=== PATIENT | male | born 1935 | race Caucasian/White ===

== ENCOUNTER 2016-04-09 18:06 | Inpatient (IN) | payer MEDICARE, BC ==
[~2016-04-09] VITALS: Ht 170.2 cm; Wt 85.0 kg
[~2016-04-09 18:06] MED LIST: ACET500C3 PO; ADV25050 INHALATION; CLON-379 PO; CLOP75TA4 PO; ESOM40CA PO; FEBU40TA PO; LEVO125T75 PO; LINE600T6 PO; MIN10 PO; OMEG1CAP2 PO; SENN-53 PO; TAMS0.4C2 PO; VALS320T11 PO; XOP15INH INH
[2016-04-09] MEDS ORDERED: SOD CHLORIDE 0.9% 250 ML IV STA (18:30)
[2016-04-09] MEDS ORDERED: ONDANSETRON 4 MG INJ IV STA (18:30)
[2016-04-09] MEDS ORDERED: HYDROmorphONE 1 MG/ML SYG IV STA (18:30)
--- NOTE | 2016-04-09 19:33 | RADRPT ---
PROCEDURE: XR Chest. CLINICAL INDICATION: Chest pain. TECHNIQUE: Single frontal view. COMPARISON: 03/28/2016. FINDINGS: There is a tunneled right internal jugular vein dialysis catheter with the tip in the superior vena cava. Bilateral interstitial disease is unchanged. The lungs are otherwise clear. The heart is mildly enlarged. There is calcification in the aorta consistent with atherosclerosis. There is no pleural effusion. There is no pneumothorax. IMPRESSION: 1. Dialysis catheter in satisfactory position. 2. Bilateral interstitial disease, unchanged. 3. Cardiomegaly and atherosclerosis. RPTAT: QQ .Kal Bowens MD, MD Date Time Electronically viewed and signed by .Kal Bowens MD, MD on 04/09/2016 19:33 .R/
[2016-04-09 19:35] LABS: BASOPHILS % 0.4 % (0.0-2.0); EOSINOPHILS # 0.2 10^3/ul (0.0-0.5); HEMATOCRIT 28.7 % (42.0-52.0); HEMOGLOBIN 9.4 g/dl (14.0-18.0); LYMPHOCYTES # 1.6 10^3/ul (0.8-2.9); LYMPHOCYTES % 16.6 % (15.0-51.0); MEAN CORPUSCULAR HEMOGLOBIN 29.3 pg (29.0-33.0); MEAN CORPUSCULAR HGB CONC 32.7 g/dl (32.0-37.0); MEAN CORPUSCULAR VOLUME 89.5 fl (82.0-101.0); MEAN PLATELET VOLUME 6.4 fl (7.4-10.4); MONOCYTE # 0.7 10^3/ul (0.3-0.9); MONOCYTES % 7.3 % (0.0-11.0); NEUTROPHIL # 7.1 10^3/ul (1.6-7.5); NEUTROPHILS % 73.7 % (39.0-77.0); PLATELET COUNT 227 10^3/UL (140-440); RED BLOOD COUNT 3.21 10^6/ul (4.70-6.10); RED CELL DISTRIBUTION WIDTH 17.7 % (11.5-14.5); UNCORRECTED WBC 9.6 10^3/ul (4.8-10.8); WHITE BLOOD COUNT 9.6 10^3/ul (4.8-10.8)
[2016-04-09 19:38] LABS: CONDITION 1; LH ANALYZER COMMENTS 1
[2016-04-09 19:44] LABS: ALBUMIN 3.1 g/dl (3.3-4.9)
[2016-04-09 19:45] LABS: POTASSIUM 3.5 mmol/L (3.5-5.1)
[2016-04-09 19:47] LABS: ALBUMIN/GLOBULIN RATIO 0.77; BILIRUBIN,INDIRECT 0.1 mg/dl (0-1.1); BILIRUBIN,TOTAL 0.1 mg/dl (0.2-1.3); CREATININE 6.35 mg/dl (0.61-1.24); TOTAL PROTEIN 7.1 g/dl (6.1-8.1)
[2016-04-09 19:48] LABS: CALCIUM 8.5 mg/dl (8.4-10.2)
--- NOTE | 2016-04-09 20:01 | RADRPT ---
PROCEDURE: CT Abdomen and Pelvis without contrast. CLINICAL INDICATION: Abdominal and pelvic pain. TECHNIQUE: CT scan of the abdomen and pelvis without contrast was performed. Coronal and sagittal reformatted images were obtained from the axial source images. Images were reviewed on a high-resolu tion PACS workstation. Total exam DLP is 711.80 mGy-cm. CTDIvol is 11.49 mGy. COMPARISON: CT scan of the chest dated 03/22/2016 which demonstrated cardiomegaly, small pericardi al effusion, small pleural effusions, multifocal bronchiolitis, and emphysema. FINDINGS: The heart size is normal. There is coronary artery calcification. There is a small pericardial eff usion, unchanged. Small bilateral pleural effusions with left larger than right are unchanged. The re is a calcified right pleural plaque which may indicate prior infection or asbestos exposure. Emp hysematous changes are present at the lung bases and there is bibasilar bronchiolitis, unchanged. The liver is normal in size and attenuation. There is no focal hepatic lesion. The gallbladder and bile ducts are normal. The spleen is normal in size. There is no focal splenic lesion. Both adrenals are normal with no enlargement or mass. The pancreas is unremarkable with no mass or evidence of pancreatitis. There is no solid renal mass, hydronephrosis, or calculus. There are benign bilateral renal cysts w ith the largest on the right measuring 3.7 cm and the largest on the left measuring 3.2 cm. The abdominal aorta is not dilated. There is calcification in the aorta consistent with atheroscler osis. There is no retroperitoneal lymphadenopathy or mass. There is no pelvic lymphadenopathy or mass. The bladder and distal ureters are normal. The periappendiceal region is unremarkable with no evidence of appendicitis. The bowel and mesentery are normal. There is no free fluid or free gas. There are degenerative changes of the spine. There is no fracture or lytic lesion. IMPRESSION: 1. Coronary artery calcification. 2. Unchanged cardiomegaly, small pericardial effusion, small bilateral pleural effusions, multifoca l bronchiolitis, and emphysema. 3. Benign bilateral renal cysts. 4. Atherosclerosis. 5. Degenerative changes of the spine. RPTAT: QQ .Kal Bowens MD, Date Time Electronically viewed and signed by .Kal Bowens MD, on 04/09/2016 20:01 .R/
--- NOTE | 2016-04-09 21:34 | ERA ---
ER Documentation Chief Complaint Date/Time DATE: 04/09/16 TIME: 21:28 Chief Complaint BIB RA FOR EVAL OF AP FROM DIALYSIS. HPI This is a 80-year-old male with a history of COPD and CHF renal failure on dialysis hypertension diabetes osteoporosis. The patient was at dialysis prior to arrival and when he finished dialysis he was starting to have diffuse mid abdominal pain with low blood pressure. Patient states that he has had the same type of abdominal pain near the end of dialysis in the past. He is having no nausea vomiting or diarrhea. He says he has had chest pain sometimes like this in the past but no chest pain today. Patient describes the pain is dull and nonradiating. Denies headache denies syncope ROS All systems reviewed and are negative except as per history of present illness. Medications Home Meds Active Scripts Linezolid (Linezolid) 600 Mg Tablet, 600 MG PO BID for 10 Days, TAB Prov:HINA CASTILLO MD 04/04/16 Reported Medications Acetaminophen (Mapap) 500 Mg Capsule, 1000 MG PO Q4H Y for PAIN, CAP 01/13/16 Sennosides* (Senna Lax*) 8.6 Mg Tablet, 1 TAB PO Q12H Y for CONSTIPATION, TAB 01/13/16 Levalbuterol* (Xopenex* HFA) 15 Gm Inha, 2 PUFFS INH Q4H Y for WHEEZING AND SOB , INHALER 01/13/16 Gilsum-3 Acid Ethyl Esters (Lovaza) 1 Gm Capsule, 1 GM PO BID, CAP 01/13/16 Minoxidil* (Lonitin*) 10 Mg Tab, 10 MG PO DAILY, TAB 01/13/16 Clonidine Hcl* (Clonidine Hcl*) 0.1 Mg Tab, 0.1 MG PO BID, TAB 01/13/16 Valsartan* (Diovan*) 320 Mg Tablet, 320 MG PO DAILY, TAB 01/13/16 Salmeterol Xinaf/Fluticasone* (Advair*) 250-50 Diskus Inhaler, 1 INH INHALATION BID, #1 INHALER 11/28/15 Clopidogrel Bisulfate* (Clopidogrel Bisulfate*) 75 Mg Tablet, 75 MG PO DAILY, # 30 TAB 11/28/15 Febuxostat* (Uloric*) 40 Mg Tablet, 40 MG PO DAILY, TAB 11/28/15 Esomeprazole Mag Trihydrate (Nexium) 40 Mg Capsule.dr, 40 MG PO DAILY, #30 CAP 11/28/15 Tamsulosin Hcl* (Tamsulosin Hcl*) 0.4 Mg Cap.er.24h, 0.4 MG PO HS, CAP 11/28/15 Levothyroxine Sodium* (Levothyroxine Sodium*) 125 Mcg Tablet, 125 MCG PO BEFORE BREAKFAST, #30 TAB 11/28/15 Allergies Allergies: Coded Allergies: No Known Allergy (Unverified , 04/09/16) PMhx/Soc History of Surgery: No Anesthesia Reaction: No Hx Neurological Disorder: Yes (DEMENTIA,DEPRESSION) Hx Respiratory Disorders: Yes (FORMER SMOKER, FREQUENT COUGH) Hx Cardiac Disorders: Yes (HTN,CHF,CAD,HYPERCHOLESTEROLEMIA) Hx Psychiatric Problems: Yes (DEPRESSION,ANXIETY) Hx Miscellaneous Medical Probl: Yes (CHF,COPD,hypoxemian,BPH,major depression, OA,anemia) Hx Alcohol Use: No Hx Substance Use: No Hx Tobacco Use: Yes Smoking Status: Former smoker FmHx Family History: No coronary disease Physical Exam Vitals Vital Signs Date Time Temp Pulse Resp B/P Pulse Ox O2 Delivery O2 Flow Rate FiO2 04/09/16 21:13 97 2.0 28 04/09/16 20:30 110 20 85/43 99 Room Air 04/09/16 18:27 97.9 120 19 94/50 98 Physical Exam Const: Well-developed, well-nourished Head: Atraumatic, normocephalic Eyes: Normal Conjunctiva, PERRLA, EOMI, normal sclera, no nystagmus ENT: Normal External Ears, Nose and Mouth, moist mucus membranes. Neck: Full range of motion. No meningismus, no lymphadenopathy. Resp: Clear to auscultation bilaterally, no wheezing, rhonchi, rales Cardio: Tachycardia, no murmurs, S1 S2 present Abd: Soft, mild diffuse mid abdominal tenderness, non distended. Normal bowel sounds, no guarding or rebound, no pulsitile abdominal masses or bruits Skin: No petechiae or rashes, no ecchymosis , no maculopapular rash Back: No midline or flank tenderness Ext: No cyanosis, or edema, FROM x 4, normal inspection, neurovascularly intact x 4 Neur: Awake and alert, STR 5/5 x 4, sensation intact x 4, no focal findings, cerebellum intact Psych: Normal Mood and Affect Result Diagram: 04/09/16185804/09/16 185 Results 24 hrs Laboratory Tests Test 04/09/16 18:59 Alanine Aminotransferase (ALT/SGPT) 46IU/L Albumin 3.1g/dl Albumin/Globulin Ratio 0.77 Alkaline Phosphatase 74IU/L Anion Gap 19 Aspartate Amino Transf (AST/SGOT) 20IU/L Basophils # 0.010^3/ul Basophils % 0.4% Blood Morphology Comment Blood Urea Nitrogen 54mg/dl Calcium Level 8.5mg/dl Carbon Dioxide Level 25mmol/L Chloride Level 98mmol/L Creatinine 6.35mg/dl Direct Bilirubin 0.00mg/dl Eosinophils # 0.210^3/ul Eosinophils % 2.0% Globulin 4.00g/dl Glucose Level 88mg/dl Hematocrit 28.7% Hemoglobin 9.4g/dl Indirect Bilirubin 0.1mg/dl Lipase 77U/L Lymphocytes # 1.610^3/ul Lymphocytes % 16.6% Mean Corpuscular Hemoglobin 29.3pg Mean Corpuscular Hemoglobin Concent 32.7g/dl Mean Corpuscular Volume 89.5fl Mean Platelet Volume 6.4fl Monocytes # 0.710^3/ul Monocytes % 7.3% Neutrophils # 7.110^3/ul Neutrophils % 73.7% Nucleated Red Blood Cells # 0.010^3/ul Nucleated Red Blood Cells % 0.0/100WBC Platelet Count 48356^3/UL Potassium Level 3.5mmol/L Red Blood Count 3.2110^6/ul Red Cell Distribution Width 17.7% Sodium Level 138mmol/L Total Bilirubin 0.1mg/dl Total Protein 7.1g/dl Troponin I 0.098ng/ml White Blood Count 9.610^3/ul Current Medications Medications (Trade) Dose Ordered Sig/Bettina Route PRN Reason Start Time Stop Time Status Last Admin Dose Admin Sodium Chloride (NS) 250 ml @ 250 mls/hr Q1H STAT IV 04/09/16 18:30 04/09/16 19:29 DC Hydromorphone HCl (Dilaudid) 0.5 mg ONCE STAT IV 04/09/16 18:30 04/09/16 18:34 DC 04/09/16 19:08 Ondansetron HCl 4 mg 4 mg ONCE STAT IV 04/09/16 18:30 04/09/16 18:34 DC 04/09/16 19:08 Sodium Chloride (NS) 250 ml @ 250 mls/hr Q1H ONCE IV 04/09/16 22:00 04/09/16 22:59 Procedures/MDM EKG: Rate/Rhythm: Sinus tachycardia heart rate 120 QRS, ST, QT: NORMAL ND, QRS, QT] Impression: [Tachycardia, sinus PROCEDURE: XR Chest. CLINICAL INDICATION: Chest pain. TECHNIQUE: Single frontal view. COMPARISON: 03/28/2016. FINDINGS: There is a tunneled right internal jugular vein dialysis catheter with the tip in the superior vena cava. Bilateral interstitial disease is unchanged. The lungs are otherwise clear. The heart is mildly enlarged. There is calcification in the aorta consistent with atherosclerosis. There is no pleural effusion. There is no pneumothorax. IMPRESSION: 1. Dialysis catheter in satisfactory position. 2. Bilateral interstitial disease, unchanged. 3. Cardiomegaly and atherosclerosis. RPTAT: QQ .Kal Bowens MD, MD Date Time Electronically viewed and signed by .Kal Bowens MD, MD on 04/09/2016 19:33 .R/ CC: ELICEO MCELROY DO PROCEDURE: CT Abdomen and Pelvis without contrast. CLINICAL INDICATION: Abdominal and pelvic pain. TECHNIQUE: CT scan of the abdomen and pelvis without contrast was performed. Coronal and sagittal reformatted images were obtained from the axial source images. Images were reviewed on a high-resolution PACS workstation. Total exam DLP is 711.80 mGy-cm. CTDIvol is 11.49 mGy. COMPARISON: CT scan of the chest dated 03/22/2016 which demonstrated cardiomegaly, small pericardial effusion, small pleural effusions, multifocal bronchiolitis, and emphysema. FINDINGS: The heart size is normal. There is coronary artery calcification. There is a small pericardial effusion, unchanged. Small bilateral pleural effusions with left larger than right are unchanged. There is a calcified right pleural plaque which may indicate prior infection or asbestos exposure. Emphysematous changes are present at the lung bases and there is bibasilar bronchiolitis, unchanged. The liver is normal in size and attenuation. There is no focal hepatic lesion. The gallbladder and bile ducts are normal. The spleen is normal in size. There is no focal splenic lesion. Both adrenals are normal with no enlargement or mass. The pancreas is unremarkable with no mass or evidence of pancreatitis. There is no solid renal mass, hydronephrosis, or calculus. There are benign bilateral renal cysts with the largest on the right measuring 3.7 cm and the largest on the left measuring 3.2 cm. The abdominal aorta is not dilated. There is calcification in the aorta consistent with atherosclerosis. There is no retroperitoneal lymphadenopathy or mass. There is no pelvic lymphadenopathy or mass. The bladder and distal ureters are normal. The periappendiceal region is unremarkable with no evidence of appendicitis. The bowel and mesentery are normal. There is no free fluid or free gas. There are degenerative changes of the spine. There is no fracture or lytic lesion. IMPRESSION: 1. Coronary artery calcification. 2. Unchanged cardiomegaly, small pericardial effusion, small bilateral pleural effusions, multifocal bronchiolitis, and emphysema. 3. Benign bilateral renal cysts. 4. Atherosclerosis. 5. Degenerative changes of the spine. RPTAT: QQ .Kal Bowens MD, MD Date Time Electronically viewed and signed by .Kal Bowens MD, MD on 04/09/2016 20:01 .R/ CC: ELICEO MCELROY DO Patient's heart rate did come down to 111 and then he went to the restroom and came back with a heart rate of 138. Blood pressure responded to 250 cc of normal saline and is steadily started to decline to a systolic of 77. Will repeat another 250 NS we will admitted to the hospital for observation. CT scan of the abdomen does not show anything acute. He may have taken off too much fluid at dialysis and this is could be causing some low blood pressure with possible slight ischemic symptoms in his gut due to hypoperfusion EKG2: Sinus tachycardia heart rate 129 Rate/Rhythm: Normal Sinus Rhythm,NL intervals QRS, ST, QT: NORMAL ND, QRS, QT] Impression: Sinus tachycardia] Departure Diagnosis: Primary Impression: Hypotension Qualified Code: I95.3 - Hemodialysis-associated hypotension Additional Impressions: Tachycardia Abdominal pain Qualified Code: R10.9 - Abdominal pain, unspecified location Condition: ELICEO Coelho DO Apr 09, 2016 21:34
[2016-04-09] MEDS ORDERED: SOD CHLORIDE 0.9% 250 ML IV ONE ×2 (22:00→23:00)
[2016-04-09] MEDS ORDERED: SOD CHLORIDE 0.9% 1,000 ML IV SCH (22:20)
[2016-04-09] MEDS ORDERED: ACETAMINOPHEN 325 MG TAB PO PRN (22:30)
[2016-04-09] MEDS ORDERED: ONDANSETRON 4 MG INJ IV PRN (22:30)
[2016-04-10] VITALS (14 sets, daily range): BP systolic 108–143; BP diastolic 54–63; PULSE 90–160; RESP 18–20; TEMP 98.2; Ht 170.2 cm; Wt 85.0 kg
[2016-04-10] MEDS ORDERED: ALBUTEROL 0.5% (NEB) 2.5 MG/0.5 ML AMP HHN PRN (11:30)
[2016-04-10] MEDS ORDERED: IPRATROPIUM (NEB) 0.5 MG/2.5 ML AMP HHN PRN (11:30)
[2016-04-10 11:48] LABS: AADO2 Arterial 47.5 mmHg (7.0-24.0); Allen Test ACCEPTAB; Arterial Base Excess -2.4 mmol/L (-3.0-3); Arterial COHb 0.1 % (0.0-3.0); Arterial Fraction of Oxyhgb 95.8 % (93.0-99.0); Arterial HCO3 23.8 mmol/L (22.0-26.0); Arterial MetHb 0.2 % (0.0-1.5); Arterial Total Hemglobin 11.1 g/dl (12.0-18.0); MODE NASAL CANNULA
[2016-04-10 12:16] LABS: IRON 31 ug/dl (35-150)
[2016-04-10 12:18] LABS: CALCIUM 8.5 mg/dl (8.4-10.2); CREATININE 7.49 mg/dl (0.61-1.24); MAGNESIUM 1.9 mg/dl (1.7-2.5)
[2016-04-10 12:25] LABS: TOTAL IRON BINDING CAPACITY 145 ug/dl (241-421)
[2016-04-10 13:01] LABS: ADD UMIC YES; URINE BILIRUBIN (Dip) NEGATIVE (NEGATIVE); URINE BLOOD (Dip) 3+ (NEGATIVE); URINE COLOR LT. YELLOW (YELLOW); URINE GLUCOSE (Dip) NEGATIVE (NEGATIVE); URINE KETONES (Dip) NEGATIVE (NEGATIVE); URINE LEUKOCYTE ESTERASE (Dip) NEGATIVE (NEGATIVE); URINE NITRITE (Dip) NEGATIVE (NEGATIVE); URINE TOTAL PROTEIN (Dip) 4+ (NEGATIVE); URINE UROBILINOGEN (Dip) 0.2 E.U./dL (0.1-1.0)
[2016-04-10 13:23] LABS: BACTERIA,URINE MODERATE; URINE RBCS >50 /HPF (0)
[2016-04-10] MEDS: EPOETIN 10000 UNITS/1 ML INJ (ESRD) SC SCH (17:37)
--- NOTE | 2016-04-10 19:12 | HP ---
Date/Time of Note Date/Time of Note DATE: 04/10/16 TIME: 19:03 Assessment/Plan VTE Prophylaxis VTE Prophylaxis Intervention: ambulation, anti-embolic stocking VTE Contraindication Reason: peripheral vascular disease Lines/Catheters IV Catheter Type (from Nrsg): Saline Lock Central line still needed: No Urinary Cath still in place: No Reason Cath still needed: urinary retention Assessment/Plan Chief Complaint/Hosp Course 1. Hypotension after clonidine use before dialysis now improved(after fluid challenge. 2. Episode of losing awareness while having decreased BP to 70/30mm HG ; before and during dialysis. 3. End-stage renal disease. 4. Tachycardia- persists 5. Diabetes type 2. 6. Osteoporosis. 7. Osteoarthritis. 8. Anemia of chronic disease. 9. Status post multiple units of packed red blood cell transfusions. 10. Weight loss. 11. Hypertension. 12. Memory impairment. 13. Major depression. 14. Back pain. 15. Benign prostatic hypertrophy. 16. S/P left forearm a/v shunt placement for dialysis, with good drill on palpation.. 17. S/P right Jugular vein cannulation for dialysis 18. Hypoxemia 19. Anxiety-depression 20. Excessive thirst. 21.COPD persists, no exacerbation. 22.Leukocytosis- improved . 23. Weight loss- progressive 24.Poor anger control with dissatisfaction and attitude of blaming everybody during anger episodes without awareness of wrongdoing. 25.Hypothyroidism 26.Chronic uti 27.S/P BIPAP us for hypercapnia now Pc02 47 and PH 7.32. 28.Severe weakness and fatigue, progressively worse. Patient Condition: Fair Hx of Present Illness 2 days HX of worsening of sob with chills. Got worse mainly after the dialysis and paramedics called after the severe sob. Hospital Course IMPRESSION AND PLAN: 1. Transient hypoxemia likely secondary to volume overload. 2. End-stage renal failure. 3. Wide complex tachycardia on hemodialysis, concerning for underlying coronary artery disease. Patient will require: 1. Cardiology evaluation and recommendations, possible stress test and angiogram when more stable. 2. Continue hemodialysis as tolerated. 3. Supplemental O2 as needed. 4. DVT and GI prophylaxis. 1. Coronary artery calcification. 2. Unchanged cardiomegaly, small pericardial effusion, small bilateral pleural effusions, multifocal bronchiolitis, and emphysema. 3. Benign bilateral renal cysts. 4. Atherosclerosis. 5. Degenerative changes of the spine. Problems: Assessment/Plan Control Tachicardia and hypovolemia and d/c. HPI/ROS Admit Date/Time Admit Date/Time My pressure dropped during dialysis and I become sleepy. I don't remember detail. I believe when I am getting clonidine and after that I am undergoing HD my BP drops every time like this time.Apr 09, 2016 at 22:21 ROS Constitutional: chills, disoriented, nausea, poor po, weight change Eyes: pain, visual change, No discharge, No no complaints, No other, No redness ENT: congestion, pain, sore throat, No bleeding, No discharge, No dysphagia, No no complaints, No other Respiratory: cough, pain, pleuritic pain, shortness of breath, No no complaints, No other, No sputum, No wheezing Cardiovascular: chest pain, lightheadedness, paroxysmal nocturnal dyspnea, No edema, No no complaints, No orthopenea, No other, No palpitations Gastrointestinal: constipation, flatus, pain, passing stool, No blood, No decreased appetite, No diarrhea, No nausea, No no complaints, No other, No vomiting Genitourinary: dysuria, No bleeding, No discharge, No flank pain, No hematuria, No no complaints, No other Musculoskeletal: back pain, bone/joint pain, neck pain, No no complaints, No other, No restricted range of motion, No swelling Skin: bruising, pruritis, No erythema, No laceration, No no complaints, No other, No rash, No skin lesions Neurologic: dizziness, headache, No confusion, No focal-weakness, No no complaints, No other, No seizure, No syncope Endocrine: dry skin, polydypsia, weight change (lost totally more than 65lb in 8 months.), No no complaints, No other, No polyuria, No temp intolerance Lymphatic: No adenopathy, No lymphadema, No no complaints, No other, No tender nodes Psychological: anxiety, depression, other (impaired memory.) Immunologic: pruritis PMH/Family/Social Past Medical History Medical History: angina, colitis, congestive heart failure, coronary artery disease, diabetes, diverticulitis, GERD, GI bleed, high cholesterol, hypertension, hypothyroid, renal disease, urinary tract infection Past Surgical History Past Surgical Hx: angioplasty (S/p right HD cathter insertion and s/p ; eft forearm dialysis AV shunt vs graft placement.), coronary bypass surgery, endoscopy, other Family History Significant Family History: heart disease, COPD, diabetes Social History Alcohol Use: rarely Smoking Status: Former smoker Drug Use: none Exam/Review of Systems Vital Signs Vitals Vital Signs Date Time Temp Pulse Resp B/P Pulse Ox O2 Delivery O2 Flow Rate FiO2 04/10/16 16:31 98.7 128 20 141/63 97 04/10/16 15:00 Nasal Cannula 2.0 04/09/16 21:13 28 Exam Constitutional: alert, distress, oriented, No frail, No non-verbal, No other, No well developed Psych: anxiety, confusion, depression, No nl mood/affect, No no complaints, No other, No suicidal Head: atraumatic, No hematomas, No lacerations, No normocephalic, No other Eyes: EOMI, PERRL, nl lids, No fundi, disc, No icteric, No nl conjunctiva, No nl sclera, No other ENMT: nl nasal mucosa & septum, tympanic membranes (sclerotic), No intubated, No mucosa pink and moist, No nl external ears & nose, No nl lips & teeth, No other Neck: bruits, non-tender Respiratory: congested cough, intercostal retraction, labored breathing, No clear to auscultation, No crackles/rales, No diminished breath sounds, No normal air movement, No other, No respirations, No tactile fremitus, No wheezing Cardiovascular: bruits, irregular rhythm (tachycardic.), systolic murmur, No S3, No S4, No diastolic murmur, No edema, No gallop, No jugular venous distention (JVD), No murmurs/extra sounds, No nl pulses, No other, No regular rate and rhythm, No rub Gastrointestinal: bowel sounds, nl liver, spleen, soft, No ascites, No distended, No firm, No hepatomegaly, No mass, No non-tender, No other, No rebound or guarding, No splenomegaly, No surgical scars, No tender Genitourinary - Male: CVA tenderness, nl penis, nl scrotum, No discharge, No other Genitourinary - Female: CVA tenderness, nl external genitalia, No CMT, No nl adnexae, No other, No uterus Musculoskeletal: joint tenderness Extremities: calf tenderness, tenderness, No clubbing, No cyanosis, No edema, No normal pulses, No other, No palpable cord, No pitting pedal edema 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
[2016-04-10] MEDS ORDERED: SENNA TAB PO PRN (19:30)
[2016-04-10] MEDS ORDERED: METOPROLOL 25 MG TAB PO ONE (21:00)
[2016-04-10] MEDS ORDERED: LEVALBUTEROL (NEB) 0.63 MG/3 ML AMP HHN PRN (21:00)
[2016-04-10] MEDS ORDERED: LEVALBUTEROL (NEB) 0.63 MG/3 ML AMP ONE (21:00)
[2016-04-10] MEDS: LEVALBUTEROL (NEB) 0.63 MG/3 ML AMP HHN SCH (21:12)
--- NOTE | 2016-04-10 22:31 | RADRPT ---
PROCEDURE: XR Chest. CLINICAL INDICATION: Chest pain, shortness of breath TECHNIQUE: Single frontal view of the chest was obtained. COMPARISON: 04/09/2016 FINDINGS: The cardiomediastinal silhouette is normal size. There is mild to moderate aortic calcification. T here are is patchy air space opacification increased from prior examination. There is scattered bud ices changes consistent with extensive emphysema There are old left lower lateral rib deformities. IMPRESSION: 1. Patchy air space opacification through both lungs, likely reflect evolving pneumonia, increased. 2. Bullous emphysematous changes. 3. Mild to moderate aortic calcification. RPTAT: HBST .Griffin Edmondson MD, MD Date Time Electronically viewed and signed by .Griffin Edmondson MD, on 04/10/2016 22:31 .T/
[2016-04-10] MEDS: ZYVOX 600 MG TAB PO SCH (22:59)
[2016-04-10] MEDS: VALSARTAN 160 MG TAB PO SCH (22:59)
[2016-04-10] MEDS: TAMSULOSIN (SR) 0.4 MG CAP PO SCH (22:59)
[2016-04-10] MEDS: SALMETEROL/FLUTICASONE 250/50 INHA INH SCH (23:00)
[2016-04-10] MEDS: CLOPIDOGREL 75 MG TAB PO SCH (23:00)
[2016-04-11] VITALS (18 sets, daily range): BP systolic 97–131; BP diastolic 45–72; PULSE 90–128; RESP 15–20
[2016-04-11 07:09] LABS: BASOPHILS % 0.4 % (0.0-2.0); EOSINOPHILS # 0.1 10^3/ul (0.0-0.5); HEMATOCRIT 25.1 % (42.0-52.0); HEMOGLOBIN 8.3 g/dl (14.0-18.0); LYMPHOCYTES # 1.5 10^3/ul (0.8-2.9); LYMPHOCYTES % 14.4 % (15.0-51.0); MEAN CORPUSCULAR HEMOGLOBIN 29.7 pg (29.0-33.0); MEAN CORPUSCULAR HGB CONC 33.2 g/dl (32.0-37.0); MEAN CORPUSCULAR VOLUME 89.5 fl (82.0-101.0); MEAN PLATELET VOLUME 6.4 fl (7.4-10.4); MONOCYTE # 0.8 10^3/ul (0.3-0.9); MONOCYTES % 7.9 % (0.0-11.0); NEUTROPHIL # 7.9 10^3/ul (1.6-7.5); NEUTROPHILS % 76.3 % (39.0-77.0); PLATELET COUNT 203 10^3/UL (140-440); RED CELL DISTRIBUTION WIDTH 17.8 % (11.5-14.5); UNCORRECTED WBC 10.3 10^3/ul (4.8-10.8); WHITE BLOOD COUNT 10.3 10^3/ul (4.8-10.8)
[2016-04-11 07:12] LABS: CONDITION 1; LH ANALYZER COMMENTS 1
[2016-04-11 07:28] LABS: POTASSIUM 4.1 mmol/L (3.5-5.1)
[2016-04-11 07:31] LABS: CREATININE 7.45 mg/dl (0.61-1.24); PHOSPHORUS 5.9 mg/dl (2.5-4.9)
[2016-04-11 07:32] LABS: CALCIUM 8.2 mg/dl (8.4-10.2)
[2016-04-11 08:15] LABS: IRON 18 ug/dl (35-150)
[2016-04-11 08:24] LABS: TOTAL IRON BINDING CAPACITY 140 ug/dl (241-421)
[2016-04-11] MEDS ORDERED: HEPARIN 1000 UNITS/ML 10 ML INJ ONE (08:54)
[2016-04-11] MEDS ORDERED: INFLUENZA VIRUS VACCINE 0.5 ML (DISPENSING) IM* ONE (09:00)
[2016-04-11] MEDS: LEVALBUTEROL (NEB) 0.63 MG/3 ML AMP HHN SCH ×3 (09:05→20:43)
[2016-04-11] MEDS: SALMETEROL/FLUTICASONE 250/50 INHA INH SCH ×2 (09:15→20:03)
[2016-04-11] MEDS: FEBUXOSTAT 40 MG TABLET PO SCH (09:16)
[2016-04-11] MEDS: CLOPIDOGREL 75 MG TAB PO SCH (09:16)
[2016-04-11] MEDS: VALSARTAN 160 MG TAB PO SCH (09:16)
[2016-04-11] MEDS: ZYVOX 600 MG TAB PO SCH ×2 (09:17→20:03)
[2016-04-11] MEDS: METOPROLOL 25 MG TAB PO SCH ×2 (09:17→20:08)
[2016-04-11] MEDS: MINOXIDIL 10 MG TAB PO SCH (09:18)
[2016-04-11] MEDS ORDERED: HEPARIN 1000 UNITS/ML 10 ML INJ CATHETER ONE (11:00)
--- NOTE | 2016-04-11 11:00 | OPR ---
Date/Time of Note Date/Time of Note DATE: 04/11/16 TIME: 10:59 Operative Report Free Text/Dictation DATE OF OPERATION: 04/11/2016 SURGEON: Solitario Hamilton MD PREOPERATIVE DIAGNOSIS: ESRD POSTOPERATIVE DIAGNOSIS: same ANESTHESIA: Local BLOOD LOSS: minimal COMPLICATIONS: None. ACCESS: Right common femoral vein INDICATIONS: This is a 80 year-old male with ESRD requiring urgent dialysis. Patient and family have been informed of the alternatives, risks, and benefits. Risks including but not limited to bleeding, thrombosis, embolization, myocardial infarction, , device malfunction, infection, pneumothorax, nephrotoxicity and patient has agreed to proceed. PROCEDURE: 1. Ultrasound guided access of right common femoral vein 2. Emergent Right common femoral vein non-tunneled hemodialysis catheter placement DESCRIPTION: The patient was in supine position in bed. Bed was placed in slight Trendelenburg position and the groin was prepped and draped with sterile technique. The central catheter was flushed with heparin to ensure function of each port. Landmarks were identified and the skin entry site was chosen using ultrasound guidance. The skin And subcutaneous tissue were anesthetized with 1% lidocaine. The vein was then located with a needle with a 10 mL syringe using ultrasound guidance. The needle was then directed towards the vein and was entered. The needle position was secured and syringe was removed. The hub was occluded to prevent venous air embolus. The guidewire was passed easily and the needle was removed while the wire was held in place. A small incision was then made at the point of the wire entry. The dilator was placed over the wire and the tract gently dilated. The catheter was fed over the wire, ensuring the wire exited from the port before advancing the catheter. The catheter was inserted to the desired depth and the wire removed. Each port was aspirated to ensure adequate blood flow and then flushed with heparinized saline solution. The catheter was secured in place with a 2-0 nylon suture and a sterile dressing was applied. The patient tolerated the procedure well and was in stable condition. All instrument, sponge and needle counts were correct 2. SOLITARIO HAMILTON MD Apr 11, 2016 10:59
--- NOTE | 2016-04-11 13:12 | CONS ---
DATE OF ADMISSION: 04/09/2016 DATE OF CONSULTATION: 04/11/2016 TYPE OF CONSULTATION: Vascular Surgery Consultation. Dear Doctors: Mr. Kim is a 80-year-old gentleman with a history of end-stage renal disease, [facility] with a longstanding history of chest pain, shortness of breath, and hypotens ion during his dialysis sessions. This patient had an episode where he had generalized weakness and low blood pressure during his dialysis session yesterday and was admitted to the hospital for furth er evaluation. It seems that, overnight, the patient's right chest wall catheter was dislodged and he was not able to undergo dialysis. Vascular Surgery consultation was obtained in order for placem ent of an emergent dialysis catheter. At the moment, the patient denies shortness of breath, chest pain, nausea, vomiting, fever, or chil ls. He denies claudication or rest pain-like symptoms. Patient also denies left upper extremity cl audication or rest-pain. REVIEW OF SYSTEMS: A 12-point review performed and negative, except what is mentioned in the HPI. PAST MEDICAL HISTORY: Entails end-stage renal disease, tachycardia, diabetes type 2, osteoporosis, osteoarthritis, anemia of chronic disease, multiple blood transfusions, dementia, depression, chroni c back pain, benign prostate hypertrophy, COPD, failure to thrive, hypothyroidism, chronic UTI, erasto estive heart failure, coronary artery disease, diverticulitis, hypercholesterolemia, and history of GI bleed. PAST SURGICAL HISTORY: Right chest wall hemodialysis catheter placement, left arm brachiobasilic fi stula creation, coronary bypass surgery, endoscopy. FAMILY HISTORY: Positive for coronary artery disease, COPD, and diabetes. SOCIAL HISTORY: Denies current tobacco, alcohol, or illicit drug use, ex-smoker. PHYSICAL EXAMINATION: GENERAL: Alert and oriented x3, no apparent distress. PULMONARY: Coarse breath sounds bilaterally, no crackles. CARDIOVASCULAR: S1, S2 present. No murmurs identified. HEENT: Normocephalic, atraumatic. PERRLA. EOMI. NECK: Supple. No carotid bruit. ABDOMEN: Soft, nontender, nondistended. Bowel sounds positive. Truncal obesity. LOWER EXTREMITIES: Palpable femoral pulses, nonpalpable pedal pulses. Motor, sensory intact. Capi llary refill 2 to 3 seconds. LEFT UPPER EXTREMITY: Palpable brachial pulse. Motor and sensory intact. Cap refill 2 to 3 second s. Surgical scar well healed. Brachiobasilic fistula with bruit and thrill present. ASSESSMENT AND PLAN: End-stage renal disease: It seems that the patient's right chest wall catheter has dislodged and he requires urgent dialysis, as he was not able to complete his session yesterday. We will plan to pl veronica an emergent right groin common femoral vein dialysis catheter for him today, at the bedside. Fu rther, we will plan to obtain a left upper extremity ultrasound of his fistula in order to evaluate for his maturation and possible use for his dialysis sessions. At the moment, we will hold off on scheduling him for perm catheter placement, as he may be able to use his left upper extremity fistula. Optimize vascular status (BP meds, diet, nutrition, exercise, sugar control, antiplatelet). Discussed findings with plan and management with the patient and his son, who was at the bedside and they understand, with a certified router operator radial. Thank you for allowing us to partake in the care of your patient. Please call with any questions. Dictated By: TAHIR SEGAL/CAMILO Conf#: [id number] DID#: [id number]
--- NOTE | 2016-04-11 18:37 | PN ---
Date/Time of Note Date/Time of Note DATE: 04/11/16 TIME: 18:32 Assessment/Plan VTE Prophylaxis VTE Prophylaxis Intervention: ambulation, anti-embolic stocking VTE Contraindication Reason: peripheral vascular disease Lines/Catheters IV Catheter Type (from Nrsg): Sal[facility] Central line still needed: No Urinary Cath still in place: No Assessment/Plan Chief Complaint/Hosp Course 1. Hypotension after clonidine use before dialysis now improved(after fluid challenge. 2. Episode of losing awareness while having decreased BP to 70/30mm HG ; before and during dialysis. 3. End-stage renal disease. 4. Tachycardia- persists 5. Diabetes type 2. 6. Osteoporosis. 7. Osteoarthritis. 8. Anemia of chronic disease. 9. Status post multiple units of packed red blood cell transfusions. 10. Weight loss. 11. Hypertension. 12. Memory impairment. 13. Major depression. 14. Back pain. 15. Benign prostatic hypertrophy. 16. S/P left forearm a/v shunt placement for dialysis, with good drill on palpation.. 17. S/P right Jugular vein cannulation for dialysis 18. Hypoxemia 19. Anxiety-depression 20. Excessive thirst. 21.COPD persists, no exacerbation. 22.Leukocytosis- improved . 23. Weight loss- progressive 24.Poor anger control with dissatisfaction and attitude of blaming everybody during anger episodes without awareness of wrongdoing. 25.Hypothyroidism 26.Chronic uti 27.S/P BIPAP us for hypercapnia now Pc02 47 and PH 7.32. 28.Severe weakness and fatigue, progressively worse. Patient Condition: Fair Hx of Present Illness 2 days HX of worsening of sob with chills. Got worse mainly after the dialysis and paramedics called after the severe sob. Hospital Course IMPRESSION AND PLAN: 1. Transient hypoxemia likely secondary to volume overload. 2. End-stage renal failure. 3. Wide complex tachycardia on hemodialysis, concerning for underlying coronary artery disease. Patient will require: 1. Cardiology evaluation and recommendations, possible stress test and angiogram when more stable. 2. Continue hemodialysis as tolerated. 3. Supplemental O2 as needed. 4. DVT and GI prophylaxis. 1. Coronary artery calcification. 2. Unchanged cardiomegaly, small pericardial effusion, small bilateral pleural effusions, multifocal bronchiolitis, and emphysema. 3. Benign bilateral renal cysts. 4. Atherosclerosis. 5. Degenerative changes of the spine. Problems: Assessment/Plan s/p new HD access placement. Cont'd Hospitalization Reason: HD andf control bp and BS. Subjective 24 Hr Interval Summary Free Text/Dictation Dissatisfied due to of malfunctioning of right HD acces. Now s/p femoral new catheter placed. Constitutional: disoriented, poor po, requiring O2, No chills, No diaphoresis, No febrile, No improved, No no complaints, No other, No requiring IVF Eyes: visual change, No discharge, No no complaints, No other, No pain, No redness ENT: congestion, dysphagia, sore throat, No bleeding, No discharge, No no complaints, No other, No pain Respiratory: cough, pain, pleuritic pain, No no complaints, No other, No shortness of breath, No sputum, No wheezing Cardiovascular: chest pain, lightheadedness, paroxysmal nocturnal dyspnea, No edema, No no complaints, No orthopenea, No other, No palpitations Gastrointestinal: constipation, flatus, passing stool, No blood, No decreased appetite, No diarrhea, No nausea, No no complaints, No other, No pain, No vomiting Genitourinary: flank pain, No bleeding, No discharge, No dysuria, No hematuria, No no complaints, No other Musculoskeletal: back pain, bone/joint pain, No neck pain, No no complaints, No other, No restricted range of motion, No swelling Skin: pruritis, No bruising, No erythema, No laceration, No no complaints, No other, No rash , No skin lesions Neurologic: dizziness, headache, No confusion, No focal-weakness, No no complaints, No other, No seizure, No syncope Endocrine: No dry skin, No no complaints, No other, No polydypsia, No polyuria , No temp intolerance Lymphatic: No adenopathy, No lymphadema, No no complaints, No other, No tender nodes Psychological: anxiety, depression, No confusion, No nl mood/affect, No no complaints, No other, No suicidal Immunologic: pruritis, No immunodeficiency, No no complaints, No other, No rhinitis, No urticaria Exam/Review of Systems Vital Signs Vitals Vital Signs Date Time Temp Pulse Resp B/P Pulse Ox O2 Delivery O2 Flow Rate FiO2 04/11/16 18:00 127 04/11/16 18:00 19 04/11/16 15:58 98.2 126/72 96 04/11/16 13:17 2.0 12/31/16 13:13 Nasal Cannula 04/09/16 21:13 28 Intake and Output 04/10/16 04/10/16 04/11/16 15:00 23:00 07:00 Intake Total 400 ml 120 ml Balance 400 ml 120 ml Exam Constitutional: frail, oriented, No alert, No distress, No non-verbal, No obese, No other, No well developed Psych: anxiety, depression, No confusion, No nl mood/affect, No no complaints, No other, No suicidal Head: atraumatic, No hematomas, No lacerations, No normocephalic, No other Eyes: EOMI, PERRL, nl conjunctiva, No fundi, disc, No icteric, No nl lids, No nl sclera, No other ENMT: nl nasal mucosa & septum, No intubated, No mucosa pink and moist, No nl external ears & nose, No nl lips & teeth, No other, No tympanic membranes Neck: bruits, jvd, nuchal rigidity, supple, No masses, No non-tender, No other, No thyromegaly Respiratory: congested cough, intercostal retraction, No clear to auscultation, No crackles/rales, No diminished breath sounds, No labored breathing, No normal air movement, No other, No respirations, No tactile fremitus, No wheezing Cardiovascular: nl pulses, systolic murmur, No S3, No S4, No bruits, No diastolic murmur, No edema, No gallop, No irregular rhythm, No jugular venous distention (JVD), No murmurs/extra sounds, No other, No regular rate and rhythm, No rub Gastrointestinal: soft, No ascites, No bowel sounds, No distended, No firm, No hepatomegaly, No mass , No nl liver, spleen, No non-tender, No other, No rebound or guarding, No splenomegaly, No surgical scars, No tender Genitourinary - Male: nl penis, nl scrotum Musculoskeletal: joint tenderness, muscle tone, muscle weakness Neurological: nl speech, numbness, other (impaired memory with anxiety.) Skin: nl turgor (decreased.) Results Result Diagram: 04/11/16 0611 04/11/16 0611 Results 24 hrs Laboratory Tests Test 04/11/16 06:11 04/11/16 06:23 Anion Gap 16 Basophils # 0.0 Basophils % 0.4 Blood Morphology Comment Blood Urea Nitrogen 58 H Calcium Level 8.2 L Carbon Dioxide Level 25 Chloride Level 102 Creatinine 7.45 H Eosinophils # 0.1 Eosinophils % 1.0 Glucose Level 84 Hematocrit 25.1 L Hemoglobin 8.3 L Iron Level 18 L Lymphocytes # 1.5 Lymphocytes % 14.4 L Mean Corpuscular Hemoglobin 29.7 Mean Corpuscular Hemoglobin Concent 33.2 Mean Corpuscular Volume 89.5 Mean Platelet Volume 6.4 L Monocytes # 0.8 Monocytes % 7.9 Neutrophils # 7.9 H Neutrophils % 76.3 Nucleated Red Blood Cells # 0.0 Nucleated Red Blood Cells % 0.0 Percent Iron Saturation 13 L Phosphorus Level 5.9 H Platelet Count 203 Potassium Level 4.1 Red Blood Count 2.80 L Red Cell Distribution Width 17.8 H Sodium Level 139 Total Iron Binding Capacity 140 L White Blood Count 10.3 Ferritin 545.0 H Medications Medications Current Medications Epoetin Jordon (Epogen (Esrd)) 10,000 units MoWeFr@17 SC Last administered on at 17:37; Admin Dose 10,000 UNITS; Start 04/10/16 at 17:00 Clopidogrel Bisulfate (plaVIX) 75 mg DAILY PO Last administered on 04/11/16at 09:16; Admin Dose 75 MG; Start 04/10/16 at 19:30 Febuxostat (Uloric) 40 mg DAILY PO Last administered on 04/11/16at 09:16; Admin Dose 40 MG; Start 04/11/16 at 09:00 Linezolid (Zyvox) 600 mg BID PO Last administered on 04/11/16at 09:17; Admin Dose 600 MG; Start 04/10/16 at 21:00 Minoxidil (Loniten) 10 mg DAILY PO Last administered on 04/11/16at 09:18; Admin Dose 10 MG; Start 04/11/16 at 09:00 Salmeterol Xinafoate/ Fluticasone (Advair 250/50 Diskus) 1 inh BID INH Last administered on 04/11/16at 09:15; Admin Dose 1 INH; Start 04/10/16 at 21:00 Senna (Senokot) 1 tab Q12H PRN PO CONSTIPATION; Start 04/10/16 at 19:30 Tamsulosin HCl (Flomax) 0.4 mg HS PO Last administered on 04/10/16at 22:59; Admin Dose 0.4 MG; Start 04/10/16 at 21:00 Valsartan (Diovan) 320 mg DAILY PO Last administered on 04/11/16at 09:16; Admin Dose 320 MG; Start 04/10/16 at 19:30 Clonidine (Catapres) 0.1 mg Q8 PRN PO SBP > 150; Start 04/10/16 at 19:30 Metoprolol Tartrate (Lopressor) 25 mg BID PO Last administered on 04/11/16at 09 :17; Admin Dose 25 MG; Start 04/11/16 at 09:00 HINA CASTILLO MD Apr 11, 2016 18:37
[2016-04-11] MEDS: TAMSULOSIN (SR) 0.4 MG CAP PO SCH (20:03)
--- NOTE | 2016-04-11 20:08 | RADRPT ---
PROCEDURE: US Lower extremity Arteries. CLINICAL INDICATION: AV fistula evaluation. Pain and swelling. TECHNIQUE: Multiple longitudinal and transverse images of the left upper extremity arterial tree w ere obtained with christy scale and color Doppler imaging. Images were reviewed on a high-resolution [employer] workstation. COMPARISON: No prior studies are available for comparison. FINDINGS: Location VelocityDiameter Prox iaipnfiitcb414 cm/sec6.2 mm Tcfukcni356 cm/sec2.9 mm Prox-mid 486 cm/sec3.1 mm Mid-kegt810 cm/sec5.3 mm Mgavso133 cm/sec6.9 Distal itapxcerqcx625 cm/sec10.0 Elevated blood flow velocities in the proximal fistula anastomoses and throughout the fistula, sugg esting stenosis at the proximal anastomosis. IMPRESSION: 1. Elevated blood flow velocities, suggesting stenosis at the proximal fistula anastomosis. RPTAT: QQ .Arley Pope MD, MD Date Time Electronically viewed and signed by .Arley Pope MD, on 04/11/2016 20:08 .M/
[2016-04-11] MEDS: SOD FERRIC GLUC COMPLX 125 MG in SOD CHLORIDE 0.9% 100 ML IVPB SCH (20:59)
--- NOTE | 2016-04-11 21:26 | CONS ---
Date/Time of Note Date/Time of Note DATE: 04/11/16 TIME: 21:16 Assessment/Plan Assessment/Plan Chief Complaint/Hosp Course 1. ESRD , he had a shortened dialysis treatment today because of abdominal pain that started during dialysis . He has had difficulty with dialysis treatments because of either chest pain or now abdominal pain . I will order dialysis for tomorrow . 2. new femoral dialysis catheter placed today because R internal jugular permacath was dislodged Problems: Consultation Date/Type/Reason Admit Date/Time Apr 09, 2016 at 22:21 Initial Consult Date Type of Consultation: renal 24 HR Interval Summary Free Text/Dictation He had dialysis today with a new R femoral vein catheter , He had abdominal pain during dialysis today and was taken off dialysis early .He did not have chest pain . Exam/Review of Systems Vital Signs Vitals Vital Signs Date Time Temp Pulse Resp B/P Pulse Ox O2 Delivery O2 Flow Rate FiO2 04/11/16 20:43 125 18 97 Nasal Cannula 2.0 04/11/16 20:00 98.5 121/58 04/09/16 21:13 28 Intake and Output 04/10/16 04/10/16 04/11/16 15:00 23:00 07:00 Intake Total 400 ml 120 ml Balance 400 ml 120 ml Exam Constitutional: alert Respiratory: clear to auscultation, normal air movement Cardiovascular: regular rate and rhythm Gastrointestinal: non-tender, soft Musculoskeletal: nl extremities to inspection Results Result Diagram: 04/11/16 0611 04/11/16 0611 Results 24 hrs Laboratory Tests Test 04/11/16 06:11 04/11/16 06:23 Anion Gap 16 Basophils # 0.0 Basophils % 0.4 Blood Morphology Comment Blood Urea Nitrogen 58 H Calcium Level 8.2 L Carbon Dioxide Level 25 Chloride Level 102 Creatinine 7.45 H Eosinophils # 0.1 Eosinophils % 1.0 Glucose Level 84 Hematocrit 25.1 L Hemoglobin 8.3 L Iron Level 18 L Lymphocytes # 1.5 Lymphocytes % 14.4 L Mean Corpuscular Hemoglobin 29.7 Mean Corpuscular Hemoglobin Concent 33.2 Mean Corpuscular Volume 89.5 Mean Platelet Volume 6.4 L Monocytes # 0.8 Monocytes % 7.9 Neutrophils # 7.9 H Neutrophils % 76.3 Nucleated Red Blood Cells # 0.0 Nucleated Red Blood Cells % 0.0 Percent Iron Saturation 13 L Phosphorus Level 5.9 H Platelet Count 203 Potassium Level 4.1 Red Blood Count 2.80 L Red Cell Distribution Width 17.8 H Sodium Level 139 Total Iron Binding Capacity 140 L White Blood Count 10.3 Ferritin 545.0 H Medications Medications Current Medications Epoetin Jordon (Epogen (Esrd)) 10,000 units MoWeFr@17 SC Last administered on at 17:37; Admin Dose 10,000 UNITS; Start 04/10/16 at 17:00 Febuxostat (Uloric) 40 mg DAILY PO Last administered on 04/11/16 09:16; Admin Dose 40 MG; Start 04/11/16 at 09:00 Linezolid (Zyvox) 600 mg BID PO Last administered on 04/11/16 20:03; Admin Dose 600 MG; Start 04/10/16 at 21:00 Minoxidil (Loniten) 10 mg DAILY PO Last administered on 04/11/16at 09:18; Admin Dose 10 MG; Start 04/11/16 at 09:00 Salmeterol Xinafoate/ Fluticasone (Advair 250/50 Diskus) 1 inh BID INH Last administered on 04/11/16 20:03; Admin Dose 1 INH; Start 04/10/16 at 21:00 Senna (Senokot) 1 tab Q12H PRN PO CONSTIPATION; Start 04/10/16 at 19:30 Tamsulosin HCl (Flomax) 0.4 mg HS PO Last administered on 04/11/16at 20:03; Admin Dose 0.4 MG; Start 04/10/16 at 21:00 Valsartan (Diovan) 320 mg DAILY PO Last administered on 04/11/16at 09:16; Admin Dose 320 MG; Start 04/10/16 at 19:30 Clonidine (Catapres) 0.1 mg Q8 PRN PO SBP > 150; Start 04/10/16 at 19:30 Metoprolol Tartrate 25 mg 25 mg BID PO Last administered on 04/11/16 09:17; Admin Dose 25 MG; Start 04/11/16 at 09:00 Ferric Sodium Gluconate Complex/ Sodium Chloride (Ferrlecit/NS) 110 ml @ 100 mls/hr Q24H IVPB Last administered on 04/11/16at 20:59; Admin Dose 100 MLS/HR; Start 04/11/16 at 21:00; Stop 04/13/16 at 22:05 CHANTELL HICKMAN MD Apr 11, 2016 21:26
[2016-04-12] VITALS (19 sets, daily range): BP systolic 80–139; BP diastolic 43–75; PULSE 81–125; RESP 15–18
[2016-04-12 07:02] LABS: BASOPHILS % 0.4 % (0.0-2.0); EOSINOPHILS # 0.1 10^3/ul (0.0-0.5); EOSINOPHILS % 1.5 % (0.0-7.0); HEMATOCRIT 25.3 % (42.0-52.0); HEMOGLOBIN 8.4 g/dl (14.0-18.0); LYMPHOCYTES # 1.7 10^3/ul (0.8-2.9); LYMPHOCYTES % 18.6 % (15.0-51.0); MEAN CORPUSCULAR HEMOGLOBIN 30.1 pg (29.0-33.0); MEAN CORPUSCULAR HGB CONC 33.4 g/dl (32.0-37.0); MEAN CORPUSCULAR VOLUME 90.1 fl (82.0-101.0); MEAN PLATELET VOLUME 6.4 fl (7.4-10.4); MONOCYTE # 0.8 10^3/ul (0.3-0.9); MONOCYTES % 8.4 % (0.0-11.0); NEUTROPHIL # 6.6 10^3/ul (1.6-7.5); NEUTROPHILS % 71.1 % (39.0-77.0); PLATELET COUNT 195 10^3/UL (140-440); RED BLOOD COUNT 2.81 10^6/ul (4.70-6.10); RED CELL DISTRIBUTION WIDTH 18.1 % (11.5-14.5); UNCORRECTED WBC 9.2 10^3/ul (4.8-10.8); WHITE BLOOD COUNT 9.2 10^3/ul (4.8-10.8)
[2016-04-12 07:21] LABS: CONDITION 1; LH ANALYZER COMMENTS 1
[2016-04-12 07:26] LABS: ALBUMIN 2.6 g/dl (3.3-4.9); POTASSIUM 3.9 mmol/L (3.5-5.1)
[2016-04-12 07:28] LABS: CREATININE 6.71 mg/dl (0.61-1.24)
[2016-04-12 07:29] LABS: ALBUMIN/GLOBULIN RATIO 0.72; CALCIUM 8.2 mg/dl (8.4-10.2); TOTAL PROTEIN 6.2 g/dl (6.1-8.1)
[2016-04-12 07:30] LABS: MAGNESIUM 1.8 mg/dl (1.7-2.5)
[2016-04-12] MEDS: LEVALBUTEROL (NEB) 0.63 MG/3 ML AMP HHN SCH ×3 (07:54→20:56)
[2016-04-12] MEDS: MINOXIDIL 10 MG TAB PO SCH ×2 (09:00→09:40)
[2016-04-12] MEDS: VALSARTAN 160 MG TAB PO SCH ×2 (09:00→09:41)
[2016-04-12 09:24] LABS: FOLATE 13.7 ng/ml (2.8-20.0)
[2016-04-12] MEDS: SALMETEROL/FLUTICASONE 250/50 INHA INH SCH ×2 (09:39→20:26)
[2016-04-12] MEDS: ZYVOX 600 MG TAB PO SCH ×2 (09:40→20:25)
[2016-04-12] MEDS: METOPROLOL 25 MG TAB PO SCH ×3 (09:40→21:00)
[2016-04-12] MEDS: FEBUXOSTAT 40 MG TABLET PO SCH (09:40)
--- NOTE | 2016-04-12 11:52 | PN ---
Date/Time of Note Date/Time of Note DATE: 04/12/16 TIME: 11:49 Assessment/Plan Lines/Catheters IV Catheter Type (from [facility]): DIALYSIS CATH Kim in Place (from [facility]): No Assessment/Plan Chief Complaint/Hosp Course -End-stage renal disease: It seems that the patient's right chest wall catheter has dislodged and he required urgent dialysis, a S/P Emergent right groin common femoral vein dialysis catheter placement -Left upper extremity ultrasound demonstrates some maturation and neointimal hyperplasia. Will schedule for fistulogram when more medically optimized -At the moment, we will hold off on scheduling him for perm catheter placement, as he may be able to use his left upper extremity fistula. -Optimize vascular status (BP meds, diet, nutrition, exercise, sugar control, antiplatelet). -Discussed findings with plan and management with the patient and he understand , with a certified oil sales and service rep. -Thank you for allowing us to partake in the care of your patient. Please call with any questions. Problems: Subjective 24 Hr Interval Summary no new vascular events overnight. Right Mat was used for dialysis Exam/Review of Systems Vital Signs Vitals Vital Signs Date Time Temp Pulse Resp B/P Pulse Ox O2 Delivery O2 Flow Rate FiO2 04/12/16 10:20 Nasal Cannula 2.0 04/12/16 08:19 122 04/12/16 08:12 97.7 18 110/56 96 04/09/16 21:13 28 Intake and Output 04/11/16 04/11/16 04/12/16 15:00 23:00 07:00 Intake Total 120 ml 1090 ml 500 ml Output Total 1200 ml Balance 120 ml -110 ml 500 ml Exam Free Text/Dictation GENERAL: Alert and oriented x3, no apparent distress. PULMONARY: Coarse breath sounds bilaterally CARDIOVASCULAR: S1, S2 present. ABDOMEN: Soft, nontender, nondistended. Bowel sounds positive. Truncal obesity. LEFT UPPER EXTREMITY: Palpable brachial pulse. Motor and sensory intact. Cap refill 2 to 3 seconds. Surgical scar well healed. Brachiobasilic fistula with bruit and thrill present. Results Result Diagram: 04/12/16 0544 04/12/16 0540 TAHIR HAMILTON MD Apr 12, 2016 11:52
[2016-04-12] MEDS: SOD FERRIC GLUC COMPLX 125 MG in SOD CHLORIDE 0.9% 100 ML IVPB SCH (20:25)
[2016-04-12] MEDS: TAMSULOSIN (SR) 0.4 MG CAP PO SCH (20:25)
--- NOTE | 2016-04-12 22:17 | CONS ---
Date/Time of Note Date/Time of Note DATE: 04/12/16 TIME: 22:08 Assessment/Plan Assessment/Plan Chief Complaint/Hosp Course 1. ESRD , he had a shortened dialysis treatment again today because he says that he had hypotension. The dialysis nurse says that he just wanted to be taken off. She did not say that he was hypotensive. . He has had difficulty with dialysis treatments because of either chest pain , now abdominal pain or hypotension. I will order dialysis for tomorrow . 2. new femoral dialysis catheter placed yesterday because R internal jugular permacath was dislodged . He has a L upper arm AV fistula which is not ready to be used according to the vascular surgeon . 3. I ordered a chest x-ray for tomorrow. I am concerned that he is getting fluid overloaded because of having shortened dialysis treatments. Problems: Consultation Date/Type/Reason Admit Date/Time Apr 09, 2016 at 22:21 Type of Consultation: renal 24 HR Interval Summary Free Text/Dictation He had 2 hours of dialysis today and 500 cc of fluid removed . He refused to have the full dialysis treatment today because he says that he developed hypotension during treatment. The dialysis nurse did not tell me that he had hypotension. She said that he just wanted to be taken off dialysis. Exam/Review of Systems Vital Signs Vitals Vital Signs Date Time Temp Pulse Resp B/P Pulse Ox O2 Delivery O2 Flow Rate FiO2 04/12/16 21:00 100 6.0 04/12/16 20:56 120 20 Nasal Cannula 04/12/16 16:00 98.6 121/57 04/09/16 21:13 28 Intake and Output 04/11/16 04/11/16 04/12/16 15:00 23:00 07:00 Intake Total 120 ml 1090 ml 500 ml Output Total 1200 ml Balance 120 ml -110 ml 500 ml Exam Constitutional: alert, oriented Respiratory: crackles/rales Cardiovascular: murmurs/extra sounds, regular rate and rhythm Gastrointestinal: soft Musculoskeletal: nl extremities to inspection Results Result Diagram: 04/12/16 0544 04/12/16 0540 Results 24 hrs Laboratory Tests Test 04/12/16 05:40 04/12/16 05:44 Alanine Aminotransferase (ALT/SGPT) 24 Albumin 2.6 L Albumin/Globulin Ratio 0.72 Alkaline Phosphatase 67 Anion Gap 15 Aspartate Amino Transf (AST/SGOT) 12 L Blood Urea Nitrogen 46 #H Calcium Level 8.2 L Carbon Dioxide Level 26 Chloride Level 101 Creatinine 6.71 H Direct Bilirubin 0.00 Folate 13.7 Globulin 3.60 H Glucose Level 88 Indirect Bilirubin 0.0 Magnesium Level 1.8 Potassium Level 3.9 Sodium Level 138 Total Bilirubin 0.0 L Total Protein 6.2 Vitamin B12 Level 475 Basophils # 0.0 Basophils % 0.4 Blood Morphology Comment Eosinophils # 0.1 Eosinophils % 1.5 Hematocrit 25.3 L Hemoglobin 8.4 L Lymphocytes # 1.7 Lymphocytes % 18.6 Mean Corpuscular Hemoglobin 30.1 Mean Corpuscular Hemoglobin Concent 33.4 Mean Corpuscular Volume 90.1 Mean Platelet Volume 6.4 L Monocytes # 0.8 Monocytes % 8.4 Neutrophils # 6.6 Neutrophils % 71.1 Nucleated Red Blood Cells # 0.0 Nucleated Red Blood Cells % 0.0 Platelet Count 195 Red Blood Count 2.81 L Red Cell Distribution Width 18.1 H White Blood Count 9.2 Medications Medications Current Medications Epoetin Jordon (Epogen (Esrd)) 10,000 units MoWeFr@17 SC Last administered on at 17:37; Admin Dose 10,000 UNITS; Start 04/10/16 at 17:00 Febuxostat (Uloric) 40 mg DAILY PO Last administered on 04/12/16 09:40; Admin Dose 40 MG; Start 04/11/16 at 09:00 Linezolid (Zyvox) 600 mg BID PO Last administered on 04/12/16 20:25; Admin Dose 600 MG; Start 04/10/16 at 21:00 Minoxidil (Loniten) 10 mg DAILY PO Last administered on 04/11/16at 09:18; Admin Dose 10 MG; Start 04/11/16 at 09:00 Salmeterol Xinafoate/ Fluticasone (Advair 250/50 Diskus) 1 inh BID INH Last administered on 04/12/16 09:39; Admin Dose 1 INH; Start 04/10/16 at 21:00 Senna (Senokot) 1 tab Q12H PRN PO CONSTIPATION; Start 04/10/16 at 19:30 Tamsulosin HCl (Flomax) 0.4 mg HS PO Last administered on 04/12/16 20:25; Admin Dose 0.4 MG; Start 04/10/16 at 21:00 Valsartan (Diovan) 320 mg DAILY PO Last administered on 04/11/16at 09:16; Admin Dose 320 MG; Start 04/10/16 at 19:30 Clonidine (Catapres) 0.1 mg Q8 PRN PO SBP > 150; Start 04/10/16 at 19:30 Metoprolol Tartrate 25 mg 25 mg BID PO Last administered on 04/12/16 20:26; Admin Dose 25 MG; Start 04/11/16 at 09:00 Ferric Sodium Gluconate Complex/ Sodium Chloride (Ferrlecit/NS) 110 ml @ 100 mls/hr Q24H IVPB Last administered on 04/12/16 20:25; Admin Dose 100 MLS/HR; Start 04/11/16 at 21:00; Stop 04/13/16 at 22:05 CHANTELL HICKMAN MD Apr 12, 2016 22:17
[2016-04-13] VITALS (17 sets, daily range): BP systolic 97–189; BP diastolic 53–86; PULSE 97–134; RESP 20–22
[2016-04-13] MEDS: SALMETEROL/FLUTICASONE 250/50 INHA INH SCH ×2 (08:21→21:00)
[2016-04-13] MEDS: ZYVOX 600 MG TAB PO SCH ×2 (08:21→21:35)
[2016-04-13] MEDS: FEBUXOSTAT 40 MG TABLET PO SCH (08:21)
[2016-04-13] MEDS: METOPROLOL 25 MG TAB PO SCH ×2 (08:21→21:34)
[2016-04-13] MEDS: VALSARTAN 160 MG TAB PO SCH (08:22)
[2016-04-13] MEDS: MINOXIDIL 10 MG TAB PO SCH (08:22)
--- NOTE | 2016-04-13 08:22 | RADRPT ---
PROCEDURE: XR Chest. CLINICAL INDICATION: Shortness of breath. TECHNIQUE: Single frontal view. COMPARISON: 04/10/2016. FINDINGS: Bilateral patchy air space disease consistent with bilateral pneumonia or pulmonary edema is unchang ed. The heart is enlarged. There is calcification in the aorta consistent with atherosclerosis. There is no pleural effusion. There is no pneumothorax. IMPRESSION: 1. No change from 04/10/2016. RPTAT: QQ .Kal Bowens MD, MD Date Time Electronically viewed and signed by .Kal Bwoens MD, MD on 04/13/2016 08:21 .R/
[2016-04-13] MEDS: LEVALBUTEROL (NEB) 0.63 MG/3 ML AMP HHN SCH ×3 (08:57→19:57)
--- NOTE | 2016-04-13 10:33 | CONS ---
DATE OF ADMISSION: 04/09/2016 DATE OF CONSULTATION: TYPE OF CONSULTATION: Nephrology. HISTORY OF PRESENT ILLNESS: The patient is lying in bed in no acute distress. He states, however he just in general does not feel well. He denies any chest pain or shortness of breath, however. PHYSICAL EXAMINATION: VITAL SIGNS: He is afebrile, blood pressure 150/70, heart rate 88 and regular, respirations are 12 and unlabored, O2 saturation is 97% on 3 liters. SKIN: Warm, well perfused. HEAD: Normocephalic, atraumatic. EYES: Pupils appear round and reactive. Extraocular movements are full. Sclerae are anicteric. PHARYNX: No lesions. NECK: JVP not distended. LUNGS: Clear. HEART: S1, S2. ABDOMEN: Soft. EXTREMITIES: Catheter in the right groin. LABORATORY DATA: There are no new laboratories for today. PROBLEM LIST: 1. End-stage renal disease, frequent shortened dialysis treatments, for planned dialysis today. 2. Access issues, now has a new femoral catheter in the right groin as his prior IJ Perm-A-Cath was dislodged. RECOMMENDATIONS: 1. Dialysis today. 2. Vascular followup. Dictated By: ELENO MIR MD, MM/CAMILO Conf#: [id number] DID#: [id number]
--- NOTE | 2016-04-13 10:58 | CONS ---
Date/Time of Note Date/Time of Note DATE: 04/13/16 TIME: 10:58 Consultation Date/Type/Reason Admit Date/Time Apr 09, 2016 at 22:21 Initial Consult Date Type of Consultation: hemeonc Exam/Review of Systems Vital Signs Vitals Vital Signs Date Time Temp Pulse Resp B/P Pulse Ox O2 Delivery O2 Flow Rate FiO2 04/13/16 08:57 107 18 97 Nasal Cannula 3.0 04/13/16 08:14 98.4 149/67 04/09/16 21:13 28 Intake and Output 04/12/16 04/12/16 04/13/16 15:00 23:00 07:00 Intake Total 1510 ml 100 ml Output Total 1700 ml Balance -190 ml 100 ml Results Result Diagram: 04/12/16 0544 04/12/16 0540 Medications Medications Current Medications Epoetin Jordon (Epogen (Esrd)) 10,000 units MoWeFr@17 SC Last administered on at 17:37; Admin Dose 10,000 UNITS; Start 04/10/16 at 17:00 Febuxostat (Uloric) 40 mg DAILY PO Last administered on 04/13/16 08:21; Admin Dose 40 MG; Start 04/11/16 at 09:00 Linezolid (Zyvox) 600 mg BID PO Last administered on 04/13/16 08:21; Admin Dose 600 MG; Start 04/10/16 at 21:00 Minoxidil (Loniten) 10 mg DAILY PO Last administered on 04/11/16at 09:18; Admin Dose 10 MG; Start 04/11/16 at 09:00 Salmeterol Xinafoate/ Fluticasone (Advair 250/50 Diskus) 1 inh BID INH Last administered on 04/13/16 08:21; Admin Dose 1 INH; Start 04/10/16 at 21:00 Senna (Senokot) 1 tab Q12H PRN PO CONSTIPATION; Start 04/10/16 at 19:30 Tamsulosin HCl (Flomax) 0.4 mg HS PO Last administered on 04/12/16 20:25; Admin Dose 0.4 MG; Start 04/10/16 at 21:00 Valsartan (Diovan) 320 mg DAILY PO Last administered on 12/31/16at 09:16; Admin Dose 320 MG; Start 04/10/16 at 19:30 Clonidine (Catapres) 0.1 mg Q8 PRN PO SBP > 150; Start 04/10/16 at 19:30 Metoprolol Tartrate 25 mg 25 mg BID PO Last administered on 04/13/16 08:21; Admin Dose 25 MG; Start 04/11/16 at 09:00 Ferric Sodium Gluconate Complex/ Sodium Chloride (Ferrlecit/NS) 110 ml @ 100 mls/hr Q24H IVPB Last administered on 04/12/16 20:25; Admin Dose 100 MLS/HR; Start 04/11/16 at 21:00; Stop 04/13/16 at 22:05 ANDRE SMITH MD Apr 13, 2016 10:58
--- NOTE | 2016-04-13 10:58 | CONS ---
Date/Time of Note Date/Time of Note DATE: 04/13/16 TIME: 10:57 Consultation Date/Type/Reason Admit Date/Time Apr 09, 2016 at 22:21 Constitutional: disoriented, poor po, requiring O2, No chills, No diaphoresis, No febrile, No improved, No no complaints, No other, No requiring IVF Eyes: visual change, No discharge, No no complaints, No other, No pain, No redness ENT: congestion, dysphagia, sore throat, No bleeding, No discharge, No no complaints, No other, No pain Respiratory: cough, pain, pleuritic pain, No no complaints, No other, No shortness of breath, No sputum, No wheezing Cardiovascular: chest pain, lightheadedness, paroxysmal nocturnal dyspnea, No edema, No no complaints, No orthopenea, No other, No palpitations Gastrointestinal: constipation, flatus, passing stool, No blood, No decreased appetite, No diarrhea, No nausea, No no complaints, No other, No pain, No vomiting Genitourinary: flank pain, No bleeding, No discharge, No dysuria, No hematuria, No no complaints, No other Musculoskeletal: back pain, bone/joint pain, No neck pain, No no complaints, No other, No restricted range of motion, No swelling Skin: pruritis, No bruising, No erythema, No laceration, No no complaints, No other, No rash , No skin lesions Neurologic: dizziness, headache, No confusion, No focal-weakness, No no complaints, No other, No seizure, No syncope Endocrine: No dry skin, No no complaints, No other, No polydypsia, No polyuria , No temp intolerance Lymphatic: No adenopathy, No lymphadema, No no complaints, No other, No tender nodes Psychological: anxiety, depression, No confusion, No nl mood/affect, No no complaints, No other, No suicidal Immunologic: pruritis, No immunodeficiency, No no complaints, No other, No rhinitis, No urticaria Past Medical History Medical History: angina, colitis, congestive heart failure, coronary artery disease, diabetes, diverticulitis, GERD, GI bleed, high cholesterol, hypertension, hypothyroid, renal disease, urinary tract infection Past Surgical History Past Surgical Hx: angioplasty (S/p right HD cathter insertion and s/p ; eft forearm dialysis AV shunt vs graft placement.), coronary bypass surgery, endoscopy, other Social History Alcohol Use: rarely Smoking Status: Former smoker Drug Use: none Exam/Review of Systems Vital Signs Vitals Vital Signs Date Time Temp Pulse Resp B/P Pulse Ox O2 Delivery O2 Flow Rate FiO2 04/13/16 08:57 107 18 97 Nasal Cannula 3.0 04/13/16 08:14 98.4 149/67 04/09/16 21:13 28 Intake and Output 04/12/16 04/12/16 04/13/16 15:00 23:00 07:00 Intake Total 1510 ml 100 ml Output Total 1700 ml Balance -190 ml 100 ml Results Result Diagram: 04/12/16 0544 04/12/16 0540 Medications Medications Current Medications Epoetin Jordon (Epogen (Esrd)) 10,000 units MoWeFr@17 SC Last administered on at 17:37; Admin Dose 10,000 UNITS; Start 04/10/16 at 17:00 Febuxostat (Uloric) 40 mg DAILY PO Last administered on 04/13/16 08:21; Admin Dose 40 MG; Start 04/11/16 at 09:00 Linezolid (Zyvox) 600 mg BID PO Last administered on 04/13/16 08:21; Admin Dose 600 MG; Start 04/10/16 at 21:00 Minoxidil (Loniten) 10 mg DAILY PO Last administered on 04/11/16at 09:18; Admin Dose 10 MG; Start 04/11/16 at 09:00 Salmeterol Xinafoate/ Fluticasone (Advair 250/50 Diskus) 1 inh BID INH Last administered on 04/13/16 08:21; Admin Dose 1 INH; Start 04/10/16 at 21:00 Senna (Senokot) 1 tab Q12H PRN PO CONSTIPATION; Start 04/10/16 at 19:30 Tamsulosin HCl (Flomax) 0.4 mg HS PO Last administered on 04/12/16 20:25; Admin Dose 0.4 MG; Start 04/10/16 at 21:00 Valsartan (Diovan) 320 mg DAILY PO Last administered on 04/11/16 09:16; Admin Dose 320 MG; Start 04/10/16 at 19:30 Clonidine (Catapres) 0.1 mg Q8 PRN PO SBP > 150; Start 04/10/16 at 19:30 Metoprolol Tartrate 25 mg 25 mg BID PO Last administered on 04/13/16 08:21; Admin Dose 25 MG; Start 04/11/16 at 09:00 Ferric Sodium Gluconate Complex/ Sodium Chloride (Ferrlecit/NS) 110 ml @ 100 mls/hr Q24H IVPB Last administered on 04/12/16 20:25; Admin Dose 100 MLS/HR; Start 04/11/16 at 21:00; Stop 04/13/16 at 22:05 ANDRE SMITH MD Apr 13, 2016 10:58
[2016-04-13] MEDS: EPOETIN 10000 UNITS/1 ML INJ (ESRD) SC SCH (17:27)
[2016-04-13] MEDS ORDERED: METHYLPREDNISOLONE 125 MG INJ IV ONE (17:30)
--- NOTE | 2016-04-13 17:40 | PN ---
Date/Time of Note Date/Time of Note DATE: 04/13/16 TIME: 17:36 Assessment/Plan VTE Prophylaxis VTE Prophylaxis Intervention: ambulation VTE Contraindication Reason: peripheral vascular disease Lines/Catheters IV Catheter Type (from Nrsg): DIALYSIS CATHETER Central line still needed: No Urinary Cath still in place: No Assessment/Plan Chief Complaint/Hosp Course 1. Hypotension after clonidine use before dialysis now improved(after fluid challenge. 2. Episode of losing awareness while having decreased BP to 70/30mm HG ; before and during dialysis. 3. End-stage renal disease. 4. Tachycardia- persists 5. Diabetes type 2. 6. Osteoporosis. 7. Osteoarthritis. 8. Anemia of chronic disease. 9. Status post multiple units of packed red blood cell transfusions. 10. Weight loss. 11. Hypertension. 12. Memory impairment. 13. Major depression. 14. Back pain. 15. Benign prostatic hypertrophy. 16. S/P left forearm a/v shunt placement for dialysis, with good drill on palpation.. 17. S/P right Jugular vein cannulation for dialysis 18. Hypoxemia 19. Anxiety-depression 20. Excessive thirst. 21.COPD persists, no exacerbation. 22.Leukocytosis- improved . 23. Weight loss- progressive 24.Poor anger control with dissatisfaction and attitude of blaming everybody during anger episodes without awareness of wrongdoing. 25.Hypothyroidism 26.Chronic uti 27.S/P BIPAP us for hypercapnia now Pc02 47 and PH 7.32. 28.Severe weakness and fatigue, progressively worse. Patient Condition: Fair Hx of Present Illness 2 days HX of worsening of sob with chills. Got worse mainly after the dialysis and paramedics called after the severe sob. Hospital Course IMPRESSION AND PLAN: 1. Transient hypoxemia likely secondary to volume overload. 2. End-stage renal failure. 3. Wide complex tachycardia on hemodialysis, concerning for underlying coronary artery disease. Patient will require: 1. Cardiology evaluation and recommendations, possible stress test and angiogram when more stable. 2. Continue hemodialysis as tolerated. 3. Supplemental O2 as needed. 4. DVT and GI prophylaxis. 1. Coronary artery calcification. 2. Unchanged cardiomegaly, small pericardial effusion, small bilateral pleural effusions, multifocal bronchiolitis, and emphysema. 3. Benign bilateral renal cysts. 4. Atherosclerosis. 5. Degenerative changes of the spine. Problems: Subjective 24 Hr Interval Summary Constitutional: disoriented, poor po, requiring O2, No chills, No diaphoresis, No febrile, No improved, No no complaints, No other, No requiring IVF Eyes: visual change, No discharge, No no complaints, No other, No pain, No redness ENT: congestion, dysphagia, No bleeding, No discharge, No no complaints, No other, No pain, No sore throat Respiratory: cough, pain, pleuritic pain, No no complaints, No other, No shortness of breath, No sputum, No wheezing Cardiovascular: chest pain, lightheadedness, paroxysmal nocturnal dyspnea, No edema, No no complaints, No orthopenea, No other, No palpitations Gastrointestinal: constipation, passing stool, No blood, No decreased appetite, No diarrhea, No flatus, No nausea, No no complaints, No other, No pain, No vomiting Genitourinary: flank pain, No bleeding, No discharge, No dysuria, No hematuria, No no complaints, No other Musculoskeletal: back pain, bone/joint pain, No neck pain, No no complaints, No other, No restricted range of motion, No swelling Skin: pruritis, No bruising, No erythema, No laceration, No no complaints, No other, No rash , No skin lesions Neurologic: dizziness, headache, No confusion, No focal-weakness, No no complaints, No other, No seizure, No syncope Lymphatic: No adenopathy, No lymphadema, No no complaints, No other, No tender nodes Psychological: anxiety, depression, No confusion, No nl mood/affect, No no complaints, No other, No suicidal Immunologic: pruritis, No immunodeficiency, No no complaints, No other, No rhinitis, No urticaria Exam/Review of Systems Vital Signs Vitals Vital Signs Date Time Temp Pulse Resp B/P Pulse Ox O2 Delivery O2 Flow Rate FiO2 04/13/16 16:15 117 04/13/16 15:56 97.7 20 163/74 100 04/13/16 14:42 Nasal Cannula 3.0 04/09/16 21:13 28 Intake and Output 04/12/16 04/12/16 04/13/16 15:00 23:00 07:00 Intake Total 1510 ml 100 ml Output Total 1700 ml Balance -190 ml 100 ml Exam Constitutional: frail, oriented, No alert, No distress, No non-verbal, No obese, No other, No well developed Psych: anxiety, depression, No confusion, No nl mood/affect, No no complaints, No other, No suicidal Head: atraumatic, No hematomas, No lacerations, No normocephalic, No other Eyes: EOMI, PERRL, nl conjunctiva, No fundi, disc, No icteric, No nl lids, No nl sclera, No other ENMT: nl nasal mucosa & septum, No intubated, No mucosa pink and moist, No nl external ears & nose, No nl lips & teeth, No other, No tympanic membranes Neck: bruits, jvd, nuchal rigidity, supple, No masses, No non-tender, No other, No thyromegaly Respiratory: congested cough, intercostal retraction, No clear to auscultation, No crackles/rales, No diminished breath sounds, No labored breathing, No normal air movement, No other, No respirations, No tactile fremitus, No wheezing Cardiovascular: nl pulses, systolic murmur, No S3, No S4, No bruits, No diastolic murmur, No edema, No gallop, No irregular rhythm, No jugular venous distention (JVD), No murmurs/extra sounds, No other, No regular rate and rhythm, No rub Gastrointestinal: soft, No ascites, No bowel sounds, No distended, No firm, No hepatomegaly, No mass , No nl liver, spleen, No non-tender, No other, No rebound or guarding, No splenomegaly, No surgical scars, No tender Musculoskeletal: joint tenderness, muscle tone Neurological: nl speech, numbness Results Result Diagram: 04/12/16 0544 04/12/16 0540 Medications Medications Current Medications Epoetin Jordon (Epogen (Esrd)) 10,000 units MoWeFr@17 SC Last administered on 04/13 17:27; Admin Dose 10,000 UNITS; Start 04/10/16 at 17:00 Febuxostat (Uloric) 40 mg DAILY PO Last administered on 04/13/16 08:21; Admin Dose 40 MG; Start 04/11/16 at 09:00 Linezolid (Zyvox) 600 mg BID PO Last administered on 04/13/16 08:21; Admin Dose 600 MG; Start 04/10/16 at 21:00 Minoxidil (Loniten) 10 mg DAILY PO Last administered on 04/11/16at 09:18; Admin Dose 10 MG; Start 04/11/16 at 09:00 Salmeterol Xinafoate/ Fluticasone (Advair 250/50 Diskus) 1 inh BID INH Last administered on 04/13/16 08:21; Admin Dose 1 INH; Start 04/10/16 at 21:00 Senna (Senokot) 1 tab Q12H PRN PO CONSTIPATION; Start 04/10/16 at 19:30 Tamsulosin HCl (Flomax) 0.4 mg HS PO Last administered on 04/12/16 20:25; Admin Dose 0.4 MG; Start 04/10/16 at 21:00 Valsartan (Diovan) 320 mg DAILY PO Last administered on 04/11/16at 09:16; Admin Dose 320 MG; Start 04/10/16 at 19:30 Clonidine (Catapres) 0.1 mg Q8 PRN PO SBP > 150; Start 04/10/16 at 19:30 Metoprolol Tartrate 25 mg 25 mg BID PO Last administered on 04/13/16 08:21; Admin Dose 25 MG; Start 04/11/16 at 09:00 Ferric Sodium Gluconate Complex/ Sodium Chloride (Ferrlecit/NS) 110 ml @ 100 mls/hr Q24H IVPB Last administered on 04/12/16 20:25; Admin Dose 100 MLS/HR; Start 04/11/16 at 21:00; Stop 04/13/16 at 22:05 Methylprednisolone Sodium Succinate (Solu-Medrol) 60 mg ONCE ONCE IV ; Start at 17:30; Stop 04/13/16 at 17:31; Status UNV Methylprednisolone Sodium Succinate (Solu-Medrol) 30 mg ONCE ONCE IV ; Start at 17:30; Stop 04/14/16 at 17:31; Status UNV Methylprednisolone Sodium Succinate (Solu-Medrol) 15 mg ONCE ONCE IV ; Start at 17:30; Stop 04/15/16 at 17:31; Status UNV HINA CASTILLO MD Apr 13, 2016 17:40
[2016-04-13] MEDS ORDERED: HEPARIN 1000 UNITS/ML 10 ML INJ CATHETER ONE (21:00)
[2016-04-13] MEDS: TAMSULOSIN (SR) 0.4 MG CAP PO SCH (21:34)
[2016-04-13] MEDS: SOD FERRIC GLUC COMPLX 125 MG in SOD CHLORIDE 0.9% 100 ML IVPB SCH (23:12)
[2016-04-14] VITALS (11 sets, daily range): BP systolic 116–154; BP diastolic 56–69; PULSE 60–129; RESP 17–20
[2016-04-14 07:07] LABS: BASOPHILS % 0.1 % (0.0-2.0); HEMOGLOBIN 9.6 g/dl (14.0-18.0); LYMPHOCYTES # 0.5 10^3/ul (0.8-2.9); LYMPHOCYTES % 8.9 % (15.0-51.0); MEAN CORPUSCULAR HEMOGLOBIN 29.7 pg (29.0-33.0); MEAN CORPUSCULAR HGB CONC 33.1 g/dl (32.0-37.0); MEAN CORPUSCULAR VOLUME 89.8 fl (82.0-101.0); MEAN PLATELET VOLUME 6.4 fl (7.4-10.4); MONOCYTE # 0.1 10^3/ul (0.3-0.9); MONOCYTES % 1.2 % (0.0-11.0); NEUTROPHIL # 5.4 10^3/ul (1.6-7.5); NEUTROPHILS % 89.8 % (39.0-77.0); PLATELET COUNT 245 10^3/UL (140-440); RED BLOOD COUNT 3.22 10^6/ul (4.70-6.10); RED CELL DISTRIBUTION WIDTH 19.2 % (11.5-14.5)
[2016-04-14 07:09] LABS: CONDITION 1; LH ANALYZER COMMENTS 1
[2016-04-14 07:30] LABS: ALBUMIN 3.2 g/dl (3.3-4.9)
[2016-04-14 07:31] LABS: POTASSIUM 4.7 mmol/L (3.5-5.1)
[2016-04-14 07:33] LABS: ALBUMIN/GLOBULIN RATIO 0.8; BILIRUBIN,INDIRECT 0.1 mg/dl (0-1.1); BILIRUBIN,TOTAL 0.1 mg/dl (0.2-1.3); CREATININE 5.86 mg/dl (0.61-1.24); TOTAL PROTEIN 7.2 g/dl (6.1-8.1)
[2016-04-14 07:34] LABS: CALCIUM 8.8 mg/dl (8.4-10.2)
[2016-04-14] MEDS: SALMETEROL/FLUTICASONE 250/50 INHA INH SCH ×2 (08:13→20:42)
[2016-04-14] MEDS: ZYVOX 600 MG TAB PO SCH ×2 (08:13→20:43)
[2016-04-14] MEDS: FEBUXOSTAT 40 MG TABLET PO SCH (08:14)
[2016-04-14] MEDS: VALSARTAN 160 MG TAB PO SCH (08:14)
[2016-04-14] MEDS: METOPROLOL 25 MG TAB PO SCH ×2 (08:15→20:43)
[2016-04-14] MEDS: MINOXIDIL 10 MG TAB PO SCH (08:15)
--- NOTE | 2016-04-14 08:35 | CONS ---
Date/Time of Note Date/Time of Note DATE: 04/14/16 TIME: 08:34 Assessment/Plan Assessment/Plan Additional Assessment/Plan 1. CKD on HD, with next HD tomm 2. HBP, controlled 3. Anemia sec to CKD 4. COPD and interstitial lung dz, stable 5. Antibiotics noted, ?? dc 6. DC tomm per IM if stabe. Consultation Date/Type/Reason Admit Date/Time Apr 09, 2016 at 22:21 Initial Consult Date Type of Consultation: hemeon Detailed Summary Respiratory: No shortness of breath (is unchanged and mild) Cardiovascular: No chest pain Gastrointestinal: No no complaints Genitourinary: no complaints Exam/Review of Systems Vital Signs Vitals Vital Signs Date Time Temp Pulse Resp B/P Pulse Ox O2 Delivery O2 Flow Rate FiO2 04/14/16 08:27 109 04/14/16 07:52 98.4 18 149/69 99 04/13/16 20:08 3.0 04/13/16 20:00 Nasal Cannula Intake and Output 04/13/16 04/13/16 04/14/16 15:00 23:00 07:00 Intake Total 1280 ml 350 ml Output Total 3500 ml Balance -2220 ml 350 ml Exam Neck: No jvd Respiratory: clear to auscultation Cardiovascular: regular rate and rhythm Gastrointestinal: soft Extremities: No edema (and no calf tend) Results Result Diagram: 04/14/16 0633 04/14/16 0635 Results 24 hrs Laboratory Tests Test 04/14/16 06:33 04/14/16 06:35 Basophils # 0.0 Basophils % 0.1 Blood Morphology Comment Eosinophils # 0.0 Eosinophils % 0.0 Hematocrit 29.0 L Hemoglobin 9.6 L Lymphocytes # 0.5 L Lymphocytes % 8.9 L Mean Corpuscular Hemoglobin 29.7 Mean Corpuscular Hemoglobin Concent 33.1 Mean Corpuscular Volume 89.8 Mean Platelet Volume 6.4 L Monocytes # 0.1 L Monocytes % 1.2 Neutrophils # 5.4 Neutrophils % 89.8 H Nucleated Red Blood Cells # 0.0 Nucleated Red Blood Cells % 0.0 Platelet Count 245 # Red Blood Count 3.22 L Red Cell Distribution Width 19.2 H White Blood Count 6.0 # Alanine Aminotransferase (ALT/SGPT) 23 Albumin 3.2 L Albumin/Globulin Ratio 0.80 Alkaline Phosphatase 75 Anion Gap 20 H Aspartate Amino Transf (AST/SGOT) 15 Blood Urea Nitrogen 40 H Calcium Level 8.8 Carbon Dioxide Level 24 Chloride Level 97 Creatinine 5.86 H Direct Bilirubin 0.00 Globulin 4.00 H Glucose Level 145 Indirect Bilirubin 0.1 Potassium Level 4.7 Sodium Level 136 Total Bilirubin 0.1 L Total Protein 7.2 Medications Medications Current Medications Epoetin Jordon (Epogen (Esrd)) 10,000 units MoWeFr@17 SC Last administered on 04/13 17:27; Admin Dose 10,000 UNITS; Start 04/10/16 at 17:00 Febuxostat (Uloric) 40 mg DAILY PO Last administered on 04/14/16 08:14; Admin Dose 40 MG; Start 04/11/16 at 09:00 Linezolid (Zyvox) 600 mg BID PO Last administered on 04/14/16 08:13; Admin Dose 600 MG; Start 04/10/16 at 21:00 Minoxidil (Loniten) 10 mg DAILY PO Last administered on 04/14/16 08:15; Admin Dose 10 MG; Start 04/11/16 at 09:00 Salmeterol Xinafoate/ Fluticasone (Advair 250/50 Diskus) 1 inh BID INH Last administered on 04/14/16 08:13; Admin Dose 1 INH; Start 04/10/16 at 21:00 Senna (Senokot) 1 tab Q12H PRN PO CONSTIPATION; Start 04/10/16 at 19:30 Tamsulosin HCl (Flomax) 0.4 mg HS PO Last administered on 04/13/16 21:34; Admin Dose 0.4 MG; Start 04/10/16 at 21:00 Valsartan (Diovan) 320 mg DAILY PO Last administered on 04/14/16 08:14; Admin Dose 320 MG; Start 04/10/16 at 19:30 Clonidine (Catapres) 0.1 mg Q8 PRN PO SBP > 150; Start 04/10/16 at 19:30 Metoprolol Tartrate (Lopressor) 25 mg BID PO Last administered on 04/14/16 08: 15; Admin Dose 25 MG; Start 04/11/16 at 09:00 Methylprednisolone Sodium Succinate (Solu-Medrol) 30 mg ONCE ONCE IV ; Start at 17:30; Stop 04/14/16 at 17:31 Methylprednisolone Sodium Succinate (Solu-Medrol) 15 mg ONCE ONCE IV ; Start at 17:30; Stop 04/15/16 at 17:31 TRUE GTZ MD Apr 14, 2016 08:35
[2016-04-14] MEDS: LEVALBUTEROL (NEB) 0.63 MG/3 ML AMP HHN SCH ×3 (08:49→19:59)
--- NOTE | 2016-04-14 13:55 | PDOCDIS ---
Discharge Instructions CONDITION Patient Condition: Fair HOME CARE INSTRUCTIONS: Special Diet: RENAL ACTIVITY: Activity Restrictions: Slowly Increase Activity Avoid heavy lifting Avoid Heavy Housework No Weight Bearing Bathing Restrictions: Tub Bath HINA CASTILLO MD Apr 14, 2016 13:55
--- NOTE | 2016-04-14 13:56 | DS ---
Date/Time of Note Date/Time of Note DATE: 04/14/16 TIME: 13:55 Discharge Summary Admission/Discharge Info Admit Date/Time Apr 09, 2016 at 22:21 Discharge Date/Time Final Diagnosis 1. Hypotension after clonidine use before dialysis now improved 2. Episode of losing awareness while having decreased BP to 70/30mm HG ; before and during dialysis. 3. End-stage renal disease. 4. Tachycardia- persists 5. Diabetes type 2. 6. Osteoporosis. 7. Osteoarthritis. 8. Anemia of chronic disease. 9. Status post multiple units of packed red blood cell transfusions. 10. Weight loss. 11. Hypertension. 12. Memory impairment. 13. Major depression. 14. Back pain. 15. Benign prostatic hypertrophy. 16. S/P left forearm a/v shunt placement for dialysis, with good drill on palpation. 17. S/P right Jugular vein cannulation for dialysis 18. Hypoxemia 19. Anxiety-depression 20. Excessive thirst. 21.COPD persists, no exacerbation. 22.Leukocytosis- improved . 23. Weight loss- progressive 24.Poor anger control with dissatisfaction and attitude of blaming everybody during anger episodes without awareness of wrongdoing. 25.Hypothyroidism 26.Chronic uti 27.S/P BIPAP us for hypercapnia now Pc02 47 and PH 7.32. 28.Severe weakness and fatigue, progressively worse. Patient Condition: Fair Hospital Course 1. ESRD , he had a shortened dialysis treatment again today because he says that he had hypotension. The dialysis nurse says that he just wanted to be taken off. She did not say that he was hypotensive. . He has had difficulty with dialysis treatments because of either chest pain , now abdominal pain or hypotension. I will order dialysis for tomorrow . 2. new femoral dialysis catheter placed yesterday because R internal jugular permacath was dislodged . He has a L upper arm AV fistula which is not ready to be used according to the vascular surgeon . 3. I ordered a chest x-ray for tomorrow. I am concerned that he is getting fluid overloaded because of having shortened dialysis treatments. Home Meds Active Scripts Linezolid (Linezolid) 600 Mg Tablet, 600 MG PO BID for 10 Days, TAB Prov:HINA CASTILLO MD 04/04/16 Reported Medications Acetaminophen (Mapap) 500 Mg Capsule, 1000 MG PO Q4H Y for PAIN, CAP 01/13/16 Sennosides* (Senna Lax*) 8.6 Mg Tablet, 1 TAB PO Q12H Y for CONSTIPATION, TAB 01/13/16 Levalbuterol* (Xopenex* HFA) 15 Gm Inha, 2 PUFFS INH Q4H Y for WHEEZING AND SOB , INHALER 01/13/16 Vera-3 Acid Ethyl Esters (Lovaza) 1 Gm Capsule, 1 GM PO BID, CAP 01/13/16 Minoxidil* (Lonitin*) 10 Mg Tab, 10 MG PO DAILY, TAB 01/13/16 Clonidine Hcl* (Clonidine Hcl*) 0.1 Mg Tab, 0.1 MG PO BID, TAB 01/13/16 Valsartan* (Diovan*) 320 Mg Tablet, 320 MG PO DAILY, TAB 01/13/16 Salmeterol Xinaf/Fluticasone* (Advair*) 250-50 Diskus Inhaler, 1 INH INHALATION BID, #1 INHALER 11/28/15 Clopidogrel Bisulfate* (Clopidogrel Bisulfate*) 75 Mg Tablet, 75 MG PO DAILY, # 30 TAB 11/28/15 Febuxostat* (Uloric*) 40 Mg Tablet, 40 MG PO DAILY, TAB 11/28/15 Esomeprazole Mag Trihydrate (Nexium) 40 Mg Capsule.dr, 40 MG PO DAILY, #30 CAP 11/28/15 Tamsulosin Hcl* (Tamsulosin Hcl*) 0.4 Mg Cap.er.24h, 0.4 MG PO HS, CAP 11/28/15 Levothyroxine Sodium* (Levothyroxine Sodium*) 125 Mcg Tablet, 125 MCG PO BEFORE BREAKFAST, #30 TAB 11/28/15 Follow-up Plan Discharge if it is ok with . F/U in 5 days. Pending Labs Laboratory Tests Test 04/14/16 06:33 04/14/16 06:35 Basophils # 0.010^3/ul (0.0-0.1) Basophils % 0.1% (0.0-2.0) Blood Morphology Comment Eosinophils # 0.010^3/ul (0.0-0.5) Eosinophils % 0.0% (0.0-7.0) Hematocrit 29.0% (42.0-52.0) Hemoglobin 9.6g/dl (14.0-18.0) Lymphocytes # 0.510^3/ul (0.8-2.9) Lymphocytes % 8.9% (15.0-51.0) Mean Corpuscular Hemoglobin 29.7pg (29.0-33.0) Mean Corpuscular Hemoglobin Concent 33.1g/dl (32.0-37.0) Mean Corpuscular Volume 89.8fl (82.0-101.0) Mean Platelet Volume 6.4fl (7.4-10.4) Monocytes # 0.110^3/ul (0.3-0.9) Monocytes % 1.2% (0.0-11.0) Neutrophils # 5.410^3/ul (1.6-7.5) Neutrophils % 89.8% (39.0-77.0) Nucleated Red Blood Cells # 0.010^3/ul (0.0-0.0) Nucleated Red Blood Cells % 0.0/100WBC (0.0-0.0) Platelet Count 98945^3/UL (140-440) Red Blood Count 3.2210^6/ul (4.70-6.10) Red Cell Distribution Width 19.2% (11.5-14.5) White Blood Count 6.010^3/ul (4.8-10.8) Alanine Aminotransferase (ALT/SGPT) 23IU/L (13-69) Albumin 3.2g/dl (3.3-4.9) Albumin/Globulin Ratio 0.80 Alkaline Phosphatase 75IU/L (42-121) Anion Gap 20 (8-16) Aspartate Amino Transf (AST/SGOT) 15IU/L (15-46) Blood Urea Nitrogen 40mg/dl (7-20) Calcium Level 8.8mg/dl (8.4-10.2) Carbon Dioxide Level 24mmol/L (21-31) Chloride Level 97mmol/L (97-110) Creatinine 5.86mg/dl (0.61-1.24) Direct Bilirubin 0.00mg/dl (0.00-0.20) Globulin 4.00g/dl (1.3-3.2) Glucose Level 145mg/dl (70-220) Indirect Bilirubin 0.1mg/dl (0-1.1) Potassium Level 4.7mmol/L (3.5-5.1) Sodium Level 136mmol/L (135-144) Total Bilirubin 0.1mg/dl (0.2-1.3) Total Protein 7.2g/dl (6.1-8.1) HINA CASTILLO MD Apr 14, 2016 13:55
[2016-04-14] MEDS ORDERED: DILTIAZEM (CD) 120 MG CAP PO ONE (17:00)
[2016-04-14] MEDS ORDERED: METHYLPREDNISOLONE 40 MG INJ IV ONE (17:30)
[2016-04-14] MEDS: TAMSULOSIN (SR) 0.4 MG CAP PO SCH (20:42)
--- NOTE | 2016-04-14 20:56 | CONS ---
Date/Time of Note Date/Time of Note DATE: 04/14/16 TIME: 20:56 Consultation Date/Type/Reason Admit Date/Time Apr 09, 2016 at 22:21 [facility] of Systems Vital Signs Vitals Vital Signs Date Time Temp Pulse Resp B/P Pulse Ox O2 Delivery O2 Flow Rate FiO2 04/14/16 20:00 98 3.0 04/14/16 20:00 122 18 Nasal Cannula 04/14/16 20:00 98.2 154/68 Intake and Output 04/13/16 04/13/16 04/14/16 15:00 23:00 07:00 Intake Total 1280 ml 350 ml Output Total 3500 ml Balance -2220 ml 350 ml Results Result Diagram: 04/14/16 0633 04/14/16 0635 Results 24 hrs Laboratory Tests Test 04/14/16 06:33 04/14/16 06:35 04/14/16 15:36 Basophils # 0.0 Basophils % 0.1 Blood Morphology Comment Eosinophils # 0.0 Eosinophils % 0.0 Hematocrit 29.0 L Hemoglobin 9.6 L Lymphocytes # 0.5 L Lymphocytes % 8.9 L Mean Corpuscular Hemoglobin 29.7 Mean Corpuscular Hemoglobin Concent 33.1 Mean Corpuscular Volume 89.8 Mean Platelet Volume 6.4 L Monocytes # 0.1 L Monocytes % 1.2 Neutrophils # 5.4 Neutrophils % 89.8 H Nucleated Red Blood Cells # 0.0 Nucleated Red Blood Cells % 0.0 Platelet Count 245 # Red Blood Count 3.22 L Red Cell Distribution Width 19.2 H White Blood Count 6.0 # Alanine Aminotransferase (ALT/SGPT) 23 Albumin 3.2 L Albumin/Globulin Ratio 0.80 Alkaline Phosphatase 75 Anion Gap 20 H Aspartate Amino Transf (AST/SGOT) 15 Blood Urea Nitrogen 40 H Calcium Level 8.8 Carbon Dioxide Level 24 Chloride Level 97 Creatinine 5.86 H Direct Bilirubin 0.00 Globulin 4.00 H Glucose Level 145 Indirect Bilirubin 0.1 Potassium Level 4.7 Sodium Level 136 Total Bilirubin 0.1 L Total Protein 7.2 Activated Partial Thromboplast Time 32.0 Medications Medications Current Medications Epoetin Jordon (Epogen (Esrd)) 10,000 units MoWeFr@17 SC Last administered on 04/13t 17:27; Admin Dose 10,000 UNITS; Start 04/10/16 at 17:00 Febuxostat (Uloric) 40 mg DAILY PO Last administered on 04/14/16 08:14; Admin Dose 40 MG; Start 04/11/16 at 09:00 Linezolid (Zyvox) 600 mg BID PO Last administered on 04/14/16 20:43; Admin Dose 600 MG; Start 04/10/16 at 21:00 Minoxidil (Loniten) 10 mg DAILY PO Last administered on 04/14/16 08:15; Admin Dose 10 MG; Start 04/11/16 at 09:00 Salmeterol Xinafoate/ Fluticasone (Advair 250/50 Diskus) 1 inh BID INH Last administered on 04/14/16 20:42; Admin Dose 1 INH; Start 04/10/16 at 21:00 Senna (Senokot) 1 tab Q12H PRN PO CONSTIPATION; Start 04/10/16 at 19:30 Tamsulosin HCl (Flomax) 0.4 mg HS PO Last administered on 04/14/16 20:42; Admin Dose 0.4 MG; Start 04/10/16 at 21:00 Valsartan (Diovan) 320 mg DAILY PO Last administered on 04/14/16 08:14; Admin Dose 320 MG; Start 04/10/16 at 19:30 Clonidine (Catapres) 0.1 mg Q8 PRN PO SBP > 150; Start 04/10/16 at 19:30 Metoprolol Tartrate (Lopressor) 25 mg BID PO Last administered on 04/14/16 20: 43; Admin Dose 25 MG; Start 04/11/16 at 09:00 Methylprednisolone Sodium Succinate (Solu-Medrol) 15 mg ONCE ONCE IV ; Start at 17:30; Stop 04/15/16 at 17:31 ANDRE SMITH MD Apr 14, 2016 20:56
--- NOTE | 2016-04-14 22:53 | RADRPT ---
PROCEDURE: US bilateral upper extremity veins. CLINICAL INDICATION: Preoperative evaluation for central line placement. TECHNIQUE: Multiple longitudinal and transverse images of the bilateral internal jugular veins and subclavian veins was obtained with christy scale, pulsed Doppler imaging, and color Doppler imaging. COMPARISON: None available FINDINGS: The internal jugular veins and subclavian veins are patent bilaterally. There is normal flow and com pressibility throughout. There is no thrombus or occlusion. The right internal jugular vein diameter is 1.2 cm and the left internal jugular vein diameter is 1. 0 cm. IMPRESSION: 1. Normal bilateral internal jugular and subclavian veins. RPTAT: QQ .Kal Bowens MD, MD Date Time Electronically viewed and signed by .Kal Bowens MD, MD on 04/14/2016 22:53 .R/
[2016-04-14] MEDS ORDERED: SOD FERRIC GLUC COMPLX 125 MG in SOD CHLORIDE 0.9% 100 ML IVPB ONE (23:00)
[2016-04-15] VITALS (19 sets, daily range): BP systolic 90–151; BP diastolic 44–67; PULSE 76–120; RESP 17–24
[2016-04-15] MEDS: LEVOTHYROXINE 150 MCG TAB GTB SCH (06:50)
[2016-04-15 07:16] LABS: HEMATOCRIT 30.5 % (42.0-52.0); LYMPHOCYTES # 0.6 10^3/ul (0.8-2.9); LYMPHOCYTES % 7.1 % (15.0-51.0); MEAN CORPUSCULAR HEMOGLOBIN 29.8 pg (29.0-33.0); MEAN CORPUSCULAR HGB CONC 32.8 g/dl (32.0-37.0); MEAN CORPUSCULAR VOLUME 90.9 fl (82.0-101.0); MEAN PLATELET VOLUME 6.3 fl (7.4-10.4); MONOCYTE # 0.3 10^3/ul (0.3-0.9); MONOCYTES % 3.2 % (0.0-11.0); NEUTROPHIL # 8.1 10^3/ul (1.6-7.5); NEUTROPHILS % 89.7 % (39.0-77.0); PLATELET COUNT 294 10^3/UL (140-440); RED BLOOD COUNT 3.35 10^6/ul (4.70-6.10); RED CELL DISTRIBUTION WIDTH 19.8 % (11.5-14.5)
[2016-04-15 07:20] LABS: POTASSIUM 4.9 mmol/L (3.5-5.1)
[2016-04-15 07:22] LABS: CREATININE 7.6 mg/dl (0.61-1.24)
[2016-04-15 07:23] LABS: CALCIUM 8.8 mg/dl (8.4-10.2); PHOSPHORUS 7.3 mg/dl (2.5-4.9)
[2016-04-15 07:26] LABS: INR 1.07; PROTIME 13.9 Sec (12.2-14.2); PT RATIO 1.1
[2016-04-15 07:36] LABS: CONDITION 1; LH ANALYZER COMMENTS 1; SUSPECT 1
--- NOTE | 2016-04-15 08:17 | CONS ---
Date/Time of Note Date/Time of Note DATE: 04/15/16 TIME: 08:15 Assessment/Plan Assessment/Plan Additional Assessment/Plan 1. CKD, to have HD today after new tunnel cath is placed. 2. ASHD, asx, with no change in exam 3. Anemia sec to CKD 4. BP well controlled. Consultation Date/Type/Reason Admit Date/Time Apr 09, 2016 at 22:21 Type of Consultation: hemeonc Detailed Summary Respiratory: cough (slight and not productive), shortness of breath (is mild) Cardiovascular: No chest pain Gastrointestinal: no complaints Genitourinary: no complaints Exam/Review of Systems Vital Signs Vitals Vital Signs Date Time Temp Pulse Resp B/P Pulse Ox O2 Delivery O2 Flow Rate FiO2 04/15/16 07:19 97.9 80 17 137/64 99 04/15/16 00:39 3.0 04/14/16 20:00 Nasal Cannula Intake and Output 04/14/16 04/14/16 04/15/16 15:00 23:00 07:00 Intake Total 550 ml 700 ml Balance 550 ml 700 ml Exam Neck: No jvd Respiratory: diminished breath sounds (with basilar rales ) Cardiovascular: regular rate and rhythm, No S3 Gastrointestinal: soft Extremities: No edema Results Result Diagram: 04/15/16 0600 04/15/16 0600 Results 24 hrs Laboratory Tests Test 04/14/16 15:36 04/15/16 06:00 Activated Partial Thromboplast Time 32.0 Anion Gap 23 H Basophils # 0.0 Basophils % 0.0 Blood Morphology Comment Blood Urea Nitrogen 72 #H Calcium Level 8.8 Carbon Dioxide Level 21 Chloride Level 96 L Creatinine 7.60 H Eosinophils # 0.0 Eosinophils % 0.0 Glucose Level 117 Hematocrit 30.5 L Hemoglobin 10.0 L INR International Normalized Ratio 1.07 Lymphocytes # 0.6 L Lymphocytes % 7.1 L Mean Corpuscular Hemoglobin 29.8 Mean Corpuscular Hemoglobin Concent 32.8 Mean Corpuscular Volume 90.9 Mean Platelet Volume 6.3 L Monocytes # 0.3 Monocytes % 3.2 Neutrophils # 8.1 H Neutrophils % 89.7 H Nucleated Red Blood Cells # 0.0 Nucleated Red Blood Cells % 0.0 Phosphorus Level 7.3 H Platelet Count 294 Potassium Level 4.9 Prothrombin Time 13.9 Prothrombin Time Ratio 1.1 Red Blood Count 3.35 L Red Cell Distribution Width 19.8 H Sodium Level 135 White Blood Count 9.0 # Medications Medications Current Medications Epoetin Jordon (Epogen (Esrd)) 10,000 units MoWeFr@17 SC Last administered on 04/13 17:27; Admin Dose 10,000 UNITS; Start 04/10/16 at 17:00 Febuxostat (Uloric) 40 mg DAILY PO Last administered on 04/14/16 08:14; Admin Dose 40 MG; Start 04/11/16 at 09:00 Linezolid (Zyvox) 600 mg BID PO Last administered on 04/14/16 20:43; Admin Dose 600 MG; Start 04/10/16 at 21:00 Minoxidil (Loniten) 10 mg DAILY PO Last administered on 04/14/16 08:15; Admin Dose 10 MG; Start 04/11/16 at 09:00 Salmeterol Xinafoate/ Fluticasone (Advair 250/50 Diskus) 1 inh BID INH Last administered on 04/14/16 20:42; Admin Dose 1 INH; Start 04/10/16 at 21:00 Senna (Senokot) 1 tab Q12H PRN PO CONSTIPATION; Start 04/10/16 at 19:30 Tamsulosin HCl (Flomax) 0.4 mg HS PO Last administered on 04/14/16 20:42; Admin Dose 0.4 MG; Start 04/10/16 at 21:00 Valsartan (Diovan) 320 mg DAILY PO Last administered on 04/14/16 08:14; Admin Dose 320 MG; Start 04/10/16 at 19:30 Clonidine (Catapres) 0.1 mg Q8 PRN PO SBP > 150; Start 04/10/16 at 19:30 Metoprolol Tartrate (Lopressor) 25 mg BID PO Last administered on 04/14/16 20: 43; Admin Dose 25 MG; Start 04/11/16 at 09:00 Methylprednisolone Sodium Succinate (Solu-Medrol) 15 mg ONCE ONCE IV ; Start at 17:30; Stop 04/15/16 at 17:31 TRUE GTZ MD Apr 15, 2016 08:17
[2016-04-15] MEDS: LEVALBUTEROL (NEB) 0.63 MG/3 ML AMP HHN SCH ×3 (08:44→20:00)
[2016-04-15] MEDS: ZYVOX 600 MG TAB PO SCH (09:00)
[2016-04-15] MEDS: VALSARTAN 160 MG TAB PO SCH (09:00)
[2016-04-15] MEDS: MINOXIDIL 10 MG TAB PO SCH (09:00)
[2016-04-15] MEDS: FEBUXOSTAT 40 MG TABLET PO SCH (09:00)
[2016-04-15] MEDS: METOPROLOL 25 MG TAB PO SCH ×2 (09:00→21:00)
[2016-04-15] MEDS: SALMETEROL/FLUTICASONE 250/50 INHA INH SCH ×2 (09:03→21:00)
[2016-04-15] MEDS ORDERED: LIDOCAINE 1% (MDV) 20 ML INJ ONE (11:12)
[2016-04-15] MEDS ORDERED: FENTAnyl 50 MCG/ML VIAL ONE (11:20)
[2016-04-15] MEDS ORDERED: MIDAZOLAM 1 MG/ML 2 ML INJ ONE (11:20)
[2016-04-15] MEDS ORDERED: HEPARIN 1000 UNITS/ML 10 ML INJ ONE (11:46)
--- NOTE | 2016-04-15 16:06 | RADRPT ---
PROCEDURE: PLACEMENT OF RIGHT INTERNAL JUGULAR VENOUS TUNNELED DIALYSIS CATHETER. CLINICAL INDICATION: Renal failure. TECHNIQUE: Prior to the procedure, informed consent was obtained. Risks including bleeding, infection, and pneu mothorax were explained to the patient. The patient understood and was willing to proceed. A procedu ral pause was performed. The patient's name, date of , and procedure to be performed were verif ied. The central line was inserted with all elements of maximal sterile barrier technique. All of th e following were used: head covering, facial mask, sterile gown, sterile gloves, a large sterile she et, hand hygiene, and 2% chlorhexidine for cutaneous antisepsis. The right neck and anterior/super ior chest wall was prepped and draped in usual sterile fashion. Limited sonography of the right neck was then performed. Noted is a patent right internal jugular ve in. Ultrasound images were recorded and stored in the patient's medical record. Following the local injection of Xylocaine, the right internal jugular vein was punctured under sono graphic guidance with a 20-gauge needle through which a 0.018 inch floppy tip guidewire was advanced into the superior vena cava. The tract was dilated to 5 Cymraes and the wire was then replaced with a 0.035 in Amplatz guidewire. A tunnel was then created from the anterior lateral aspect of the sup erior right chest wall to the puncture site in the neck and the catheter was pulled through the trac t. Serial dilatation was then performed and a 16 Cymraes peel away sheath was introduced. The 14.5 Cymraes 23cm tip to cuff Angiodynamics dialysis catheter was advanced through the 16 Cymraes peel-away sheath. The tip of the catheter was confirmed in position within the right atrium. The peel-away sh eath was removed. The 2 ports were each flushed with 2.3 ml of 1:1000 heparin. The catheter was sec ured to the skin with 0 silk. The wound in the neck was closed with 4-0 Vicryl suture using subcuticular running technique. The site was dressed. The patient tolerated the procedure well. COMPARISON: None. FINDINGS: Final radiographic images demonstrate the tip of the catheter in the upper right atrium. A total of 0.2 minutes of fluoroscopy time was used. The ultrasound images demonstrate the needle entering e jugular vein. Ultrasound images were recorded and stored in the patient's medical record. IMPRESSION: 1. Percutaneous insertion of right internal jugular dialysis tunneled dialysis catheter under fluoro scopic and sonographic guidance. RPTAT: QQ .Kal Bowens MD, Date Time Electronically viewed and signed by .Kal Bowens MD, on 04/15/2016 16:06 .R/
[2016-04-15] MEDS ORDERED: METHYLPREDNISOLONE 40 MG INJ IV ONE (17:30)
[2016-04-15] MEDS: TAMSULOSIN (SR) 0.4 MG CAP PO SCH (21:00)
[2016-04-15] MEDS: EPOETIN 10000 UNITS/1 ML INJ (ESRD) SC SCH (23:00)
--- NOTE | 2016-04-15 23:15 | CONS ---
Date/Time of Note Date/Time of Note DATE: 04/15/16 TIME: 23:15 Consultation Date/Type/Reason Admit Date/Time Apr 09, 2016 at 22:21 [facility]/Review of Systems Vital Signs Vitals Vital Signs Date Time Temp Pulse Resp B/P Pulse Ox O2 Delivery O2 Flow Rate FiO2 04/15/16 22:35 86 20 04/15/16 22:11 3.0 04/15/16 20:00 97.9 143/63 97 04/15/16 08:45 Nasal Cannula Intake and Output 04/14/16 04/14/16 04/15/16 15:00 23:00 07:00 Intake Total 550 ml 700 ml Balance 550 ml 700 ml Results Result Diagram: 04/15/16 0600 04/15/16 0600 Results 24 hrs Laboratory Tests Test 04/15/16 06:00 Anion Gap 23 H Basophils # 0.0 Basophils % 0.0 Blood Morphology Comment Blood Urea Nitrogen 72 #H Calcium Level 8.8 Carbon Dioxide Level 21 Chloride Level 96 L Creatinine 7.60 H Eosinophils # 0.0 Eosinophils % 0.0 Glucose Level 117 Hematocrit 30.5 L Hemoglobin 10.0 L INR International Normalized Ratio 1.07 Lymphocytes # 0.6 L Lymphocytes % 7.1 L Mean Corpuscular Hemoglobin 29.8 Mean Corpuscular Hemoglobin Concent 32.8 Mean Corpuscular Volume 90.9 Mean Platelet Volume 6.3 L Monocytes # 0.3 Monocytes % 3.2 Neutrophils # 8.1 H Neutrophils % 89.7 H Nucleated Red Blood Cells # 0.0 Nucleated Red Blood Cells % 0.0 Phosphorus Level 7.3 H Platelet Count 294 Potassium Level 4.9 Prothrombin Time 13.9 Prothrombin Time Ratio 1.1 Red Blood Count 3.35 L Red Cell Distribution Width 19.8 H Sodium Level 135 White Blood Count 9.0 # Medications Medications Current Medications Epoetin Jordon (Epogen (Esrd)) 10,000 units MoWeFr@17 SC Last administered on 04/13 17:27; Admin Dose 10,000 UNITS; Start 04/10/16 at 17:00 Febuxostat (Uloric) 40 mg DAILY PO Last administered on 04/14/16 08:14; Admin Dose 40 MG; Start 04/11/16 at 09:00 Minoxidil (Loniten) 10 mg DAILY PO Last administered on 04/14/16 08:15; Admin Dose 10 MG; Start 04/11/16 at 09:00 Salmeterol Xinafoate/ Fluticasone (Advair 250/50 Diskus) 1 inh BID INH Last administered on 04/15/16 09:03; Admin Dose 1 INH; Start 04/10/16 at 21:00 Senna (Senokot) 1 tab Q12H PRN PO CONSTIPATION; Start 04/10/16 at 19:30 Tamsulosin HCl (Flomax) 0.4 mg HS PO Last administered on 04/14/16 20:42; Admin Dose 0.4 MG; Start 04/10/16 at 21:00 Valsartan (Diovan) 320 mg DAILY PO Last administered on 04/14/16 08:14; Admin Dose 320 MG; Start 04/10/16 at 19:30 Clonidine (Catapres) 0.1 mg Q8 PRN PO SBP > 150; Start 04/10/16 at 19:30 Metoprolol Tartrate (Lopressor) 25 mg BID PO Last administered on 04/14/16 20: 43; Admin Dose 25 MG; Start 04/11/16 at 09:00 ANDRE SMITH MD Apr 15, 2016 23:15
[2016-04-16] VITALS (15 sets, daily range): BP systolic 106–133; BP diastolic 49–63; PULSE 88–103; RESP 17–20
[2016-04-16] MEDS ORDERED: traMADol 50 MG TAB PO ONE (01:08)
[2016-04-16 06:49] LABS: HEMATOCRIT 27.5 % (42.0-52.0); HEMOGLOBIN 8.9 g/dl (14.0-18.0); LYMPHOCYTES # 0.7 10^3/ul (0.8-2.9); LYMPHOCYTES % 9.8 % (15.0-51.0); MEAN CORPUSCULAR HEMOGLOBIN 29.5 pg (29.0-33.0); MEAN CORPUSCULAR HGB CONC 32.2 g/dl (32.0-37.0); MEAN CORPUSCULAR VOLUME 91.4 fl (82.0-101.0); MEAN PLATELET VOLUME 6.3 fl (7.4-10.4); MONOCYTE # 0.4 10^3/ul (0.3-0.9); MONOCYTES % 5.9 % (0.0-11.0); NEUTROPHIL # 5.7 10^3/ul (1.6-7.5); NEUTROPHILS % 84.3 % (39.0-77.0); PLATELET COUNT 231 10^3/UL (140-440); RED BLOOD COUNT 3.01 10^6/ul (4.70-6.10); RED CELL DISTRIBUTION WIDTH 19.1 % (11.5-14.5); UNCORRECTED WBC 6.7 10^3/ul (4.8-10.8); WHITE BLOOD COUNT 6.7 10^3/ul (4.8-10.8)
[2016-04-16 06:57] LABS: CONDITION 1; LH ANALYZER COMMENTS 1
[2016-04-16 07:04] LABS: POTASSIUM 4.3 mmol/L (3.5-5.1)
[2016-04-16 07:06] LABS: CREATININE 5.19 mg/dl (0.61-1.24)
[2016-04-16 07:07] LABS: CALCIUM 8.1 mg/dl (8.4-10.2); PHOSPHORUS 5.8 mg/dl (2.5-4.9)
[2016-04-16] MEDS: LEVOTHYROXINE 150 MCG TAB GTB SCH (07:18)
--- NOTE | 2016-04-16 07:55 | CONS ---
Date/Time of Note Date/Time of Note DATE: 04/16/16 TIME: 07:52 Assessment/Plan Assessment/Plan Additional Assessment/Plan 1. CKD, on HD 2. Anemia sec to CKD, no need for transfusion now 3. Basilar rales either related to interstitial lung dz or CHF, will again HD today 4. BP controlled 5. Hopeful dc tomm 6. P sl Inc, will start P binder Consultation Date/Type/Reason Admit Date/Time Apr 09, 2016 at 22:21 Type of Consultation: hemeon Detailed Summary Respiratory: cough (mild), shortness of breath (mild) Cardiovascular: No chest pain Gastrointestinal: no complaints Genitourinary: no complaints Exam/Review of Systems Vital Signs Vitals Vital Signs Date Time Temp Pulse Resp B/P Pulse Ox O2 Delivery O2 Flow Rate FiO2 04/16/16 07:47 99.0 88 17 133/63 99 04/16/16 06:27 3.0 04/16/16 04:00 Nasal Cannula Intake and Output 04/15/16 04/15/16 04/16/16 15:00 23:00 07:00 Intake Total 750 ml 200 ml Output Total 3000 ml Balance -2250 ml 200 ml Exam Neck: No jvd Respiratory: diminished breath sounds (but bibasilar rales without wheezing is present) Cardiovascular: S3, regular rate and rhythm Gastrointestinal: soft Extremities: No edema (bilat and no calf tend) Results Result Diagram: 04/16/16 0600 04/16/16 0600 Results 24 hrs Laboratory Tests Test 04/16/16 06:00 Anion Gap 18 H Basophils # 0.0 Basophils % 0.0 Blood Morphology Comment Blood Urea Nitrogen 58 H Calcium Level 8.1 L Carbon Dioxide Level 27 Chloride Level 97 Creatinine 5.19 #H Eosinophils # 0.0 Eosinophils % 0.0 Glucose Level 112 Hematocrit 27.5 L Hemoglobin 8.9 L Lymphocytes # 0.7 L Lymphocytes % 9.8 L Mean Corpuscular Hemoglobin 29.5 Mean Corpuscular Hemoglobin Concent 32.2 Mean Corpuscular Volume 91.4 Mean Platelet Volume 6.3 L Monocytes # 0.4 Monocytes % 5.9 Neutrophils # 5.7 Neutrophils % 84.3 H Nucleated Red Blood Cells # 0.0 Nucleated Red Blood Cells % 0.0 Phosphorus Level 5.8 H Platelet Count 231 # Potassium Level 4.3 Red Blood Count 3.01 L Red Cell Distribution Width 19.1 H Sodium Level 138 White Blood Count 6.7 # Medications Medications Current Medications Epoetin Jordon (Epogen (Esrd)) 10,000 units MoWeFr@17 SC Last administered on 04/15 23:00; Admin Dose 10,000 UNITS; Start 04/10/16 at 17:00 Febuxostat (Uloric) 40 mg DAILY PO Last administered on 04/14/16 08:14; Admin Dose 40 MG; Start 04/11/16 at 09:00 Minoxidil (Loniten) 10 mg DAILY PO Last administered on 04/14/16 08:15; Admin Dose 10 MG; Start 04/11/16 at 09:00 Salmeterol Xinafoate/ Fluticasone (Advair 250/50 Diskus) 1 inh BID INH Last administered on 04/15/16 21:00; Admin Dose 1 INH; Start 04/10/16 at 21:00 Senna (Senokot) 1 tab Q12H PRN PO CONSTIPATION; Start 04/10/16 at 19:30 Tamsulosin HCl (Flomax) 0.4 mg HS PO Last administered on 04/15/16 21:00; Admin Dose 0.4 MG; Start 04/10/16 at 21:00 Valsartan (Diovan) 320 mg DAILY PO Last administered on 04/14/16 08:14; Admin Dose 320 MG; Start 04/10/16 at 19:30 Clonidine (Catapres) 0.1 mg Q8 PRN PO SBP > 150; Start 04/10/16 at 19:30 Metoprolol Tartrate (Lopressor) 25 mg BID PO Last administered on 04/14/16 20: 43; Admin Dose 25 MG; Start 04/11/16 at 09:00 TRUE GTZ MD Apr 16, 2016 07:54
[2016-04-16] MEDS: SALMETEROL/FLUTICASONE 250/50 INHA INH SCH ×2 (08:44→22:18)
[2016-04-16] MEDS: CALCIUM ACETATE 667 MG CAP GTB SCH ×3 (08:45→18:30)
[2016-04-16] MEDS: FEBUXOSTAT 40 MG TABLET PO SCH (08:45)
[2016-04-16] MEDS: MINOXIDIL 10 MG TAB PO SCH (08:47)
[2016-04-16] MEDS: VALSARTAN 160 MG TAB PO SCH (08:47)
[2016-04-16] MEDS: METOPROLOL 25 MG TAB PO SCH ×2 (08:48→22:18)
[2016-04-16] MEDS: LEVALBUTEROL (NEB) 0.63 MG/3 ML AMP HHN SCH ×3 (09:30→20:26)
[2016-04-16] MEDS: IPRATROPIUM (NEB) 0.5 MG/2.5 ML AMP HHN PRN (09:30)
--- NOTE | 2016-04-16 11:53 | CONS ---
Date/Time of Note Date/Time of Note DATE: 04/16/16 TIME: 11:53 Consultation Date/Type/Reason Admit Date/Time Apr 09, 2016 at 22:21 [facility]/Review of Systems Vital Signs Vitals Vital Signs Date Time Temp Pulse Resp B/P Pulse Ox O2 Delivery O2 Flow Rate FiO2 04/16/16 11:33 98.2 100 19 124/60 98 04/16/16 09:31 3.0 04/16/16 09:31 Nasal Cannula Intake and Output 04/15/16 04/15/16 04/16/16 15:00 23:00 07:00 Intake Total 750 ml 200 ml Output Total 3000 ml Balance -2250 ml 200 ml Results Result Diagram: 04/16/16 0600 04/16/16 0600 Results 24 hrs Laboratory Tests Test 04/16/16 06:00 Anion Gap 18 H Basophils # 0.0 Basophils % 0.0 Blood Morphology Comment Blood Urea Nitrogen 58 H Calcium Level 8.1 L Carbon Dioxide Level 27 Chloride Level 97 Creatinine 5.19 #H Eosinophils # 0.0 Eosinophils % 0.0 Glucose Level 112 Hematocrit 27.5 L Hemoglobin 8.9 L Lymphocytes # 0.7 L Lymphocytes % 9.8 L Mean Corpuscular Hemoglobin 29.5 Mean Corpuscular Hemoglobin Concent 32.2 Mean Corpuscular Volume 91.4 Mean Platelet Volume 6.3 L Monocytes # 0.4 Monocytes % 5.9 Neutrophils # 5.7 Neutrophils % 84.3 H Nucleated Red Blood Cells # 0.0 Nucleated Red Blood Cells % 0.0 Phosphorus Level 5.8 H Platelet Count 231 # Potassium Level 4.3 Red Blood Count 3.01 L Red Cell Distribution Width 19.1 H Sodium Level 138 White Blood Count 6.7 # Medications Medications Current Medications Epoetin Jordon (Epogen (Esrd)) 10,000 units MoWeFr@17 SC Last administered on 04/15 23:00; Admin Dose 10,000 UNITS; Start 04/10/16 at 17:00 Febuxostat (Uloric) 40 mg DAILY PO Last administered on 04/16/16 08:45; Admin Dose 40 MG; Start 04/11/16 at 09:00 Minoxidil (Loniten) 10 mg DAILY PO Last administered on 04/14/16 08:15; Admin Dose 10 MG; Start 04/11/16 at 09:00 Salmeterol Xinafoate/ Fluticasone (Advair 250/50 Diskus) 1 inh BID INH Last administered on 04/16/16 08:44; Admin Dose 1 INH; Start 04/10/16 at 21:00 Senna (Senokot) 1 tab Q12H PRN PO CONSTIPATION; Start 04/10/16 at 19:30 Tamsulosin HCl (Flomax) 0.4 mg HS PO Last administered on 04/15/16 21:00; Admin Dose 0.4 MG; Start 04/10/16 at 21:00 Valsartan (Diovan) 320 mg DAILY PO Last administered on 04/14/16 08:14; Admin Dose 320 MG; Start 04/10/16 at 19:30 Clonidine (Catapres) 0.1 mg Q8 PRN PO SBP > 150; Start 04/10/16 at 19:30 Metoprolol Tartrate (Lopressor) 25 mg BID PO Last administered on 04/14/16 20: 43; Admin Dose 25 MG; Start 04/11/16 at 09:00 ANDRE SMITH MD Apr 16, 2016 11:53
[2016-04-16] MEDS: TAMSULOSIN (SR) 0.4 MG CAP PO SCH (22:18)
[2016-04-17] VITALS (20 sets, daily range): BP systolic 88–155; BP diastolic 38–68; PULSE 60–155; RESP 17–20
[2016-04-17] MEDS: LEVOTHYROXINE 150 MCG TAB GTB SCH (06:04)
[2016-04-17] MEDS: LEVALBUTEROL (NEB) 0.63 MG/3 ML AMP HHN SCH ×3 (08:00→20:00)
--- NOTE | 2016-04-17 08:00 | CONS ---
Date/Time of Note Date/Time of Note DATE: 04/17/16 TIME: 07:57 Assessment/Plan Assessment/Plan Additional Assessment/Plan 1. Pt was not HD yesterday as there was a "emergency" with dialysis service, to have HD today and tomm. Could be dc'd today if HD planned as OP tomm. 2. Bibasilar rales sec to interstitial lung dz or chf. 3. BP control is adequate 4. Anemia noted, repeat cbc pending today. Consultation Date/Type/Reason Admit Date/Time Apr 09, 2016 at 22:21 Type of Consultation: [facility]on Detailed Summary Respiratory: No shortness of breath Cardiovascular: No chest pain Gastrointestinal: no complaints Genitourinary: no complaints Exam/Review of Systems Vital Signs Vitals Vital Signs Date Time Temp Pulse Resp B/P Pulse Ox O2 Delivery O2 Flow Rate FiO2 04/17/16 07:31 98.2 89 17 155/68 99 04/17/16 04:00 Room Air 04/17/16 02:16 3.0 Intake and Output 04/16/16 04/16/16 04/17/16 15:00 23:00 07:00 Intake Total 1000 ml 200 ml Output Total 300 ml Balance 700 ml 200 ml Exam Neck: No jvd Respiratory: clear to auscultation (few basilar rales noted (no chg from yesterday)) Gastrointestinal: soft Extremities: No edema (and no calf tend) Results Result Diagram: 04/16/16 0600 04/16/16 0600 Medications Medications Current Medications Epoetin Jordon (Epogen (Esrd)) 10,000 units MoWeFr@17 SC Last administered on 04/15 23:00; Admin Dose 10,000 UNITS; Start 04/10/16 at 17:00 Febuxostat (Uloric) 40 mg DAILY PO Last administered on 04/16/16 08:45; Admin Dose 40 MG; Start 04/11/16 at 09:00 Minoxidil (Loniten) 10 mg DAILY PO Last administered on 04/14/16 08:15; Admin Dose 10 MG; Start 04/11/16 at 09:00 Salmeterol Xinafoate/ Fluticasone (Advair 250/50 Diskus) 1 inh BID INH Last administered on 04/16/16 22:18; Admin Dose 1 INH; Start 04/10/16 at 21:00 Senna (Senokot) 1 tab Q12H PRN PO CONSTIPATION; Start 04/10/16 at 19:30 Tamsulosin HCl (Flomax) 0.4 mg HS PO Last administered on 04/16/16 22:18; Admin Dose 0.4 MG; Start 04/10/16 at 21:00 Valsartan (Diovan) 320 mg DAILY PO Last administered on 04/14/16 08:14; Admin Dose 320 MG; Start 04/10/16 at 19:30 Clonidine (Catapres) 0.1 mg Q8 PRN PO SBP > 150; Start 04/10/16 at 19:30 Metoprolol Tartrate (Lopressor) 25 mg BID PO Last administered on 04/16/16 22: 18; Admin Dose 25 MG; Start 04/11/16 at 09:00 TRUE GTZ MD Apr 17, 2016 08:00
[2016-04-17 08:11] LABS: BASOPHILS % 0.2 % (0.0-2.0); CONDITION 1; EOSINOPHILS # 0.1 10^3/ul (0.0-0.5); EOSINOPHILS % 0.7 % (0.0-7.0); HEMATOCRIT 31.4 % (42.0-52.0); HEMOGLOBIN 10.3 g/dl (14.0-18.0); LH ANALYZER COMMENTS 1; LYMPHOCYTES # 2.3 10^3/ul (0.8-2.9); LYMPHOCYTES % 16.7 % (15.0-51.0); MEAN CORPUSCULAR HGB CONC 32.7 g/dl (32.0-37.0); MEAN CORPUSCULAR VOLUME 91.9 fl (82.0-101.0); MEAN PLATELET VOLUME 6.1 fl (7.4-10.4); MONOCYTE # 1.1 10^3/ul (0.3-0.9); NEUTROPHIL # 10.3 10^3/ul (1.6-7.5); NEUTROPHILS % 74.4 % (39.0-77.0); PLATELET COUNT 269 10^3/UL (140-440); RED BLOOD COUNT 3.41 10^6/ul (4.70-6.10); RED CELL DISTRIBUTION WIDTH 18.6 % (11.5-14.5); UNCORRECTED WBC 13.8 10^3/ul (4.8-10.8); WHITE BLOOD COUNT 13.8 10^3/ul (4.8-10.8)
[2016-04-17 08:26] LABS: POTASSIUM 4.4 mmol/L (3.5-5.1)
[2016-04-17 08:29] LABS: CALCIUM 8.1 mg/dl (8.4-10.2)
[2016-04-17 08:36] LABS: CREATININE 6.3 mg/dl (0.61-1.24)
[2016-04-17] MEDS: SALMETEROL/FLUTICASONE 250/50 INHA INH SCH ×2 (08:46→20:40)
[2016-04-17] MEDS: CALCIUM ACETATE 667 MG CAP GTB SCH ×3 (08:46→17:27)
[2016-04-17] MEDS: FEBUXOSTAT 40 MG TABLET PO SCH (08:46)
[2016-04-17] MEDS: VALSARTAN 160 MG TAB PO SCH (08:47)
[2016-04-17] MEDS: METOPROLOL 25 MG TAB PO SCH ×2 (08:47→20:40)
[2016-04-17] MEDS: MINOXIDIL 10 MG TAB PO SCH (08:47)
--- NOTE | 2016-04-17 09:42 | CONS ---
Date/Time of Note Date/Time of Note DATE: 04/17/16 TIME: 09:42 Consultation Date/Type/Reason Admit Date/Time Apr 09, 2016 at 22:21 Type of Consultation: hemeon Exam/Review of Systems Vital Signs Vitals Vital Signs Date Time Temp Pulse Resp B/P Pulse Ox O2 Delivery O2 Flow Rate FiO2 04/17/16 09:31 155 04/17/16 07:31 98.2 17 155/68 99 04/17/16 04:00 Room Air 04/17/16 02:16 3.0 Intake and Output 04/16/16 04/16/16 04/17/16 15:00 23:00 07:00 Intake Total 1000 ml 200 ml Output Total 300 ml Balance 700 ml 200 ml Results Result Diagram: 04/17/16 0655 04/17/16 0655 Results 24 hrs Laboratory Tests Test 04/17/16 06:55 Anion Gap 18 H Basophils # 0.0 Basophils % 0.2 Blood Morphology Comment Blood Urea Nitrogen 87 H Calcium Level 8.1 L Carbon Dioxide Level 28 Chloride Level 95 L Creatinine 6.30 H Eosinophils # 0.1 Eosinophils % 0.7 Glucose Level 88 Hematocrit 31.4 L Hemoglobin 10.3 L Lymphocytes # 2.3 Lymphocytes % 16.7 Mean Corpuscular Hemoglobin 30.0 Mean Corpuscular Hemoglobin Concent 32.7 Mean Corpuscular Volume 91.9 Mean Platelet Volume 6.1 L Monocytes # 1.1 H Monocytes % 8.0 Neutrophils # 10.3 H Neutrophils % 74.4 Nucleated Red Blood Cells # 0.0 Nucleated Red Blood Cells % 0.0 Platelet Count 269 Potassium Level 4.4 Red Blood Count 3.41 L Red Cell Distribution Width 18.6 H Sodium Level 137 White Blood Count 13.8 #H Medications Medications Current Medications Epoetin Jordon (Epogen (Esrd)) 10,000 units MoWeFr@17 SC Last administered on 04/15 23:00; Admin Dose 10,000 UNITS; Start 04/10/16 at 17:00 Febuxostat (Uloric) 40 mg DAILY PO Last administered on 04/17/16 08:46; Admin Dose 40 MG; Start 04/11/16 at 09:00 Minoxidil (Loniten) 10 mg DAILY PO Last administered on 04/14/16 08:15; Admin Dose 10 MG; Start 04/11/16 at 09:00 Salmeterol Xinafoate/ Fluticasone (Advair 250/50 Diskus) 1 inh BID INH Last administered on 04/17/16 08:46; Admin Dose 1 INH; Start 04/10/16 at 21:00 Senna (Senokot) 1 tab Q12H PRN PO CONSTIPATION; Start 04/10/16 at 19:30 Tamsulosin HCl (Flomax) 0.4 mg HS PO Last administered on 04/16/16 22:18; Admin Dose 0.4 MG; Start 04/10/16 at 21:00 Valsartan (Diovan) 320 mg DAILY PO Last administered on 04/14/16 08:14; Admin Dose 320 MG; Start 04/10/16 at 19:30 Clonidine (Catapres) 0.1 mg Q8 PRN PO SBP > 150; Start 04/10/16 at 19:30 Metoprolol Tartrate (Lopressor) 25 mg BID PO Last administered on 04/16/16 22: 18; Admin Dose 25 MG; Start 04/11/16 at 09:00 ANDRE SMITH MD Apr 17, 2016 09:42
[2016-04-17] MEDS: EPOETIN 10000 UNITS/1 ML INJ (ESRD) SC SCH (17:28)
[2016-04-17] MEDS: TAMSULOSIN (SR) 0.4 MG CAP PO SCH (20:39)
[2016-04-18] VITALS (18 sets, daily range): BP systolic 126–164; BP diastolic 57–72; PULSE 84–100; RESP 20
[2016-04-18] MEDS: LEVOTHYROXINE 150 MCG TAB GTB SCH (06:13)
[2016-04-18 07:39] LABS: BASOPHILS % 0.3 % (0.0-2.0); EOSINOPHILS # 0.2 10^3/ul (0.0-0.5); EOSINOPHILS % 1.5 % (0.0-7.0); HEMOGLOBIN 9.5 g/dl (14.0-18.0); LYMPHOCYTES # 2.1 10^3/ul (0.8-2.9); LYMPHOCYTES % 17.8 % (15.0-51.0); MEAN CORPUSCULAR HEMOGLOBIN 29.9 pg (29.0-33.0); MEAN CORPUSCULAR HGB CONC 32.8 g/dl (32.0-37.0); MEAN PLATELET VOLUME 6.3 fl (7.4-10.4); MONOCYTE # 1.2 10^3/ul (0.3-0.9); MONOCYTES % 9.9 % (0.0-11.0); NEUTROPHIL # 8.2 10^3/ul (1.6-7.5); NEUTROPHILS % 70.5 % (39.0-77.0); PLATELET COUNT 206 10^3/UL (140-440); RED BLOOD COUNT 3.19 10^6/ul (4.70-6.10); UNCORRECTED WBC 11.6 10^3/ul (4.8-10.8); WHITE BLOOD COUNT 11.6 10^3/ul (4.8-10.8)
[2016-04-18 07:40] LABS: CONDITION 1; LH ANALYZER COMMENTS 1
[2016-04-18 07:55] LABS: POTASSIUM 3.9 mmol/L (3.5-5.1)
[2016-04-18 07:58] LABS: CALCIUM 7.6 mg/dl (8.4-10.2)
[2016-04-18] MEDS: CALCIUM ACETATE 667 MG CAP GTB SCH ×2 (08:00→12:00)
[2016-04-18 08:09] LABS: CREATININE 6.05 mg/dl (0.61-1.24)
--- NOTE | 2016-04-18 08:24 | CONS ---
Date/Time of Note Date/Time of Note DATE: 04/18/16 TIME: 08:19 Assessment/Plan Assessment/Plan Additional Assessment/Plan ckd 5 dialysis dependent intersitial lung disease chf anemia-stable Plan: dialysis and discharge per primary Consultation Date/Type/Reason Admit Date/Time Apr 09, 2016 at 22:21 Initial Consult Date Type of Consultation: nephrology 24 HR Interval Summary Free Text/Dictation Patient resting comfortably and no sob per nursing. Scheduled for dialysis today. Constitutional: no complaints Exam/Review of Systems Vital Signs Vitals Vital Signs Date Time Temp Pulse Resp B/P Pulse Ox O2 Delivery O2 Flow Rate FiO2 04/18/16 07:58 98.4 91 20 147/66 97 04/17/16 20:09 3.0 04/17/16 20:09 Nasal Cannula Intake and Output 04/17/16 04/17/16 04/18/16 15:00 23:00 07:00 Intake Total 800 ml 1200 ml 400 ml Output Total 2000 ml 1200 ml Balance -1200 ml 0 ml 400 ml Exam Respiratory: crackles/rales Cardiovascular: regular rate and rhythm Gastrointestinal: soft Extremities: other (no edema) Results Result Diagram: 04/18/16 0707 04/18/16 0707 Results 24 hrs Laboratory Tests Test 04/18/16 07:07 Anion Gap 17 H Basophils # 0.0 Basophils % 0.3 Blood Morphology Comment Blood Urea Nitrogen 75 H Calcium Level 7.6 L Carbon Dioxide Level 30 Chloride Level 94 L Creatinine 6.05 H Eosinophils # 0.2 Eosinophils % 1.5 Glucose Level 91 Hematocrit 29.0 L Hemoglobin 9.5 L Lymphocytes # 2.1 Lymphocytes % 17.8 Mean Corpuscular Hemoglobin 29.9 Mean Corpuscular Hemoglobin Concent 32.8 Mean Corpuscular Volume 91.0 Mean Platelet Volume 6.3 L Monocytes # 1.2 H Monocytes % 9.9 Neutrophils # 8.2 H Neutrophils % 70.5 Nucleated Red Blood Cells # 0.0 Nucleated Red Blood Cells % 0.0 Platelet Count 206 # Potassium Level 3.9 Red Blood Count 3.19 L Red Cell Distribution Width 19.0 H Sodium Level 137 White Blood Count 11.6 H Medications Medications Current Medications Epoetin Jordon (Epogen (Esrd)) 10,000 units MoWeFr@17 SC Last administered on 04/17t 17:28; Admin Dose 10,000 UNITS; Start 04/10/16 at 17:00 Febuxostat (Uloric) 40 mg DAILY PO Last administered on 04/17/16 08:46; Admin Dose 40 MG; Start 04/11/16 at 09:00 Minoxidil (Loniten) 10 mg DAILY PO Last administered on 04/14/16 08:15; Admin Dose 10 MG; Start 04/11/16 at 09:00 Salmeterol Xinafoate/ Fluticasone (Advair 250/50 Diskus) 1 inh BID INH Last administered on 04/17/16 20:40; Admin Dose 1 INH; Start 04/10/16 at 21:00 Senna (Senokot) 1 tab Q12H PRN PO CONSTIPATION; Start 04/10/16 at 19:30 Tamsulosin HCl (Flomax) 0.4 mg HS PO Last administered on 04/17/16 20:39; Admin Dose 0.4 MG; Start 04/10/16 at 21:00 Valsartan (Diovan) 320 mg DAILY PO Last administered on 04/14/16 08:14; Admin Dose 320 MG; Start 04/10/16 at 19:30 Clonidine (Catapres) 0.1 mg Q8 PRN PO SBP > 150; Start 04/10/16 at 19:30 Metoprolol Tartrate (Lopressor) 25 mg BID PO Last administered on 04/17/16 20: 40; Admin Dose 25 MG; Start 04/11/16 at 09:00 JACINTO CINTRON MD Apr 18, 2016 08:24
[2016-04-18] MEDS: LEVALBUTEROL (NEB) 0.63 MG/3 ML AMP HHN SCH ×2 (08:40→14:21)
[2016-04-18] MEDS: FEBUXOSTAT 40 MG TABLET PO SCH ×2 (09:00→14:47)
[2016-04-18] MEDS: MINOXIDIL 10 MG TAB PO SCH ×2 (09:00→14:46)
[2016-04-18] MEDS: VALSARTAN 160 MG TAB PO SCH ×2 (09:00→14:47)
[2016-04-18] MEDS: METOPROLOL 25 MG TAB PO SCH ×2 (09:00→14:47)
[2016-04-18] MEDS ORDERED: HYDROCORTISONE 2.5% 30 GM RECT CR PR ONE (09:30)
--- NOTE | 2016-04-18 13:06 | CONS ---
Date/Time of Note Date/Time of Note DATE: 04/18/16 TIME: 13:05 Consultation Date/Type/Reason Admit Date/Time Apr 09, 2016 at 22:21 [facility] Exam/Review of Systems Vital Signs Vitals Vital Signs Date Time Temp Pulse Resp B/P Pulse Ox O2 Delivery O2 Flow Rate FiO2 04/18/16 12:15 86 04/18/16 11:33 98.2 20 136/64 96 04/18/16 08:41 3.0 04/18/16 08:41 Nasal Cannula Intake and Output 04/17/16 04/17/16 04/18/16 15:00 23:00 07:00 Intake Total 800 ml 1200 ml 400 ml Output Total 2000 ml 1200 ml Balance -1200 ml 0 ml 400 ml Results Result Diagram: 04/18/16 0707 04/18/16 0707 Results 24 hrs Laboratory Tests Test 04/18/16 07:07 Anion Gap 17 H Basophils # 0.0 Basophils % 0.3 Blood Morphology Comment Blood Urea Nitrogen 75 H Calcium Level 7.6 L Carbon Dioxide Level 30 Chloride Level 94 L Creatinine 6.05 H Eosinophils # 0.2 Eosinophils % 1.5 Glucose Level 91 Hematocrit 29.0 L Hemoglobin 9.5 L Lymphocytes # 2.1 Lymphocytes % 17.8 Mean Corpuscular Hemoglobin 29.9 Mean Corpuscular Hemoglobin Concent 32.8 Mean Corpuscular Volume 91.0 Mean Platelet Volume 6.3 L Monocytes # 1.2 H Monocytes % 9.9 Neutrophils # 8.2 H Neutrophils % 70.5 Nucleated Red Blood Cells # 0.0 Nucleated Red Blood Cells % 0.0 Platelet Count 206 # Potassium Level 3.9 Red Blood Count 3.19 L Red Cell Distribution Width 19.0 H Sodium Level 137 White Blood Count 11.6 H Medications Medications Current Medications Epoetin Jordon (Epogen (Esrd)) 10,000 units MoWeFr@17 SC Last administered on 04/17 17:28; Admin Dose 10,000 UNITS; Start 04/10/16 at 17:00 Febuxostat (Uloric) 40 mg DAILY PO Last administered on 04/17/16 08:46; Admin Dose 40 MG; Start 04/11/16 at 09:00 Minoxidil (Loniten) 10 mg DAILY PO Last administered on 1/3/17at 08:15; Admin Dose 10 MG; Start 04/11/16 at 09:00 Salmeterol Xinafoate/ Fluticasone (Advair 250/50 Diskus) 1 inh BID INH Last administered on 04/17/16 20:40; Admin Dose 1 INH; Start 04/10/16 at 21:00 Senna (Senokot) 1 tab Q12H PRN PO CONSTIPATION; Start 04/10/16 at 19:30 Tamsulosin HCl (Flomax) 0.4 mg HS PO Last administered on 04/17/16 20:39; Admin Dose 0.4 MG; Start 04/10/16 at 21:00 Valsartan (Diovan) 320 mg DAILY PO Last administered on 04/14/16 08:14; Admin Dose 320 MG; Start 04/10/16 at 19:30 Clonidine (Catapres) 0.1 mg Q8 PRN PO SBP > 150; Start 04/10/16 at 19:30 Metoprolol Tartrate (Lopressor) 25 mg BID PO Last administered on 04/17/16 20: 40; Admin Dose 25 MG; Start 04/11/16 at 09:00 ANDRE SMITH MD Apr 18, 2016 13:06
[2016-04-18] MEDS: IPRATROPIUM (NEB) 0.5 MG/2.5 ML AMP HHN PRN (14:24)
[2016-04-18] MEDS: SALMETEROL/FLUTICASONE 250/50 INHA INH SCH (14:46)
--- NOTE | 2016-04-18 15:07 | DS ---
Date/Time of Note Date/Time of Note DATE: 04/18/16 TIME: 15:06 Discharge Summary Admission/Discharge Info Admit Date/Time Apr 09, 2016 at 22:21 Discharge Date/Time Final Diagnosis 1. Hypotension after clonidine use before dialysis now improved 2. Episode of losing awareness while having decreased BP to 70/30mm HG ; before and during dialysis. 3. End-stage renal disease. 4. Tachycardia- persists 5. Diabetes type 2. 6. Osteoporosis. 7. Osteoarthritis. 8. Anemia of chronic disease. 9. Status post multiple units of packed red blood cell transfusions. 10. Weight loss. 11. Hypertension. 12. Memory impairment. 13. Major depression. 14. Back pain. 15. Benign prostatic hypertrophy. 16. S/P left forearm a/v shunt placement for dialysis, with good drill on palpation. 17. S/P right Jugular vein cannulation for dialysis 18. Hypoxemia 19. Anxiety-depression 20. Excessive thirst. 21.COPD persists, no exacerbation. 22.Leukocytosis- improved . 23. Weight loss- progressive 24.Poor anger control with dissatisfaction and attitude of blaming everybody during anger episodes without awareness of wrongdoing. 25.Hypothyroidism 26.Chronic uti 27.S/P BIPAP us for hypercapnia now Pc02 47 and PH 7.32. 28.Severe weakness and fatigue, progressively worse. Patient Condition: Fair Hospital Course 1. ESRD , he had a shortened dialysis treatment again today because he says that he had hypotension. The dialysis nurse says that he just wanted to be taken off. She did not say that he was hypotensive. . He has had difficulty with dialysis treatments because of either chest pain , now abdominal pain or hypotension. I will order dialysis for tomorrow . 2. new femoral dialysis catheter placed yesterday because R internal jugular permacath was dislodged . He has a L upper arm AV fistula which is not ready to be used according to the vascular surgeon . 3. I ordered a chest x-ray for tomorrow. I am concerned that he is getting fluid overloaded because of having shortened dialysis treatments. Home Meds Active Scripts Linezolid (Linezolid) 600 Mg Tablet, 600 MG PO BID for 10 Days, TAB Prov:HINA CASTILLO MD 04/04/16 Reported Medications Acetaminophen (Mapap) 500 Mg Capsule, 1000 MG PO Q4H Y for PAIN, CAP 01/13/16 Sennosides* (Senna Lax*) 8.6 Mg Tablet, 1 TAB PO Q12H Y for CONSTIPATION, TAB 01/13/16 Levalbuterol* (Xopenex* HFA) 15 Gm Inha, 2 PUFFS INH Q4H Y for WHEEZING AND SOB , INHALER 01/13/16 [place]-3 Acid Ethyl Esters (Lovaza) 1 Gm Capsule, 1 GM PO BID, CAP 01/13/16 Minoxidil* (Lonitin*) 10 Mg Tab, 10 MG PO DAILY, TAB 01/13/16 Clonidine Hcl* (Clonidine Hcl*) 0.1 Mg Tab, 0.1 MG PO BID, TAB 01/13/16 Valsartan* (Diovan*) 320 Mg Tablet, 320 MG PO DAILY, TAB 01/13/16 Salmeterol Xinaf/Fluticasone* (Advair*) 250-50 Diskus Inhaler, 1 INH INHALATION BID, #1 INHALER 11/28/15 Clopidogrel Bisulfate* (Clopidogrel Bisulfate*) 75 Mg Tablet, 75 MG PO DAILY, # 30 TAB 11/28/15 Febuxostat* (Uloric*) 40 Mg Tablet, 40 MG PO DAILY, TAB 11/28/15 Esomeprazole Mag Trihydrate (Nexium) 40 Mg Capsule.dr, 40 MG PO DAILY, #30 CAP 11/28/15 Tamsulosin Hcl* (Tamsulosin Hcl*) 0.4 Mg Cap.er.24h, 0.4 MG PO HS, CAP 11/28/15 Levothyroxine Sodium* (Levothyroxine Sodium*) 125 Mcg Tablet, 125 MCG PO BEFORE BREAKFAST, #30 TAB 11/28/15 Follow-up Plan Discharge if it is ok with . Discharge to SNF. Pending Labs Laboratory Tests Test 04/18/16 07:07 Anion Gap 17 (8-16) Basophils # 0.010^3/ul (0.0-0.1) Basophils % 0.3% (0.0-2.0) Blood Morphology Comment Blood Urea Nitrogen 75mg/dl (7-20) Calcium Level 7.6mg/dl (8.4-10.2) Carbon Dioxide Level 30mmol/L (21-31) Chloride Level 94mmol/L (97-110) Creatinine 6.05mg/dl (0.61-1.24) Eosinophils # 0.210^3/ul (0.0-0.5) Eosinophils % 1.5% (0.0-7.0) Glucose Level 91mg/dl (70-220) Hematocrit 29.0% (42.0-52.0) Hemoglobin 9.5g/dl (14.0-18.0) Lymphocytes # 2.110^3/ul (0.8-2.9) Lymphocytes % 17.8% (15.0-51.0) Mean Corpuscular Hemoglobin 29.9pg (29.0-33.0) Mean Corpuscular Hemoglobin Concent 32.8g/dl (32.0-37.0) Mean Corpuscular Volume 91.0fl (82.0-101.0) Mean Platelet Volume 6.3fl (7.4-10.4) Monocytes # 1.210^3/ul (0.3-0.9) Monocytes % 9.9% (0.0-11.0) Neutrophils # 8.210^3/ul (1.6-7.5) Neutrophils % 70.5% (39.0-77.0) Nucleated Red Blood Cells # 0.010^3/ul (0.0-0.0) Nucleated Red Blood Cells % 0.0/100WBC (0.0-0.0) Platelet Count 92393^3/UL (140-440) Potassium Level 3.9mmol/L (3.5-5.1) Red Blood Count 3.1910^6/ul (4.70-6.10) Red Cell Distribution Width 19.0% (11.5-14.5) Sodium Level 137mmol/L (135-144) White Blood Count 11.610^3/ul (4.8-10.8) HINA CASTILLO MD Apr 18, 2016 15:07
== END 2016-04-18 17:24 | DRG 312 ==
LOC: E/R 18:06 → MS4 22:21
PROVIDERS: ADMIT Family Medicine; ATTEND Family Medicine
PROC: 5A1D60Z (ICD-10-PCS; 2016-04-10)
PROC: 06HM33Z Insertion of Infusion Device into Right Femoral Vein, Percutaneous Approach (ICD-10-PCS; principal; 2016-04-11)
PROC: B5131ZA Fluoroscopy of Right Jugular Veins using Low Osmolar Contrast, Guidance (ICD-10-PCS; 2016-04-15)
PROC: 05HM33Z Insertion of Infusion Device into Right Internal Jugular Vein, Percutaneous Approach (ICD-10-PCS; 2016-04-15 12:30)
DX: I95.3 Hypotension of hemodialysis (principal); I12.0 Hypertensive chronic kidney disease with stage 5 chronic kidney disease or end stage renal disease; N18.6 End stage renal disease; T82.42XA Displacement of vascular dialysis catheter, initial encounter; I95.2 Hypotension due to drugs; T46.5X5A Adverse effect of other antihypertensive drugs, initial encounter; Y92.538 Other ambulatory health services establishments as the place of occurrence of the external cause; E11.8 Type 2 diabetes mellitus with unspecified complications; R00.0 Tachycardia, unspecified; E03.9 Hypothyroidism, unspecified; Z95.1 Presence of aortocoronary bypass graft; Z87.891 Personal history of nicotine dependence; J44.9 Chronic obstructive pulmonary disease, unspecified; D63.1 Anemia in chronic kidney disease; Z99.2 Dependence on renal dialysis
CPT/HCPCS: 36600; 71010; 74176; 77001; 80048; 80053; 81001; 81003; 82607; 82728; 82746; 82803; 83540; 83690; 83735; 84100; 84484; 85025; 85610; 85730; 87081; 87086; 90686; 90935; 93005; 93931; 93965; 94640; 94664; 96374; 96375; C1750; C1769; J0886; J1170; J1644; J2250; J2405; J2916; J2920; J2930; J3010; J7030; J7040

== ENCOUNTER 2016-04-23 17:26 | Inpatient (IN) | payer MEDICARE, BC ==
[~2016-04-23] VITALS: Ht 160 cm; Wt 71.6 kg
[2016-04-23] MEDS ORDERED: LORAZEPAM 2 MG INJ ONE (17:46)
[2016-04-23] MEDS ORDERED: LORAZEPAM 2 MG INJ IM ONE (18:00)
[2016-04-23 18:13] LABS: HEMATOCRIT 30.4 % (42.0-52.0); HEMOGLOBIN 10.1 g/dl (14.0-18.0); MEAN CORPUSCULAR HEMOGLOBIN 29.7 pg (29.0-33.0); MEAN CORPUSCULAR HGB CONC 33.1 g/dl (32.0-37.0); MEAN CORPUSCULAR VOLUME 89.6 fl (82.0-101.0); MEAN PLATELET VOLUME 7.2 fl (7.4-10.4); PLATELET COUNT 279 10^3/UL (140-440); RED BLOOD COUNT 3.39 10^6/ul (4.70-6.10); RED CELL DISTRIBUTION WIDTH 19.1 % (11.5-14.5); UNCORRECTED WBC 18.9 10^3/ul (4.8-10.8); WHITE BLOOD COUNT 18.9 10^3/ul (4.8-10.8)
[2016-04-23 18:20] LABS: CONDITION 1; LH ANALYZER COMMENTS 1; SUSPECT 1
[2016-04-23 18:23] LABS: INR 1.07; PROTIME 13.9 Sec (12.2-14.2); PT RATIO 1.1
[2016-04-23 18:24] LABS: PARTIAL THROMBOPLASTIN TIME 29.2 Sec (25.0-35.0)
[2016-04-23 18:26] LABS: POTASSIUM 3.6 mmol/L (3.5-5.1)
[2016-04-23 18:28] LABS: CREATININE 6.48 mg/dl (0.61-1.24)
[2016-04-23 18:29] LABS: CALCIUM 8.5 mg/dl (8.4-10.2)
[2016-04-23 18:38] LABS: TROPONIN-I 0.042 ng/ml (0.00-0.12)
--- NOTE | 2016-04-23 18:57 | RADRPT ---
PROCEDURE: CR, chest CLINICAL INDICATION: Chest pain. TECHNIQUE: AP chest. COMPARISON: Chest, 04/13/2016. FINDINGS: The heart is enlarged with pulmonary venous congestion. There is calcified atherosclerosis of the a ortic arch. The right Perma-Cath remains in good position. There is no acute infiltrate in the maciej gs. No pleural effusion. IMPRESSION: 1. Cardiomegaly with pulmonary venous congestion, unchanged since the last x-ray of 04/13/2016. 2. Calcified atherosclerosis of the aortic arch. RPTAT: GG .Raul Felipe MD, MD Date Time Electronically viewed and signed by .Raul Felipe MD, MD on 04/23/2016 18:56 .Y/
[2016-04-23 18:59] LABS: CREATINE KINASE < 20 IU/L (23-200)
[2016-04-23 19:08] LABS: TROPONIN-I 0.047 ng/ml (0.00-0.12)
[2016-04-23 19:09] LABS: EOSINOPHILS # 0.6 10^3/ul (0.0-0.5); LYMPHOCYTES # 2.5 10^3/ul (0.8-2.9); MONOCYTE # 0.9 10^3/ul (0.3-0.9); NEUTROPHIL # 14.9 10^3/ul (1.6-7.5)
[2016-04-23 19:10] LABS: CK-MB 0.98 ng/ml (0.0-2.4)
--- NOTE | 2016-04-23 19:28 | ERA ---
ER Documentation Chief Complaint Date/Time DATE: 04/23/16 TIME: 19:25 Chief Complaint SOB x 1 hour HPI This is a 81-year-old male who presents to the emergency room from his dialysis center for evaluation of chest pain, palpitations, shortness of breath. The patient states that he was given a getting dialysis and started to become short of breath. He states his shortness of breath has improved slightly however his chest pain is intermittent and described as a pressure-like sensation in the center of his chest with no radiation. Patient was brought in for further evaluation. ROS All systems reviewed and are negative except as per history of present illness. Medications Home Meds Reported Medications Sennosides* (Senna Lax*) 8.6 Mg Tablet, 1 TAB PO DAILY Y for CONSTIPATION, TAB 01/13/16 Levalbuterol* (Xopenex* HFA) 15 Gm Inha, 2 PUFFS INH Q4H Y for WHEEZING AND SOB , INHALER 01/13/16 Minoxidil* (Lonitin*) 10 Mg Tab, 10 MG PO DAILY, TAB HOLD FOR SBP<110 HR<60(HTN) 01/13/16 Clonidine Hcl* (Clonidine Hcl*) 0.1 Mg Tab, 0.1 MG PO BID, TAB FOR SBP<110: HR<60(HTN) 01/13/16 Valsartan* (Diovan*) 320 Mg Tablet, 320 MG PO DAILY, TAB HOLD FOR SBP<110 HR<60(HTN) 01/13/16 Salmeterol Xinaf/Fluticasone* (Advair*) 250-50 Diskus Inhaler, 1 INH INHALATION BID, #1 INHALER 11/28/15 Clopidogrel Bisulfate* (Clopidogrel Bisulfate*) 75 Mg Tablet, 75 MG PO DAILY, # 30 TAB 11/28/15 Esomeprazole Mag Trihydrate (Nexium) 40 Mg Capsule.dr, 40 MG PO DAILY, #30 CAP 11/28/15 Tamsulosin Hcl* (Tamsulosin Hcl*) 0.4 Mg Cap.er.24h, 0.4 MG PO HS, CAP 11/28/15 Levothyroxine Sodium* (Levothyroxine Sodium*) 125 Mcg Tablet, 125 MCG PO BEFORE BREAKFAST, #30 TAB 11/28/15 Discontinued Reported Medications Acetaminophen (Mapap) 500 Mg Capsule, 1000 MG PO Q4H Y for PAIN, CAP 01/13/16 [place]-3 Acid Ethyl Esters (Lovaza) 1 Gm Capsule, 1 GM PO BID, CAP 01/13/16 Febuxostat* (Uloric*) 40 Mg Tablet, 40 MG PO DAILY, TAB 11/28/15 Discontinued Scripts Linezolid (Linezolid) 600 Mg Tablet, 600 MG PO BID for 10 Days, TAB Prov:HINA CASTILLO MD 04/04/16 Allergies Allergies: Coded Allergies: No Known Allergy (Unverified , 04/23/16) PMhx/Soc History of Surgery: No Anesthesia Reaction: No Hx Neurological Disorder: No Hx Respiratory Disorders: No Hx Cardiac Disorders: Yes (HTN) Hx Psychiatric Problems: Yes (anxiety) Hx Miscellaneous Medical Probl: Yes (kidney disease) Hx Alcohol Use: No Hx Substance Use: No Hx Tobacco Use: Yes Smoking Status: Current every day smoker Physical Exam Vitals Vital Signs Date Time Temp Pulse Resp B/P Pulse Ox O2 Delivery O2 Flow Rate FiO2 04/23/16 18:04 Nasal Cannula 3.0 04/23/16 17:58 98.3 121 21 154/68 95 04/23/16 17:55 Nasal Cannula 2 Physical Exam INITIAL VITAL SIGNS: Reviewed by me GENERAL: The patient is well developed and appropriate for usual state of health in no apparent distress HEENT: Pupils equal, round, and reactive to light. EOMI. There is no scleral icterus. NECK: C-spine is soft and supple, there is no meningismus. There is no cervical lymphadenopathy. LUNGS: Diffuse rhonchi throughout the lung rojo HEART: Tachycardic, no murmurs, clicks, rubs or gallops. ABDOMEN: Soft, non-tender, non-distended. There are bowel sounds in all four quadrants. No rebound or guarding. EXTREMITIES 2+ pitting edema to bilateral lower extremity no focal swelling or erythema. NEUROLOGICAL: The patient moves all four extremities with 5/5 strength. Cranial nerves II - XII are intact. Normal gait. Alert and oriented SKIN: There is no apparent rash or petechiae. HEME/LYMPHATIC: There is no evidence of excessive bruising or lymphedema. PSYCHIATRIC: The patient does not appear anxious or depressed. Result Diagram: 04/23/16 1756 04/23/16 1756 Results 24 hrs Laboratory Tests Test 04/23/16 17:56 Activated Partial Thromboplast Time 29.2Sec Anion Gap 17 Blood Morphology Comment Blood Urea Nitrogen 57mg/dl Calcium Level 8.5mg/dl Carbon Dioxide Level 29mmol/L Chloride Level 98mmol/L Creatine Kinase < 20IU/L Creatine Kinase Index Creatinine 6.48mg/dl Creatinine Kinase MB (Mass) 0.98ng/ml Eosinophils # 0.610^3/ul Eosinophils % 3.0% Glucose Level 120mg/dl Hematocrit 30.4% Hemoglobin 10.1g/dl INR International Normalized Ratio 1.07 Lymphocytes # 2.510^3/ul Lymphocytes % 13.0% Mean Corpuscular Hemoglobin 29.7pg Mean Corpuscular Hemoglobin Concent 33.1g/dl Mean Corpuscular Volume 89.6fl Mean Platelet Volume 7.2fl Monocytes # 0.910^3/ul Monocytes % 5.0% Neutrophils # 14.910^3/ul Neutrophils % 79.0% Platelet Count 59884^3/UL Potassium Level 3.6mmol/L Prothrombin Time 13.9Sec Prothrombin Time Ratio 1.1 Red Blood Count 3.3910^6/ul Red Cell Distribution Width 19.1% Sodium Level 140mmol/L Troponin I 0.047ng/ml White Blood Count 18.910^3/ul Current Medications Medications (Trade) Dose Ordered Sig/Bettina Route PRN Reason Start Time Stop Time Status Last Admin Dose Admin Lorazepam (Ativan) 2 mg STK-MED ONCE .ROUTE 04/23/16 17:46 04/23/16 17:47 DC Lorazepam (Ativan) 1 mg ONCE ONCE IM 04/23/16 18:00 04/23/16 18:01 DC 04/23/16 17:50 Procedures/MDM Chest X-ray 1V Interpreted by me: Soft Tissue: Pulmonary vascular congestion Bones: No acute abnormalities Mediastinum/Cardiac Silhouette/Lungs: [No acute abnormalities] EKG: Rate/Rhythm: Sinus tachycardia QRS, ST, T-waves: [No changes consistent w/ acute ischemia] Impression: [Sinus tachycardia EKG: #2 Rate/Rhythm: Sinus tachycardia QRS, ST, T-waves: [No changes consistent w/ acute ischemia] Impression: [Sinus tachycardia This 81-year-old male presents to the ER for evaluation of chest pain, shortness of breath and palpitations. When I evaluated him he did have coarse rhonchi throughout his lung rojo and was tachycardic. He was not hypoxic and is on 2 L of oxygen at home. This patient had lab work drawn an x-ray which does show pulmonary vascular congestion. This patient's symptoms could likely be due to fluid overload. I do feel this patient will benefit from inpatient hospitalization for dialysis, and a cardiac evaluation. I spoke to his primary care physician, Dr. Castillo who is okay with her plan of care for admission at this time. Departure Diagnosis: Primary Impression: Chest pain Additional Impressions: Shortness of breath Pulmonary vascular congestion Condition: Stable STEVEN FARR DO Apr 23, 2016 19:28
[2016-04-23] MEDS ORDERED: ONDANSETRON 4 MG INJ IV PRN (19:30)
[2016-04-23] MEDS ORDERED: ACETAMINOPHEN 325 MG TAB PO PRN (19:30)
--- NOTE | 2016-04-23 21:37 | CONS ---
Date/Time of Note Date/Time of Note DATE: 04/23/16 TIME: 21:37 Consultation Date/Type/Reason Admit Date/Time Past Surgical History Past Surgical Hx: angioplasty, coronary bypass surgery, endoscopy, other Social History Smoking Status: Current every day smoker Exam/Review of Systems Vital Signs Vitals Vital Signs Date Time Temp Pulse Resp B/P Pulse Ox O2 Delivery O2 Flow Rate FiO2 04/23/16 20:00 98.3 115 12 141/62 100 Nasal Cannula 1.0 Results Result Diagram: 04/23/16 1756 04/23/16 1756 Results 24 hrs Laboratory Tests Test 04/23/16 17:56 Activated Partial Thromboplast Time 29.2 Anion Gap 17 H Blood Morphology Comment Blood Urea Nitrogen 57 H Calcium Level 8.5 Carbon Dioxide Level 29 Chloride Level 98 Creatine Kinase < 20 L Creatine Kinase Index Creatinine 6.48 H Creatinine Kinase MB (Mass) 0.98 Eosinophils # 0.6 H Eosinophils % 3.0 Glucose Level 120 Hematocrit 30.4 L Hemoglobin 10.1 L INR International Normalized Ratio 1.07 Lymphocytes # 2.5 Lymphocytes % 13.0 L Mean Corpuscular Hemoglobin 29.7 Mean Corpuscular Hemoglobin Concent 33.1 Mean Corpuscular Volume 89.6 Mean Platelet Volume 7.2 L Monocytes # 0.9 Monocytes % 5.0 Neutrophils # 14.9 H Neutrophils % 79.0 H Platelet Count 279 # Potassium Level 3.6 Prothrombin Time 13.9 Prothrombin Time Ratio 1.1 Red Blood Count 3.39 L Red Cell Distribution Width 19.1 H Sodium Level 140 Troponin I 0.047 White Blood Count 18.9 #H ANDRE SMITH MD Apr 23, 2016 21:37
[2016-04-24] VITALS (15 sets, daily range): BP systolic 99–168; BP diastolic 62–85; PULSE 90–123; RESP 18–20; TEMP 98.6; Ht 160 cm; Wt 71.6 kg
[2016-04-24 06:19] LABS: CREATINE KINASE < 20 IU/L (23-200)
[2016-04-24 06:31] LABS: TROPONIN-I 0.047 ng/ml (0.00-0.12)
[2016-04-24 06:32] LABS: CK-MB 0.69 ng/ml (0.0-2.4)
[2016-04-24] MEDS: CLOPIDOGREL 75 MG TAB PO SCH (09:00)
[2016-04-24] MEDS: VALSARTAN 160 MG TAB PO SCH (09:00)
[2016-04-24] MEDS: DOCUSATE SODIUM 100 MG CAP PO SCH (09:00)
[2016-04-24] MEDS ORDERED: ACETAMINOPHEN 325 MG TAB PO PRN (09:00)
--- NOTE | 2016-04-24 09:15 | HP ---
Date/Time of Note Date/Time of Note DATE: 04/24/16 TIME: 09:10 Assessment/Plan VTE Prophylaxis VTE Prophylaxis Intervention: ambulation, anti-embolic stocking VTE Contraindication Reason: peripheral vascular disease Lines/Catheters IV Catheter Type (from Nrs): Saline Lock Urinary Cath still in place: No Reason Cath still needed: urinary retention Assessment/Plan Chief Complaint/Hosp Course 1. Respiratory distress. 2.. CHF exacerbation. 3. Chest pain-s/p 2 angiographies and stenting 4. End-stage renal disease. 5. Leukocytosis- got worse. 6. Diabetes type 2. 7. Osteoarthritis. 8. Anemia of chronic disease. 9. Status post multiple units of packed red blood cell transfusions. 10. Weight loss-more than 50lb in 8 months. 11. Hypertension-out of control. 12. Memory impairment. 13. Major depression. 14. Back pain. 15. Benign prostatic hypertrophy. 16. S/P left forearm a/v shunt placement for dialysis. 17. S/P right Jugular vein cannulation for dialysis 18. Hypoxemia with hypercapnia on home 02 and BIPAP. 19. Anxiety; borderline personality 20. Excessive thirst. 21. Constipation Problems: HPI/ROS Admit Date/Time Admit Date/Time ROS Constitutional: disoriented, nausea, poor po Eyes: visual change ENT: dysphagia Respiratory: cough, shortness of breath Cardiovascular: chest pain, edema, lightheadedness, orthopenea, palpitations, paroxysmal nocturnal dyspnea Gastrointestinal: decreased appetite, nausea Genitourinary: dysuria Musculoskeletal: back pain, bone/joint pain Skin: pruritis, rash Neurologic: confusion, dizziness, headache Endocrine: polydypsia Lymphatic: No adenopathy, No lymphadema, No no complaints, No other, No tender nodes Psychological: anxiety, confusion Immunologic: No immunodeficiency, No no complaints, No other, No pruritis, No rhinitis, No urticaria PMH/Family/Social Past Surgical History Past Surgical Hx: angioplasty, coronary bypass surgery, endoscopy, other Social History Smoking Status: Current every day smoker Exam/Review of Systems Vital Signs Vitals Vital Signs Date Time Temp Pulse Resp B/P Pulse Ox O2 Delivery O2 Flow Rate FiO2 04/24/16 09:01 117 04/24/16 08:12 97.6 19 167/76 98 04/24/16 07:40 Nasal Cannula 1.0 04/23/16 22:00 33 Exam Constitutional: alert, distress, oriented, well developed Psych: anxiety, confusion, depression Head: atraumatic, normocephalic Eyes: EOMI, PERRL ENMT: nl external ears & nose Neck: jvd, supple Respiratory: diminished breath sounds, normal air movement Cardiovascular: edema, nl pulses, systolic murmur Gastrointestinal: bowel sounds, distended, non-tender, soft Genitourinary - Male: CVA tenderness, nl penis, nl scrotum Musculoskeletal: joint tenderness, nl extremities to inspection, range of motion Extremities: edema, normal pulses Neurological: 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 [employer]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 II-XII intact, confused, numbness Skin: nl turgor Labs Result Diagram: 04/23/16 1756 04/23/16 175 Medications Medications Current Medications Acetaminophen (Tylenol Tab) 650 mg Q6H PRN PO PAIN AND OR ELEVATED TEMP; Start 04/24/16 at 09:00; Status UNV Clonidine HCl (Catapres-Tts 1 Patch) 0.2 patch ONCE ONCE TRANSDERM ; Start at 09:00; Stop 04/24/16 at 09:01; Status UNV Valsartan (Diovan) 320 mg DAILY PO ; Start 04/24/16 at 09:00; Status UNV Pantoprazole (Protonix Iv) 40 mg DAILY@06 IV ; Start 04/25/16 at 06:00; Status UNV Docusate Sodium (Colace) 100 mg DAILY PO ; Start 04/24/16 at 09:00; Status UNV Clopidogrel Bisulfate (plaVIX) 75 mg DAILY PO ; Start 04/24/16 at 09:00; Status UNV HINA CASTILLO MD Apr 24, 2016 09:15
[2016-04-24] MEDS ORDERED: CLONIDINE 0.1 MG/24 HR PATCH TRANSDERM ONE (10:00)
[2016-04-24] MEDS: PANTOPRAZOLE 40 MG INJ IV SCH (10:00)
[2016-04-24] MEDS: LEVOTHYROXINE 125 MCG TAB PO SCH (11:51)
[2016-04-24] MEDS ORDERED: SENNA TAB PO PRN (13:00)
[2016-04-24] MEDS: NIFEdipine (XL) 30 MG TAB PO SCH ×2 (13:00→21:00)
[2016-04-24] MEDS: ALBUTEROL 0.083% (NEB) 2.5 MG/3 ML AMP HHN SCH ×2 (14:00→20:07)
[2016-04-24] MEDS: SALMETEROL/FLUTICASONE 250/50 INHA INH SCH ×2 (14:00→21:30)
[2016-04-24] MEDS: IPRATROPIUM (NEB) 0.5 MG/2.5 ML AMP HHN SCH ×2 (14:00→20:07)
--- NOTE | 2016-04-24 15:37 | CONS ---
DATE OF ADMISSION: 04/23/2016 DATE OF CONSULTATION: 04/24/2016 Thank you very much for allowing me to evaluate this 81-year-old male admitted to the hospital with shortness of breath. HISTORICAL EVENTS: As you well know, this patient has been on dialysis for approximately 6 months. 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 It was thought not amenable to immunosuppressant therapy because of marked scarring and fibrosis. He has been adm itted here on multiple occasions for shortness of breath, this both related to congestive heart fail ure and interstitial lung disease. He was dialyzed for about only 15 to 30 minutes this morning whe n he noted increasing shortness of breath and was ultimately transported to [facility] ER f or evaluation. He presently denies any chest pain, nausea, vomiting, or abdominal pain. PAST MEDICAL HISTORY: 1. Chronic obstructive pulmonary disease and interstitial lung disease. 2. Diabetes. 3. 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 4. History of urinary tract infection, elevated white count secondary to the same. 5. Depression. 6. Benign prostatic hypertrophy. 7. History of osteoporosis. 8. 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 9. Hypertension. 10. Known coronary artery disease having a stent placed approximately 6 months ago (right coronary) . MEDICATIONS: 1. Tylenol. 2. Albuterol. 3. Aspirin. 4. Synthroid 125 mcg per day. 5. Valsartan 320 6. Protonix 40. PHYSICAL EXAMINATION: GENERAL: Reveals a cachectic male. VITAL SIGNS: BP 178/80, pulse 70, respirations are 20, temperature was 99.1. EYES: Extraocular muscles were full. NOSE, MOUTH, AND THROAT: Normal. NECK: Revealed no JVD. LUNGS: Basilar rales without wheezing or rhonchi. HEART: Rhythm regular. No third sound, I/ systolic murmur. No third or fourth sound. ABDOMEN: Nontender. Liver and spleen were not palpable. No masses or tenderness were noted. EXTREMITIES: No edema. Calves nontender. IMPRESSION: 1. Shortness of breath secondary to congestive heart failure and underlying chronic obstructive pul monary disease and interstitial lung disease. 2. Elevated white count noted prior. Will again be certain there is no ongoing urinary tract infect ion. 3. Chronic renal failure, has recurrent outpatient dialysis. 4. 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 Bone marrow obtained about 6 weeks ago revealed no abn ormalities. He will be dialyzed promptly, and I will follow with you. Dictated By: TRUE RANDALL/CAMILO Conf#: [id number] DID#: [id number]
[2016-04-24] MEDS: EPOETIN 10000 UNITS/1 ML INJ (ESRD) SC SCH (18:11)
[2016-04-24] MEDS: TAMSULOSIN (SR) 0.4 MG CAP PO SCH (21:29)
[2016-04-25] VITALS (17 sets, daily range): BP systolic 120–171; BP diastolic 55–76; PULSE 89–112; RESP 18–20
[2016-04-25] MEDS: IPRATROPIUM (NEB) 0.5 MG/2.5 ML AMP HHN SCH ×4 (02:29→13:39)
[2016-04-25] MEDS: LEVOTHYROXINE 125 MCG TAB PO SCH (06:43)
[2016-04-25] MEDS: PANTOPRAZOLE 40 MG INJ IV SCH (06:44)
[2016-04-25 06:48] LABS: BASOPHILS % 0.5 % (0.0-2.0); EOSINOPHILS # 0.3 10^3/ul (0.0-0.5); EOSINOPHILS % 3.9 % (0.0-7.0); HEMATOCRIT 25.3 % (42.0-52.0); HEMOGLOBIN 8.4 g/dl (14.0-18.0); LYMPHOCYTES # 1.6 10^3/ul (0.8-2.9); LYMPHOCYTES % 19.3 % (15.0-51.0); MEAN CORPUSCULAR HEMOGLOBIN 30.1 pg (29.0-33.0); MEAN CORPUSCULAR HGB CONC 33.2 g/dl (32.0-37.0); MEAN CORPUSCULAR VOLUME 90.7 fl (82.0-101.0); MEAN PLATELET VOLUME 6.7 fl (7.4-10.4); MONOCYTE # 0.7 10^3/ul (0.3-0.9); NEUTROPHIL # 5.8 10^3/ul (1.6-7.5); NEUTROPHILS % 68.3 % (39.0-77.0); PLATELET COUNT 242 10^3/UL (140-440); RED BLOOD COUNT 2.79 10^6/ul (4.70-6.10); RED CELL DISTRIBUTION WIDTH 18.7 % (11.5-14.5); UNCORRECTED WBC 8.5 10^3/ul (4.8-10.8); WHITE BLOOD COUNT 8.5 10^3/ul (4.8-10.8)
[2016-04-25 07:02] LABS: POTASSIUM 3.8 mmol/L (3.5-5.1)
[2016-04-25 07:04] LABS: CREATININE 5.36 mg/dl (0.61-1.24)
[2016-04-25 07:05] LABS: CALCIUM 7.9 mg/dl (8.4-10.2); PHOSPHORUS 3.5 mg/dl (2.5-4.9)
[2016-04-25 07:24] LABS: CONDITION 1; LH ANALYZER COMMENTS 1
[2016-04-25] MEDS: ALBUTEROL 0.083% (NEB) 2.5 MG/3 ML AMP HHN SCH ×3 (08:05→20:13)
[2016-04-25] MEDS: VALSARTAN 160 MG TAB PO SCH ×2 (09:00→09:45)
[2016-04-25] MEDS: NIFEdipine (XL) 30 MG TAB PO SCH ×3 (09:00→21:00)
[2016-04-25] MEDS: DOCUSATE SODIUM 100 MG CAP PO SCH (09:45)
[2016-04-25] MEDS: CLOPIDOGREL 75 MG TAB PO SCH (09:45)
[2016-04-25] MEDS: SALMETEROL/FLUTICASONE 250/50 INHA INH SCH ×2 (09:45→21:51)
--- NOTE | 2016-04-25 10:12 | CONS ---
Date/Time of Note Date/Time of Note DATE: 04/25/16 TIME: 10:10 Assessment/Plan Assessment/Plan Additional Assessment/Plan 1. CKD to be HD today 2. CHF is better, to UF again with HD today 3. BP control is not optimal, added coreg and po catapres 4. Anemia, will repeat cbc, if hct <26 will transfuse, stool ob ordered. Consultation Date/Type/Reason Admit Date/Time Apr 23, 2016 at 19:25 Initial Consult Date Detailed Summary Respiratory: No shortness of breath Cardiovascular: No chest pain Gastrointestinal: no complaints Genitourinary: no complaints Exam/Review of Systems Vital Signs Vitals Vital Signs Date Time Temp Pulse Resp B/P Pulse Ox O2 Delivery O2 Flow Rate FiO2 04/25/16 08:50 108 04/25/16 08:15 97 2.0 04/25/16 08:14 20 Nasal Cannula 04/25/16 07:38 98.2 171/69 04/23/16 22:00 33 Intake and Output 04/24/16 04/24/16 04/25/16 15:00 23:00 07:00 Intake Total 400 ml 550 ml 175 ml Output Total 2900 ml Balance -2500 ml 550 ml 175 ml Exam Neck: No jvd Respiratory: diminished breath sounds (rales at bases bilat) Cardiovascular: regular rate and rhythm Gastrointestinal: No distended, No tender Extremities: No edema Results Result Diagram: 04/25/16 0540 04/25/16 0540 Results 24 hrs Laboratory Tests Test 04/25/16 05:40 Anion Gap 16 Basophils # 0.0 Basophils % 0.5 Blood Morphology Comment Blood Urea Nitrogen 42 #H Calcium Level 7.9 L Carbon Dioxide Level 29 Chloride Level 100 Creatinine 5.36 H Eosinophils # 0.3 Eosinophils % 3.9 Glucose Level 115 Hematocrit 25.3 L Hemoglobin 8.4 L Lymphocytes # 1.6 Lymphocytes % 19.3 Mean Corpuscular Hemoglobin 30.1 Mean Corpuscular Hemoglobin Concent 33.2 Mean Corpuscular Volume 90.7 Mean Platelet Volume 6.7 L Monocytes # 0.7 Monocytes % 8.0 Neutrophils # 5.8 Neutrophils % 68.3 Nucleated Red Blood Cells # 0.0 Nucleated Red Blood Cells % 0.0 Phosphorus Level 3.5 Platelet Count 242 Potassium Level 3.8 Red Blood Count 2.79 L Red Cell Distribution Width 18.7 H Sodium Level 141 White Blood Count 8.5 # Medications Medications Current Medications Acetaminophen (Tylenol Tab) 650 mg Q6H PRN PO PAIN AND OR ELEVATED TEMP; Start 04/24/16 at 09:00 Valsartan (Diovan) 320 mg DAILY PO ; Start 04/24/16 at 09:00 Pantoprazole (Protonix Iv) 40 mg DAILY@06 IV Last administered on 04/25/16 06: 44; Admin Dose 40 MG; Start 04/24/16 at 10:00 Docusate Sodium (Colace) 100 mg DAILY PO Last administered on 04/25/16 09:45; Admin Dose 100 MG; Start 04/24/16 at 09:00 Clopidogrel Bisulfate (plaVIX) 75 mg DAILY PO Last administered on 04/25/16 09 :45; Admin Dose 75 MG; Start 04/24/16 at 09:00 Salmeterol Xinafoate/ Fluticasone (Advair 250/50 Diskus) 1 inh BID INH Last administered on 04/25/16 09:45; Admin Dose 1 INH; Start 04/24/16 at 14:00 Senna (Senokot) 1 tab DAILY PRN PO CONSTIPATION; Start 04/24/16 at 13:00 Tamsulosin HCl (Flomax) 0.4 mg HS PO Last administered on 04/24/16 21:29; Admin Dose 0.4 MG; Start 04/24/16 at 21:00 Nifedipine (Procardia Xl) 30 mg BID PO ; Start 04/24/16 at 13:00 Epoetin Jordon (Epogen (Esrd)) 10,000 units MoWeFr@17 SC Last administered on 18:11; Admin Dose 10,000 UNITS; Start 04/24/16 at 17:00 TRUE GTZ MD Apr 25, 2016 10:12
[2016-04-25 11:35] LABS: BASOPHILS % 0.2 % (0.0-2.0); EOSINOPHILS # 0.2 10^3/ul (0.0-0.5); EOSINOPHILS % 3.1 % (0.0-7.0); HEMOGLOBIN 8.5 g/dl (14.0-18.0); LYMPHOCYTES # 1.2 10^3/ul (0.8-2.9); LYMPHOCYTES % 14.7 % (15.0-51.0); MEAN CORPUSCULAR HEMOGLOBIN 29.6 pg (29.0-33.0); MEAN CORPUSCULAR HGB CONC 32.6 g/dl (32.0-37.0); MEAN CORPUSCULAR VOLUME 90.8 fl (82.0-101.0); MEAN PLATELET VOLUME 6.5 fl (7.4-10.4); MONOCYTE # 0.6 10^3/ul (0.3-0.9); MONOCYTES % 7.5 % (0.0-11.0); NEUTROPHIL # 5.9 10^3/ul (1.6-7.5); NEUTROPHILS % 74.5 % (39.0-77.0); PLATELET COUNT 217 10^3/UL (140-440); RED BLOOD COUNT 2.87 10^6/ul (4.70-6.10); RED CELL DISTRIBUTION WIDTH 18.6 % (11.5-14.5); UNCORRECTED WBC 7.9 10^3/ul (4.8-10.8); WHITE BLOOD COUNT 7.9 10^3/ul (4.8-10.8)
[2016-04-25 11:36] LABS: CONDITION 1; LH ANALYZER COMMENTS 1
[2016-04-25 13:08] LABS: ADD UMIC YES; URINE BILIRUBIN (Dip) NEGATIVE (NEGATIVE); URINE BLOOD (Dip) 3+ (NEGATIVE); URINE COLOR LT. YELLOW (YELLOW); URINE GLUCOSE (Dip) NEGATIVE (NEGATIVE); URINE KETONES (Dip) NEGATIVE (NEGATIVE); URINE LEUKOCYTE ESTERASE (Dip) NEGATIVE (NEGATIVE); URINE NITRITE (Dip) NEGATIVE (NEGATIVE); URINE TOTAL PROTEIN (Dip) 4+ (NEGATIVE); URINE UROBILINOGEN (Dip) 0.2 E.U./dL (0.1-1.0)
[2016-04-25 13:27] LABS: BACTERIA,URINE FEW; SQUAMOUS EPITHELIAL CELL,UR FEW; URINE RBCS >50 /HPF (0)
--- NOTE | 2016-04-25 18:01 | CONS ---
Date/Time of Note Date/Time of Note DATE: 04/25/16 TIME: 18:01 Consultation Date/Type/Reason Admit Date/Time Apr 23, 2016 at 19:25 Initial Consult Date Exam/Review of Systems Vital Signs Vitals Vital Signs Date Time Temp Pulse Resp B/P Pulse Ox O2 Delivery O2 Flow Rate FiO2 04/25/16 17:15 92 04/25/16 16:30 18 04/25/16 15:48 98.4 127/57 99 04/25/16 13:43 2.0 04/25/16 13:41 Nasal Cannula 04/23/16 22:00 33 Intake and Output 04/24/16 04/24/16 04/25/16 15:00 23:00 07:00 Intake Total 400 ml 550 ml 175 ml Output Total 2900 ml Balance -2500 ml 550 ml 175 ml Results Result Diagram: 04/25/16 1117 04/25/16 0540 Results 24 hrs Laboratory Tests Test 04/25/16 05:40 04/25/16 07:46 04/25/16 11:17 Anion Gap 16 Basophils # 0.0 0.0 Basophils % 0.5 0.2 Blood Morphology Comment Blood Urea Nitrogen 42 #H Calcium Level 7.9 L Carbon Dioxide Level 29 Chloride Level 100 Creatinine 5.36 H Eosinophils # 0.3 0.2 Eosinophils % 3.9 3.1 Glucose Level 115 Hematocrit 25.3 L 26.0 L Hemoglobin 8.4 L 8.5 L Lymphocytes # 1.6 1.2 Lymphocytes % 19.3 14.7 L Mean Corpuscular Hemoglobin 30.1 29.6 Mean Corpuscular Hemoglobin Concent 33.2 32.6 Mean Corpuscular Volume 90.7 90.8 Mean Platelet Volume 6.7 L 6.5 L Monocytes # 0.7 0.6 Monocytes % 8.0 7.5 Neutrophils # 5.8 5.9 Neutrophils % 68.3 74.5 Nucleated Red Blood Cells # 0.0 0.0 Nucleated Red Blood Cells % 0.0 0.0 Phosphorus Level 3.5 Platelet Count 242 217 Potassium Level 3.8 Red Blood Count 2.79 L 2.87 L Red Cell Distribution Width 18.7 H 18.6 H Sodium Level 141 White Blood Count 8.5 # 7.9 Urine Bacteria FEW Urine Bilirubin NEGATIVE Urine Clarity CLEAR Urine Color LT. YELLOW Urine Glucose NEGATIVE Urine Hemoglobin 3+ H Urine Ketones NEGATIVE Urine Leukocyte Esterase NEGATIVE Urine Microscopic RBC >50 Urine Microscopic WBC 10-25 Urine Nitrite NEGATIVE Urine Specific [place] 1.015 Urine Squamous Epithelial Cells FEW Urine Total Protein 4+ H Urine Urobilinogen 0.2 E.U./dL Urine Yeast FEW Urine pH 7.0 Medications Medications Current Medications Acetaminophen (Tylenol Tab) 650 mg Q6H PRN PO PAIN AND OR ELEVATED TEMP; Start 04/24/16 at 09:00 Valsartan (Diovan) 320 mg DAILY PO ; Start 04/24/16 at 09:00 Pantoprazole (Protonix Iv) 40 mg DAILY@06 IV Last administered on 04/25/16 06: 44; Admin Dose 40 MG; Start 04/24/16 at 10:00 Docusate Sodium (Colace) 100 mg DAILY PO Last administered on 04/25/16 09:45; Admin Dose 100 MG; Start 04/24/16 at 09:00 Clopidogrel Bisulfate (plaVIX) 75 mg DAILY PO Last administered on 04/25/16 09 :45; Admin Dose 75 MG; Start 04/24/16 at 09:00 Salmeterol Xinafoate/ Fluticasone (Advair 250/50 Diskus) 1 inh BID INH Last administered on 04/25/16 09:45; Admin Dose 1 INH; Start 04/24/16 at 14:00 Senna (Senokot) 1 tab DAILY PRN PO CONSTIPATION; Start 04/24/16 at 13:00 Tamsulosin HCl (Flomax) 0.4 mg HS PO Last administered on 04/24/16 21:29; Admin Dose 0.4 MG; Start 04/24/16 at 21:00 Nifedipine (Procardia Xl) 30 mg BID PO ; Start 04/24/16 at 13:00 Epoetin Jordon (Epogen (Esrd)) 10,000 units MoWeFr@17 SC Last administered on 18:11; Admin Dose 10,000 UNITS; Start 04/24/16 at 17:00 Carvedilol (Coreg) 12.5 mg BID PO ; Start 04/25/16 at 10:30 Clonidine (Catapres) 0.1 mg TID PO ; Start 04/25/16 at 13:00 ANDRE SMITH MD Apr 25, 2016 18:01
--- NOTE | 2016-04-25 18:54 | PN ---
Date/Time of Note Date/Time of Note DATE: 04/25/16 TIME: 18:49 Assessment/Plan VTE Prophylaxis VTE Prophylaxis Intervention: ambulation, anti-embolic stocking VTE Contraindication Reason: peripheral vascular disease Lines/Catheters IV Catheter Type (from Nrsg): Peripheral IV (DIALYSIS CATH) Central line still needed: No Urinary Cath still in place: No Assessment/Plan Chief Complaint/Hosp Course 1. Respiratory distress. 2.. CHF exacerbation. 3. Chest pain-s/p 2 angiographies and stenting 4. End-stage renal disease. 5. Leukocytosis- got worse. 6. Diabetes type 2. 7. Osteoarthritis. 8. Anemia of chronic disease. 9. Status post multiple units of packed red blood cell transfusions. 10. Weight loss-more than 50lb in 8 months. 11. Hypertension-out of control. 12. Memory impairment. 13. Major depression. 14. Back pain. 15. Benign prostatic hypertrophy. 16. S/P left forearm a/v shunt placement for dialysis. 17. S/P right Jugular vein cannulation for dialysis 18. Hypoxemia with hypercapnia on home 02 and BIPAP. 19. Anxiety; borderline personality 20. Excessive thirst. 21. Constipation Problems: Subjective 24 Hr Interval Summary Free Text/Dictation sob improved about 50%.I feel better now. No fever. Positive for chills. Constitutional: chills, improved, poor po, requiring IVF, requiring O2, No diaphoresis, No disoriented, No febrile, No no complaints, No other Eyes: pain, visual change, No discharge, No no complaints, No other, No redness ENT: congestion, sore throat, No bleeding, No discharge, No dysphagia, No no complaints, No other, No pain Respiratory: cough, pleuritic pain, shortness of breath, No no complaints, No other, No pain, No sputum, No wheezing Cardiovascular: chest pain, lightheadedness, orthopenea, palpitations, paroxysmal nocturnal dyspnea, No edema, No no complaints, No other Gastrointestinal: constipation, decreased appetite, flatus, passing stool, No blood, No diarrhea, No nausea, No no complaints, No other, No pain, No vomiting Genitourinary: dysuria, flank pain, No bleeding, No discharge, No hematuria, No no complaints, No other Musculoskeletal: back pain, bone/joint pain, neck pain, No no complaints, No other, No restricted range of motion, No swelling Skin: pruritis, No bruising, No erythema, No laceration, No no complaints, No other, No rash , No skin lesions Neurologic: confusion, dizziness, No focal-weakness, No headache, No no complaints, No other, No seizure, No syncope Endocrine: No dry skin, No no complaints, No other, No polydypsia, No polyuria , No temp intolerance Lymphatic: No adenopathy, No lymphadema, No no complaints, No other, No tender nodes Psychological: anxiety, depression, other (forgetfulness.) Exam/Review of Systems Vital Signs Vitals Vital Signs Date Time Temp Pulse Resp B/P Pulse Ox O2 Delivery O2 Flow Rate FiO2 04/25/16 18:02 2.0 04/25/16 17:15 92 04/25/16 16:30 18 04/25/16 15:48 98.4 127/57 99 04/25/16 13:41 Nasal Cannula 04/23/16 22:00 33 Intake and Output 04/24/16 04/24/16 04/25/16 15:00 23:00 07:00 Intake Total 400 ml 550 ml 175 ml Output Total 2900 ml Balance -2500 ml 550 ml 175 ml Exam Constitutional: alert, frail, oriented, No distress, No non-verbal, No obese, No other, No well developed Psych: anxiety, confusion, depression, No nl mood/affect, No no complaints, No other, No suicidal Head: atraumatic, No hematomas, No lacerations, No normocephalic, No other Eyes: EOMI, PERRL, nl lids, No fundi, disc, No icteric, No nl conjunctiva, No nl sclera, No other ENMT: nl nasal mucosa & septum, No intubated, No mucosa pink and moist, No nl external ears & nose, No nl lips & teeth, No other, No tympanic membranes Neck: bruits, jvd, nuchal rigidity, No masses, No non-tender, No other, No supple, No thyromegaly Respiratory: congested cough, intercostal retraction, No clear to auscultation, No crackles/rales, No diminished breath sounds, No labored breathing, No normal air movement, No other, No respirations, No tactile fremitus, No wheezing Cardiovascular: bruits, systolic murmur, No S3, No S4, No diastolic murmur, No edema, No gallop, No irregular rhythm, No jugular venous distention (JVD), No murmurs/extra sounds, No nl pulses, No other, No regular rate and rhythm, No rub Gastrointestinal: ascites, distended, No bowel sounds, No firm, No hepatomegaly, No mass, No nl liver, spleen, No non-tender, No other, No rebound or guarding, No soft, No splenomegaly, No surgical scars, No tender Genitourinary - Male: CVA tenderness, nl penis, nl scrotum, No discharge, No other Musculoskeletal: joint tenderness, muscle tone, muscle weakness, nl gait and stance, No nl extremities to inspection, No other, No range of motion, No spine non- tender, No swelling Extremities: calf tenderness, No clubbing, No cyanosis, No edema, No normal pulses, No other, No palpable cord, No pitting pedal edema, No tenderness Neurological: HR OPERATIONS ADVISOR II-XII intact (decrfeased hearing.), DTR's symmetric, nl mental status (depressed, forgetful.), nl speech, numbness, No confused, No focal weakness, No lethargic, No nl strength, No other, No reflexes, No unresponsive Skin: No diaphoresis, No ecchymosis, No laceration, No nl turgor, No other, No puncture, No rash or lesions Lymph: No enlarged, No nl lymph nodes, No nontender, No other Results Result Diagram: 04/25/16 1117 04/25/16 0540 Results 24 hrs Laboratory Tests Test 04/25/16 05:40 04/25/16 07:46 04/25/16 11:17 Anion Gap 16 Basophils # 0.0 0.0 Basophils % 0.5 0.2 Blood Morphology Comment Blood Urea Nitrogen 42 #H Calcium Level 7.9 L Carbon Dioxide Level 29 Chloride Level 100 Creatinine 5.36 H Eosinophils # 0.3 0.2 Eosinophils % 3.9 3.1 Glucose Level 115 Hematocrit 25.3 L 26.0 L Hemoglobin 8.4 L 8.5 L Lymphocytes # 1.6 1.2 Lymphocytes % 19.3 14.7 L Mean Corpuscular Hemoglobin 30.1 29.6 Mean Corpuscular Hemoglobin Concent 33.2 32.6 Mean Corpuscular Volume 90.7 90.8 Mean Platelet Volume 6.7 L 6.5 L Monocytes # 0.7 0.6 Monocytes % 8.0 7.5 Neutrophils # 5.8 5.9 Neutrophils % 68.3 74.5 Nucleated Red Blood Cells # 0.0 0.0 Nucleated Red Blood Cells % 0.0 0.0 Phosphorus Level 3.5 Platelet Count 242 217 Potassium Level 3.8 Red Blood Count 2.79 L 2.87 L Red Cell Distribution Width 18.7 H 18.6 H Sodium Level 141 White Blood Count 8.5 # 7.9 Urine Bacteria FEW Urine Bilirubin NEGATIVE Urine Clarity CLEAR Urine Color LT. YELLOW Urine Glucose NEGATIVE Urine Hemoglobin 3+ H Urine Ketones NEGATIVE Urine Leukocyte Esterase NEGATIVE Urine Microscopic RBC >50 Urine Microscopic WBC 10-25 Urine Nitrite NEGATIVE Urine Specific [place] 1.015 Urine Squamous Epithelial Cells FEW Urine Total Protein 4+ H Urine Urobilinogen 0.2 E.U./dL Urine Yeast FEW Urine pH 7.0 Medications Medications Current Medications Acetaminophen (Tylenol Tab) 650 mg Q6H PRN PO PAIN AND OR ELEVATED TEMP; Start 04/24/16 at 09:00 Valsartan (Diovan) 320 mg DAILY PO ; Start 04/24/16 at 09:00 Pantoprazole (Protonix Iv) 40 mg DAILY@06 IV Last administered on 04/25/16 06: 44; Admin Dose 40 MG; Start 04/24/16 at 10:00 Docusate Sodium (Colace) 100 mg DAILY PO Last administered on 04/25/16 09:45; Admin Dose 100 MG; Start 04/24/16 at 09:00 Clopidogrel Bisulfate (plaVIX) 75 mg DAILY PO Last administered on 04/25/16 09 :45; Admin Dose 75 MG; Start 04/24/16 at 09:00 Salmeterol Xinafoate/ Fluticasone (Advair 250/50 Diskus) 1 inh BID INH Last administered on 04/25/16 09:45; Admin Dose 1 INH; Start 04/24/16 at 14:00 Senna (Senokot) 1 tab DAILY PRN PO CONSTIPATION; Start 04/24/16 at 13:00 Tamsulosin HCl (Flomax) 0.4 mg HS PO Last administered on 04/24/16 21:29; Admin Dose 0.4 MG; Start 04/24/16 at 21:00 Nifedipine (Procardia Xl) 30 mg BID PO ; Start 04/24/16 at 13:00 Epoetin Jordon (Epogen (Esrd)) 10,000 units MoWeFr@17 SC Last administered on t 18:11; Admin Dose 10,000 UNITS; Start 04/24/16 at 17:00 Carvedilol (Coreg) 12.5 mg BID PO ; Start 04/25/16 at 10:30 Clonidine (Catapres) 0.1 mg TID PO ; Start 04/25/16 at 13:00 HINA CASTILLO MD Apr 25, 2016 18:53
[2016-04-25] MEDS: TAMSULOSIN (SR) 0.4 MG CAP PO SCH (21:00)
[2016-04-26] VITALS (16 sets, daily range): BP systolic 108–215; BP diastolic 56–91; PULSE 77–131; RESP 18–20
[2016-04-26] MEDS: IPRATROPIUM (NEB) 0.5 MG/2.5 ML AMP HHN SCH ×4 (01:49→19:32)
[2016-04-26] MEDS: PANTOPRAZOLE 40 MG INJ IV SCH (06:55)
[2016-04-26] MEDS: LEVOTHYROXINE 125 MCG TAB PO SCH (07:08)
[2016-04-26] MEDS: SALMETEROL/FLUTICASONE 250/50 INHA INH SCH (09:00)
[2016-04-26] MEDS: NIFEdipine (XL) 30 MG TAB PO SCH ×2 (09:00→19:19)
[2016-04-26] MEDS: DOCUSATE SODIUM 100 MG CAP PO SCH (09:00)
[2016-04-26] MEDS: VALSARTAN 160 MG TAB PO SCH (09:00)
[2016-04-26] MEDS: CLOPIDOGREL 75 MG TAB PO SCH (09:00)
[2016-04-26] MEDS: ALBUTEROL 0.083% (NEB) 2.5 MG/3 ML AMP HHN SCH ×3 (09:25→19:32)
--- NOTE | 2016-04-26 11:29 | CONS ---
Date/Time of Note Date/Time of Note DATE: 04/26/16 TIME: 11:24 Assessment/Plan Assessment/Plan Additional Assessment/Plan 1. CKD, with next HD scheduled tomm 2. Anemia, stable 3. CHF, reasonably compensated and interstitial lung dz Consultation Date/Type/Reason Admit Date/Time Apr 23, 2016 at 19:25 Detailed Summary Respiratory: No cough, No shortness of breath Cardiovascular: No chest pain Gastrointestinal: no complaints Genitourinary: no complaints Exam/Review of Systems Vital Signs Vitals Vital Signs Date Time Temp Pulse Resp B/P Pulse Ox O2 Delivery O2 Flow Rate FiO2 04/26/16 10:46 110 04/26/16 09:26 18 98 Nasal Cannula 2.0 04/26/16 07:51 98.2 186/86 04/23/16 22:00 33 Intake and Output 04/25/16 04/25/16 04/26/16 15:00 23:00 07:00 Intake Total 1370 ml Output Total 2580 ml Balance -1210 ml Exam Neck: jvd Respiratory: diminished breath sounds (and same basilar rales bilat) Cardiovascular: regular rate and rhythm Gastrointestinal: soft Extremities: No edema Results Result Diagram: 04/25/16 1117 04/25/16 0540 Medications Medications Current Medications Acetaminophen (Tylenol Tab) 650 mg Q6H PRN PO PAIN AND OR ELEVATED TEMP; Start 04/24/16 at 09:00 Valsartan (Diovan) 320 mg DAILY PO ; Start 04/24/16 at 09:00 Pantoprazole (Protonix Iv) 40 mg DAILY@06 IV Last administered on 04/26/16 06: 55; Admin Dose 40 MG; Start 04/24/16 at 10:00 Docusate Sodium (Colace) 100 mg DAILY PO Last administered on 04/25/16 09:45; Admin Dose 100 MG; Start 04/24/16 at 09:00 Clopidogrel Bisulfate (plaVIX) 75 mg DAILY PO Last administered on 04/25/16 09 :45; Admin Dose 75 MG; Start 04/24/16 at 09:00 Salmeterol Xinafoate/ Fluticasone (Advair 250/50 Diskus) 1 inh BID INH Last administered on 04/25/16 21:51; Admin Dose 1 INH; Start 04/24/16 at 14:00 Senna (Senokot) 1 tab DAILY PRN PO CONSTIPATION; Start 04/24/16 at 13:00 Tamsulosin HCl (Flomax) 0.4 mg HS PO Last administered on 04/24/16 21:29; Admin Dose 0.4 MG; Start 04/24/16 at 21:00 Nifedipine (Procardia Xl) 30 mg BID PO ; Start 04/24/16 at 13:00 Epoetin Jordon (Epogen (Esrd)) 10,000 units MoWeFr@17 SC Last administered on 18:11; Admin Dose 10,000 UNITS; Start 04/24/16 at 17:00 Carvedilol (Coreg) 12.5 mg BID PO ; Start 04/25/16 at 10:30 Clonidine (Catapres) 0.1 mg TID PO ; Start 04/25/16 at 13:00 TRUE GTZ MD Apr 26, 2016 11:28
[2016-04-26] MEDS: MINOXIDIL 2.5 MG TAB PO SCH ×2 (11:41→22:01)
--- NOTE | 2016-04-26 13:36 | CONS ---
Date/Time of Note Date/Time of Note DATE: 04/26/16 TIME: 13:35 Consultation Date/Type/Reason Admit Date/Time Apr 23, 2016 at 19:25 Exam/Review of Systems Vital Signs Vitals Vital Signs Date Time Temp Pulse Resp B/P Pulse Ox O2 Delivery O2 Flow Rate FiO2 04/26/16 12:20 89 04/26/16 11:47 98.2 18 175/77 95 04/26/16 09:26 Nasal Cannula 2.0 04/23/16 22:00 33 Intake and Output 04/25/16 04/25/16 04/26/16 15:00 23:00 07:00 Intake Total 1370 ml Output Total 2580 ml Balance -1210 ml Results Result Diagram: 04/25/16 1117 04/25/16 0540 Medications Medications Current Medications Acetaminophen (Tylenol Tab) 650 mg Q6H PRN PO PAIN AND OR ELEVATED TEMP; Start 04/24/16 at 09:00 Valsartan (Diovan) 320 mg DAILY PO ; Start 04/24/16 at 09:00 Pantoprazole (Protonix Iv) 40 mg DAILY@06 IV Last administered on 04/26/16 06: 55; Admin Dose 40 MG; Start 04/24/16 at 10:00 Docusate Sodium (Colace) 100 mg DAILY PO Last administered on 04/25/16 09:45; Admin Dose 100 MG; Start 04/24/16 at 09:00 Clopidogrel Bisulfate (plaVIX) 75 mg DAILY PO Last administered on 04/25/16 09 :45; Admin Dose 75 MG; Start 04/24/16 at 09:00 Salmeterol Xinafoate/ Fluticasone (Advair 250/50 Diskus) 1 inh BID INH Last administered on 04/25/16 21:51; Admin Dose 1 INH; Start 04/24/16 at 14:00 Senna (Senokot) 1 tab DAILY PRN PO CONSTIPATION; Start 04/24/16 at 13:00 Tamsulosin HCl (Flomax) 0.4 mg HS PO Last administered on 04/24/16 21:29; Admin Dose 0.4 MG; Start 04/24/16 at 21:00 Nifedipine (Procardia Xl) 30 mg BID PO ; Start 04/24/16 at 13:00 Epoetin Jordon (Epogen (Esrd)) 10,000 units MoWeFr@17 SC Last administered on t 18:11; Admin Dose 10,000 UNITS; Start 04/24/16 at 17:00 Carvedilol (Coreg) 12.5 mg BID PO ; Start 04/25/16 at 10:30 Clonidine (Catapres) 0.1 mg TID PO ; Start 04/25/16 at 13:00 Minoxidil (Loniten) 2.5 mg BID PO ; Start 04/26/16 at 12:30 ANDRE SMITH MD Apr 26, 2016 13:35
--- NOTE | 2016-04-26 19:58 | PN ---
Date/Time of Note Date/Time of Note DATE: 04/26/16 TIME: 19:52 Assessment/Plan VTE Prophylaxis VTE Prophylaxis Intervention: ambulation, anti-embolic stocking VTE Contraindication Reason: peripheral vascular disease Lines/Catheters IV Catheter Type (from Nrsg): Saline Lock Central line still needed: No Urinary Cath still in place: No Assessment/Plan Chief Complaint/Hosp Course 1. Respiratory distress-getting worse. 2.. CHF exacerbation-improving. 3. Chest pain-s/p 2 angiographies and stenting 4. End-stage renal disease. 5. Leukocytosis- got worse. 6. Diabetes type 2. 7. Osteoarthritis. 8. Anemia of chronic disease. 9. Status post multiple units of packed red blood cell transfusions. 10. Weight loss-more than 50lb in 8 months. 11. Hypertension-out of control. 12. Memory impairment. 13. Major depression. 14. Back pain. 15. Benign prostatic hypertrophy. 16. S/P left forearm a/v shunt placement for dialysis. 17. S/P right Jugular vein cannulation for dialysis 18. Hypoxemia with hypercapnia on home 02 and BIPAP. 19. Anxiety; borderline personality 20. Excessive thirst. 21. Constipation with increased flatulence. Problems: Cont'd Hospitalization Reason: cont. management. Subjective 24 Hr Interval Summary Free Text/Dictation Worsening of sob. I can't lay down. Now I am suffocating. Constitutional: chills, diaphoresis, disoriented, poor po, requiring O2, No febrile, No improved, No no complaints, No other, No requiring IVF Eyes: No discharge, No no complaints, No other, No pain, No redness, No visual change ENT: No bleeding, No congestion, No discharge, No dysphagia, No no complaints, No other, No pain, No sore throat Respiratory: cough, pain, pleuritic pain, shortness of breath, wheezing, No no complaints, No other, No sputum Cardiovascular: chest pain, lightheadedness, paroxysmal nocturnal dyspnea Gastrointestinal: constipation, decreased appetite, flatus, pain, passing stool , No blood, No diarrhea, No nausea, No no complaints, No other, No vomiting Genitourinary: dysuria, flank pain, No bleeding, No discharge, No hematuria, No no complaints, No other Musculoskeletal: back pain, bone/joint pain, neck pain, No no complaints, No other, No restricted range of motion, No swelling Skin: pruritis, No bruising, No erythema, No laceration, No no complaints, No other, No rash , No skin lesions Neurologic: confusion, dizziness, other (on and off forgetful.), No focal-weakness, No headache, No no complaints, No seizure, No syncope Endocrine: dry skin, polydypsia, No no complaints, No other, No polyuria, No temp intolerance Psychological: anxiety, confusion, depression, No nl mood/affect, No no complaints, No other, No suicidal Exam/Review of Systems Vital Signs Vitals Vital Signs Date Time Temp Pulse Resp B/P Pulse Ox O2 Delivery O2 Flow Rate FiO2 04/26/16 19:34 100 2.0 04/26/16 19:34 100 20 Nasal Cannula 04/26/16 19:15 189/89 04/26/16 15:53 98.2 04/23/16 22:00 33 Intake and Output 04/25/16 04/25/16 04/26/16 15:00 23:00 07:00 Intake Total 1370 ml Output Total 2580 ml Balance -1210 ml Exam Constitutional: alert, distress, oriented, other (on and off is becoming hostile with using bad words,blkaming, expressing dissatisfaction and getting even more angry.) Psych: anxiety, confusion, No depression, No nl mood/affect, No no complaints, No other, No suicidal Head: No atraumatic, No hematomas, No lacerations, No normocephalic, No other Eyes: EOMI, PERRL, No fundi, disc, No icteric, No nl conjunctiva, No nl lids, No nl sclera, No other ENMT: No intubated, No mucosa pink and moist, No nl external ears & nose, No nl lips & teeth, No nl nasal mucosa & septum, No other, No tympanic membranes Neck: bruits, jvd, No masses, No non-tender, No nuchal rigidity, No other, No supple, No thyromegaly Respiratory: congested cough, diminished breath sounds, respirations, wheezing , No clear to auscultation, No crackles/rales, No intercostal retraction, No labored breathing, No normal air movement, No other, No tactile fremitus Cardiovascular: bruits, No S3, No S4, No diastolic murmur, No edema, No gallop, No irregular rhythm, No jugular venous distention (JVD), No murmurs/extra sounds, No nl pulses, No other, No regular rate and rhythm, No rub, No systolic murmur Gastrointestinal: bowel sounds, distended (painful epigastrum.), soft, No ascites, No firm, No hepatomegaly, No mass, No nl liver, spleen, No non- tender, No other, No rebound or guarding, No splenomegaly, No surgical scars, No tender Genitourinary - Male: No CVA tenderness, No discharge, No nl penis, No nl scrotum, No other Musculoskeletal: joint tenderness, muscle tone, muscle weakness, No nl extremities to inspection, No nl gait and stance, No other, No range of motion, No spine non-tender, No swelling 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, confused, numbness, reflexes Results Result Diagram: 04/25/16 1117 04/25/16 0540 Medications Medications Current Medications Acetaminophen (Tylenol Tab) 650 mg Q6H PRN PO PAIN AND OR ELEVATED TEMP; Start 04/24/16 at 09:00 Valsartan (Diovan) 320 mg DAILY PO ; Start 04/24/16 at 09:00 Pantoprazole (Protonix Iv) 40 mg DAILY@06 IV Last administered on 04/26/16 06: 55; Admin Dose 40 MG; Start 04/24/16 at 10:00 Docusate Sodium (Colace) 100 mg DAILY PO Last administered on 04/25/16 09:45; Admin Dose 100 MG; Start 04/24/16 at 09:00 Clopidogrel Bisulfate (plaVIX) 75 mg DAILY PO Last administered on 04/25/16 09 :45; Admin Dose 75 MG; Start 04/24/16 at 09:00 Salmeterol Xinafoate/ Fluticasone (Advair 250/50 Diskus) 1 inh BID INH Last administered on 04/25/16 21:51; Admin Dose 1 INH; Start 04/24/16 at 14:00 Senna (Senokot) 1 tab DAILY PRN PO CONSTIPATION; Start 04/24/16 at 13:00 Tamsulosin HCl (Flomax) 0.4 mg HS PO Last administered on 04/24/16 21:29; Admin Dose 0.4 MG; Start 04/24/16 at 21:00 Nifedipine (Procardia Xl) 30 mg BID PO Last administered on 04/26/16 19:19; Admin Dose 30 MG; Start 04/24/16 at 13:00 Epoetin [place] (Epogen (Esrd)) 10,000 units MoWeFr@17 SC Last administered on 18:11; Admin Dose 10,000 UNITS; Start 04/24/16 at 17:00 Carvedilol (Coreg) 12.5 mg BID PO Last administered on 04/26/16 15:43; Admin Dose 12.5 MG; Start 04/25/16 at 10:30 Clonidine (Catapres) 0.1 mg TID PO Last administered on 04/26/16 15:43; Admin Dose 0.1 MG; Start 04/25/16 at 13:00 Minoxidil (Loniten) 2.5 mg BID PO ; Start 04/26/16 at 12:30 HINA CASTILLO MD Apr 26, 2016 19:58
[2016-04-26] MEDS: TAMSULOSIN (SR) 0.4 MG CAP PO SCH (22:01)
[2016-04-26] MEDS: SALMETEROL/FLUTICASONE 500/50 INHA INH SCH (22:02)
[2016-04-26] MEDS: TIOTROPIUM 18 MCG CAPSULE INHA DEV INH SCH (22:02)
[2016-04-27] VITALS (19 sets, daily range): BP systolic 121–190; BP diastolic 63–95; PULSE 73–98; RESP 16–20
[2016-04-27] MEDS: IPRATROPIUM (NEB) 0.5 MG/2.5 ML AMP HHN SCH ×4 (01:19→20:00)
[2016-04-27] MEDS: PANTOPRAZOLE 40 MG INJ IV SCH (06:16)
[2016-04-27] MEDS: LEVOTHYROXINE 125 MCG TAB PO SCH (06:17)
[2016-04-27 08:12] LABS: POTASSIUM 4.3 mmol/L (3.5-5.1)
[2016-04-27 08:15] LABS: CREATININE 5.92 mg/dl (0.61-1.24)
[2016-04-27 08:16] LABS: CALCIUM 8.6 mg/dl (8.4-10.2)
[2016-04-27] MEDS: ALBUTEROL 0.083% (NEB) 2.5 MG/3 ML AMP HHN SCH ×3 (08:17→20:00)
[2016-04-27 08:20] LABS: BASOPHIL # 0.1 10^3/ul (0.0-0.1); BASOPHILS % 0.6 % (0.0-2.0); EOSINOPHILS # 0.3 10^3/ul (0.0-0.5); EOSINOPHILS % 3.2 % (0.0-7.0); HEMATOCRIT 28.2 % (42.0-52.0); HEMOGLOBIN 9.2 g/dl (14.0-18.0); LYMPHOCYTES # 1.6 10^3/ul (0.8-2.9); LYMPHOCYTES % 18.6 % (15.0-51.0); MEAN CORPUSCULAR HEMOGLOBIN 29.5 pg (29.0-33.0); MEAN CORPUSCULAR HGB CONC 32.5 g/dl (32.0-37.0); MEAN CORPUSCULAR VOLUME 90.7 fl (82.0-101.0); MEAN PLATELET VOLUME 6.9 fl (7.4-10.4); MONOCYTE # 0.6 10^3/ul (0.3-0.9); MONOCYTES % 7.2 % (0.0-11.0); NEUTROPHIL # 6.2 10^3/ul (1.6-7.5); NEUTROPHILS % 70.4 % (39.0-77.0); PLATELET COUNT 261 10^3/UL (140-440); RED BLOOD COUNT 3.11 10^6/ul (4.70-6.10); RED CELL DISTRIBUTION WIDTH 17.3 % (11.5-14.5); UNCORRECTED WBC 8.8 10^3/ul (4.8-10.8); WHITE BLOOD COUNT 8.8 10^3/ul (4.8-10.8)
[2016-04-27] MEDS: DOCUSATE SODIUM 100 MG CAP PO SCH (08:33)
[2016-04-27] MEDS: CREON (12k-38k-60k) 1 CAP PO SCH ×3 (08:33→17:47)
[2016-04-27 08:34] LABS: CONDITION 1; LH ANALYZER COMMENTS 1
[2016-04-27] MEDS: SALMETEROL/FLUTICASONE 500/50 INHA INH SCH ×2 (08:34→22:50)
[2016-04-27] MEDS: TIOTROPIUM 18 MCG CAPSULE INHA DEV INH SCH ×2 (08:35→22:50)
[2016-04-27] MEDS: VALSARTAN 160 MG TAB PO SCH (08:36)
[2016-04-27] MEDS: NIFEdipine (XL) 30 MG TAB PO SCH ×2 (08:36→21:00)
[2016-04-27] MEDS: MINOXIDIL 2.5 MG TAB PO SCH ×2 (08:36→21:00)
--- NOTE | 2016-04-27 12:16 | CONS ---
Date/Time of Note Date/Time of Note DATE: 04/27/16 TIME: 12:14 Assessment/Plan Assessment/Plan Additional Assessment/Plan 1. CKD, stable 2. Chronic CHF, to be HD today and tomm and then can dc if ok with I(M 3. Anemia is stable Consultation Date/Type/Reason Admit Date/Time Apr 23, 2016 at 19:25 Detailed Summary Respiratory: shortness of breath (mild) Cardiovascular: No chest pain Gastrointestinal: no complaints Genitourinary: no complaints Exam/Review of Systems Vital Signs Vitals Vital Signs Date Time Temp Pulse Resp B/P Pulse Ox O2 Delivery O2 Flow Rate FiO2 04/27/16 12:12 73 04/27/16 11:47 98.5 20 150/63 97 04/27/16 10:24 Nasal Cannula 2.0 04/23/16 22:00 33 Intake and Output 04/26/16 04/26/16 04/27/16 15:00 23:00 07:00 Intake Total 600 ml Output Total 600 ml Balance 0 ml Exam Neck: No jvd Respiratory: diminished breath sounds (and rales bases unchanged) Results Result Diagram: 04/27/16 0545 04/27/16 0545 Results 24 hrs Laboratory Tests Test 04/27/16 05:45 Anion Gap 18 H Basophils # 0.1 Basophils % 0.6 Blood Morphology Comment Blood Urea Nitrogen 60 H Calcium Level 8.6 Carbon Dioxide Level 29 Chloride Level 98 Creatinine 5.92 H Eosinophils # 0.3 Eosinophils % 3.2 Glucose Level 68 L Hematocrit 28.2 L Hemoglobin 9.2 L Lymphocytes # 1.6 Lymphocytes % 18.6 Mean Corpuscular Hemoglobin 29.5 Mean Corpuscular Hemoglobin Concent 32.5 Mean Corpuscular Volume 90.7 Mean Platelet Volume 6.9 L Monocytes # 0.6 Monocytes % 7.2 Neutrophils # 6.2 Neutrophils % 70.4 Nucleated Red Blood Cells # 0.0 Nucleated Red Blood Cells % 0.0 Platelet Count 261 # Potassium Level 4.3 Red Blood Count 3.11 L Red Cell Distribution Width 17.3 H Sodium Level 141 White Blood Count 8.8 Medications Medications Current Medications Acetaminophen (Tylenol Tab) 650 mg Q6H PRN PO PAIN AND OR ELEVATED TEMP; Start 04/24/16 at 09:00 Valsartan (Diovan) 320 mg DAILY PO ; Start 04/24/16 at 09:00 Pantoprazole (Protonix Iv) 40 mg DAILY@06 IV Last administered on 04/27/16 06: 16; Admin Dose 40 MG; Start 04/24/16 at 10:00 Docusate Sodium (Colace) 100 mg DAILY PO Last administered on 04/27/16 08:33; Admin Dose 100 MG; Start 04/24/16 at 09:00 Senna (Senokot) 1 tab DAILY PRN PO CONSTIPATION; Start 04/24/16 at 13:00 Tamsulosin HCl (Flomax) 0.4 mg HS PO Last administered on 04/26/16 22:01; Admin Dose 0.4 MG; Start 04/24/16 at 21:00 Nifedipine (Procardia Xl) 30 mg BID PO Last administered on 04/26/16 19:19; Admin Dose 30 MG; Start 04/24/16 at 13:00 Epoetin Jordon (Epogen (Esrd)) 10,000 units MoWeFr@17 SC Last administered on 18:11; Admin Dose 10,000 UNITS; Start 04/24/16 at 17:00 Carvedilol (Coreg) 12.5 mg BID PO Last administered on 04/26/16 22:00; Admin Dose 12.5 MG; Start 04/25/16 at 10:30 Clonidine (Catapres) 0.1 mg TID PO Last administered on 04/26/16 22:01; Admin Dose 0.1 MG; Start 04/25/16 at 13:00 Minoxidil (Loniten) 2.5 mg BID PO Last administered on 04/26/16 22:01; Admin Dose 2.5 MG; Start 04/26/16 at 12:30 Salmeterol Xinafoate/ Fluticasone (Advair 500/50 Diskus) 1 inh BID INH Last administered on 04/27/16 08:34; Admin Dose 1 INH; Start 04/26/16 at 21:00 Tiotropium [place] (Spiriva) 1 inh BID INH Last administered on 04/27/16 08:35 ; Admin Dose 1 INH; Start 04/26/16 at 21:00 TRUE GTZ MD Apr 27, 2016 12:16
--- NOTE | 2016-04-27 13:38 | CONS ---
Date/Time of Note Date/Time of Note DATE: 04/27/16 TIME: 13:38 Consultation Date/Type/Reason Admit Date/Time Apr 23, 2016 at 19:25 Exam/Review of Systems Vital Signs Vitals Vital Signs Date Time Temp Pulse Resp B/P Pulse Ox O2 Delivery O2 Flow Rate FiO2 04/27/16 12:12 73 04/27/16 11:47 98.5 20 150/63 97 04/27/16 10:24 Nasal Cannula 2.0 04/23/16 22:00 33 Intake and Output 04/26/16 04/26/16 04/27/16 14:59 22:59 06:59 Intake Total 600 ml Output Total 600 ml Balance 0 ml Results Result Diagram: 04/27/16 0545 04/27/16 0545 Results 24 hrs Laboratory Tests Test 04/27/16 05:45 Anion Gap 18 H Basophils # 0.1 Basophils % 0.6 Blood Morphology Comment Blood Urea Nitrogen 60 H Calcium Level 8.6 Carbon Dioxide Level 29 Chloride Level 98 Creatinine 5.92 H Eosinophils # 0.3 Eosinophils % 3.2 Glucose Level 68 L Hematocrit 28.2 L Hemoglobin 9.2 L Lymphocytes # 1.6 Lymphocytes % 18.6 Mean Corpuscular Hemoglobin 29.5 Mean Corpuscular Hemoglobin Concent 32.5 Mean Corpuscular Volume 90.7 Mean Platelet Volume 6.9 L Monocytes # 0.6 Monocytes % 7.2 Neutrophils # 6.2 Neutrophils % 70.4 Nucleated Red Blood Cells # 0.0 Nucleated Red Blood Cells % 0.0 Platelet Count 261 # Potassium Level 4.3 Red Blood Count 3.11 L Red Cell Distribution Width 17.3 H Sodium Level 141 White Blood Count 8.8 Medications Medications Current Medications Acetaminophen (Tylenol Tab) 650 mg Q6H PRN PO PAIN AND OR ELEVATED TEMP; Start 04/24/16 at 09:00 Valsartan (Diovan) 320 mg DAILY PO ; Start 04/24/16 at 09:00 Docusate Sodium (Colace) 100 mg DAILY PO Last administered on 04/27/16 08:33; Admin Dose 100 MG; Start 04/24/16 at 09:00 Senna (Senokot) 1 tab DAILY PRN PO CONSTIPATION; Start 04/24/16 at 13:00 Tamsulosin HCl (Flomax) 0.4 mg HS PO Last administered on 04/26/16 22:01; Admin Dose 0.4 MG; Start 04/24/16 at 21:00 Nifedipine (Procardia Xl) 30 mg BID PO Last administered on 04/26/16 19:19; Admin Dose 30 MG; Start 04/24/16 at 13:00 Epoetin Jordon (Epogen (Esrd)) 10,000 units MoWeFr@17 SC Last administered on 18:11; Admin Dose 10,000 UNITS; Start 04/24/16 at 17:00 Carvedilol (Coreg) 12.5 mg BID PO Last administered on 04/26/16 22:00; Admin Dose 12.5 MG; Start 04/25/16 at 10:30 Clonidine (Catapres) 0.1 mg TID PO Last administered on 04/26/16 22:01; Admin Dose 0.1 MG; Start 04/25/16 at 13:00 Minoxidil (Loniten) 2.5 mg BID PO Last administered on 04/26/16 22:01; Admin Dose 2.5 MG; Start 04/26/16 at 12:30 Salmeterol Xinafoate/ Fluticasone (Advair 500/50 Diskus) 1 inh BID INH Last administered on 04/27/16 08:34; Admin Dose 1 INH; Start 04/26/16 at 21:00 Tiotropium [place] (Spiriva) 1 inh BID INH Last administered on 04/27/16 08:35 ; Admin Dose 1 INH; Start 04/26/16 at 21:00 Pantoprazole (Protonix Tab) 40 mg DAILY@06 PO ; Start 04/28/16 at 06:00 ANDRE SMITH MD Apr 27, 2016 13:38
--- NOTE | 2016-04-27 20:11 | PN ---
Date/Time of Note Date/Time of Note DATE: 04/27/16 TIME: 20:04 Assessment/Plan VTE Prophylaxis VTE Prophylaxis Intervention: ambulation, anti-embolic stocking VTE Contraindication Reason: peripheral vascular disease Lines/Catheters IV Catheter Type (from Nrsg): Saline Lock (PERMACATH) Central line still needed: No Urinary Cath still in place: No Reason Cath still needed: urinary retention Assessment/Plan Chief Complaint/Hosp Course 1. Respiratory distress-getting worse. 2.. CHF exacerbation-improving. 3. Chest pain-s/p 2 angiographies and stenting 4. End-stage renal disease. 5. Leukocytosis- got worse. 6. Diabetes type 2. 7. Osteoarthritis. 8. Anemia of chronic disease. 9. Status post multiple units of packed red blood cell transfusions. 10. Weight loss-more than 50lb in 8 months. 11. Hypertension-out of control. 12. Memory impairment. 13. Major depression. 14. Back pain. 15. Benign prostatic hypertrophy. 16. S/P left forearm a/v shunt placement for dialysis. 17. S/P right Jugular vein cannulation for dialysis 18. Hypoxemia with hypercapnia on home 02 and BIPAP. 19. Anxiety; borderline personality 20. Excessive thirst. 21. Constipation with increased flatulence. 22.Diarrhea new onset. Problems: Subjective 24 Hr Interval Summary Free Text/Dictation Severe sob with exhaustion after even brief 2-3 minute of talk. The patient become so sob that I stopped qwestioning and relied on yes-no type question with mild head movement.Even that had made him fatigued. Subjective hx not possible: pt critical Constitutional: chills, diaphoresis, disoriented, poor po, requiring O2, No febrile, No improved, No no complaints, No other, No requiring IVF Eyes: No discharge, No no complaints, No other, No pain, No redness, No visual change ENT: discharge, dysphagia, No bleeding, No congestion, No no complaints, No other, No pain, No sore throat Respiratory: cough, shortness of breath, wheezing, No no complaints, No other, No pain, No pleuritic pain, No sputum Cardiovascular: chest pain, lightheadedness, orthopenea, palpitations, No edema, No no complaints, No other, No paroxysmal nocturnal dyspnea Gastrointestinal: diarrhea (after laxatives.), flatus, pain, No blood, No constipation, No decreased appetite, No nausea, No no complaints , No other, No passing stool, No vomiting Genitourinary: dysuria, No bleeding, No discharge, No flank pain, No hematuria, No no complaints, No other Musculoskeletal: back pain, neck pain, No bone/joint pain, No no complaints, No other, No restricted range of motion , No swelling Neurologic: dizziness Psychological: anxiety, depression ( forgetful.) Exam/Review of Systems Vital Signs Vitals Vital Signs Date Time Temp Pulse Resp B/P Pulse Ox O2 Delivery O2 Flow Rate FiO2 04/27/16 20:02 2.0 04/27/16 19:50 81 18 04/27/16 15:26 97.7 170/81 97 04/27/16 14:35 Nasal Cannula 04/23/16 22:00 33 Intake and Output 04/26/16 04/26/16 04/27/16 15:00 23:00 07:00 Intake Total 600 ml Output Total 600 ml Balance 0 ml Exam Constitutional: alert, frail, oriented, well developed, No distress, No non-verbal, No obese, No other Psych: anxiety, confusion, depression, No nl mood/affect, No no complaints, No other, No suicidal Head: atraumatic, No hematomas, No lacerations, No normocephalic, No other Eyes: nl lids, No EOMI, No PERRL, No fundi, disc, No icteric, No nl conjunctiva, No nl sclera, No other ENMT: nl external ears & nose, tympanic membranes Neck: bruits, jvd, nuchal rigidity, No masses, No non-tender, No other, No supple, No thyromegaly Respiratory: congested cough, diminished breath sounds, labored breathing, normal air movement, other, wheezing (uses accessorfy muscles of respiration ), No clear to auscultation, No crackles/rales, No intercostal retraction, No respirations, No tactile fremitus Cardiovascular: bruits, regular rate and rhythm, systolic murmur, No S3, No S4, No diastolic murmur, No edema, No gallop, No irregular rhythm, No jugular venous distention (JVD), No murmurs/extra sounds, No nl pulses, No other, No rub Gastrointestinal: distended, No ascites, No bowel sounds, No firm, No hepatomegaly, No mass, No nl liver, spleen, No non-tender, No other, No rebound or guarding, No soft, No splenomegaly, No surgical scars, No tender Genitourinary - Male: nl penis, nl scrotum, No CVA tenderness, No discharge, No other Musculoskeletal: joint tenderness, muscle tone, muscle weakness, No nl extremities to inspection, No nl gait and stance, No other, No range of motion, No spine non-tender, No swelling Extremities: No calf tenderness, No clubbing, No cyanosis, No edema, No normal pulses, No other, No palpable cord, No pitting pedal edema, No tenderness Skin: No diaphoresis, No ecchymosis, No laceration, No nl turgor, No other, No puncture, No rash or lesions Lymph: No enlarged, No nl lymph nodes, No nontender, No other Results Result Diagram: 04/27/16 0545 04/27/16 0545 Results 24 hrs Laboratory Tests Test 04/27/16 05:45 Anion Gap 18 H Basophils # 0.1 Basophils % 0.6 Blood Morphology Comment Blood Urea Nitrogen 60 H Calcium Level 8.6 Carbon Dioxide Level 29 Chloride Level 98 Creatinine 5.92 H Eosinophils # 0.3 Eosinophils % 3.2 Glucose Level 68 L Hematocrit 28.2 L Hemoglobin 9.2 L Lymphocytes # 1.6 Lymphocytes % 18.6 Mean Corpuscular Hemoglobin 29.5 Mean Corpuscular Hemoglobin Concent 32.5 Mean Corpuscular Volume 90.7 Mean Platelet Volume 6.9 L Monocytes # 0.6 Monocytes % 7.2 Neutrophils # 6.2 Neutrophils % 70.4 Nucleated Red Blood Cells # 0.0 Nucleated Red Blood Cells % 0.0 Platelet Count 261 # Potassium Level 4.3 Red Blood Count 3.11 L Red Cell Distribution Width 17.3 H Sodium Level 141 White Blood Count 8.8 Medications Medications Current Medications Acetaminophen (Tylenol Tab) 650 mg Q6H PRN PO PAIN AND OR ELEVATED TEMP; Start 04/24/16 at 09:00 Valsartan (Diovan) 320 mg DAILY PO ; Start 04/24/16 at 09:00 Docusate Sodium (Colace) 100 mg DAILY PO Last administered on 04/27/16t 08:33; Admin Dose 100 MG; Start 04/24/16 at 09:00 Senna (Senokot) 1 tab DAILY PRN PO CONSTIPATION; Start 04/24/16 at 13:00 Tamsulosin HCl (Flomax) 0.4 mg HS PO Last administered on 04/26/16 22:01; Admin Dose 0.4 MG; Start 04/24/16 at 21:00 Nifedipine (Procardia Xl) 30 mg BID PO Last administered on 04/26/16 19:19; Admin Dose 30 MG; Start 04/24/16 at 13:00 Epoetin [place]ordon (Epogen (Esrd)) 10,000 units MoWeFr@17 SC Last administered on 18:11; Admin Dose 10,000 UNITS; Start 04/24/16 at 17:00 Carvedilol (Coreg) 12.5 mg BID PO Last administered on 04/26/16 22:00; Admin Dose 12.5 MG; Start 04/25/16 at 10:30 Clonidine (Catapres) 0.1 mg TID PO Last administered on 04/26/16 22:01; Admin Dose 0.1 MG; Start 04/25/16 at 13:00 Minoxidil (Loniten) 2.5 mg BID PO Last administered on 04/26/16 22:01; Admin Dose 2.5 MG; Start 04/26/16 at 12:30 Salmeterol Xinafoate/ Fluticasone (Advair 500/50 Diskus) 1 inh BID INH Last administered on 04/27/16 08:34; Admin Dose 1 INH; Start 04/26/16 at 21:00 Tiotropium [place] (Spiriva) 1 inh BID INH Last administered on 04/27/16 08:35 ; Admin Dose 1 INH; Start 04/26/16 at 21:00 Pantoprazole (Protonix Tab) 40 mg DAILY@06 PO ; Start 04/28/16 at 06:00 HINA CASTILLO MD Apr 27, 2016 20:11
[2016-04-27] MEDS ORDERED: METHYLPREDNISOLONE 125 MG INJ IM ONE (20:30)
[2016-04-27] MEDS ORDERED: HEPARIN 1000 UNITS/ML 10 ML INJ CATHETER ONE (20:30)
[2016-04-27] MEDS: TAMSULOSIN (SR) 0.4 MG CAP PO SCH (22:48)
[2016-04-27] MEDS: EPOETIN 10000 UNITS/1 ML INJ (ESRD) SC SCH (22:58)
[2016-04-28] VITALS (16 sets, daily range): BP systolic 114–187; BP diastolic 66–84; PULSE 64–102; RESP 16–20
[2016-04-28] MEDS: IPRATROPIUM (NEB) 0.5 MG/2.5 ML AMP HHN SCH ×3 (01:26→14:18)
[2016-04-28] MEDS: NIFEdipine (XL) 30 MG TAB PO SCH ×2 (03:57→08:29)
[2016-04-28] MEDS ORDERED: PANTOPRAZOLE (EC) 40 MG TAB PO SCH (06:00)
[2016-04-28] MEDS: LEVOTHYROXINE 125 MCG TAB PO SCH (06:43)
[2016-04-28] MEDS: ALBUTEROL 0.083% (NEB) 2.5 MG/3 ML AMP HHN SCH ×2 (07:44→14:18)
[2016-04-28 08:17] LABS: BASOPHILS % 0.5 % (0.0-2.0); HEMATOCRIT 29.9 % (42.0-52.0); HEMOGLOBIN 9.8 g/dl (14.0-18.0); LYMPHOCYTES # 0.6 10^3/ul (0.8-2.9); LYMPHOCYTES % 10.5 % (15.0-51.0); MEAN CORPUSCULAR HEMOGLOBIN 29.8 pg (29.0-33.0); MEAN CORPUSCULAR HGB CONC 32.7 g/dl (32.0-37.0); MEAN CORPUSCULAR VOLUME 90.9 fl (82.0-101.0); MEAN PLATELET VOLUME 6.7 fl (7.4-10.4); MONOCYTE # 0.1 10^3/ul (0.3-0.9); MONOCYTES % 1.6 % (0.0-11.0); NEUTROPHIL # 4.9 10^3/ul (1.6-7.5); NEUTROPHILS % 87.4 % (39.0-77.0); PLATELET COUNT 286 10^3/UL (140-440); RED BLOOD COUNT 3.29 10^6/ul (4.70-6.10); RED CELL DISTRIBUTION WIDTH 17.3 % (11.5-14.5); UNCORRECTED WBC 5.6 10^3/ul (4.8-10.8); WHITE BLOOD COUNT 5.6 10^3/ul (4.8-10.8)
[2016-04-28] MEDS: SALMETEROL/FLUTICASONE 500/50 INHA INH SCH (08:17)
[2016-04-28] MEDS: TIOTROPIUM 18 MCG CAPSULE INHA DEV INH SCH (08:18)
[2016-04-28 08:21] LABS: POTASSIUM 4.8 mmol/L (3.5-5.1)
[2016-04-28 08:22] LABS: CONDITION 1; LH ANALYZER COMMENTS 1
[2016-04-28 08:24] LABS: CREATININE 5.44 mg/dl (0.61-1.24)
[2016-04-28 08:25] LABS: CALCIUM 8.7 mg/dl (8.4-10.2)
[2016-04-28] MEDS ORDERED: METHYLPREDNISOLONE 125 MG INJ IV ONE (08:30)
[2016-04-28] MEDS: VALSARTAN 160 MG TAB PO SCH (08:35)
[2016-04-28] MEDS: MINOXIDIL 2.5 MG TAB PO SCH (08:35)
--- NOTE | 2016-04-28 08:36 | CONS ---
Date/Time of Note Date/Time of Note DATE: 04/28/16 TIME: 08:34 Assessment/Plan Assessment/Plan Additional Assessment/Plan 1. CKD, stable, to be dialyzed today 2. HBP, control not optimal, I inc Minoxidil to 5 mg bid 3. Anemia is better 4. Can be discharged if ok with IM Consultation Date/Type/Reason Admit Date/Time Apr 23, 2016 at 19:25 Detailed Summary Respiratory: shortness of breath (is less) Cardiovascular: No chest pain Gastrointestinal: no complaints Genitourinary: no complaints Exam/Review of Systems Vital Signs Vitals Vital Signs Date Time Temp Pulse Resp B/P Pulse Ox O2 Delivery O2 Flow Rate FiO2 04/28/16 08:31 179/83 04/28/16 08:10 102 04/28/16 07:46 Nasal Cannula 2.0 04/28/16 07:45 18 98 04/28/16 07:30 97.7 Intake and Output 04/27/16 04/27/16 04/28/16 15:00 23:00 07:00 Intake Total 980 ml 220 ml Output Total 3600 ml 3000 ml Balance -2620 ml -2780 ml Exam Neck: No jvd Respiratory: clear to auscultation Cardiovascular: regular rate and rhythm Gastrointestinal: soft Extremities: No edema Results Result Diagram: 04/28/16 0715 04/28/16 0720 Results 24 hrs Laboratory Tests Test 04/28/16 07:15 04/28/16 07:20 Basophils # 0.0 Basophils % 0.5 Blood Morphology Comment Eosinophils # 0.0 Eosinophils % 0.0 Hematocrit 29.9 L Hemoglobin 9.8 L Lymphocytes # 0.6 L Lymphocytes % 10.5 L Mean Corpuscular Hemoglobin 29.8 Mean Corpuscular Hemoglobin Concent 32.7 Mean Corpuscular Volume 90.9 Mean Platelet Volume 6.7 L Monocytes # 0.1 L Monocytes % 1.6 Neutrophils # 4.9 Neutrophils % 87.4 H Nucleated Red Blood Cells # 0.0 Nucleated Red Blood Cells % 0.0 Platelet Count 286 Red Blood Count 3.29 L Red Cell Distribution Width 17.3 H White Blood Count 5.6 # Anion Gap 18 H Blood Urea Nitrogen 57 H Calcium Level 8.7 Carbon Dioxide Level 28 Chloride Level 98 Creatinine 5.44 H Glucose Level 133 # Potassium Level 4.8 Sodium Level 139 Medications Medications Current Medications Acetaminophen (Tylenol Tab) 650 mg Q6H PRN PO PAIN AND OR ELEVATED TEMP; Start 04/24/16 at 09:00 Valsartan (Diovan) 320 mg DAILY PO ; Start 04/24/16 at 09:00 Tamsulosin HCl (Flomax) 0.4 mg HS PO Last administered on 04/27/16 22:48; Admin Dose 0.4 MG; Start 04/24/16 at 21:00 Nifedipine (Procardia Xl) 30 mg BID PO Last administered on 04/28/16 08:29; Admin Dose 30 MG; Start 04/24/16 at 13:00 Epoetin [place] (Epogen (Esrd)) 10,000 units MoWeFr@17 SC Last administered on 22:58; Admin Dose 10,000 UNITS; Start 04/24/16 at 17:00 Carvedilol (Coreg) 12.5 mg BID PO Last administered on 04/28/16 08:16; Admin Dose 12.5 MG; Start 04/25/16 at 10:30 Clonidine (Catapres) 0.1 mg TID PO Last administered on 04/26/16 22:01; Admin Dose 0.1 MG; Start 04/25/16 at 13:00 Minoxidil (Loniten) 2.5 mg BID PO Last administered on 04/26/16 22:01; Admin Dose 2.5 MG; Start 04/26/16 at 12:30 Salmeterol Xinafoate/ Fluticasone (Advair 500/50 Diskus) 1 inh BID INH Last administered on 04/28/16 08:17; Admin Dose 1 INH; Start 04/26/16 at 21:00 Tiotropium [place] (Spiriva) 1 inh BID INH Last administered on 04/28/16 08:18 ; Admin Dose 1 INH; Start 04/26/16 at 21:00 Pantoprazole (Protonix Tab) 40 mg DAILY@06 PO Last administered on 04/28/16 06 :43; Admin Dose 40 MG; Start 04/28/16 at 06:00 Methylprednisolone Sodium Succinate (Solu-Medrol) 60 mg AM ONCE IM ; Start at 09:00; Stop 04/28/16 at 09:01 Methylprednisolone Sodium Succinate (Solu-Medrol) 60 mg ONCE ONCE IV ; Start at 08:30; Stop 04/28/16 at 08:31; Status UNV TRUE GTZ MD Apr 28, 2016 08:36
[2016-04-28] MEDS ORDERED: MINOXIDIL 2.5 MG TAB PO SCH (09:00)
[2016-04-28] MEDS ORDERED: METHYLPREDNISOLONE 125 MG INJ IM ONE (09:00)
[2016-04-28] MEDS ORDERED: PANT40TA4 PO (13:59)
[2016-04-28] MEDS ORDERED: CLON-379 PO (13:59)
[2016-04-28] MEDS ORDERED: TIOT18CA INH (13:59)
[2016-04-28] MEDS ORDERED: Ipratropium 0.02% (Neb) HHN (13:59)
[2016-04-28] MEDS ORDERED: CARV12.579 PO (13:59)
[2016-04-28] MEDS ORDERED: MIN25 PO (13:59)
[2016-04-28] MEDS ORDERED: EPO10ESRD SC (13:59)
[2016-04-28] MEDS ORDERED: ACET325T33 PO (13:59)
[2016-04-28] MEDS ORDERED: TAMS-14 PO (13:59)
[2016-04-28] MEDS ORDERED: ALBU2.5V3 HHN (13:59)
[2016-04-28] MEDS ORDERED: NIFE30TA2 PO (13:59)
[2016-04-28] MEDS ORDERED: VALS160T20 PO (13:59)
[2016-04-28] MEDS ORDERED: LEVO125T79 PO (13:59)
[2016-04-28] MEDS ORDERED: ADV50050 INH (13:59)
--- NOTE | 2016-04-28 14:04 | DS ---
Date/Time of Note Date/Time of Note DATE: 04/28/16 TIME: 14:00 Discharge Summary Admission/Discharge Info Admit Date/Time Apr 23, 2016 at 19:25 Discharge Date/Time Final Diagnosis 1. Respiratory distress-getting improved last 24 hours. 2.. CHF ivebwswdkfhl-hzoottpa-[id number] x 4 dialysis /week; discussed with .. 3. Chest pain-s/p 2 angiographies and stenting 4. End-stage renal disease. 5. Leukocytosis- improved. 6. Diabetes type 2. 7. Osteoarthritis. 8. Anemia of chronic disease. 9. Status post multiple units of packed red blood cell transfusions. 10. Weight loss-more than 50lb in 8 months. 11. Hypertension-out of control. 12. Memory impairment. 13. Major depression. 14. Back pain. 15. Benign prostatic hypertrophy. 16. S/P left forearm a/v shunt placement for dialysis. 17. S/P right Jugular vein cannulation for dialysis 18. Hypoxemia with hypercapnia on home 02 and BIPAP. 19. Anxiety; borderline personality 20. Excessive thirst. 21. Constipation with increased flatulence. 22.Diarrhea new onset. Patient Condition: Serious Consults . Hospital Course 1. Respiratory distress-getting worse. 2.. CHF exacerbation-improving. 3. Chest pain-s/p 2 angiographies and stenting 4. End-stage renal disease. 5. Leukocytosis- got worse. 6. Diabetes type 2. 7. Osteoarthritis. 8. Anemia of chronic disease. 9. Status post multiple units of packed red blood cell transfusions. 10. Weight loss-more than 50lb in 8 months. 11. Hypertension-out of control. 12. Memory impairment. 13. Major depression. 14. Back pain. 15. Benign prostatic hypertrophy. 16. S/P left forearm a/v shunt placement for dialysis. 17. S/P right Jugular vein cannulation for dialysis 18. Hypoxemia with hypercapnia on home 02 and BIPAP. 19. Anxiety; borderline personality 20. Excessive thirst. 21. Constipation with increased flatulence. 22.Diarrhea new onset improved after stop of laxative. Home Meds Active Scripts Valsartan* (Diovan*) 160 Mg Tablet, 320 MG PO DAILY for 30 Days, #60 TAB Hold if Sysgtolic less than 120mm hg. Prov:HINA CASTILLO MD 04/28/16 Tiotropium [place]* (Spiriva*) 18 Mcg Cap.w.dev, 1 INH INH BID for 30 Days, #60 CAP Prov:HINA CASTILLO MD 04/28/16 Tamsulosin Hcl* (Flomax*) 0.4 Mg Cap.er.24h, 0.4 MG PO HS for 30 Days, #30 CAP Prov:HINA CASTILLO MD 04/28/16 Salmeterol Xinaf-Fluticasone* (Advair*) 500/50 Diskus Inhaler, 1 INH INH BID for 30 Days, #1 CAP.EC Prov:HINA CASTILLO MD 04/28/16 Pantoprazole* (Pantoprazole*) 40 Mg Tablet.dr, 40 MG PO DAILY@06 for 30 Days, # 30 BOX Prov:HINA CASTILLO MD 04/28/16 Nifedipine (Procardia Xl) 30 Mg Tab.er.24, 30 MG PO BID for 30 Days, #30 TAB Prov:HINA CASTILLO MD 04/28/16 Minoxidil* (Lonitin*) 2.5 Mg Tab, 5 MG PO BID for 30 Days, #60 TAB Prov:HINA CASTILLO MD 04/28/16 Levothyroxine Sodium* (Synthroid*) 125 Mcg Tablet, 125 MCG PO BEFORE BREAKFAST for 30 Days, #30 TAB Prov:HINA CASTILLO MD 04/28/16 [Ipratropium 0.02% (Neb)] 0.5 MG/2.5 ML NEBU No Conflict Check, 0.5 MG HHN Q6H RESP THERAPY for 30 Days, #90 CAP Prov:HINA CASTILLO MD 04/28/16 Epoetin Jordon (Epogen) 10,000 Units/Ml Soln, 72893 UNITS SC MoWeFr@17 for 14 Days , #30 DAYSX 3 28 Prov:HINA CASTILLO MD 04/28/16 Clonidine Hcl* (Clonidine Hcl*) 0.1 Mg Tab, 0.1 MG PO TID for 30 Days, #90 TAB Prov:HINA CASTILLO MD 04/28/16 Carvedilol* (Carvedilol*) 12.5 Mg Tablet, 12.5 MG PO BID for 30 Days, #60 TAB Prov:HINA CASTILLO MD 04/28/16 Albuterol Sulfate* (Albuterol Sulfate* Neb) 0.083%-3 Ml Neb, 2.5 MG HHN Q6HWA RESP THERAPY for 30 Days, #90 BLIST PACK Prov:HINA CASTILLO MD 04/28/16 Acetaminophen* (Tylenol*) 325 Mg Tablet, 650 MG PO Q6H Y for PAIN AND OR ELEVATED TEMP for 30 Days, #90 TAB Prov:HINA CASTILLO MD 04/28/16 Reported Medications Sennosides* (Senna Lax*) 8.6 Mg Tablet, 1 TAB PO DAILY Y for CONSTIPATION, TAB 01/13/16 Levalbuterol* (Xopenex* HFA) 15 Gm Inha, 2 PUFFS INH Q4H Y for WHEEZING AND SOB , INHALER 01/13/16 Minoxidil* (Lonitin*) 10 Mg Tab, 10 MG PO DAILY, TAB HOLD FOR SBP<110 HR<60(HTN) 01/13/16 Clonidine Hcl* (Clonidine Hcl*) 0.1 Mg Tab, 0.1 MG PO BID, TAB FOR SBP<110: HR<60(HTN) 01/13/16 Valsartan* (Diovan*) 320 Mg Tablet, 320 MG PO DAILY, TAB HOLD FOR SBP<110 HR<60(HTN) 01/13/16 Salmeterol Xinaf/Fluticasone* (Advair*) 250-50 Diskus Inhaler, 1 INH INHALATION BID, #1 INHALER 11/28/15 Clopidogrel Bisulfate* (Clopidogrel Bisulfate*) 75 Mg Tablet, 75 MG PO DAILY, # 30 TAB 11/28/15 Esomeprazole Mag Trihydrate (Nexium) 40 Mg Capsule.dr, 40 MG PO DAILY, #30 CAP 11/28/15 Tamsulosin Hcl* (Tamsulosin Hcl*) 0.4 Mg Cap.er.24h, 0.4 MG PO HS, CAP 11/28/15 Levothyroxine Sodium* (Levothyroxine Sodium*) 125 Mcg Tablet, 125 MCG PO BEFORE BREAKFAST, #30 TAB 11/28/15 Discontinued Reported Medications Acetaminophen (Mapap) 500 Mg Capsule, 1000 MG PO Q4H Y for PAIN, CAP 01/13/16 [place]-3 Acid Ethyl Esters (Lovaza) 1 Gm Capsule, 1 GM PO BID, CAP 01/13/16 Febuxostat* (Uloric*) 40 Mg Tablet, 40 MG PO DAILY, TAB 11/28/15 Discontinued Scripts Linezolid (Linezolid) 600 Mg Tablet, 600 MG PO BID for 10 Days, TAB Prov:HINA CASTILLO MD 04/04/16 Pending Labs Laboratory Tests Test 04/28/16 07:15 04/28/16 07:20 Basophils # 0.010^3/ul (0.0-0.1) Basophils % 0.5% (0.0-2.0) Blood Morphology Comment Eosinophils # 0.010^3/ul (0.0-0.5) Eosinophils % 0.0% (0.0-7.0) Hematocrit 29.9% (42.0-52.0) Hemoglobin 9.8g/dl (14.0-18.0) Lymphocytes # 0.610^3/ul (0.8-2.9) Lymphocytes % 10.5% (15.0-51.0) Mean Corpuscular Hemoglobin 29.8pg (29.0-33.0) Mean Corpuscular Hemoglobin Concent 32.7g/dl (32.0-37.0) Mean Corpuscular Volume 90.9fl (82.0-101.0) Mean Platelet Volume 6.7fl (7.4-10.4) Monocytes # 0.110^3/ul (0.3-0.9) Monocytes % 1.6% (0.0-11.0) Neutrophils # 4.910^3/ul (1.6-7.5) Neutrophils % 87.4% (39.0-77.0) Nucleated Red Blood Cells # 0.010^3/ul (0.0-0.0) Nucleated Red Blood Cells % 0.0/100WBC (0.0-0.0) Platelet Count 70890^3/UL (140-440) Red Blood Count 3.2910^6/ul (4.70-6.10) Red Cell Distribution Width 17.3% (11.5-14.5) White Blood Count 5.610^3/ul (4.8-10.8) Anion Gap 18 (8-16) Blood Urea Nitrogen 57mg/dl (7-20) Calcium Level 8.7mg/dl (8.4-10.2) Carbon Dioxide Level 28mmol/L (21-31) Chloride Level 98mmol/L (97-110) Creatinine 5.44mg/dl (0.61-1.24) Glucose Level 133mg/dl (70-220) Potassium Level 4.8mmol/L (3.5-5.1) Sodium Level 139mmol/L (135-144) HINA CASTILLO MD Apr 28, 2016 14:04
--- NOTE | 2016-04-28 14:34 | RADRPT ---
PROCEDURE: XR Chest. CLINICAL INDICATION: Congestive heart failure. TECHNIQUE: Chest x-ray, single view. COMPARISON: 04/23/2016. FINDINGS: The cardiac silhouette is magnified and unchanged in size and configuration. Aortic arch atheroscle rotic calcification is present. A right-sided hemodialysis catheter terminates at the SVC/right atr ial junction. Pulmonary vascular congestion has slightly decreased. A mild fine background interst itial pattern is observed and may reflect the presence of mild interstitial edema. Skeletal structu res and upper abdomen are unremarkable. IMPRESSION: Cardiomegaly and atherosclerosis with mild decrease in pulmonary vascular congestion. Mild residual interstitial edema is also likely present. RPTAT: [facility]ST .Carrol Prieto MD, MD Date Time Electronically viewed and signed by .Carrol Prieto MD, on 04/28/2016 14:33 .T/
--- NOTE | 2016-04-28 17:33 | CONS ---
Date/Time of Note Date/Time of Note DATE: 04/28/16 TIME: 17:33 Consultation Date/Type/Reason Admit Date/Time Apr 23, 2016 at 19:25 Exam/Review of Systems Vital Signs Vitals Vital Signs Date Time Temp Pulse Resp B/P Pulse Ox O2 Delivery O2 Flow Rate FiO2 04/28/16 16:48 77 04/28/16 16:45 18 04/28/16 15:08 97.6 163/84 97 04/28/16 14:19 Nasal Cannula 2.0 Intake and Output 04/27/16 04/27/16 04/28/16 15:00 23:00 07:00 Intake Total 980 ml 220 ml Output Total 3600 ml 3000 ml Balance -2620 ml -2780 ml Results Result Diagram: 04/28/16 0715 04/28/16 0720 Results 24 hrs Laboratory Tests Test 04/28/16 07:15 04/28/16 07:20 Basophils # 0.0 Basophils % 0.5 Blood Morphology Comment Eosinophils # 0.0 Eosinophils % 0.0 Hematocrit 29.9 L Hemoglobin 9.8 L Lymphocytes # 0.6 L Lymphocytes % 10.5 L Mean Corpuscular Hemoglobin 29.8 Mean Corpuscular Hemoglobin Concent 32.7 Mean Corpuscular Volume 90.9 Mean Platelet Volume 6.7 L Monocytes # 0.1 L Monocytes % 1.6 Neutrophils # 4.9 Neutrophils % 87.4 H Nucleated Red Blood Cells # 0.0 Nucleated Red Blood Cells % 0.0 Platelet Count 286 Red Blood Count 3.29 L Red Cell Distribution Width 17.3 H White Blood Count 5.6 # Anion Gap 18 H Blood Urea Nitrogen 57 H Calcium Level 8.7 Carbon Dioxide Level 28 Chloride Level 98 Creatinine 5.44 H Glucose Level 133 # Potassium Level 4.8 Sodium Level 139 Medications Medications Current Medications Acetaminophen (Tylenol Tab) 650 mg Q6H PRN PO PAIN AND OR ELEVATED TEMP; Start 04/24/16 at 09:00 Valsartan (Diovan) 320 mg DAILY PO ; Start 04/24/16 at 09:00 Tamsulosin HCl (Flomax) 0.4 mg HS PO Last administered on 04/27/16 22:48; Admin Dose 0.4 MG; Start 04/24/16 at 21:00 Nifedipine (Procardia Xl) 30 mg BID PO Last administered on 04/28/16 08:29; Admin Dose 30 MG; Start 04/24/16 at 13:00 Epoetin Jordon (Epogen (Esrd)) 10,000 units MoWeFr@17 SC Last administered on 22:58; Admin Dose 10,000 UNITS; Start 04/24/16 at 17:00 Carvedilol (Coreg) 12.5 mg BID PO Last administered on 04/28/16 08:16; Admin Dose 12.5 MG; Start 04/25/16 at 10:30 Clonidine (Catapres) 0.1 mg TID PO Last administered on 04/26/16 22:01; Admin Dose 0.1 MG; Start 04/25/16 at 13:00 Salmeterol Xinafoate/ Fluticasone (Advair 500/50 Diskus) 1 inh BID INH Last administered on 04/28/16 08:17; Admin Dose 1 INH; Start 04/26/16 at 21:00 Tiotropium [place] (Spiriva) 1 inh BID INH Last administered on 04/28/16 08:18 ; Admin Dose 1 INH; Start 04/26/16 at 21:00 Pantoprazole (Protonix Tab) 40 mg DAILY@06 PO Last administered on 04/28/16 06 :43; Admin Dose 40 MG; Start 04/28/16 at 06:00 Minoxidil (Loniten) 5 mg BID PO ; Start 04/28/16 at 09:00 ANDRE SMITH MD Apr 28, 2016 17:33
== END 2016-04-28 18:33 | DRG 291 ==
LOC: E/R 17:26 → TEL 19:25
PROVIDERS: ADMIT Family Medicine; ATTEND Family Medicine
PROC: 5A1D60Z (ICD-10-PCS; principal; 2016-04-24)
DX: I13.2 Hypertensive heart and chronic kidney disease with heart failure and with stage 5 chronic kidney disease, or end stage renal disease (principal); N18.6 End stage renal disease; E11.9 Type 2 diabetes mellitus without complications; J44.1 Chronic obstructive pulmonary disease with (acute) exacerbation; D63.8 Anemia in other chronic diseases classified elsewhere; F32.9 Major depressive disorder, single episode, unspecified; F17.200 Nicotine dependence, unspecified, uncomplicated; I50.9 Heart failure, unspecified; Z99.2 Dependence on renal dialysis; R07.9 Chest pain, unspecified; R00.2 Palpitations; Z95.1 Presence of aortocoronary bypass graft; Z95.5 Presence of coronary angioplasty implant and graft; R63.4 Abnormal weight loss; Z68.28 Body mass index [BMI] 28.0-28.9, adult; N40.0 Benign prostatic hyperplasia without lower urinary tract symptoms; J45.909 Unspecified asthma, uncomplicated; J98.4 Other disorders of lung
CPT/HCPCS: 36415; 71010; 80048; 81001; 81003; 82550; 82553; 82962; 83880; 84100; 84484; 85025; 85610; 85730; 86850; 86900; 86901; 86920; 87040; 87081; 87086; 90935; 93005; 94640; 94664; 96372; C9113; J0886; J1644; J2060; J2930

== ENCOUNTER 2016-05-06 14:59 | Observation (INO) | payer MEDICARE, BC ==
[~2016-05-06] VITALS: Ht 157.5 cm; Wt 66.2 kg
[~2016-05-06 14:59] MED LIST changes: +ACET325T33 PO; -ACET500C3 PO; +ADV50050 INH; +ALBU2.5V3 HHN; +CARV12.579 PO; +EPO10ESRD SC; -FEBU40TA PO; +Ipratropium 0.02% (Neb) HHN; +LEVO125T PO; -LINE600T6 PO; +MIN25 PO; +NIFE30TA2 PO; -OMEG1CAP2 PO; +PANT40TA4 PO; +TAMS-14 PO; +TIOT18CA INH; +VALS160T20 PO
--- NOTE | 2016-05-06 15:42 | RADRPT ---
PROCEDURE: Chest x-ray CLINICAL INDICATION: Chest pain TECHNIQUE: Chest single view COMPARISON: 04/28/2016 FINDINGS: As before there is right IJ dialysis catheter. Stable cardiomegaly and an sclerotic aortic calcific ation is seen. There is persistent bilateral ground-glass/alveolar beatriz hilar densities. This like ly represents a vascular congestion. Superimposed pneumonia is not completely excluded. There are small bilateral pleural effusions. The overall appearance is unchanged IMPRESSION: 1. Right IJ dialysis catheter remains in place. 2. Persistent bilateral perihilar ground-glass and alveolar densities likely representing CHF. 3. Stable small bilateral pleural effusions. 4. Stable cardiomegaly and an sclerotic aortic calcification RPTAT: HH .Darnell Vilchis MD, Date Time Electronically viewed and signed by .Darnell Vilchis MD, on 05/06/2016 15:42 .W/
[2016-05-06] MEDS ORDERED: ACETAMINOPHEN 325 MG TAB PO PRN ×2 (16:00→20:30)
[2016-05-06] MEDS ORDERED: ONDANSETRON 4 MG INJ IV PRN (16:00)
[2016-05-06 16:32] LABS: BASOPHILS % 0.2 % (0.0-2.0); EOSINOPHILS # 0.4 10^3/ul (0.0-0.5); EOSINOPHILS % 3.4 % (0.0-7.0); HEMATOCRIT 36.3 % (42.0-52.0); HEMOGLOBIN 11.7 g/dl (14.0-18.0); LYMPHOCYTES # 1.1 10^3/ul (0.8-2.9); LYMPHOCYTES % 10.2 % (15.0-51.0); MEAN CORPUSCULAR HEMOGLOBIN 28.9 pg (29.0-33.0); MEAN CORPUSCULAR HGB CONC 32.3 g/dl (32.0-37.0); MEAN CORPUSCULAR VOLUME 89.6 fl (82.0-101.0); MEAN PLATELET VOLUME 7.3 fl (7.4-10.4); MONOCYTE # 0.6 10^3/ul (0.3-0.9); MONOCYTES % 5.7 % (0.0-11.0); NEUTROPHIL # 8.5 10^3/ul (1.6-7.5); NEUTROPHILS % 80.5 % (39.0-77.0); PLATELET COUNT 194 10^3/UL (140-440); RED BLOOD COUNT 4.05 10^6/ul (4.70-6.10); RED CELL DISTRIBUTION WIDTH 18.2 % (11.5-14.5); UNCORRECTED WBC 10.6 10^3/ul (4.8-10.8); WHITE BLOOD COUNT 10.6 10^3/ul (4.8-10.8)
[2016-05-06 16:35] LABS: CONDITION 1; LH ANALYZER COMMENTS 1
[2016-05-06 16:38] LABS: POTASSIUM 3.6 mmol/L (3.5-5.1)
[2016-05-06 16:39] LABS: INR 1.02; PROTIME 13.4 Sec (12.2-14.2)
[2016-05-06 16:40] LABS: PARTIAL THROMBOPLASTIN TIME 29.3 Sec (25.0-35.0)
[2016-05-06 16:41] LABS: CREATININE 3.87 mg/dl (0.61-1.24)
[2016-05-06 16:42] LABS: CALCIUM 8.3 mg/dl (8.4-10.2)
[2016-05-06 16:53] LABS: TROPONIN-I 0.097 ng/ml (0.00-0.12)
[2016-05-06] MEDS ORDERED: ASPIRIN 81 MG TAB PO ONE (18:30)
[2016-05-06 18:33] VITALS: TEMP 98
--- NOTE | 2016-05-06 18:59 | ERA ---
ER Documentation Chief Complaint Date/Time DATE: 05/06/16 TIME: 18:58 Chief Complaint SOB AFTER DIALYSIS PER EMS REPORT HPI Patient is a 81-year-old male with dialysis presents with shortness of breath. He had shortness of breath after dialysis. He was brought in by ambulance. He denies chest pain. He has had no treatment as of yet other than his dialysis. Upon review of old medical records the patient has multiple visits to the ER with similar visits with CHF exacerbation. ROS All systems reviewed and are negative except as per history of present illness. Medications Home Meds Active Scripts Valsartan* (Diovan*) 160 Mg Tablet, 320 MG PO DAILY for 30 Days, #60 TAB Hold if Sysgtolic less than 120mm hg. Prov:HINA MCALLISTER MD 04/28/16 Tiotropium [place]* (Spiriva*) 18 Mcg Cap.w.dev, 1 INH INH BID for 30 Days, #60 CAP Prov:HINA MCALLISTER MD 04/28/16 Salmeterol Xinaf-Fluticasone* (Advair*) 500/50 Diskus Inhaler, 1 INH INH BID for 30 Days, #1 CAP.EC Prov:HINA MCALLISTER MD 04/28/16 Pantoprazole* (Pantoprazole*) 40 Mg Tablet.dr, 40 MG PO DAILY@06 for 30 Days, # 30 BOX Prov:HINA MCALLISTER MD 04/28/16 Nifedipine (Procardia Xl) 30 Mg Tab.er.24, 30 MG PO BID for 30 Days, #30 TAB Prov:HINA MCALLISTER MD 04/28/16 Minoxidil* (Lonitin*) 2.5 Mg Tab, 5 MG PO BID for 30 Days, #60 TAB Prov:HINA MCALLISTER MD 04/28/16 [Ipratropium 0.02% (Neb)] 0.5 MG/2.5 ML NEBU No Conflict Check, 0.5 MG HHN Q6H RESP THERAPY for 30 Days, #90 CAP Prov:HINA MCALLISTER MD 04/28/16 Epoetin Jordon (Epogen) 10,000 Units/Ml Soln, 78354 UNITS SC MoWeFr@17 for 14 Days , #30 DAYSX 3 28 Prov:HINA MCALLISTER MD 04/28/16 Clonidine Hcl* (Clonidine Hcl*) 0.1 Mg Tab, 0.1 MG PO TID for 30 Days, #90 TAB Prov:HINA MCALLISTER MD 04/28/16 Carvedilol* (Carvedilol*) 12.5 Mg Tablet, 12.5 MG PO BID for 30 Days, #60 TAB Prov:HINA MCALLISTER MD 04/28/16 Albuterol Sulfate* (Albuterol Sulfate* Neb) 0.083%-3 Ml Neb, 2.5 MG HHN Q6HWA RESP THERAPY for 30 Days, #90 BLIST PACK Prov:HINA MCALLISTER MD 04/28/16 Acetaminophen* (Tylenol*) 325 Mg Tablet, 650 MG PO Q6H Y for PAIN AND OR ELEVATED TEMP for 30 Days, #90 TAB Prov:HINA MCALLISTER MD 04/28/16 Reported Medications Sennosides* (Senna Lax*) 8.6 Mg Tablet, 1 TAB PO DAILY Y for CONSTIPATION, TAB 01/13/16 Levalbuterol* (Xopenex* HFA) 15 Gm Inha, 2 PUFFS INH Q4H Y for WHEEZING AND SOB , INHALER 01/13/16 Valsartan* (Diovan*) 320 Mg Tablet, 320 MG PO DAILY, TAB HOLD FOR SBP<110 HR<60(HTN) 01/13/16 Clopidogrel Bisulfate* (Clopidogrel Bisulfate*) 75 Mg Tablet, 75 MG PO DAILY, # 30 TAB 11/28/15 Esomeprazole Mag Trihydrate (Nexium) 40 Mg Capsule.dr, 40 MG PO DAILY, #30 CAP 11/28/15 Tamsulosin Hcl* (Tamsulosin Hcl*) 0.4 Mg Cap.er.24h, 0.4 MG PO HS, CAP 11/28/15 Levothyroxine Sodium* (Levothyroxine Sodium*) 125 Mcg Tablet, 125 MCG PO BEFORE BREAKFAST, #30 TAB 11/28/15 Discontinued Reported Medications Minoxidil* (Lonitin*) 10 Mg Tab, 10 MG PO DAILY, TAB HOLD FOR SBP<110 HR<60(HTN) 01/13/16 Clonidine Hcl* (Clonidine Hcl*) 0.1 Mg Tab, 0.1 MG PO BID, TAB FOR SBP<110: HR<60(HTN) 01/13/16 Salmeterol Xinaf/Fluticasone* (Advair*) 250-50 Diskus Inhaler, 1 INH INHALATION BID, #1 INHALER 11/28/15 Discontinued Scripts Tamsulosin Hcl* (Flomax*) 0.4 Mg Cap.er.24h, 0.4 MG PO HS for 30 Days, #30 CAP Prov:HINA MCALLISTER MD 04/28/16 Levothyroxine Sodium* (Synthroid*) 125 Mcg Tablet, 125 MCG PO BEFORE BREAKFAST for 30 Days, #30 TAB Prov:HINA MCALLISTER MD 04/28/16 Allergies Allergies: Coded Allergies: No Known Allergy (Unverified , 05/06/16) PMhx/Soc History of Surgery: No Anesthesia Reaction: No Hx Neurological Disorder: No Hx Respiratory Disorders: Yes (COPD) Hx Cardiac Disorders: Yes (HTN) Hx Psychiatric Problems: Yes (ANXIETY) Hx Miscellaneous Medical Probl: Yes (ON DIALYSIS) Hx Alcohol Use: No Hx Substance Use: No Hx Tobacco Use: Yes Smoking Status: Never smoker FmHx Family History: No diabetes Physical Exam Vitals Vital Signs Date Time Temp Pulse Resp B/P Pulse Ox O2 Delivery O2 Flow Rate FiO2 05/06/16 18:33 98.0 83 20 113/59 99 Nasal Cannula 2.0 05/06/16 17:35 88 20 122/88 98 Nasal Cannula 2.0 05/06/16 16:13 Nasal Cannula 2 05/06/16 15:19 98.1 90 20 160/89 97 Physical Exam Const: No acute distress Head: Atraumatic Eyes: Normal Conjunctiva ENT: Normal External Ears, Nose and Mouth. Neck: Full range of motion..~ No meningismus. Resp: Crackles in the bases bilaterally Cardio: Regular rate and rhythm, no murmurs Abd: Soft, non tender, non distended. Normal bowel sounds Skin: No petechiae or rashes Back: No midline or flank tenderness Ext: 1+ pitting edema bilateral lower extremities Neur: Awake and alert Psych: Normal Mood and Affect Result Diagram: 05/06/16 1610 05/06/16 1610 Results 24 hrs Laboratory Tests Test 05/06/16 16:10 Activated Partial Thromboplast Time 29.3Sec Anion Gap 17 Basophils # 0.010^3/ul Basophils % 0.2% Blood Morphology Comment Blood Urea Nitrogen 37mg/dl Calcium Level 8.3mg/dl Carbon Dioxide Level 29mmol/L Chloride Level 97mmol/L Creatinine 3.87mg/dl Eosinophils # 0.410^3/ul Eosinophils % 3.4% Glucose Level 92mg/dl Hematocrit 36.3% Hemoglobin 11.7g/dl INR International Normalized Ratio 1.02 Lymphocytes # 1.110^3/ul Lymphocytes % 10.2% Mean Corpuscular Hemoglobin 28.9pg Mean Corpuscular Hemoglobin Concent 32.3g/dl Mean Corpuscular Volume 89.6fl Mean Platelet Volume 7.3fl Monocytes # 0.610^3/ul Monocytes % 5.7% Neutrophils # 8.510^3/ul Neutrophils % 80.5% Nucleated Red Blood Cells # 0.010^3/ul Nucleated Red Blood Cells % 0.0/100WBC Platelet Count 19484^3/UL Potassium Level 3.6mmol/L Prothrombin Time 13.4Sec Prothrombin Time Ratio 1.0 Red Blood Count 4.0510^6/ul Red Cell Distribution Width 18.2% Sodium Level 139mmol/L Troponin I 0.097ng/ml White Blood Count 10.610^3/ul Current Medications Medications (Trade) Dose Ordered Sig/Bettina Route PRN Reason Start Time Stop Time Status Last Admin Dose Admin Ondansetron HCl (Zofran Inj) 4 mg ER BRIDGE PRN IV NAUSEA AND/OR VOMITING 05/06/16 16:00 05/07/16 15:59 Acetaminophen (Tylenol Tab) 650 mg ER BRIDGE PRN PO MILD PAIN/FEVER 05/06/16 16:00 05/07/16 15:59 Aspirin (Aspirin) 162 mg ONCE ONCE PO 05/06/16 18:30 05/06/16 18:31 DC Procedures/MDM EKG read by me: Rate/Rhythm: First-degree AV block at a rate of 92 Intervals: Prolonged CA interval Impression: First-degree AV block without evidence of ischemia PROCEDURE: Chest x-ray CLINICAL INDICATION: Chest pain TECHNIQUE: Chest single view COMPARISON: 04/28/2016 FINDINGS: As before there is right IJ dialysis catheter. Stable cardiomegaly and an sclerotic aortic calcification is seen. There is persistent bilateral ground- glass/alveolar beatriz hilar densities. This likely represents a vascular congestion. Superimposed pneumonia is not completely excluded. There are small bilateral pleural effusions. The overall appearance is unchanged IMPRESSION: 1. Right IJ dialysis catheter remains in place. 2. Persistent bilateral perihilar ground-glass and alveolar densities likely representing CHF. 3. Stable small bilateral pleural effusions. 4. Stable cardiomegaly and an sclerotic aortic calcification RPTAT: HH .Darnell Vilchis MD, MD Date Time Electronically viewed and signed by .Darnell Vilchis MD, MD on 05/06/2016 15:42 Patient is a 81-year-old male with dialysis who presents with shortness of breath. My concern is for acute pulmonary edema. The patient will need admission to the hospital. Dr. Mcallister is his primary doctor but is on vacation. The patient is also seen Dr. Franco in the past and therefore I will admit the patient to Dr. Franco as she was willing to admit the patient. The patient will be admitted to a telemetry bed. The patient was given aspirin empirically. The patient will likely need dialysis while he is admitted. Dr. Lake has seen the patient in the past in consultation. At this point I doubt acute STEMI or pneumonia or pneumothorax or pulmonary embolism. Departure Diagnosis: Primary Impression: Pulmonary edema Qualified Code: J81.0 - Acute pulmonary edema Additional Impression: Shortness of breath Condition: CADY Guallpa MD May 06, 2016 18:59
[2016-05-06 20:00] VITALS: BP 151/71; PULSE 101; PULSE 80; RESP 22
[2016-05-06 20:07] VITALS: BP 151/71; RESP 20
[2016-05-06] MEDS ORDERED: IPRATROPIUM (NEB) 0.5 MG/2.5 ML AMP INH PRN (20:30)
[2016-05-06] MEDS ORDERED: SENNA TAB PO PRN (20:30)
[2016-05-06] MEDS ORDERED: ZOLPIDEM 5 MG TAB PO PRN (20:30)
[2016-05-06] MEDS: TAMSULOSIN (SR) 0.4 MG CAP PO SCH (20:59)
[2016-05-06] MEDS: NIFEdipine (XL) 30 MG TAB PO SCH (20:59)
[2016-05-06] MEDS: ACCUCHECK XX SCH (20:59)
[2016-05-06] MEDS: INSULIN ASPART [NOVOLOG] 3 ML PEN SC SCH (20:59)
[2016-05-06] MEDS: ALBUTEROL 0.083% (NEB) 2.5 MG/3 ML AMP HHN PRN (21:34)
[2016-05-06] MEDS: IPRATROPIUM (NEB) 0.5 MG/2.5 ML AMP HHN PRN (21:35)
[2016-05-06] MEDS: MINOXIDIL 2.5 MG TAB PO SCH (22:15)
[2016-05-06 22:48] LABS: TROPONIN-I 0.106 ng/ml (0.00-0.12)
[2016-05-06 22:53] LABS: CK-MB 1.41 ng/ml (0.0-2.4); CREATINE KINASE < 20 IU/L (23-200)
[2016-05-06 23:11] VITALS: Ht 157.5 cm; Wt 66.2 kg
[2016-05-06 23:59] VITALS: BP 135/60; RESP 20
[2016-05-07] VITALS (17 sets, daily range): BP systolic 88–149; BP diastolic 42–69; PULSE 66–99; RESP 16–20
[2016-05-07] MEDS: FUROSEMIDE 40 MG INJ IV SCH (06:00)
[2016-05-07] MEDS: GUAIFENESIN/CODEINE 5ML CUP PO PRN ×2 (06:06→20:13)
[2016-05-07] MEDS: LEVOTHYROXINE 125 MCG TAB PO SCH (06:06)
[2016-05-07] MEDS: PANTOPRAZOLE (EC) 40 MG TAB PO SCH (06:06)
[2016-05-07] MEDS: INSULIN ASPART [NOVOLOG] 3 ML PEN SC SCH ×4 (08:00→20:16)
[2016-05-07 08:15] LABS: BASOPHILS % 0.7 % (0.0-2.0); EOSINOPHILS # 0.5 10^3/ul (0.0-0.5); EOSINOPHILS % 6.9 % (0.0-7.0); HEMATOCRIT 32.1 % (42.0-52.0); HEMOGLOBIN 10.6 g/dl (14.0-18.0); LYMPHOCYTES # 1.4 10^3/ul (0.8-2.9); LYMPHOCYTES % 21.6 % (15.0-51.0); MEAN CORPUSCULAR VOLUME 90.9 fl (82.0-101.0); MEAN PLATELET VOLUME 7.8 fl (7.4-10.4); MONOCYTE # 0.3 10^3/ul (0.3-0.9); NEUTROPHIL # 4.5 10^3/ul (1.6-7.5); NEUTROPHILS % 66.8 % (39.0-77.0); PLATELET COUNT 142 10^3/UL (140-440); RED BLOOD COUNT 3.53 10^6/ul (4.70-6.10); RED CELL DISTRIBUTION WIDTH 17.7 % (11.5-14.5); UNCORRECTED WBC 6.7 10^3/ul (4.8-10.8); WHITE BLOOD COUNT 6.7 10^3/ul (4.8-10.8)
[2016-05-07 08:25] LABS: CALCIUM 8.3 mg/dl (8.4-10.2); CREATININE 3.25 mg/dl (0.61-1.24)
[2016-05-07 08:28] LABS: POTASSIUM 2.7 mmol/L (3.5-5.1)
[2016-05-07 08:28] LABS: CREATINE KINASE < 20 IU/L (23-200)
[2016-05-07 08:30] LABS: CONDITION 1; LH ANALYZER COMMENTS 1
[2016-05-07 08:44] LABS: CK-MB 1.35 ng/ml (0.0-2.4)
[2016-05-07] MEDS: VALSARTAN 160 MG TAB PO SCH (09:00)
[2016-05-07] MEDS: MINOXIDIL 2.5 MG TAB PO SCH ×2 (09:00→20:13)
[2016-05-07] MEDS: CLOPIDOGREL 75 MG TAB PO SCH (09:00)
[2016-05-07] MEDS ORDERED: DEXTROSE 50% 50 ML SYRINGE IV PRN ×2 (09:30)
[2016-05-07] MEDS ORDERED: GLUCAGON 1 MG INJ IM PRN (09:30)
[2016-05-07] MEDS ORDERED: GLUCOSE GEL 15 GRAM TUBE BUCCAL PRN (09:30)
[2016-05-07] MEDS ORDERED: GLUCOSE GEL 15 GRAM TUBE PO PRN ×2 (09:30)
[2016-05-07 09:32] LABS: THYROID STIMULATING HORMONE 1.52 MIU/L (0.465-4.680)
[2016-05-07] MEDS: POTASSIUM CHLORIDE (SR) 20 MEQ TAB PO SCH (09:33)
[2016-05-07] MEDS: NIFEdipine (XL) 30 MG TAB PO SCH ×2 (09:46→20:16)
--- NOTE | 2016-05-07 11:00 | CONS ---
DATE OF ADMISSION: 05/06/2016 DATE OF CONSULTATION: NEPHROLOGY CONSULTATION REASON FOR CONSULTATION: ESRD care. 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 Unfortunately, his treatments are complicated by his refusal to stay on dialysis for more than 2 cheng rs at a time despite multiple recommendations from we, the glass unloading equipment tender, as well as the nurses and s ocial workers. As a result, he has had multiple admissions to [facility] with recurrent shortness of breat h, which happened again yesterday despite a, once again, shortened dialysis treatment. His history is somewhat complicated in that he also has a history of COPD and known interstitial maciej g disease. He has not had a recent echocardiogram, but one done several months ago did show intact LV function. His cardiac history is significant in that he has known coronary artery disease, and is status post left heart catheterization, coronary angiography and [employer] stenting to his right coronary in November, w ith repeat catheterization in January of last year confirming a patent stent. Currently he is awake and alert, on dialysis early this morning, and in no acute distress. PAST MEDICAL HISTORY: Please see the full dictated problem list. ALLERGIES: NONE. HABITS: Tobacco. He denies alcohol, none. CURRENT MEDICATIONS: Here in the hospital are: 1. Albuterol hand-held nebulizer p.r.n. 2. Aspirin 162 mg daily. 3. Carvedilol 12.5 mg b.i.d. 4. Clonidine p.r.n. 5. Plavix 75 mg daily. 6. Ipratropium via nebulizer. 7. Synthroid 125 mcg daily. 8. Minoxidil 5 mg b.i.d. 9. Procardia-XL 30 mg b.i.d. 10. Insulin sliding scale. 11. Pantoprazole 40 mg daily. 12. Flomax 0.4 mg daily. 13. Diovan 320 mg daily. 14. Ambien p.r.n. REVIEW OF SYSTEMS: As per HPI. PHYSICAL EXAMINATION: GENERAL: Awake, alert male, comfortable, lying in bed, on 2 liters of O2. VITAL SIGNS: He is afebrile. Blood pressure is 125/60, heart rate is 72 and regular, respirations are 12 and unlabored, O2 saturation is 100% on 2 liters. SKIN: Warm and well perfused. HEAD: Normocephalic, atraumatic. EYES: Pupils appear round and reactive. Extraocular movements are full. Sclerae are anicteric. PHARYNX: No lesions. NECK: JVP, not distended. LUNGS: Show a few fine rales at the bases bilaterally. HEART: S1, S2, regular rhythm. CHEST: Perm-A-Cath in place. ABDOMEN: Soft and nontender. No organomegaly. EXTREMITIES: No edema. LABORATORY DATA: White count 10.6, hemoglobin 11.7, hematocrit 36.3, platelet count 194,000. INR i s 1.02. Sodium 139, potassium 3.6, chloride 97, bicarbonate 29, BUN 37, creatinine 3.87, glucose 92 , calcium 8.3. Troponin is 0.097, followed by 0.106. CK is less than 20. Chest x-ray yesterday showed cardiomegaly, bilateral ground glass densities, as before, with small b ilateral pleural effusions. PROBLEM LIST: 1. Shortness of breath, most likely a combination of a component of congestive heart failure in the setting of COPD and known interstitial lung disease. 2. End-stage renal disease, with dialytic noncompliance, patient often refusing to be dialyzed more than 2 hours at a time. 3. 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 4. Hypertension. Currently controlled. 5. Interstitial lung disease, as mentioned. 6. Chronic obstructive pulmonary disease. 7. Known coronary artery disease, status post PCI with stenting of the right coronary artery in Nov, with followup coronary angiography in January of 2016 revealing patent stent. RECOMMENDATIONS: 1. Repeat echocardiogram to assess LV function. 2. Dialysis now, ongoing, with vigorous ultrafiltration as tolerated. 3. Further recommendations pending response to above. Dictated By: ELENO MIR MD, MM/NTS Conf#: [id number] DID#: [id number]
[2016-05-07] MEDS: IPRATROPIUM (NEB) 0.5 MG/2.5 ML AMP HHN PRN (11:19)
[2016-05-07] MEDS: ALBUTEROL 0.083% (NEB) 2.5 MG/3 ML AMP HHN PRN (11:20)
--- NOTE | 2016-05-07 13:16 | HP ---
DATE OF ADMISSION: 05/06/[address] Mcallister. HISTORY OF PRESENT ILLNESS: This is Dr. Mcallister's patient who comes from [facility]. He comes in for shortness of breath after having dialysis at the D[facility]. No t enough dialysis. The patient started complaining of increasing shortness of breath and discomfort . Therefore, he was transferred to the hospital with a diagnosis of, in the emergency room, CHF exa cerbation. HALFWAY MEDICATIONS: As follows: 1. Tylenol on p.r.n. basis. 2. Albuterol p.r.n. basis. 3. Breathing treatments. 4. Senna daily. 5. Clonidine 0.1 every 8 hours. 6. Nifedipine 30 mg twice a day. 7. Tamsulosin 0.4 at bedtime. 8. Minoxidil 5 mg b.i.d. 9. Coreg 12.5 twice a day. 10. Valsartan 320 mg once a day. 11. Plavix 75 once a day. 12. Nexium 40 once a day. PAST MEDICAL HISTORY: End-stage renal disease. He is 3 times a week dialysis. He has history of r espiratory distress, COPD. He has history of hypertension, depression, tobacco use in the past, and he has also history of anxiety. ALLERGIES: NO KNOWN DRUG ALLERGIES. REVIEW OF SYSTEMS: The patient complains of headaches. Denies any chest pain, palpitation, or disc omfort over the heart. He denies any sputum production, but he complains of cough. He denies any a bdominal pain, nausea, vomiting, diarrhea. He denies any urgency, hesitancy, or pain during urinati on. He urinates a little, gives out a little bit of urine, according to him, and he denies of any a cute neurological changes. PHYSICAL EXAMINATION: GENERAL: The patient is alert and oriented x3 in no acute distress, mild shortness of breath. VITAL SIGNS: Blood pressure 125/60, heart rate is 66, respiratory rate 20, and afebrile with satura tion of 100%. The patient is having dialysis at this time. HEENT: Atraumatic, normocephalic. Pupils are equal and reactive to light. Extraocular muscles are intact. Nares clear. No obstruction, no deviation of the septum. Oral cavity: Normal oral hygie ne. Ear canals are clear. No signs of inflammation or infection. Tympanic membranes are intact. NECK: Supple. No JVD, no surgical scars, no lymph nodes palpable over the neck. CHEST: AP contour within normal limits. He has a dialysis catheter on the chest. He has crackles over the lungs, over the bases of the lungs with mild expiratory wheezes, otherwise negative. ABDOMEN: Soft, positive bowel sounds, no hepatosplenomegaly, no masses palpable over the abdomen. No rebound tenderness. EXTREMITIES: No edema, clubbing or cyanosis of the extremities. LABORATORIES: Today CBC: White blood cells 6.7, hemoglobin 10.6, hematocrit 32.1. His platelet co unts are 142. Chemistry: BUN is 28, creatinine 3.25, potassium 2.7, low sodium 140. Today's chest x-ray not done yet, yesterday's shows some CHF. ADMITTING DIAGNOSES: 1. Congestive heart failure exacerbation. 2. Shortness of breath. 3. End-stage renal disease. 4. Gastroesophageal reflux disease. 5. Hypertension. 6. Atherosclerotic vascular disease. The patient is having dialysis today. We will also give him Lasix, will supplement his potassium an d possibly will discharge tomorrow. Dictated By: LANDRY RENTERIA/CAMILO Conf#: [id number] DID#: [id number]
--- NOTE | 2016-05-07 14:57 | RADRPT ---
PROCEDURE: XR Chest. CLINICAL INDICATION: Congestive heart failure TECHNIQUE: Chest AP portable. COMPARISON: 05/06/2016 FINDINGS: Right internal jugular tunnel dialysis catheter. The mediastinal structures are unremarkable. There is calcification of the thoracic aorta (consiste nt with atherosclerosis). There is moderate cardiac enlargement. There is no change in the congest siomara heart failure. There is a LLL patchy consolidation. There are trace bilateral pleural effusion s. There are senescent changes of the axial skeleton. IMPRESSION: Moderate cardiac enlargement. No change in congestive heart failure. LLL patchy consolidation. Trace bilateral pleural effusions. RPTAT: HGDB .Glenn Suresh MD, MD Date Time Electronically viewed and signed by .Glenn Suresh MD, on 05/07/2016 14:57 .B/
--- NOTE | 2016-05-07 16:50 | RADRPT ---
Echocardiogram Report Patient Name: DORI ARNDT Gender: Male Date: 1935 Study Date: 07-May-2016 Neurosurgery Spine Physician: Kerri [facility] Location: 5560 Ref. Physician: ELENO MIR Quality: Limited Procedures: Transthoracic echocardiogram with complete 2D, M-Mode, and doppler examination. Indications: R/O Pericardial Effusion and Evaluate LV Function. 2D/M Mode Doppler Measurement Value Normal Ranges Measurement Value Normal Ranges LVIDd 2D 5.1 3.5 - 5.6 cm AV Peak Brent 1.9 m/sec LVIDs 2D 3.6 2.1 - 4.1 cm AV Peak PG 14.0 mmHg FS 2D 28.9 % LVOT Peak Brent 1.4 m/sec LVPWd 2D 1.3 0.6 - 1.1 cm LVOT Peak PG 8.0 mmHg IVSd 2D 1.3 0.6 - 1.1 cm MV E Peak Brent 1.2 m/sec IVS/LVPW 2D 1.0 MV A Peak Brent 0.9 m/sec AoR Diam 2D 3.1 2.0 - 3.7 cm MV E/A 1.4 LA/Ao 2D 1 0 - 1 MV Decel Time 264 msec EDV 2D 130.0 cm3 MV E/A 1.4 ESV 2D 46.7 cm3 LA Dimen 2D 4.0 2.3 - 4.0 cm Findings Left Ventricle: Normal left ventricular systolic function. Normal left ventricular cavity size. Mild concentric left ventricular hypertrophy. Ejection fraction is visually estimated at 65 %. Tissue Doppler/Mitral Doppler indices are consistent with pseudonormalization with mildly elevated left atrial pressure (Stage II diastolic dysfunction). E/E`=18. Right Ventricle: Normal right ventricular size. Normal right ventricular systolic function. Prominent moderator band - normal variant. Left Atrium: Upper limit of normal left atrial size. Right Atrium: The right atrium is normal in size. Mitral Valve: Normal appearance of the mitral valve. Mild mitral annular calcification. Aortic Valve: No significant aortic stenosis or insufficiency. Aortic cusps appear mildly calcified. Tricuspid Valve: Normal appearance of the tricuspid valve. Normal appearance and function of the tricuspid valve with trace physiologic regurgitation. Unable to obtain RVSP due to minimal presence of tricuspid regurgitation. There is trace tricuspid regurgitation. Pulmonic Valve: Pulmonic valve not well visualized. Pericardium: Small pericardial effusion. No echocardiographic evidence to suggest pericardial tamponade. Aorta: Normal aortic root. IVC: Normal size and normal respiratory collapse consistent with normal right atrial pressure. Conclusions Normal left ventricular systolic function. Normal left ventricular cavity size. Mild concentric left ventricular hypertrophy. Ejection fraction is visually estimated at 65 %. Tissue Doppler/Mitral Doppler indices are consistent with pseudonormalization with mildly elevated left atrial pressure (Stage II diastolic dysfunction). E/E`=18. Normal right ventricular size. Normal right ventricular systolic function. Prominent moderator band - normal variant. Upper limit of normal left atrial size. No significant aortic stenosis or insufficiency. Aortic cusps appear mildly calcified. Normal appearance of the tricuspid valve. Normal appearance and function of the tricuspid valve with trace physiologic regurgitation. Unable to obtain RVSP due to minimal presence of tricuspid regurgitation. There is trace tricuspid regurgitation. Small pericardial effusion. No echocardiographic evidence to suggest pericardial tamponade. Normal size and normal respiratory collapse consistent with normal right atrial pressure. No Vegetation, masses, or thrombi seen. Electronically Signed By: Chema Craig 07-May-2016 16:49:50 -0800 Patient Name: DORI ARNDT Study Date: 07-May-2016 [id number]
[2016-05-07] MEDS: TAMSULOSIN (SR) 0.4 MG CAP PO SCH (20:13)
[2016-05-07] MEDS: ACCUCHECK XX SCH (20:16)
[2016-05-08] VITALS (17 sets, daily range): BP systolic 101–160; BP diastolic 35–78; PULSE 68–103; RESP 18–20
[2016-05-08] MEDS: PANTOPRAZOLE (EC) 40 MG TAB PO SCH (05:37)
[2016-05-08] MEDS: FUROSEMIDE 40 MG INJ IV SCH (05:37)
--- NOTE | 2016-05-08 07:41 | CONS ---
Date/Time of Note Date/Time of Note DATE: 05/08/16 TIME: 07:39 Assessment/Plan Assessment/Plan Additional Assessment/Plan 1. 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 BP controlled 4. Anemia, not problematic Consultation Date/Type/Reason Admit Date/Time May 06, 2016 at 15:55 Initial Consult Date Detailed Summary Respiratory: shortness of breath (this am and sl non-prod cough) Cardiovascular: No chest pain Gastrointestinal: no complaints Genitourinary: no complaints Exam/Review of Systems Vital Signs Vitals Vital Signs Date Time Temp Pulse Resp B/P Pulse Ox O2 Delivery O2 Flow Rate FiO2 05/08/16 04:15 103 05/08/16 01:02 2.0 05/08/16 00:00 98.3 18 135/66 97 Nasal Cannula Intake and Output 05/07/16 05/07/16 05/08/16 15:00 23:00 07:00 Intake Total 500 ml 850 ml Output Total 2800 ml Balance -2300 ml 850 ml Exam Neck: No jvd Respiratory: other (rales and rhonchi and few wheezes bilat) Cardiovascular: regular rate and rhythm Gastrointestinal: soft Extremities: No edema (and no calf tend) Results Result Diagram: 05/07/16 0640 05/07/16 0645 Results 24 hrs Laboratory Tests Test 05/07/16 07:54 05/07/16 12:26 05/07/16 17:13 05/07/16 19:14 Bedside Glucose 118 152 108 122 Medications Medications Current Medications Acetaminophen (Tylenol Tab) 650 mg Q6H PRN PO PAIN AND OR ELEVATED TEMP; Start 05/06/16 at 20:30 Carvedilol (Coreg) 12.5 mg BID PO Last administered on 05/06/16 20:59; Admin Dose 12.5 MG; Start 05/06/16 at 21:00 Clonidine (Catapres) 0.1 mg Q6H PRN PO for SBP > 160; Start 05/06/16 at 20:30 Clopidogrel Bisulfate (plaVIX) 75 mg DAILY PO ; Start 05/07/16 at 09:00 Minoxidil (Loniten) 5 mg BID PO Last administered on 05/07/16 20:13; Admin Dose 5 MG; Start 05/06/16 at 21:00 Nifedipine (Procardia Xl) 30 mg BID PO Last administered on 05/07/16 09:46; Admin Dose 30 MG; Start 05/06/16 at 21:00 Pantoprazole (Protonix Tab) 40 mg DAILY@06 PO Last administered on 05/08/16 05 :37; Admin Dose 40 MG; Start 05/07/16 at 06:00 Senna (Senokot) 1 tab DAILY PRN PO CONSTIPATION; Start 05/06/16 at 20:30 Tamsulosin HCl (Flomax) 0.4 mg HS PO Last administered on 05/07/16 20:13; Admin Dose 0.4 MG; Start 05/06/16 at 21:00 Valsartan (Diovan) 320 mg DAILY PO ; Start 05/07/16 at 09:00 Diagnostic Test (Pha) (Accucheck) 1 ea 02 XX ; Start 05/07/16 at 02:00 Zolpidem Tartrate (Ambien) 5 mg HS PRN PO INSOMNIA; Start 05/06/16 at 20:30 Guaifenesin/ Codeine Phosphate (Robitussin Ac Liquid Cup) 5 ml TID PRN PO COUGH Last administered on 05/07/16 20:13; Admin Dose 5 ML; Start 05/06/16 at 21:00 Furosemide (Lasix) 40 mg DAILY@06 IV Last administered on 05/08/16 05:37; Admin Dose 40 MG; Start 05/07/16 at 06:00 Potassium Chloride (Klor-Con 20) 20 meq DAILY PO Last administered on 09:33; Admin Dose 20 MEQ; Start 05/07/16 at 09:00 Miscellaneous Information 1 ea NOTE XX ; Start 05/07/16 at 09:30 Glucose (Glutose) 15 gm Q15M PRN PO DECREASED GLUCOSE; Start 05/07/16 at 09:30 Glucose (Glutose) 22.5 gm Q15M PRN PO DECREASED GLUCOSE; Start 05/07/16 at 09: 30 Dextrose (D50w Syringe) 25 ml Q15M PRN IV DECREASED GLUCOSE; Start 05/07/16 at 09:30 Dextrose (D50w Syringe) 50 ml Q15M PRN IV DECREASED GLUCOSE; Start 05/07/16 at 09:30 Glucagon (Glucagen) 1 mg Q15M PRN IM DECREASED GLUCOSE; Start 05/07/16 at 09:30 Glucose (Glutose) 15 gm Q15M PRN BUCCAL DECREASED GLUCOSE; Start 05/07/16 at 09 :30 Potassium Chloride (Klor-Con 10) 30 meq ONCE ONCE PO ; Start 05/08/16 at 08:00 ; Stop 05/08/16 at 08:01; Status UNTRUE BAILEY MD May 08, 2016 07:41
[2016-05-08] MEDS: LEVOTHYROXINE 125 MCG TAB PO SCH (07:48)
[2016-05-08] MEDS: INSULIN ASPART [NOVOLOG] 3 ML PEN SC SCH ×2 (07:49→12:00)
[2016-05-08] MEDS: GUAIFENESIN/CODEINE 5ML CUP PO PRN (07:54)
[2016-05-08] MEDS: VALSARTAN 160 MG TAB PO SCH (07:57)
[2016-05-08] MEDS: NIFEdipine (XL) 30 MG TAB PO SCH (07:57)
[2016-05-08] MEDS: MINOXIDIL 2.5 MG TAB PO SCH (07:57)
[2016-05-08] MEDS: CLOPIDOGREL 75 MG TAB PO SCH (07:57)
[2016-05-08] MEDS ORDERED: POTASSIUM CHLORIDE (SR) 10 MEQ TAB PO ONE (08:00)
[2016-05-08] MEDS: IPRATROPIUM (NEB) 0.5 MG/2.5 ML AMP HHN PRN ×2 (08:24→14:53)
[2016-05-08] MEDS: ALBUTEROL 0.083% (NEB) 2.5 MG/3 ML AMP HHN PRN ×2 (08:24→14:53)
[2016-05-08 08:35] LABS: BASOPHILS % 0.5 % (0.0-2.0); EOSINOPHILS # 0.6 10^3/ul (0.0-0.5); EOSINOPHILS % 7.1 % (0.0-7.0); HEMATOCRIT 32.1 % (42.0-52.0); HEMOGLOBIN 10.5 g/dl (14.0-18.0); LYMPHOCYTES # 2.3 10^3/ul (0.8-2.9); MEAN CORPUSCULAR HEMOGLOBIN 29.8 pg (29.0-33.0); MEAN CORPUSCULAR HGB CONC 32.8 g/dl (32.0-37.0); MEAN CORPUSCULAR VOLUME 90.8 fl (82.0-101.0); MEAN PLATELET VOLUME 7.7 fl (7.4-10.4); MONOCYTE # 0.7 10^3/ul (0.3-0.9); NEUTROPHIL # 5.3 10^3/ul (1.6-7.5); NEUTROPHILS % 58.4 % (39.0-77.0); PLATELET COUNT 153 10^3/UL (140-440); RED BLOOD COUNT 3.54 10^6/ul (4.70-6.10); RED CELL DISTRIBUTION WIDTH 17.2 % (11.5-14.5)
[2016-05-08 08:37] LABS: POTASSIUM 4.3 mmol/L (3.5-5.1)
[2016-05-08 08:39] LABS: CREATININE 5.16 mg/dl (0.61-1.24)
[2016-05-08 08:40] LABS: CALCIUM 8.3 mg/dl (8.4-10.2)
[2016-05-08 09:19] LABS: CONDITION 1; LH ANALYZER COMMENTS 1
[2016-05-08] MEDS: POTASSIUM CHLORIDE (SR) 20 MEQ TAB PO SCH (10:07)
--- NOTE | 2016-05-08 16:16 | DS ---
DATE OF ADMISSION: 05/06/2016 DATE OF DISCHARGE: 05/08/2016 REFERRING PHYSICIAN: LANDRY MCCLURE MD. HISTORY OF PRESENT ILLNESS: The patient is a 81-year-old male who came in from [facility]term [facility] after dialysis for shortness of breath. Apparently during and after dialysis, the patient rain nued having shortness of breath. Therefore, he was transferred to the emergency room. In the emerg ency room, the patient still continued to be on shortness of breath. He was given Lasix and brought in for repeat dialysis. The patient is a frequent flyer to the hospital from the assisted for shortness of breath. Apparently, patient is also noncompliant. The patient with medication, lab o rders and dialysis. He comes in with shortness of breath. He receives dialysis on 05/06/2016. He refused his medication on 05/06/2016. He also refused some of his labs initially. I saw the patien t and he tolerated dialysis well. Therefore, on 05/08/2016, repeat dialysis and after dialysis, the patient will be discharged back to the longterm [facility]. Labs are stable, only BMP is elev ated, which is understandable due to his CHF and volume overload. Therefore on 05/08/2016, patient discharged in stable condition back to longterm [facility] to continue his hemodialysis. blood pressure medications and what Dr. Mcallister will follow with the patient according to his schedule. DISCHARGE DIAGNOSIS: 1. Congestive heart failure, volume overload. 2. Chronic kidney disease. 3. End-stage renal disease with dialysis 3 times a week. 4. Chronic obstructive pulmonary disease. 5. Atherosclerotic vascular disease. Dictated By: LELIA MARINO/CAMILO Conf#: [id number] DID#: [id number]
== END 2016-05-08 17:50 ==
LOC: E/R 14:59 → MS4 15:55 → UNDOADMOB 19:40 → MS4 19:40
PROVIDERS: ADMIT Family Medicine; ATTEND Family Medicine
DX: I50.9 Heart failure, unspecified (principal); I12.0 Hypertensive chronic kidney disease with stage 5 chronic kidney disease or end stage renal disease; N18.6 End stage renal disease; Z99.2 Dependence on renal dialysis; K21.9 Gastro-esophageal reflux disease without esophagitis; D64.9 Anemia, unspecified; J44.9 Chronic obstructive pulmonary disease, unspecified; I25.10 Atherosclerotic heart disease of native coronary artery without angina pectoris
CPT/HCPCS: 36415; 71010; 80048; 82550; 82553; 82962; 83036; 83880; 84443; 84484; 85025; 85610; 85730; 87081; 90935; 93005; 93308; 94640; 94664; 99285; G0378; J1815; J1940

== ENCOUNTER 2016-05-12 09:11 | Inpatient (IN) | payer MEDICARE, BC ==
[~2016-05-12] VITALS: Ht 162.6 cm; Wt 65.5 kg
[2016-05-12] VITALS (18 sets, daily range): BP systolic 97–145; BP diastolic 53–69; PULSE 30–121; RESP 20–32; TEMP 99; Ht 162.6 cm; Wt 65.5 kg
[~2016-05-12 09:11] MED LIST changes: -ADV25050 INHALATION; -LEVO125T PO; -MIN10 PO; -TAMS-14 PO
[2016-05-12] MEDS ORDERED: FUROSEMIDE 40 MG INJ IV STA (09:14)
[2016-05-12] MEDS ORDERED: NITROGLYCERIN 2% 1 GM OINT PKT TD STA (09:14)
--- NOTE | 2016-05-12 09:57 | RADRPT ---
PROCEDURE: XR Chest. CLINICAL INDICATION: pain TECHNIQUE: Single portable view of the chest was obtained COMPARISON: 05/07/2016 FINDINGS: There are worsening patchy right upper lobe , left perihilar and bilateral lower lobe infiltrates. There is a small right pleural effusion. The thoracic aorta is calcified. There is mild cardiomega ly. There is a right-sided Perma-Cath in place.. The heart, lungs and mediastinum are otherwise unc hanged. . RPTAT: AA IMPRESSION: Worsening patchy right upper lobe and bilateral lower lobe infiltrates. No other significant change. .Dhiraj Gonzalez MD, Date Time Electronically viewed and signed by .Dhiraj Gonzalez MD, on 05/12/2016 09:57 .S/
[2016-05-12 09:59] LABS: INR 1.21; PROTIME 15.4 Sec (12.2-14.2); PT RATIO 1.2
[2016-05-12 10:00] LABS: PARTIAL THROMBOPLASTIN TIME 30.8 Sec (25.0-35.0); POTASSIUM 4.8 mmol/L (3.5-5.1)
[2016-05-12] MEDS ORDERED: ACETAMINOPHEN 325 MG TAB PO PRN (10:00)
[2016-05-12] MEDS ORDERED: ONDANSETRON 4 MG INJ IV PRN (10:00)
[2016-05-12 10:02] LABS: CREATININE 6.87 mg/dl (0.61-1.24)
[2016-05-12 10:03] LABS: CALCIUM 8.5 mg/dl (8.4-10.2)
[2016-05-12 10:11] LABS: BASOPHILS % 0.2 % (0.0-2.0); EOSINOPHILS # 0.1 10^3/ul (0.0-0.5); EOSINOPHILS % 0.4 % (0.0-7.0); HEMATOCRIT 34.4 % (42.0-52.0); HEMOGLOBIN 11.1 g/dl (14.0-18.0); LYMPHOCYTES % 4.8 % (15.0-51.0); MEAN CORPUSCULAR HGB CONC 32.4 g/dl (32.0-37.0); MEAN CORPUSCULAR VOLUME 89.6 fl (82.0-101.0); MEAN PLATELET VOLUME 7.5 fl (7.4-10.4); MONOCYTE # 1.5 10^3/ul (0.3-0.9); MONOCYTES % 7.8 % (0.0-11.0); NEUTROPHIL # 17.2 10^3/ul (1.6-7.5); NEUTROPHILS % 86.8 % (39.0-77.0); PLATELET COUNT 339 10^3/UL (140-440); RED BLOOD COUNT 3.83 10^6/ul (4.70-6.10); UNCORRECTED WBC 19.8 10^3/ul (4.8-10.8); WHITE BLOOD COUNT 19.8 10^3/ul (4.8-10.8)
[2016-05-12 10:12] LABS: TROPONIN-I 0.037 ng/ml (0.00-0.12)
[2016-05-12 10:15] LABS: CONDITION 1; LH ANALYZER COMMENTS 1
[2016-05-12 10:44] LABS: AADO2 Arterial 132.6 mmHg (7.0-24.0); Allen Test ACCEPTAB; Arterial Base Excess -1.4 mmol/L (-3.0-3); Arterial COHb 0.3 % (0.0-3.0); Arterial Fraction of Oxyhgb 97.1 % (93.0-99.0); Arterial HCO3 23.9 mmol/L (22.0-26.0); Arterial MetHb 0.3 % (0.0-1.5); Arterial Total Hemglobin 11.6 g/dl (12.0-18.0); Blood Gas IEPAP 15/5; MODE MASK - BIPAP
--- NOTE | 2016-05-12 13:41 | ERA ---
ER Documentation Chief Complaint Date/Time DATE: 05/12/16 TIME: 13:40 Chief Complaint copd exascerbation sob rales when auscultated HPI Patient is a 81-year-old male with CHF and dialysis who presents with shortness of breath. Please note the history and physical exam is limited secondary to the patient's shortness of breath at this time. The patient was brought in by ambulance. He came from [facility]. He needed CPAP by paramedics and he was also given 2 sprays of nitroglycerin. He had dialysis on Wednesday and is due for dialysis today. He had shortness of breath which started today. He makes a small amount of urine. His primary doctor is Dr. Castillo. ROS All systems reviewed and are negative except as per history of present illness. Medications Home Meds Active Scripts Tiotropium [place]* (Spiriva*) 18 Mcg Cap.w.dev, 1 INH INH BID for 30 Days, #60 CAP Prov:HINA CASTILLO MD 04/28/16 Salmeterol Xinaf-Fluticasone* (Advair*) 500/50 Diskus Inhaler, 1 INH INH BID for 30 Days, #1 CAP.EC Prov:HINA CASTILLO MD 04/28/16 Pantoprazole* (Pantoprazole*) 40 Mg Tablet.dr, 40 MG PO DAILY@06 for 30 Days, # 30 BOX Prov:HINA CASTILLO MD 04/28/16 Nifedipine (Procardia Xl) 30 Mg Tab.er.24, 30 MG PO BID for 30 Days, #30 TAB Prov:HINA CASTILLO MD 04/28/16 Minoxidil* (Lonitin*) 2.5 Mg Tab, 5 MG PO BID for 30 Days, #60 TAB Prov:HINA CASTILLO MD 04/28/16 [Ipratropium 0.02% (Neb)] 0.5 MG/2.5 ML NEBU No Conflict Check, 0.5 MG HHN Q6H RESP THERAPY for 30 Days, #90 CAP Prov:HINA CASTILLO MD 04/28/16 Epoetin Jordon (Epogen) 10,000 Units/Ml Soln, 17556 UNITS SC MoWeFr@17 for 14 Days , #30 DAYSX 3 28 Prov:HINA CASTILLO MD 04/28/16 Clonidine Hcl* (Clonidine Hcl*) 0.1 Mg Tab, 0.1 MG PO TID for 30 Days, #90 TAB Prov:HINA CASTILLO MD 04/28/16 Carvedilol* (Carvedilol*) 12.5 Mg Tablet, 12.5 MG PO BID for 30 Days, #60 TAB Prov:HINA CASTILLO MD 04/28/16 Albuterol Sulfate* (Albuterol Sulfate* Neb) 0.083%-3 Ml Neb, 2.5 MG HHN Q6HWA RESP THERAPY for 30 Days, #90 BLIST PACK Prov:HINA CASTILLO MD 04/28/16 Acetaminophen* (Tylenol*) 325 Mg Tablet, 650 MG PO Q6H Y for PAIN AND OR ELEVATED TEMP for 30 Days, #90 TAB Prov:HINA CASTILLO MD 04/28/16 Reported Medications Sennosides* (Senna Lax*) 8.6 Mg Tablet, 1 TAB PO DAILY Y for CONSTIPATION, TAB 01/13/16 Levalbuterol* (Xopenex* HFA) 15 Gm Inha, 2 PUFFS INH Q4H Y for WHEEZING AND SOB , INHALER 01/13/16 Valsartan* (Diovan*) 320 Mg Tablet, 320 MG PO DAILY, TAB HOLD FOR SBP<110 HR<60(HTN) 01/13/16 Clopidogrel Bisulfate* (Clopidogrel Bisulfate*) 75 Mg Tablet, 75 MG PO DAILY, # 30 TAB 11/28/15 Tamsulosin Hcl* (Tamsulosin Hcl*) 0.4 Mg Cap.er.24h, 0.4 MG PO HS, CAP 11/28/15 Levothyroxine Sodium* (Levothyroxine Sodium*) 125 Mcg Tablet, 125 MCG PO BEFORE BREAKFAST, #30 TAB 11/28/15 Discontinued Reported Medications Esomeprazole Mag Trihydrate (Nexium) 40 Mg Capsule.dr, 40 MG PO DAILY, #30 CAP 11/28/15 Minoxidil* (Lonitin*) 10 Mg Tab, 10 MG PO DAILY, TAB HOLD FOR SBP<110 HR<60(HTN) 01/13/16 Clonidine Hcl* (Clonidine Hcl*) 0.1 Mg Tab, 0.1 MG PO BID, TAB FOR SBP<110: HR<60(HTN) 01/13/16 Salmeterol Xinaf/Fluticasone* (Advair*) 250-50 Diskus Inhaler, 1 INH INHALATION BID, #1 INHALER 11/28/15 Discontinued Scripts Valsartan* (Diovan*) 160 Mg Tablet, 320 MG PO DAILY for 30 Days, #60 TAB Hold if Sysgtolic less than 120mm hg. Prov:HINA CASTILLO MD 04/28/16 Tamsulosin Hcl* (Flomax*) 0.4 Mg Cap.er.24h, 0.4 MG PO HS for 30 Days, #30 CAP Prov:HINA CASTILLO MD 04/28/16 Levothyroxine Sodium* (Synthroid*) 125 Mcg Tablet, 125 MCG PO BEFORE BREAKFAST for 30 Days, #30 TAB Prov:HINA CASTILLO MD 04/28/16 Allergies Allergies: Coded Allergies: No Known Allergy (Unverified , 05/12/16) PMhx/Soc History of Surgery: Yes (angiogram, permacath placement, AVF placement) Anesthesia Reaction: No Hx Neurological Disorder: No Hx Respiratory Disorders: Yes (CHF) Hx Cardiac Disorders: Yes (HTN, CHF, ESRD, Anemia, BPH) Hx Psychiatric Problems: No Hx Miscellaneous Medical Probl: No Hx Alcohol Use: No Hx Substance Use: No Hx Tobacco Use: No Smoking Status: Never smoker FmHx Family History: No diabetes Physical Exam Vitals Vital Signs Date Time Temp Pulse Resp B/P Pulse Ox O2 Delivery O2 Flow Rate FiO2 05/12/16 09:26 118 100 50 05/12/16 09:24 8 05/12/16 09:23 99.2 120 32 95/56 98 Physical Exam Const: Moderate distress secondary to shortness of breath Head: Atraumatic Eyes: Normal Conjunctiva ENT: Normal External Ears, Nose and Mouth. Neck: Full range of motion..~ No meningismus. Resp: Decreased breath sounds bilaterally with tachypnea and accessory muscle use Cardio: Regular rate and rhythm, no murmurs Abd: Soft, non tender, non distended. Normal bowel sounds Skin: Pale Back: No midline or flank tenderness Ext: No cyanosis, or edema Neur: Awake and alert Psych: Normal Mood and Affect Result Diagram: 05/12/1625 05/12/1625 Results 24 hrs Laboratory Tests Test 05/12/16 09:14 05/12/16 09:25 Arterial Blood HCO3 23.9mmol/L Arterial Blood Base Excess -1.4mmol/L Arterial Blood Oxygen Saturation 97.7mmHG Nikita Test ACCEPTAB Arterial Blood Gas Puncture Site Right Radial Arterial Blood Carboxyhemoglobin 0.3% Arterial Blood Date Drawn 05/12/2016 10:30:26 AM Arterial Blood Methemoglobin 0.3% Arterial Blood pCO2 (Temp correct) 42.4mmhg Arterial Blood pH (Temp corrected) 7.369 Arterial Blood pO2 (Temp corrected) 103.8mmHG Blood Gas A-a O2 Differential 132.6mmHg Blood Gas Actual Respiration Rate 36 Blood Gas IPAP/EPAP Ratio 15/5 Blood Gas Modality MASK - BIPAP Blood Gas Notified Time 05/12/2016 10:44:11 AM Blood Gas Notified Whom JLD Blood Gas Respiration Rate 10.0 Blood Gas Specimen Source Blood arterial Blood Gas Temperature 37.0C FiO2 40.0% Oxyhemoglobin Percent 97.1% Total Hemoglobin 11.6g/dl Activated Partial Thromboplast Time 30.8Sec Anion Gap 20 Basophils # 0.010^3/ul Basophils % 0.2% Blood Morphology Comment Blood Urea Nitrogen 70mg/dl Calcium Level 8.5mg/dl Carbon Dioxide Level 27mmol/L Chloride Level 95mmol/L Creatinine 6.87mg/dl Eosinophils # 0.110^3/ul Eosinophils % 0.4% Glucose Level 136mg/dl Hematocrit 34.4% Hemoglobin 11.1g/dl INR International Normalized Ratio 1.21 Lymphocytes # 1.010^3/ul Lymphocytes % 4.8% Mean Corpuscular Hemoglobin 29.0pg Mean Corpuscular Hemoglobin Concent 32.4g/dl Mean Corpuscular Volume 89.6fl Mean Platelet Volume 7.5fl Monocytes # 1.510^3/ul Monocytes % 7.8% Neutrophils # 17.210^3/ul Neutrophils % 86.8% Nucleated Red Blood Cells # 0.010^3/ul Nucleated Red Blood Cells % 0.0/100WBC Platelet Count 47891^3/UL Potassium Level 4.8mmol/L Prothrombin Time 15.4Sec Prothrombin Time Ratio 1.2 Red Blood Count 3.8310^6/ul Red Cell Distribution Width 17.0% Sodium Level 137mmol/L Troponin I 0.037ng/ml White Blood Count 19.810^3/ul Current Medications Medications (Trade) Dose Ordered Sig/Bettina Route PRN Reason Start Time Stop Time Status Last Admin Dose Admin Nitroglycerin (Nitroglycerin 2% Oint) 1 inch ONCE STAT TD 05/12/16 09:14 05/12/16 09:16 DC 05/12/16 09:52 Furosemide (Lasix) 40 mg ONCE STAT IV 05/12/16 09:14 05/12/16 09:16 DC 05/12/16 09:51 Procedures/MDM EKG read by me: Rate/Rhythm: Regular rate and rhythm at a normal rate Intervals: Normal Impression: No evidence of ischemia or arrhythmia PROCEDURE: XR Chest. CLINICAL INDICATION: pain TECHNIQUE: Single portable view of the chest was obtained COMPARISON: 05/07/2016 FINDINGS: There are worsening patchy right upper lobe , left perihilar and bilateral lower lobe infiltrates. There is a small right pleural effusion. The thoracic aorta is calcified. There is mild cardiomegaly. There is a right-sided Perma- Cath in place.. The heart, lungs and mediastinum are otherwise unchanged. . RPTAT: AA IMPRESSION: Worsening patchy right upper lobe and bilateral lower lobe infiltrates. No other significant change. .Dhiraj Gonzalez MD, MD Date Time Electronically viewed and signed by .Dhiraj Gonzalez MD, MD on 05/12/2016 09: 57 Patient is a 81-year-old male presents with shortness of breath. He required BiPAP therapy for respiratory failure. The patient likely has pulmonary edema and CHF. X-ray does show worsening infiltrate of pneumonia however. The patient has an elevated white blood cell count of 19.8. I ordered blood cultures and lactic acid after seeing the results of the chest x-ray. The patient was given broad-spectrum antibiotics with vancomycin and cefepime. Unfortunately at this point I do not think fluids would be appropriate given his history of dialysis and congestive heart failure as I worry about fluid overload. Admit MDM: Patient's infectious symptoms have not stabilized and the patient is at risk of rapid decompensation. The patient will be admitted for careful hydration, antibiotic therapy, and infectious source control. Severe Sepsis criteria: Infectious source: Pneumonia End organ damage indicated by: Respiratory failure Sepsis Management: Time of recognition of sepsis: 09:57 Within 3 hours of recognition: Blood cultures x 2 before broad-spectrum antibiotics: Yes 30 ml/kg NS bolus Completed Initial lactate pending Repeat lactate pending Time of recognition of septic shock: No septic shock Septic Shock Assessment: Any lactic acid > 4.0 No Persistent hypotension (SBP < 90 or 40 mmHg drop, MAP < 65) despite 30 mL/kg IV fluid bolus No Volume Re-assessment for Septic Shock (post 30 ml/kg bolus): No septic shock at this time Persistent Hypotension Treatment: Comfort care No Central line Not Required Vasopressor started Not required I considered further perfusion assessment with CVP measurement, SCVO2, bedside ultrasound volume assessment, passive leg raise, trial of further fluid bolus. And proceeded with 30 ml/kg fluid bolus of NSS, broad spectrum antibiotics, and admission. The patient required BiPAP therapy for respiratory failure. The patient is pending lactic acid at this time. Accepting Care Team Current data and ongoing care discussed. Admitting Physician: Dr. Castillo the patient's primary doctor Crime Scene Investigator(s): None Outstanding Data: Culture results and lactic acids Critical Care: Critical care time 35 minutes excluding all billable procedures Emergent fluid management while maintaining close respiratory support. Provision of immediate and broad-spectrum antibiotic therapy. Simultaneous assessment for possible sources in order to direct targeted therapy. Consideration for invasive and chemical support to prevent cardiopulmonary collapse. Departure Diagnosis: Primary Impression: Respiratory failure Qualified Code: J96.00 - Acute respiratory failure, unspecified whether with hypoxia or hypercapnia Additional Impressions: Shortness of breath CHF (congestive heart failure) Qualified Code: I50.9 - Acute congestive heart failure, unspecified congestive heart failure type Condition: Serious CADY AREVALO MD May 12, 2016 13:41 CADY AREVALO MD May 12, 2016 13:41
[2016-05-12] MEDS ORDERED: VANCOMYCIN 1 GM (PMX) 250 ML IVPB ONE (14:00)
[2016-05-12] MEDS ORDERED: CEFEPIME 1GM/50 ML (PMX) 50 ML IVPB ONE (14:00)
[2016-05-12] MEDS ORDERED: ZOLPIDEM 5 MG TAB PO PRN (14:30)
[2016-05-12] MEDS ORDERED: ONDANSETRON 4 MG TAB PO PRN (14:30)
[2016-05-12] MEDS ORDERED: MAGNESIUM HYDROXIDE 30ML CUP PO PRN (14:30)
[2016-05-12] MEDS ORDERED: DOCUSATE SODIUM 100 MG CAP PO PRN (14:30)
[2016-05-12] MEDS ORDERED: NACL 0.9% 3 ML SYG IV SCH (14:30)
--- NOTE | 2016-05-12 14:36 | HP ---
Date/Time of Note Date/Time of Note DATE: 05/12/16 TIME: 14:35 Assessment/Plan VTE Prophylaxis VTE Prophylaxis Intervention: ambulation, anti-embolic stocking VTE Contraindication Reason: peripheral vascular disease Lines/Catheters (ICD-10 Req.) IV Catheter Type (from Nrsg): Saline Lock Central line still needed: No Horton in Place (from Nrsg): No Cont'd horton catheter reason: urinary retention Diagnosis/Etiology Chronic Kidney Disease Stage: stage 5 (ESRD) Patient on Dialysis: Yes Assessment/Plan Assessment/Plan 1. Pulmonary edema with respiratory failure; Worsening of respiratory distress.HD pending. 2.. Leukocytosis 18k 3. Chest pain-s/p 2 angiographies and stenting-cardiology consult. 4. End-stage renal disease-on HD 5. Anxiety, depression with dissatisfaction 6. Diabetes type 2-better controlled 7. Osteoarthritis. 8. Anemia of chronic disease-H/H stable. 9. Status post multiple units of packed red blood cell transfusions. 10. Weight loss-more than 50lb in 8 months. 11. Hypertension-out of control during respiratory distress. 12. Memory impairment. 13. Major depression. 14. Back pain. 15. Benign prostatic hypertrophy. 16. S/P left forearm a/v shunt placement for dialysis-functions well , not mature yet. 17. S/P right Jugular vein cannulation for dialysis-no signs of infection. 18. Hypoxemia with hypercapnia on home 02 and BIPAP. 19. Anxiety; borderline personality; 20. Excessive thirst. 21. Constipation Time Spent More than 65 minutes. Second evaluation on the floor. HPI/ROS Admit Date/Time Admit Date/Time Severe sob. Seen in ER. Unable to lay down. 02 via face mask ease breathing.He was literally suffocating after one day of dialysis,done Wednesday. Unable to sleep last 2 nights. CP on and off. Dissatisfied with the SNF staff. Hx of Present Illness Was in er and hospital x 2 last 10 days for the same reason. ROS Subjective hx not possible: pt non-verbal Constitutional: disoriented, fatigue, nausea, poor po, weight change, No chills, No diaphoresis, No febrile, No improved, No no complaints, No other Eyes: No discharge, No no complaints, No other, No pain, No redness, No visual change ENT: congestion, dysphagia, pain, No bleeding, No discharge, No no complaints, No other, No sore throat Respiratory: cough, pain, pleuritic pain, shortness of breath, No no complaints, No other, No sputum, No wheezing Cardiovascular: chest pain, lightheadedness, palpitations, paroxysmal nocturnal dyspnea, No edema, No no complaints, No orthopenea, No other Gastrointestinal: constipation, flatus, nausea, pain, No blood, No decreased appetite, No diarrhea, No no complaints, No other, No passing stool, No vomiting Genitourinary: dysuria, flank pain, other (lola urine.) Musculoskeletal: back pain, bone/joint pain, neck pain, restricted range of motion, No no complaints, No other, No swelling Skin: bruising, pruritis, rash, No erythema, No laceration, No no complaints, No other, No skin lesions Neurologic: dizziness, headache, No confusion, No focal-weakness, No no complaints, No other, No seizure, No syncope Endocrine: dry skin, weight change Lymphatic: No adenopathy, No lymphadema, No no complaints, No other, No tender nodes Psychological: anxiety, confusion, depression, No nl mood/affect, No no complaints, No other, No suicidal Immunologic: pruritis, No immunodeficiency, No no complaints, No other, No rhinitis, No urticaria PMH/Family/Social Past Medical History Medical History: angina, congestive heart failure, coronary artery disease, diabetes, GERD, high cholesterol, hypertension, renal disease, urinary tract infection Past Surgical History Past Surgical Hx: angioplasty, coronary bypass surgery, endoscopy, other Family History Significant Family History: hypertension Social History Alcohol Use: rarely Smoking Status: Former smoker Drug Use: none Exam/Review of Systems Vital Signs Vitals Vital Signs Date Time Temp Pulse Resp B/P Pulse Ox O2 Delivery O2 Flow Rate FiO2 05/12/16 13:00 99.0 84 24 124/59 100 05/12/16 09:26 50 05/12/16 09:24 8 Exam Constitutional: alert, distress, oriented, other (Grsdpin sn sir, tslkes with interruptions to grasp an air while on nonrebreather face mask with 02 sat 97% during evaluation in ER.), well developed Psych: anxiety, confusion, No depression, No nl mood/affect, No no complaints, No other, No suicidal Head: No atraumatic, No hematomas, No lacerations, No normocephalic, No other Eyes: EOMI, nl lids, No PERRL, No fundi, disc, No icteric, No nl conjunctiva, No nl sclera, No other ENMT: tympanic membranes, No intubated, No mucosa pink and moist, No nl external ears & nose, No nl lips & teeth, No nl nasal mucosa & septum, No other Neck: bruits, jvd, nuchal rigidity, No masses, No non-tender, No other, No supple, No thyromegaly Respiratory: congested cough, diminished breath sounds, intercostal retraction , labored breathing, normal air movement, No clear to auscultation, No crackles/rales, No other, No respirations, No tactile fremitus, No wheezing Cardiovascular: bruits, jugular venous distention (JVD), regular rate and rhythm, No S3, No S4, No diastolic murmur, No edema, No gallop, No irregular rhythm, No murmurs/extra sounds, No nl pulses, No other, No rub, No systolic murmur Gastrointestinal: bowel sounds, distended, soft, No ascites, No firm, No hepatomegaly, No mass, No nl liver, spleen, No non- tender, No other, No rebound or guarding, No splenomegaly, No surgical scars, No tender Genitourinary - Male: CVA tenderness, nl penis, nl scrotum Musculoskeletal: joint tenderness, muscle weakness, other (severe muscular weakness.) Neurological: 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 Extensive and difficult talk.), numbness, other (forgetful.), No DTR's symmetric, No confused, No focal weakness, No lethargic, No nl mental status, No nl strength, No reflexes, No unresponsive Skin: rash or lesions, No diaphoresis, No ecchymosis, No laceration, No nl turgor, No other, No puncture Lymph: No enlarged, No nl lymph nodes, No nontender, No other Labs Result Diagram: 05/12/1692405/12/16924 Medications Medications Current Medications Vancomycin HCl (Vancocin) 250 ml @ 125 mls/hr ONCE ONCE IVPB ; Start 05/12/16 at 14:00; Stop 05/12/16 at 15:59 HINA CASTILLO MD May 12, 2016 14:36
[2016-05-12 15:15] LABS: HEMATOCRIT 34.8 % (42.0-52.0); HEMOGLOBIN 11.2 g/dl (14.0-18.0); MEAN CORPUSCULAR HGB CONC 32.2 g/dl (32.0-37.0); MEAN CORPUSCULAR VOLUME 90.3 fl (82.0-101.0); MEAN PLATELET VOLUME 7.4 fl (7.4-10.4); PLATELET COUNT 342 10^3/UL (140-440); RED BLOOD COUNT 3.85 10^6/ul (4.70-6.10); RED CELL DISTRIBUTION WIDTH 17.3 % (11.5-14.5); UNCORRECTED WBC 19.8 10^3/ul (4.8-10.8); WHITE BLOOD COUNT 19.8 10^3/ul (4.8-10.8)
[2016-05-12 15:16] LABS: D-DIMER 1246.31 ng/ml (<460)
[2016-05-12 15:22] LABS: CREATINE KINASE < 20 IU/L (23-200)
[2016-05-12 15:28] LABS: CONDITION 1; LH ANALYZER COMMENTS 1; SUSPECT 1
[2016-05-12 15:31] LABS: TROPONIN-I 0.016 ng/ml (0.00-0.12)
[2016-05-12 15:46] LABS: POTASSIUM 5.1 mmol/L (3.5-5.1)
[2016-05-12 15:48] LABS: ALBUMIN/GLOBULIN RATIO 0.76; CREATININE 7.07 mg/dl (0.61-1.24); TOTAL PROTEIN 6.9 g/dl (6.1-8.1)
[2016-05-12 15:49] LABS: CALCIUM 8.4 mg/dl (8.4-10.2); MAGNESIUM 1.9 mg/dl (1.7-2.5); PHOSPHORUS 5.7 mg/dl (2.5-4.9); URIC ACID 8.8 mg/dl (3.1-7.9)
[2016-05-12 16:09] LABS: LYMPHOCYTES # 0.4 10^3/ul (0.8-2.9); MONOCYTE # 1.8 10^3/ul (0.3-0.9); NEUTROPHIL # 17.6 10^3/ul (1.6-7.5)
[2016-05-12 16:19] LABS: THYROID STIMULATING HORMONE 0.824 MIU/L (0.465-4.680)
[2016-05-12] MEDS: IPRATROPIUM (NEB) 0.5 MG/2.5 ML AMP NEB SCH (19:43)
[2016-05-12] MEDS: ALBUTEROL 0.5% (NEB) 2.5 MG/0.5 ML AMP NEB SCH (19:44)
[2016-05-12] MEDS ORDERED: HEPARIN 1000 UNITS/ML 10 ML INJ CATHETER ONE (21:00)
[2016-05-12] MEDS: HEPARIN 5,000 UNIT/0.5 ML SYG SC SCH (21:01)
[2016-05-12 21:43] LABS: CREATINE KINASE < 20 IU/L (23-200)
--- NOTE | 2016-05-12 21:48 | CONS ---
Date/Time of Note Date/Time of Note DATE: 05/12/16 TIME: 21:48 Consultation Date/Type/Reason Admit Date/Time May 12, 2016 at 09:46 Initial Consult Date 05/11/15 Type of Consultation: HEMEONC Reason for Consultation ANEMIA Referring Provider: HINA CASTILLO MD 24 HR Interval Summary Free Text/Dictation wrong note VK Exam/Review of Systems Vital Signs Vitals Vital Signs Date Time Temp Pulse Resp B/P Pulse Ox O2 Delivery O2 Flow Rate FiO2 05/12/16 21:00 110 97 40 05/12/16 20:11 98.0 27 138/63 05/12/16 16:25 BIPAP 05/12/16 16:22 15.0 Exam GENERAL: Chronically ill male. EYES: Extraocular muscles were full. NOSE, MOUTH, AND THROAT: Normal. NECK: There was no JVD. LUNGS: Few rales and wheezes bilaterally. HEART: Rhythm regular. No third sound. ABDOMEN: Nontender. Liver and spleen were not palpable. No masses or tenderness were noted. EXTREMITIES: No edema. Results Result Diagram: 05/12/16 1450 05/12/16 1450 Results 24 hrs Laboratory Tests Test 05/12/16 09:14 05/12/16 09:25 05/12/16 14:50 05/12/16 17:30 Arterial Blood HCO3 23.9 Arterial Blood Base Excess -1.4 Arterial Blood Oxygen Saturation 97.7 Nikita Test ACCEPTAB Arterial Blood Gas Puncture Site Right Radial Arterial Blood Carboxyhemoglobin 0.3 Arterial Blood Date Drawn 05/12/2016 10:30:26 AM Arterial Blood Methemoglobin 0.3 Arterial Blood pCO2 (Temp correct) 42.4 Arterial Blood pH (Temp corrected) 7.369 Arterial Blood pO2 (Temp corrected) 103.8 H Blood Gas A-a O2 Differential 132.6 H Blood Gas Actual Respiration Rate 36 Blood Gas IPAP/EPAP Ratio 15/5 Blood Gas Modality MASK - BIPAP Blood Gas Notified Time 05/12/2016 10:44:11 AM Blood Gas Notified Whom JLD Blood Gas Respiration Rate 10.0 Blood Gas Specimen Source Blood arterial Blood Gas Temperature 37.0 FiO2 40.0 Oxyhemoglobin Percent 97.1 Total Hemoglobin 11.6 L Activated Partial Thromboplast Time 30.8 Anion Gap 20 H 21 H Basophils # 0.0 Basophils % 0.2 Blood Morphology Comment Blood Urea Nitrogen 70 H 74 H Calcium Level 8.5 8.4 Carbon Dioxide Level 27 26 Chloride Level 95 L 95 L Creatinine 6.87 H 7.07 H Eosinophils # 0.1 Eosinophils % 0.4 Glucose Level 136 101 Hematocrit 34.4 L 34.8 L Hemoglobin 11.1 L 11.2 L INR International Normalized Ratio 1.21 Lymphocytes # 1.0 0.4 L Lymphocytes % 4.8 L 2.0 L Mean Corpuscular Hemoglobin 29.0 29.0 Mean Corpuscular Hemoglobin Concent 32.4 32.2 Mean Corpuscular Volume 89.6 90.3 Mean Platelet Volume 7.5 7.4 Monocytes # 1.5 H 1.8 H Monocytes % 7.8 9.0 Neutrophils # 17.2 H 17.6 H Neutrophils % 86.8 H 89.0 H Nucleated Red Blood Cells # 0.0 Nucleated Red Blood Cells % 0.0 Platelet Count 339 # 342 Potassium Level 4.8 5.1 Prothrombin Time 15.4 H Prothrombin Time Ratio 1.2 Red Blood Count 3.83 L 3.85 L Red Cell Distribution Width 17.0 H 17.3 H Sodium Level 137 137 Troponin I 0.037 0.016 White Blood Count 19.8 #H 19.8 H Alanine Aminotransferase (ALT/SGPT) 27 Albumin 3.0 L Albumin/Globulin Ratio 0.76 Alkaline Phosphatase 104 Aspartate Amino Transf (AST/SGOT) 22 B-Type Natriuretic Peptide 63506 H Creatine Kinase < 20 L Creatine Kinase Index Creatinine Kinase MB (Mass) 1.30 D-Dimer 1246.31 H D-Dimer Comment Differential Comment MANUAL DIFF Direct Bilirubin 0.00 Erythrocyte Sedimentation Rate 65 H Globulin 3.90 H Indirect Bilirubin 0.0 Lactic Acid Level 0.9 0.7 Magnesium Level 1.9 Phosphorus Level 5.7 H Thyroid Stimulating Hormone (TSH) 0.824 Total Bilirubin 0.0 L Total Protein 6.9 Uric Acid 8.8 H Test 05/12/16 19:23 05/12/16 21:10 Lactic Acid Level 0.6 Creatine Kinase < 20 L Creatine Kinase Index Pending Creatinine Kinase MB (Mass) Pending Troponin I Pending Medications Medications Current Medications Ondansetron HCl (Zofran Tab) 4 mg Q6H PRN PO NAUSEA AND/OR VOMITING; Start at 14:30 Docusate Sodium (Colace) 100 mg Q12H PRN PO CONSTIPATION; Start 05/12/16 at 14: 30 Magnesium Hydroxide (Milk Of Mag) 30 ml DAILY PRN PO CONSTIPATION; Start at 14:30 Zolpidem Tartrate (Ambien) 5 mg QHS PRN PO SLEEP; Start 05/12/16 at 14:30 Pantoprazole (Protonix Tab) 40 mg DAILY@06 PO ; Start 05/13/16 at 06:00 Heparin Sodium (Porcine) 5000 unit 5,000 unit Q12 SC Last administered on t 21:01; Admin Dose 5,000 UNIT; Start 05/12/16 at 21:00 Albumin Human (Albumin Human 25%) 100 ml @ 100 mls/hr Q1H IV ; Start 05/12/16 at 21:00; Stop 05/12/16 at 22:59 ANDRE SMITH MD May 12, 2016 21:48
--- NOTE | 2016-05-12 21:49 | CONS ---
Date/Time of Note Date/Time of Note DATE: 05/12/16 TIME: 21:48 Assessment/Plan Assessment/Plan Chief Complaint/Hosp Course Anemia - CHRONIC, MULTIFACTORIAL WITH COMPONENT ACD AND IRON DEFICIENCY CONT TO MONITOR BLOOD COUNT CLOSELY OBSERVE FOR BLEEDING AND HEMOLYSIS TRANSFUSE NEEDED EPO WITH HD Acute respiratory failure Pneumonia End-stage renal disease, hemodialysis dependent. Right chest Perm-A-Cath. Chronic obstructive pulmonary disease exacerbation. Problems: Consultation Date/Type/Reason Admit Date/Time May 12, 2016 at 09:46 Date of Consultation: May 12, 2016 Type of Consultation: HEMEONC Reason for Consultation ANEMIA Referring Provider: HINA CASTILLO MD Hx of Present Illness Patient is a 81-year-old male with CHF and dialysis who presents with shortness of breath. Please note the history and physical exam is limited secondary to the patient's shortness of breath at this time. The patient was brought in by ambulance. He came from [facility]. He needed CPAP by paramedics and he was also given 2 sprays of nitroglycerin. He had dialysis on Wednesday and is due for dialysis today. He had shortness of breath which started today. He makes a small amount of urine. His primary doctor is Dr. Castillo. I WAS ASKED TO PROVIDE HEMEONC CONSULT RE ANEMIA ROS All systems reviewed and are negative except as per history of present illness. Medications Home Meds Active Scripts Tiotropium [place]* (Spiriva*) 18 Mcg Cap.w.dev, 1 INH INH BID for 30 Days, #60 CAP Prov:HINA CASTILLO MD 04/28/16 Salmeterol Xinaf-Fluticasone* (Advair*) 500/50 Diskus Inhaler, 1 INH INH BID for 30 Days, #1 CAP.EC Prov:HINA CASTILLO MD 04/28/16 Pantoprazole* (Pantoprazole*) 40 Mg Tablet.dr, 40 MG PO DAILY@06 for 30 Days, # 30 BOX Prov:HINA CASTILLO MD 04/28/16 Nifedipine (Procardia Xl) 30 Mg Tab.er.24, 30 MG PO BID for 30 Days, #30 TAB Prov:HINA CASTILLO MD 04/28/16 Minoxidil* (Lonitin*) 2.5 Mg Tab, 5 MG PO BID for 30 Days, #60 TAB Prov:HINA CASTILLO MD 04/28/16 [Ipratropium 0.02% (Neb)] 0.5 MG/2.5 ML NEBU No Conflict Check, 0.5 MG HHN Q6H RESP THERAPY for 30 Days, #90 CAP Prov:HINA CASTILLO MD 04/28/16 Epoetin Jordon (Epogen) 10,000 Units/Ml Soln, 33262 UNITS SC MoWeFr@17 for 14 Days , #30 DAYSX 3 28 Prov:HINA CASTILLO MD 04/28/16 Clonidine Hcl* (Clonidine Hcl*) 0.1 Mg Tab, 0.1 MG PO TID for 30 Days, #90 TAB Prov:HINA CASTILLO MD 04/28/16 Carvedilol* (Carvedilol*) 12.5 Mg Tablet, 12.5 MG PO BID for 30 Days, #60 TAB Prov:HINA CASTILLO MD 04/28/16 Albuterol Sulfate* (Albuterol Sulfate* Neb) 0.083%-3 Ml Neb, 2.5 MG HHN Q6HWA RESP THERAPY for 30 Days, #90 BLIST PACK Prov:HINA CASTILLO MD 04/28/16 Acetaminophen* (Tylenol*) 325 Mg Tablet, 650 MG PO Q6H Y for PAIN AND OR ELEVATED TEMP for 30 Days, #90 TAB Prov:HINA CASTILLO MD 04/28/16 Reported Medications Sennosides* (Senna Lax*) 8.6 Mg Tablet, 1 TAB PO DAILY Y for CONSTIPATION, TAB 01/13/16 Levalbuterol* (Xopenex* HFA) 15 Gm Inha, 2 PUFFS INH Q4H Y for WHEEZING AND SOB , INHALER 01/13/16 Valsartan* (Diovan*) 320 Mg Tablet, 320 MG PO DAILY, TAB HOLD FOR SBP<110 HR<60(HTN) 01/13/16 Clopidogrel Bisulfate* (Clopidogrel Bisulfate*) 75 Mg Tablet, 75 MG PO DAILY, # 30 TAB 11/28/15 Tamsulosin Hcl* (Tamsulosin Hcl*) 0.4 Mg Cap.er.24h, 0.4 MG PO HS, CAP 11/28/15 Levothyroxine Sodium* (Levothyroxine Sodium*) 125 Mcg Tablet, 125 MCG PO BEFORE BREAKFAST, #30 TAB 11/28/15 Discontinued Reported Medications Esomeprazole Mag Trihydrate (Nexium) 40 Mg Capsule.dr, 40 MG PO DAILY, #30 CAP 11/28/15 Minoxidil* (Lonitin*) 10 Mg Tab, 10 MG PO DAILY, TAB HOLD FOR SBP<110 HR<60(HTN) 01/13/16 Clonidine Hcl* (Clonidine Hcl*) 0.1 Mg Tab, 0.1 MG PO BID, TAB FOR SBP<110: HR<60(HTN) 01/13/16 Salmeterol Xinaf/Fluticasone* (Advair*) 250-50 Diskus Inhaler, 1 INH INHALATION BID, #1 INHALER 11/28/15 Discontinued Scripts Valsartan* (Diovan*) 160 Mg Tablet, 320 MG PO DAILY for 30 Days, #60 TAB Hold if Sysgtolic less than 120mm hg. Prov:HINA CASTILLO MD 04/28/16 Tamsulosin Hcl* (Flomax*) 0.4 Mg Cap.er.24h, 0.4 MG PO HS for 30 Days, #30 CAP Prov:HINA CASTILLO MD 04/28/16 Levothyroxine Sodium* (Synthroid*) 125 Mcg Tablet, 125 MCG PO BEFORE BREAKFAST for 30 Days, #30 TAB Prov:HINA CASTILLO MD 04/28/16 Allergies Allergies: Coded Allergies: No Known Allergy (Unverified , 05/12/16) PMhx/Soc History of Surgery: Yes (angiogram, permacath placement, AVF placement) Anesthesia Reaction: No Hx Neurological Disorder: No Hx Respiratory Disorders: Yes (CHF) Hx Cardiac Disorders: Yes (HTN, CHF, ESRD, Anemia, BPH) Hx Psychiatric Problems: No Hx Miscellaneous Medical Probl: No Hx Alcohol Use: No Hx Substance Use: No Hx Tobacco Use: No Smoking Status: Never smoker FmHx Family History: No diabetes Past Surgical History Past Surgical Hx: angioplasty, coronary bypass surgery, endoscopy, other Social History Smoking Status: Never smoker Exam/Review of Systems Vital Signs Vitals Vital Signs Date Time Temp Pulse Resp B/P Pulse Ox O2 Delivery O2 Flow Rate FiO2 05/12/16 21:00 110 97 40 1/31/17 20:11 98.0 27 138/63 05/12/16 16:25 BIPAP 05/12/16 16:22 15.0 Exam GENERAL: Chronically ill male. EYES: Extraocular muscles were full. NOSE, MOUTH, AND THROAT: Normal. NECK: There was no JVD. LUNGS: Few rales and wheezes bilaterally. HEART: Rhythm regular. No third sound. ABDOMEN: Nontender. Liver and spleen were not palpable. No masses or tenderness were noted. EXTREMITIES: No edema. Results Result Diagram: 05/12/16 1450 05/12/16 1450 Results 24 hrs Laboratory Tests Test 05/12/16 09:14 05/12/16 09:25 05/12/16 14:50 05/12/16 17:30 Arterial Blood HCO3 23.9 Arterial Blood Base Excess -1.4 Arterial Blood Oxygen Saturation 97.7 Nikita Test ACCEPTAB Arterial Blood Gas Puncture Site Right Radial Arterial Blood Carboxyhemoglobin 0.3 Arterial Blood Date Drawn 05/12/2016 10:30:26 AM Arterial Blood Methemoglobin 0.3 Arterial Blood pCO2 (Temp correct) 42.4 Arterial Blood pH (Temp corrected) 7.369 Arterial Blood pO2 (Temp corrected) 103.8 H Blood Gas A-a O2 Differential 132.6 H Blood Gas Actual Respiration Rate 36 Blood Gas IPAP/EPAP Ratio 15/5 Blood Gas Modality MASK - BIPAP Blood Gas Notified Time 05/12/2016 10:44:11 AM Blood Gas Notified Whom JLD Blood Gas Respiration Rate 10.0 Blood Gas Specimen Source Blood arterial Blood Gas Temperature 37.0 FiO2 40.0 Oxyhemoglobin Percent 97.1 Total Hemoglobin 11.6 L Activated Partial Thromboplast Time 30.8 Anion Gap 20 H 21 H Basophils # 0.0 Basophils % 0.2 Blood Morphology Comment Blood Urea Nitrogen 70 H 74 H Calcium Level 8.5 8.4 Carbon Dioxide Level 27 26 Chloride Level 95 L 95 L Creatinine 6.87 H 7.07 H Eosinophils # 0.1 Eosinophils % 0.4 Glucose Level 136 101 Hematocrit 34.4 L 34.8 L Hemoglobin 11.1 L 11.2 L INR International Normalized Ratio 1.21 Lymphocytes # 1.0 0.4 L Lymphocytes % 4.8 L 2.0 L Mean Corpuscular Hemoglobin 29.0 29.0 Mean Corpuscular Hemoglobin Concent 32.4 32.2 Mean Corpuscular Volume 89.6 90.3 Mean Platelet Volume 7.5 7.4 Monocytes # 1.5 H 1.8 H Monocytes % 7.8 9.0 Neutrophils # 17.2 H 17.6 H Neutrophils % 86.8 H 89.0 H Nucleated Red Blood Cells # 0.0 Nucleated Red Blood Cells % 0.0 Platelet Count 339 # 342 Potassium Level 4.8 5.1 Prothrombin Time 15.4 H Prothrombin Time Ratio 1.2 Red Blood Count 3.83 L 3.85 L Red Cell Distribution Width 17.0 H 17.3 H Sodium Level 137 137 Troponin I 0.037 0.016 White Blood Count 19.8 #H 19.8 H Alanine Aminotransferase (ALT/SGPT) 27 Albumin 3.0 L Albumin/Globulin Ratio 0.76 Alkaline Phosphatase 104 Aspartate Amino Transf (AST/SGOT) 22 B-Type Natriuretic Peptide 39437 H Creatine Kinase < 20 L Creatine Kinase Index Creatinine Kinase MB (Mass) 1.30 D-Dimer 1246.31 H D-Dimer Comment Differential Comment MANUAL DIFF Direct Bilirubin 0.00 Erythrocyte Sedimentation Rate 65 H Globulin 3.90 H Indirect Bilirubin 0.0 Lactic Acid Level 0.9 0.7 Magnesium Level 1.9 Phosphorus Level 5.7 H Thyroid Stimulating Hormone (TSH) 0.824 Total Bilirubin 0.0 L Total Protein 6.9 Uric Acid 8.8 H Test 05/12/16 19:23 05/12/16 21:10 Lactic Acid Level 0.6 Creatine Kinase < 20 L Creatine Kinase Index Pending Creatinine Kinase MB (Mass) Pending Troponin I Pending Medications Medications Current Medications Ondansetron HCl (Zofran Tab) 4 mg Q6H PRN PO NAUSEA AND/OR VOMITING; Start at 14:30 Docusate Sodium (Colace) 100 mg Q12H PRN PO CONSTIPATION; Start 05/12/16 at 14: 30 Magnesium Hydroxide (Milk Of Mag) 30 ml DAILY PRN PO CONSTIPATION; Start at 14:30 Zolpidem Tartrate (Ambien) 5 mg QHS PRN PO SLEEP; Start 05/12/16 at 14:30 Pantoprazole (Protonix Tab) 40 mg DAILY@06 PO ; Start 05/13/16 at 06:00 Heparin Sodium (Porcine) 5000 unit 5,000 unit Q12 SC Last administered on t 21:01; Admin Dose 5,000 UNIT; Start 05/12/16 at 21:00 Albumin Human (Albumin Human 25%) 100 ml @ 100 mls/hr Q1H IV ; Start 05/12/16 at 21:00; Stop 05/12/16 at 22:59 ANDRE SMITH MD May 12, 2016 21:49
[2016-05-12 21:50] LABS: TROPONIN-I 0.026 ng/ml (0.00-0.12)
[2016-05-12 21:53] LABS: CK-MB 1.33 ng/ml (0.0-2.4)
[2016-05-12] MEDS: ALBUMIN HUMAN 25% 100 ML IV SCH ×2 (21:55→22:54)
[2016-05-12] MEDS ORDERED: DEXTROSE 50% 50 ML SYRINGE IV PRN ×2 (23:45)
[2016-05-12] MEDS ORDERED: GLUCOSE GEL 15 GRAM TUBE PO PRN ×2 (23:45)
[2016-05-12] MEDS ORDERED: GLUCOSE GEL 15 GRAM TUBE BUCCAL PRN (23:45)
[2016-05-12] MEDS ORDERED: GLUCAGON 1 MG INJ IM PRN (23:45)
[2016-05-13] VITALS (23 sets, daily range): BP systolic 93–134; BP diastolic 50–72; PULSE 90–117; RESP 15–27
[2016-05-13] MEDS ORDERED: LEVALBUTEROL (HFA) 15 GM INHALER INH PRN
[2016-05-13] MEDS ORDERED: SENNA TAB PO PRN
[2016-05-13] MEDS ORDERED: ACETAMINOPHEN 325 MG TAB PO PRN
[2016-05-13] MEDS: IPRATROPIUM (NEB) 0.5 MG/2.5 ML AMP NEB SCH ×4 (01:00→21:20)
[2016-05-13] MEDS: ALBUTEROL 0.5% (NEB) 2.5 MG/0.5 ML AMP NEB SCH ×4 (01:00→21:20)
[2016-05-13] MEDS ORDERED: NON-FORMULARY/PATIENT OWN MED ([Ipratropium 0.02% (Neb)] (Atrovent 0.02% (Neb)) 0.5 MG) HHN SCH (02:00)
[2016-05-13] MEDS: ACCUCHECK XX SCH ×2 (02:02→23:10)
[2016-05-13] MEDS ORDERED: PANTOPRAZOLE (EC) 40 MG TAB PO SCH (06:00)
[2016-05-13] MEDS: PANTOPRAZOLE (EC) 40 MG TAB PO SCH (06:19)
[2016-05-13] MEDS: LEVOTHYROXINE 125 MCG TAB PO SCH (06:23)
[2016-05-13 07:02] LABS: BASOPHILS % 0.1 % (0.0-2.0); EOSINOPHILS # 0.1 10^3/ul (0.0-0.5); EOSINOPHILS % 0.3 % (0.0-7.0); LYMPHOCYTES # 1.2 10^3/ul (0.8-2.9); LYMPHOCYTES % 6.8 % (15.0-51.0); MEAN CORPUSCULAR HEMOGLOBIN 29.1 pg (29.0-33.0); MEAN CORPUSCULAR HGB CONC 32.3 g/dl (32.0-37.0); MEAN CORPUSCULAR VOLUME 90.1 fl (82.0-101.0); MEAN PLATELET VOLUME 7.1 fl (7.4-10.4); MONOCYTE # 1.5 10^3/ul (0.3-0.9); MONOCYTES % 8.3 % (0.0-11.0); NEUTROPHIL # 15.4 10^3/ul (1.6-7.5); NEUTROPHILS % 84.5 % (39.0-77.0); PLATELET COUNT 338 10^3/UL (140-440); RED BLOOD COUNT 3.77 10^6/ul (4.70-6.10); RED CELL DISTRIBUTION WIDTH 17.2 % (11.5-14.5); UNCORRECTED WBC 18.3 10^3/ul (4.8-10.8); WHITE BLOOD COUNT 18.3 10^3/ul (4.8-10.8)
[2016-05-13 07:06] LABS: CONDITION 1; LH ANALYZER COMMENTS 1
[2016-05-13 07:17] LABS: ALBUMIN 3.8 g/dl (3.3-4.9)
[2016-05-13 07:18] LABS: POTASSIUM 4.2 mmol/L (3.5-5.1)
[2016-05-13 07:20] LABS: ALBUMIN/GLOBULIN RATIO 0.95; BILIRUBIN,INDIRECT 0.2 mg/dl (0-1.1); BILIRUBIN,TOTAL 0.2 mg/dl (0.2-1.3); CREATININE 5.42 mg/dl (0.61-1.24); TOTAL PROTEIN 7.8 g/dl (6.1-8.1)
[2016-05-13 07:21] LABS: CHOL/HDL RATIO 7.5 RATIO; MAGNESIUM 1.9 mg/dl (1.7-2.5); PHOSPHORUS 5.4 mg/dl (2.5-4.9)
--- NOTE | 2016-05-13 07:24 | PN ---
Date/Time of Note Date/Time of Note DATE: 05/13/16 TIME: 07:13 Assessment/Plan VTE Prophylaxis VTE Prophylaxis Intervention: ambulation, anti-embolic stocking VTE Contraindication Reason: peripheral vascular disease Lines/Catheters IV Catheter Type (from Nrsg): [place] line still needed: No Urinary Cath still in place: No Assessment/Plan Assessment/Plan 1. Pulmonarty edema with respiratory failure; Worsening of respiratory distress. 2.. Leukocytosis 18k 3. Chest pain-s/p 2 angiographies and stenting-cardiology consult. 4. End-stage renal disease-on HD 5. Anxiety, depression with dissatisfaction 6. Diabetes type 2-better controlled 7. Osteoarthritis. 8. Anemia of chronic disease-H/H stable. 9. Status post multiple units of packed red blood cell transfusions. 10. Weight loss-more than 50lb in 8 months. 11. Hypertension-out of control during respiratory distress. 12. Memory impairment. 13. Major depression. 14. Back pain. 15. Benign prostatic hypertrophy. 16. S/P left forearm a/v shunt placement for dialysis-functions well , not mature yet. 17. S/P right Jugular vein cannulation for dialysis-no signs of infection. 18. Hypoxemia with hypercapnia on home 02 and BIPAP. 19. Anxiety; borderline personality; 20. Excessive thirst. 21. Constipation Subjective 24 Hr Interval Summary Free Text/Dictation I fell better after HD. Not as good as previous time. Subjective hx not possible: other (very anxiouse, tense.) Constitutional: chills, disoriented, poor po, requiring O2, No diaphoresis, No febrile, No improved, No no complaints, No other, No requiring IVF Eyes: No discharge, No no complaints, No other, No pain, No redness, No visual change ENT: No bleeding, No congestion, No discharge, No dysphagia, No no complaints, No other, No pain, No sore throat Respiratory: cough, shortness of breath, No no complaints, No other, No pain, No pleuritic pain, No sputum, No wheezing Cardiovascular: chest pain, lightheadedness, orthopenea, palpitations, paroxysmal nocturnal dyspnea, No edema, No no complaints, No other Gastrointestinal: constipation, decreased appetite, flatus, passing stool, No blood, No diarrhea, No nausea, No no complaints, No other, No pain, No vomiting Genitourinary: flank pain, No bleeding, No discharge, No dysuria, No hematuria, No no complaints, No other Musculoskeletal: back pain, bone/joint pain, neck pain, other (left cubital aarea a/v sergei dril palpable wery well.), No no complaints, No restricted range of motion, No swelling Skin: No bruising, No erythema, No laceration, No no complaints, No other, No pruritis, No rash, No skin lesions Neurologic: confusion, dizziness Endocrine: dry skin, No no complaints, No other, No polydypsia, No polyuria, No temp intolerance Psychological: anxiety, confusion, depression, No nl mood/affect, No no complaints, No other, No suicidal Immunologic: pruritis Exam/Review of Systems Vital Signs Vitals Vital Signs Date Time Temp Pulse Resp B/P Pulse Ox O2 Delivery O2 Flow Rate FiO2 05/13/16 05:02 106 98 40 05/13/16 03:50 98.4 27 131/62 05/12/16 16:25 BIPAP 05/12/16 16:22 15.0 Intake and Output 05/12/16 05/12/16 05/13/16 15:00 23:00 07:00 Intake Total 940 ml Output Total 4000 ml Balance -3060 ml Exam Constitutional: alert, frail, oriented, well developed, No distress, No non-verbal, No obese, No other Psych: anxiety, confusion (on and off.), depression, No nl mood/affect, No no complaints, No other, No suicidal Head: atraumatic, normocephalic, No hematomas, No lacerations, No other Eyes: EOMI, PERRL, nl lids, No fundi, disc, No icteric, No nl conjunctiva, No nl sclera, No other ENMT: nl external ears & nose, tympanic membranes, No intubated, No mucosa pink and moist, No nl lips & teeth, No nl nasal mucosa & septum, No other Neck: bruits, jvd, nuchal rigidity, No masses, No non-tender, No other, No supple, No thyromegaly Respiratory: congested cough, diminished breath sounds, labored breathing, normal air movement, No clear to auscultation, No crackles/rales, No intercostal retraction, No other, No respirations, No tactile fremitus, No wheezing Cardiovascular: bruits, jugular venous distention (JVD), regular rate and rhythm, systolic murmur, No S3, No S4, No diastolic murmur, No edema, No gallop, No irregular rhythm, No murmurs/extra sounds, No nl pulses, No other, No rub Gastrointestinal: distended, nl liver, spleen, soft, No ascites, No bowel sounds, No firm, No hepatomegaly, No mass, No non-tender , No other, No rebound or guarding, No splenomegaly, No surgical scars, No tender Genitourinary - Male: CVA tenderness, nl penis, nl scrotum Musculoskeletal: joint tenderness, muscle weakness, other (unstable gater. Unable to get up, but able to turn in a bed with more ease than yesterday.), No muscle tone, No nl extremities to inspection, No nl gait and stance, No range of motion, No spine non-tender, No swelling Extremities: normal pulses, No calf tenderness, No clubbing, No cyanosis, No edema, No other, No palpable cord, No pitting pedal edema, No tenderness Neurological: HERD TESTER II-XII intact (decreased hearing.), nl speech, numbness, No DTR's symmetric, No confused, No focal weakness, No lethargic, No nl mental status, No nl strength, No other, No reflexes, No unresponsive Skin: No diaphoresis, No ecchymosis, No laceration, No nl turgor, No other, No puncture, No rash or lesions Lymph: No enlarged, No nl lymph nodes, No nontender, No other Results Result Diagram: 05/13/16 0605 05/12/16 1450 Results 24 hrs Laboratory Tests Test 05/12/16 09:14 05/12/16 09:25 05/12/16 14:50 05/12/16 17:30 Arterial Blood HCO3 23.9 Arterial Blood Base Excess -1.4 Arterial Blood Oxygen Saturation 97.7 Nikita Test ACCEPTAB Arterial Blood Gas Puncture Site Right Radial Arterial Blood Carboxyhemoglobin 0.3 Arterial Blood Date Drawn 05/12/2016 10:30:26 AM Arterial Blood Methemoglobin 0.3 Arterial Blood pCO2 (Temp correct) 42.4 Arterial Blood pH (Temp corrected) 7.369 Arterial Blood pO2 (Temp corrected) 103.8 H Blood Gas A-a O2 Differential 132.6 H Blood Gas Actual Respiration Rate 36 Blood Gas IPAP/EPAP Ratio 15/5 Blood Gas Modality MASK - BIPAP Blood Gas Notified Time 05/12/2016 10:44:11 AM Blood Gas Notified Whom JLD Blood Gas Respiration Rate 10.0 Blood Gas Specimen Source Blood arterial Blood Gas Temperature 37.0 FiO2 40.0 Oxyhemoglobin Percent 97.1 Total Hemoglobin 11.6 L Activated Partial Thromboplast Time 30.8 Anion Gap 20 H 21 H Basophils # 0.0 Basophils % 0.2 Blood Morphology Comment Blood Urea Nitrogen 70 H 74 H Calcium Level 8.5 8.4 Carbon Dioxide Level 27 26 Chloride Level 95 L 95 L Creatinine 6.87 H 7.07 H Eosinophils # 0.1 Eosinophils % 0.4 Glucose Level 136 101 Hematocrit 34.4 L 34.8 L Hemoglobin 11.1 L 11.2 L INR International Normalized Ratio 1.21 Lymphocytes # 1.0 0.4 L Lymphocytes % 4.8 L 2.0 L Mean Corpuscular Hemoglobin 29.0 29.0 Mean Corpuscular Hemoglobin Concent 32.4 32.2 Mean Corpuscular Volume 89.6 90.3 Mean Platelet Volume 7.5 7.4 Monocytes # 1.5 H 1.8 H Monocytes % 7.8 9.0 Neutrophils # 17.2 H 17.6 H Neutrophils % 86.8 H 89.0 H Nucleated Red Blood Cells # 0.0 Nucleated Red Blood Cells % 0.0 Platelet Count 339 # 342 Potassium Level 4.8 5.1 Prothrombin Time 15.4 H Prothrombin Time Ratio 1.2 Red Blood Count 3.83 L 3.85 L Red Cell Distribution Width 17.0 H 17.3 H Sodium Level 137 137 Troponin I 0.037 0.016 White Blood Count 19.8 #H 19.8 H Alanine Aminotransferase (ALT/SGPT) 27 Albumin 3.0 L Albumin/Globulin Ratio 0.76 Alkaline Phosphatase 104 Aspartate Amino Transf (AST/SGOT) 22 B-Type Natriuretic Peptide 36601 H Creatine Kinase < 20 L Creatine Kinase Index Creatinine Kinase MB (Mass) 1.30 D-Dimer 1246.31 H D-Dimer Comment Differential Comment MANUAL DIFF Direct Bilirubin 0.00 Erythrocyte Sedimentation Rate 65 H Globulin 3.90 H Indirect Bilirubin 0.0 Lactic Acid Level 0.9 0.7 Magnesium Level 1.9 Phosphorus Level 5.7 H Thyroid Stimulating Hormone (TSH) 0.824 Total Bilirubin 0.0 L Total Protein 6.9 Uric Acid 8.8 H Test 05/12/16 19:23 05/12/16 21:10 05/12/16 23:53 05/13/16 01:47 Lactic Acid Level 0.6 Creatine Kinase < 20 L Creatine Kinase Index Creatinine Kinase MB (Mass) 1.33 Troponin I 0.026 0.036 Bedside Glucose 96 Test 05/13/16 06:05 Basophils # 0.0 Basophils % 0.1 Blood Morphology Comment Eosinophils # 0.1 Eosinophils % 0.3 Hematocrit 34.0 L Hemoglobin 11.0 L Lymphocytes # 1.2 Lymphocytes % 6.8 L Mean Corpuscular Hemoglobin 29.1 Mean Corpuscular Hemoglobin Concent 32.3 Mean Corpuscular Volume 90.1 Mean Platelet Volume 7.1 L Monocytes # 1.5 H Monocytes % 8.3 Neutrophils # 15.4 H Neutrophils % 84.5 H Nucleated Red Blood Cells # 0.0 Nucleated Red Blood Cells % 0.0 Platelet Count 338 Red Blood Count 3.77 L Red Cell Distribution Width 17.2 H White Blood Count 18.3 H Medications Medications Current Medications Ondansetron HCl (Zofran Tab) 4 mg Q6H PRN PO NAUSEA AND/OR VOMITING; Start at 14:30 Docusate Sodium (Colace) 100 mg Q12H PRN PO CONSTIPATION; Start 05/12/16 at 14: 30 Magnesium Hydroxide (Milk Of Mag) 30 ml DAILY PRN PO CONSTIPATION; Start at 14:30 Zolpidem Tartrate (Ambien) 5 mg QHS PRN PO SLEEP; Start 05/12/16 at 14:30 Heparin Sodium (Porcine) (Heparin (5000 Units/0.5 ml)) 5,000 unit Q12 SC Last administered on 05/12/16t 21:01; Admin Dose 5,000 UNIT; Start 05/12/16 at 21:00 Acetaminophen (Tylenol Tab) 650 mg Q6H PRN PO PAIN AND OR ELEVATED TEMP; Start 05/13/16 at 00:00 Carvedilol (Coreg) 12.5 mg BID PO ; Start 05/13/16 at 09:00 Clonidine (Catapres) 0.1 mg TID PO ; Start 05/13/16 at 09:00 Clopidogrel Bisulfate (plaVIX) 75 mg DAILY PO ; Start 05/13/16 at 09:00 Epoetin Jordon (Epogen (Esrd)) 10,000 units MoWeFr@17 SC ; Start 05/13/16 at 17:00 Levalbuterol (Xopenex Hfa) 2 puff Q4H PRN INH WHEEZING AND SOB; Start 05/13/16 at 00:00 Minoxidil (Loniten) 5 mg BID PO ; Start 05/13/16 at 09:00 Nifedipine (Procardia Xl) 30 mg BID PO ; Start 05/13/16 at 09:00 Pantoprazole (Protonix Tab) 40 mg DAILY@06 PO Last administered on 05/13/16 06: 19; Admin Dose 40 MG; Start 05/13/16 at 06:00 Salmeterol Xinafoate/ Fluticasone (Advair 500/50 Diskus) 1 inh BID INH ; Start 05/13/16 at 09:00 Senna (Senokot) 1 tab DAILY PRN PO CONSTIPATION; Start 05/13/16 at 00:00 Tamsulosin HCl (Flomax) 0.4 mg HS PO ; Start 05/13/16 at 21:00 Tiotropium [place] (Spiriva) 1 inh BID INH ; Start 05/13/16 at 09:00 Valsartan (Diovan) 320 mg DAILY PO ; Start 05/13/16 at 09:00 Diagnostic Test (Pha) (Accucheck) 1 ea 02 XX Last administered on 05/13/16 02: 02; Admin Dose 1 EA; Start 05/13/16 at 02:00 Miscellaneous Information 1 ea NOTE XX ; Start 05/12/16 at 23:45 Glucose (Glutose) 15 gm Q15M PRN PO DECREASED GLUCOSE; Start 05/12/16 at 23:45 Glucose (Glutose) 22.5 gm Q15M PRN PO DECREASED GLUCOSE; Start 05/12/16 at 23: 45 Dextrose (D50w Syringe) 25 ml Q15M PRN IV DECREASED GLUCOSE; Start 05/12/16 at 23:45 Dextrose (D50w Syringe) 50 ml Q15M PRN IV DECREASED GLUCOSE; Start 05/12/16 at 23:45 Glucagon (Glucagen) 1 mg Q15M PRN IM DECREASED GLUCOSE; Start 05/12/16 at 23:45 Glucose (Glutose) 15 gm Q15M PRN BUCCAL DECREASED GLUCOSE; Start 05/12/16 at 23 :45 HINA CASTILLO MD May 13, 2016 07:23
[2016-05-13 07:48] LABS: THYROID STIMULATING HORMONE 0.909 MIU/L (0.465-4.680)
[2016-05-13] MEDS: INSULIN ASPART [NOVOLOG] 3 ML PEN SC SCH ×4 (07:55→21:00)
[2016-05-13] MEDS ORDERED: ALBUTEROL 0.5% (NEB) 2.5 MG/0.5 ML AMP HHN SCH (08:00)
[2016-05-13] MEDS ORDERED: ENOXAPARIN 30 MG/0.3 ML SYG SC SCH (09:00)
--- NOTE | 2016-05-13 09:43 | CONS ---
Date/Time of Note Date/Time of Note DATE: 05/13/16 TIME: 09:43 Assessment/Plan Assessment/Plan Chief Complaint/Hosp Course Anemia - CHRONIC, MULTIFACTORIAL WITH COMPONENT ACD AND IRON DEFICIENCY CONT TO MONITOR BLOOD COUNT CLOSELY OBSERVE FOR BLEEDING AND HEMOLYSIS TRANSFUSE NEEDED EPO WITH HD Acute respiratory failure.- PER PULM AND NEPHRO Pneumonia End-stage renal disease, hemodialysis dependent. Right chest Perm-A-Cath. Chronic obstructive pulmonary disease exacerbation. Problems: Consultation Date/Type/Reason Admit Date/Time May 12, 2016 at 09:46 Initial Consult Date 05.12.16 Type of Consultation: HEMEONC Reason for Consultation ANEMIA LEUKOCYTOSIS Referring Provider: HINA CASTILLO MD 24 HR Interval Summary Free Text/Dictation Breathing mildly improved. "Still I am unable to get enough oxygen". " I think in hospital HD is more easy to tolerate than outpatient. " Exam/Review of Systems Vital Signs Vitals Vital Signs Date Time Temp Pulse Resp B/P Pulse Ox O2 Delivery O2 Flow Rate FiO2 05/13/16 08:58 105 99 40 05/13/16 08:31 34 05/13/16 07:50 98.8 128/60 05/12/16 16:25 BIPAP 05/12/16 16:22 15.0 Intake and Output 05/12/16 05/12/16 05/13/16 15:00 23:00 07:00 Intake Total 940 ml Output Total 4000 ml Balance -3060 ml Exam Constitutional: alert, oriented, well developed, No distress, No frail, No non-verbal, No obese, No other Psych: anxiety, confusion, depression, No nl mood/affect, No no complaints, No other, No suicidal Head: atraumatic, normocephalic, No hematomas, No lacerations, No other Eyes: EOMI, PERRL, nl lids, No fundi, disc, No icteric, No nl conjunctiva, No nl sclera, No other ENMT: nl external ears & nose, nl nasal mucosa & septum, No intubated, No mucosa pink and moist, No nl lips & teeth, No other, No tympanic membranes Neck: bruits, jvd, nuchal rigidity, No masses, No non-tender, No other, No supple, No thyromegaly Respiratory: congested cough, diminished breath sounds, respirations Cardiovascular: bruits, regular rate and rhythm, systolic murmur, No S3, No S4, No diastolic murmur, No edema, No gallop, No irregular rhythm, No jugular venous distention (JVD), No murmurs/extra sounds, No nl pulses, No other, No rub Gastrointestinal: distended, non-tender, soft, No ascites, No bowel sounds, No firm, No hepatomegaly, No mass, No nl liver, spleen, No other, No rebound or guarding, No splenomegaly, No surgical scars, No tender Genitourinary - Male: nl penis, nl scrotum, No CVA tenderness, No discharge, No other Musculoskeletal: joint tenderness, muscle tone, muscle weakness, No nl extremities to inspection, No nl gait and stance, No other, No range of motion, No spine non-tender, No swelling Extremities: normal pulses, No calf tenderness, No clubbing, No cyanosis, No edema, No other, No palpable cord, No pitting pedal edema, No tenderness Neurological: PICCOLOIST II-XII intact, No DTR's symmetric, No confused, No focal weakness, No lethargic, No nl mental status, No nl speech, No nl strength, No numbness, No other, No reflexes , No unresponsive Skin: diaphoresis, No ecchymosis, No laceration, No nl turgor, No other, No puncture, No rash or lesions Results Result Diagram: 05/13/16 0605/13/16 0605 Results 24 hrs Laboratory Tests Test 05/12/16 14:50 05/12/16 17:30 05/12/16 19:23 05/12/16 21:10 Alanine Aminotransferase (ALT/SGPT) 27 Albumin 3.0 L Albumin/Globulin Ratio 0.76 Alkaline Phosphatase 104 Anion Gap 21 H Aspartate Amino Transf (AST/SGOT) 22 B-Type Natriuretic Peptide 29810 H Blood Morphology Comment Blood Urea Nitrogen 74 H Calcium Level 8.4 Carbon Dioxide Level 26 Chloride Level 95 L Creatine Kinase < 20 L < 20 L Creatine Kinase Index Creatinine 7.07 H Creatinine Kinase MB (Mass) 1.30 1.33 D-Dimer 1246.31 H D-Dimer Comment Differential Comment MANUAL DIFF Direct Bilirubin 0.00 Erythrocyte Sedimentation Rate 65 H Globulin 3.90 H Glucose Level 101 Hematocrit 34.8 L Hemoglobin 11.2 L Indirect Bilirubin 0.0 Lactic Acid Level 0.9 0.7 0.6 Lymphocytes # 0.4 L Lymphocytes % 2.0 L Magnesium Level 1.9 Mean Corpuscular Hemoglobin 29.0 Mean Corpuscular Hemoglobin Concent 32.2 Mean Corpuscular Volume 90.3 Mean Platelet Volume 7.4 Monocytes # 1.8 H Monocytes % 9.0 Neutrophils # 17.6 H Neutrophils % 89.0 H Phosphorus Level 5.7 H Platelet Count 342 Potassium Level 5.1 Red Blood Count 3.85 L Red Cell Distribution Width 17.3 H Sodium Level 137 Thyroid Stimulating Hormone (TSH) 0.824 Total Bilirubin 0.0 L Total Protein 6.9 Troponin I 0.016 0.026 Uric Acid 8.8 H White Blood Count 19.8 H Test 05/12/16 23:53 05/13/16 01:47 05/13/16 06:05 05/13/16 07:44 Troponin I 0.036 Bedside Glucose 96 102 Alanine Aminotransferase (ALT/SGPT) 20 Albumin 3.8 Albumin/Globulin Ratio 0.95 Alkaline Phosphatase 92 Anion Gap 21 H Aspartate Amino Transf (AST/SGOT) 18 Basophils # 0.0 Basophils % 0.1 Blood Morphology Comment Blood Urea Nitrogen 46 #H Calcium Level 9.0 Carbon Dioxide Level 29 Chloride Level 96 L Cholesterol Level 121 Cholesterol/HDL Ratio 7.5 Creatinine 5.42 H Digoxin Level < 0.4 L Direct Bilirubin 0.00 Eosinophils # 0.1 Eosinophils % 0.3 Globulin 4.00 H Glucose Level 112 HDL Cholesterol 16 L Hematocrit 34.0 L Hemoglobin 11.0 L Hemoglobin A1c 4.1 Indirect Bilirubin 0.2 LDL Cholesterol, Calculated 82 Lymphocytes # 1.2 Lymphocytes % 6.8 L Magnesium Level 1.9 Mean Corpuscular Hemoglobin 29.1 Mean Corpuscular Hemoglobin Concent 32.3 Mean Corpuscular Volume 90.1 Mean Platelet Volume 7.1 L Monocytes # 1.5 H Monocytes % 8.3 Neutrophils # 15.4 H Neutrophils % 84.5 H Nucleated Red Blood Cells # 0.0 Nucleated Red Blood Cells % 0.0 Phosphorus Level 5.4 H Platelet Count 338 Potassium Level 4.2 Red Blood Count 3.77 L Red Cell Distribution Width 17.2 H Sodium Level 142 Thyroid Stimulating Hormone (TSH) 0.909 Total Bilirubin 0.2 Total Protein 7.8 Triglycerides Level 113 White Blood Count 18.3 H Medications Medications Current Medications Ondansetron HCl (Zofran Tab) 4 mg Q6H PRN PO NAUSEA AND/OR VOMITING; Start at 14:30 Docusate Sodium (Colace) 100 mg Q12H PRN PO CONSTIPATION; Start 05/12/16 at 14: 30 Magnesium Hydroxide (Milk Of Mag) 30 ml DAILY PRN PO CONSTIPATION; Start at 14:30 Zolpidem Tartrate (Ambien) 5 mg QHS PRN PO SLEEP; Start 05/12/16 at 14:30 Heparin Sodium (Porcine) (Heparin (5000 Units/0.5 ml)) 5,000 unit Q12 SC Last administered on 05/12/16 21:01; Admin Dose 5,000 UNIT; Start 05/12/16 at 21:00 Acetaminophen (Tylenol Tab) 650 mg Q6H PRN PO PAIN AND OR ELEVATED TEMP; Start 05/13/16 at 00:00 Carvedilol (Coreg) 12.5 mg BID PO ; Start 05/13/16 at 09:00 Clonidine (Catapres) 0.1 mg TID PO ; Start 05/13/16 at 09:00 Clopidogrel Bisulfate (plaVIX) 75 mg DAILY PO ; Start 05/13/16 at 09:00 Epoetin Jordon (Epogen (Esrd)) 10,000 units MoWeFr@17 SC ; Start 05/13/16 at 17:00 Levalbuterol (Xopenex Hfa) 2 puff Q4H PRN INH WHEEZING AND SOB; Start 05/13/16 at 00:00 Minoxidil (Loniten) 5 mg BID PO ; Start 05/13/16 at 09:00 Nifedipine (Procardia Xl) 30 mg BID PO ; Start 05/13/16 at 09:00 Pantoprazole (Protonix Tab) 40 mg DAILY@06 PO Last administered on 05/13/16 06: 19; Admin Dose 40 MG; Start 05/13/16 at 06:00 Salmeterol Xinafoate/ Fluticasone (Advair 500/50 Diskus) 1 inh BID INH ; Start 05/13/16 at 09:00 Senna (Senokot) 1 tab DAILY PRN PO CONSTIPATION; Start 05/13/16 at 00:00 Tamsulosin HCl (Flomax) 0.4 mg HS PO ; Start 05/13/16 at 21:00 Tiotropium [place] (Spiriva) 1 inh BID INH ; Start 05/13/16 at 09:00 Valsartan (Diovan) 320 mg DAILY PO ; Start 05/13/16 at 09:00 Diagnostic Test (Pha) (Accucheck) 1 ea 02 XX Last administered on 05/13/16t 02: 02; Admin Dose 1 EA; Start 05/13/16 at 02:00 Miscellaneous Information 1 ea NOTE XX ; Start 05/12/16 at 23:45 Glucose (Glutose) 15 gm Q15M PRN PO DECREASED GLUCOSE; Start 05/12/16 at 23:45 Glucose (Glutose) 22.5 gm Q15M PRN PO DECREASED GLUCOSE; Start 05/12/16 at 23: 45 Dextrose (D50w Syringe) 25 ml Q15M PRN IV DECREASED GLUCOSE; Start 05/12/16 at 23:45 Dextrose (D50w Syringe) 50 ml Q15M PRN IV DECREASED GLUCOSE; Start 05/12/16 at 23:45 Glucagon (Glucagen) 1 mg Q15M PRN IM DECREASED GLUCOSE; Start 05/12/16 at 23:45 Glucose (Glutose) 15 gm Q15M PRN BUCCAL DECREASED GLUCOSE; Start 05/12/16 at 23 :45 ANDRE SMITH MD May 13, 2016 09:43
--- NOTE | 2016-05-13 09:48 | RADRPT ---
PROCEDURE: XR Chest. CLINICAL INDICATION: Shortness of breath. TECHNIQUE: Single frontal view. COMPARISON: 05/12/2016. FINDINGS: There is interstitial disease bilaterally consistent with pulmonary edema, unchanged. The lungs are otherwise clear. The heart is mildly enlarged. There is calcification in the aorta consistent with atherosclerosis. There is a tunneled right internal jugular vein dialysis catheter with the tip in the right atrium. There are small bilateral pleural effusions. Surgical clips are present in the soft tissues of the left upper extremity medially. There is no pneumothorax. IMPRESSION: 1. Unchanged pulmonary edema. 2. Mild cardiomegaly and atherosclerosis. 3. Dialysis catheter in satisfactory position. 4. Small bilateral pleural effusions. RPTAT: QQ .Kal Bowens MD, MD Date Time Electronically viewed and signed by .Kal Bowens MD, MD on 05/13/2016 09:48 .R/
[2016-05-13] MEDS: NIFEdipine (XL) 30 MG TAB PO SCH ×2 (10:02→22:30)
[2016-05-13] MEDS: TIOTROPIUM 18 MCG CAPSULE INHA DEV INH SCH ×2 (10:02→22:25)
[2016-05-13] MEDS: SALMETEROL/FLUTICASONE 500/50 INHA INH SCH ×2 (10:02→22:25)
[2016-05-13] MEDS: VALSARTAN 160 MG TAB PO SCH (10:02)
[2016-05-13] MEDS: MINOXIDIL 2.5 MG TAB PO SCH ×3 (10:03→22:32)
[2016-05-13] MEDS: CLOPIDOGREL 75 MG TAB PO SCH (10:03)
[2016-05-13] MEDS: HEPARIN 5,000 UNIT/0.5 ML SYG SC SCH ×2 (10:13→23:01)
--- NOTE | 2016-05-13 11:31 | CONS ---
DATE OF ADMISSION: 05/12/2016 DATE OF CONSULTATION: 05/13/2016 Thank you very much for allowing me to evaluate this 81-year-old male admitted with shortness of janett ath. HISTORICAL EVENTS: As you well know, this patient has had recurrent admissions here for symptoms of his underlying chronic obstructive pulmonary disease, interstitial lung disease and congestive hear t failure. The patient is having quite a difficult time trying to comply with 3 hour dialysis 3 charly es per week, always requesting to have his dialysis terminated early. It has been explained to the patient that 3 hours are needed, but nonetheless he demands to stop dialysis early. We have additio ariana changed dialysis facilities to be certain that the environment has been made optimal. Because of increasing shortness of breath and cough, the latter being nonproductive, he was readmitted. He additionally had some substernal chest pain. OTHER PAST MEDICAL HISTORY: Includes: 1. 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 2. Hypertension that has been difficult to control. 3. Interstitial lung disease. 4. Chronic obstructive pulmonary disease. 5. Known coronary artery disease, having had a stent placed in the right coronary artery in 11/2015 . A followup angiography in January revealed a stent to be patent and no critical occlusion. MEDICATIONS: 1. Albuterol p.r.n. 2. Aspirin 162 per day. 3. Coreg 12.5 b.i.d. 4. Clonidine p.r.n. 5. Plavix 75 per day. 6. Spiriva inhaler. 7. Synthroid 125 mcg per day. 8. Minoxidil 5 mg b.i.d. 9. Procardia 30 mg b.i.d. 10. Insulin sliding scale. 11. Protonix 40 per day. 12. Flomax 0.4 per day. 13. Diovan 320 per day. 14. Ambien 5 mg p.r.n. PHYSICAL EXAMINATION: GENERAL: Chronically ill male. VITAL SIGNS: BP 128/80, pulse 70, respirations 20, he was afebrile. EYES: Extraocular muscles were full. NOSE, MOUTH, AND THROAT: Normal. NECK: There was no JVD. LUNGS: Few rales and wheezes bilaterally. HEART: Rhythm regular. No third sound. ABDOMEN: Nontender. Liver and spleen were not palpable. No masses or tenderness were noted. EXTREMITIES: No edema. IMPRESSION: I believe this admission, his symptoms are more compatible with underlying chronic obst ructive pulmonary disease and likely bronchitis, CHF plays a lesser component. PLAN: We will evaluate for dialysis tomorrow. Will review with you the need for pulmonary followup . Dictated By: TRUE RANDALL/CAMILO Conf#: [id number] DID#: [id number]
[2016-05-13] MEDS: EPOETIN 10000 UNITS/1 ML INJ (ESRD) SC SCH ×2 (17:00→22:57)
[2016-05-13] MEDS ORDERED: GENTAMICIN IV PER PHARMACY XX SCH (18:00)
[2016-05-13] MEDS ORDERED: VANCOMYCIN IV PER PHARMACY XX SCH (18:00)
--- NOTE | 2016-05-13 18:26 | CONS ---
DATE OF ADMISSION: 05/12/2016 DATE OF CONSULTATION: 05/13/2016 TYPE OF CONSULTATION: Infectious Disease. REASON FOR CONSULTATION: Antibiotic management. HISTORY OF PRESENT ILLNESS: Racquel Kim is a 81-year-old [place] male who was admit [facility] with severe shortness of breath and is being seen for antibiotic management. His past problems include: 1. COPD. 2. Coronary artery disease with CHF. 3. End-stage renal disease on hemodialysis. The patient is on CPAP. 4. Hypertension. 5. Hypothyroidism. 6. Status post PermCath placement. 7. AV fistula placement. 8. Anemia of chronic disease. 9. BPH. On admission, his white count was 19.8, H and H 11.1 and 34.4, platelet count 339,000. BUN and crea tinine 70/6.87. Random glucose of 1.6. PAST MEDICAL HISTORY: Operations as outlined. FAMILY HISTORY: Noncontributory. SOCIAL HISTORY: He does not smoke, drink or abuse drugs. ALLERGIES: NONE TO PENICILLIN, SULFA OR FOODS. MEDICATIONS: Per chart. REVIEW OF SYSTEMS: As per HPI. PHYSICAL EXAMINATION: GENERAL: The patient is an elderly appearing white male who is on CPAP and is significantly short o f breath. VITAL SIGNS: Stable. He is afebrile. SKIN: Without generalized rash. HEENT: Difficult to evaluate secondary to CPAP. NECK: Supple. LYMPH NODES: None palpable. CHEST: Decreased breath sounds at the bases with tachypnea and accessory muscle use. HEART: Without murmur or gallop. ABDOMEN: Soft, nontender, without organosplenomegaly or masses. EXTREMITIES: Without cyanosis, clubbing, or edema. RECTAL AND GENITAL: Deferred. NEUROLOGIC: No focal neurological abnormalities. Chest x-ray shows worsening patchy right upper lobe, left perihilar and bilateral lower lobe infiltr ates. There is a small right pleural effusion. The thoracic aorta is calcified. There is mild car diomegaly. There is right-sided Perm-A-Cath in place. Heart, lung and mediastinum are unchanged. His white count today is 18.3. He may have received some vancomycin in the emergency room. I am go ing to dose him with vancomycin and gentamicin to cover the possibility of pneumonia and sepsis as w ell as UTI. I will dictate my findings to Dr. Mcallister and to Dr. Pang and Dr. Lake. Dictated By: BRENNA PALACIOS MD, JD/CAMILO Conf#: [id number] DID#: [id number]
[2016-05-13] MEDS ORDERED: GENTAMICIN 120 MG/NS (PMX) 100 ML IVPB SCH (21:00)
[2016-05-13] MEDS ORDERED: VITAMIN A & D 5 GM OINT PACKET TOP ONE (21:02)
[2016-05-13] MEDS: TAMSULOSIN (SR) 0.4 MG CAP PO SCH (22:26)
[2016-05-14] VITALS (29 sets, daily range): BP systolic 78–124; BP diastolic 30–72; PULSE 22–149; RESP 15–22
[2016-05-14] MEDS: IPRATROPIUM (NEB) 0.5 MG/2.5 ML AMP NEB SCH ×4 (01:40→21:13)
[2016-05-14] MEDS: ALBUTEROL 0.5% (NEB) 2.5 MG/0.5 ML AMP NEB SCH ×4 (01:41→21:13)
[2016-05-14] MEDS: LEVOTHYROXINE 125 MCG TAB PO SCH (06:38)
[2016-05-14] MEDS: PANTOPRAZOLE (EC) 40 MG TAB PO SCH (06:38)
[2016-05-14] MEDS ORDERED: GENTAMICIN 80 MG/NS (PMX) 50 ML IVPB SCH (07:00)
[2016-05-14 07:04] LABS: POTASSIUM 4.7 mmol/L (3.5-5.1)
[2016-05-14 07:07] LABS: CREATININE 6.88 mg/dl (0.61-1.24)
[2016-05-14 07:08] LABS: CALCIUM 8.6 mg/dl (8.4-10.2); PHOSPHORUS 6.2 mg/dl (2.5-4.9)
[2016-05-14 07:15] LABS: BASOPHILS % 0.2 % (0.0-2.0); EOSINOPHILS # 0.1 10^3/ul (0.0-0.5); EOSINOPHILS % 0.4 % (0.0-7.0); HEMATOCRIT 29.9 % (42.0-52.0); HEMOGLOBIN 9.8 g/dl (14.0-18.0); LYMPHOCYTES # 1.6 10^3/ul (0.8-2.9); LYMPHOCYTES % 10.4 % (15.0-51.0); MEAN CORPUSCULAR HEMOGLOBIN 29.2 pg (29.0-33.0); MEAN CORPUSCULAR HGB CONC 32.8 g/dl (32.0-37.0); MEAN CORPUSCULAR VOLUME 89.1 fl (82.0-101.0); MEAN PLATELET VOLUME 7.2 fl (7.4-10.4); MONOCYTE # 1.3 10^3/ul (0.3-0.9); MONOCYTES % 8.5 % (0.0-11.0); NEUTROPHIL # 12.2 10^3/ul (1.6-7.5); NEUTROPHILS % 80.5 % (39.0-77.0); PLATELET COUNT 325 10^3/UL (140-440); RED BLOOD COUNT 3.36 10^6/ul (4.70-6.10); RED CELL DISTRIBUTION WIDTH 16.5 % (11.5-14.5); UNCORRECTED WBC 15.1 10^3/ul (4.8-10.8); WHITE BLOOD COUNT 15.1 10^3/ul (4.8-10.8)
--- NOTE | 2016-05-14 07:24 | PN ---
Date/Time of Note Date/Time of Note DATE: 05/14/16 TIME: 07:18 Assessment/Plan VTE Prophylaxis VTE Prophylaxis Intervention: ambulation, anti-embolic stocking VTE Contraindication Reason: peripheral vascular disease Lines/Catheters IV Catheter Type (from Nrsg): [place] line still needed: No Urinary Cath still in place: No Reason Cath still needed: urinary retention Assessment/Plan Assessment/Plan 1. Pulmonarty edema with respiratory failure; Improved after HD. 2.. Leukocytosis 18k 3. Chest pain-s/p 2 angiographies and stenting-cardiology consult. 4. End-stage renal disease-on HD 5. Anxiety, depression with dissatisfaction 6. Diabetes type 2-better controlled 7. Osteoarthritis. 8. Anemia of chronic disease-H/H stable. 9. Status post multiple units of packed red blood cell transfusions. 10. Weight loss-more than 50lb in 8 months. 11. Hypertension-out of control during respiratory distress. 12. Memory impairment. 13. Major depression. 14. Back pain. 15. Benign prostatic hypertrophy. 16. S/P left forearm a/v shunt placement for dialysis-functions well , not mature yet. 17. S/P right Jugular vein cannulation for dialysis-no signs of infection. 18. Hypoxemia with hypercapnia on home 02 and BIPAP. 19. Anxiety; borderline personality; 20. Excessive thirst. 21. Constipation Cont'd Hospitalization Reason: respiratory disstress got worse. Subjective 24 Hr Interval Summary Free Text/Dictation Breathing mildly improved. Still I am unable to get enough oxygen. I think in hospital HD is more easy to tolerate than outpatient. Subjective hx not possible: other (very anxiouse, tense.) Constitutional: chills, diaphoresis, disoriented, poor po, requiring O2, No febrile, No improved, No no complaints, No other, No requiring IVF ENT: dysphagia, sore throat, No bleeding, No congestion, No discharge, No no complaints, No other, No pain Respiratory: cough, shortness of breath, No no complaints, No other, No pain, No pleuritic pain, No sputum, No wheezing Cardiovascular: chest pain, lightheadedness, orthopenea, No edema, No no complaints, No other, No palpitations, No paroxysmal nocturnal dyspnea Gastrointestinal: constipation, flatus, nausea, No blood, No decreased appetite, No diarrhea, No no complaints, No other, No pain, No passing stool, No vomiting Genitourinary: dysuria, No bleeding, No discharge, No flank pain, No hematuria, No no complaints, No other Musculoskeletal: back pain, bone/joint pain, neck pain, No no complaints, No other, No restricted range of motion, No swelling Neurologic: No confusion, No dizziness, No focal-weakness, No headache, No no complaints, No other, No seizure, No syncope Endocrine: No dry skin, No no complaints, No other, No polydypsia, No polyuria , No temp intolerance Lymphatic: No adenopathy, No lymphadema, No no complaints, No other, No tender nodes Psychological: anxiety, depression, other (impaired memory.), No confusion, No nl mood/affect, No no complaints, No suicidal Immunologic: pruritis, No immunodeficiency, No no complaints, No other, No rhinitis, No urticaria Exam/Review of Systems Vital Signs Vitals Vital Signs Date Time Temp Pulse Resp B/P Pulse Ox O2 Delivery O2 Flow Rate FiO2 05/14/16 05:03 100 100 40 05/14/16 03:49 98.3 15 115/64 05/12/16 16:25 BIPAP 05/12/16 16:22 15.0 Intake and Output 05/13/16 05/13/16 05/14/16 15:00 23:00 07:00 Intake Total 480 ml 180 ml Balance 480 ml 180 ml Exam Constitutional: alert, oriented, well developed, No distress, No frail, No non-verbal, No obese, No other Psych: anxiety, confusion, depression, No nl mood/affect, No no complaints, No other, No suicidal Head: atraumatic, normocephalic, No hematomas, No lacerations, No other Eyes: EOMI, PERRL, nl lids, No fundi, disc, No icteric, No nl conjunctiva, No nl sclera, No other ENMT: nl external ears & nose, nl nasal mucosa & septum, No intubated, No mucosa pink and moist, No nl lips & teeth, No other, No tympanic membranes Neck: bruits, jvd, nuchal rigidity, No masses, No non-tender, No other, No supple, No thyromegaly Respiratory: congested cough, diminished breath sounds, respirations Cardiovascular: bruits, regular rate and rhythm, systolic murmur, No S3, No S4, No diastolic murmur, No edema, No gallop, No irregular rhythm, No jugular venous distention (JVD), No murmurs/extra sounds, No nl pulses, No other, No rub Gastrointestinal: distended, non-tender, soft, No ascites, No bowel sounds, No firm, No hepatomegaly, No mass, No nl liver, spleen, No other, No rebound or guarding, No splenomegaly, No surgical scars, No tender Genitourinary - Male: nl penis, nl scrotum, No CVA tenderness, No discharge, No other Musculoskeletal: joint tenderness, muscle tone, muscle weakness, No nl extremities to inspection, No nl gait and stance, No other, No range of motion, No spine non-tender, No swelling Extremities: normal pulses, No calf tenderness, No clubbing, No cyanosis, No edema, No other, No palpable cord, No pitting pedal edema, No tenderness Neurological: JIG FITTER II-XII intact, No DTR's symmetric, No confused, No focal weakness, No lethargic, No nl mental status, No nl speech, No nl strength, No numbness, No other, No reflexes , No unresponsive Skin: diaphoresis, No ecchymosis, No laceration, No nl turgor, No other, No puncture, No rash or lesions Results Result Diagram: 05/13/1660405/13/16604 Results 24 hrs Laboratory Tests Test 05/13/16 07:44 05/13/16 11:01 05/13/16 17:25 05/13/16 21:35 Bedside Glucose 102 98 85 78 Medications Medications Current Medications Ondansetron HCl (Zofran Tab) 4 mg Q6H PRN PO NAUSEA AND/OR VOMITING; Start at 14:30 Docusate Sodium (Colace) 100 mg Q12H PRN PO CONSTIPATION; Start 05/12/16 at 14: 30 Magnesium Hydroxide (Milk Of Mag) 30 ml DAILY PRN PO CONSTIPATION; Start at 14:30 Zolpidem Tartrate (Ambien) 5 mg QHS PRN PO SLEEP; Start 05/12/16 at 14:30 Heparin Sodium (Porcine) (Heparin (5000 Units/0.5 ml)) 5,000 unit Q12 SC Last administered on 05/13/16 23:01; Admin Dose 5,000 UNIT; Start 05/12/16 at 21:00 Acetaminophen (Tylenol Tab) 650 mg Q6H PRN PO PAIN AND OR ELEVATED TEMP; Start 05/13/16 at 00:00 Carvedilol (Coreg) 12.5 mg BID PO Last administered on 05/13/16 22:28; Admin Dose 12.5 MG; Start 05/13/16 at 09:00 Clonidine (Catapres) 0.1 mg TID PO Last administered on 05/13/16 10:03; Admin Dose 0.1 MG; Start 05/13/16 at 09:00 Clopidogrel Bisulfate (plaVIX) 75 mg DAILY PO Last administered on 05/13/16 10: 03; Admin Dose 75 MG; Start 05/13/16 at 09:00 Epoetin Jordon (Epogen (Esrd)) 10,000 units MoWeFr@17 SC Last administered on 05/13 22:57; Admin Dose 10,000 UNITS; Start 05/13/16 at 17:00 Levalbuterol (Xopenex Hfa) 2 puff Q4H PRN INH WHEEZING AND SOB; Start 05/13/16 at 00:00 Minoxidil (Loniten) 5 mg BID PO ; Start 05/13/16 at 09:00 Nifedipine (Procardia Xl) 30 mg BID PO Last administered on 05/13/16 10:02; Admin Dose 30 MG; Start 05/13/16 at 09:00 Pantoprazole (Protonix Tab) 40 mg DAILY@06 PO Last administered on 05/14/16 06: 38; Admin Dose 40 MG; Start 05/13/16 at 06:00 Salmeterol Xinafoate/ Fluticasone (Advair 500/50 Diskus) 1 inh BID INH Last administered on 05/13/16 22:25; Admin Dose 1 INH; Start 05/13/16 at 09:00 Senna (Senokot) 1 tab DAILY PRN PO CONSTIPATION; Start 05/13/16 at 00:00 Tamsulosin HCl (Flomax) 0.4 mg HS PO Last administered on 05/13/16 22:26; Admin Dose 0.4 MG; Start 05/13/16 at 21:00 Tiotropium [place] (Spiriva) 1 inh BID INH Last administered on 05/13/16 22:25 ; Admin Dose 1 INH; Start 05/13/16 at 09:00 Valsartan (Diovan) 320 mg DAILY PO Last administered on 05/13/16 10:02; Admin Dose 320 MG; Start 05/13/16 at 09:00 Diagnostic Test (Pha) (Accucheck) 1 ea 02 XX Last administered on 05/13/16 02: 02; Admin Dose 1 EA; Start 05/13/16 at 02:00 Miscellaneous Information 1 ea NOTE XX ; Start 05/12/16 at 23:45 Glucose (Glutose) 15 gm Q15M PRN PO DECREASED GLUCOSE; Start 05/12/16 at 23:45 Glucose (Glutose) 22.5 gm Q15M PRN PO DECREASED GLUCOSE; Start 05/12/16 at 23: 45 Dextrose (D50w Syringe) 25 ml Q15M PRN IV DECREASED GLUCOSE; Start 05/12/16 at 23:45 Dextrose (D50w Syringe) 50 ml Q15M PRN IV DECREASED GLUCOSE; Start 05/12/16 at 23:45 Glucagon (Glucagen) 1 mg Q15M PRN IM DECREASED GLUCOSE; Start 05/12/16 at 23:45 Glucose (Glutose) 15 gm Q15M PRN BUCCAL DECREASED GLUCOSE; Start 05/12/16 at 23 :45 Gentamicin Sulfate (Gentamicin Iv Per Pharmacy) GENTAMICIN PER PHARMACY NOTE XX ; Start 05/13/16 at 18:00 HINA CASTILLO MD May 14, 2016 07:24
[2016-05-14 07:26] LABS: CONDITION 1; LH ANALYZER COMMENTS 1
[2016-05-14] MEDS: INSULIN ASPART [NOVOLOG] 3 ML PEN SC SCH ×4 (07:55→21:00)
[2016-05-14] MEDS: MINOXIDIL 2.5 MG TAB PO SCH ×2 (08:15→21:00)
[2016-05-14] MEDS: TIOTROPIUM 18 MCG CAPSULE INHA DEV INH SCH ×2 (10:15→22:40)
[2016-05-14] MEDS: SALMETEROL/FLUTICASONE 500/50 INHA INH SCH ×2 (10:15→22:40)
[2016-05-14] MEDS: VALSARTAN 160 MG TAB PO SCH (10:16)
[2016-05-14] MEDS: NIFEdipine (XL) 30 MG TAB PO SCH ×2 (10:16→21:00)
[2016-05-14] MEDS: HEPARIN 5,000 UNIT/0.5 ML SYG SC SCH ×2 (10:16→21:00)
[2016-05-14] MEDS: CLOPIDOGREL 75 MG TAB PO SCH (10:17)
[2016-05-14] MEDS ORDERED: HEPARIN 1000 UNITS/ML 10 ML INJ CATHETER ONE (11:00)
[2016-05-14] MEDS ORDERED: VANCOMYCIN 1 GM in NS 250 ML IVPB SCH (11:00)
--- NOTE | 2016-05-14 11:14 | CONS ---
Date/Time of Note Date/Time of Note DATE: 05/14/16 TIME: 11:12 Assessment/Plan Assessment/Plan Additional Assessment/Plan 1. CKD, to have HD today 2. ASHD, CHF, will improve with HD today 3. Pneumonia, abx in place and ID note rev 4. Anemia noted, procrit ordered. Consultation Date/Type/Reason Admit Date/Time May 12, 2016 at 09:46 Initial Consult Date Detailed Summary Respiratory: cough (that is not productive), shortness of breath Cardiovascular: No chest pain Gastrointestinal: no complaints, No pain, No vomiting Genitourinary: no complaints Exam/Review of Systems Vital Signs Vitals Vital Signs Date Time Temp Pulse Resp B/P Pulse Ox O2 Delivery O2 Flow Rate FiO2 05/14/16 09:47 102 05/14/16 07:59 97.9 20 120/60 98 05/14/16 07:30 40 05/12/16 16:25 BIPAP 05/12/16 16:22 15.0 Intake and Output 05/13/16 05/13/16 05/14/16 15:00 23:00 07:00 Intake Total 480 ml 180 ml Balance 480 ml 180 ml Exam Neck: No jvd Respiratory: diminished breath sounds (and few rhonchi bilat) Cardiovascular: regular rate and rhythm, No S3 Gastrointestinal: soft Extremities: No edema (adn no calf tend) Results Result Diagram: 05/14/16 0630 05/14/16 0630 Results 24 hrs Laboratory Tests Test 05/13/16 17:25 05/13/16 21:35 05/14/16 06:30 05/14/16 07:29 Bedside Glucose 85 78 114 Anion Gap 19 H Basophils # 0.0 Basophils % 0.2 Blood Morphology Comment Blood Urea Nitrogen 61 H Calcium Level 8.6 Carbon Dioxide Level 27 Chloride Level 96 L Creatinine 6.88 H Eosinophils # 0.1 Eosinophils % 0.4 Glucose Level 88 Hematocrit 29.9 L Hemoglobin 9.8 L Lymphocytes # 1.6 Lymphocytes % 10.4 L Mean Corpuscular Hemoglobin 29.2 Mean Corpuscular Hemoglobin Concent 32.8 Mean Corpuscular Volume 89.1 Mean Platelet Volume 7.2 L Monocytes # 1.3 H Monocytes % 8.5 Neutrophils # 12.2 H Neutrophils % 80.5 H Nucleated Red Blood Cells # 0.0 Nucleated Red Blood Cells % 0.0 Phosphorus Level 6.2 H Platelet Count 325 Potassium Level 4.7 Random Vancomycin Level 11.2 Red Blood Count 3.36 L Red Cell Distribution Width 16.5 H Sodium Level 137 White Blood Count 15.1 H Test 05/14/16 11:06 Bedside Glucose 108 Medications Medications Current Medications Ondansetron HCl (Zofran Tab) 4 mg Q6H PRN PO NAUSEA AND/OR VOMITING; Start at 14:30 Docusate Sodium (Colace) 100 mg Q12H PRN PO CONSTIPATION; Start 05/12/16 at 14: 30 Magnesium Hydroxide (Milk Of Mag) 30 ml DAILY PRN PO CONSTIPATION; Start at 14:30 Zolpidem Tartrate (Ambien) 5 mg QHS PRN PO SLEEP; Start 05/12/16 at 14:30 Heparin Sodium (Porcine) (Heparin (5000 Units/0.5 ml)) 5,000 unit Q12 SC Last administered on 05/13/16 23:01; Admin Dose 5,000 UNIT; Start 05/12/16 at 21:00 Acetaminophen (Tylenol Tab) 650 mg Q6H PRN PO PAIN AND OR ELEVATED TEMP; Start 05/13/16 at 00:00 Carvedilol (Coreg) 12.5 mg BID PO Last administered on 05/13/16 22:28; Admin Dose 12.5 MG; Start 05/13/16 at 09:00 Clonidine (Catapres) 0.1 mg TID PO Last administered on 05/13/16 10:03; Admin Dose 0.1 MG; Start 05/13/16 at 09:00 Clopidogrel Bisulfate (plaVIX) 75 mg DAILY PO Last administered on 05/13/16 10: 03; Admin Dose 75 MG; Start 05/13/16 at 09:00 Epoetin Jordon (Epogen (Esrd)) 10,000 units MoWeFr@17 SC Last administered on 05/13 22:57; Admin Dose 10,000 UNITS; Start 05/13/16 at 17:00 Levalbuterol (Xopenex Hfa) 2 puff Q4H PRN INH WHEEZING AND SOB; Start 05/13/16 at 00:00 Minoxidil (Loniten) 5 mg BID PO ; Start 05/13/16 at 09:00 Nifedipine (Procardia Xl) 30 mg BID PO Last administered on 05/13/16 10:02; Admin Dose 30 MG; Start 05/13/16 at 09:00 Pantoprazole (Protonix Tab) 40 mg DAILY@06 PO Last administered on 05/14/16 06: 38; Admin Dose 40 MG; Start 05/13/16 at 06:00 Salmeterol Xinafoate/ Fluticasone (Advair 500/50 Diskus) 1 inh BID INH Last administered on 05/13/16 22:25; Admin Dose 1 INH; Start 05/13/16 at 09:00 Senna (Senokot) 1 tab DAILY PRN PO CONSTIPATION; Start 05/13/16 at 00:00 Tamsulosin HCl (Flomax) 0.4 mg HS PO Last administered on 05/13/16 22:26; Admin Dose 0.4 MG; Start 05/13/16 at 21:00 Tiotropium [place] (Spiriva) 1 inh BID INH Last administered on 05/13/16 22:25 ; Admin Dose 1 INH; Start 05/13/16 at 09:00 Valsartan (Diovan) 320 mg DAILY PO Last administered on 05/13/16 10:02; Admin Dose 320 MG; Start 05/13/16 at 09:00 Diagnostic Test (Pha) (Accucheck) 1 ea 02 XX Last administered on 05/13/16 02: 02; Admin Dose 1 EA; Start 05/13/16 at 02:00 Miscellaneous Information 1 ea NOTE XX ; Start 05/12/16 at 23:45 Glucose (Glutose) 15 gm Q15M PRN PO DECREASED GLUCOSE; Start 05/12/16 at 23:45 Glucose (Glutose) 22.5 gm Q15M PRN PO DECREASED GLUCOSE; Start 05/12/16 at 23: 45 Dextrose (D50w Syringe) 25 ml Q15M PRN IV DECREASED GLUCOSE; Start 05/12/16 at 23:45 Dextrose (D50w Syringe) 50 ml Q15M PRN IV DECREASED GLUCOSE; Start 05/12/16 at 23:45 Glucagon (Glucagen) 1 mg Q15M PRN IM DECREASED GLUCOSE; Start 05/12/16 at 23:45 Glucose (Glutose) 15 gm Q15M PRN BUCCAL DECREASED GLUCOSE; Start 05/12/16 at 23 :45 Gentamicin Sulfate GENTAMICIN PER PHARMACY NOTE XX ; Start 05/13/16 at 18:00 Vancomycin HCl 250 ml @ 125 mls/hr ONCE IVPB ; Start 05/14/16 at 11:00; Stop 05/14/16 at 16:00 Albumin Human (Albumin Human 25%) 100 ml @ 100 mls/hr Q1H IV ; Start 05/14/16 at 11:00; Stop 05/14/16 at 12:59 TRUE GTZ MD May 14, 2016 11:14
[2016-05-14] MEDS: ALBUMIN HUMAN 25% 100 ML IV SCH (12:00)
--- NOTE | 2016-05-14 17:54 | PN ---
DATE: 05/14/2016 SUBJECTIVE: Patient is in hemodialysis. He is slightly tachycardic and tachypneic on BiPAP, in no distress. Son at bedside. WBC today decreased to 16.1, platelets 325, neutrophils 80.5. INDWELLINGS: Right chest PermCath. MICROBIOLOGY: Blood cultures since admission have been negative. DIAGNOSTICS: Chest x-ray revealed pulmonary edema with small bilateral pleural effusions. ANTIMICROBIALS: The patient is on: 1. IV vancomycin. 2. Gentamicin. PHYSICAL EXAMINATION: GENERAL: This is a fragile, elderly man who is in no distress. HEENT: Head atraumatic, normocephalic. Sclerae anicteric. Buccal mucosa dry. NECK: Supple, trachea midline. CHEST: Rise symmetrical. Breath sounds with bilateral scattered crackles. HEART: S1, S2. ABDOMEN: Soft, bowel sounds present. EXTREMITIES: No cyanosis. ASSESSMENT: 1. Sepsis with acute hypoxemic respiratory failure, likely secondary to pulmonary edema. Rule out pneumonia. 2. Persistent leukocytosis, tracing down and so far cultures have been negative. 3. End-stage renal disease, hemodialysis dependent. 4. Right chest Perm-A-Cath. 5. Anemia. 6. Benign prostatic hypertrophy. 7. Chronic obstructive pulmonary disease with exacerbation. PLAN: We are going to repeat blood cultures from PermCath with hemodialysis. Continue him on curre nt antimicrobials. Consider pulmonary evaluation. Await for final cultures. Dictated By: TRISH CUELLO SECTION HOUSEKEEPER for BRENNA PALACIOS MD NI/NTS Conf#: [id number] DID#: [id number]
--- NOTE | 2016-05-14 18:03 | CONS ---
Date/Time of Note Date/Time of Note DATE: 05/14/16 TIME: 18:03 Assessment/Plan Assessment/Plan Chief Complaint/Hosp Course Anemia - CHRONIC, MULTIFACTORIAL WITH COMPONENT ACD AND IRON DEFICIENCY CONT TO MONITOR BLOOD COUNT CLOSELY OBSERVE FOR BLEEDING AND HEMOLYSIS TRANSFUSE NEEDED EPO WITH HD Acute respiratory failure. Pneumonia with sputum culture growing Branhamella catarrhalis/PSA. End-stage renal disease, hemodialysis dependent. Right chest Perm-A-Cath. Chronic obstructive pulmonary disease exacerbation. Problems: Consultation Date/Type/Reason Admit Date/Time May 12, 2016 at 09:46 Initial Consult Date 05.12.16 Type of Consultation: HEMEONC Reason for Consultation ANEMIA Referring Provider: HINA CASTILLO MD 24 HR Interval Summary Free Text/Dictation Respiratory: cough (that is not productive), shortness of breath Cardiovascular: No chest pain Gastrointestinal: no complaints, No pain, No vomiting Genitourinary: no complaints ALL NOTED NO BLEEDING COUNT STABLE Exam/Review of Systems Vital Signs Vitals Vital Signs Date Time Temp Pulse Resp B/P Pulse Ox O2 Delivery O2 Flow Rate FiO2 05/14/16 17:25 114 97 40 05/14/16 15:44 98.4 20 124/72 05/12/16 16:25 BIPAP 05/12/16 16:22 15.0 Intake and Output 05/13/16 05/13/16 05/14/16 14:59 22:59 06:59 Intake Total 480 ml 180 ml Balance 480 ml 180 ml Exam Constitutional: alert, frail, No well developed Psych: anxiety, depression, no complaints Head: normocephalic Eyes: nl conjunctiva ENMT: nl external ears & nose Neck: jvd, supple Respiratory: congested cough Cardiovascular: other, regular rate and rhythm, systolic murmur, No edema Gastrointestinal: nl liver, spleen, soft Musculoskeletal: nl extremities to inspection Results Result Diagram: 05/14/16 0630 05/14/16 0630 Results 24 hrs Laboratory Tests Test 05/13/16 21:35 05/14/16 06:30 05/14/16 07:29 05/14/16 11:06 Bedside Glucose 78 114 108 Anion Gap 19 H Basophils # 0.0 Basophils % 0.2 Blood Morphology Comment Blood Urea Nitrogen 61 H Calcium Level 8.6 Carbon Dioxide Level 27 Chloride Level 96 L Creatinine 6.88 H Eosinophils # 0.1 Eosinophils % 0.4 Glucose Level 88 Hematocrit 29.9 L Hemoglobin 9.8 L Lymphocytes # 1.6 Lymphocytes % 10.4 L Mean Corpuscular Hemoglobin 29.2 Mean Corpuscular Hemoglobin Concent 32.8 Mean Corpuscular Volume 89.1 Mean Platelet Volume 7.2 L Monocytes # 1.3 H Monocytes % 8.5 Neutrophils # 12.2 H Neutrophils % 80.5 H Nucleated Red Blood Cells # 0.0 Nucleated Red Blood Cells % 0.0 Phosphorus Level 6.2 H Platelet Count 325 Potassium Level 4.7 Random Vancomycin Level 11.2 Red Blood Count 3.36 L Red Cell Distribution Width 16.5 H Sodium Level 137 White Blood Count 15.1 H Test 05/14/16 17:27 Bedside Glucose 87 Medications Medications Current Medications Ondansetron HCl (Zofran Tab) 4 mg Q6H PRN PO NAUSEA AND/OR VOMITING; Start at 14:30 Docusate Sodium (Colace) 100 mg Q12H PRN PO CONSTIPATION; Start 05/12/16 at 14: 30 Magnesium Hydroxide (Milk Of Mag) 30 ml DAILY PRN PO CONSTIPATION; Start at 14:30 Zolpidem Tartrate (Ambien) 5 mg QHS PRN PO SLEEP; Start 05/12/16 at 14:30 Heparin Sodium (Porcine) (Heparin (5000 Units/0.5 ml)) 5,000 unit Q12 SC Last administered on 05/13/16 23:01; Admin Dose 5,000 UNIT; Start 05/12/16 at 21:00 Acetaminophen (Tylenol Tab) 650 mg Q6H PRN PO PAIN AND OR ELEVATED TEMP; Start 05/13/16 at 00:00 Carvedilol (Coreg) 12.5 mg BID PO Last administered on 05/13/16 22:28; Admin Dose 12.5 MG; Start 05/13/16 at 09:00 Clonidine (Catapres) 0.1 mg TID PO Last administered on 05/13/16 10:03; Admin Dose 0.1 MG; Start 05/13/16 at 09:00 Clopidogrel Bisulfate (plaVIX) 75 mg DAILY PO Last administered on 05/13/16 10: 03; Admin Dose 75 MG; Start 05/13/16 at 09:00 Epoetin Jordon (Epogen (Esrd)) 10,000 units MoWeFr@17 SC Last administered on 05/13 22:57; Admin Dose 10,000 UNITS; Start 05/13/16 at 17:00 Levalbuterol (Xopenex Hfa) 2 puff Q4H PRN INH WHEEZING AND SOB; Start 05/13/16 at 00:00 Minoxidil (Loniten) 5 mg BID PO ; Start 05/13/16 at 09:00 Nifedipine (Procardia Xl) 30 mg BID PO Last administered on 05/13/16 10:02; Admin Dose 30 MG; Start 05/13/16 at 09:00 Pantoprazole (Protonix Tab) 40 mg DAILY@06 PO Last administered on 05/14/16 06: 38; Admin Dose 40 MG; Start 05/13/16 at 06:00 Salmeterol Xinafoate/ Fluticasone (Advair 500/50 Diskus) 1 inh BID INH Last administered on 05/13/16 22:25; Admin Dose 1 INH; Start 05/13/16 at 09:00 Senna (Senokot) 1 tab DAILY PRN PO CONSTIPATION; Start 05/13/16 at 00:00 Tamsulosin HCl (Flomax) 0.4 mg HS PO Last administered on 05/13/16 22:26; Admin Dose 0.4 MG; Start 05/13/16 at 21:00 Tiotropium [place] (Spiriva) 1 inh BID INH Last administered on 05/13/16 22:25 ; Admin Dose 1 INH; Start 05/13/16 at 09:00 Valsartan (Diovan) 320 mg DAILY PO Last administered on 05/13/16 10:02; Admin Dose 320 MG; Start 05/13/16 at 09:00 Diagnostic Test (Pha) (Accucheck) 1 ea 02 XX Last administered on 05/13/16 02: 02; Admin Dose 1 EA; Start 05/13/16 at 02:00 Miscellaneous Information 1 ea NOTE XX ; Start 05/12/16 at 23:45 Glucose (Glutose) 15 gm Q15M PRN PO DECREASED GLUCOSE; Start 05/12/16 at 23:45 Glucose (Glutose) 22.5 gm Q15M PRN PO DECREASED GLUCOSE; Start 05/12/16 at 23: 45 Dextrose (D50w Syringe) 25 ml Q15M PRN IV DECREASED GLUCOSE; Start 05/12/16 at 23:45 Dextrose (D50w Syringe) 50 ml Q15M PRN IV DECREASED GLUCOSE; Start 05/12/16 at 23:45 Glucagon (Glucagen) 1 mg Q15M PRN IM DECREASED GLUCOSE; Start 05/12/16 at 23:45 Glucose (Glutose) 15 gm Q15M PRN BUCCAL DECREASED GLUCOSE; Start 05/12/16 at 23 :45 Gentamicin Sulfate (Gentamicin Iv Per Pharmacy) GENTAMICIN PER PHARMACY NOTE XX ; Start 05/13/16 at 18:00 ANDRE SMITH MD May 14, 2016 18:03
--- NOTE | 2016-05-14 19:18 | RADRPT ---
Vent Rate: 102 bpm RR Interval: 0 msec [place] Interval: 178 msec QRS Duration: 78 msec QT Interval: 338 msec QTC Interval: 440 msec P-R-T [place]: 0 - 26 - 68 degrees Sinus tachycardia with fusion complexes Anterior infarct , age undetermined Abnormal ECG Electronically Signed By: Emmett Lozano [phone]
[2016-05-14] MEDS: TAMSULOSIN (SR) 0.4 MG CAP PO SCH (21:01)
[2016-05-15] VITALS (19 sets, daily range): BP systolic 119–155; BP diastolic 56–72; PULSE 80–129; RESP 16–22
[2016-05-15] MEDS: ACCUCHECK XX SCH (02:00)
[2016-05-15] MEDS: IPRATROPIUM (NEB) 0.5 MG/2.5 ML AMP NEB SCH ×4 (02:07→19:48)
[2016-05-15] MEDS: ALBUTEROL 0.5% (NEB) 2.5 MG/0.5 ML AMP NEB SCH ×4 (02:07→19:48)
[2016-05-15 06:37] LABS: POTASSIUM 4.1 mmol/L (3.5-5.1)
[2016-05-15 06:39] LABS: CREATININE 5.88 mg/dl (0.61-1.24)
[2016-05-15 06:40] LABS: CALCIUM 8.9 mg/dl (8.4-10.2)
[2016-05-15 06:50] LABS: BASOPHIL # 0.1 10^3/ul (0.0-0.1); BASOPHILS % 0.4 % (0.0-2.0); EOSINOPHILS # 0.1 10^3/ul (0.0-0.5); EOSINOPHILS % 0.5 % (0.0-7.0); HEMOGLOBIN 10.2 g/dl (14.0-18.0); LYMPHOCYTES % 14.2 % (15.0-51.0); MEAN CORPUSCULAR HEMOGLOBIN 29.3 pg (29.0-33.0); MEAN CORPUSCULAR HGB CONC 32.9 g/dl (32.0-37.0); MEAN CORPUSCULAR VOLUME 89.3 fl (82.0-101.0); MONOCYTE # 1.1 10^3/ul (0.3-0.9); MONOCYTES % 8.2 % (0.0-11.0); NEUTROPHIL # 10.6 10^3/ul (1.6-7.5); NEUTROPHILS % 76.7 % (39.0-77.0); PLATELET COUNT 378 10^3/UL (140-440); RED BLOOD COUNT 3.47 10^6/ul (4.70-6.10); RED CELL DISTRIBUTION WIDTH 16.4 % (11.5-14.5); UNCORRECTED WBC 13.9 10^3/ul (4.8-10.8); WHITE BLOOD COUNT 13.9 10^3/ul (4.8-10.8)
[2016-05-15] MEDS: INSULIN ASPART [NOVOLOG] 3 ML PEN SC SCH ×4 (07:55→20:27)
[2016-05-15 08:00] LABS: CONDITION 1; LH ANALYZER COMMENTS 1
--- NOTE | 2016-05-15 08:19 | CONS ---
Date/Time of Note Date/Time of Note DATE: 05/15/16 TIME: 08:18 Assessment/Plan Assessment/Plan Additional Assessment/Plan 1. CHF is improving 2. Pneumonia, abx per id 3. CKD, to have HD tomm 4. BP controlled 5. Sugar is acceptable Consultation Date/Type/Reason Admit Date/Time May 12, 2016 at 09:46 Detailed Summary Respiratory: shortness of breath Cardiovascular: No chest pain Gastrointestinal: no complaints Genitourinary: No dysuria Exam/Review of Systems Vital Signs Vitals Vital Signs Date Time Temp Pulse Resp B/P Pulse Ox O2 Delivery O2 Flow Rate FiO2 05/15/16 08:11 101 20 97 40 05/15/16 07:10 98.1 141/58 05/12/16 16:25 BIPAP 05/12/16 16:22 15.0 Intake and Output 05/14/16 05/14/16 05/15/16 15:00 23:00 07:00 Intake Total 600 ml 200 ml 150 ml Output Total 4100 ml 0 ml Balance -3500 ml 200 ml 150 ml Exam Neck: No jvd Respiratory: other (less rhonchi and rales) Cardiovascular: No regular rate and rhythm Gastrointestinal: soft Extremities: No edema Results Result Diagram: 05/15/16 0550 05/15/16 0550 Results 24 hrs Laboratory Tests Test 05/14/16 11:06 05/14/16 17:27 05/14/16 20:46 05/15/16 05:50 Bedside Glucose 108 87 84 Anion Gap 22 H Basophils # 0.1 Basophils % 0.4 Blood Morphology Comment Blood Urea Nitrogen 45 #H Calcium Level 8.9 Carbon Dioxide Level 25 Chloride Level 97 Creatinine 5.88 H Eosinophils # 0.1 Eosinophils % 0.5 Glucose Level 79 Hematocrit 31.0 L Hemoglobin 10.2 L Lymphocytes # 2.0 Lymphocytes % 14.2 L Mean Corpuscular Hemoglobin 29.3 Mean Corpuscular Hemoglobin Concent 32.9 Mean Corpuscular Volume 89.3 Mean Platelet Volume 7.0 L Monocytes # 1.1 H Monocytes % 8.2 Neutrophils # 10.6 H Neutrophils % 76.7 Nucleated Red Blood Cells # 0.0 Nucleated Red Blood Cells % 0.0 Platelet Count 378 Potassium Level 4.1 Red Blood Count 3.47 L Red Cell Distribution Width 16.4 H Sodium Level 140 White Blood Count 13.9 H Test 05/15/16 07:53 Bedside Glucose 80 Medications Medications Current Medications Ondansetron HCl (Zofran Tab) 4 mg Q6H PRN PO NAUSEA AND/OR VOMITING; Start at 14:30 Docusate Sodium (Colace) 100 mg Q12H PRN PO CONSTIPATION; Start 05/12/16 at 14: 30 Magnesium Hydroxide (Milk Of Mag) 30 ml DAILY PRN PO CONSTIPATION; Start at 14:30 Zolpidem Tartrate (Ambien) 5 mg QHS PRN PO SLEEP; Start 05/12/16 at 14:30 Heparin Sodium (Porcine) (Heparin (5000 Units/0.5 ml)) 5,000 unit Q12 SC Last administered on 05/13/16 23:01; Admin Dose 5,000 UNIT; Start 05/12/16 at 21:00 Acetaminophen (Tylenol Tab) 650 mg Q6H PRN PO PAIN AND OR ELEVATED TEMP; Start 05/13/16 at 00:00 Carvedilol (Coreg) 12.5 mg BID PO Last administered on 05/13/16 22:28; Admin Dose 12.5 MG; Start 05/13/16 at 09:00 Clonidine (Catapres) 0.1 mg TID PO Last administered on 05/13/16 10:03; Admin Dose 0.1 MG; Start 05/13/16 at 09:00 Clopidogrel Bisulfate (plaVIX) 75 mg DAILY PO Last administered on 05/13/16 10: 03; Admin Dose 75 MG; Start 05/13/16 at 09:00 Epoetin [place] (Epogen (Esrd)) 10,000 units MoWeFr@17 SC Last administered on 05/13 22:57; Admin Dose 10,000 UNITS; Start 05/13/16 at 17:00 Levalbuterol (Xopenex Hfa) 2 puff Q4H PRN INH WHEEZING AND SOB; Start 05/13/16 at 00:00 Minoxidil (Loniten) 5 mg BID PO ; Start 05/13/16 at 09:00 Nifedipine (Procardia Xl) 30 mg BID PO Last administered on 05/13/16 10:02; Admin Dose 30 MG; Start 05/13/16 at 09:00 Pantoprazole (Protonix Tab) 40 mg DAILY@06 PO Last administered on 05/14/16 06: 38; Admin Dose 40 MG; Start 05/13/16 at 06:00 Salmeterol Xinafoate/ Fluticasone (Advair 500/50 Diskus) 1 inh BID INH Last administered on 05/14/16 22:40; Admin Dose 1 INH; Start 05/13/16 at 09:00 Senna (Senokot) 1 tab DAILY PRN PO CONSTIPATION; Start 05/13/16 at 00:00 Tamsulosin HCl (Flomax) 0.4 mg HS PO Last administered on 05/14/16 21:01; Admin Dose 0.4 MG; Start 05/13/16 at 21:00 Tiotropium [place] (Spiriva) 1 inh BID INH Last administered on 05/14/16 22:40 ; Admin Dose 1 INH; Start 05/13/16 at 09:00 Valsartan (Diovan) 320 mg DAILY PO Last administered on 05/13/16 10:02; Admin Dose 320 MG; Start 05/13/16 at 09:00 Diagnostic Test (Pha) (Accucheck) 1 ea 02 XX Last administered on 05/13/16 02: 02; Admin Dose 1 EA; Start 05/13/16 at 02:00 Miscellaneous Information 1 ea NOTE XX ; Start 05/12/16 at 23:45 Glucose (Glutose) 15 gm Q15M PRN PO DECREASED GLUCOSE; Start 05/12/16 at 23:45 Glucose (Glutose) 22.5 gm Q15M PRN PO DECREASED GLUCOSE; Start 05/12/16 at 23: 45 Dextrose (D50w Syringe) 25 ml Q15M PRN IV DECREASED GLUCOSE; Start 05/12/16 at 23:45 Dextrose (D50w Syringe) 50 ml Q15M PRN IV DECREASED GLUCOSE; Start 05/12/16 at 23:45 Glucagon (Glucagen) 1 mg Q15M PRN IM DECREASED GLUCOSE; Start 05/12/16 at 23:45 Glucose (Glutose) 15 gm Q15M PRN BUCCAL DECREASED GLUCOSE; Start 05/12/16 at 23 :45 Gentamicin Sulfate (Gentamicin Iv Per Pharmacy) GENTAMICIN PER PHARMACY NOTE XX ; Start 05/13/16 at 18:00 RTUE GTZ MD May 15, 2016 08:19
--- NOTE | 2016-05-15 08:49 | PN ---
Date/Time of Note Date/Time of Note DATE: 05/15/16 TIME: 08:45 Assessment/Plan VTE Prophylaxis VTE Prophylaxis Intervention: ambulation, anti-embolic stocking VTE Contraindication Reason: bleeding Lines/Catheters IV Catheter Type (from Nrsg): Peripheral IV Central line still needed: No Urinary Cath still in place: No Reason Cath still needed: urinary retention Assessment/Plan Assessment/Plan 1. Pulmonarty edema with respiratory failure; Improved after HD. 2.. Leukocytosis 18k came down to 13K. 3. Chest pain-s/p 2 angiographies and stenting-cardiology consult. 4. End-stage renal disease-on HD 5. Anxiety, depression with dissatisfaction 6. Diabetes type 2-better controlled 7. Osteoarthritis. 8. Anemia of chronic disease-H/H stable. 9. Status post multiple units of packed red blood cell transfusions. 10. Weight loss-more than 50lb in 8 months. 11. Hypertension-out of control during respiratory distress. 12. Memory impairment. 13. Major depression. 14. Back pain. 15. Benign prostatic hypertrophy. 16. S/P left forearm a/v shunt placement for dialysis-functions well , not mature yet. 17. S/P right Jugular vein cannulation for dialysis-no signs of infection. 18. Hypoxemia with hypercapnia on home 02 and BIPAP. 19. Anxiety; borderline personality; 20. Excessive thirst. 21. Constipation Cont'd Hospitalization Reason: unstable. Subjective 24 Hr Interval Summary Free Text/Dictation I can't breath without mask. Subjective hx not possible: pt critical Constitutional: diaphoresis, disoriented, poor po, requiring O2, No chills, No febrile, No improved, No no complaints, No other, No requiring IVF Eyes: visual change, No discharge, No no complaints, No other, No pain, No redness ENT: congestion, dysphagia, No bleeding, No discharge, No no complaints, No other, No pain, No sore throat Respiratory: cough, shortness of breath, No no complaints, No other, No pain, No pleuritic pain, No sputum, No wheezing Cardiovascular: chest pain, lightheadedness, orthopenea, paroxysmal nocturnal dyspnea, No edema, No no complaints, No other, No palpitations Gastrointestinal: constipation, passing stool, No blood, No decreased appetite, No diarrhea, No flatus, No nausea, No no complaints, No other, No pain, No vomiting Neurologic: dizziness, No confusion, No focal-weakness, No headache, No no complaints, No other, No seizure, No syncope Lymphatic: No adenopathy, No lymphadema, No no complaints, No other, No tender nodes Psychological: anxiety, depression, No confusion, No nl mood/affect, No no complaints, No other, No suicidal Exam/Review of Systems Vital Signs Vitals Vital Signs Date Time Temp Pulse Resp B/P Pulse Ox O2 Delivery O2 Flow Rate FiO2 05/15/16 08:11 101 20 97 40 05/15/16 07:10 98.1 141/58 05/12/16 16:25 BIPAP 05/12/16 16:22 15.0 Intake and Output 05/14/16 05/14/16 05/15/16 15:00 23:00 07:00 Intake Total 600 ml 200 ml 150 ml Output Total 4100 ml 0 ml Balance -3500 ml 200 ml 150 ml Exam Constitutional: alert, frail, oriented, No distress, No non-verbal, No obese, No other, No well developed Psych: anxiety, depression, No confusion, No nl mood/affect, No no complaints, No other, No suicidal Head: atraumatic, normocephalic, No hematomas, No lacerations, No other Eyes: EOMI, PERRL (on facial mask of BIPAP.), nl lids ENMT: nl external ears & nose, nl nasal mucosa & septum, No intubated, No mucosa pink and moist, No nl lips & teeth, No other, No tympanic membranes Neck: bruits, jvd, nuchal rigidity, No masses, No non-tender, No other, No supple, No thyromegaly Respiratory: clear to auscultation, congested cough, diminished breath sounds, labored breathing, normal air movement, No crackles/rales, No intercostal retraction, No other, No respirations, No tactile fremitus, No wheezing Cardiovascular: jugular venous distention (JVD), nl pulses, regular rate and rhythm, systolic murmur, No S3, No S4, No bruits, No diastolic murmur, No edema, No gallop, No irregular rhythm, No murmurs/extra sounds, No other, No rub Gastrointestinal: bowel sounds, distended, nl liver, spleen, soft, No ascites, No firm, No hepatomegaly, No mass, No non-tender, No other, No rebound or guarding, No splenomegaly, No surgical scars, No tender Genitourinary - Male: nl penis, nl scrotum, No CVA tenderness, No discharge, No other Musculoskeletal: joint tenderness, muscle tone, muscle weakness, No nl extremities to inspection, No nl gait and stance, No other, No range of motion, No spine non-tender, No swelling Extremities: cyanosis, No calf tenderness, No clubbing, No edema, No normal pulses, No other, No palpable cord, No pitting pedal edema, No tenderness Neurological: FALSEWORK BUILDER II-XII intact (hearing impairment,), No DTR's symmetric, No confused, No focal weakness, No lethargic, No nl mental status, No nl speech, No nl strength, No numbness, No other, No reflexes , No unresponsive Skin: No diaphoresis, No ecchymosis, No laceration, No nl turgor, No other, No puncture, No rash or lesions Results Result Diagram: 05/15/16 0550 05/15/16 0550 Results 24 hrs Laboratory Tests Test 05/14/16 11:06 05/14/16 17:27 05/14/16 20:46 05/15/16 05:50 Bedside Glucose 108 87 84 Anion Gap 22 H Basophils # 0.1 Basophils % 0.4 Blood Morphology Comment Blood Urea Nitrogen 45 #H Calcium Level 8.9 Carbon Dioxide Level 25 Chloride Level 97 Creatinine 5.88 H Eosinophils # 0.1 Eosinophils % 0.5 Glucose Level 79 Hematocrit 31.0 L Hemoglobin 10.2 L Lymphocytes # 2.0 Lymphocytes % 14.2 L Mean Corpuscular Hemoglobin 29.3 Mean Corpuscular Hemoglobin Concent 32.9 Mean Corpuscular Volume 89.3 Mean Platelet Volume 7.0 L Monocytes # 1.1 H Monocytes % 8.2 Neutrophils # 10.6 H Neutrophils % 76.7 Nucleated Red Blood Cells # 0.0 Nucleated Red Blood Cells % 0.0 Platelet Count 378 Potassium Level 4.1 Red Blood Count 3.47 L Red Cell Distribution Width 16.4 H Sodium Level 140 White Blood Count 13.9 H Test 05/15/16 07:53 Bedside Glucose 80 Medications Medications Current Medications Ondansetron HCl (Zofran Tab) 4 mg Q6H PRN PO NAUSEA AND/OR VOMITING; Start at 14:30 Docusate Sodium (Colace) 100 mg Q12H PRN PO CONSTIPATION; Start 05/12/16 at 14: 30 Magnesium Hydroxide (Milk Of Mag) 30 ml DAILY PRN PO CONSTIPATION; Start at 14:30 Zolpidem Tartrate (Ambien) 5 mg QHS PRN PO SLEEP; Start 05/12/16 at 14:30 Heparin Sodium (Porcine) (Heparin (5000 Units/0.5 ml)) 5,000 unit Q12 SC Last administered on 05/13/16 23:01; Admin Dose 5,000 UNIT; Start 05/12/16 at 21:00 Acetaminophen (Tylenol Tab) 650 mg Q6H PRN PO PAIN AND OR ELEVATED TEMP; Start 05/13/16 at 00:00 Carvedilol (Coreg) 12.5 mg BID PO Last administered on 05/13/16 22:28; Admin Dose 12.5 MG; Start 05/13/16 at 09:00 Clonidine (Catapres) 0.1 mg TID PO Last administered on 05/13/16 10:03; Admin Dose 0.1 MG; Start 05/13/16 at 09:00 Clopidogrel Bisulfate (plaVIX) 75 mg DAILY PO Last administered on 05/13/16 10: 03; Admin Dose 75 MG; Start 05/13/16 at 09:00 Epoetin Jordon (Epogen (Esrd)) 10,000 units MoWeFr@17 SC Last administered on 05/13 22:57; Admin Dose 10,000 UNITS; Start 05/13/16 at 17:00 Levalbuterol (Xopenex Hfa) 2 puff Q4H PRN INH WHEEZING AND SOB; Start 05/13/16 at 00:00 Minoxidil (Loniten) 5 mg BID PO ; Start 05/13/16 at 09:00 Nifedipine (Procardia Xl) 30 mg BID PO Last administered on 05/13/16 10:02; Admin Dose 30 MG; Start 05/13/16 at 09:00 Pantoprazole (Protonix Tab) 40 mg DAILY@06 PO Last administered on 05/14/16 06: 38; Admin Dose 40 MG; Start 05/13/16 at 06:00 Salmeterol Xinafoate/ Fluticasone (Advair 500/50 Diskus) 1 inh BID INH Last administered on 05/14/16 22:40; Admin Dose 1 INH; Start 05/13/16 at 09:00 Senna (Senokot) 1 tab DAILY PRN PO CONSTIPATION; Start 05/13/16 at 00:00 Tamsulosin HCl (Flomax) 0.4 mg HS PO Last administered on 05/14/16 21:01; Admin Dose 0.4 MG; Start 05/13/16 at 21:00 Tiotropium [place] (Spiriva) 1 inh BID INH Last administered on 05/14/16 22:40 ; Admin Dose 1 INH; Start 05/13/16 at 09:00 Valsartan (Diovan) 320 mg DAILY PO Last administered on 05/13/16 10:02; Admin Dose 320 MG; Start 05/13/16 at 09:00 Diagnostic Test (Pha) (Accucheck) 1 ea 02 XX Last administered on 05/13/16 02: 02; Admin Dose 1 EA; Start 05/13/16 at 02:00 Miscellaneous Information 1 ea NOTE XX ; Start 05/12/16 at 23:45 Glucose (Glutose) 15 gm Q15M PRN PO DECREASED GLUCOSE; Start 05/12/16 at 23:45 Glucose (Glutose) 22.5 gm Q15M PRN PO DECREASED GLUCOSE; Start 05/12/16 at 23: 45 Dextrose (D50w Syringe) 25 ml Q15M PRN IV DECREASED GLUCOSE; Start 05/12/16 at 23:45 Dextrose (D50w Syringe) 50 ml Q15M PRN IV DECREASED GLUCOSE; Start 05/12/16 at 23:45 Glucagon (Glucagen) 1 mg Q15M PRN IM DECREASED GLUCOSE; Start 05/12/16 at 23:45 Glucose (Glutose) 15 gm Q15M PRN BUCCAL DECREASED GLUCOSE; Start 05/12/16 at 23 :45 Gentamicin Sulfate (Gentamicin Iv Per Pharmacy) GENTAMICIN PER PHARMACY NOTE XX ; Start 05/13/16 at 18:00 Multivit/Ca Carb/ B Cmplx/FA/Prenat (Katlyn-Michael) 1 tab DAILY PO ; Start 05/15/16 at 09:00 HINA CASTILLO MD May 15, 2016 08:49
[2016-05-15] MEDS: CLOPIDOGREL 75 MG TAB PO SCH (09:00)
[2016-05-15] MEDS: SALMETEROL/FLUTICASONE 500/50 INHA INH SCH ×2 (09:00→20:12)
[2016-05-15] MEDS: VALSARTAN 160 MG TAB PO SCH (09:00)
[2016-05-15] MEDS: MINOXIDIL 2.5 MG TAB PO SCH ×2 (09:00→20:26)
[2016-05-15] MEDS: HEPARIN 5,000 UNIT/0.5 ML SYG SC SCH ×2 (09:00→20:27)
[2016-05-15] MEDS: NIFEdipine (XL) 30 MG TAB PO SCH ×2 (09:00→20:27)
[2016-05-15] MEDS: TIOTROPIUM 18 MCG CAPSULE INHA DEV INH SCH ×2 (09:00→20:15)
[2016-05-15] MEDS: MULTIVIT/CA CARB/B CMPLX/FA TAB PO SCH (09:00)
[2016-05-15] MEDS: LEVOTHYROXINE 125 MCG TAB PO SCH (09:37)
[2016-05-15] MEDS: PANTOPRAZOLE (EC) 40 MG TAB PO SCH (09:37)
--- NOTE | 2016-05-15 11:15 | CONS ---
Date/Time of Note Date/Time of Note DATE: 05/15/16 TIME: 11:15 Assessment/Plan Assessment/Plan Chief Complaint/Hosp Course Anemia - CHRONIC, MULTIFACTORIAL WITH COMPONENT ACD AND IRON DEFICIENCY CONT TO MONITOR BLOOD COUNT CLOSELY OBSERVE FOR BLEEDING AND HEMOLYSIS TRANSFUSE NEEDED EPO WITH HD Acute respiratory failure. Pneumonia with sputum culture growing Branhamella catarrhalis/PSA. End-stage renal disease, hemodialysis dependent. Right chest Perm-A-Cath. Chronic obstructive pulmonary disease exacerbation. Problems: Consultation Date/Type/Reason Admit Date/Time May 12, 2016 at 09:46 Initial Consult Date 05.12.16 Type of Consultation: HEMEONC Reason for Consultation ANEMIA Referring Provider: HINA CASTILLO MD 24 HR Interval Summary Free Text/Dictation ALL NOTED NO NEW EVENTS NO BLEEDING VERY WEAK Exam/Review of Systems Vital Signs Vitals Vital Signs Date Time Temp Pulse Resp B/P Pulse Ox O2 Delivery O2 Flow Rate FiO2 05/15/16 11:14 98.2 111 22 138/66 94 05/15/16 09:44 40 05/12/16 16:25 BIPAP 05/12/16 16:22 15.0 Intake and Output 05/14/16 05/14/16 05/15/16 15:00 23:00 07:00 Intake Total 600 ml 200 ml 150 ml Output Total 4100 ml 0 ml Balance -3500 ml 200 ml 150 ml Exam Constitutional: alert, frail, No well developed Psych: anxiety, depression, no complaints Head: normocephalic Eyes: nl conjunctiva ENMT: nl external ears & nose Neck: jvd, supple Respiratory: congested cough Cardiovascular: other, regular rate and rhythm, systolic murmur, No edema Gastrointestinal: nl liver, spleen, soft Musculoskeletal: nl extremities to inspection Results Result Diagram: 05/15/16 0550 05/15/16 0550 Results 24 hrs Laboratory Tests Test 05/14/16 17:27 05/14/16 20:46 05/15/16 05:50 05/15/16 07:53 Bedside Glucose 87 84 80 Anion Gap 22 H Basophils # 0.1 Basophils % 0.4 Blood Morphology Comment Blood Urea Nitrogen 45 #H Calcium Level 8.9 Carbon Dioxide Level 25 Chloride Level 97 Creatinine 5.88 H Eosinophils # 0.1 Eosinophils % 0.5 Glucose Level 79 Hematocrit 31.0 L Hemoglobin 10.2 L Lymphocytes # 2.0 Lymphocytes % 14.2 L Mean Corpuscular Hemoglobin 29.3 Mean Corpuscular Hemoglobin Concent 32.9 Mean Corpuscular Volume 89.3 Mean Platelet Volume 7.0 L Monocytes # 1.1 H Monocytes % 8.2 Neutrophils # 10.6 H Neutrophils % 76.7 Nucleated Red Blood Cells # 0.0 Nucleated Red Blood Cells % 0.0 Platelet Count 378 Potassium Level 4.1 Red Blood Count 3.47 L Red Cell Distribution Width 16.4 H Sodium Level 140 White Blood Count 13.9 H Medications Medications Current Medications Ondansetron HCl (Zofran Tab) 4 mg Q6H PRN PO NAUSEA AND/OR VOMITING; Start at 14:30 Docusate Sodium (Colace) 100 mg Q12H PRN PO CONSTIPATION; Start 05/12/16 at 14: 30 Magnesium Hydroxide (Milk Of Mag) 30 ml DAILY PRN PO CONSTIPATION; Start at 14:30 Zolpidem Tartrate (Ambien) 5 mg QHS PRN PO SLEEP; Start 05/12/16 at 14:30 Heparin Sodium (Porcine) (Heparin (5000 Units/0.5 ml)) 5,000 unit Q12 SC Last administered on 05/13/16 23:01; Admin Dose 5,000 UNIT; Start 05/12/16 at 21:00 Acetaminophen (Tylenol Tab) 650 mg Q6H PRN PO PAIN AND OR ELEVATED TEMP; Start 05/13/16 at 00:00 Carvedilol (Coreg) 12.5 mg BID PO Last administered on 05/13/16 22:28; Admin Dose 12.5 MG; Start 05/13/16 at 09:00 Clonidine (Catapres) 0.1 mg TID PO Last administered on 05/13/16 10:03; Admin Dose 0.1 MG; Start 05/13/16 at 09:00 Clopidogrel Bisulfate (plaVIX) 75 mg DAILY PO Last administered on 05/13/16 10: 03; Admin Dose 75 MG; Start 05/13/16 at 09:00 Epoetin Jordon (Epogen (Esrd)) 10,000 units MoWeFr@17 SC Last administered on 05/13 22:57; Admin Dose 10,000 UNITS; Start 05/13/16 at 17:00 Levalbuterol (Xopenex Hfa) 2 puff Q4H PRN INH WHEEZING AND SOB; Start 05/13/16 at 00:00 Minoxidil (Loniten) 5 mg BID PO ; Start 05/13/16 at 09:00 Nifedipine (Procardia Xl) 30 mg BID PO Last administered on 05/13/16 10:02; Admin Dose 30 MG; Start 05/13/16 at 09:00 Pantoprazole (Protonix Tab) 40 mg DAILY@06 PO Last administered on 05/15/16 09: 37; Admin Dose 40 MG; Start 05/13/16 at 06:00 Salmeterol Xinafoate/ Fluticasone (Advair 500/50 Diskus) 1 inh BID INH Last administered on 05/14/16 22:40; Admin Dose 1 INH; Start 05/13/16 at 09:00 Senna (Senokot) 1 tab DAILY PRN PO CONSTIPATION; Start 05/13/16 at 00:00 Tamsulosin HCl (Flomax) 0.4 mg HS PO Last administered on 05/14/16 21:01; Admin Dose 0.4 MG; Start 05/13/16 at 21:00 Tiotropium [place] (Spiriva) 1 inh BID INH Last administered on 05/14/16 22:40 ; Admin Dose 1 INH; Start 05/13/16 at 09:00 Valsartan (Diovan) 320 mg DAILY PO Last administered on 05/13/16 10:02; Admin Dose 320 MG; Start 05/13/16 at 09:00 Diagnostic Test (Pha) (Accucheck) 1 ea 02 XX Last administered on 05/13/16 02: 02; Admin Dose 1 EA; Start 05/13/16 at 02:00 Miscellaneous Information 1 ea NOTE XX ; Start 05/12/16 at 23:45 Glucose (Glutose) 15 gm Q15M PRN PO DECREASED GLUCOSE; Start 05/12/16 at 23:45 Glucose (Glutose) 22.5 gm Q15M PRN PO DECREASED GLUCOSE; Start 05/12/16 at 23: 45 Dextrose (D50w Syringe) 25 ml Q15M PRN IV DECREASED GLUCOSE; Start 05/12/16 at 23:45 Dextrose (D50w Syringe) 50 ml Q15M PRN IV DECREASED GLUCOSE; Start 05/12/16 at 23:45 Glucagon (Glucagen) 1 mg Q15M PRN IM DECREASED GLUCOSE; Start 05/12/16 at 23:45 Glucose (Glutose) 15 gm Q15M PRN BUCCAL DECREASED GLUCOSE; Start 05/12/16 at 23 :45 Gentamicin Sulfate (Gentamicin Iv Per Pharmacy) GENTAMICIN PER PHARMACY NOTE XX ; Start 05/13/16 at 18:00 Multivit/Ca Carb/ B Cmplx/FA/Prenat (Katlyn-Michael) 1 tab DAILY PO ; Start 05/15/16 at 09:00 ANDRE SMITH MD May 15, 2016 11:15
[2016-05-15] MEDS: CALCIUM ACETATE 667 MG CAP PO SCH ×2 (11:42→17:09)
[2016-05-15] MEDS: CEFEPIME 1GM/50 ML (PMX) 50 ML IVPB SCH (16:35)
[2016-05-15] MEDS: EPOETIN 10000 UNITS/1 ML INJ (ESRD) SC SCH (16:40)
--- NOTE | 2016-05-15 18:00 | PN ---
DATE: 05/15/2016 SUBJECTIVE: The patient is doing better today. He is awake, comfortable on nasal cannula. No feve rs. WBC decreased to 13.9, no shift. MICROBIOLOGY: Sputum culture growing Branhamella catarrhalis. ANTIMICROBIALS: The patient is on vancomycin and gentamicin. OBJECTIVE: GENERAL: This is a well-developed, fragile, elderly man who is in no distress. HEENT: Head atraumatic, normocephalic. Sclerae anicteric. Buccal mucosa dry. NECK: Supple, trachea midline. CHEST: Rise symmetrical. Breath sounds diminished to bases. HEART: S1, S2. ABDOMEN: Soft, bowel tones present. EXTREMITIES: Without cyanosis. ASSESSMENT: 1. Acute respiratory failure. 2. Pneumonia with sputum culture growing Branhamella catarrhalis. 3. End-stage renal disease, hemodialysis dependent. 4. Right chest Perm-A-Cath. 5. Anemia. 6. Chronic obstructive pulmonary disease exacerbation. PLAN: The patient remains stable. We are going to change gentamicin to cefepime daily. Continue v ancomycin for now. Await for repeat blood cultures. Dictated By: TRISH CUELLO ROOFER VINYL COATING for BRENNA PALACIOS MD NI/NTS Conf#: [id number] DID#: [id number]
[2016-05-15] MEDS: TAMSULOSIN (SR) 0.4 MG CAP PO SCH (20:12)
[2016-05-16] VITALS (28 sets, daily range): BP systolic 106–149; BP diastolic 44–87; PULSE 73–170; RESP 17–20
[2016-05-16] MEDS: IPRATROPIUM (NEB) 0.5 MG/2.5 ML AMP NEB SCH ×4 (01:02→20:05)
[2016-05-16] MEDS: ALBUTEROL 0.5% (NEB) 2.5 MG/0.5 ML AMP NEB SCH ×4 (01:02→20:05)
[2016-05-16] MEDS: ACCUCHECK XX SCH (02:00)
[2016-05-16 07:40] LABS: POTASSIUM 4.2 mmol/L (3.5-5.1)
[2016-05-16] MEDS: VALSARTAN 160 MG TAB PO SCH (07:40)
[2016-05-16] MEDS: MINOXIDIL 2.5 MG TAB PO SCH ×2 (07:41→21:00)
[2016-05-16] MEDS: NIFEdipine (XL) 30 MG TAB PO SCH ×2 (07:41→21:20)
[2016-05-16] MEDS: HEPARIN 5,000 UNIT/0.5 ML SYG SC SCH ×2 (07:41→21:28)
[2016-05-16] MEDS: CLOPIDOGREL 75 MG TAB PO SCH (07:42)
[2016-05-16 07:43] LABS: CREATININE 7.18 mg/dl (0.61-1.24)
[2016-05-16 07:44] LABS: CALCIUM 8.7 mg/dl (8.4-10.2)
[2016-05-16] MEDS: INSULIN ASPART [NOVOLOG] 3 ML PEN SC SCH ×4 (07:52→20:32)
[2016-05-16] MEDS: LEVOTHYROXINE 125 MCG TAB PO SCH (08:31)
[2016-05-16] MEDS: PANTOPRAZOLE (EC) 40 MG TAB PO SCH (08:31)
[2016-05-16] MEDS: CALCIUM ACETATE 667 MG CAP PO SCH ×3 (08:31→17:16)
[2016-05-16] MEDS: SALMETEROL/FLUTICASONE 500/50 INHA INH SCH ×2 (08:32→20:34)
[2016-05-16] MEDS: TIOTROPIUM 18 MCG CAPSULE INHA DEV INH SCH ×2 (09:02→21:19)
[2016-05-16 09:06] LABS: HEMATOCRIT 33.1 % (42.0-52.0); HEMOGLOBIN 10.3 g/dl (14.0-18.0); MEAN CORPUSCULAR VOLUME 92.5 fl (82.0-101.0); RED BLOOD COUNT 3.58 10^6/ul (4.70-6.10); UNCORRECTED WBC 13.7 10^3/ul (4.8-10.8); WHITE BLOOD COUNT 13.7 10^3/ul (4.8-10.8)
[2016-05-16 09:07] LABS: BASOPHIL # 0.1 10^3/ul (0.0-0.1); BASOPHILS % 0.4 % (0.0-2.0); EOSINOPHILS # 0.1 10^3/ul (0.0-0.5); LYMPHOCYTES # 2.4 10^3/ul (0.8-2.9); LYMPHOCYTES % 17.2 % (15.0-51.0); MEAN CORPUSCULAR HEMOGLOBIN 28.8 pg (29.0-33.0); MEAN CORPUSCULAR HGB CONC 31.1 g/dl (32.0-37.0); MEAN PLATELET VOLUME 9.4 fl (7.4-10.4); MONOCYTE # 0.9 10^3/ul (0.3-0.9); MONOCYTES % 6.2 % (0.0-11.0); NEUTROPHIL # 9.7 10^3/ul (1.6-7.5); NEUTROPHILS % 70.4 % (39.0-77.0); PLATELET COUNT 420 10^3/UL (140-440); RED CELL DISTRIBUTION WIDTH 14.3 % (11.5-14.5)
--- NOTE | 2016-05-16 09:20 | CONS ---
Date/Time of Note Date/Time of Note DATE: 05/16/16 TIME: 09:15 Assessment/Plan Assessment/Plan Problems: (1) ESRD (end stage renal disease) on dialysis Comment: for HD today (2) Pneumonia Comment: on abx... improving... 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 Exam/Review of Systems Vital Signs Vitals Vital Signs Date Time Temp Pulse Resp B/P Pulse Ox O2 Delivery O2 Flow Rate FiO2 05/16/16 08:39 107 20 93 Nasal Cannula 3.0 32 05/16/16 07:32 97.3 142/66 Intake and Output 05/15/16 05/15/16 05/16/16 15:00 23:00 07:00 Intake Total 480 ml 150 ml Output Total 0 ml Balance 480 ml 150 ml Exam Constitutional: alert Neck: supple Cardiovascular: regular rate and rhythm (no edema) Results Result Diagram: 05/16/16 0618 05/16/16 0618 Results 24 hrs Laboratory Tests Test 05/15/16 11:34 05/15/16 17:02 05/15/16 20:11 05/16/16 06:18 Bedside Glucose 146 118 149 Anion Gap 19 H Basophils # 0.1 Basophils % 0.4 Blood Urea Nitrogen 66 H Calcium Level 8.7 Carbon Dioxide Level 28 Chloride Level 95 L Creatinine 7.18 H Eosinophils # 0.1 Eosinophils % 1.0 Glucose Level 125 # Hematocrit 33.1 L Hemoglobin 10.3 L Lymphocytes # 2.4 Lymphocytes % 17.2 Mean Corpuscular Hemoglobin 28.8 L Mean Corpuscular Hemoglobin Concent 31.1 L Mean Corpuscular Volume 92.5 Mean Platelet Volume 9.4 # Monocytes # 0.9 Monocytes % 6.2 Neutrophils # 9.7 H Neutrophils % 70.4 Nucleated Red Blood Cells # 0.0 Nucleated Red Blood Cells % 0.0 Platelet Count 420 Potassium Level 4.2 Red Blood Count 3.58 L Red Cell Distribution Width 14.3 Sodium Level 138 White Blood Count 13.7 H Test 05/16/16 07:48 Bedside Glucose 148 Medications Medications Current Medications Ondansetron HCl (Zofran Tab) 4 mg Q6H PRN PO NAUSEA AND/OR VOMITING; Start at 14:30 Docusate Sodium (Colace) 100 mg Q12H PRN PO CONSTIPATION; Start 05/12/16 at 14: 30 Magnesium Hydroxide (Milk Of Mag) 30 ml DAILY PRN PO CONSTIPATION; Start at 14:30 Zolpidem Tartrate (Ambien) 5 mg QHS PRN PO SLEEP; Start 05/12/16 at 14:30 Heparin Sodium (Porcine) (Heparin (5000 Units/0.5 ml)) 5,000 unit Q12 SC Last administered on 05/13/16 23:01; Admin Dose 5,000 UNIT; Start 05/12/16 at 21:00 Acetaminophen (Tylenol Tab) 650 mg Q6H PRN PO PAIN AND OR ELEVATED TEMP; Start 05/13/16 at 00:00 Carvedilol (Coreg) 12.5 mg BID PO Last administered on 05/13/16 22:28; Admin Dose 12.5 MG; Start 05/13/16 at 09:00 Clonidine (Catapres) 0.1 mg TID PO Last administered on 05/13/16 10:03; Admin Dose 0.1 MG; Start 05/13/16 at 09:00 Clopidogrel Bisulfate (plaVIX) 75 mg DAILY PO Last administered on 05/13/16 10: 03; Admin Dose 75 MG; Start 05/13/16 at 09:00 Epoetin Jordon (Epogen (Esrd)) 10,000 units MoWeFr@17 SC Last administered on 05/15 16:40; Admin Dose 10,000 UNITS; Start 05/13/16 at 17:00 Levalbuterol (Xopenex Hfa) 2 puff Q4H PRN INH WHEEZING AND SOB; Start 05/13/16 at 00:00 Minoxidil (Loniten) 5 mg BID PO ; Start 05/13/16 at 09:00 Nifedipine (Procardia Xl) 30 mg BID PO Last administered on 05/13/16 10:02; Admin Dose 30 MG; Start 05/13/16 at 09:00 Pantoprazole (Protonix Tab) 40 mg DAILY@06 PO Last administered on 05/16/16 08: 31; Admin Dose 40 MG; Start 05/13/16 at 06:00 Salmeterol Xinafoate/ Fluticasone (Advair 500/50 Diskus) 1 inh BID INH Last administered on 05/16/16 08:32; Admin Dose 1 INH; Start 05/13/16 at 09:00 Senna (Senokot) 1 tab DAILY PRN PO CONSTIPATION; Start 05/13/16 at 00:00 Tamsulosin HCl (Flomax) 0.4 mg HS PO Last administered on 05/15/16 20:12; Admin Dose 0.4 MG; Start 05/13/16 at 21:00 Tiotropium [place] (Spiriva) 1 inh BID INH Last administered on 05/16/16 09:02 ; Admin Dose 1 INH; Start 05/13/16 at 09:00 Valsartan (Diovan) 320 mg DAILY PO Last administered on 05/13/16 10:02; Admin Dose 320 MG; Start 05/13/16 at 09:00 Diagnostic Test (Pha) (Accucheck) 1 ea 02 XX Last administered on 05/13/16 02: 02; Admin Dose 1 EA; Start 05/13/16 at 02:00 Miscellaneous Information 1 ea NOTE XX ; Start 05/12/16 at 23:45 Glucose (Glutose) 15 gm Q15M PRN PO DECREASED GLUCOSE; Start 05/12/16 at 23:45 Glucose (Glutose) 22.5 gm Q15M PRN PO DECREASED GLUCOSE; Start 05/12/16 at 23: 45 Dextrose (D50w Syringe) 25 ml Q15M PRN IV DECREASED GLUCOSE; Start 05/12/16 at 23:45 Dextrose (D50w Syringe) 50 ml Q15M PRN IV DECREASED GLUCOSE; Start 05/12/16 at 23:45 Glucagon (Glucagen) 1 mg Q15M PRN IM DECREASED GLUCOSE; Start 05/12/16 at 23:45 Glucose (Glutose) 15 gm Q15M PRN BUCCAL DECREASED GLUCOSE; Start 05/12/16 at 23 :45 Multivit/Ca Carb/ B Cmplx/FA/Prenat 1 tab 1 tab DAILY PO ; Start 05/15/16 at 09: 00 Cefepime HCl (Maxipime 1gm/50 ml (Pmx)) 50 ml @ 100 mls/hr Q24H IVPB Last administered on 05/15/16t 16:35; Admin Dose 100 MLS/HR; Start 05/15/16 at 16:00 ELENO MIR MD May 16, 2016 09:20
[2016-05-16 12:49] LABS: ADD UMIC YES; URINE BILIRUBIN (Dip) NEGATIVE (NEGATIVE); URINE BLOOD (Dip) 3+ (NEGATIVE); URINE COLOR LT. YELLOW (YELLOW); URINE GLUCOSE (Dip) NEGATIVE (NEGATIVE); URINE KETONES (Dip) NEGATIVE (NEGATIVE); URINE LEUKOCYTE ESTERASE (Dip) NEGATIVE (NEGATIVE); URINE NITRITE (Dip) NEGATIVE (NEGATIVE); URINE TOTAL PROTEIN (Dip) 4+ (NEGATIVE); URINE UROBILINOGEN (Dip) 0.2 E.U./dL (0.1-1.0)
[2016-05-16 13:17] LABS: URINE RBCS 25-50 /HPF (0)
[2016-05-16] MEDS: MULTIVIT/CA CARB/B CMPLX/FA TAB PO SCH (14:17)
[2016-05-16] MEDS: CEFEPIME 1GM/50 ML (PMX) 50 ML IVPB SCH (16:17)
--- NOTE | 2016-05-16 16:22 | CONS ---
Date/Time of Note Date/Time of Note DATE: 05/16/16 TIME: 16:19 Assessment/Plan Assessment/Plan Additional Assessment/Plan # CHF Diastolic # NS-VT # CAD -stable, recent angio with patent stent # HTN # Hypotension during HD # Cough # ESRD on HD >> continue on current meds >> K Mg >> Adjust coreg if possible >> HD per nephrology >> keep on tele Consultation Date/Type/Reason Admit Date/Time May 12, 2016 at 09:46 Type of Consultation: Cardiology Hx of Present Illness Asked to see pt in consultation due to NSVT. He has no CP except after HD. He has not been in to see me in the office and is in and out of [facility]. Constitutional: diaphoresis, disoriented, poor po, requiring O2, No chills, No febrile, No improved, No no complaints, No other, No requiring IVF Eyes: visual change, No discharge, No no complaints, No other, No pain, No redness ENT: congestion, dysphagia, No bleeding, No discharge, No no complaints, No other, No pain, No sore throat Respiratory: cough, shortness of breath, No no complaints, No other, No pain, No pleuritic pain, No sputum, No wheezing Cardiovascular: chest pain, lightheadedness, orthopenea, paroxysmal nocturnal dyspnea, No edema, No no complaints, No other, No palpitations Gastrointestinal: constipation, passing stool, No blood, No decreased appetite, No diarrhea, No flatus, No nausea, No no complaints, No other, No pain, No vomiting Genitourinary: No dysuria Musculoskeletal: back pain, bone/joint pain, neck pain, No no complaints, No other, No restricted range of motion, No swelling Skin: bruising, pruritis, rash Neurologic: dizziness, No confusion, No focal-weakness, No headache, No no complaints, No other, No seizure, No syncope Endocrine: No dry skin, No no complaints, No other, No polydypsia, No polyuria , No temp intolerance Lymphatic: No adenopathy, No lymphadema, No no complaints, No other, No tender nodes Psychological: anxiety, depression, No confusion, No nl mood/affect, No no complaints, No other, No suicidal Immunologic: pruritis, No immunodeficiency, No no complaints, No other, No rhinitis, No urticaria Past Medical History Medical History: angina, congestive heart failure, coronary artery disease, diabetes, GERD, high cholesterol, hypertension, renal disease, urinary tract infection Past Surgical History Past Surgical Hx: angioplasty, coronary bypass surgery, endoscopy, other Social History Alcohol Use: rarely Smoking Status: Former smoker Drug Use: none Exam/Review of Systems Vital Signs Vitals Vital Signs Date Time Temp Pulse Resp B/P Pulse Ox O2 Delivery O2 Flow Rate FiO2 05/16/16 15:03 98.2 75 20 129/64 98 05/16/16 14:52 Nasal Cannula 4.0 05/16/16 14:48 32 Intake and Output 05/15/16 05/15/16 05/16/16 15:00 23:00 07:00 Intake Total 480 ml 150 ml Output Total 0 ml Balance 480 ml 150 ml Exam Constitutional: alert, frail, No well developed Psych: anxiety, depression, no complaints Head: normocephalic Eyes: nl conjunctiva ENMT: nl external ears & nose Neck: jvd, supple Respiratory: congested cough Cardiovascular: other, regular rate and rhythm, systolic murmur, No edema Gastrointestinal: nl liver, spleen, soft Musculoskeletal: nl extremities to inspection Results Result Diagram: 05/16/1618 05/16/16 0618 Results 24 hrs Laboratory Tests Test 05/15/16 17:02 05/15/16 20:11 05/16/16 06:18 05/16/16 07:48 Bedside Glucose 118 149 148 Anion Gap 19 H Basophils # 0.1 Basophils % 0.4 Blood Urea Nitrogen 66 H Calcium Level 8.7 Carbon Dioxide Level 28 Chloride Level 95 L Creatinine 7.18 H Eosinophils # 0.1 Eosinophils % 1.0 Glucose Level 125 # Hematocrit 33.1 L Hemoglobin 10.3 L Lymphocytes # 2.4 Lymphocytes % 17.2 Mean Corpuscular Hemoglobin 28.8 L Mean Corpuscular Hemoglobin Concent 31.1 L Mean Corpuscular Volume 92.5 Mean Platelet Volume 9.4 # Monocytes # 0.9 Monocytes % 6.2 Neutrophils # 9.7 H Neutrophils % 70.4 Nucleated Red Blood Cells # 0.0 Nucleated Red Blood Cells % 0.0 Platelet Count 420 Potassium Level 4.2 Red Blood Count 3.58 L Red Cell Distribution Width 14.3 Sodium Level 138 White Blood Count 13.7 H Test 05/16/16 09:25 05/16/16 11:35 Urine Bilirubin NEGATIVE Urine Clarity CLEAR Urine Color LT. YELLOW Urine Glucose NEGATIVE Urine Hemoglobin 3+ H Urine Ketones NEGATIVE Urine Leukocyte Esterase NEGATIVE Urine Microscopic RBC 25-50 Urine Microscopic WBC 2-5 Urine Nitrite NEGATIVE Urine Red Blood Cell Casts RARE Urine Specific [place] 1.015 Urine Total Protein 4+ H Urine Urobilinogen 0.2 E.U./dL Urine Waxy Casts RARE Urine Yeast MODERATE Urine pH 6.5 Bedside Glucose 136 Medications Medications Current Medications Ondansetron HCl (Zofran Tab) 4 mg Q6H PRN PO NAUSEA AND/OR VOMITING; Start at 14:30 Docusate Sodium (Colace) 100 mg Q12H PRN PO CONSTIPATION; Start 05/12/16 at 14: 30 Magnesium Hydroxide (Milk Of Mag) 30 ml DAILY PRN PO CONSTIPATION; Start at 14:30 Zolpidem Tartrate (Ambien) 5 mg QHS PRN PO SLEEP; Start 05/12/16 at 14:30 Heparin Sodium (Porcine) (Heparin (5000 Units/0.5 ml)) 5,000 unit Q12 SC Last administered on 05/13/16 23:01; Admin Dose 5,000 UNIT; Start 05/12/16 at 21:00 Acetaminophen (Tylenol Tab) 650 mg Q6H PRN PO PAIN AND OR ELEVATED TEMP; Start 05/13/16 at 00:00 Carvedilol (Coreg) 12.5 mg BID PO Last administered on 05/13/16 22:28; Admin Dose 12.5 MG; Start 05/13/16 at 09:00 Clonidine (Catapres) 0.1 mg TID PO Last administered on 05/13/16 10:03; Admin Dose 0.1 MG; Start 05/13/16 at 09:00 Clopidogrel Bisulfate (plaVIX) 75 mg DAILY PO Last administered on 05/13/16 10: 03; Admin Dose 75 MG; Start 05/13/16 at 09:00 Epoetin [place] (Epogen (Esrd)) 10,000 units MoWeFr@17 SC Last administered on 05/15 16:40; Admin Dose 10,000 UNITS; Start 05/13/16 at 17:00 Levalbuterol (Xopenex Hfa) 2 puff Q4H PRN INH WHEEZING AND SOB; Start 05/13/16 at 00:00 Minoxidil (Loniten) 5 mg BID PO ; Start 05/13/16 at 09:00 Nifedipine (Procardia Xl) 30 mg BID PO Last administered on 05/13/16 10:02; Admin Dose 30 MG; Start 05/13/16 at 09:00 Pantoprazole (Protonix Tab) 40 mg DAILY@06 PO Last administered on 05/16/16 08: 31; Admin Dose 40 MG; Start 05/13/16 at 06:00 Salmeterol Xinafoate/ Fluticasone (Advair 500/50 Diskus) 1 inh BID INH Last administered on 05/16/16 08:32; Admin Dose 1 INH; Start 05/13/16 at 09:00 Senna (Senokot) 1 tab DAILY PRN PO CONSTIPATION; Start 05/13/16 at 00:00 Tamsulosin HCl (Flomax) 0.4 mg HS PO Last administered on 05/15/16 20:12; Admin Dose 0.4 MG; Start 05/13/16 at 21:00 Tiotropium [place] (Spiriva) 1 inh BID INH Last administered on 05/16/16 09:02 ; Admin Dose 1 INH; Start 05/13/16 at 09:00 Valsartan (Diovan) 320 mg DAILY PO Last administered on 05/13/16 10:02; Admin Dose 320 MG; Start 05/13/16 at 09:00 Diagnostic Test (Pha) (Accucheck) 1 ea 02 XX Last administered on 05/13/16 02: 02; Admin Dose 1 EA; Start 05/13/16 at 02:00 Miscellaneous Information 1 ea NOTE XX ; Start 05/12/16 at 23:45 Glucose (Glutose) 15 gm Q15M PRN PO DECREASED GLUCOSE; Start 05/12/16 at 23:45 Glucose (Glutose) 22.5 gm Q15M PRN PO DECREASED GLUCOSE; Start 05/12/16 at 23: 45 Dextrose (D50w Syringe) 25 ml Q15M PRN IV DECREASED GLUCOSE; Start 05/12/16 at 23:45 Dextrose (D50w Syringe) 50 ml Q15M PRN IV DECREASED GLUCOSE; Start 05/12/16 at 23:45 Glucagon (Glucagen) 1 mg Q15M PRN IM DECREASED GLUCOSE; Start 05/12/16 at 23:45 Glucose (Glutose) 15 gm Q15M PRN BUCCAL DECREASED GLUCOSE; Start 05/12/16 at 23 :45 Multivit/Ca Carb/ B Cmplx/FA/Prenat 1 tab 1 tab DAILY PO Last administered on 14:17; Admin Dose 1 TAB; Start 05/15/16 at 09:00 Cefepime HCl (Maxipime 1gm/50 ml (Pmx)) 50 ml @ 100 mls/hr Q24H IVPB Last administered on 05/16/16 16:17; Admin Dose 100 MLS/HR; Start 05/15/16 at 16:00 Miscellaneous Information (*Rx Drug Level Order Reminder*) RANDOM VANCOMYCIN LEVEL ... ONCE ONCE XX ; Start 05/17/16 at 05:00; Stop 05/17/16 at 05:01 NIRANJAN CHRISTOPHER MD May 16, 2016 16:22
--- NOTE | 2016-05-16 19:15 | CONS ---
Date/Time of Note Date/Time of Note DATE: 05/16/16 TIME: 13:00 Assessment/Plan Assessment/Plan Chief Complaint/Hosp Course SUBJECTIVE: In HD, comfortable on nasal cannula. No fevers. MICROBIOLOGY: Sputum culture growing Branhamella catarrhalis and PSA. ANTIMICROBIALS: The patient is on vancomycin, Cefepime and gentamicin. OBJECTIVE: GENERAL: This is a well-developed, fragile, elderly man who is in no distress. HEENT: Head atraumatic, normocephalic. Sclerae anicteric. Buccal mucosa dry. NECK: Supple, trachea midline. CHEST: Rise symmetrical. Breath sounds diminished to bases. HEART: S1, S2. ABDOMEN: Soft, bowel tones present. EXTREMITIES: Without cyanosis. ASSESSMENT: 1. Acute respiratory failure. 2. Pneumonia with sputum culture growing Branhamella catarrhalis/PSA. 3. End-stage renal disease, hemodialysis dependent. 4. Right chest Perm-A-Cath. 5. Anemia. 6. Chronic obstructive pulmonary disease exacerbation. PLAN: The patient remains stable. Continue abx, dc Vancomycin==> bld cx negative DW staff Problems: Consultation Date/Type/Reason Admit Date/Time May 12, 2016 at 09:46 Initial Consult Date Type of Consultation: ID Exam/Review of Systems Vital Signs Vitals Vital Signs Date Time Temp Pulse Resp B/P Pulse Ox O2 Delivery O2 Flow Rate FiO2 05/16/16 16:22 80 05/16/16 15:03 98.2 20 129/64 98 05/16/16 14:52 Nasal Cannula 4.0 05/16/16 14:48 32 Intake and Output 05/15/16 05/15/16 05/16/16 15:00 23:00 07:00 Intake Total 480 ml 150 ml Output Total 0 ml Balance 480 ml 150 ml Results Result Diagram: 05/16/16 0618 05/16/16 0618 Results 24 hrs Laboratory Tests Test 05/15/16 20:11 05/16/16 06:18 05/16/16 07:48 05/16/16 09:25 Bedside Glucose 149 148 Anion Gap 19 H Basophils # 0.1 Basophils % 0.4 Blood Urea Nitrogen 66 H Calcium Level 8.7 Carbon Dioxide Level 28 Chloride Level 95 L Creatinine 7.18 H Eosinophils # 0.1 Eosinophils % 1.0 Glucose Level 125 # Hematocrit 33.1 L Hemoglobin 10.3 L Lymphocytes # 2.4 Lymphocytes % 17.2 Mean Corpuscular Hemoglobin 28.8 L Mean Corpuscular Hemoglobin Concent 31.1 L Mean Corpuscular Volume 92.5 Mean Platelet Volume 9.4 # Monocytes # 0.9 Monocytes % 6.2 Neutrophils # 9.7 H Neutrophils % 70.4 Nucleated Red Blood Cells # 0.0 Nucleated Red Blood Cells % 0.0 Platelet Count 420 Potassium Level 4.2 Red Blood Count 3.58 L Red Cell Distribution Width 14.3 Sodium Level 138 White Blood Count 13.7 H Urine Bilirubin NEGATIVE Urine Clarity CLEAR Urine Color LT. YELLOW Urine Glucose NEGATIVE Urine Hemoglobin 3+ H Urine Ketones NEGATIVE Urine Leukocyte Esterase NEGATIVE Urine Microscopic RBC 25-50 Urine Microscopic WBC 2-5 Urine Nitrite NEGATIVE Urine Red Blood Cell Casts RARE Urine Specific [place] 1.015 Urine Total Protein 4+ H Urine Urobilinogen 0.2 E.U./dL Urine Waxy Casts RARE Urine Yeast MODERATE Urine pH 6.5 Test 05/16/16 11:35 05/16/16 17:07 Bedside Glucose 136 170 Medications Medications Current Medications Ondansetron HCl (Zofran Tab) 4 mg Q6H PRN PO NAUSEA AND/OR VOMITING; Start at 14:30 Docusate Sodium (Colace) 100 mg Q12H PRN PO CONSTIPATION; Start 05/12/16 at 14: 30 Magnesium Hydroxide (Milk Of Mag) 30 ml DAILY PRN PO CONSTIPATION; Start at 14:30 Zolpidem Tartrate (Ambien) 5 mg QHS PRN PO SLEEP; Start 05/12/16 at 14:30 Heparin Sodium (Porcine) (Heparin (5000 Units/0.5 ml)) 5,000 unit Q12 SC Last administered on 05/13/16 23:01; Admin Dose 5,000 UNIT; Start 05/12/16 at 21:00 Acetaminophen (Tylenol Tab) 650 mg Q6H PRN PO PAIN AND OR ELEVATED TEMP; Start 05/13/16 at 00:00 Carvedilol (Coreg) 12.5 mg BID PO Last administered on 05/13/16 22:28; Admin Dose 12.5 MG; Start 05/13/16 at 09:00 Clonidine (Catapres) 0.1 mg TID PO Last administered on 05/13/16 10:03; Admin Dose 0.1 MG; Start 05/13/16 at 09:00 Clopidogrel Bisulfate (plaVIX) 75 mg DAILY PO Last administered on 05/13/16 10: 03; Admin Dose 75 MG; Start 05/13/16 at 09:00 Epoetin Jordon (Epogen (Esrd)) 10,000 units MoWeFr@17 SC Last administered on 05/15 16:40; Admin Dose 10,000 UNITS; Start 05/13/16 at 17:00 Levalbuterol (Xopenex Hfa) 2 puff Q4H PRN INH WHEEZING AND SOB; Start 05/13/16 at 00:00 Minoxidil (Loniten) 5 mg BID PO ; Start 05/13/16 at 09:00 Nifedipine (Procardia Xl) 30 mg BID PO Last administered on 05/13/16 10:02; Admin Dose 30 MG; Start 05/13/16 at 09:00 Pantoprazole (Protonix Tab) 40 mg DAILY@06 PO Last administered on 05/16/16 08: 31; Admin Dose 40 MG; Start 05/13/16 at 06:00 Salmeterol Xinafoate/ Fluticasone (Advair 500/50 Diskus) 1 inh BID INH Last administered on 05/16/16 08:32; Admin Dose 1 INH; Start 05/13/16 at 09:00 Senna (Senokot) 1 tab DAILY PRN PO CONSTIPATION; Start 05/13/16 at 00:00 Tamsulosin HCl (Flomax) 0.4 mg HS PO Last administered on 05/15/16 20:12; Admin Dose 0.4 MG; Start 05/13/16 at 21:00 Tiotropium [place] (Spiriva) 1 inh BID INH Last administered on 05/16/16 09:02 ; Admin Dose 1 INH; Start 05/13/16 at 09:00 Valsartan (Diovan) 320 mg DAILY PO Last administered on 05/13/16 10:02; Admin Dose 320 MG; Start 05/13/16 at 09:00 Diagnostic Test (Pha) (Accucheck) 1 ea 02 XX Last administered on 05/13/16 02: 02; Admin Dose 1 EA; Start 05/13/16 at 02:00 Miscellaneous Information 1 ea NOTE XX ; Start 05/12/16 at 23:45 Glucose (Glutose) 15 gm Q15M PRN PO DECREASED GLUCOSE; Start 05/12/16 at 23:45 Glucose (Glutose) 22.5 gm Q15M PRN PO DECREASED GLUCOSE; Start 05/12/16 at 23: 45 Dextrose (D50w Syringe) 25 ml Q15M PRN IV DECREASED GLUCOSE; Start 05/12/16 at 23:45 Dextrose (D50w Syringe) 50 ml Q15M PRN IV DECREASED GLUCOSE; Start 05/12/16 at 23:45 Glucagon (Glucagen) 1 mg Q15M PRN IM DECREASED GLUCOSE; Start 05/12/16 at 23:45 Glucose (Glutose) 15 gm Q15M PRN BUCCAL DECREASED GLUCOSE; Start 05/12/16 at 23 :45 Multivit/Ca Carb/ B Cmplx/FA/Prenat 1 tab 1 tab DAILY PO Last administered on 14:17; Admin Dose 1 TAB; Start 05/15/16 at 09:00 Cefepime HCl (Maxipime 1gm/50 ml (Pmx)) 50 ml @ 100 mls/hr Q24H IVPB Last administered on 05/16/16 16:17; Admin Dose 100 MLS/HR; Start 05/15/16 at 16:00 Miscellaneous Information (*Rx Drug Level Order Reminder*) RANDOM VANCOMYCIN LEVEL ... ONCE ONCE XX ; Start 05/17/16 at 05:00; Stop 05/17/16 at 05:01 TRISH CUELLO NP May 16, 2016 19:15
[2016-05-16] MEDS ORDERED: GENTAMICIN IV PER PHARMACY XX SCH (19:30)
--- NOTE | 2016-05-16 19:47 | CONS ---
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 Pneumonia with sputum culture growing Branhamella catarrhalis/PSA. End-stage renal disease, hemodialysis dependent. Right chest Perm-A-Cath. Chronic obstructive pulmonary disease exacerbation. Problems: Consultation Date/Type/Reason Admit Date/Time May 12, 2016 at 09:46 Initial Consult Date 05.12.16 Type of Consultation: HEMEONC Reason for Consultation ANEMIA Referring Provider: HINA CASTILLO MD Exam/Review of Systems Vital Signs Vitals Vital Signs Date Time Temp Pulse Resp B/P Pulse Ox O2 Delivery O2 Flow Rate FiO2 05/16/16 16:22 80 05/16/16 15:03 98.2 20 129/64 98 05/16/16 14:52 Nasal Cannula 4.0 05/16/16 14:48 32 Intake and Output 05/15/16 05/15/16 05/16/16 15:00 23:00 07:00 Intake Total 480 ml 150 ml Output Total 0 ml Balance 480 ml 150 ml Exam Constitutional: alert, frail, No well developed Psych: anxiety, depression, no complaints Head: normocephalic Eyes: nl conjunctiva ENMT: nl external ears & nose Neck: jvd, supple Respiratory: congested cough Cardiovascular: other, regular rate and rhythm, systolic murmur, No edema Gastrointestinal: nl liver, spleen, soft Musculoskeletal: nl extremities to inspection Results Result Diagram: 05/16/1618 05/16/1618 Results 24 hrs Laboratory Tests Test 05/15/16 20:11 05/16/16 06:18 05/16/16 07:48 05/16/16 09:25 Bedside Glucose 149 148 Anion Gap 19 H Basophils # 0.1 Basophils % 0.4 Blood Urea Nitrogen 66 H Calcium Level 8.7 Carbon Dioxide Level 28 Chloride Level 95 L Creatinine 7.18 H Eosinophils # 0.1 Eosinophils % 1.0 Glucose Level 125 # Hematocrit 33.1 L Hemoglobin 10.3 L Lymphocytes # 2.4 Lymphocytes % 17.2 Mean Corpuscular Hemoglobin 28.8 L Mean Corpuscular Hemoglobin Concent 31.1 L Mean Corpuscular Volume 92.5 Mean Platelet Volume 9.4 # Monocytes # 0.9 Monocytes % 6.2 Neutrophils # 9.7 H Neutrophils % 70.4 Nucleated Red Blood Cells # 0.0 Nucleated Red Blood Cells % 0.0 Platelet Count 420 Potassium Level 4.2 Red Blood Count 3.58 L Red Cell Distribution Width 14.3 Sodium Level 138 White Blood Count 13.7 H Urine Bilirubin NEGATIVE Urine Clarity CLEAR Urine Color LT. YELLOW Urine Glucose NEGATIVE Urine Hemoglobin 3+ H Urine Ketones NEGATIVE Urine Leukocyte Esterase NEGATIVE Urine Microscopic RBC 25-50 Urine Microscopic WBC 2-5 Urine Nitrite NEGATIVE Urine Red Blood Cell Casts RARE Urine Specific [place] 1.015 Urine Total Protein 4+ H Urine Urobilinogen 0.2 E.U./dL Urine Waxy Casts RARE Urine Yeast MODERATE Urine pH 6.5 Test 05/16/16 11:35 05/16/16 17:07 Bedside Glucose 136 170 Medications Medications Current Medications Ondansetron HCl (Zofran Tab) 4 mg Q6H PRN PO NAUSEA AND/OR VOMITING; Start at 14:30 Docusate Sodium (Colace) 100 mg Q12H PRN PO CONSTIPATION; Start 05/12/16 at 14: 30 Magnesium Hydroxide (Milk Of Mag) 30 ml DAILY PRN PO CONSTIPATION; Start at 14:30 Zolpidem Tartrate (Ambien) 5 mg QHS PRN PO SLEEP; Start 05/12/16 at 14:30 Heparin Sodium (Porcine) (Heparin (5000 Units/0.5 ml)) 5,000 unit Q12 SC Last administered on 05/13/16 23:01; Admin Dose 5,000 UNIT; Start 05/12/16 at 21:00 Acetaminophen (Tylenol Tab) 650 mg Q6H PRN PO PAIN AND OR ELEVATED TEMP; Start 05/13/16 at 00:00 Carvedilol (Coreg) 12.5 mg BID PO Last administered on 05/13/16 22:28; Admin Dose 12.5 MG; Start 05/13/16 at 09:00 Clonidine (Catapres) 0.1 mg TID PO Last administered on 05/13/16 10:03; Admin Dose 0.1 MG; Start 05/13/16 at 09:00 Clopidogrel Bisulfate (plaVIX) 75 mg DAILY PO Last administered on 05/13/16 10: 03; Admin Dose 75 MG; Start 05/13/16 at 09:00 Epoetin [place] (Epogen (Esrd)) 10,000 units MoWeFr@17 SC Last administered on 05/15 16:40; Admin Dose 10,000 UNITS; Start 05/13/16 at 17:00 Levalbuterol (Xopenex Hfa) 2 puff Q4H PRN INH WHEEZING AND SOB; Start 05/13/16 at 00:00 Minoxidil (Loniten) 5 mg BID PO ; Start 05/13/16 at 09:00 Nifedipine (Procardia Xl) 30 mg BID PO Last administered on 05/13/16 10:02; Admin Dose 30 MG; Start 05/13/16 at 09:00 Pantoprazole (Protonix Tab) 40 mg DAILY@06 PO Last administered on 05/16/16 08: 31; Admin Dose 40 MG; Start 05/13/16 at 06:00 Salmeterol Xinafoate/ Fluticasone (Advair 500/50 Diskus) 1 inh BID INH Last administered on 05/16/16 08:32; Admin Dose 1 INH; Start 05/13/16 at 09:00 Senna (Senokot) 1 tab DAILY PRN PO CONSTIPATION; Start 05/13/16 at 00:00 Tamsulosin HCl (Flomax) 0.4 mg HS PO Last administered on 05/15/16 20:12; Admin Dose 0.4 MG; Start 05/13/16 at 21:00 Tiotropium [place] (Spiriva) 1 inh BID INH Last administered on 05/16/16 09:02 ; Admin Dose 1 INH; Start 05/13/16 at 09:00 Valsartan (Diovan) 320 mg DAILY PO Last administered on 05/13/16 10:02; Admin Dose 320 MG; Start 05/13/16 at 09:00 Diagnostic Test (Pha) (Accucheck) 1 ea 02 XX Last administered on 05/13/16 02: 02; Admin Dose 1 EA; Start 05/13/16 at 02:00 Miscellaneous Information 1 ea NOTE XX ; Start 05/12/16 at 23:45 Glucose (Glutose) 15 gm Q15M PRN PO DECREASED GLUCOSE; Start 05/12/16 at 23:45 Glucose (Glutose) 22.5 gm Q15M PRN PO DECREASED GLUCOSE; Start 05/12/16 at 23: 45 Dextrose (D50w Syringe) 25 ml Q15M PRN IV DECREASED GLUCOSE; Start 05/12/16 at 23:45 Dextrose (D50w Syringe) 50 ml Q15M PRN IV DECREASED GLUCOSE; Start 05/12/16 at 23:45 Glucagon (Glucagen) 1 mg Q15M PRN IM DECREASED GLUCOSE; Start 05/12/16 at 23:45 Glucose (Glutose) 15 gm Q15M PRN BUCCAL DECREASED GLUCOSE; Start 05/12/16 at 23 :45 Multivit/Ca Carb/ B Cmplx/FA/Prenat 1 tab 1 tab DAILY PO Last administered on 14:17; Admin Dose 1 TAB; Start 05/15/16 at 09:00 Cefepime HCl (Maxipime 1gm/50 ml (Pmx)) 50 ml @ 100 mls/hr Q24H IVPB Last administered on 05/16/16 16:17; Admin Dose 100 MLS/HR; Start 05/15/16 at 16:00 Gentamicin Sulfate (Gentamicin Iv Per Pharmacy) GENTAMICIN PER PHARMACY NOTE XX ; Start 05/16/16 at 19:30 ANDRE SMITH MD May 16, 2016 19:47
--- NOTE | 2016-05-16 20:05 | PN ---
Date/Time of Note Date/Time of Note DATE: 05/16/16 TIME: 20:04 Assessment/Plan VTE Prophylaxis VTE Prophylaxis Intervention: ambulation, anti-embolic stocking VTE Contraindication Reason: peripheral vascular disease Lines/Catheters IV Catheter Type (from Nrsg): [place] [employer] line still needed: No Urinary Cath still in place: No Reason Cath still needed: urinary retention Assessment/Plan Assessment/Plan 1. Bilateral pneumonia with worsening of wheezing and hemoptysis with respiratory failure; Improved after HD.Started on solumedrol. 2.. Leukocytosis 18k-- now 13K; 3. Chest pain-s/p 2 angiographies and stenting-cardiology consult. 4. End-stage renal disease-on HD 5. Anxiety, depression with dissatisfaction 6. Diabetes type 2-better controlled 7. Osteoarthritis. 8. Anemia of chronic disease-H/H stable. 9. Status post multiple units of packed red blood cell transfusions. 10. Weight loss-more than 50lb in 8 months. 11. Hypertension-out of control during respiratory distress. 12. Memory impairment. 13. Major depression. 14. Back pain. 15. Benign prostatic hypertrophy. 16. S/P left forearm a/v shunt placement for dialysis-functions well , not mature yet. 17. S/P right Jugular vein cannulation for dialysis-no signs of infection. 18. Hypoxemia with hypercapnia on home 02 and BIPAP. 19. Anxiety; borderline personality; 20. Excessive thirst. 21. Constipation Cont'd Hospitalization Reason: pneumonia Subjective 24 Hr Interval Summary Free Text/Dictation Worsening of cough with worsening of wheezing. Subjective hx not possible: pt critical Constitutional: chills, diaphoresis, disoriented, improved, poor po, requiring O2, No febrile, No no complaints, No other, No requiring IVF Eyes: redness, visual change, No discharge, No no complaints, No other, No pain ENT: congestion, discharge, sore throat, No bleeding, No dysphagia, No no complaints, No other, No pain Respiratory: cough, pain, shortness of breath, No no complaints, No other, No pleuritic pain, No sputum, No wheezing Cardiovascular: chest pain, lightheadedness, orthopenea, palpitations, paroxysmal nocturnal dyspnea, No edema, No no complaints, No other Gastrointestinal: constipation, decreased appetite, nausea, passing stool, No blood, No diarrhea, No flatus, No no complaints, No other, No pain, No vomiting Genitourinary: dysuria, flank pain, No bleeding, No discharge, No hematuria, No no complaints, No other Musculoskeletal: back pain, bone/joint pain, neck pain, restricted range of motion, No no complaints, No other, No swelling Skin: pruritis, No bruising, No erythema, No laceration, No no complaints, No other, No rash , No skin lesions Neurologic: confusion, dizziness, headache, No focal-weakness, No no complaints, No other, No seizure, No syncope Endocrine: No dry skin, No no complaints, No other, No polydypsia, No polyuria , No temp intolerance Lymphatic: tender nodes Psychological: anxiety, depression Immunologic: pruritis Exam/Review of Systems Vital Signs Vitals Vital Signs Date Time Temp Pulse Resp B/P Pulse Ox O2 Delivery O2 Flow Rate FiO2 05/16/16 19:56 Nasal Cannula 3.0 05/16/16 16:22 80 05/16/16 15:03 98.2 20 129/64 98 05/16/16 14:48 32 Intake and Output 05/15/16 05/15/16 05/16/16 15:00 23:00 07:00 Intake Total 480 ml 150 ml Output Total 0 ml Balance 480 ml 150 ml Exam Constitutional: alert, distress, frail, oriented, other (Complins about everything.), well developed Psych: anxiety, confusion, depression, No nl mood/affect, No no complaints, No other, No suicidal Head: atraumatic, normocephalic, No hematomas, No lacerations, No other Eyes: EOMI, PERRL, nl conjunctiva, nl lids, No fundi, disc, No icteric, No nl sclera, No other ENMT: nl nasal mucosa & septum, No intubated, No mucosa pink and moist, No nl external ears & nose, No nl lips & teeth, No other, No tympanic membranes Neck: bruits, jvd, nuchal rigidity, thyromegaly Respiratory: congested cough (more cough with usvai-[id number]-kriio sputum production getting worse.), crackles/rales (bilaterally lower lobes more prominent.), diminished breath sounds Cardiovascular: bruits, irregular rhythm (had an episode of VT 5 complexes x [address]Kassabian Quezada called.), jugular venous distention (JVD), murmurs/extra sounds, regular rate and rhythm, systolic murmur , No S3, No S4, No diastolic murmur, No edema, No gallop, No nl pulses, No other, No rub Gastrointestinal: bowel sounds, distended, nl liver, spleen, non-tender, soft, No ascites, No firm, No hepatomegaly, No mass, No other, No rebound or guarding, No splenomegaly, No surgical scars, No tender Musculoskeletal: joint tenderness, muscle tone, muscle weakness Extremities: calf tenderness, cyanosis, normal pulses (deminished with left cubital av sergei bruit.), No clubbing, No edema, No other, No palpable cord, No pitting pedal edema, No tenderness Neurological: STORE SPECIALIST II-XII intact, confused (on and and uses bad words, thinks abou "conspiracey" that caden doctors said don't take water out. Others are saying to take less.), nl speech, numbness Skin: nl turgor (decreased.), No diaphoresis, No ecchymosis, No laceration, No other, No puncture, No rash or lesions Lymph: No enlarged, No nl lymph nodes, No nontender, No other Results Result Diagram: 05/16/1618 05/16/16 0618 Results 24 hrs Laboratory Tests Test 05/15/16 20:11 05/16/16 06:18 05/16/16 07:48 05/16/16 09:25 Bedside Glucose 149 148 Anion Gap 19 H Basophils # 0.1 Basophils % 0.4 Blood Urea Nitrogen 66 H Calcium Level 8.7 Carbon Dioxide Level 28 Chloride Level 95 L Creatinine 7.18 H Eosinophils # 0.1 Eosinophils % 1.0 Glucose Level 125 # Hematocrit 33.1 L Hemoglobin 10.3 L Lymphocytes # 2.4 Lymphocytes % 17.2 Mean Corpuscular Hemoglobin 28.8 L Mean Corpuscular Hemoglobin Concent 31.1 L Mean Corpuscular Volume 92.5 Mean Platelet Volume 9.4 # Monocytes # 0.9 Monocytes % 6.2 Neutrophils # 9.7 H Neutrophils % 70.4 Nucleated Red Blood Cells # 0.0 Nucleated Red Blood Cells % 0.0 Platelet Count 420 Potassium Level 4.2 Red Blood Count 3.58 L Red Cell Distribution Width 14.3 Sodium Level 138 White Blood Count 13.7 H Urine Bilirubin NEGATIVE Urine Clarity CLEAR Urine Color LT. YELLOW Urine Glucose NEGATIVE Urine Hemoglobin 3+ H Urine Ketones NEGATIVE Urine Leukocyte Esterase NEGATIVE Urine Microscopic RBC 25-50 Urine Microscopic WBC 2-5 Urine Nitrite NEGATIVE Urine Red Blood Cell Casts RARE Urine Specific [place] 1.015 Urine Total Protein 4+ H Urine Urobilinogen 0.2 E.U./dL Urine Waxy Casts RARE Urine Yeast MODERATE Urine pH 6.5 Test 05/16/16 11:35 05/16/16 17:07 Bedside Glucose 136 170 Medications Medications Current Medications Ondansetron HCl (Zofran Tab) 4 mg Q6H PRN PO NAUSEA AND/OR VOMITING; Start at 14:30 Docusate Sodium (Colace) 100 mg Q12H PRN PO CONSTIPATION; Start 05/12/16 at 14: 30 Magnesium Hydroxide (Milk Of Mag) 30 ml DAILY PRN PO CONSTIPATION; Start at 14:30 Zolpidem Tartrate (Ambien) 5 mg QHS PRN PO SLEEP; Start 05/12/16 at 14:30 Heparin Sodium (Porcine) (Heparin (5000 Units/0.5 ml)) 5,000 unit Q12 SC Last administered on 05/13/16 23:01; Admin Dose 5,000 UNIT; Start 05/12/16 at 21:00 Acetaminophen (Tylenol Tab) 650 mg Q6H PRN PO PAIN AND OR ELEVATED TEMP; Start 05/13/16 at 00:00 Carvedilol (Coreg) 12.5 mg BID PO Last administered on 05/13/16 22:28; Admin Dose 12.5 MG; Start 05/13/16 at 09:00 Clonidine (Catapres) 0.1 mg TID PO Last administered on 05/13/16 10:03; Admin Dose 0.1 MG; Start 05/13/16 at 09:00 Clopidogrel Bisulfate (plaVIX) 75 mg DAILY PO Last administered on 05/13/16 10: 03; Admin Dose 75 MG; Start 05/13/16 at 09:00 Epoetin [place] (Epogen (Esrd)) 10,000 units MoWeFr@17 SC Last administered on 05/15 16:40; Admin Dose 10,000 UNITS; Start 05/13/16 at 17:00 Levalbuterol (Xopenex Hfa) 2 puff Q4H PRN INH WHEEZING AND SOB; Start 05/13/16 at 00:00 Minoxidil (Loniten) 5 mg BID PO ; Start 05/13/16 at 09:00 Nifedipine (Procardia Xl) 30 mg BID PO Last administered on 05/13/16 10:02; Admin Dose 30 MG; Start 05/13/16 at 09:00 Pantoprazole (Protonix Tab) 40 mg DAILY@06 PO Last administered on 05/16/16 08: 31; Admin Dose 40 MG; Start 05/13/16 at 06:00 Salmeterol Xinafoate/ Fluticasone (Advair 500/50 Diskus) 1 inh BID INH Last administered on 05/16/16 08:32; Admin Dose 1 INH; Start 05/13/16 at 09:00 Senna (Senokot) 1 tab DAILY PRN PO CONSTIPATION; Start 05/13/16 at 00:00 Tamsulosin HCl (Flomax) 0.4 mg HS PO Last administered on 05/15/16 20:12; Admin Dose 0.4 MG; Start 05/13/16 at 21:00 Tiotropium [place] (Spiriva) 1 inh BID INH Last administered on 05/16/16 09:02 ; Admin Dose 1 INH; Start 05/13/16 at 09:00 Valsartan (Diovan) 320 mg DAILY PO Last administered on 05/13/16 10:02; Admin Dose 320 MG; Start 05/13/16 at 09:00 Diagnostic Test (Pha) (Accucheck) 1 ea 02 XX Last administered on 05/13/16 02: 02; Admin Dose 1 EA; Start 05/13/16 at 02:00 Miscellaneous Information 1 ea NOTE XX ; Start 05/12/16 at 23:45 Glucose (Glutose) 15 gm Q15M PRN PO DECREASED GLUCOSE; Start 05/12/16 at 23:45 Glucose (Glutose) 22.5 gm Q15M PRN PO DECREASED GLUCOSE; Start 05/12/16 at 23: 45 Dextrose (D50w Syringe) 25 ml Q15M PRN IV DECREASED GLUCOSE; Start 05/12/16 at 23:45 Dextrose (D50w Syringe) 50 ml Q15M PRN IV DECREASED GLUCOSE; Start 05/12/16 at 23:45 Glucagon (Glucagen) 1 mg Q15M PRN IM DECREASED GLUCOSE; Start 05/12/16 at 23:45 Glucose (Glutose) 15 gm Q15M PRN BUCCAL DECREASED GLUCOSE; Start 05/12/16 at 23 :45 Multivit/Ca Carb/ B Cmplx/FA/Prenat 1 tab 1 tab DAILY PO Last administered on 14:17; Admin Dose 1 TAB; Start 05/15/16 at 09:00 Cefepime HCl (Maxipime 1gm/50 ml (Pmx)) 50 ml @ 100 mls/hr Q24H IVPB Last administered on 05/16/16 16:17; Admin Dose 100 MLS/HR; Start 05/15/16 at 16:00 Gentamicin Sulfate (Gentamicin Iv Per Pharmacy) GENTAMICIN PER PHARMACY NOTE XX ; Start 05/16/16 at 19:30 HINA CASTILLO MD May 16, 2016 20:05
[2016-05-16] MEDS ORDERED: HYDROCORTISONE 250 MG INJ IV ONE (20:30)
[2016-05-16] MEDS ORDERED: HYDROCORTISONE 100 MG INJ IV ONE (20:30)
[2016-05-16] MEDS: GENTAMICIN 80 MG/NS (PMX) 50 ML IVPB SCH (20:46)
[2016-05-16] MEDS: TAMSULOSIN (SR) 0.4 MG CAP PO SCH (21:36)
[2016-05-17] VITALS (12 sets, daily range): BP systolic 125–159; BP diastolic 58–67; PULSE 67–78; RESP 17–20
[2016-05-17] MEDS: ACCUCHECK XX SCH (02:00)
[2016-05-17] MEDS: ALBUTEROL 0.5% (NEB) 2.5 MG/0.5 ML AMP NEB SCH ×4 (02:16→20:17)
[2016-05-17] MEDS: IPRATROPIUM (NEB) 0.5 MG/2.5 ML AMP NEB SCH ×4 (02:16→20:16)
[2016-05-17] MEDS: LEVOTHYROXINE 125 MCG TAB PO SCH (06:24)
[2016-05-17] MEDS: PANTOPRAZOLE (EC) 40 MG TAB PO SCH (06:24)
[2016-05-17] MEDS: INSULIN ASPART [NOVOLOG] 3 ML PEN SC SCH ×4 (07:24→20:39)
--- NOTE | 2016-05-17 08:25 | CONS ---
Date/Time of Note Date/Time of Note DATE: 05/17/16 TIME: 08:23 Assessment/Plan Assessment/Plan Problems: (1) ESRD (end stage renal disease) on dialysis Comment: jyothi HD well yesterday w UF... next HD (2) Pneumonia Comment: on abx... stable sats and PE Consultation Date/Type/Reason Admit Date/Time May 12, 2016 at 09:46 Type of Consultation: neph Referring Provider: HINA CASTILLO MD 24 HR Interval Summary Free Text/Dictation no change,,,angry Exam/Review of Systems Vital Signs Vitals Vital Signs Date Time Temp Pulse Resp B/P Pulse Ox O2 Delivery O2 Flow Rate FiO2 05/17/16 08:14 98.0 70 18 159/67 98 05/17/16 02:16 Nasal Cannula 3.0 05/16/16 20:06 32 Intake and Output 05/16/16 05/16/16 05/17/16 15:00 23:00 07:00 Intake Total 1120 ml 290 ml 120 ml Output Total 7200 ml 3000 ml Balance -6080 ml -2710 ml 120 ml Exam Constitutional: alert Psych: no complaints Respiratory: clear to auscultation Extremities: other (permacath rt chest... no edema) Results Result Diagram: 05/16/16 0618 05/16/16 0618 Results 24 hrs Laboratory Tests Test 05/16/16 09:25 05/16/16 11:35 05/16/16 17:07 05/16/16 20:31 Urine Bilirubin NEGATIVE Urine Clarity CLEAR Urine Color LT. YELLOW Urine Glucose NEGATIVE Urine Hemoglobin 3+ H Urine Ketones NEGATIVE Urine Leukocyte Esterase NEGATIVE Urine Microscopic RBC 25-50 Urine Microscopic WBC 2-5 Urine Nitrite NEGATIVE Urine Red Blood Cell Casts RARE Urine Specific [place] 1.015 Urine Total Protein 4+ H Urine Urobilinogen 0.2 E.U./dL Urine Waxy Casts RARE Urine Yeast MODERATE Urine pH 6.5 Bedside Glucose 136 170 127 Test 05/17/16 07:08 Bedside Glucose 134 Medications Medications Current Medications Ondansetron HCl (Zofran Tab) 4 mg Q6H PRN PO NAUSEA AND/OR VOMITING; Start at 14:30 Docusate Sodium (Colace) 100 mg Q12H PRN PO CONSTIPATION; Start 05/12/16 at 14: 30 Magnesium Hydroxide (Milk Of Mag) 30 ml DAILY PRN PO CONSTIPATION; Start at 14:30 Zolpidem Tartrate (Ambien) 5 mg QHS PRN PO SLEEP; Start 05/12/16 at 14:30 Heparin Sodium (Porcine) (Heparin (5000 Units/0.5 ml)) 5,000 unit Q12 SC Last administered on 05/16/16 21:28; Admin Dose 5,000 UNIT; Start 05/12/16 at 21:00 Acetaminophen (Tylenol Tab) 650 mg Q6H PRN PO PAIN AND OR ELEVATED TEMP; Start 05/13/16 at 00:00 Carvedilol (Coreg) 12.5 mg BID PO Last administered on 05/16/16 21:20; Admin Dose 12.5 MG; Start 05/13/16 at 09:00 Clonidine (Catapres) 0.1 mg TID PO Last administered on 05/13/16 10:03; Admin Dose 0.1 MG; Start 05/13/16 at 09:00 Epoetin [place] (Epogen (Esrd)) 10,000 units MoWeFr@17 SC Last administered on 05/15 16:40; Admin Dose 10,000 UNITS; Start 05/13/16 at 17:00 Levalbuterol (Xopenex Hfa) 2 puff Q4H PRN INH WHEEZING AND SOB; Start 05/13/16 at 00:00 Minoxidil (Loniten) 5 mg BID PO ; Start 05/13/16 at 09:00 Nifedipine (Procardia Xl) 30 mg BID PO Last administered on 05/16/16 21:20; Admin Dose 30 MG; Start 05/13/16 at 09:00 Pantoprazole (Protonix Tab) 40 mg DAILY@06 PO Last administered on 05/17/16 06: 24; Admin Dose 40 MG; Start 05/13/16 at 06:00 Salmeterol Xinafoate/ Fluticasone (Advair 500/50 Diskus) 1 inh BID INH Last administered on 05/16/16 20:34; Admin Dose 1 INH; Start 05/13/16 at 09:00 Senna (Senokot) 1 tab DAILY PRN PO CONSTIPATION; Start 05/13/16 at 00:00 Tamsulosin HCl (Flomax) 0.4 mg HS PO Last administered on 05/16/16 21:36; Admin Dose 0.4 MG; Start 05/13/16 at 21:00 Tiotropium [place] (Spiriva) 1 inh BID INH Last administered on 05/16/16 21:19 ; Admin Dose 1 INH; Start 05/13/16 at 09:00 Valsartan (Diovan) 320 mg DAILY PO Last administered on 05/13/16 10:02; Admin Dose 320 MG; Start 05/13/16 at 09:00 Diagnostic Test (Pha) (Accucheck) 1 ea 02 XX Last administered on 05/13/16 02: 02; Admin Dose 1 EA; Start 05/13/16 at 02:00 Miscellaneous Information 1 ea NOTE XX ; Start 05/12/16 at 23:45 Glucose (Glutose) 15 gm Q15M PRN PO DECREASED GLUCOSE; Start 05/12/16 at 23:45 Glucose (Glutose) 22.5 gm Q15M PRN PO DECREASED GLUCOSE; Start 05/12/16 at 23: 45 Dextrose (D50w Syringe) 25 ml Q15M PRN IV DECREASED GLUCOSE; Start 05/12/16 at 23:45 Dextrose (D50w Syringe) 50 ml Q15M PRN IV DECREASED GLUCOSE; Start 05/12/16 at 23:45 Glucagon (Glucagen) 1 mg Q15M PRN IM DECREASED GLUCOSE; Start 05/12/16 at 23:45 Glucose (Glutose) 15 gm Q15M PRN BUCCAL DECREASED GLUCOSE; Start 05/12/16 at 23 :45 Multivit/Ca Carb/ B Cmplx/FA/Prenat 1 tab 1 tab DAILY PO Last administered on 14:17; Admin Dose 1 TAB; Start 05/15/16 at 09:00 Cefepime HCl (Maxipime 1gm/50 ml (Pmx)) 50 ml @ 100 mls/hr Q24H IVPB Last administered on 05/16/16 16:17; Admin Dose 100 MLS/HR; Start 05/15/16 at 16:00 Gentamicin Sulfate (Gentamicin Iv Per Pharmacy) GENTAMICIN PER PHARMACY NOTE XX ; Start 05/16/16 at 19:30 Hydrocortisone (Solu-Cortef) 50 mg ONCE ONCE IV ; Start 05/17/16 at 09:00; Stop 05/17/16 at 09:01 Hydrocortisone (Solu-Cortef) 25 mg ONCE ONCE IV ; Start 05/18/16 at 09:00; Stop 05/18/16 at 09:01 ELENO MIR MD May 17, 2016 08:25
[2016-05-17] MEDS: SALMETEROL/FLUTICASONE 500/50 INHA INH SCH ×2 (08:33→20:42)
[2016-05-17] MEDS: TIOTROPIUM 18 MCG CAPSULE INHA DEV INH SCH ×2 (08:33→20:42)
[2016-05-17] MEDS: VALSARTAN 160 MG TAB PO SCH (08:35)
[2016-05-17] MEDS: MINOXIDIL 2.5 MG TAB PO SCH ×2 (08:35→20:58)
[2016-05-17] MEDS: CALCIUM ACETATE 667 MG CAP PO SCH ×3 (08:35→17:33)
[2016-05-17] MEDS: MULTIVIT/CA CARB/B CMPLX/FA TAB PO SCH (08:35)
[2016-05-17] MEDS: NIFEdipine (XL) 30 MG TAB PO SCH ×2 (08:36→20:51)
[2016-05-17] MEDS: HEPARIN 5,000 UNIT/0.5 ML SYG SC SCH ×2 (08:43→20:47)
[2016-05-17] MEDS ORDERED: HYDROCORTISONE 100 MG INJ IV ONE ×2 (09:00)
--- NOTE | 2016-05-17 13:10 | CONS ---
Date/Time of Note Date/Time of Note DATE: 05/17/16 TIME: 13:08 Assessment/Plan Assessment/Plan Chief Complaint/Hosp Course Asked to see pt in consultation due to NSVT. He has no CP except after HD. He has not been in to see me in the office and is in and out of [facility]. Problems: Additional Assessment/Plan # CHF Diastolic # NS-VT # CAD -stable, recent angio with patent stent # HTN # Hypotension during HD # Cough # ESRD on HD >> continue on current meds >> K Mg >> Adjust coreg if possible, can also consider changing to metoprolol if BP an issue >> HD per nephrology Consultation Date/Type/Reason Admit Date/Time May 12, 2016 at 09:46 Initial Consult Date Type of Consultation: cardiology Referring Provider: HINA CASTILOL MD Exam/Review of Systems Vital Signs Vitals Vital Signs Date Time Temp Pulse Resp B/P Pulse Ox O2 Delivery O2 Flow Rate FiO2 05/17/16 12:34 98.1 74 18 153/67 91 05/17/16 08:48 Nasal Cannula 3.0 32 Intake and Output 05/16/16 05/16/16 05/17/16 15:00 23:00 07:00 Intake Total 1120 ml 290 ml 120 ml Output Total 7200 ml 3000 ml Balance -6080 ml -2710 ml 120 ml Exam Constitutional: alert Psych: no complaints Head: normocephalic Eyes: nl conjunctiva ENMT: nl external ears & nose Neck: supple Respiratory: clear to auscultation Cardiovascular: regular rate and rhythm Gastrointestinal: soft Extremities: normal pulses Neurological: SAP SECURITY CONSULTANT II-XII intact Results Result Diagram: 05/16/16 0618 05/16/16 0618 Results 24 hrs Laboratory Tests Test 05/16/16 17:07 05/16/16 20:31 05/17/16 05:55 05/17/16 07:08 Bedside Glucose 170 127 134 Random Vancomycin Level 15.2 Test 05/17/16 12:19 Bedside Glucose 155 Medications Medications Current Medications Ondansetron HCl (Zofran Tab) 4 mg Q6H PRN PO NAUSEA AND/OR VOMITING; Start at 14:30 Docusate Sodium (Colace) 100 mg Q12H PRN PO CONSTIPATION; Start 05/12/16 at 14: 30 Magnesium Hydroxide (Milk Of Mag) 30 ml DAILY PRN PO CONSTIPATION; Start at 14:30 Zolpidem Tartrate (Ambien) 5 mg QHS PRN PO SLEEP; Start 05/12/16 at 14:30 Heparin Sodium (Porcine) (Heparin (5000 Units/0.5 ml)) 5,000 unit Q12 SC Last administered on 05/17/16 08:43; Admin Dose 5,000 UNIT; Start 05/12/16 at 21:00 Acetaminophen (Tylenol Tab) 650 mg Q6H PRN PO PAIN AND OR ELEVATED TEMP; Start 05/13/16 at 00:00 Carvedilol (Coreg) 12.5 mg BID PO Last administered on 05/17/16 08:37; Admin Dose 12.5 MG; Start 05/13/16 at 09:00 Clonidine (Catapres) 0.1 mg TID PO Last administered on 05/17/16 12:33; Admin Dose 0.1 MG; Start 05/13/16 at 09:00 Epoetin [place]ordon (Epogen (Esrd)) 10,000 units MoWeFr@17 SC Last administered on 05/15 16:40; Admin Dose 10,000 UNITS; Start 05/13/16 at 17:00 Levalbuterol (Xopenex Hfa) 2 puff Q4H PRN INH WHEEZING AND SOB; Start 05/13/16 at 00:00 Minoxidil (Loniten) 5 mg BID PO Last administered on 05/17/16 08:35; Admin Dose 5 MG; Start 05/13/16 at 09:00 Nifedipine (Procardia Xl) 30 mg BID PO Last administered on 05/17/16 08:36; Admin Dose 30 MG; Start 05/13/16 at 09:00 Pantoprazole (Protonix Tab) 40 mg DAILY@06 PO Last administered on 05/17/16 06: 24; Admin Dose 40 MG; Start 05/13/16 at 06:00 Salmeterol Xinafoate/ Fluticasone (Advair 500/50 Diskus) 1 inh BID INH Last administered on 05/17/16 08:33; Admin Dose 1 INH; Start 05/13/16 at 09:00 Senna (Senokot) 1 tab DAILY PRN PO CONSTIPATION; Start 05/13/16 at 00:00 Tamsulosin HCl (Flomax) 0.4 mg HS PO Last administered on 05/16/16 21:36; Admin Dose 0.4 MG; Start 05/13/16 at 21:00 Tiotropium [place] (Spiriva) 1 inh BID INH Last administered on 05/17/16 08:33 ; Admin Dose 1 INH; Start 05/13/16 at 09:00 Valsartan (Diovan) 320 mg DAILY PO Last administered on 05/17/16 08:35; Admin Dose 320 MG; Start 05/13/16 at 09:00 Diagnostic Test (Pha) (Accucheck) 1 ea 02 XX Last administered on 05/13/16 02: 02; Admin Dose 1 EA; Start 05/13/16 at 02:00 Miscellaneous Information 1 ea NOTE XX ; Start 05/12/16 at 23:45 Glucose (Glutose) 15 gm Q15M PRN PO DECREASED GLUCOSE; Start 05/12/16 at 23:45 Glucose (Glutose) 22.5 gm Q15M PRN PO DECREASED GLUCOSE; Start 05/12/16 at 23: 45 Dextrose (D50w Syringe) 25 ml Q15M PRN IV DECREASED GLUCOSE; Start 05/12/16 at 23:45 Dextrose (D50w Syringe) 50 ml Q15M PRN IV DECREASED GLUCOSE; Start 05/12/16 at 23:45 Glucagon (Glucagen) 1 mg Q15M PRN IM DECREASED GLUCOSE; Start 05/12/16 at 23:45 Glucose (Glutose) 15 gm Q15M PRN BUCCAL DECREASED GLUCOSE; Start 05/12/16 at 23 :45 Multivit/Ca Carb/ B Cmplx/FA/Prenat 1 tab 1 tab DAILY PO Last administered on 08:35; Admin Dose 1 TAB; Start 05/15/16 at 09:00 Cefepime HCl (Maxipime 1gm/50 ml (Pmx)) 50 ml @ 100 mls/hr Q24H IVPB Last administered on 05/16/16 16:17; Admin Dose 100 MLS/HR; Start 05/15/16 at 16:00 Gentamicin Sulfate (Gentamicin Iv Per Pharmacy) GENTAMICIN PER PHARMACY NOTE XX ; Start 05/16/16 at 19:30 Hydrocortisone (Solu-Cortef) 25 mg ONCE ONCE IV ; Start 05/18/16 at 09:00; Stop 05/18/16 at 09:01 NIRANJAN CHRISTOPHER MD May 17, 2016 13:10
--- NOTE | 2016-05-17 15:22 | CONS ---
Date/Time of Note Date/Time of Note DATE: 05/17/16 TIME: 15:22 Assessment/Plan Assessment/Plan Chief Complaint/Hosp Course SUBJECTIVE: Alert, comfortable on 3 L nasal cannula. No fevers. MICROBIOLOGY: Sputum culture growing Branhamella catarrhalis and PSA. ANTIMICROBIALS: The patient is on Cefepime and Gentamicin. OBJECTIVE: GENERAL: This is a well-developed, fragile, elderly man who is in no distress. HEENT: Head atraumatic, normocephalic. Sclerae anicteric. Buccal mucosa dry. NECK: Supple, trachea midline. CHEST: Rise symmetrical. Breath sounds diminished to bases. HEART: S1, S2. ABDOMEN: Soft, bowel tones present. EXTREMITIES: Without cyanosis. ASSESSMENT: 1. S/p acute respiratory failure. 2. Pneumonia with sputum culture growing Branhamella catarrhalis/PSA. 3. End-stage renal disease, hemodialysis dependent. 4. Right chest Perm-A-Cath. 5. Anemia. 6. Chronic obstructive pulmonary disease exacerbation. PLAN: The patient remains stable. Continue abx, HD per renal DW staff Problems: Consultation Date/Type/Reason Admit Date/Time May 12, 2016 at 09:46 Type of Consultation: id Referring Provider: HINA CASTILLO MD Exam/Review of Systems Vital Signs Vitals Vital Signs Date Time Temp Pulse Resp B/P Pulse Ox O2 Delivery O2 Flow Rate FiO2 05/17/16 15:01 78 22 97 Nasal Cannula 3.0 32 05/17/16 12:34 98.1 153/67 Intake and Output 05/16/16 05/16/16 05/17/16 15:00 23:00 07:00 Intake Total 1120 ml 290 ml 120 ml Output Total 7200 ml 3000 ml Balance -6080 ml -2710 ml 120 ml Results Result Diagram: 05/16/16 0618 05/16/16 0618 Results 24 hrs Laboratory Tests Test 05/16/16 17:07 05/16/16 20:31 05/17/16 05:55 05/17/16 07:08 Bedside Glucose 170 127 134 Random Vancomycin Level 15.2 Test 05/17/16 12:19 Bedside Glucose 155 Medications Medications Current Medications Ondansetron HCl (Zofran Tab) 4 mg Q6H PRN PO NAUSEA AND/OR VOMITING; Start at 14:30 Docusate Sodium (Colace) 100 mg Q12H PRN PO CONSTIPATION; Start 05/12/16 at 14: 30 Magnesium Hydroxide (Milk Of Mag) 30 ml DAILY PRN PO CONSTIPATION; Start at 14:30 Zolpidem Tartrate (Ambien) 5 mg QHS PRN PO SLEEP; Start 05/12/16 at 14:30 Heparin Sodium (Porcine) (Heparin (5000 Units/0.5 ml)) 5,000 unit Q12 SC Last administered on 05/17/16 08:43; Admin Dose 5,000 UNIT; Start 05/12/16 at 21:00 Acetaminophen (Tylenol Tab) 650 mg Q6H PRN PO PAIN AND OR ELEVATED TEMP; Start 05/13/16 at 00:00 Carvedilol (Coreg) 12.5 mg BID PO Last administered on 05/17/16 08:37; Admin Dose 12.5 MG; Start 05/13/16 at 09:00 Clonidine (Catapres) 0.1 mg TID PO Last administered on 05/17/16 12:33; Admin Dose 0.1 MG; Start 05/13/16 at 09:00 Epoetin [place] (Epogen (Esrd)) 10,000 units MoWeFr@17 SC Last administered on 05/15 16:40; Admin Dose 10,000 UNITS; Start 05/13/16 at 17:00 Levalbuterol (Xopenex Hfa) 2 puff Q4H PRN INH WHEEZING AND SOB; Start 05/13/16 at 00:00 Minoxidil (Loniten) 5 mg BID PO Last administered on 05/17/16 08:35; Admin Dose 5 MG; Start 05/13/16 at 09:00 Nifedipine (Procardia Xl) 30 mg BID PO Last administered on 05/17/16 08:36; Admin Dose 30 MG; Start 05/13/16 at 09:00 Pantoprazole (Protonix Tab) 40 mg DAILY@06 PO Last administered on 05/17/16 06: 24; Admin Dose 40 MG; Start 05/13/16 at 06:00 Salmeterol Xinafoate/ Fluticasone (Advair 500/50 Diskus) 1 inh BID INH Last administered on 05/17/16 08:33; Admin Dose 1 INH; Start 05/13/16 at 09:00 Senna (Senokot) 1 tab DAILY PRN PO CONSTIPATION; Start 05/13/16 at 00:00 Tamsulosin HCl (Flomax) 0.4 mg HS PO Last administered on 05/16/16 21:36; Admin Dose 0.4 MG; Start 05/13/16 at 21:00 Tiotropium [place] (Spiriva) 1 inh BID INH Last administered on 05/17/16 08:33 ; Admin Dose 1 INH; Start 05/13/16 at 09:00 Valsartan (Diovan) 320 mg DAILY PO Last administered on 05/17/16 08:35; Admin Dose 320 MG; Start 05/13/16 at 09:00 Diagnostic Test (Pha) (Accucheck) 1 ea 02 XX Last administered on 05/13/16 02: 02; Admin Dose 1 EA; Start 05/13/16 at 02:00 Miscellaneous Information 1 ea NOTE XX ; Start 05/12/16 at 23:45 Glucose (Glutose) 15 gm Q15M PRN PO DECREASED GLUCOSE; Start 05/12/16 at 23:45 Glucose (Glutose) 22.5 gm Q15M PRN PO DECREASED GLUCOSE; Start 05/12/16 at 23: 45 Dextrose (D50w Syringe) 25 ml Q15M PRN IV DECREASED GLUCOSE; Start 05/12/16 at 23:45 Dextrose (D50w Syringe) 50 ml Q15M PRN IV DECREASED GLUCOSE; Start 05/12/16 at 23:45 Glucagon (Glucagen) 1 mg Q15M PRN IM DECREASED GLUCOSE; Start 05/12/16 at 23:45 Glucose (Glutose) 15 gm Q15M PRN BUCCAL DECREASED GLUCOSE; Start 05/12/16 at 23 :45 Multivit/Ca Carb/ B Cmplx/FA/Prenat 1 tab 1 tab DAILY PO Last administered on 08:35; Admin Dose 1 TAB; Start 05/15/16 at 09:00 Cefepime HCl (Maxipime 1gm/50 ml (Pmx)) 50 ml @ 100 mls/hr Q24H IVPB Last administered on 05/16/16 16:17; Admin Dose 100 MLS/HR; Start 05/15/16 at 16:00 Gentamicin Sulfate (Gentamicin Iv Per Pharmacy) GENTAMICIN PER PHARMACY NOTE XX ; Start 05/16/16 at 19:30 Hydrocortisone (Solu-Cortef) 25 mg ONCE ONCE IV ; Start 05/18/16 at 09:00; Stop 05/18/16 at 09:01 TRISH CUELLO NP May 17, 2016 15:22
--- NOTE | 2016-05-17 15:40 | CONS ---
Date/Time of Note Date/Time of Note DATE: 05/17/16 TIME: 15:38 Assessment/Plan Assessment/Plan Chief Complaint/Hosp Course Anemia - CHRONIC, MULTIFACTORIAL WITH COMPONENT ACD AND IRON DEFICIENCY CONT TO MONITOR BLOOD COUNT CLOSELY OBSERVE FOR BLEEDING AND HEMOLYSIS TRANSFUSE NEEDED EPO WITH HD Acute respiratory failure.- PER PULM AND NEPHRO Pneumonia End-stage renal disease, hemodialysis dependent. Right chest Perm-A-Cath. Chronic obstructive pulmonary disease exacerbation. Problems: Consultation Date/Type/Reason Admit Date/Time May 12, 2016 at 09:46 Initial Consult Date 05.12.16 Type of Consultation: [facility] Referring Provider: HINA CASTILLO MD 24 HR Interval Summary Free Text/Dictation ALL NOTED COUNT STABLE NO BLEEDING Exam/Review of Systems Vital Signs Vitals Vital Signs Date Time Temp Pulse Resp B/P Pulse Ox O2 Delivery O2 Flow Rate FiO2 05/17/16 15:01 78 22 97 Nasal Cannula 3.0 32 05/17/16 12:34 98.1 153/67 Intake and Output 05/16/16 05/16/16 05/17/16 15:00 23:00 07:00 Intake Total 1120 ml 290 ml 120 ml Output Total 7200 ml 3000 ml Balance -6080 ml -2710 ml 120 ml Exam Constitutional: alert, frail, No well developed Psych: anxiety, depression, no complaints Head: normocephalic Eyes: nl conjunctiva ENMT: nl external ears & nose Neck: jvd, supple Respiratory: congested cough Cardiovascular: other, regular rate and rhythm, systolic murmur, No edema Gastrointestinal: nl liver, spleen, soft Musculoskeletal: nl extremities to inspection Results Result Diagram: 05/16/16 0618 05/16/16 0618 Results 24 hrs Laboratory Tests Test 05/16/16 17:07 05/16/16 20:31 05/17/16 05:55 05/17/16 07:08 Bedside Glucose 170 127 134 Random Vancomycin Level 15.2 Test 05/17/16 12:19 Bedside Glucose 155 Medications Medications Current Medications Ondansetron HCl (Zofran Tab) 4 mg Q6H PRN PO NAUSEA AND/OR VOMITING; Start at 14:30 Docusate Sodium (Colace) 100 mg Q12H PRN PO CONSTIPATION; Start 05/12/16 at 14: 30 Magnesium Hydroxide (Milk Of Mag) 30 ml DAILY PRN PO CONSTIPATION; Start at 14:30 Zolpidem Tartrate (Ambien) 5 mg QHS PRN PO SLEEP; Start 05/12/16 at 14:30 Heparin Sodium (Porcine) (Heparin (5000 Units/0.5 ml)) 5,000 unit Q12 SC Last administered on 05/17/16 08:43; Admin Dose 5,000 UNIT; Start 05/12/16 at 21:00 Acetaminophen (Tylenol Tab) 650 mg Q6H PRN PO PAIN AND OR ELEVATED TEMP; Start 05/13/16 at 00:00 Carvedilol (Coreg) 12.5 mg BID PO Last administered on 05/17/16 08:37; Admin Dose 12.5 MG; Start 05/13/16 at 09:00 Clonidine (Catapres) 0.1 mg TID PO Last administered on 05/17/16 12:33; Admin Dose 0.1 MG; Start 05/13/16 at 09:00 Epoetin Jordon (Epogen (Esrd)) 10,000 units MoWeFr@17 SC Last administered on 05/15 16:40; Admin Dose 10,000 UNITS; Start 05/13/16 at 17:00 Levalbuterol (Xopenex Hfa) 2 puff Q4H PRN INH WHEEZING AND SOB; Start 05/13/16 at 00:00 Minoxidil (Loniten) 5 mg BID PO Last administered on 05/17/16 08:35; Admin Dose 5 MG; Start 05/13/16 at 09:00 Nifedipine (Procardia Xl) 30 mg BID PO Last administered on 05/17/16 08:36; Admin Dose 30 MG; Start 05/13/16 at 09:00 Pantoprazole (Protonix Tab) 40 mg DAILY@06 PO Last administered on 05/17/16 06: 24; Admin Dose 40 MG; Start 05/13/16 at 06:00 Salmeterol Xinafoate/ Fluticasone (Advair 500/50 Diskus) 1 inh BID INH Last administered on 05/17/16 08:33; Admin Dose 1 INH; Start 05/13/16 at 09:00 Senna (Senokot) 1 tab DAILY PRN PO CONSTIPATION; Start 05/13/16 at 00:00 Tamsulosin HCl (Flomax) 0.4 mg HS PO Last administered on 05/16/16 21:36; Admin Dose 0.4 MG; Start 05/13/16 at 21:00 Tiotropium [place] (Spiriva) 1 inh BID INH Last administered on 05/17/16 08:33 ; Admin Dose 1 INH; Start 05/13/16 at 09:00 Valsartan (Diovan) 320 mg DAILY PO Last administered on 05/17/16 08:35; Admin Dose 320 MG; Start 05/13/16 at 09:00 Diagnostic Test (Pha) (Accucheck) 1 ea 02 XX Last administered on 05/13/16 02: 02; Admin Dose 1 EA; Start 05/13/16 at 02:00 Miscellaneous Information 1 ea NOTE XX ; Start 05/12/16 at 23:45 Glucose (Glutose) 15 gm Q15M PRN PO DECREASED GLUCOSE; Start 05/12/16 at 23:45 Glucose (Glutose) 22.5 gm Q15M PRN PO DECREASED GLUCOSE; Start 05/12/16 at 23: 45 Dextrose (D50w Syringe) 25 ml Q15M PRN IV DECREASED GLUCOSE; Start 05/12/16 at 23:45 Dextrose (D50w Syringe) 50 ml Q15M PRN IV DECREASED GLUCOSE; Start 05/12/16 at 23:45 Glucagon (Glucagen) 1 mg Q15M PRN IM DECREASED GLUCOSE; Start 05/12/16 at 23:45 Glucose (Glutose) 15 gm Q15M PRN BUCCAL DECREASED GLUCOSE; Start 05/12/16 at 23 :45 Multivit/Ca Carb/ B Cmplx/FA/Prenat 1 tab 1 tab DAILY PO Last administered on 08:35; Admin Dose 1 TAB; Start 05/15/16 at 09:00 Cefepime HCl (Maxipime 1gm/50 ml (Pmx)) 50 ml @ 100 mls/hr Q24H IVPB Last administered on 05/16/16 16:17; Admin Dose 100 MLS/HR; Start 05/15/16 at 16:00 Gentamicin Sulfate (Gentamicin Iv Per Pharmacy) GENTAMICIN PER PHARMACY NOTE XX ; Start 05/16/16 at 19:30 Hydrocortisone (Solu-Cortef) 25 mg ONCE ONCE IV ; Start 05/18/16 at 09:00; Stop 05/18/16 at 09:01 ANDRE SMITH MD May 17, 2016 15:40
[2016-05-17] MEDS: CEFEPIME 1GM/50 ML (PMX) 50 ML IVPB SCH (16:27)
[2016-05-17] MEDS: TAMSULOSIN (SR) 0.4 MG CAP PO SCH (20:42)
[2016-05-18] VITALS (15 sets, daily range): BP systolic 114–148; BP diastolic 56–69; PULSE 63–86; RESP 18–21
[2016-05-18] MEDS: ACCUCHECK XX SCH (02:00)
[2016-05-18] MEDS: ALBUTEROL 0.5% (NEB) 2.5 MG/0.5 ML AMP NEB SCH ×4 (02:11→20:09)
[2016-05-18] MEDS: IPRATROPIUM (NEB) 0.5 MG/2.5 ML AMP NEB SCH ×4 (02:11→20:09)
[2016-05-18] MEDS: PANTOPRAZOLE (EC) 40 MG TAB PO SCH (06:00)
[2016-05-18] MEDS ORDERED: HYDROCORTISONE 100 MG INJ IV ONE ×2 (07:00→09:00)
[2016-05-18] MEDS: LEVOTHYROXINE 125 MCG TAB PO SCH (07:00)
[2016-05-18] MEDS: INSULIN ASPART [NOVOLOG] 3 ML PEN SC SCH ×4 (07:52→21:00)
--- NOTE | 2016-05-18 08:16 | CONS ---
Date/Time of Note Date/Time of Note DATE: 05/18/16 TIME: 08:14 Assessment/Plan Assessment/Plan Additional Assessment/Plan 1. Pneumonia is improving, abx per id 2. CKD, next HD tomm 3. Chronic Interstitial Lung dz 4. BP is controlled 5. DM, sugars are acceptable Consultation Date/Type/Reason Admit Date/Time May 12, 2016 at 09:46 [facility] Referring Provider: HINA CASTILLO MD Detailed Summary Respiratory: cough (is less), shortness of breath (is less) Cardiovascular: No chest pain Gastrointestinal: no complaints Genitourinary: no complaints Exam/Review of Systems Vital Signs Vitals Vital Signs Date Time Temp Pulse Resp B/P Pulse Ox O2 Delivery O2 Flow Rate FiO2 05/18/16 05:45 63 99 40 05/18/16 04:00 98.1 21 135/69 05/17/16 20:21 3.0 05/17/16 20:19 Nasal Cannula Intake and Output 05/17/16 05/17/16 05/18/16 15:00 23:00 07:00 Intake Total 700 ml 100 ml Output Total 200 ml Balance 500 ml 100 ml Exam Neck: No jvd Respiratory: diminished breath sounds (and unchagned rales at bases) Cardiovascular: regular rate and rhythm, No S3 Gastrointestinal: soft Extremities: No edema Results Result Diagram: 05/16/1661705/16/1618 Results 24 hrs Laboratory Tests Test 05/17/16 12:19 05/17/16 17:10 05/17/16 20:38 05/18/16 07:52 Bedside Glucose 155 148 170 112 Medications Medications Current Medications Ondansetron HCl (Zofran Tab) 4 mg Q6H PRN PO NAUSEA AND/OR VOMITING; Start at 14:30 Docusate Sodium (Colace) 100 mg Q12H PRN PO CONSTIPATION; Start 05/12/16 at 14: 30 Magnesium Hydroxide (Milk Of Mag) 30 ml DAILY PRN PO CONSTIPATION; Start at 14:30 Zolpidem Tartrate (Ambien) 5 mg QHS PRN PO SLEEP; Start 05/12/16 at 14:30 Heparin Sodium (Porcine) (Heparin (5000 Units/0.5 ml)) 5,000 unit Q12 SC Last administered on 05/17/16 20:47; Admin Dose 5,000 UNIT; Start 05/12/16 at 21:00 Acetaminophen (Tylenol Tab) 650 mg Q6H PRN PO PAIN AND OR ELEVATED TEMP; Start 05/13/16 at 00:00 Carvedilol (Coreg) 12.5 mg BID PO Last administered on 05/17/16 20:43; Admin Dose 12.5 MG; Start 05/13/16 at 09:00 Clonidine (Catapres) 0.1 mg TID PO Last administered on 05/17/16 12:33; Admin Dose 0.1 MG; Start 05/13/16 at 09:00 Epoetin [place] (Epogen (Esrd)) 10,000 units MoWeFr@17 SC Last administered on 05/15 16:40; Admin Dose 10,000 UNITS; Start 05/13/16 at 17:00 Levalbuterol (Xopenex Hfa) 2 puff Q4H PRN INH WHEEZING AND SOB; Start 05/13/16 at 00:00 Minoxidil (Loniten) 5 mg BID PO Last administered on 05/17/16 08:35; Admin Dose 5 MG; Start 05/13/16 at 09:00 Nifedipine (Procardia Xl) 30 mg BID PO Last administered on 05/17/16 20:51; Admin Dose 30 MG; Start 05/13/16 at 09:00 Pantoprazole (Protonix Tab) 40 mg DAILY@06 PO Last administered on 05/17/16 06: 24; Admin Dose 40 MG; Start 05/13/16 at 06:00 Salmeterol Xinafoate/ Fluticasone (Advair 500/50 Diskus) 1 inh BID INH Last administered on 05/17/16 20:42; Admin Dose 1 INH; Start 05/13/16 at 09:00 Senna (Senokot) 1 tab DAILY PRN PO CONSTIPATION; Start 05/13/16 at 00:00 Tamsulosin HCl (Flomax) 0.4 mg HS PO Last administered on 05/17/16 20:42; Admin Dose 0.4 MG; Start 05/13/16 at 21:00 Tiotropium [place] (Spiriva) 1 inh BID INH Last administered on 05/17/16 20:42 ; Admin Dose 1 INH; Start 05/13/16 at 09:00 Valsartan (Diovan) 320 mg DAILY PO Last administered on 05/17/16 08:35; Admin Dose 320 MG; Start 05/13/16 at 09:00 Diagnostic Test (Pha) (Accucheck) 1 ea 02 XX Last administered on 05/13/16 02: 02; Admin Dose 1 EA; Start 05/13/16 at 02:00 Miscellaneous Information 1 ea NOTE XX ; Start 05/12/16 at 23:45 Glucose (Glutose) 15 gm Q15M PRN PO DECREASED GLUCOSE; Start 05/12/16 at 23:45 Glucose (Glutose) 22.5 gm Q15M PRN PO DECREASED GLUCOSE; Start 05/12/16 at 23: 45 Dextrose (D50w Syringe) 25 ml Q15M PRN IV DECREASED GLUCOSE; Start 05/12/16 at 23:45 Dextrose (D50w Syringe) 50 ml Q15M PRN IV DECREASED GLUCOSE; Start 05/12/16 at 23:45 Glucagon (Glucagen) 1 mg Q15M PRN IM DECREASED GLUCOSE; Start 05/12/16 at 23:45 Glucose (Glutose) 15 gm Q15M PRN BUCCAL DECREASED GLUCOSE; Start 05/12/16 at 23 :45 Multivit/Ca Carb/ B Cmplx/FA/Prenat 1 tab 1 tab DAILY PO Last administered on 08:35; Admin Dose 1 TAB; Start 05/15/16 at 09:00 Cefepime HCl (Maxipime 1gm/50 ml (Pmx)) 50 ml @ 100 mls/hr Q24H IVPB Last administered on 05/17/16 16:27; Admin Dose 100 MLS/HR; Start 05/15/16 at 16:00 Gentamicin Sulfate (Gentamicin Iv Per Pharmacy) GENTAMICIN PER PHARMACY NOTE XX ; Start 05/16/16 at 19:30 Hydrocortisone (Solu-Cortef) 25 mg ONCE ONCE IV ; Start 05/18/16 at 09:00; Stop 05/18/16 at 09:01 TRUE GTZ MD May 18, 2016 08:16
[2016-05-18] MEDS: VALSARTAN 160 MG TAB PO SCH (09:00)
[2016-05-18] MEDS: TIOTROPIUM 18 MCG CAPSULE INHA DEV INH SCH ×2 (09:11→21:39)
[2016-05-18] MEDS: SALMETEROL/FLUTICASONE 500/50 INHA INH SCH ×2 (09:11→21:23)
[2016-05-18] MEDS: NIFEdipine (XL) 30 MG TAB PO SCH ×3 (09:15→21:21)
[2016-05-18] MEDS: MINOXIDIL 2.5 MG TAB PO SCH ×3 (09:16→21:20)
[2016-05-18] MEDS: CALCIUM ACETATE 667 MG CAP PO SCH ×3 (09:17→17:32)
[2016-05-18] MEDS: MULTIVIT/CA CARB/B CMPLX/FA TAB PO SCH (09:17)
--- NOTE | 2016-05-18 09:29 | CONS ---
Date/Time of Note Date/Time of Note DATE: 05/18/16 TIME: 09:29 Assessment/Plan Assessment/Plan Chief Complaint/Hosp Course Anemia - CHRONIC, MULTIFACTORIAL WITH COMPONENT ACD AND IRON DEFICIENCY CONT TO MONITOR BLOOD COUNT CLOSELY OBSERVE FOR BLEEDING AND HEMOLYSIS TRANSFUSE NEEDED EPO WITH HD Acute respiratory failure.- PER PULM AND NEPHRO Pneumonia End-stage renal disease, hemodialysis dependent. Right chest Perm-A-Cath. Chronic obstructive pulmonary disease exacerbation. Problems: Consultation Date/Type/Reason Admit Date/Time May 12, 2016 at 09:46 Initial Consult Date 05.12.16 Type of Consultation: [facility] Referring Provider: HINA CASTILLO MD 24 HR Interval Summary Free Text/Dictation Respiratory: cough (is less), shortness of breath (is less) Cardiovascular: No chest pain Gastrointestinal: no complaints Genitourinary: no complaints Exam/Review of Systems Vital Signs Vitals Vital Signs Date Time Temp Pulse Resp B/P Pulse Ox O2 Delivery O2 Flow Rate FiO2 05/18/16 09:09 67 05/18/16 08:27 98.0 18 125/60 98 05/18/16 08:14 3.0 05/18/16 08:13 Nasal Cannula 05/18/16 07:30 40 Intake and Output 05/17/16 05/17/16 05/18/16 15:00 23:00 07:00 Intake Total 700 ml 100 ml Output Total 200 ml Balance 500 ml 100 ml Exam Constitutional: alert, frail, No well developed Psych: anxiety, depression, no complaints Head: normocephalic Eyes: nl conjunctiva ENMT: nl external ears & nose Neck: jvd, supple Respiratory: congested cough Cardiovascular: other, regular rate and rhythm, systolic murmur, No edema Gastrointestinal: nl liver, spleen, soft Musculoskeletal: nl extremities to inspection Results Result Diagram: 05/16/16 0618 05/16/16 0618 Results 24 hrs Laboratory Tests Test 05/17/16 12:19 05/17/16 17:10 05/17/16 20:38 05/18/16 07:52 Bedside Glucose 155 148 170 112 Medications Medications Current Medications Ondansetron HCl (Zofran Tab) 4 mg Q6H PRN PO NAUSEA AND/OR VOMITING; Start at 14:30 Docusate Sodium (Colace) 100 mg Q12H PRN PO CONSTIPATION; Start 05/12/16 at 14: 30 Magnesium Hydroxide (Milk Of Mag) 30 ml DAILY PRN PO CONSTIPATION; Start at 14:30 Zolpidem Tartrate (Ambien) 5 mg QHS PRN PO SLEEP; Start 05/12/16 at 14:30 Heparin Sodium (Porcine) (Heparin (5000 Units/0.5 ml)) 5,000 unit Q12 SC Last administered on 05/17/16 20:47; Admin Dose 5,000 UNIT; Start 05/12/16 at 21:00 Acetaminophen (Tylenol Tab) 650 mg Q6H PRN PO PAIN AND OR ELEVATED TEMP; Start 05/13/16 at 00:00 Carvedilol (Coreg) 12.5 mg BID PO Last administered on 05/17/16 20:43; Admin Dose 12.5 MG; Start 05/13/16 at 09:00 Clonidine (Catapres) 0.1 mg TID PO Last administered on 05/17/16 12:33; Admin Dose 0.1 MG; Start 05/13/16 at 09:00 Epoetin [place] (Epogen (Esrd)) 10,000 units MoWeFr@17 SC Last administered on 05/15 16:40; Admin Dose 10,000 UNITS; Start 05/13/16 at 17:00 Levalbuterol (Xopenex Hfa) 2 puff Q4H PRN INH WHEEZING AND SOB; Start 05/13/16 at 00:00 Minoxidil (Loniten) 5 mg BID PO Last administered on 05/17/16 08:35; Admin Dose 5 MG; Start 05/13/16 at 09:00 Nifedipine (Procardia Xl) 30 mg BID PO Last administered on 05/17/16 20:51; Admin Dose 30 MG; Start 05/13/16 at 09:00 Pantoprazole (Protonix Tab) 40 mg DAILY@06 PO Last administered on 05/17/16 06: 24; Admin Dose 40 MG; Start 05/13/16 at 06:00 Salmeterol Xinafoate/ Fluticasone (Advair 500/50 Diskus) 1 inh BID INH Last administered on 05/17/16 20:42; Admin Dose 1 INH; Start 05/13/16 at 09:00 Senna (Senokot) 1 tab DAILY PRN PO CONSTIPATION; Start 05/13/16 at 00:00 Tamsulosin HCl (Flomax) 0.4 mg HS PO Last administered on 05/17/16 20:42; Admin Dose 0.4 MG; Start 05/13/16 at 21:00 Tiotropium [place] (Spiriva) 1 inh BID INH Last administered on 05/17/16 20:42 ; Admin Dose 1 INH; Start 05/13/16 at 09:00 Valsartan (Diovan) 320 mg DAILY PO Last administered on 05/17/16 08:35; Admin Dose 320 MG; Start 05/13/16 at 09:00 Diagnostic Test (Pha) (Accucheck) 1 ea 02 XX Last administered on 05/13/16 02: 02; Admin Dose 1 EA; Start 05/13/16 at 02:00 Miscellaneous Information 1 ea NOTE XX ; Start 05/12/16 at 23:45 Glucose (Glutose) 15 gm Q15M PRN PO DECREASED GLUCOSE; Start 05/12/16 at 23:45 Glucose (Glutose) 22.5 gm Q15M PRN PO DECREASED GLUCOSE; Start 05/12/16 at 23: 45 Dextrose (D50w Syringe) 25 ml Q15M PRN IV DECREASED GLUCOSE; Start 05/12/16 at 23:45 Dextrose (D50w Syringe) 50 ml Q15M PRN IV DECREASED GLUCOSE; Start 05/12/16 at 23:45 Glucagon (Glucagen) 1 mg Q15M PRN IM DECREASED GLUCOSE; Start 05/12/16 at 23:45 Glucose (Glutose) 15 gm Q15M PRN BUCCAL DECREASED GLUCOSE; Start 05/12/16 at 23 :45 Multivit/Ca Carb/ B Cmplx/FA/Prenat 1 tab 1 tab DAILY PO Last administered on 08:35; Admin Dose 1 TAB; Start 05/15/16 at 09:00 Cefepime HCl (Maxipime 1gm/50 ml (Pmx)) 50 ml @ 100 mls/hr Q24H IVPB Last administered on 05/17/16 16:27; Admin Dose 100 MLS/HR; Start 05/15/16 at 16:00 Gentamicin Sulfate (Gentamicin Iv Per Pharmacy) GENTAMICIN PER PHARMACY NOTE XX ; Start 05/16/16 at 19:30 ANDRE SMITH MD May 18, 2016 09:29
[2016-05-18] MEDS: HEPARIN 5,000 UNIT/0.5 ML SYG SC SCH ×2 (09:47→21:34)
[2016-05-18 10:27] LABS: H1N1 2009 FLU A RNA NOT DETECTED; H1N1 2009 SOURCE NASOPHARYGEAL
--- NOTE | 2016-05-18 13:11 | CONS ---
Date/Time of Note Date/Time of Note DATE: 05/18/16 TIME: 13:07 Assessment/Plan Assessment/Plan Chief Complaint/Hosp Course # Chronic CHF Diastolic # NS-VT- no events overnight # CAD -stable, recent angio with patent stent # HTN # Hypotension during HD # Cough # ESRD on HD # Pneumonia >> continue on current meds >> K Mg >>cont coreg >> HD per nephrology Problems: Consultation Date/Type/Reason Admit Date/Time May 12, 2016 at 09:46 Initial Consult Date Type of Consultation: Cardiology Referring Provider: HINA CASTILLO MD 24 HR Interval Summary Free Text/Dictation no acute events. denies cp/sob. no palpitations, dizziness. tele reviewed: no events. nsr, pvc rare Exam/Review of Systems Vital Signs Vitals Vital Signs Date Time Temp Pulse Resp B/P Pulse Ox O2 Delivery O2 Flow Rate FiO2 05/18/16 12:01 98.0 67 18 114/56 98 05/18/16 08:14 3.0 05/18/16 08:13 Nasal Cannula 05/18/16 07:30 40 Intake and Output 05/17/16 05/17/16 05/18/16 15:00 23:00 07:00 Intake Total 700 ml 100 ml Output Total 200 ml Balance 500 ml 100 ml Exam Constitutional: alert Psych: no complaints Head: normocephalic Eyes: nl conjunctiva ENMT: nl external ears & nose Neck: supple Respiratory: clear to auscultation Cardiovascular: regular rate and rhythm Gastrointestinal: soft Extremities: normal pulses Neurological: [employer] II-XII intact Results Result Diagram: 05/16/1618 05/16/1618 Results 24 hrs Laboratory Tests Test 05/17/16 17:10 05/17/16 20:38 05/18/16 07:52 05/18/16 11:57 Bedside Glucose 148 170 112 120 Medications Medications Current Medications Ondansetron HCl (Zofran Tab) 4 mg Q6H PRN PO NAUSEA AND/OR VOMITING; Start at 14:30 Docusate Sodium (Colace) 100 mg Q12H PRN PO CONSTIPATION; Start 05/12/16 at 14: 30 Magnesium Hydroxide (Milk Of Mag) 30 ml DAILY PRN PO CONSTIPATION; Start at 14:30 Zolpidem Tartrate (Ambien) 5 mg QHS PRN PO SLEEP; Start 05/12/16 at 14:30 Heparin Sodium (Porcine) (Heparin (5000 Units/0.5 ml)) 5,000 unit Q12 SC Last administered on 05/18/16 09:47; Admin Dose 5,000 UNIT; Start 05/12/16 at 21:00 Acetaminophen (Tylenol Tab) 650 mg Q6H PRN PO PAIN AND OR ELEVATED TEMP; Start 05/13/16 at 00:00 Carvedilol (Coreg) 12.5 mg BID PO Last administered on 05/18/16 09:13; Admin Dose 12.5 MG; Start 05/13/16 at 09:00 Clonidine (Catapres) 0.1 mg TID PO Last administered on 05/17/16 12:33; Admin Dose 0.1 MG; Start 05/13/16 at 09:00 Epoetin Jordon (Epogen (Esrd)) 10,000 units MoWeFr@17 SC Last administered on 05/15 16:40; Admin Dose 10,000 UNITS; Start 05/13/16 at 17:00 Levalbuterol (Xopenex Hfa) 2 puff Q4H PRN INH WHEEZING AND SOB; Start 05/13/16 at 00:00 Minoxidil (Loniten) 5 mg BID PO Last administered on 05/18/16 09:16; Admin Dose 5 MG; Start 05/13/16 at 09:00 Nifedipine (Procardia Xl) 30 mg BID PO Last administered on 05/18/16 09:15; Admin Dose 30 MG; Start 05/13/16 at 09:00 Pantoprazole (Protonix Tab) 40 mg DAILY@06 PO Last administered on 05/17/16 06: 24; Admin Dose 40 MG; Start 05/13/16 at 06:00 Salmeterol Xinafoate/ Fluticasone (Advair 500/50 Diskus) 1 inh BID INH Last administered on 05/18/16 09:11; Admin Dose 1 INH; Start 05/13/16 at 09:00 Senna (Senokot) 1 tab DAILY PRN PO CONSTIPATION; Start 05/13/16 at 00:00 Tamsulosin HCl (Flomax) 0.4 mg HS PO Last administered on 05/17/16 20:42; Admin Dose 0.4 MG; Start 05/13/16 at 21:00 Tiotropium [place] (Spiriva) 1 inh BID INH Last administered on 05/18/16 09:11 ; Admin Dose 1 INH; Start 05/13/16 at 09:00 Valsartan (Diovan) 320 mg DAILY PO Last administered on 05/17/16 08:35; Admin Dose 320 MG; Start 05/13/16 at 09:00 Diagnostic Test (Pha) (Accucheck) 1 ea 02 XX Last administered on 05/13/16 02: 02; Admin Dose 1 EA; Start 05/13/16 at 02:00 Miscellaneous Information 1 ea NOTE XX ; Start 05/12/16 at 23:45 Glucose (Glutose) 15 gm Q15M PRN PO DECREASED GLUCOSE; Start 05/12/16 at 23:45 Glucose (Glutose) 22.5 gm Q15M PRN PO DECREASED GLUCOSE; Start 05/12/16 at 23: 45 Dextrose (D50w Syringe) 25 ml Q15M PRN IV DECREASED GLUCOSE; Start 05/12/16 at 23:45 Dextrose (D50w Syringe) 50 ml Q15M PRN IV DECREASED GLUCOSE; Start 05/12/16 at 23:45 Glucagon (Glucagen) 1 mg Q15M PRN IM DECREASED GLUCOSE; Start 05/12/16 at 23:45 Glucose (Glutose) 15 gm Q15M PRN BUCCAL DECREASED GLUCOSE; Start 05/12/16 at 23 :45 Multivit/Ca Carb/ B Cmplx/FA/Prenat 1 tab 1 tab DAILY PO Last administered on 09:17; Admin Dose 1 TAB; Start 05/15/16 at 09:00 Cefepime HCl (Maxipime 1gm/50 ml (Pmx)) 50 ml @ 100 mls/hr Q24H IVPB Last administered on 05/17/16 16:27; Admin Dose 100 MLS/HR; Start 05/15/16 at 16:00 Gentamicin Sulfate (Gentamicin Iv Per Pharmacy) GENTAMICIN PER PHARMACY NOTE XX ; Start 05/16/16 at 19:30 TATA CAVANAUGH May 18, 2016 13:11
--- NOTE | 2016-05-18 15:03 | RADRPT ---
PROCEDURE: Chest Radiograph. CLINICAL INDICATION: Wheezing. Pneumonia. TECHNIQUE: Single frontal chest radiograph. COMPARISON: Chest radiograph 05/13/2016 FINDINGS: A right chest wall tunneled hemodialysis catheter remains in place. The heart is magnified. Athero sclerotic calcifications are present. There are diffuse interstitial opacities which are mildly imp roved when compared to prior study likely representing mildly improving pulmonary edema . No pulmon aurea infiltrate is seen. Trace bilateral pleural effusions likely persist. The bones are intact. IMPRESSION: 1. Mild improved interstitial edema. 2. Otherwise stable radiographic appearance of chest compared to 05/13/2016. RPTAT: KK .Pankaj Rush MD, MD Date Time Electronically viewed and signed by .Pankaj Rush MD, on 05/18/2016 08:51 .B/
--- NOTE | 2016-05-18 17:00 | CONS ---
Date/Time of Note Date/Time of Note DATE: 05/18/16 TIME: 16:59 Assessment/Plan Assessment/Plan Chief Complaint/Hosp Course SUBJECTIVE: Awake, comfortable on nasal cannula. No fevers. MICROBIOLOGY: Sputum culture growing Branhamella catarrhalis and PSA. ANTIMICROBIALS: The patient is on Cefepime and Gentamicin. OBJECTIVE: GENERAL: This is a well-developed, fragile, elderly man who is in no distress. HEENT: Head atraumatic, normocephalic. Sclerae anicteric. Buccal mucosa dry. NECK: Supple, trachea midline. CHEST: Rise symmetrical. Breath sounds diminished to bases. HEART: S1, S2. ABDOMEN: Soft, bowel tones present. EXTREMITIES: Without cyanosis. ASSESSMENT: 1. S/p acute respiratory failure. 2. Pneumonia with sputum culture growing Branhamella catarrhalis/PSA. 3. End-stage renal disease, hemodialysis dependent. 4. Right chest Perm-A-Cath. 5. Anemia. 6. Chronic obstructive pulmonary disease exacerbation. PLAN: The patient remains stable. Continue abx, HD per renal, will start Diflucan presence of yeast in the urine DW staff Problems: Consultation Date/Type/Reason Admit Date/Time May 12, 2016 at 09:46 Type of Consultation: ID Referring Provider: HINA CASTILLO MD Exam/Review of Systems Vital Signs Vitals Vital Signs Date Time Temp Pulse Resp B/P Pulse Ox O2 Delivery O2 Flow Rate FiO2 05/18/16 16:35 98.0 82 18 148/65 98 05/18/16 14:27 3.0 05/18/16 14:26 Nasal Cannula 05/18/16 07:30 40 Intake and Output 05/17/16 05/17/16 05/18/16 15:00 23:00 07:00 Intake Total 700 ml 100 ml Output Total 200 ml Balance 500 ml 100 ml Results Result Diagram: 05/16/1618 05/16/1618 Results 24 hrs Laboratory Tests Test 05/17/16 17:10 05/17/16 20:38 05/18/16 07:52 05/18/16 11:57 Bedside Glucose 148 170 112 120 Medications Medications Current Medications Ondansetron HCl (Zofran Tab) 4 mg Q6H PRN PO NAUSEA AND/OR VOMITING; Start at 14:30 Docusate Sodium (Colace) 100 mg Q12H PRN PO CONSTIPATION; Start 05/12/16 at 14: 30 Magnesium Hydroxide (Milk Of Mag) 30 ml DAILY PRN PO CONSTIPATION; Start at 14:30 Zolpidem Tartrate (Ambien) 5 mg QHS PRN PO SLEEP; Start 05/12/16 at 14:30 Heparin Sodium (Porcine) (Heparin (5000 Units/0.5 ml)) 5,000 unit Q12 SC Last administered on 05/18/16 09:47; Admin Dose 5,000 UNIT; Start 05/12/16 at 21:00 Acetaminophen (Tylenol Tab) 650 mg Q6H PRN PO PAIN AND OR ELEVATED TEMP; Start 05/13/16 at 00:00 Carvedilol (Coreg) 12.5 mg BID PO Last administered on 05/18/16 09:13; Admin Dose 12.5 MG; Start 05/13/16 at 09:00 Clonidine (Catapres) 0.1 mg TID PO Last administered on 05/17/16 12:33; Admin Dose 0.1 MG; Start 05/13/16 at 09:00 Epoetin [place] (Epogen (Esrd)) 10,000 units MoWeFr@17 SC Last administered on 05/15 16:40; Admin Dose 10,000 UNITS; Start 05/13/16 at 17:00 Levalbuterol (Xopenex Hfa) 2 puff Q4H PRN INH WHEEZING AND SOB; Start 05/13/16 at 00:00 Minoxidil (Loniten) 5 mg BID PO Last administered on 05/18/16 09:16; Admin Dose 5 MG; Start 05/13/16 at 09:00 Nifedipine (Procardia Xl) 30 mg BID PO Last administered on 05/18/16 09:15; Admin Dose 30 MG; Start 05/13/16 at 09:00 Pantoprazole (Protonix Tab) 40 mg DAILY@06 PO Last administered on 05/17/16 06: 24; Admin Dose 40 MG; Start 05/13/16 at 06:00 Salmeterol Xinafoate/ Fluticasone (Advair 500/50 Diskus) 1 inh BID INH Last administered on 05/18/16 09:11; Admin Dose 1 INH; Start 05/13/16 at 09:00 Senna (Senokot) 1 tab DAILY PRN PO CONSTIPATION; Start 05/13/16 at 00:00 Tamsulosin HCl (Flomax) 0.4 mg HS PO Last administered on 05/17/16 20:42; Admin Dose 0.4 MG; Start 05/13/16 at 21:00 Tiotropium [place] (Spiriva) 1 inh BID INH Last administered on 05/18/16 09:11 ; Admin Dose 1 INH; Start 05/13/16 at 09:00 Valsartan (Diovan) 320 mg DAILY PO Last administered on 05/17/16 08:35; Admin Dose 320 MG; Start 05/13/16 at 09:00 Diagnostic Test (Pha) (Accucheck) 1 ea 02 XX Last administered on 05/13/16 02: 02; Admin Dose 1 EA; Start 05/13/16 at 02:00 Miscellaneous Information 1 ea NOTE XX ; Start 05/12/16 at 23:45 Glucose (Glutose) 15 gm Q15M PRN PO DECREASED GLUCOSE; Start 05/12/16 at 23:45 Glucose (Glutose) 22.5 gm Q15M PRN PO DECREASED GLUCOSE; Start 05/12/16 at 23: 45 Dextrose (D50w Syringe) 25 ml Q15M PRN IV DECREASED GLUCOSE; Start 05/12/16 at 23:45 Dextrose (D50w Syringe) 50 ml Q15M PRN IV DECREASED GLUCOSE; Start 05/12/16 at 23:45 Glucagon (Glucagen) 1 mg Q15M PRN IM DECREASED GLUCOSE; Start 05/12/16 at 23:45 Glucose (Glutose) 15 gm Q15M PRN BUCCAL DECREASED GLUCOSE; Start 05/12/16 at 23 :45 Multivit/Ca Carb/ B Cmplx/FA/Prenat 1 tab 1 tab DAILY PO Last administered on 09:17; Admin Dose 1 TAB; Start 05/15/16 at 09:00 Cefepime HCl (Maxipime 1gm/50 ml (Pmx)) 50 ml @ 100 mls/hr Q24H IVPB Last administered on 05/17/16 16:27; Admin Dose 100 MLS/HR; Start 05/15/16 at 16:00 Gentamicin Sulfate (Gentamicin Iv Per Pharmacy) GENTAMICIN PER PHARMACY NOTE XX ; Start 05/16/16 at 19:30 TRISH CUELLO NP May 18, 2016 17:00
[2016-05-18] MEDS: FLUCONAZOLE 100 MG TAB PO SCH (17:32)
[2016-05-18] MEDS: CEFEPIME 1GM/50 ML (PMX) 50 ML IVPB SCH (17:33)
[2016-05-18] MEDS: EPOETIN 10000 UNITS/1 ML INJ (ESRD) SC SCH (19:03)
[2016-05-18] MEDS ORDERED: METHYLPRED. NA SUCC 250 MG in DEXTROSE 5% 50 ML IV ONE (20:00)
[2016-05-18] MEDS: TAMSULOSIN (SR) 0.4 MG CAP PO SCH (21:20)
[2016-05-19] VITALS (24 sets, daily range): BP systolic 95–145; BP diastolic 52–68; PULSE 57–88; RESP 20
[2016-05-19] MEDS: IPRATROPIUM (NEB) 0.5 MG/2.5 ML AMP NEB SCH ×4 (01:23→19:41)
[2016-05-19] MEDS: ALBUTEROL 0.5% (NEB) 2.5 MG/0.5 ML AMP NEB SCH ×4 (01:23→19:41)
[2016-05-19] MEDS: ACCUCHECK XX SCH (02:00)
[2016-05-19] MEDS: PANTOPRAZOLE (EC) 40 MG TAB PO SCH (06:00)
[2016-05-19] MEDS ORDERED: METHYLPREDNISOLONE 125 MG INJ IM SCH (08:00)
[2016-05-19] MEDS ORDERED: METHYLPREDNISOLONE 125 MG INJ IM ONE (08:00)
[2016-05-19 08:36] LABS: POTASSIUM 4.2 mmol/L (3.5-5.1)
--- NOTE | 2016-05-19 08:36 | CONS ---
Date/Time of Note Date/Time of Note DATE: 05/19/16 TIME: 08:34 Assessment/Plan Assessment/Plan Chief Complaint/Hosp Course # Chronic CHF Diastolic # NS-VT- no events overnight # CAD -stable, recent angio with patent stent # HTN # Hypotension during HD # Cough # ESRD on HD # Pneumonia >> continue on current meds >> K Mg >>cont coreg, bp meds >> fluid mgmt with iHD per nephrology Problems: Consultation Date/Type/Reason Admit Date/Time May 12, 2016 at 09:46 Type of Consultation: Cardiology Referring Provider: HINA CASTILLO MD 24 HR Interval Summary Free Text/Dictation no acute events. on iHD this am. denies cp/sob/palp Detailed Summary ENT: no complaints Respiratory: no complaints Cardiovascular: no complaints Exam/Review of Systems Vital Signs Vitals Vital Signs Date Time Temp Pulse Resp B/P Pulse Ox O2 Delivery O2 Flow Rate FiO2 05/19/16 08:15 78 05/19/16 07:26 98.6 20 121/59 05/19/16 04:23 96 05/19/16 01:23 40 05/18/16 20:09 3.0 05/18/16 20:09 Nasal Cannula Intake and Output 05/18/16 05/18/16 05/19/16 15:00 23:00 07:00 Intake Total 700 ml 200 ml Balance 700 ml 200 ml Exam Constitutional: alert Psych: no complaints Head: normocephalic Eyes: nl conjunctiva ENMT: nl external ears & nose Neck: supple Respiratory: clear to auscultation Cardiovascular: regular rate and rhythm Gastrointestinal: soft Extremities: normal pulses Neurological: BRICK BURNER HEAD II-XII intact Results Result Diagram: 05/16/1618 05/16/16 0618 Results 24 hrs Laboratory Tests Test 05/18/16 11:57 05/18/16 17:00 05/18/16 21:27 05/19/16 08:12 Bedside Glucose 120 99 115 175 Medications Medications Current Medications Ondansetron HCl (Zofran Tab) 4 mg Q6H PRN PO NAUSEA AND/OR VOMITING; Start at 14:30 Docusate Sodium (Colace) 100 mg Q12H PRN PO CONSTIPATION; Start 05/12/16 at 14: 30 Magnesium Hydroxide (Milk Of Mag) 30 ml DAILY PRN PO CONSTIPATION; Start at 14:30 Zolpidem Tartrate (Ambien) 5 mg QHS PRN PO SLEEP; Start 05/12/16 at 14:30 Heparin Sodium (Porcine) (Heparin (5000 Units/0.5 ml)) 5,000 unit Q12 SC Last administered on 05/18/16 21:34; Admin Dose 5,000 UNIT; Start 05/12/16 at 21:00 Acetaminophen (Tylenol Tab) 650 mg Q6H PRN PO PAIN AND OR ELEVATED TEMP; Start 05/13/16 at 00:00 Carvedilol (Coreg) 12.5 mg BID PO Last administered on 05/18/16 21:22; Admin Dose 12.5 MG; Start 05/13/16 at 09:00 Clonidine (Catapres) 0.1 mg TID PO Last administered on 05/17/16 12:33; Admin Dose 0.1 MG; Start 05/13/16 at 09:00 Epoetin Jordon (Epogen (Esrd)) 10,000 units MoWeFr@17 SC Last administered on 05/18 19:03; Admin Dose 10,000 UNITS; Start 05/13/16 at 17:00 Levalbuterol (Xopenex Hfa) 2 puff Q4H PRN INH WHEEZING AND SOB; Start 05/13/16 at 00:00 Minoxidil (Loniten) 5 mg BID PO Last administered on 05/18/16 09:16; Admin Dose 5 MG; Start 05/13/16 at 09:00 Nifedipine (Procardia Xl) 30 mg BID PO Last administered on 05/18/16 09:15; Admin Dose 30 MG; Start 05/13/16 at 09:00 Pantoprazole (Protonix Tab) 40 mg DAILY@06 PO Last administered on 05/19/16 06: 00; Admin Dose 40 MG; Start 05/13/16 at 06:00 Salmeterol Xinafoate/ Fluticasone (Advair 500/50 Diskus) 1 inh BID INH Last administered on 05/18/16 21:23; Admin Dose 1 INH; Start 05/13/16 at 09:00 Senna (Senokot) 1 tab DAILY PRN PO CONSTIPATION; Start 05/13/16 at 00:00 Tamsulosin HCl (Flomax) 0.4 mg HS PO Last administered on 05/18/16 21:20; Admin Dose 0.4 MG; Start 05/13/16 at 21:00 Tiotropium [place] (Spiriva) 1 inh BID INH Last administered on 05/18/16 21:39 ; Admin Dose 1 INH; Start 05/13/16 at 09:00 Valsartan (Diovan) 320 mg DAILY PO Last administered on 05/17/16 08:35; Admin Dose 320 MG; Start 05/13/16 at 09:00 Diagnostic Test (Pha) (Accucheck) 1 ea 02 XX Last administered on 05/13/16 02: 02; Admin Dose 1 EA; Start 05/13/16 at 02:00 Miscellaneous Information 1 ea NOTE XX ; Start 05/12/16 at 23:45 Glucose (Glutose) 15 gm Q15M PRN PO DECREASED GLUCOSE; Start 05/12/16 at 23:45 Glucose (Glutose) 22.5 gm Q15M PRN PO DECREASED GLUCOSE; Start 05/12/16 at 23: 45 Dextrose (D50w Syringe) 25 ml Q15M PRN IV DECREASED GLUCOSE; Start 05/12/16 at 23:45 Dextrose (D50w Syringe) 50 ml Q15M PRN IV DECREASED GLUCOSE; Start 05/12/16 at 23:45 Glucagon (Glucagen) 1 mg Q15M PRN IM DECREASED GLUCOSE; Start 05/12/16 at 23:45 Glucose (Glutose) 15 gm Q15M PRN BUCCAL DECREASED GLUCOSE; Start 05/12/16 at 23 :45 Multivit/Ca Carb/ B Cmplx/FA/Prenat 1 tab 1 tab DAILY PO Last administered on 09:17; Admin Dose 1 TAB; Start 05/15/16 at 09:00 Cefepime HCl (Maxipime 1gm/50 ml (Pmx)) 50 ml @ 100 mls/hr Q24H IVPB Last administered on 05/18/16 17:33; Admin Dose 100 MLS/HR; Start 05/15/16 at 16:00 Gentamicin Sulfate (Gentamicin Iv Per Pharmacy) GENTAMICIN PER PHARMACY NOTE XX ; Start 05/16/16 at 19:30 Fluconazole (Diflucan) 100 mg DAILY PO Last administered on 05/18/16 17:32; Admin Dose 100 MG; Start 05/18/16 at 17:00 Methylprednisolone Sodium Succinate (Solu-Medrol) 125 mg ONCE IM ; Start at 08:00; Stop 05/19/16 at 12:00 Methylprednisolone Sodium Succinate (Solu-Medrol) 60 mg ONCE IV ; Start 05/20/16 at 08:00; Stop 05/20/16 at 12:00 Procedures Procedures cxr 05/18 images reviewed reviewed improved interstitial edema. TATA CAVANAUGH May 19, 2016 08:36
[2016-05-19 08:38] LABS: HEMATOCRIT 36.6 % (42.0-52.0); MEAN CORPUSCULAR HEMOGLOBIN 29.1 pg (29.0-33.0); MEAN CORPUSCULAR HGB CONC 32.8 g/dl (32.0-37.0); MEAN CORPUSCULAR VOLUME 88.8 fl (82.0-101.0); MEAN PLATELET VOLUME 7.1 fl (7.4-10.4); PLATELET COUNT 499 10^3/UL (140-440); RED BLOOD COUNT 4.12 10^6/ul (4.70-6.10); RED CELL DISTRIBUTION WIDTH 17.1 % (11.5-14.5); UNCORRECTED WBC 24.2 10^3/ul (4.8-10.8); WHITE BLOOD COUNT 24.2 10^3/ul (4.8-10.8)
--- NOTE | 2016-05-19 08:38 | CONS ---
Date/Time of Note Date/Time of Note DATE: 05/19/16 TIME: 08:36 Assessment/Plan Assessment/Plan Additional Assessment/Plan 1. CHF resolving, now on HD 2. CKD, rev with family today (who translated for me) that important each dialysis session last 3 hours so fluid removal can be gentle and less often result on low blood pressure. 3. Pneumonia, abx per id (cxr noted) 4. DC per IM Consultation Date/Type/Reason Admit Date/Time May 12, 2016 at 09:46 Type of Consultation: Cardiology Referring Provider: HINA CASTILLO MD Detailed Summary Respiratory: shortness of breath (mild sob), No cough Cardiovascular: No chest pain Gastrointestinal: no complaints Genitourinary: no complaints Exam/Review of Systems Vital Signs Vitals Vital Signs Date Time Temp Pulse Resp B/P Pulse Ox O2 Delivery O2 Flow Rate FiO2 05/19/16 08:15 78 05/19/16 07:26 98.6 20 121/59 05/19/16 04:23 96 05/19/16 01:23 40 05/18/16 20:09 3.0 05/18/16 20:09 Nasal Cannula Intake and Output 05/18/16 05/18/16 05/19/16 15:00 23:00 07:00 Intake Total 700 ml 200 ml Balance 700 ml 200 ml Exam Neck: jvd Respiratory: diminished breath sounds (and few dry rales anterlol) Cardiovascular: regular rate and rhythm, No S3 Gastrointestinal: soft Extremities: No edema Results Result Diagram: 05/16/16 0618 05/16/16 0618 Results 24 hrs Laboratory Tests Test 05/18/16 11:57 05/18/16 17:00 05/18/16 21:27 05/19/16 08:12 Bedside Glucose 120 99 115 175 Medications Medications Current Medications Ondansetron HCl (Zofran Tab) 4 mg Q6H PRN PO NAUSEA AND/OR VOMITING; Start at 14:30 Docusate Sodium (Colace) 100 mg Q12H PRN PO CONSTIPATION; Start 05/12/16 at 14: 30 Magnesium Hydroxide (Milk Of Mag) 30 ml DAILY PRN PO CONSTIPATION; Start at 14:30 Zolpidem Tartrate (Ambien) 5 mg QHS PRN PO SLEEP; Start 05/12/16 at 14:30 Heparin Sodium (Porcine) (Heparin (5000 Units/0.5 ml)) 5,000 unit Q12 SC Last administered on 05/18/16 21:34; Admin Dose 5,000 UNIT; Start 05/12/16 at 21:00 Acetaminophen (Tylenol Tab) 650 mg Q6H PRN PO PAIN AND OR ELEVATED TEMP; Start 05/13/16 at 00:00 Carvedilol (Coreg) 12.5 mg BID PO Last administered on 05/18/16 21:22; Admin Dose 12.5 MG; Start 05/13/16 at 09:00 Clonidine (Catapres) 0.1 mg TID PO Last administered on 05/17/16 12:33; Admin Dose 0.1 MG; Start 05/13/16 at 09:00 Epoetin [place]ordon (Epogen (Esrd)) 10,000 units MoWeFr@17 SC Last administered on 05/18 19:03; Admin Dose 10,000 UNITS; Start 05/13/16 at 17:00 Levalbuterol (Xopenex Hfa) 2 puff Q4H PRN INH WHEEZING AND SOB; Start 05/13/16 at 00:00 Minoxidil (Loniten) 5 mg BID PO Last administered on 05/18/16 09:16; Admin Dose 5 MG; Start 05/13/16 at 09:00 Nifedipine (Procardia Xl) 30 mg BID PO Last administered on 05/18/16 09:15; Admin Dose 30 MG; Start 05/13/16 at 09:00 Pantoprazole (Protonix Tab) 40 mg DAILY@06 PO Last administered on 05/19/16 06: 00; Admin Dose 40 MG; Start 05/13/16 at 06:00 Salmeterol Xinafoate/ Fluticasone (Advair 500/50 Diskus) 1 inh BID INH Last administered on 05/18/16 21:23; Admin Dose 1 INH; Start 05/13/16 at 09:00 Senna (Senokot) 1 tab DAILY PRN PO CONSTIPATION; Start 05/13/16 at 00:00 Tamsulosin HCl (Flomax) 0.4 mg HS PO Last administered on 05/18/16 21:20; Admin Dose 0.4 MG; Start 05/13/16 at 21:00 Tiotropium [place] (Spiriva) 1 inh BID INH Last administered on 05/18/16 21:39 ; Admin Dose 1 INH; Start 05/13/16 at 09:00 Valsartan (Diovan) 320 mg DAILY PO Last administered on 05/17/16 08:35; Admin Dose 320 MG; Start 05/13/16 at 09:00 Diagnostic Test (Pha) (Accucheck) 1 ea 02 XX Last administered on 05/13/16 02: 02; Admin Dose 1 EA; Start 05/13/16 at 02:00 Miscellaneous Information 1 ea NOTE XX ; Start 05/12/16 at 23:45 Glucose (Glutose) 15 gm Q15M PRN PO DECREASED GLUCOSE; Start 05/12/16 at 23:45 Glucose (Glutose) 22.5 gm Q15M PRN PO DECREASED GLUCOSE; Start 05/12/16 at 23: 45 Dextrose (D50w Syringe) 25 ml Q15M PRN IV DECREASED GLUCOSE; Start 05/12/16 at 23:45 Dextrose (D50w Syringe) 50 ml Q15M PRN IV DECREASED GLUCOSE; Start 05/12/16 at 23:45 Glucagon (Glucagen) 1 mg Q15M PRN IM DECREASED GLUCOSE; Start 05/12/16 at 23:45 Glucose (Glutose) 15 gm Q15M PRN BUCCAL DECREASED GLUCOSE; Start 05/12/16 at 23 :45 Multivit/Ca Carb/ B Cmplx/FA/Prenat 1 tab 1 tab DAILY PO Last administered on 09:17; Admin Dose 1 TAB; Start 05/15/16 at 09:00 Cefepime HCl (Maxipime 1gm/50 ml (Pmx)) 50 ml @ 100 mls/hr Q24H IVPB Last administered on 05/18/16 17:33; Admin Dose 100 MLS/HR; Start 05/15/16 at 16:00 Gentamicin Sulfate (Gentamicin Iv Per Pharmacy) GENTAMICIN PER PHARMACY NOTE XX ; Start 05/16/16 at 19:30 Fluconazole (Diflucan) 100 mg DAILY PO Last administered on 05/18/16 17:32; Admin Dose 100 MG; Start 05/18/16 at 17:00 Methylprednisolone Sodium Succinate (Solu-Medrol) 125 mg ONCE IM ; Start at 08:00; Stop 05/19/16 at 12:00 Methylprednisolone Sodium Succinate (Solu-Medrol) 60 mg ONCE IV ; Start 05/20/16 at 08:00; Stop 05/20/16 at 12:00 TRUE GTZ MD May 19, 2016 08:38
[2016-05-19 08:39] LABS: CREATININE 4.14 mg/dl (0.61-1.24)
[2016-05-19 08:40] LABS: CALCIUM 9.2 mg/dl (8.4-10.2); PHOSPHORUS 2.3 mg/dl (2.5-4.9)
[2016-05-19 08:57] LABS: CONDITION 1; LH ANALYZER COMMENTS 1; SUSPECT 1
[2016-05-19] MEDS: VALSARTAN 160 MG TAB PO SCH (09:00)
[2016-05-19] MEDS: TIOTROPIUM 18 MCG CAPSULE INHA DEV INH SCH ×2 (09:21→21:00)
[2016-05-19] MEDS: SALMETEROL/FLUTICASONE 500/50 INHA INH SCH ×2 (09:22→21:12)
[2016-05-19] MEDS: CALCIUM ACETATE 667 MG CAP PO SCH ×3 (09:22→17:22)
[2016-05-19] MEDS: MINOXIDIL 2.5 MG TAB PO SCH ×2 (09:23→21:00)
[2016-05-19] MEDS: MULTIVIT/CA CARB/B CMPLX/FA TAB PO SCH (09:23)
[2016-05-19] MEDS: FLUCONAZOLE 100 MG TAB PO SCH (09:24)
[2016-05-19] MEDS: NIFEdipine (XL) 30 MG TAB PO SCH ×2 (09:24→21:00)
[2016-05-19] MEDS: INSULIN ASPART [NOVOLOG] 3 ML PEN SC SCH ×4 (09:25→21:21)
[2016-05-19] MEDS: HEPARIN 5,000 UNIT/0.5 ML SYG SC SCH ×2 (09:31→21:25)
--- NOTE | 2016-05-19 10:16 | CONS ---
Date/Time of Note Date/Time of Note DATE: 05/19/16 TIME: 10:16 Assessment/Plan Assessment/Plan Chief Complaint/Hosp Course Anemia - CHRONIC, MULTIFACTORIAL WITH COMPONENT ACD AND IRON DEFICIENCY CONT TO MONITOR BLOOD COUNT CLOSELY OBSERVE FOR BLEEDING AND HEMOLYSIS TRANSFUSE NEEDED EPO WITH HD Acute respiratory failure.- PER PULM AND NEPHRO Pneumonia End-stage renal disease, hemodialysis dependent. Right chest Perm-A-Cath. Chronic obstructive pulmonary disease exacerbation. Problems: Consultation Date/Type/Reason Admit Date/Time May 12, 2016 at 09:46 Initial Consult Date 05.12.16 Type of Consultation: hemeonc Referring Provider: HINA CASTILLO MD 24 HR Interval Summary Free Text/Dictation ALL NOTED NO NEW EVENTS + SOB Exam/Review of Systems Vital Signs Vitals Vital Signs Date Time Temp Pulse Resp B/P Pulse Ox O2 Delivery O2 Flow Rate FiO2 05/19/16 09:15 79 05/19/16 08:51 94 3.0 05/19/16 08:50 20 Nasal Cannula 05/19/16 07:26 98.6 121/59 05/19/16 01:23 40 Intake and Output 05/18/16 05/18/16 05/19/16 15:00 23:00 07:00 Intake Total 700 ml 200 ml Balance 700 ml 200 ml Exam Constitutional: alert, frail, No well developed Psych: anxiety, depression, no complaints Head: normocephalic Eyes: nl conjunctiva ENMT: nl external ears & nose Neck: jvd, supple Respiratory: congested cough Cardiovascular: other, regular rate and rhythm, systolic murmur, No edema Gastrointestinal: nl liver, spleen, soft Musculoskeletal: nl extremities to inspection Results Result Diagram: 05/19/16 0740 05/19/16 0740 Results 24 hrs Laboratory Tests Test 05/18/16 11:57 05/18/16 17:00 05/18/16 21:27 05/19/16 07:40 Bedside Glucose 120 99 115 Anion Gap 21 H Basophils # Pending Basophils % Pending Blood Morphology Comment Blood Urea Nitrogen 49 H Calcium Level 9.2 Carbon Dioxide Level 27 Chloride Level 95 L Creatinine 4.14 H Eosinophils # Pending Eosinophils % Pending Glucose Level 189 Hematocrit 36.6 L Hemoglobin 12.0 L Lymphocytes # Pending Lymphocytes % Pending Mean Corpuscular Hemoglobin 29.1 Mean Corpuscular Hemoglobin Concent 32.8 Mean Corpuscular Volume 88.8 Mean Platelet Volume 7.1 #L Monocytes # Pending Monocytes % Pending Neutrophils # Pending Neutrophils % Pending Nucleated Red Blood Cells # Pending Nucleated Red Blood Cells % Pending Phosphorus Level 2.3 L Platelet Count 499 H Potassium Level 4.2 Red Blood Count 4.12 L Red Cell Distribution Width 17.1 H Sodium Level 139 White Blood Count 24.2 #H Test 05/19/16 08:12 Bedside Glucose 175 Medications Medications Current Medications Ondansetron HCl (Zofran Tab) 4 mg Q6H PRN PO NAUSEA AND/OR VOMITING; Start at 14:30 Docusate Sodium (Colace) 100 mg Q12H PRN PO CONSTIPATION; Start 05/12/16 at 14: 30 Magnesium Hydroxide (Milk Of Mag) 30 ml DAILY PRN PO CONSTIPATION; Start at 14:30 Zolpidem Tartrate (Ambien) 5 mg QHS PRN PO SLEEP; Start 05/12/16 at 14:30 Heparin Sodium (Porcine) (Heparin (5000 Units/0.5 ml)) 5,000 unit Q12 SC Last administered on 05/19/16 09:31; Admin Dose 5,000 UNIT; Start 05/12/16 at 21:00 Acetaminophen (Tylenol Tab) 650 mg Q6H PRN PO PAIN AND OR ELEVATED TEMP; Start 05/13/16 at 00:00 Carvedilol (Coreg) 12.5 mg BID PO Last administered on 05/18/16 21:22; Admin Dose 12.5 MG; Start 05/13/16 at 09:00 Clonidine (Catapres) 0.1 mg TID PO Last administered on 05/17/16 12:33; Admin Dose 0.1 MG; Start 05/13/16 at 09:00 Epoetin Jordon (Epogen (Esrd)) 10,000 units MoWeFr@17 SC Last administered on 05/18 19:03; Admin Dose 10,000 UNITS; Start 05/13/16 at 17:00 Levalbuterol (Xopenex Hfa) 2 puff Q4H PRN INH WHEEZING AND SOB; Start 05/13/16 at 00:00 Minoxidil (Loniten) 5 mg BID PO Last administered on 05/19/16 09:23; Admin Dose 5 MG; Start 05/13/16 at 09:00 Nifedipine (Procardia Xl) 30 mg BID PO Last administered on 05/19/16 09:24; Admin Dose 30 MG; Start 05/13/16 at 09:00 Pantoprazole (Protonix Tab) 40 mg DAILY@06 PO Last administered on 05/19/16 06: 00; Admin Dose 40 MG; Start 05/13/16 at 06:00 Salmeterol Xinafoate/ Fluticasone (Advair 500/50 Diskus) 1 inh BID INH Last administered on 05/19/16 09:22; Admin Dose 1 INH; Start 05/13/16 at 09:00 Senna (Senokot) 1 tab DAILY PRN PO CONSTIPATION; Start 05/13/16 at 00:00 Tamsulosin HCl (Flomax) 0.4 mg HS PO Last administered on 05/18/16 21:20; Admin Dose 0.4 MG; Start 05/13/16 at 21:00 Tiotropium [place] (Spiriva) 1 inh BID INH Last administered on 05/19/16 09:21 ; Admin Dose 1 INH; Start 05/13/16 at 09:00 Valsartan (Diovan) 320 mg DAILY PO Last administered on 05/17/16 08:35; Admin Dose 320 MG; Start 05/13/16 at 09:00 Diagnostic Test (Pha) (Accucheck) 1 ea 02 XX Last administered on 05/13/16 02: 02; Admin Dose 1 EA; Start 05/13/16 at 02:00 Miscellaneous Information 1 ea NOTE XX ; Start 05/12/16 at 23:45 Glucose (Glutose) 15 gm Q15M PRN PO DECREASED GLUCOSE; Start 05/12/16 at 23:45 Glucose (Glutose) 22.5 gm Q15M PRN PO DECREASED GLUCOSE; Start 05/12/16 at 23: 45 Dextrose (D50w Syringe) 25 ml Q15M PRN IV DECREASED GLUCOSE; Start 05/12/16 at 23:45 Dextrose (D50w Syringe) 50 ml Q15M PRN IV DECREASED GLUCOSE; Start 05/12/16 at 23:45 Glucagon (Glucagen) 1 mg Q15M PRN IM DECREASED GLUCOSE; Start 05/12/16 at 23:45 Glucose (Glutose) 15 gm Q15M PRN BUCCAL DECREASED GLUCOSE; Start 05/12/16 at 23 :45 Multivit/Ca Carb/ B Cmplx/FA/Prenat 1 tab 1 tab DAILY PO Last administered on 09:23; Admin Dose 1 TAB; Start 05/15/16 at 09:00 Cefepime HCl (Maxipime 1gm/50 ml (Pmx)) 50 ml @ 100 mls/hr Q24H IVPB Last administered on 05/18/16 17:33; Admin Dose 100 MLS/HR; Start 05/15/16 at 16:00 Gentamicin Sulfate (Gentamicin Iv Per Pharmacy) GENTAMICIN PER PHARMACY NOTE XX ; Start 05/16/16 at 19:30 Fluconazole (Diflucan) 100 mg DAILY PO Last administered on 05/19/16 09:24; Admin Dose 100 MG; Start 05/18/16 at 17:00 Methylprednisolone Sodium Succinate (Solu-Medrol) 125 mg ONCE IM Last administered on 05/19/16 09:37; Admin Dose 125 MG; Start 05/19/16 at 08:00; Stop 05/19/16 at 12:00 Methylprednisolone Sodium Succinate (Solu-Medrol) 60 mg ONCE IV ; Start 05/20/16 at 08:00; Stop 05/20/16 at 12:00 ANDRE SMITH MD May 19, 2016 10:16
[2016-05-19] MEDS: LEVOTHYROXINE 125 MCG TAB PO SCH (10:24)
[2016-05-19 10:51] LABS: NEUTROPHIL # 22.3 10^3/ul (1.6-7.5)
[2016-05-19] MEDS ORDERED: METHYLPREDNISOLONE 125 MG INJ IV SCH (14:00)
--- NOTE | 2016-05-19 14:12 | CONS ---
Date/Time of Note Date/Time of Note DATE: 05/19/16 TIME: 14:05 Assessment/Plan Assessment/Plan Additional Assessment/Plan Serial chest x-rays were reviewed x-ray from first of this month showing significant bilateral pulmonary edema and chest x-ray was reviewed from yesterday which is showing marked improvement. There is a hemodialysis catheter in the right subclavian area. Mild thyromegaly is present. Yesterday show a spike in white cell count likely attributed to systemic steroid treatment. Sputum is showing pseudomonas aeruginosa and Moraxella catarrhalis. Assessment and recommendations; 1. Patient admitted with shortness of breath due to congestive heart failure exacerbation. With significant clinical and radiological improvement. 2. Multiple other comorbidities which all appear fairly stable at this point. 3. Leukocytosis likely from systemic steroid treatment. Continue current treatment for now but discontinue further Solu-Medrol dosing. Will follow the patient with you. Consultation Date/Type/Reason Admit Date/Time May 12, 2016 at 09:46 Date of Consultation: May 19, 2016 Type of Consultation: Pulmonary Reason for Consultation 81-year-old white male admitted on the of last month with complaints of shortness of breath going on for the last few days prior to presentation. History presenting illness; vision admitted on of last with complaints of shortness of breath for evaluation of chest x-ray was done which showed pulmonary edema the patient was started on antibiotics as well as bronchodilators and systemic steroids with significant improvement in symptomatology. According to to him he got sick over the last day or 2 prior to admission to the hospital. Denies any high fever, chills, sore throat or any body aches or myalgias to suggest any viral illness. Over the last 1 week the patient is feeling much better now denies any wheezing, shortness of breath and improved. Planes of scant cough with scant sputum production. Denies any hemoptysis. Next Past medical history 1. Hypertension. 2. End-stage renal disease. 3. BPH. 4. Hypothyroidism. 5. Coronary artery disease . 6. Possibly underlying COPD as well. 7. Diabetes. Medications; were reviewed. Allergies; R none next Social history; patient quit smoking 37 years ago. No history of alcohol or drug abuse. Family history; patient is he has a supportive family. 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 Review of systems; denies any headache, seizures, visual changes, hearing loss. Denies any sinus symptoms postnasal drip. Denies any dysphagia. Any chest pain, any wheezing. Complains of scant cough with scant sputum production. Denies any hemoptysis. Denies any orthopnea. Lower extremity edema. Any melena or hematochezia. Patient has gained some weight. Complaint of dyspnea on exertion which is a chronic complaint. General examination elderly male currently in no distress awake and alert laying flat in bed. Constitutional: chills, diaphoresis, disoriented, poor po, requiring O2, No febrile, No improved, No no complaints, No other, No requiring IVF Eyes: redness, visual change, No discharge, No no complaints, No other, No pain ENT: no complaints Respiratory: shortness of breath (mild sob), No cough Cardiovascular: No chest pain Gastrointestinal: no complaints Genitourinary: no complaints Musculoskeletal: back pain, bone/joint pain, neck pain, No no complaints, No other, No restricted range of motion, No swelling Skin: pruritis, No bruising, No erythema, No laceration, No no complaints, No other, No rash , No skin lesions Neurologic: No confusion, No dizziness, No focal-weakness, No headache, No no complaints, No other, No seizure, No syncope Endocrine: No dry skin, No no complaints, No other, No polydypsia, No polyuria , No temp intolerance Lymphatic: No adenopathy, No lymphadema, No no complaints, No other, No tender nodes Psychological: anxiety, confusion, depression, No nl mood/affect, No no complaints, No other, No suicidal Immunologic: pruritis, No immunodeficiency, No no complaints, No other, No rhinitis, No urticaria Past Medical History Medical History: angina, congestive heart failure, coronary artery disease, diabetes, GERD, high cholesterol, hypertension, renal disease, urinary tract infection Past Surgical History Past Surgical Hx: angioplasty, coronary bypass surgery, endoscopy, other Social History Alcohol Use: rarely Smoking Status: Former smoker Drug Use: none Exam/Review of Systems Vital Signs Vitals Vital Signs Date Time Temp Pulse Resp B/P Pulse Ox O2 Delivery O2 Flow Rate FiO2 05/19/16 13:33 96 3.0 05/19/16 13:32 87 20 Nasal Cannula 05/19/16 11:22 98.5 119/60 05/19/16 01:23 40 Intake and Output 05/18/16 05/18/16 05/19/16 15:00 23:00 07:00 Intake Total 700 ml 200 ml Balance 700 ml 200 ml Exam HEENT examination; supple neck, no JVD. No lymphadenopathy. No thyromegaly. Pupils are midsize reactive to light bilaterally and equally, extraocular movements are intact. Pharynx is clear. Patient is edentulous. Chest examination; diminished but clear breath sounds bilaterally. S1-S2 audible, no murmurs. Regular rhythm. Abdomen examination; soft, protuberant. No organomegaly. Bowel sounds audible. Extremity examination; no peripheral edema. Pulses 1+ bilaterally. No clubbing. SOFTWARE MANAGER examination; no focal deficit. Results Result Diagram: 05/19/16 0740 05/19/16 0740 Results 24 hrs Laboratory Tests Test 05/18/16 17:00 05/18/16 21:27 05/19/16 07:40 05/19/16 08:12 Bedside Glucose 99 115 175 Anion Gap 21 H Band Neutrophils % 1.0 Basophils # Basophils % Blood Morphology Comment Blood Urea Nitrogen 49 H Calcium Level 9.2 Carbon Dioxide Level 27 Chloride Level 95 L Creatinine 4.14 H Differential Comment MANUAL DIFF Eosinophils # Eosinophils % Glucose Level 189 Hematocrit 36.6 L Hemoglobin 12.0 L Lymphocytes # 1.0 Lymphocytes % 4.0 L Mean Corpuscular Hemoglobin 29.1 Mean Corpuscular Hemoglobin Concent 32.8 Mean Corpuscular Volume 88.8 Mean Platelet Volume 7.1 #L Metamyelocytes # 0.5 Metamyelocytes % 2.0 H Monocytes # Monocytes % Neutrophils # 22.3 H Neutrophils % 92.0 H Nucleated Red Blood Cells # Nucleated Red Blood Cells % Phosphorus Level 2.3 L Platelet Count 499 H Potassium Level 4.2 Promyelocytes # 0.2 Promyelocytes % 1.0 H Red Blood Count 4.12 L Red Cell Distribution Width 17.1 H Sodium Level 139 White Blood Count 24.2 #H Test 05/19/16 12:09 Bedside Glucose 183 Medications Medications Current Medications Ondansetron HCl (Zofran Tab) 4 mg Q6H PRN PO NAUSEA AND/OR VOMITING; Start at 14:30 Docusate Sodium (Colace) 100 mg Q12H PRN PO CONSTIPATION; Start 05/12/16 at 14: 30 Magnesium Hydroxide (Milk Of Mag) 30 ml DAILY PRN PO CONSTIPATION; Start at 14:30 Zolpidem Tartrate (Ambien) 5 mg QHS PRN PO SLEEP; Start 05/12/16 at 14:30 Heparin Sodium (Porcine) (Heparin (5000 Units/0.5 ml)) 5,000 unit Q12 SC Last administered on 05/19/16 09:31; Admin Dose 5,000 UNIT; Start 05/12/16 at 21:00 Acetaminophen (Tylenol Tab) 650 mg Q6H PRN PO PAIN AND OR ELEVATED TEMP; Start 05/13/16 at 00:00 Carvedilol (Coreg) 12.5 mg BID PO Last administered on 05/18/16 21:22; Admin Dose 12.5 MG; Start 05/13/16 at 09:00 Clonidine (Catapres) 0.1 mg TID PO Last administered on 05/17/16 12:33; Admin Dose 0.1 MG; Start 05/13/16 at 09:00 Epoetin Jordon (Epogen (Esrd)) 10,000 units MoWeFr@17 SC Last administered on 05/18 19:03; Admin Dose 10,000 UNITS; Start 05/13/16 at 17:00 Levalbuterol (Xopenex Hfa) 2 puff Q4H PRN INH WHEEZING AND SOB; Start 05/13/16 at 00:00 Minoxidil (Loniten) 5 mg BID PO Last administered on 05/19/16 09:23; Admin Dose 5 MG; Start 05/13/16 at 09:00 Nifedipine (Procardia Xl) 30 mg BID PO Last administered on 05/19/16 09:24; Admin Dose 30 MG; Start 05/13/16 at 09:00 Pantoprazole (Protonix Tab) 40 mg DAILY@06 PO Last administered on 05/19/16 06: 00; Admin Dose 40 MG; Start 05/13/16 at 06:00 Salmeterol Xinafoate/ Fluticasone (Advair 500/50 Diskus) 1 inh BID INH Last administered on 05/19/16 09:22; Admin Dose 1 INH; Start 05/13/16 at 09:00 Senna (Senokot) 1 tab DAILY PRN PO CONSTIPATION; Start 05/13/16 at 00:00 Tamsulosin HCl (Flomax) 0.4 mg HS PO Last administered on 05/18/16 21:20; Admin Dose 0.4 MG; Start 05/13/16 at 21:00 Tiotropium [place] (Spiriva) 1 inh BID INH Last administered on 05/19/16 09:21 ; Admin Dose 1 INH; Start 05/13/16 at 09:00 Valsartan (Diovan) 320 mg DAILY PO Last administered on 05/17/16 08:35; Admin Dose 320 MG; Start 05/13/16 at 09:00 Diagnostic Test (Pha) (Accucheck) 1 ea 02 XX Last administered on 05/13/16 02: 02; Admin Dose 1 EA; Start 05/13/16 at 02:00 Miscellaneous Information 1 ea NOTE XX ; Start 05/12/16 at 23:45 Glucose (Glutose) 15 gm Q15M PRN PO DECREASED GLUCOSE; Start 05/12/16 at 23:45 Glucose (Glutose) 22.5 gm Q15M PRN PO DECREASED GLUCOSE; Start 05/12/16 at 23: 45 Dextrose (D50w Syringe) 25 ml Q15M PRN IV DECREASED GLUCOSE; Start 05/12/16 at 23:45 Dextrose (D50w Syringe) 50 ml Q15M PRN IV DECREASED GLUCOSE; Start 05/12/16 at 23:45 Glucagon (Glucagen) 1 mg Q15M PRN IM DECREASED GLUCOSE; Start 05/12/16 at 23:45 Glucose (Glutose) 15 gm Q15M PRN BUCCAL DECREASED GLUCOSE; Start 05/12/16 at 23 :45 Multivit/Ca Carb/ B Cmplx/FA/Prenat 1 tab 1 tab DAILY PO Last administered on 09:23; Admin Dose 1 TAB; Start 05/15/16 at 09:00 Cefepime HCl (Maxipime 1gm/50 ml (Pmx)) 50 ml @ 100 mls/hr Q24H IVPB Last administered on 05/18/16 17:33; Admin Dose 100 MLS/HR; Start 05/15/16 at 16:00 Gentamicin Sulfate (Gentamicin Iv Per Pharmacy) GENTAMICIN PER PHARMACY NOTE XX ; Start 05/16/16 at 19:30 Fluconazole (Diflucan) 100 mg DAILY PO Last administered on 05/19/16t 09:24; Admin Dose 100 MG; Start 05/18/16 at 17:00 NADER ANNE May 19, 2016 14:12
[2016-05-19] MEDS: CEFEPIME 1GM/50 ML (PMX) 50 ML IVPB SCH (15:56)
[2016-05-19] MEDS: GENTAMICIN 80 MG/NS (PMX) 50 ML IVPB SCH (16:29)
[2016-05-19] MEDS: TAMSULOSIN (SR) 0.4 MG CAP PO SCH (21:12)
--- NOTE | 2016-05-19 22:48 | CONS ---
Date/Time of Note Date/Time of Note DATE: 05/19/16 TIME: 12:15 Assessment/Plan Assessment/Plan Chief Complaint/Hosp Course SUBJECTIVE: Awake, comfortable on nasal cannula. No fevers. MICROBIOLOGY: Sputum culture growing Branhamella catarrhalis and PSA. ANTIMICROBIALS: The patient is on Diflucan, Cefepime and Gentamicin. OBJECTIVE: GENERAL: This is a well-developed, fragile, elderly man who is in no distress. HEENT: Head atraumatic, normocephalic. Sclerae anicteric. Buccal mucosa dry. NECK: Supple, trachea midline. CHEST: Rise symmetrical. Breath sounds diminished to bases. HEART: S1, S2. ABDOMEN: Soft, bowel tones present. EXTREMITIES: Without cyanosis. ASSESSMENT: 1. S/p acute respiratory failure. 2. Pneumonia with sputum culture growing Branhamella catarrhalis/PSA. 3. End-stage renal disease, hemodialysis dependent. 4. Right chest Perm-A-Cath. 5. Anemia. 6. Chronic obstructive pulmonary disease exacerbation. 7. Leukocytosis==> steroids induced PLAN: The patient remains stable. Change Diflucan to Vfend, HD per renal DW staff Problems: Consultation Date/Type/Reason Admit Date/Time May 12, 2016 at 09:46 Type of Consultation: ID Referring Provider: HINA CASTILLO MD Exam/Review of Systems Vital Signs Vitals Vital Signs Date Time Temp Pulse Resp B/P Pulse Ox O2 Delivery O2 Flow Rate FiO2 05/19/16 20:36 80 05/19/16 20:06 98.1 20 145/67 96 05/19/16 19:41 Nasal Cannula 3.0 05/19/16 01:23 40 Intake and Output 05/18/16 05/18/16 05/19/16 15:00 23:00 07:00 Intake Total 700 ml 200 ml Balance 700 ml 200 ml Results Result Diagram: 05/19/16 0740 05/19/16 0740 Results 24 hrs Laboratory Tests Test 05/19/16 07:40 05/19/16 08:12 05/19/16 12:09 05/19/16 17:18 Anion Gap 21 H Band Neutrophils % 1.0 Basophils # Basophils % Blood Morphology Comment Blood Urea Nitrogen 49 H Calcium Level 9.2 Carbon Dioxide Level 27 Chloride Level 95 L Creatinine 4.14 H Differential Comment MANUAL DIFF Eosinophils # Eosinophils % Glucose Level 189 Hematocrit 36.6 L Hemoglobin 12.0 L Lymphocytes # 1.0 Lymphocytes % 4.0 L Mean Corpuscular Hemoglobin 29.1 Mean Corpuscular Hemoglobin Concent 32.8 Mean Corpuscular Volume 88.8 Mean Platelet Volume 7.1 #L Metamyelocytes # 0.5 Metamyelocytes % 2.0 H Monocytes # Monocytes % Neutrophils # 22.3 H Neutrophils % 92.0 H Nucleated Red Blood Cells # Nucleated Red Blood Cells % Phosphorus Level 2.3 L Platelet Count 499 H Potassium Level 4.2 Promyelocytes # 0.2 Promyelocytes % 1.0 H Red Blood Count 4.12 L Red Cell Distribution Width 17.1 H Sodium Level 139 White Blood Count 24.2 #H Bedside Glucose 175 183 211 Test 05/19/16 21:08 Bedside Glucose 203 Medications Medications Current Medications Ondansetron HCl (Zofran Tab) 4 mg Q6H PRN PO NAUSEA AND/OR VOMITING; Start at 14:30 Docusate Sodium (Colace) 100 mg Q12H PRN PO CONSTIPATION; Start 05/12/16 at 14: 30 Magnesium Hydroxide (Milk Of Mag) 30 ml DAILY PRN PO CONSTIPATION; Start at 14:30 Zolpidem Tartrate (Ambien) 5 mg QHS PRN PO SLEEP; Start 05/12/16 at 14:30 Heparin Sodium (Porcine) (Heparin (5000 Units/0.5 ml)) 5,000 unit Q12 SC Last administered on 05/19/16 21:25; Admin Dose 5,000 UNIT; Start 05/12/16 at 21:00 Acetaminophen (Tylenol Tab) 650 mg Q6H PRN PO PAIN AND OR ELEVATED TEMP; Start 05/13/16 at 00:00 Carvedilol (Coreg) 12.5 mg BID PO Last administered on 05/19/16 21:12; Admin Dose 12.5 MG; Start 05/13/16 at 09:00 Clonidine (Catapres) 0.1 mg TID PO Last administered on 05/17/16 12:33; Admin Dose 0.1 MG; Start 05/13/16 at 09:00 Epoetin [place] (Epogen (Esrd)) 10,000 units MoWeFr@17 SC Last administered on 05/18 19:03; Admin Dose 10,000 UNITS; Start 05/13/16 at 17:00 Levalbuterol (Xopenex Hfa) 2 puff Q4H PRN INH WHEEZING AND SOB; Start 05/13/16 at 00:00 Minoxidil (Loniten) 5 mg BID PO Last administered on 05/19/16 09:23; Admin Dose 5 MG; Start 05/13/16 at 09:00 Nifedipine (Procardia Xl) 30 mg BID PO Last administered on 05/19/16 09:24; Admin Dose 30 MG; Start 05/13/16 at 09:00 Pantoprazole (Protonix Tab) 40 mg DAILY@06 PO Last administered on 05/19/16 06: 00; Admin Dose 40 MG; Start 05/13/16 at 06:00 Salmeterol Xinafoate/ Fluticasone (Advair 500/50 Diskus) 1 inh BID INH Last administered on 05/19/16 21:12; Admin Dose 1 INH; Start 05/13/16 at 09:00 Senna (Senokot) 1 tab DAILY PRN PO CONSTIPATION; Start 05/13/16 at 00:00 Tamsulosin HCl (Flomax) 0.4 mg HS PO Last administered on 05/19/16 21:12; Admin Dose 0.4 MG; Start 05/13/16 at 21:00 Tiotropium [place] (Spiriva) 1 inh BID INH Last administered on 05/19/16 09:21 ; Admin Dose 1 INH; Start 05/13/16 at 09:00 Valsartan (Diovan) 320 mg DAILY PO Last administered on 05/17/16 08:35; Admin Dose 320 MG; Start 05/13/16 at 09:00 Diagnostic Test (Pha) (Accucheck) 1 ea 02 XX Last administered on 05/13/16 02: 02; Admin Dose 1 EA; Start 05/13/16 at 02:00 Miscellaneous Information 1 ea NOTE XX ; Start 05/12/16 at 23:45 Glucose (Glutose) 15 gm Q15M PRN PO DECREASED GLUCOSE; Start 05/12/16 at 23:45 Glucose (Glutose) 22.5 gm Q15M PRN PO DECREASED GLUCOSE; Start 05/12/16 at 23: 45 Dextrose (D50w Syringe) 25 ml Q15M PRN IV DECREASED GLUCOSE; Start 05/12/16 at 23:45 Dextrose (D50w Syringe) 50 ml Q15M PRN IV DECREASED GLUCOSE; Start 05/12/16 at 23:45 Glucagon (Glucagen) 1 mg Q15M PRN IM DECREASED GLUCOSE; Start 05/12/16 at 23:45 Glucose (Glutose) 15 gm Q15M PRN BUCCAL DECREASED GLUCOSE; Start 05/12/16 at 23 :45 Multivit/Ca Carb/ B Cmplx/FA/Prenat 1 tab 1 tab DAILY PO Last administered on 09:23; Admin Dose 1 TAB; Start 05/15/16 at 09:00 Cefepime HCl (Maxipime 1gm/50 ml (Pmx)) 50 ml @ 100 mls/hr Q24H IVPB Last administered on 05/19/16 15:56; Admin Dose 100 MLS/HR; Start 05/15/16 at 16:00 Gentamicin Sulfate (Gentamicin Iv Per Pharmacy) GENTAMICIN PER PHARMACY NOTE XX ; Start 05/16/16 at 19:30 Fluconazole (Diflucan) 100 mg DAILY PO Last administered on 05/19/16 09:24; Admin Dose 100 MG; Start 05/18/16 at 17:00 TRISH CUELLO NP May 19, 2016 22:48
[2016-05-20] VITALS (14 sets, daily range): BP systolic 121–132; BP diastolic 58–61; PULSE 66–86; RESP 17–23
[2016-05-20] MEDS: ALBUTEROL 0.5% (NEB) 2.5 MG/0.5 ML AMP NEB SCH ×4 (01:36→19:41)
[2016-05-20] MEDS: IPRATROPIUM (NEB) 0.5 MG/2.5 ML AMP NEB SCH ×4 (01:36→19:41)
[2016-05-20] MEDS: ACCUCHECK XX SCH (02:00)
[2016-05-20] MEDS: LEVOTHYROXINE 125 MCG TAB PO SCH (06:20)
[2016-05-20] MEDS: PANTOPRAZOLE (EC) 40 MG TAB PO SCH (06:20)
[2016-05-20] MEDS ORDERED: METHYLPREDNISOLONE 125 MG INJ IV ONE (08:00)
[2016-05-20] MEDS ORDERED: METHYLPREDNISOLONE 125 MG INJ IV SCH (08:00)
[2016-05-20] MEDS: INSULIN ASPART [NOVOLOG] 3 ML PEN SC SCH ×4 (08:21→20:57)
[2016-05-20] MEDS: MULTIVIT/CA CARB/B CMPLX/FA TAB PO SCH (08:21)
[2016-05-20] MEDS: SALMETEROL/FLUTICASONE 500/50 INHA INH SCH ×2 (08:22→20:54)
[2016-05-20] MEDS: CALCIUM ACETATE 667 MG CAP PO SCH ×3 (08:22→17:48)
[2016-05-20] MEDS: VORICONAZOLE 200 MG TAB PO SCH ×2 (08:22→20:59)
[2016-05-20] MEDS: NIFEdipine (XL) 30 MG TAB PO SCH ×2 (08:23→21:01)
[2016-05-20] MEDS: HEPARIN 5,000 UNIT/0.5 ML SYG SC SCH ×2 (08:35→20:57)
[2016-05-20] MEDS: VALSARTAN 160 MG TAB PO SCH (08:36)
[2016-05-20] MEDS: MINOXIDIL 2.5 MG TAB PO SCH ×2 (08:36→21:00)
--- NOTE | 2016-05-20 08:39 | CONS ---
Date/Time of Note Date/Time of Note DATE: 05/20/16 TIME: 08:32 Assessment/Plan Assessment/Plan Additional Assessment/Plan 1. CKD with next HD tomm 2. Elev wbc noted, was given steroids 3. BP is controlled 4. Pneumonia, abx per id Consultation Date/Type/Reason Admit Date/Time May 12, 2016 at 09:46 Type of Consultation: ID Referring Provider: HINA CASTILLO MD Detailed Summary Respiratory: shortness of breath (is unchanged) Cardiovascular: No chest pain Gastrointestinal: no complaints Genitourinary: no complaints Exam/Review of Systems Vital Signs Vitals Vital Signs Date Time Temp Pulse Resp B/P Pulse Ox O2 Delivery O2 Flow Rate FiO2 05/20/16 07:19 97.9 67 18 131/60 97 05/20/16 04:12 40 05/19/16 20:00 Nasal Cannula 3.0 Intake and Output 05/19/16 05/19/16 05/20/16 15:00 23:00 07:00 Intake Total 200 ml 100 ml 150 ml Output Total 3200 ml Balance -3000 ml 100 ml 150 ml Exam Neck: No jvd Respiratory: clear to auscultation Cardiovascular: regular rate and rhythm Gastrointestinal: soft Extremities: No edema Results Result Diagram: 05/19/16 0740 05/19/16 0740 Results 24 hrs Laboratory Tests Test 05/19/16 12:09 05/19/16 17:18 05/19/16 21:08 05/20/16 08:03 Bedside Glucose 183 211 203 151 Medications Medications Current Medications Ondansetron HCl (Zofran Tab) 4 mg Q6H PRN PO NAUSEA AND/OR VOMITING; Start at 14:30 Docusate Sodium (Colace) 100 mg Q12H PRN PO CONSTIPATION; Start 05/12/16 at 14: 30 Magnesium Hydroxide (Milk Of Mag) 30 ml DAILY PRN PO CONSTIPATION; Start at 14:30 Zolpidem Tartrate (Ambien) 5 mg QHS PRN PO SLEEP; Start 05/12/16 at 14:30 Heparin Sodium (Porcine) (Heparin (5000 Units/0.5 ml)) 5,000 unit Q12 SC Last administered on 05/19/16t 21:25; Admin Dose 5,000 UNIT; Start 05/12/16 at 21:00 Acetaminophen (Tylenol Tab) 650 mg Q6H PRN PO PAIN AND OR ELEVATED TEMP; Start 05/13/16 at 00:00 Carvedilol (Coreg) 12.5 mg BID PO Last administered on 05/19/16 21:12; Admin Dose 12.5 MG; Start 05/13/16 at 09:00 Clonidine (Catapres) 0.1 mg TID PO Last administered on 05/17/16 12:33; Admin Dose 0.1 MG; Start 05/13/16 at 09:00 Epoetin [place] (Epogen (Esrd)) 10,000 units MoWeFr@17 SC Last administered on 05/18 19:03; Admin Dose 10,000 UNITS; Start 05/13/16 at 17:00 Levalbuterol (Xopenex Hfa) 2 puff Q4H PRN INH WHEEZING AND SOB; Start 05/13/16 at 00:00 Minoxidil (Loniten) 5 mg BID PO Last administered on 05/19/16 09:23; Admin Dose 5 MG; Start 05/13/16 at 09:00 Nifedipine (Procardia Xl) 30 mg BID PO Last administered on 05/19/16 09:24; Admin Dose 30 MG; Start 05/13/16 at 09:00 Pantoprazole (Protonix Tab) 40 mg DAILY@06 PO Last administered on 05/20/16 06: 20; Admin Dose 40 MG; Start 05/13/16 at 06:00 Salmeterol Xinafoate/ Fluticasone (Advair 500/50 Diskus) 1 inh BID INH Last administered on 05/19/16 21:12; Admin Dose 1 INH; Start 05/13/16 at 09:00 Senna (Senokot) 1 tab DAILY PRN PO CONSTIPATION; Start 05/13/16 at 00:00 Tamsulosin HCl (Flomax) 0.4 mg HS PO Last administered on 05/19/16 21:12; Admin Dose 0.4 MG; Start 05/13/16 at 21:00 Tiotropium [place] (Spiriva) 1 inh BID INH Last administered on 05/19/16 09:21 ; Admin Dose 1 INH; Start 05/13/16 at 09:00 Valsartan (Diovan) 320 mg DAILY PO Last administered on 05/17/16 08:35; Admin Dose 320 MG; Start 05/13/16 at 09:00 Diagnostic Test (Pha) (Accucheck) 1 ea 02 XX Last administered on 05/13/16 02: 02; Admin Dose 1 EA; Start 05/13/16 at 02:00 Miscellaneous Information 1 ea NOTE XX ; Start 05/12/16 at 23:45 Glucose (Glutose) 15 gm Q15M PRN PO DECREASED GLUCOSE; Start 05/12/16 at 23:45 Glucose (Glutose) 22.5 gm Q15M PRN PO DECREASED GLUCOSE; Start 05/12/16 at 23: 45 Dextrose (D50w Syringe) 25 ml Q15M PRN IV DECREASED GLUCOSE; Start 05/12/16 at 23:45 Dextrose (D50w Syringe) 50 ml Q15M PRN IV DECREASED GLUCOSE; Start 05/12/16 at 23:45 Glucagon (Glucagen) 1 mg Q15M PRN IM DECREASED GLUCOSE; Start 05/12/16 at 23:45 Glucose (Glutose) 15 gm Q15M PRN BUCCAL DECREASED GLUCOSE; Start 05/12/16 at 23 :45 Multivit/Ca Carb/ B Cmplx/FA/Prenat 1 tab 1 tab DAILY PO Last administered on 09:23; Admin Dose 1 TAB; Start 05/15/16 at 09:00 Cefepime HCl (Maxipime 1gm/50 ml (Pmx)) 50 ml @ 100 mls/hr Q24H IVPB Last administered on 05/19/16 15:56; Admin Dose 100 MLS/HR; Start 05/15/16 at 16:00 Gentamicin Sulfate (Gentamicin Iv Per Pharmacy) GENTAMICIN PER PHARMACY NOTE XX ; Start 05/16/16 at 19:30 Voriconazole (Vfend) 200 mg BID PO ; Start 05/20/16 at 09:00 TRUE GTZ MD May 20, 2016 08:39
[2016-05-20] MEDS ORDERED: METHYLPREDNISOLONE 40 MG INJ IV SCH (09:00)
--- NOTE | 2016-05-20 09:03 | CONS ---
Date/Time of Note Date/Time of Note DATE: 05/20/16 TIME: 09:03 Assessment/Plan Assessment/Plan Chief Complaint/Hosp Course Anemia - CHRONIC, MULTIFACTORIAL WITH COMPONENT ACD AND IRON DEFICIENCY CONT TO MONITOR BLOOD COUNT CLOSELY OBSERVE FOR BLEEDING AND HEMOLYSIS TRANSFUSE NEEDED EPO WITH HD Acute respiratory failure.- PER PULM AND NEPHRO Pneumonia End-stage renal disease, hemodialysis dependent. Right chest Perm-A-Cath. Chronic obstructive pulmonary disease exacerbation. Problems: Consultation Date/Type/Reason Admit Date/Time May 12, 2016 at 09:46 Initial Consult Date 05.12.16 Type of Consultation: hemeon Referring Provider: HINA CASTILLO MD 24 HR Interval Summary Free Text/Dictation Respiratory: shortness of breath (is unchanged) Cardiovascular: No chest pain Gastrointestinal: no complaints Genitourinary: no complaints Exam/Review of Systems Vital Signs Vitals Vital Signs Date Time Temp Pulse Resp B/P Pulse Ox O2 Delivery O2 Flow Rate FiO2 05/20/16 08:58 73 05/20/16 07:19 97.9 18 131/60 97 05/20/16 04:12 40 05/19/16 20:00 Nasal Cannula 3.0 Intake and Output 05/19/16 05/19/16 05/20/16 15:00 23:00 07:00 Intake Total 200 ml 100 ml 150 ml Output Total 3200 ml Balance -3000 ml 100 ml 150 ml Exam GENERAL: This is a well-developed, fragile, elderly man who is in no distress. HEENT: Head atraumatic, normocephalic. Sclerae anicteric. Buccal mucosa dry. NECK: Supple, trachea midline. CHEST: Rise symmetrical. Breath sounds diminished to bases. HEART: S1, S2. ABDOMEN: Soft, bowel tones present. EXTREMITIES: Without cyanosis. Results Result Diagram: 05/19/16 0740 05/19/16 0740 Results 24 hrs Laboratory Tests Test 05/19/16 12:09 05/19/16 17:18 05/19/16 21:08 05/20/16 08:03 Bedside Glucose 183 211 203 151 Medications Medications Current Medications Ondansetron HCl (Zofran Tab) 4 mg Q6H PRN PO NAUSEA AND/OR VOMITING; Start at 14:30 Docusate Sodium (Colace) 100 mg Q12H PRN PO CONSTIPATION; Start 05/12/16 at 14: 30 Magnesium Hydroxide (Milk Of Mag) 30 ml DAILY PRN PO CONSTIPATION; Start at 14:30 Zolpidem Tartrate (Ambien) 5 mg QHS PRN PO SLEEP; Start 05/12/16 at 14:30 Heparin Sodium (Porcine) (Heparin (5000 Units/0.5 ml)) 5,000 unit Q12 SC Last administered on 05/19/16 21:25; Admin Dose 5,000 UNIT; Start 05/12/16 at 21:00 Acetaminophen (Tylenol Tab) 650 mg Q6H PRN PO PAIN AND OR ELEVATED TEMP; Start 05/13/16 at 00:00 Carvedilol (Coreg) 12.5 mg BID PO Last administered on 05/19/16 21:12; Admin Dose 12.5 MG; Start 05/13/16 at 09:00 Clonidine (Catapres) 0.1 mg TID PO Last administered on 05/17/16 12:33; Admin Dose 0.1 MG; Start 05/13/16 at 09:00 Levalbuterol (Xopenex Hfa) 2 puff Q4H PRN INH WHEEZING AND SOB; Start 05/13/16 at 00:00 Minoxidil (Loniten) 5 mg BID PO Last administered on 05/19/16 09:23; Admin Dose 5 MG; Start 05/13/16 at 09:00 Nifedipine (Procardia Xl) 30 mg BID PO Last administered on 05/20/16 08:23; Admin Dose 30 MG; Start 05/13/16 at 09:00 Pantoprazole (Protonix Tab) 40 mg DAILY@06 PO Last administered on 05/20/16 06: 20; Admin Dose 40 MG; Start 05/13/16 at 06:00 Salmeterol Xinafoate/ Fluticasone (Advair 500/50 Diskus) 1 inh BID INH Last administered on 05/20/16 08:22; Admin Dose 1 INH; Start 05/13/16 at 09:00 Senna (Senokot) 1 tab DAILY PRN PO CONSTIPATION; Start 05/13/16 at 00:00 Tamsulosin HCl (Flomax) 0.4 mg HS PO Last administered on 05/19/16 21:12; Admin Dose 0.4 MG; Start 05/13/16 at 21:00 Tiotropium [place] (Spiriva) 1 inh BID INH Last administered on 05/19/16 09:21 ; Admin Dose 1 INH; Start 05/13/16 at 09:00 Valsartan (Diovan) 320 mg DAILY PO Last administered on 05/17/16 08:35; Admin Dose 320 MG; Start 05/13/16 at 09:00 Diagnostic Test (Pha) (Accucheck) 1 ea 02 XX Last administered on 05/13/16 02: 02; Admin Dose 1 EA; Start 05/13/16 at 02:00 Miscellaneous Information 1 ea NOTE XX ; Start 05/12/16 at 23:45 Glucose (Glutose) 15 gm Q15M PRN PO DECREASED GLUCOSE; Start 05/12/16 at 23:45 Glucose (Glutose) 22.5 gm Q15M PRN PO DECREASED GLUCOSE; Start 05/12/16 at 23: 45 Dextrose (D50w Syringe) 25 ml Q15M PRN IV DECREASED GLUCOSE; Start 05/12/16 at 23:45 Dextrose (D50w Syringe) 50 ml Q15M PRN IV DECREASED GLUCOSE; Start 05/12/16 at 23:45 Glucagon (Glucagen) 1 mg Q15M PRN IM DECREASED GLUCOSE; Start 05/12/16 at 23:45 Glucose (Glutose) 15 gm Q15M PRN BUCCAL DECREASED GLUCOSE; Start 05/12/16 at 23 :45 Multivit/Ca Carb/ B Cmplx/FA/Prenat 1 tab 1 tab DAILY PO Last administered on 08:21; Admin Dose 1 TAB; Start 05/15/16 at 09:00 Cefepime HCl (Maxipime 1gm/50 ml (Pmx)) 50 ml @ 100 mls/hr Q24H IVPB Last administered on 05/19/16 15:56; Admin Dose 100 MLS/HR; Start 05/15/16 at 16:00 Gentamicin Sulfate (Gentamicin Iv Per Pharmacy) GENTAMICIN PER PHARMACY NOTE XX ; Start 05/16/16 at 19:30 Voriconazole (Vfend) 200 mg BID PO Last administered on 05/20/16 08:22; Admin Dose 200 MG; Start 05/20/16 at 09:00 ANDRE SMITH MD May 20, 2016 09:03
--- NOTE | 2016-05-20 09:12 | PN ---
Date/Time of Note Date/Time of Note DATE: 05/20/16 TIME: 09:12 Assessment/Plan VTE Prophylaxis VTE Prophylaxis Intervention: ambulation, anti-embolic stocking VTE Contraindication Reason: peripheral vascular disease Lines/Catheters IV Catheter Type (from Nrsg): [place] line still needed: No Urinary Cath still in place: No Reason Cath still needed: urinary retention Assessment/Plan Assessment/Plan 1. Bilateral pneumonia with worsening of wheezing and hemoptysis with respiratory failure; Improved after HD.Started on solumedrol. 2.. Leukocytosis 18k-- now 13K; 3. Chest pain-s/p 2 angiographies and stenting-cardiology consult. 4. End-stage renal disease-on HD 5. Anxiety, depression with dissatisfaction 6. Diabetes type 2-better controlled 7. Osteoarthritis. 8. Anemia of chronic disease-H/H stable. 9. Status post multiple units of packed red blood cell transfusions. 10. Weight loss-more than 50lb in 8 months. 11. Hypertension-out of control during respiratory distress. 12. Memory impairment. 13. Major depression. 14. Back pain. 15. Benign prostatic hypertrophy. 16. S/P left forearm a/v shunt placement for dialysis-functions well , not mature yet. 17. S/P right Jugular vein cannulation for dialysis-no signs of infection. 18. Hypoxemia with hypercapnia on home 02 and BIPAP. 19. Anxiety; borderline personality; 20. Excessive thirst. 21. Constipation Cont'd Hospitalization Reason: pneumonia Cont'd Hospitalization Reason: &HD. Subjective 24 Hr Interval Summary Free Text/Dictation Breathing improved. Decreased wheezing.D/C home. Exam/Review of Systems Vital Signs Vitals Vital Signs Date Time Temp Pulse Resp B/P Pulse Ox O2 Delivery O2 Flow Rate FiO2 05/20/16 08:58 73 05/20/16 07:19 97.9 18 131/60 97 05/20/16 04:12 40 05/19/16 20:00 Nasal Cannula 3.0 Intake and Output 05/19/16 05/19/16 05/20/16 15:00 23:00 07:00 Intake Total 200 ml 100 ml 150 ml Output Total 3200 ml Balance -3000 ml 100 ml 150 ml Results Result Diagram: 05/19/16 0740 05/19/16 0740 Results 24 hrs Laboratory Tests Test 05/19/16 12:09 05/19/16 17:18 05/19/16 21:08 05/20/16 08:03 Bedside Glucose 183 211 203 151 Medications Medications Current Medications Ondansetron HCl (Zofran Tab) 4 mg Q6H PRN PO NAUSEA AND/OR VOMITING; Start at 14:30 Docusate Sodium (Colace) 100 mg Q12H PRN PO CONSTIPATION; Start 05/12/16 at 14: 30 Magnesium Hydroxide (Milk Of Mag) 30 ml DAILY PRN PO CONSTIPATION; Start at 14:30 Zolpidem Tartrate (Ambien) 5 mg QHS PRN PO SLEEP; Start 05/12/16 at 14:30 Heparin Sodium (Porcine) (Heparin (5000 Units/0.5 ml)) 5,000 unit Q12 SC Last administered on 05/19/16 21:25; Admin Dose 5,000 UNIT; Start 05/12/16 at 21:00 Acetaminophen (Tylenol Tab) 650 mg Q6H PRN PO PAIN AND OR ELEVATED TEMP; Start 05/13/16 at 00:00 Carvedilol (Coreg) 12.5 mg BID PO Last administered on 05/19/16 21:12; Admin Dose 12.5 MG; Start 05/13/16 at 09:00 Clonidine (Catapres) 0.1 mg TID PO Last administered on 05/17/16 12:33; Admin Dose 0.1 MG; Start 05/13/16 at 09:00 Levalbuterol (Xopenex Hfa) 2 puff Q4H PRN INH WHEEZING AND SOB; Start 05/13/16 at 00:00 Minoxidil (Loniten) 5 mg BID PO Last administered on 05/19/16 09:23; Admin Dose 5 MG; Start 05/13/16 at 09:00 Nifedipine (Procardia Xl) 30 mg BID PO Last administered on 05/20/16 08:23; Admin Dose 30 MG; Start 05/13/16 at 09:00 Pantoprazole (Protonix Tab) 40 mg DAILY@06 PO Last administered on 05/20/16 06: 20; Admin Dose 40 MG; Start 05/13/16 at 06:00 Salmeterol Xinafoate/ Fluticasone (Advair 500/50 Diskus) 1 inh BID INH Last administered on 05/20/16 08:22; Admin Dose 1 INH; Start 05/13/16 at 09:00 Senna (Senokot) 1 tab DAILY PRN PO CONSTIPATION; Start 05/13/16 at 00:00 Tamsulosin HCl (Flomax) 0.4 mg HS PO Last administered on 05/19/16 21:12; Admin Dose 0.4 MG; Start 05/13/16 at 21:00 Tiotropium [place] (Spiriva) 1 inh BID INH Last administered on 05/19/16 09:21 ; Admin Dose 1 INH; Start 05/13/16 at 09:00 Valsartan (Diovan) 320 mg DAILY PO Last administered on 05/17/16 08:35; Admin Dose 320 MG; Start 05/13/16 at 09:00 Diagnostic Test (Pha) (Accucheck) 1 ea 02 XX Last administered on 05/13/16 02: 02; Admin Dose 1 EA; Start 05/13/16 at 02:00 Miscellaneous Information 1 ea NOTE XX ; Start 05/12/16 at 23:45 Glucose (Glutose) 15 gm Q15M PRN PO DECREASED GLUCOSE; Start 05/12/16 at 23:45 Glucose (Glutose) 22.5 gm Q15M PRN PO DECREASED GLUCOSE; Start 05/12/16 at 23: 45 Dextrose (D50w Syringe) 25 ml Q15M PRN IV DECREASED GLUCOSE; Start 05/12/16 at 23:45 Dextrose (D50w Syringe) 50 ml Q15M PRN IV DECREASED GLUCOSE; Start 05/12/16 at 23:45 Glucagon (Glucagen) 1 mg Q15M PRN IM DECREASED GLUCOSE; Start 05/12/16 at 23:45 Glucose (Glutose) 15 gm Q15M PRN BUCCAL DECREASED GLUCOSE; Start 05/12/16 at 23 :45 Multivit/Ca Carb/ B Cmplx/FA/Prenat 1 tab 1 tab DAILY PO Last administered on 08:21; Admin Dose 1 TAB; Start 05/15/16 at 09:00 Cefepime HCl (Maxipime 1gm/50 ml (Pmx)) 50 ml @ 100 mls/hr Q24H IVPB Last administered on 05/19/16 15:56; Admin Dose 100 MLS/HR; Start 05/15/16 at 16:00 Gentamicin Sulfate (Gentamicin Iv Per Pharmacy) GENTAMICIN PER PHARMACY NOTE XX ; Start 05/16/16 at 19:30 Voriconazole (Vfend) 200 mg BID PO Last administered on 05/20/16t 08:22; Admin Dose 200 MG; Start 05/20/16 at 09:00 HINA CASTILLO MD May 20, 2016 09:12
--- NOTE | 2016-05-20 10:27 | CONS ---
Date/Time of Note Date/Time of Note DATE: 05/20/16 TIME: 10:27 Consultation Date/Type/Reason Admit Date/Time May 12, 2016 at 09:46 Initial Consult Date 05/19/16 Type of [facility]ation: [facility] Referring Provider: HINA CASTILLO MD 24 HR Interval Summary Free Text/Dictation Patient refused to be seen. He only wants to be evaluated by his primary care physician. We will sign off. Thanks for the consult. Exam/Review of Systems Vital Signs Vitals Vital Signs Date Time Temp Pulse Resp B/P Pulse Ox O2 Delivery O2 Flow Rate FiO2 05/20/16 09:56 80 18 97 Nasal Cannula 3.0 05/20/16 07:19 97.9 131/60 05/20/16 04:12 40 Intake and Output 05/19/16 05/19/16 05/20/16 15:00 23:00 07:00 Intake Total 200 ml 100 ml 150 ml Output Total 3200 ml Balance -3000 ml 100 ml 150 ml Results Result Diagram: 05/19/16 0740 05/19/16 0740 Results 24 hrs Laboratory Tests Test 05/19/16 12:09 05/19/16 17:18 05/19/16 21:08 05/20/16 08:03 Bedside Glucose 183 211 203 151 Medications Medications Current Medications Ondansetron HCl (Zofran Tab) 4 mg Q6H PRN PO NAUSEA AND/OR VOMITING; Start at 14:30 Docusate Sodium (Colace) 100 mg Q12H PRN PO CONSTIPATION; Start 05/12/16 at 14: 30 Magnesium Hydroxide (Milk Of Mag) 30 ml DAILY PRN PO CONSTIPATION; Start at 14:30 Zolpidem Tartrate (Ambien) 5 mg QHS PRN PO SLEEP; Start 05/12/16 at 14:30 Heparin Sodium (Porcine) (Heparin (5000 Units/0.5 ml)) 5,000 unit Q12 SC Last administered on 05/19/16t 21:25; Admin Dose 5,000 UNIT; Start 05/12/16 at 21:00 Acetaminophen (Tylenol Tab) 650 mg Q6H PRN PO PAIN AND OR ELEVATED TEMP; Start 05/13/16 at 00:00 Carvedilol (Coreg) 12.5 mg BID PO Last administered on 05/19/16 21:12; Admin Dose 12.5 MG; Start 05/13/16 at 09:00 Clonidine (Catapres) 0.1 mg TID PO Last administered on 05/17/16 12:33; Admin Dose 0.1 MG; Start 05/13/16 at 09:00 Levalbuterol (Xopenex Hfa) 2 puff Q4H PRN INH WHEEZING AND SOB; Start 05/13/16 at 00:00 Minoxidil (Loniten) 5 mg BID PO Last administered on 05/19/16 09:23; Admin Dose 5 MG; Start 05/13/16 at 09:00 Nifedipine (Procardia Xl) 30 mg BID PO Last administered on 05/20/16 08:23; Admin Dose 30 MG; Start 05/13/16 at 09:00 Pantoprazole (Protonix Tab) 40 mg DAILY@06 PO Last administered on 05/20/16 06: 20; Admin Dose 40 MG; Start 05/13/16 at 06:00 Salmeterol Xinafoate/ Fluticasone (Advair 500/50 Diskus) 1 inh BID INH Last administered on 05/20/16 08:22; Admin Dose 1 INH; Start 05/13/16 at 09:00 Senna (Senokot) 1 tab DAILY PRN PO CONSTIPATION; Start 05/13/16 at 00:00 Tamsulosin HCl (Flomax) 0.4 mg HS PO Last administered on 05/19/16 21:12; Admin Dose 0.4 MG; Start 05/13/16 at 21:00 Tiotropium [place] (Spiriva) 1 inh BID INH Last administered on 05/19/16 09:21 ; Admin Dose 1 INH; Start 05/13/16 at 09:00 Valsartan (Diovan) 320 mg DAILY PO Last administered on 05/17/16 08:35; Admin Dose 320 MG; Start 05/13/16 at 09:00 Diagnostic Test (Pha) (Accucheck) 1 ea 02 XX Last administered on 05/13/16 02: 02; Admin Dose 1 EA; Start 05/13/16 at 02:00 Miscellaneous Information 1 ea NOTE XX ; Start 05/12/16 at 23:45 Glucose (Glutose) 15 gm Q15M PRN PO DECREASED GLUCOSE; Start 05/12/16 at 23:45 Glucose (Glutose) 22.5 gm Q15M PRN PO DECREASED GLUCOSE; Start 05/12/16 at 23: 45 Dextrose (D50w Syringe) 25 ml Q15M PRN IV DECREASED GLUCOSE; Start 05/12/16 at 23:45 Dextrose (D50w Syringe) 50 ml Q15M PRN IV DECREASED GLUCOSE; Start 05/12/16 at 23:45 Glucagon (Glucagen) 1 mg Q15M PRN IM DECREASED GLUCOSE; Start 05/12/16 at 23:45 Glucose (Glutose) 15 gm Q15M PRN BUCCAL DECREASED GLUCOSE; Start 05/12/16 at 23 :45 Multivit/Ca Carb/ B Cmplx/FA/Prenat 1 tab 1 tab DAILY PO Last administered on 08:21; Admin Dose 1 TAB; Start 05/15/16 at 09:00 Cefepime HCl (Maxipime 1gm/50 ml (Pmx)) 50 ml @ 100 mls/hr Q24H IVPB Last administered on 05/19/16 15:56; Admin Dose 100 MLS/HR; Start 05/15/16 at 16:00 Gentamicin Sulfate (Gentamicin Iv Per Pharmacy) GENTAMICIN PER PHARMACY NOTE XX ; Start 05/16/16 at 19:30 Voriconazole (Vfend) 200 mg BID PO Last administered on 05/20/16 08:22; Admin Dose 200 MG; Start 05/20/16 at 09:00 NADER ANNE May 20, 2016 10:27
[2016-05-20] MEDS: TIOTROPIUM 18 MCG CAPSULE INHA DEV INH SCH ×2 (11:43→20:56)
--- NOTE | 2016-05-20 16:39 | CONS ---
Date/Time of Note Date/Time of Note DATE: 05/20/16 TIME: 16:38 Assessment/Plan Assessment/Plan Chief Complaint/Hosp Course SUBJECTIVE: Awake, comfortable on nasal cannula. No fevers. MICROBIOLOGY: Sputum culture growing Branhamella catarrhalis and PSA. ANTIMICROBIALS: Vfend, Cefepime and Gentamicin. OBJECTIVE: GENERAL: This is a well-developed, fragile, elderly man who is in no distress. HEENT: Head atraumatic, normocephalic. Sclerae anicteric. Buccal mucosa dry. NECK: Supple, trachea midline. CHEST: Rise symmetrical. Breath sounds diminished to bases. HEART: S1, S2. ABDOMEN: Soft, bowel tones present. EXTREMITIES: Without cyanosis. ASSESSMENT: 1. S/p acute respiratory failure. 2. Pneumonia with sputum culture growing Branhamella catarrhalis/PSA. 3. End-stage renal disease, hemodialysis dependent. 4. Right chest Perm-A-Cath. 5. Anemia. 6. Chronic obstructive pulmonary disease exacerbation. 7. Leukocytosis==> steroids induced PLAN: The patient remains stable. Continue abx, pulmonary/nephrology rec-s [facility] staff Problems: Consultation Date/Type/Reason Admit Date/Time May 12, 2016 at 09:46 Type of Consultation: ID Referring Provider: HINA CASTILLO MD Exam/Review of Systems Vital Signs Vitals Vital Signs Date Time Temp Pulse Resp B/P Pulse Ox O2 Delivery O2 Flow Rate FiO2 05/20/16 15:28 85 19 97 Nasal Cannula 3.0 05/20/16 15:12 97.5 124/58 05/20/16 04:12 40 Intake and Output 05/19/16 05/19/16 05/20/16 15:00 23:00 07:00 Intake Total 200 ml 100 ml 150 ml Output Total 3200 ml Balance -3000 ml 100 ml 150 ml Results Result Diagram: 05/19/16 0740 05/19/16 0740 Results 24 hrs Laboratory Tests Test 05/19/16 17:18 05/19/16 21:08 05/20/16 08:03 05/20/16 11:49 Bedside Glucose 211 203 151 209 Test 05/20/16 16:29 Bedside Glucose 155 Medications Medications Current Medications Ondansetron HCl (Zofran Tab) 4 mg Q6H PRN PO NAUSEA AND/OR VOMITING; Start at 14:30 Docusate Sodium (Colace) 100 mg Q12H PRN PO CONSTIPATION; Start 05/12/16 at 14: 30 Magnesium Hydroxide (Milk Of Mag) 30 ml DAILY PRN PO CONSTIPATION; Start at 14:30 Zolpidem Tartrate (Ambien) 5 mg QHS PRN PO SLEEP; Start 05/12/16 at 14:30 Heparin Sodium (Porcine) (Heparin (5000 Units/0.5 ml)) 5,000 unit Q12 SC Last administered on 05/19/16 21:25; Admin Dose 5,000 UNIT; Start 05/12/16 at 21:00 Acetaminophen (Tylenol Tab) 650 mg Q6H PRN PO PAIN AND OR ELEVATED TEMP; Start 05/13/16 at 00:00 Carvedilol (Coreg) 12.5 mg BID PO Last administered on 05/19/16 21:12; Admin Dose 12.5 MG; Start 05/13/16 at 09:00 Clonidine (Catapres) 0.1 mg TID PO Last administered on 05/17/16 12:33; Admin Dose 0.1 MG; Start 05/13/16 at 09:00 Levalbuterol (Xopenex Hfa) 2 puff Q4H PRN INH WHEEZING AND SOB; Start 05/13/16 at 00:00 Minoxidil (Loniten) 5 mg BID PO Last administered on 05/19/16 09:23; Admin Dose 5 MG; Start 05/13/16 at 09:00 Nifedipine (Procardia Xl) 30 mg BID PO Last administered on 05/20/16 08:23; Admin Dose 30 MG; Start 05/13/16 at 09:00 Pantoprazole (Protonix Tab) 40 mg DAILY@06 PO Last administered on 05/20/16 06: 20; Admin Dose 40 MG; Start 05/13/16 at 06:00 Salmeterol Xinafoate/ Fluticasone (Advair 500/50 Diskus) 1 inh BID INH Last administered on 05/20/16 08:22; Admin Dose 1 INH; Start 05/13/16 at 09:00 Senna (Senokot) 1 tab DAILY PRN PO CONSTIPATION; Start 05/13/16 at 00:00 Tamsulosin HCl (Flomax) 0.4 mg HS PO Last administered on 05/19/16 21:12; Admin Dose 0.4 MG; Start 05/13/16 at 21:[address] [place] (Spiriva) 1 inh BID INH Last administered on 05/20/16 11:43 ; Admin Dose 1 INH; Start 05/13/16 at 09:00 Valsartan (Diovan) 320 mg DAILY PO Last administered on 05/17/16 08:35; Admin Dose 320 MG; Start 05/13/16 at 09:00 Diagnostic Test (Pha) (Accucheck) 1 ea 02 XX Last administered on 05/13/16 02: 02; Admin Dose 1 EA; Start 05/13/16 at 02:00 Miscellaneous Information 1 ea NOTE XX ; Start 05/12/16 at 23:45 Glucose (Glutose) 15 gm Q15M PRN PO DECREASED GLUCOSE; Start 05/12/16 at 23:45 Glucose (Glutose) 22.5 gm Q15M PRN PO DECREASED GLUCOSE; Start 05/12/16 at 23: 45 Dextrose (D50w Syringe) 25 ml Q15M PRN IV DECREASED GLUCOSE; Start 05/12/16 at 23:45 Dextrose (D50w Syringe) 50 ml Q15M PRN IV DECREASED GLUCOSE; Start 05/12/16 at 23:45 Glucagon (Glucagen) 1 mg Q15M PRN IM DECREASED GLUCOSE; Start 05/12/16 at 23:45 Glucose (Glutose) 15 gm Q15M PRN BUCCAL DECREASED GLUCOSE; Start 05/12/16 at 23 :45 Multivit/Ca Carb/ B Cmplx/FA/Prenat 1 tab 1 tab DAILY PO Last administered on 08:21; Admin Dose 1 TAB; Start 05/15/16 at 09:00 Cefepime HCl (Maxipime 1gm/50 ml (Pmx)) 50 ml @ 100 mls/hr Q24H IVPB Last administered on 05/19/16 15:56; Admin Dose 100 MLS/HR; Start 05/15/16 at 16:00 Gentamicin Sulfate (Gentamicin Iv Per Pharmacy) GENTAMICIN PER PHARMACY NOTE XX ; Start 05/16/16 at 19:30 Voriconazole (Vfend) 200 mg BID PO Last administered on 05/20/16 08:22; Admin Dose 200 MG; Start 05/20/16 at 09:00 TRISH CUELLO NP May 20, 2016 16:39
[2016-05-20] MEDS: CEFEPIME 1GM/50 ML (PMX) 50 ML IVPB SCH (16:53)
[2016-05-20] MEDS: TAMSULOSIN (SR) 0.4 MG CAP PO SCH (20:59)
[2016-05-21] VITALS (24 sets, daily range): BP systolic 90–127; BP diastolic 45–82; PULSE 58–80; RESP 15–22
[2016-05-21] MEDS: ALBUTEROL 0.5% (NEB) 2.5 MG/0.5 ML AMP NEB SCH ×4 (01:43→20:17)
[2016-05-21] MEDS: IPRATROPIUM (NEB) 0.5 MG/2.5 ML AMP NEB SCH ×4 (01:43→20:17)
[2016-05-21] MEDS: ACCUCHECK XX SCH (02:00)
[2016-05-21] MEDS: LEVOTHYROXINE 125 MCG TAB PO SCH (06:20)
[2016-05-21] MEDS: PANTOPRAZOLE (EC) 40 MG TAB PO SCH (06:20)
[2016-05-21 07:05] LABS: POTASSIUM 5.7 mmol/L (3.5-5.1)
[2016-05-21 07:21] LABS: BASOPHIL # 0.1 10^3/ul (0.0-0.1); BASOPHILS % 0.2 % (0.0-2.0); EOSINOPHILS # 0.1 10^3/ul (0.0-0.5); EOSINOPHILS % 0.3 % (0.0-7.0); HEMATOCRIT 31.4 % (42.0-52.0); HEMOGLOBIN 10.3 g/dl (14.0-18.0); LYMPHOCYTES # 2.8 10^3/ul (0.8-2.9); LYMPHOCYTES % 12.9 % (15.0-51.0); MEAN CORPUSCULAR HEMOGLOBIN 29.4 pg (29.0-33.0); MEAN CORPUSCULAR HGB CONC 32.9 g/dl (32.0-37.0); MEAN CORPUSCULAR VOLUME 89.5 fl (82.0-101.0); MEAN PLATELET VOLUME 7.3 fl (7.4-10.4); MONOCYTE # 1.2 10^3/ul (0.3-0.9); MONOCYTES % 5.5 % (0.0-11.0); NEUTROPHIL # 17.4 10^3/ul (1.6-7.5); NEUTROPHILS % 81.1 % (39.0-77.0); PLATELET COUNT 368 10^3/UL (140-440); RED BLOOD COUNT 3.51 10^6/ul (4.70-6.10); RED CELL DISTRIBUTION WIDTH 17.4 % (11.5-14.5); UNCORRECTED WBC 21.5 10^3/ul (4.8-10.8); WHITE BLOOD COUNT 21.5 10^3/ul (4.8-10.8)
[2016-05-21] MEDS: INSULIN ASPART [NOVOLOG] 3 ML PEN SC SCH ×4 (07:46→22:22)
--- NOTE | 2016-05-21 07:55 | CONS ---
Date/Time of Note Date/Time of Note DATE: 05/21/16 TIME: 07:53 Assessment/Plan Assessment/Plan Additional Assessment/Plan 1. Pneumonia, abx per ID (??dc soon) 2. CHF, chronic, CXR ordered today as inc adventitious sounds today despite steroids given yesterday and cont abx 3. BP well controlled 4. CKD, to have HD today Consultation Date/Type/Reason Admit Date/Time May 12, 2016 at 09:46 Type of Consultation: ID Referring Provider: HINA CASTILLO MD Detailed Summary Respiratory: shortness of breath (is unchanged as is cough) Cardiovascular: No chest pain Gastrointestinal: no complaints Genitourinary: no complaints Exam/Review of Systems Vital Signs Vitals Vital Signs Date Time Temp Pulse Resp B/P Pulse Ox O2 Delivery O2 Flow Rate FiO2 05/21/16 07:21 98.1 72 18 125/82 98 05/21/16 05:09 40 05/20/16 19:51 Nasal Cannula 3.0 Intake and Output 05/20/16 05/20/16 05/21/16 15:00 23:00 07:00 Intake Total 700 ml 700 ml Balance 700 ml 700 ml Exam Neck: No jvd Respiratory: other (rales and rhonchi inc from yesrerday) Cardiovascular: regular rate and rhythm, No S3 Gastrointestinal: soft Extremities: No edema (adn no calf tend) Results Result Diagram: 05/19/16 0740 05/21/16 0600 Results 24 hrs Laboratory Tests Test 05/20/16 08:03 05/20/16 11:49 05/20/16 16:29 05/20/16 20:51 Bedside Glucose 151 209 155 159 Test 05/21/16 06:00 05/21/16 07:36 Anion Gap 20 H Blood Urea Nitrogen Pending Calcium Level 9.0 Carbon Dioxide Level 25 Chloride Level 92 L Creatinine Pending Glucose Level 101 # Potassium Level 5.7 H Sodium Level 131 L Bedside Glucose 120 Medications Medications Current Medications Ondansetron HCl (Zofran Tab) 4 mg Q6H PRN PO NAUSEA AND/OR VOMITING; Start at 14:30 Docusate Sodium (Colace) 100 mg Q12H PRN PO CONSTIPATION; Start 05/12/16 at 14: 30 Magnesium Hydroxide (Milk Of Mag) 30 ml DAILY PRN PO CONSTIPATION; Start at 14:30 Zolpidem Tartrate (Ambien) 5 mg QHS PRN PO SLEEP; Start 05/12/16 at 14:30 Heparin Sodium (Porcine) (Heparin (5000 Units/0.5 ml)) 5,000 unit Q12 SC Last administered on 05/19/16 21:25; Admin Dose 5,000 UNIT; Start 05/12/16 at 21:00 Acetaminophen (Tylenol Tab) 650 mg Q6H PRN PO PAIN AND OR ELEVATED TEMP; Start 05/13/16 at 00:00 Carvedilol (Coreg) 12.5 mg BID PO Last administered on 05/20/16 21:01; Admin Dose 12.5 MG; Start 05/13/16 at 09:00 Clonidine (Catapres) 0.1 mg TID PO Last administered on 05/20/16 21:00; Admin Dose 0.1 MG; Start 05/13/16 at 09:00 Levalbuterol (Xopenex Hfa) 2 puff Q4H PRN INH WHEEZING AND SOB; Start 05/13/16 at 00:00 Minoxidil (Loniten) 5 mg BID PO Last administered on 05/20/16 21:00; Admin Dose 5 MG; Start 05/13/16 at 09:00 Nifedipine (Procardia Xl) 30 mg BID PO Last administered on 05/20/16 21:01; Admin Dose 30 MG; Start 05/13/16 at 09:00 Pantoprazole (Protonix Tab) 40 mg DAILY@06 PO Last administered on 05/21/16 06: 20; Admin Dose 40 MG; Start 05/13/16 at 06:00 Salmeterol Xinafoate/ Fluticasone (Advair 500/50 Diskus) 1 inh BID INH Last administered on 05/20/16 20:54; Admin Dose 1 INH; Start 05/13/16 at 09:00 Senna (Senokot) 1 tab DAILY PRN PO CONSTIPATION; Start 05/13/16 at 00:00 Tamsulosin HCl (Flomax) 0.4 mg HS PO Last administered on 05/20/16 20:59; Admin Dose 0.4 MG; Start 05/13/16 at 21:00 Tiotropium [place] (Spiriva) 1 inh BID INH Last administered on 05/20/16 20:56 ; Admin Dose 1 INH; Start 05/13/16 at 09:00 Valsartan (Diovan) 320 mg DAILY PO Last administered on 05/17/16 08:35; Admin Dose 320 MG; Start 05/13/16 at 09:00 Diagnostic Test (Pha) (Accucheck) 1 ea 02 XX Last administered on 05/13/16 02: 02; Admin Dose 1 EA; Start 05/13/16 at 02:00 Miscellaneous Information 1 ea NOTE XX ; Start 05/12/16 at 23:45 Glucose (Glutose) 15 gm Q15M PRN PO DECREASED GLUCOSE; Start 05/12/16 at 23:45 Glucose (Glutose) 22.5 gm Q15M PRN PO DECREASED GLUCOSE; Start 05/12/16 at 23: 45 Dextrose (D50w Syringe) 25 ml Q15M PRN IV DECREASED GLUCOSE; Start 05/12/16 at 23:45 Dextrose (D50w Syringe) 50 ml Q15M PRN IV DECREASED GLUCOSE; Start 05/12/16 at 23:45 Glucagon (Glucagen) 1 mg Q15M PRN IM DECREASED GLUCOSE; Start 05/12/16 at 23:45 Glucose (Glutose) 15 gm Q15M PRN BUCCAL DECREASED GLUCOSE; Start 05/12/16 at 23 :45 Multivit/Ca Carb/ B Cmplx/FA/Prenat 1 tab 1 tab DAILY PO Last administered on 08:21; Admin Dose 1 TAB; Start 05/15/16 at 09:00 Cefepime HCl (Maxipime 1gm/50 ml (Pmx)) 50 ml @ 100 mls/hr Q24H IVPB Last administered on 05/20/16 16:53; Admin Dose 100 MLS/HR; Start 05/15/16 at 16:00 Gentamicin Sulfate (Gentamicin Iv Per Pharmacy) GENTAMICIN PER PHARMACY NOTE XX ; Start 05/16/16 at 19:30 Voriconazole (Vfend) 200 mg BID PO Last administered on 05/20/16 20:59; Admin Dose 200 MG; Start 05/20/16 at 09:00 TRUE GTZ MD May 21, 2016 07:55
[2016-05-21 08:01] LABS: CONDITION 1; LH ANALYZER COMMENTS 1
[2016-05-21] MEDS: VALSARTAN 160 MG TAB PO SCH (09:00)
[2016-05-21] MEDS: MINOXIDIL 2.5 MG TAB PO SCH ×2 (09:00→22:09)
[2016-05-21] MEDS: NIFEdipine (XL) 30 MG TAB PO SCH ×3 (09:00→22:09)
[2016-05-21] MEDS: CALCIUM ACETATE 667 MG CAP PO SCH ×3 (09:01→17:54)
[2016-05-21] MEDS: MULTIVIT/CA CARB/B CMPLX/FA TAB PO SCH (09:02)
[2016-05-21 09:03] LABS: CREATININE 7.04 mg/dl (0.61-1.24)
[2016-05-21] MEDS: VORICONAZOLE 200 MG TAB PO SCH ×2 (09:03→22:09)
[2016-05-21] MEDS: TIOTROPIUM 18 MCG CAPSULE INHA DEV INH SCH ×2 (09:04→22:10)
[2016-05-21] MEDS: SALMETEROL/FLUTICASONE 500/50 INHA INH SCH ×2 (09:04→22:10)
--- NOTE | 2016-05-21 09:13 | RADRPT ---
PROCEDURE: Chest Radiograph. CLINICAL INDICATION: Pulmonary edema. TECHNIQUE: Single frontal chest radiograph. COMPARISON: Chest radiograph 05/18/2016 FINDINGS: Heart size is within normal limits. Atherosclerotic calcifications are present. A right chest wall tunneled hemodialysis catheters in place with distal tip in the region of the cavoatrial junction . There are persistent interstitial opacities which may represent residual pulmonary edema or underl mauro chronic lung changes. The appearance is similar compared to 09/26. No confluent or lobar in filtrate is seen. No pleural effusion is identified. IMPRESSION: 1. Stable radiographic appearance of chest compared to 09/26. RPTAT: KK .Pankaj Rush MD, MD Date Time Electronically viewed and signed by .Pankaj Rush MD, MD on 05/21/2016 09:13 .B/
[2016-05-21] MEDS: HEPARIN 5,000 UNIT/0.5 ML SYG SC SCH ×2 (09:21→21:00)
--- NOTE | 2016-05-21 11:42 | RADRPT ---
Vent Rate: 76 bpm RR Interval: 0 msec [place] Interval: 210 msec QRS Duration: 100 msec QT Interval: 408 msec QTC Interval: 459 msec P-R-T [place]: 66 - -36 - 49 degrees Sinus rhythm with 1st degree AV block with premature supraventricular complexes Left axis deviation Cannot rule out Anterior infarct , age undetermined Abnormal ECG Electronically Signed By: Chema Craig [id number]
--- NOTE | 2016-05-21 12:06 | CONS ---
Date/Time of Note Date/Time of Note DATE: 05/21/16 TIME: 12:06 Assessment/Plan Assessment/Plan Chief Complaint/Hosp Course Anemia - CHRONIC, MULTIFACTORIAL WITH COMPONENT ACD AND IRON DEFICIENCY CONT TO MONITOR BLOOD COUNT CLOSELY OBSERVE FOR BLEEDING AND HEMOLYSIS TRANSFUSE NEEDED EPO WITH HD Acute respiratory failure.- PER PULM AND NEPHRO Pneumonia End-stage renal disease, hemodialysis dependent. Right chest Perm-A-Cath. Chronic obstructive pulmonary disease exacerbation. Problems: Consultation Date/Type/Reason Admit Date/Time May 12, 2016 at 09:46 Initial Consult Date 05.12.16 Type of Consultation: hemeonc Referring Provider: HINA CASTILLO MD 24 HR Interval Summary Free Text/Dictation FELLING SL BETTER COUNT REVIEWED Exam/Review of Systems Vital Signs Vitals Vital Signs Date Time Temp Pulse Resp B/P Pulse Ox O2 Delivery O2 Flow Rate FiO2 05/21/16 11:21 97.8 78 22 116/61 96 05/21/16 10:02 2.0 05/21/16 09:59 Nasal Cannula 05/21/16 05:09 40 Intake and Output 05/20/16 05/20/16 05/21/16 15:00 23:00 07:00 Intake Total 700 ml 700 ml Balance 700 ml 700 ml Exam GENERAL: This is a well-developed, fragile, elderly man who is in no distress. HEENT: Head atraumatic, normocephalic. Sclerae anicteric. Buccal mucosa dry. NECK: Supple, trachea midline. CHEST: Rise symmetrical. Breath sounds diminished to bases. HEART: S1, S2. ABDOMEN: Soft, bowel tones present. EXTREMITIES: Without cyanosis. Results Result Diagram: 05/21/16 0605/21/16 0600 Results 24 hrs Laboratory Tests Test 05/20/16 16:29 05/20/16 20:51 05/21/16 06:00 05/21/16 07:36 Bedside Glucose 155 159 120 Anion Gap 20 H Basophils # 0.1 Basophils % 0.2 Blood Morphology Comment Blood Urea Nitrogen 115 #H Calcium Level 9.0 Carbon Dioxide Level 25 Chloride Level 92 L Creatinine 7.04 #H Eosinophils # 0.1 Eosinophils % 0.3 Glucose Level 101 # Hematocrit 31.4 L Hemoglobin 10.3 L Lymphocytes # 2.8 Lymphocytes % 12.9 L Mean Corpuscular Hemoglobin 29.4 Mean Corpuscular Hemoglobin Concent 32.9 Mean Corpuscular Volume 89.5 Mean Platelet Volume 7.3 L Monocytes # 1.2 H Monocytes % 5.5 Neutrophils # 17.4 H Neutrophils % 81.1 H Nucleated Red Blood Cells # 0.0 Nucleated Red Blood Cells % 0.0 Platelet Count 368 # Potassium Level 5.7 H Red Blood Count 3.51 L Red Cell Distribution Width 17.4 H Sodium Level 131 L White Blood Count 21.5 H Test 05/21/16 11:52 Bedside Glucose 109 Medications Medications Current Medications Ondansetron HCl (Zofran Tab) 4 mg Q6H PRN PO NAUSEA AND/OR VOMITING; Start at 14:30 Docusate Sodium (Colace) 100 mg Q12H PRN PO CONSTIPATION; Start 05/12/16 at 14: 30 Magnesium Hydroxide (Milk Of Mag) 30 ml DAILY PRN PO CONSTIPATION; Start at 14:30 Zolpidem Tartrate (Ambien) 5 mg QHS PRN PO SLEEP; Start 05/12/16 at 14:30 Heparin Sodium (Porcine) (Heparin (5000 Units/0.5 ml)) 5,000 unit Q12 SC Last administered on 05/21/16 09:21; Admin Dose 5,000 UNIT; Start 05/12/16 at 21:00 Acetaminophen (Tylenol Tab) 650 mg Q6H PRN PO PAIN AND OR ELEVATED TEMP; Start 05/13/16 at 00:00 Carvedilol (Coreg) 12.5 mg BID PO Last administered on 05/20/16 21:01; Admin Dose 12.5 MG; Start 05/13/16 at 09:00 Clonidine (Catapres) 0.1 mg TID PO Last administered on 05/20/16 21:00; Admin Dose 0.1 MG; Start 05/13/16 at 09:00 Levalbuterol (Xopenex Hfa) 2 puff Q4H PRN INH WHEEZING AND SOB; Start 05/13/16 at 00:00 Minoxidil (Loniten) 5 mg BID PO Last administered on 05/20/16 21:00; Admin Dose 5 MG; Start 05/13/16 at 09:00 Nifedipine (Procardia Xl) 30 mg BID PO Last administered on 05/20/16 21:01; Admin Dose 30 MG; Start 05/13/16 at 09:00 Pantoprazole (Protonix Tab) 40 mg DAILY@06 PO Last administered on 05/21/16 06: 20; Admin Dose 40 MG; Start 05/13/16 at 06:00 Salmeterol Xinafoate/ Fluticasone (Advair 500/50 Diskus) 1 inh BID INH Last administered on 05/21/16 09:04; Admin Dose 1 INH; Start 05/13/16 at 09:00 Senna (Senokot) 1 tab DAILY PRN PO CONSTIPATION; Start 05/13/16 at 00:00 Tamsulosin HCl (Flomax) 0.4 mg HS PO Last administered on 05/20/16 20:59; Admin Dose 0.4 MG; Start 05/13/16 at 21:00 Tiotropium [place] (Spiriva) 1 inh BID INH Last administered on 05/21/16 09:04 ; Admin Dose 1 INH; Start 05/13/16 at 09:00 Valsartan (Diovan) 320 mg DAILY PO Last administered on 05/17/16 08:35; Admin Dose 320 MG; Start 05/13/16 at 09:00 Diagnostic Test (Pha) (Accucheck) 1 ea 02 XX Last administered on 05/13/16 02: 02; Admin Dose 1 EA; Start 05/13/16 at 02:00 Miscellaneous Information 1 ea NOTE XX ; Start 05/12/16 at 23:45 Glucose (Glutose) 15 gm Q15M PRN PO DECREASED GLUCOSE; Start 05/12/16 at 23:45 Glucose (Glutose) 22.5 gm Q15M PRN PO DECREASED GLUCOSE; Start 05/12/16 at 23: 45 Dextrose (D50w Syringe) 25 ml Q15M PRN IV DECREASED GLUCOSE; Start 05/12/16 at 23:45 Dextrose (D50w Syringe) 50 ml Q15M PRN IV DECREASED GLUCOSE; Start 05/12/16 at 23:45 Glucagon (Glucagen) 1 mg Q15M PRN IM DECREASED GLUCOSE; Start 05/12/16 at 23:45 Glucose (Glutose) 15 gm Q15M PRN BUCCAL DECREASED GLUCOSE; Start 05/12/16 at 23 :45 Multivit/Ca Carb/ B Cmplx/FA/Prenat 1 tab 1 tab DAILY PO Last administered on 09:02; Admin Dose 1 TAB; Start 05/15/16 at 09:00 Cefepime HCl (Maxipime 1gm/50 ml (Pmx)) 50 ml @ 100 mls/hr Q24H IVPB Last administered on 05/20/16 16:53; Admin Dose 100 MLS/HR; Start 05/15/16 at 16:00 Gentamicin Sulfate (Gentamicin Iv Per Pharmacy) GENTAMICIN PER PHARMACY NOTE XX ; Start 05/16/16 at 19:30 Voriconazole (Vfend) 200 mg BID PO Last administered on 05/21/16 09:03; Admin Dose 200 MG; Start 05/20/16 at 09:00 ANDRE SMITH MD May 21, 2016 12:06
[2016-05-21] MEDS ORDERED: predniSOLONE (3 MG/ML) CUP PO ONE (16:00)
[2016-05-21] MEDS: CEFEPIME 1GM/50 ML (PMX) 50 ML IVPB SCH (17:01)
--- NOTE | 2016-05-21 17:23 | CONS ---
Date/Time of Note Date/Time of Note DATE: 05/21/16 TIME: 17:22 Assessment/Plan Assessment/Plan Chief Complaint/Hosp Course SUBJECTIVE: Sleeping, comfortable on nasal cannula. No fevers. MICROBIOLOGY: Sputum culture growing Branhamella catarrhalis and PSA. ANTIMICROBIALS: Vfend, Cefepime and Gentamicin. OBJECTIVE: GENERAL: This is a well-developed, fragile, elderly man who is in no distress. HEENT: Head atraumatic, normocephalic. Sclerae anicteric. Buccal mucosa dry. NECK: Supple, trachea midline. CHEST: Rise symmetrical. Breath sounds diminished to bases. HEART: S1, S2. ABDOMEN: Soft, bowel tones present. EXTREMITIES: Without cyanosis. ASSESSMENT: 1. S/p acute respiratory failure. 2. Pneumonia with sputum culture growing Branhamella catarrhalis/PSA. 3. End-stage renal disease, hemodialysis dependent. 4. Right chest Perm-A-Cath. 5. Anemia. 6. Chronic obstructive pulmonary disease exacerbation. 7. Leukocytosis==> steroids induced PLAN: The patient remains stable, will dc abx in am and observe, pulmonary/ nephrology rec-s staff Problems: Consultation Date/Type/Reason Admit Date/Time May 12, 2016 at 09:46 Type of Consultation: id Referring Provider: HINA CASTILLO MD Exam/Review of Systems Vital Signs Vitals Vital Signs Date Time Temp Pulse Resp B/P Pulse Ox O2 Delivery O2 Flow Rate FiO2 05/21/16 16:25 72 05/21/16 15:32 97.9 18 96/54 97 05/21/16 14:58 Nasal Cannula 2.0 05/21/16 05:09 40 Intake and Output 05/20/16 05/20/16 05/21/16 15:00 23:00 07:00 Intake Total 700 ml 700 ml Balance 700 ml 700 ml Results Result Diagram: 05/21/16 0600 05/21/16 0600 Results 24 hrs Laboratory Tests Test 05/20/16 20:51 05/21/16 06:00 05/21/16 07:36 05/21/16 11:52 Bedside Glucose 159 120 109 Anion Gap 20 H Basophils # 0.1 Basophils % 0.2 Blood Morphology Comment Blood Urea Nitrogen 115 #H Calcium Level 9.0 Carbon Dioxide Level 25 Chloride Level 92 L Creatinine 7.04 #H Eosinophils # 0.1 Eosinophils % 0.3 Glucose Level 101 # Hematocrit 31.4 L Hemoglobin 10.3 L Lymphocytes # 2.8 Lymphocytes % 12.9 L Mean Corpuscular Hemoglobin 29.4 Mean Corpuscular Hemoglobin Concent 32.9 Mean Corpuscular Volume 89.5 Mean Platelet Volume 7.3 L Monocytes # 1.2 H Monocytes % 5.5 Neutrophils # 17.4 H Neutrophils % 81.1 H Nucleated Red Blood Cells # 0.0 Nucleated Red Blood Cells % 0.0 Platelet Count 368 # Potassium Level 5.7 H Red Blood Count 3.51 L Red Cell Distribution Width 17.4 H Sodium Level 131 L White Blood Count 21.5 H Medications Medications Current Medications Ondansetron HCl (Zofran Tab) 4 mg Q6H PRN PO NAUSEA AND/OR VOMITING; Start at 14:30 Docusate Sodium (Colace) 100 mg Q12H PRN PO CONSTIPATION; Start 05/12/16 at 14: 30 Magnesium Hydroxide (Milk Of Mag) 30 ml DAILY PRN PO CONSTIPATION; Start at 14:30 Zolpidem Tartrate (Ambien) 5 mg QHS PRN PO SLEEP; Start 05/12/16 at 14:30 Heparin Sodium (Porcine) (Heparin (5000 Units/0.5 ml)) 5,000 unit Q12 SC Last administered on 05/21/16 09:21; Admin Dose 5,000 UNIT; Start 05/12/16 at 21:00 Acetaminophen (Tylenol Tab) 650 mg Q6H PRN PO PAIN AND OR ELEVATED TEMP; Start 05/13/16 at 00:00 Carvedilol (Coreg) 12.5 mg BID PO Last administered on 05/20/16 21:01; Admin Dose 12.5 MG; Start 05/13/16 at 09:00 Clonidine (Catapres) 0.1 mg TID PO Last administered on 05/20/16 21:00; Admin Dose 0.1 MG; Start 05/13/16 at 09:00 Levalbuterol (Xopenex Hfa) 2 puff Q4H PRN INH WHEEZING AND SOB; Start 05/13/16 at 00:00 Minoxidil (Loniten) 5 mg BID PO Last administered on 05/20/16 21:00; Admin Dose 5 MG; Start 05/13/16 at 09:00 Nifedipine (Procardia Xl) 30 mg BID PO Last administered on 05/20/16 21:01; Admin Dose 30 MG; Start 05/13/16 at 09:00 Pantoprazole (Protonix Tab) 40 mg DAILY@06 PO Last administered on 05/21/16 06: 20; Admin Dose 40 MG; Start 05/13/16 at 06:00 Salmeterol Xinafoate/ Fluticasone (Advair 500/50 Diskus) 1 inh BID INH Last administered on 05/21/16 09:04; Admin Dose 1 INH; Start 05/13/16 at 09:00 Senna (Senokot) 1 tab DAILY PRN PO CONSTIPATION; Start 05/13/16 at 00:00 Tamsulosin HCl (Flomax) 0.4 mg HS PO Last administered on 05/20/16 20:59; Admin Dose 0.4 MG; Start 05/13/16 at 21:00 Tiotropium [place] (Spiriva) 1 inh BID INH Last administered on 05/21/16 09:04 ; Admin Dose 1 INH; Start 05/13/16 at 09:00 Valsartan (Diovan) 320 mg DAILY PO Last administered on 05/17/16 08:35; Admin Dose 320 MG; Start 05/13/16 at 09:00 Diagnostic Test (Pha) (Accucheck) 1 ea 02 XX Last administered on 05/13/16 02: 02; Admin Dose 1 EA; Start 05/13/16 at 02:00 Miscellaneous Information 1 ea NOTE XX ; Start 05/12/16 at 23:45 Glucose (Glutose) 15 gm Q15M PRN PO DECREASED GLUCOSE; Start 05/12/16 at 23:45 Glucose (Glutose) 22.5 gm Q15M PRN PO DECREASED GLUCOSE; Start 05/12/16 at 23: 45 Dextrose (D50w Syringe) 25 ml Q15M PRN IV DECREASED GLUCOSE; Start 05/12/16 at 23:45 Dextrose (D50w Syringe) 50 ml Q15M PRN IV DECREASED GLUCOSE; Start 05/12/16 at 23:45 Glucagon (Glucagen) 1 mg Q15M PRN IM DECREASED GLUCOSE; Start 05/12/16 at 23:45 Glucose (Glutose) 15 gm Q15M PRN BUCCAL DECREASED GLUCOSE; Start 05/12/16 at 23 :45 Multivit/Ca Carb/ B Cmplx/FA/Prenat 1 tab 1 tab DAILY PO Last administered on 09:02; Admin Dose 1 TAB; Start 05/15/16 at 09:00 Cefepime HCl (Maxipime 1gm/50 ml (Pmx)) 50 ml @ 100 mls/hr Q24H IVPB Last administered on 05/21/16 17:01; Admin Dose 100 MLS/HR; Start 05/15/16 at 16:00 Gentamicin Sulfate (Gentamicin Iv Per Pharmacy) GENTAMICIN PER PHARMACY NOTE XX ; Start 05/16/16 at 19:30 Voriconazole (Vfend) 200 mg BID PO Last administered on 05/21/16 09:03; Admin Dose 200 MG; Start 05/20/16 at 09:00 Prednisolone (Prelone) 15 mg ONCE PO ; Start 05/21/16 at 17:30; Stop 05/21/16 at 20:00 Prednisolone (Prelone) 15 mg DAILY PO ; Start 05/22/16 at 09:00; Status UNV Miscellaneous Information (*Order Clarification Bulletin) MEDICATION REQUIRES CLARIFICATION: Q8H XX ; Start 05/21/16 at 17:30 TRISH CUELLO NP May 21, 2016 17:23
[2016-05-21] MEDS ORDERED: predniSOLONE (3 MG/ML) CUP PO SCH (17:30)
[2016-05-21] MEDS: GENTAMICIN 80 MG/NS (PMX) 50 ML IVPB SCH (18:38)
[2016-05-21] MEDS: TAMSULOSIN (SR) 0.4 MG CAP PO SCH (22:09)
[2016-05-22] VITALS (11 sets, daily range): BP systolic 125–140; BP diastolic 55–63; PULSE 62–78; RESP 17–20
[2016-05-22] MEDS: ALBUTEROL 0.5% (NEB) 2.5 MG/0.5 ML AMP NEB SCH ×3 (01:46→14:21)
[2016-05-22] MEDS: IPRATROPIUM (NEB) 0.5 MG/2.5 ML AMP NEB SCH ×3 (01:46→14:21)
[2016-05-22] MEDS: ACCUCHECK XX SCH (02:00)
[2016-05-22 06:36] LABS: ADD SCAN DIFF NO
[2016-05-22] MEDS: LEVOTHYROXINE 125 MCG TAB PO SCH (06:58)
[2016-05-22] MEDS: PANTOPRAZOLE (EC) 40 MG TAB PO SCH (06:58)
[2016-05-22 07:09] LABS: POTASSIUM 4.6 mmol/L (3.5-5.1)
[2016-05-22 07:12] LABS: CREATININE 4.65 mg/dl (0.61-1.24)
[2016-05-22 07:13] LABS: CALCIUM 8.3 mg/dl (8.4-10.2)
[2016-05-22] MEDS: INSULIN ASPART [NOVOLOG] 3 ML PEN SC SCH ×2 (07:55→11:50)
--- NOTE | 2016-05-22 08:51 | RADRPT ---
PROCEDURE: US left upper extremity AV fistula/graft CLINICAL INDICATION: Renal failure TECHNIQUE: Multiple sonographic images of the left upper extremity arteries, veins and hemodialysi s access was obtained utilizing grayscale, color-flow, compressive sonography and doppler imaging. The images were reviewed on a PACS workstation. COMPARISON: None. FINDINGS: There is a left upper extremity AV fistula which is widely patent. Velocities, and measurements were obtained: Upper outflow vein: 246 cm/s; volume 6014 ml/minute; diameter 15 mm Mid outflow vein: 176 cm/s; volume 1031 ml/minute; diameter 7 mm Lower outflow vein: 313 cm/s; volume 2678 ml/minute; diameter 12 mm Arterial anastomosis: 551 cm/s Inflow artery : 396 cm/s IMPRESSION: Widely patent left AV fistula with slightly increased velocity at the arterial anastomosis. RPTAT: AA .Dhiraj Gonzalez MD, MD Date Time Electronically viewed and signed by .Dhiraj Gonzalez MD, on 05/22/2016 08:51 .S/
[2016-05-22] MEDS ORDERED: predniSOLONE (3 MG/ML) CUP PO SCH (09:00)
[2016-05-22] MEDS: MINOXIDIL 2.5 MG TAB PO SCH (09:00)
[2016-05-22] MEDS: VALSARTAN 160 MG TAB PO SCH (09:00)
[2016-05-22] MEDS: MULTIVIT/CA CARB/B CMPLX/FA TAB PO SCH (09:09)
[2016-05-22] MEDS: TIOTROPIUM 18 MCG CAPSULE INHA DEV INH SCH (09:10)
[2016-05-22] MEDS: CALCIUM ACETATE 667 MG CAP PO SCH ×2 (09:10→11:50)
[2016-05-22] MEDS: SALMETEROL/FLUTICASONE 500/50 INHA INH SCH (09:11)
[2016-05-22] MEDS: NIFEdipine (XL) 30 MG TAB PO SCH (09:11)
[2016-05-22] MEDS: HEPARIN 5,000 UNIT/0.5 ML SYG SC SCH (09:19)
[2016-05-22 09:38] LABS: ABNORMAL IP MESSAGE 1; BASOPHILS % 0.1 % (0.0-2.0); HEMATOCRIT 31.9 % (42.0-52.0); HEMOGLOBIN 9.7 g/dl (14.0-18.0); LYMPHOCYTES # 1.4 10^3/ul (0.8-2.9); MEAN CORPUSCULAR HEMOGLOBIN 28.7 pg (29.0-33.0); MEAN CORPUSCULAR HGB CONC 30.4 g/dl (32.0-37.0); MEAN CORPUSCULAR VOLUME 94.4 fl (82.0-101.0); MEAN PLATELET VOLUME 9.5 fl (7.4-10.4); MONOCYTE # 0.8 10^3/ul (0.3-0.9); MONOCYTES % 4.6 % (0.0-11.0); NEUTROPHIL # 14.3 10^3/ul (1.6-7.5); NEUTROPHILS % 81.9 % (39.0-77.0); PLATELET COUNT 311 10^3/UL (140-415); RED BLOOD COUNT 3.38 10^6/ul (4.70-6.10); RED CELL DISTRIBUTION WIDTH 15.9 % (11.5-14.5); WHITE BLOOD COUNT 17.5 10^3/ul (4.8-10.8)
--- NOTE | 2016-05-22 10:02 | CONS ---
Date/Time of Note Date/Time of Note DATE: 05/22/16 TIME: 09:57 Assessment/Plan Assessment/Plan Chief Complaint/Hosp Course 1. ESRD , he says that he is being discharged today . He will have outpatient dialysis at his outpatient dialysis unit tomorrow . 2. pneumonia , antibiotics per ID 3. HTN , BP under control today 4 CHF , compensated Problems: Consultation Date/Type/Reason Admit Date/Time May 12, 2016 at 09:46 Initial Consult Date 05/19/16 Type of Consultation: nephrology Referring Provider: HINA CASTILLO MD 24 HR Interval Summary Free Text/Dictation He is feeling better . Constitutional: no complaints Exam/Review of Systems Vital Signs Vitals Vital Signs Date Time Temp Pulse Resp B/P Pulse Ox O2 Delivery O2 Flow Rate FiO2 05/22/16 08:39 85 22 92 Nasal Cannula 2.0 28 05/22/16 07:43 98.2 131/60 Intake and Output 05/21/16 05/21/16 05/22/16 15:00 23:00 07:00 Intake Total 1240 ml 250 ml Output Total 2500 ml Balance -1260 ml 250 ml Exam Constitutional: alert, oriented, well developed Psych: nl mood/affect, no complaints Respiratory: crackles/rales Cardiovascular: regular rate and rhythm Gastrointestinal: soft Musculoskeletal: nl extremities to inspection Results Result Diagram: 05/21/16 0600 05/22/16 0601 Results 24 hrs Laboratory Tests Test 05/21/16 11:52 05/21/16 17:53 05/21/16 22:12 05/22/16 06:01 Bedside Glucose 109 124 172 Anion Gap 18 H Blood Urea Nitrogen 68 #H Calcium Level 8.3 L Carbon Dioxide Level 27 Chloride Level 96 L Creatinine 4.65 #H Glucose Level 152 Phosphorus Level 4.0 Potassium Level 4.6 Sodium Level 136 Test 05/22/16 08:31 Bedside Glucose 118 Medications Medications Current Medications Ondansetron HCl (Zofran Tab) 4 mg Q6H PRN PO NAUSEA AND/OR VOMITING; Start at 14:30 Docusate Sodium (Colace) 100 mg Q12H PRN PO CONSTIPATION; Start 05/12/16 at 14: 30 Magnesium Hydroxide (Milk Of Mag) 30 ml DAILY PRN PO CONSTIPATION; Start at 14:30 Zolpidem Tartrate (Ambien) 5 mg QHS PRN PO SLEEP; Start 05/12/16 at 14:30 Heparin Sodium (Porcine) (Heparin (5000 Units/0.5 ml)) 5,000 unit Q12 SC Last administered on 05/22/16 09:19; Admin Dose 5,000 UNIT; Start 05/12/16 at 21:00 Acetaminophen (Tylenol Tab) 650 mg Q6H PRN PO PAIN AND OR ELEVATED TEMP; Start 05/13/16 at 00:00 Carvedilol (Coreg) 12.5 mg BID PO Last administered on 05/22/16 09:10; Admin Dose 12.5 MG; Start 05/13/16 at 09:00 Clonidine (Catapres) 0.1 mg TID PO Last administered on 05/20/16 21:00; Admin Dose 0.1 MG; Start 05/13/16 at 09:00 Levalbuterol (Xopenex Hfa) 2 puff Q4H PRN INH WHEEZING AND SOB; Start 05/13/16 at 00:00 Minoxidil (Loniten) 5 mg BID PO Last administered on 05/21/16 22:09; Admin Dose 5 MG; Start 05/13/16 at 09:00 Nifedipine (Procardia Xl) 30 mg BID PO Last administered on 05/22/16 09:11; Admin Dose 30 MG; Start 05/13/16 at 09:00 Pantoprazole (Protonix Tab) 40 mg DAILY@06 PO Last administered on 05/22/16 06 :58; Admin Dose 40 MG; Start 05/13/16 at 06:00 Salmeterol Xinafoate/ Fluticasone (Advair 500/50 Diskus) 1 inh BID INH Last administered on 05/22/16 09:11; Admin Dose 1 INH; Start 05/13/16 at 09:00 Senna (Senokot) 1 tab DAILY PRN PO CONSTIPATION; Start 05/13/16 at 00:00 Tamsulosin HCl (Flomax) 0.4 mg HS PO Last administered on 05/21/16 22:09; Admin Dose 0.4 MG; Start 05/13/16 at 21:00 Tiotropium [place] (Spiriva) 1 inh BID INH Last administered on 05/22/16 09:10 ; Admin Dose 1 INH; Start 05/13/16 at 09:00 Valsartan (Diovan) 320 mg DAILY PO Last administered on 05/17/16 08:35; Admin Dose 320 MG; Start 05/13/16 at 09:00 Diagnostic Test (Pha) (Accucheck) 1 ea 02 XX Last administered on 05/13/16 02: 02; Admin Dose 1 EA; Start 05/13/16 at 02:00 Miscellaneous Information 1 ea NOTE XX ; Start 05/12/16 at 23:45 Glucose (Glutose) 15 gm Q15M PRN PO DECREASED GLUCOSE; Start 05/12/16 at 23:45 Glucose (Glutose) 22.5 gm Q15M PRN PO DECREASED GLUCOSE; Start 05/12/16 at 23: 45 Dextrose (D50w Syringe) 25 ml Q15M PRN IV DECREASED GLUCOSE; Start 05/12/16 at 23:45 Dextrose (D50w Syringe) 50 ml Q15M PRN IV DECREASED GLUCOSE; Start 05/12/16 at 23:45 Glucagon (Glucagen) 1 mg Q15M PRN IM DECREASED GLUCOSE; Start 05/12/16 at 23:45 Glucose (Glutose) 15 gm Q15M PRN BUCCAL DECREASED GLUCOSE; Start 05/12/16 at 23 :45 Multivit/Ca Carb/ B Cmplx/FA/Prenat (Katlyn-Michael) 1 tab DAILY PO Last administered on 05/22/16 09:09; Admin Dose 1 TAB; Start 05/15/16 at 09:00 Prednisolone (Prelone) 15 mg DAILY PO Last administered on 05/22/16 09:10; Admin Dose 15 MG; Start 05/22/16 at 09:00 CHANTELL HICKMAN MD May 22, 2016 10:02
--- NOTE | 2016-05-22 12:28 | CONS ---
Date/Time of Note Date/Time of Note DATE: 05/22/16 TIME: 12:27 Assessment/Plan Assessment/Plan Chief Complaint/Hosp Course SUBJECTIVE: Alert, feels good, asking if he will be dc today, No fevers. MICROBIOLOGY: Sputum culture growing Branhamella catarrhalis and PSA. OBJECTIVE: GENERAL: This is a well-developed, fragile, elderly man who is in no distress. HEENT: Head atraumatic, normocephalic. Sclerae anicteric. Buccal mucosa dry. NECK: Supple, trachea midline. CHEST: Rise symmetrical. Breath sounds diminished to bases. HEART: S1, S2. ABDOMEN: Soft, bowel tones present. EXTREMITIES: Without cyanosis. ASSESSMENT: 1. S/p acute respiratory failure. 2. S/p Pneumonia with sputum culture growing Branhamella catarrhalis/PSA. 3. End-stage renal disease, hemodialysis dependent. 4. Right chest Perm-A-Cath. 5. Anemia. 6. Chronic obstructive pulmonary disease exacerbation. 7. Leukocytosis==> steroids induced PLAN: The patient remains stable, abx dc'd, pending dc planning, pulmonary/ nephrology rec-s staff/pt Problems: Consultation Date/Type/Reason Admit Date/Time May 12, 2016 at 09:46 Type of Consultation: id Referring Provider: HINA CASTILLO MD Exam/Review of Systems Vital Signs Vitals Vital Signs Date Time Temp Pulse Resp B/P Pulse Ox O2 Delivery O2 Flow Rate FiO2 05/22/16 11:34 97.6 68 17 140/63 98 05/22/16 08:39 Nasal Cannula 2.0 28 Intake and Output 05/21/16 05/21/16 05/22/16 15:00 23:00 07:00 Intake Total 1240 ml 250 ml Output Total 2500 ml Balance -1260 ml 250 ml Results Result Diagram: 05/22/16 0601 05/22/16 0601 Results 24 hrs Laboratory Tests Test 05/21/16 17:53 05/21/16 22:12 05/22/16 06:01 05/22/16 08:31 Bedside Glucose 124 172 118 Anion Gap 18 H Basophils # 0.0 Basophils % 0.1 Blood Urea Nitrogen 68 #H Calcium Level 8.3 L Carbon Dioxide Level 27 Chloride Level 96 L Creatinine 4.65 #H Eosinophils # 0.0 Eosinophils % 0.0 Glucose Level 152 Hematocrit 31.9 L Hemoglobin 9.7 L Lymphocytes # 1.4 Lymphocytes % 8.0 L Mean Corpuscular Hemoglobin 28.7 L Mean Corpuscular Hemoglobin Concent 30.4 L Mean Corpuscular Volume 94.4 Mean Platelet Volume 9.5 # Monocytes # 0.8 Monocytes % 4.6 Neutrophils # 14.3 H Neutrophils % 81.9 H Nucleated Red Blood Cells # 0.0 Nucleated Red Blood Cells % 0.0 Phosphorus Level 4.0 Platelet Count 311 Potassium Level 4.6 Red Blood Count 3.38 L Red Cell Distribution Width 15.9 H Sodium Level 136 White Blood Count 17.5 H Medications Medications Current Medications Ondansetron HCl (Zofran Tab) 4 mg Q6H PRN PO NAUSEA AND/OR VOMITING; Start at 14:30 Docusate Sodium (Colace) 100 mg Q12H PRN PO CONSTIPATION; Start 05/12/16 at 14: 30 Magnesium Hydroxide (Milk Of Mag) 30 ml DAILY PRN PO CONSTIPATION; Start at 14:30 Zolpidem Tartrate (Ambien) 5 mg QHS PRN PO SLEEP; Start 05/12/16 at 14:30 Heparin Sodium (Porcine) (Heparin (5000 Units/0.5 ml)) 5,000 unit Q12 SC Last administered on 05/22/16 09:19; Admin Dose 5,000 UNIT; Start 05/12/16 at 21:00 Acetaminophen (Tylenol Tab) 650 mg Q6H PRN PO PAIN AND OR ELEVATED TEMP; Start 05/13/16 at 00:00 Carvedilol (Coreg) 12.5 mg BID PO Last administered on 05/22/16 09:10; Admin Dose 12.5 MG; Start 05/13/16 at 09:00 Clonidine (Catapres) 0.1 mg TID PO Last administered on 05/20/16 21:00; Admin Dose 0.1 MG; Start 05/13/16 at 09:00 Levalbuterol (Xopenex Hfa) 2 puff Q4H PRN INH WHEEZING AND SOB; Start 05/13/16 at 00:00 Minoxidil (Loniten) 5 mg BID PO Last administered on 05/21/16 22:09; Admin Dose 5 MG; Start 05/13/16 at 09:00 Nifedipine (Procardia Xl) 30 mg BID PO Last administered on 05/22/16 09:11; Admin Dose 30 MG; Start 05/13/16 at 09:00 Pantoprazole (Protonix Tab) 40 mg DAILY@06 PO Last administered on 05/22/16 06 :58; Admin Dose 40 MG; Start 05/13/16 at 06:00 Salmeterol Xinafoate/ Fluticasone (Advair 500/50 Diskus) 1 inh BID INH Last administered on 05/22/16 09:11; Admin Dose 1 INH; Start 05/13/16 at 09:00 Senna (Senokot) 1 tab DAILY PRN PO CONSTIPATION; Start 05/13/16 at 00:00 Tamsulosin HCl (Flomax) 0.4 mg HS PO Last administered on 05/21/16 22:09; Admin Dose 0.4 MG; Start 05/13/16 at 21:00 Tiotropium [place] (Spiriva) 1 inh BID INH Last administered on 05/22/16 09:10 ; Admin Dose 1 INH; Start 05/13/16 at 09:00 Valsartan (Diovan) 320 mg DAILY PO Last administered on 05/17/16 08:35; Admin Dose 320 MG; Start 05/13/16 at 09:00 Diagnostic Test (Pha) (Accucheck) 1 ea 02 XX Last administered on 05/13/16 02: 02; Admin Dose 1 EA; Start 05/13/16 at 02:00 Miscellaneous Information 1 ea NOTE XX ; Start 05/12/16 at 23:45 Glucose (Glutose) 15 gm Q15M PRN PO DECREASED GLUCOSE; Start 05/12/16 at 23:45 Glucose (Glutose) 22.5 gm Q15M PRN PO DECREASED GLUCOSE; Start 05/12/16 at 23: 45 Dextrose (D50w Syringe) 25 ml Q15M PRN IV DECREASED GLUCOSE; Start 05/12/16 at 23:45 Dextrose (D50w Syringe) 50 ml Q15M PRN IV DECREASED GLUCOSE; Start 05/12/16 at 23:45 Glucagon (Glucagen) 1 mg Q15M PRN IM DECREASED GLUCOSE; Start 05/12/16 at 23:45 Glucose (Glutose) 15 gm Q15M PRN BUCCAL DECREASED GLUCOSE; Start 05/12/16 at 23 :45 Multivit/Ca Carb/ B Cmplx/FA/Prenat (Katlyn-Michael) 1 tab DAILY PO Last administered on 05/22/16 09:09; Admin Dose 1 TAB; Start 05/15/16 at 09:00 Prednisolone (Prelone) 15 mg DAILY PO Last administered on 05/22/16 09:10; Admin Dose 15 MG; Start 05/22/16 at 09:00 TRISH CUELLO NP May 22, 2016 12:28
--- NOTE | 2016-05-22 13:55 | CONS ---
Date/Time of Note Date/Time of Note DATE: 05/22/16 TIME: 13:55 Assessment/Plan Assessment/Plan Chief Complaint/Hosp Course Anemia - CHRONIC, MULTIFACTORIAL WITH COMPONENT ACD AND IRON DEFICIENCY CONT TO MONITOR BLOOD COUNT CLOSELY OBSERVE FOR BLEEDING AND HEMOLYSIS TRANSFUSE NEEDED EPO WITH HD Acute respiratory failure.- IMPROVED Pneumonia End-stage renal disease, hemodialysis dependent. Right chest Perm-A-Cath. Chronic obstructive pulmonary disease exacerbation. Problems: Consultation Date/Type/Reason Admit Date/Time May 12, 2016 at 09:46 Initial Consult Date 05.12.16 Referring Provider: HINA CASTILLO MD 24 HR Interval Summary Free Text/Dictation FELLING BETTER POS DC TODAY NAD Exam/Review of Systems Vital Signs Vitals Vital Signs Date Time Temp Pulse Resp B/P Pulse Ox O2 Delivery O2 Flow Rate FiO2 05/22/16 12:48 69 05/22/16 11:34 97.6 17 140/63 98 05/22/16 08:39 Nasal Cannula 2.0 28 Intake and Output 05/21/16 05/21/16 05/22/16 15:00 23:00 07:00 Intake Total 1240 ml 250 ml Output Total 2500 ml Balance -1260 ml 250 ml Exam GENERAL: This is a well-developed, fragile, elderly man who is in no distress. HEENT: Head atraumatic, normocephalic. Sclerae anicteric. Buccal mucosa dry. NECK: Supple, trachea midline. CHEST: Rise symmetrical. Breath sounds diminished to bases. HEART: S1, S2. ABDOMEN: Soft, bowel tones present. EXTREMITIES: Without cyanosis. Results Result Diagram: 05/22/16 0601 05/22/16 06 Results 24 hrs Laboratory Tests Test 05/21/16 17:53 05/21/16 22:12 05/22/16 06:01 05/22/16 08:31 Bedside Glucose 124 172 118 Anion Gap 18 H Basophils # 0.0 Basophils % 0.1 Blood Urea Nitrogen 68 #H Calcium Level 8.3 L Carbon Dioxide Level 27 Chloride Level 96 L Creatinine 4.65 #H Eosinophils # 0.0 Eosinophils % 0.0 Glucose Level 152 Hematocrit 31.9 L Hemoglobin 9.7 L Lymphocytes # 1.4 Lymphocytes % 8.0 L Mean Corpuscular Hemoglobin 28.7 L Mean Corpuscular Hemoglobin Concent 30.4 L Mean Corpuscular Volume 94.4 Mean Platelet Volume 9.5 # Monocytes # 0.8 Monocytes % 4.6 Neutrophils # 14.3 H Neutrophils % 81.9 H Nucleated Red Blood Cells # 0.0 Nucleated Red Blood Cells % 0.0 Phosphorus Level 4.0 Platelet Count 311 Potassium Level 4.6 Red Blood Count 3.38 L Red Cell Distribution Width 15.9 H Sodium Level 136 White Blood Count 17.5 H Medications Medications Current Medications Ondansetron HCl (Zofran Tab) 4 mg Q6H PRN PO NAUSEA AND/OR VOMITING; Start at 14:30 Docusate Sodium (Colace) 100 mg Q12H PRN PO CONSTIPATION; Start 05/12/16 at 14: 30 Magnesium Hydroxide (Milk Of Mag) 30 ml DAILY PRN PO CONSTIPATION; Start at 14:30 Zolpidem Tartrate (Ambien) 5 mg QHS PRN PO SLEEP; Start 05/12/16 at 14:30 Heparin Sodium (Porcine) (Heparin (5000 Units/0.5 ml)) 5,000 unit Q12 SC Last administered on 05/22/16 09:19; Admin Dose 5,000 UNIT; Start 05/12/16 at 21:00 Acetaminophen (Tylenol Tab) 650 mg Q6H PRN PO PAIN AND OR ELEVATED TEMP; Start 05/13/16 at 00:00 Carvedilol (Coreg) 12.5 mg BID PO Last administered on 05/22/16 09:10; Admin Dose 12.5 MG; Start 05/13/16 at 09:00 Clonidine (Catapres) 0.1 mg TID PO Last administered on 05/20/16 21:00; Admin Dose 0.1 MG; Start 05/13/16 at 09:00 Levalbuterol (Xopenex Hfa) 2 puff Q4H PRN INH WHEEZING AND SOB; Start 05/13/16 at 00:00 Minoxidil (Loniten) 5 mg BID PO Last administered on 05/21/16 22:09; Admin Dose 5 MG; Start 05/13/16 at 09:00 Nifedipine (Procardia Xl) 30 mg BID PO Last administered on 05/22/16 09:11; Admin Dose 30 MG; Start 05/13/16 at 09:00 Pantoprazole (Protonix Tab) 40 mg DAILY@06 PO Last administered on 05/22/16 06 :58; Admin Dose 40 MG; Start 05/13/16 at 06:00 Salmeterol Xinafoate/ Fluticasone (Advair 500/50 Diskus) 1 inh BID INH Last administered on 05/22/16 09:11; Admin Dose 1 INH; Start 05/13/16 at 09:00 Senna (Senokot) 1 tab DAILY PRN PO CONSTIPATION; Start 05/13/16 at 00:00 Tamsulosin HCl (Flomax) 0.4 mg HS PO Last administered on 05/21/16 22:09; Admin Dose 0.4 MG; Start 05/13/16 at 21:00 Tiotropium [place] (Spiriva) 1 inh BID INH Last administered on 05/22/16 09:10 ; Admin Dose 1 INH; Start 05/13/16 at 09:00 Valsartan (Diovan) 320 mg DAILY PO Last administered on 05/17/16 08:35; Admin Dose 320 MG; Start 05/13/16 at 09:00 Diagnostic Test (Pha) (Accucheck) 1 ea 02 XX Last administered on 05/13/16 02: 02; Admin Dose 1 EA; Start 05/13/16 at 02:00 Miscellaneous Information 1 ea NOTE XX ; Start 05/12/16 at 23:45 Glucose (Glutose) 15 gm Q15M PRN PO DECREASED GLUCOSE; Start 05/12/16 at 23:45 Glucose (Glutose) 22.5 gm Q15M PRN PO DECREASED GLUCOSE; Start 05/12/16 at 23: 45 Dextrose (D50w Syringe) 25 ml Q15M PRN IV DECREASED GLUCOSE; Start 05/12/16 at 23:45 Dextrose (D50w Syringe) 50 ml Q15M PRN IV DECREASED GLUCOSE; Start 05/12/16 at 23:45 Glucagon (Glucagen) 1 mg Q15M PRN IM DECREASED GLUCOSE; Start 05/12/16 at 23:45 Glucose (Glutose) 15 gm Q15M PRN BUCCAL DECREASED GLUCOSE; Start 05/12/16 at 23 :45 Multivit/Ca Carb/ B Cmplx/FA/Prenat (Katlyn-Michael) 1 tab DAILY PO Last administered on 05/22/16 09:09; Admin Dose 1 TAB; Start 05/15/16 at 09:00 Prednisolone (Prelone) 15 mg DAILY PO Last administered on 05/22/16t 09:10; Admin Dose 15 MG; Start 05/22/16 at 09:00 ANDRE SMITH MD May 22, 2016 13:55
--- NOTE | 2016-05-22 18:34 | HP ---
DATE OF ADMISSION: 05/12/2016 Dear Doctors: Mr. Kim is a 81-year-old gentleman known to our vascular surgery service for a longstanding history of end-stage renal disease in which he currently has a right chest wall catheter undergoing hemodialysis. The patient unfortunately has been in and out of the hospital secondary to respirator y distress and congestive heart failure over the past few months. He also has had a left upper extr emity AV fistula creation with a brachiobasilic fistula that we have been monitoring for maturation and for eventual use. Patient recently underwent an ultrasound of the fistula which had identified as having adequate flow volume and diameter in size. At the moment, the patient denies shortness of breath, chest pain, nausea, vomiting, fever or chills. He does have oxygen nasal cannula at 2 lite rs at baseline. REVIEW OF SYSTEMS: A 12-point review performed and negative except what is mentioned in the HPI. PAST MEDICAL HISTORY: Entails COPD, end-stage renal disease, interstitial lung disease, congestive heart failure, anxiety, depression, diabetes type 2, osteoarthritis, anemia of chronic disease, hyp ertension, dementia, chronic back pain and benign prostatic hypertrophy. PAST SURGICAL HISTORY: Chest wall catheter, left upper extremity AV fistula creation and coronary a rtery catheterization. FAMILY HISTORY: Noncontributory. SOCIAL HISTORY: Denies current alcohol, tobacco or illicit drug use. PHYSICAL EXAMINATION: GENERAL: Alert and oriented x3, no apparent distress. HEENT: Normocephalic, atraumatic. PERRLA, EOMI. Mucosa moist. NECK: Supple. No carotid bruit. PULMONARY: Coarse breath sounds bilaterally, no crackles. CARDIOVASCULAR: S1, S2 present. No murmurs. ABDOMEN: Soft, nontender, nondistended. Bowel sounds positive. EXTREMITIES: Left upper extremity palpable brachial pulse. Motor, sensory intact. Capillary refil l 2 to 3 seconds. Surgical scar well healed. Fistula with bruit and thrill present. ASSESSMENT AND PLAN: End-stage renal disease: It seems that the patient's left upper extremity AV fistula has matured appropriately and based on our recent ultrasound, he does have some increased ve locities near the anastomosis suggestive of neointimal hyperplasia. However, we will plan to contin ue for surveillance of this finding as an outpatient. At the moment, we will recommend for the ayan ent to have his fistula cannulated for dialysis use sessions. If he tolerates 3 sessions without an y issues, we will plan to remove the PermCath in coming weeks. Optimize vascular status (BP meds, d iet, nutrition, exercise, sugar control, antiplatelets). Discussed findings, plan and management with the patient with a certified manager women and the primary team. Thank you for allowing us to participate in the care of your patient. Please call if any questions . Dictated By: TAHIR SEGAL/CAMILO Conf#: [id number] DID#: [id number]
== END 2016-05-22 17:35 | DRG 291 ==
LOC: E/R 09:11 → UNDOADMIN 09:46 → TEL 09:46
PROVIDERS: ADMIT Family Medicine; ATTEND Family Medicine
PROC: 5A1D60Z (ICD-10-PCS; principal; 2016-05-12)
PROC: 5A09557 Assistance with Respiratory Ventilation, Greater than 96 Consecutive Hours, Continuous Positive Airway Pressure (ICD-10-PCS; 2016-05-12)
DX: I13.2 Hypertensive heart and chronic kidney disease with heart failure and with stage 5 chronic kidney disease, or end stage renal disease (principal); I50.33 Acute on chronic diastolic (congestive) heart failure; J96.01 Acute respiratory failure with hypoxia; J18.9 Pneumonia, unspecified organism; N18.6 End stage renal disease; E11.9 Type 2 diabetes mellitus without complications; N39.0 Urinary tract infection, site not specified; I95.3 Hypotension of hemodialysis; D50.9 Iron deficiency anemia, unspecified; J44.1 Chronic obstructive pulmonary disease with (acute) exacerbation; D63.8 Anemia in other chronic diseases classified elsewhere; Z99.2 Dependence on renal dialysis; N40.0 Benign prostatic hyperplasia without lower urinary tract symptoms; D72.829 Elevated white blood cell count, unspecified; F41.8 Other specified anxiety disorders; R63.4 Abnormal weight loss; Z68.24 Body mass index [BMI] 24.0-24.9, adult; K59.00 Constipation, unspecified; F60.3 Borderline personality disorder; Z95.1 Presence of aortocoronary bypass graft; Z87.891 Personal history of nicotine dependence; R07.9 Chest pain, unspecified; Z91.15 Patient's noncompliance with renal dialysis; Z95.5 Presence of coronary angioplasty implant and graft; J40 Bronchitis, not specified as acute or chronic; E03.9 Hypothyroidism, unspecified; I44.0 Atrioventricular block, first degree
CPT/HCPCS: 36415; 36600; 71010; 80048; 80053; 80061; 80069; 80162; 80198; 80202; 81001; 81003; 82550; 82553; 82803; 82962; 83036; 83605; 83735; 83880; 84100; 84443; 84484; 84560; 85025; 85378; 85610; 85651; 85730; 87040; 87070; 87081; 87086; 87502; 90935; 93005; 93931; 94640; 94660; 94664; 96374; 96375; J0692; J0886; J1580; J1644; J1720; J1815; J1940; J2930; J3370; J7510; P9047

== ENCOUNTER 2016-06-02 19:44 | Inpatient (IN) | payer MEDICARE, BC ==
[~2016-06-02] VITALS: Ht 157.5 cm; Wt 65.0 kg
[~2016-06-02 19:44] MED LIST changes: -ESOM40CA PO; -VALS160T20 PO
[2016-06-02 19:50] VITALS: Ht 157.5 cm; Wt 65.0 kg
--- NOTE | 2016-06-02 19:52 | ERA ---
ER Documentation Chief Complaint Date/Time DATE: 06/02/16 TIME: 19:51 Chief Complaint The patient is a 81-year-old male, presenting to the ER because of chest pain and low blood pressure during dialysis today. Therefore he did not complete dialysis and sent to the ER for further evaluation. The history is very limited due to patient clinical condition and language barrier. He does use of 2 L nasal cannula continuously and sleep with his CPAP at home. He does not smoke nor drink. He denies any chest pain or dyspnea in the ER. Past medical history: Chronic kidney disease, COPD, interstitial lung disease, history of CHF, anxiety, depression, diabetes mellitus, anemia, hypertension, dementia, chronic low back pain, BPH Past surgical history: Right chest hemodialysis catheter, left upper extremity AV fistula, stent PCI ROS All systems reviewed and are negative except as per history of present illness. Medications Home Meds Active Scripts Tiotropium [place]* (Spiriva*) 18 Mcg Cap.w.dev, 1 INH INH BID for 30 Days, #60 CAP Prov:HINA CASTILLO MD 04/28/16 Salmeterol Xinaf-Fluticasone* (Advair*) 500/50 Diskus Inhaler, 1 INH INH BID for 30 Days, #1 CAP.EC Prov:HINA CASTILLO MD 04/28/16 Pantoprazole* (Pantoprazole*) 40 Mg Tablet.dr, 40 MG PO DAILY@06 for 30 Days, # 30 BOX Prov:HINA CASTILLO MD 04/28/16 Nifedipine (Procardia Xl) 30 Mg Tab.er.24, 30 MG PO BID for 30 Days, #30 TAB Prov:HINA CASTILLO MD 04/28/16 Minoxidil* (Lonitin*) 2.5 Mg Tab, 5 MG PO BID for 30 Days, #60 TAB Prov:HINA CASTILLO MD 04/28/16 [Ipratropium 0.02% (Neb)] 0.5 MG/2.5 ML NEBU No Conflict Check, 0.5 MG HHN Q6H RESP THERAPY for 30 Days, #90 CAP Prov:HINA CASTILLO MD 04/28/16 Clonidine Hcl* (Clonidine Hcl*) 0.1 Mg Tab, 0.1 MG PO TID for 30 Days, #90 TAB Prov:HINA CASTILLO MD 04/28/16 Carvedilol* (Carvedilol*) 12.5 Mg Tablet, 12.5 MG PO BID for 30 Days, #60 TAB Prov:HINA CASTILLO MD 04/28/16 Albuterol Sulfate* (Albuterol Sulfate* Neb) 0.083%-3 Ml Neb, 2.5 MG HHN Q6HWA RESP THERAPY for 30 Days, #90 BLIST PACK Prov:HINA CASTILLO MD 04/28/16 Acetaminophen* (Tylenol*) 325 Mg Tablet, 650 MG PO Q6H Y for PAIN AND OR ELEVATED TEMP for 30 Days, #90 TAB Prov:HINA CASTILLO MD 04/28/16 Reported Medications [Heparin 5000U/0.5ML] No Conflict Check, 0.5 ML SC Q12 06/02/16 Prednisolone* (Prelone*) 15 Mg/5 Ml Solution, 15 MG PO DAILY, ML 06/02/16 Multivit/Ca Carb/B Cmplx/Fa* (Katlyn-Michael*) 1 Tab Tab, 1 TAB PO DAILY, TAB 06/02/16 Insulin Aspart (Novolog) 100 Unit/1 Ml Cartridge, 0 SQ SLIDING SCALE BEFORE MEALS; 200-250=2 UNITS, 251-300=4 UNITS, 301-350=6 UNITS, 351-400=8 UNITS,>400=10 UNITS AND CALL 06/02/16 Valsartan* (Diovan*) 160 Mg Tablet, 320 MG PO DAILY, TAB HOLD IF SBP<110;HR 06/02/16 Docusate Sodium* (Docusate Sodium*) 100 Mg Capsule, 100 MG PO Q12, #60 CAP 06/02/16 Calcium Acetate* (Calcium Acetate*) 667 Mg Capsule, 667 MG PO WITH MEALS, #30 CAP 06/02/16 Sennosides* (Senna Lax*) 8.6 Mg Tablet, 1 TAB PO DAILY Y for CONSTIPATION, TAB 01/13/16 Levalbuterol* (Xopenex* HFA) 15 Gm Inha, 2 PUFFS INH Q4H Y for WHEEZING AND SOB , INHALER 01/13/16 Tamsulosin Hcl* (Tamsulosin Hcl*) 0.4 Mg Cap.er.24h, 0.4 MG PO HS, CAP 11/28/15 Levothyroxine Sodium* (Levothyroxine Sodium*) 125 Mcg Tablet, 125 MCG PO BEFORE BREAKFAST, #30 TAB 11/28/15 Discontinued Reported Medications Valsartan* (Diovan*) 320 Mg Tablet, 320 MG PO DAILY, TAB HOLD FOR SBP<110 HR<60(HTN) 01/13/16 Clopidogrel Bisulfate* (Clopidogrel Bisulfate*) 75 Mg Tablet, 75 MG PO DAILY, # 30 TAB 11/28/15 Discontinued Scripts Epoetin [place] (Epogen) 10,000 Units/Ml Soln, 17556 UNITS SC MoWeFr@17 for 14 Days , #30 DAYSX 3 28 Prov:HINA CASTILLO MD 04/28/16 Allergies Allergies: Coded Allergies: No Known Allergy (Unverified , 06/02/16) PMhx/Soc Anesthesia Reaction: No Hx Neurological Disorder: No Hx Respiratory Disorders: Yes (CHF) Hx Psychiatric Problems: No Hx Miscellaneous Medical Probl: Yes (ANEMIA) Hx Alcohol Use: No Hx Substance Use: No Hx Tobacco Use: No Physical Exam Vitals Vital Signs Date Time Temp Pulse Resp B/P Pulse Ox O2 Delivery O2 Flow Rate FiO2 06/02/16 21:45 100 2.0 06/02/16 20:18 Nasal Cannula 2 06/02/16 20:00 69 18 156/64 99 Room Air 06/02/16 19:50 97.1 70 21 165/69 100 Physical Exam Const: No acute distress. Head: Atraumatic. Eyes: Normal Conjunctiva. ENT: Normal External Ears, Nose and Mouth. Neck: Full range of motion. No meningismus. Resp: Bilateral crackle Cardio: Regular rate and rhythm, no murmurs. Abd: Soft, non distended, normal bowel sounds, non tender. Skin: No petechiae or rashes. Back: No midline or flank tenderness. Ext: No cyanosis, or edema. Neur: Awake and alert. No focal deficit Psych: Normal Mood and Affect. Result Diagram: 06/02/16202906/02/162029 Results 24 hrs Laboratory Tests Test 06/02/16 20:30 06/02/16 21:00 Activated Partial Thromboplast Time 30.7Sec Anion Gap 15 Basophils # 0.110^3/ul Basophils % 0.6% Blood Morphology Comment Blood Urea Nitrogen 62mg/dl Calcium Level 8.5mg/dl Carbon Dioxide Level 29mmol/L Chloride Level 98mmol/L Creatinine 4.58mg/dl Eosinophils # 0.310^3/ul Eosinophils % 2.8% Glucose Level 91mg/dl Hematocrit 31.4% Hemoglobin 10.4g/dl INR International Normalized Ratio 1.07 Lymphocytes # 1.710^3/ul Lymphocytes % 15.9% Mean Corpuscular Hemoglobin 29.5pg Mean Corpuscular Hemoglobin Concent 33.0g/dl Mean Corpuscular Volume 89.4fl Mean Platelet Volume 7.0fl Monocytes # 0.810^3/ul Monocytes % 7.3% Neutrophils # 8.010^3/ul Neutrophils % 73.4% Nucleated Red Blood Cells # 0.010^3/ul Nucleated Red Blood Cells % 0.0/100WBC Platelet Count 09996^3/UL Potassium Level 3.9mmol/L Prothrombin Time 13.9Sec Prothrombin Time Ratio 1.1 Red Blood Count 3.5110^6/ul Red Cell Distribution Width 17.9% Sodium Level 138mmol/L Troponin I 0.031ng/ml White Blood Count 10.910^3/ul Arterial Blood HCO3 26.9mmol/L Arterial Blood Base Excess 2.2mmol/L Arterial Blood Oxygen Saturation 97.1mmHG Nikita Test ACCEPTAB Arterial Blood Gas Puncture Site Right Radial Arterial Blood Carboxyhemoglobin 0% Arterial Blood Date Drawn 06/02/2016 9:46:53 PM Arterial Blood Methemoglobin 0.2% Arterial Blood pCO2 (Temp correct) 42.0mmhg Arterial Blood pH (Temp corrected) 7.424 Arterial Blood pO2 (Temp corrected) 99.9mmHG Blood Gas A-a O2 Differential 42.9mmHg Blood Gas Modality NASAL CANNULA Blood Gas Notified Time 06/02/2016 10:01:33 PM Blood Gas Notified Whom AA Blood Gas Specimen Source Blood arterial Blood Gas Temperature 37.0C FiO2 27.0% Oxyhemoglobin Percent 96.9% Total Hemoglobin 11.2g/dl Procedures/[id number] [place], [place] [id number] Radiology Main Line: [phone] DIAGNOSTIC IMAGING REPORT Patient: DORI ARNDT : 1935 Age: 81 Sex: M MR #: [id number] DOS: 06/02/162004 Ordering MD: TIA SALAS MD Location: E/R Room/Bed: PROCEDURE: XR Chest. CLINICAL INDICATION: Shortness of breath. TECHNIQUE: Single frontal view. COMPARISON: 05/21/2016. FINDINGS: There is a tunneled right internal jugular vein dialysis catheter with the tip in the right atrium. Mild interstitial disease bilaterally is unchanged consistent with pulmonary edema. The heart is enlarged. There is calcification in the aorta consistent with atherosclerosis. There is no pleural effusion. There is no pneumothorax. IMPRESSION: 1. No change from 05/21/2016. RPTAT: QQ .Kal Bowens MD, Date Time Electronically viewed and signed by .Kal Bowens MD, MD on 06/02/2016 20:39 .R/ CC: TIA SALAS MD EKG: Read by emergency physician Rate/Rhythm: Normal Sinus Rhythm 70 beats/min QRS, ST, T-waves: No ST elevation, no T inversion, first-degree AV block, P SVC Impression: Abnormal EKG MEDICAL MAKING DECISION: The patient is a 81-year-old male, presenting with acute chest pain of unclear etiology. He was treated with aspirin 160 mg p.o.. The differential diagnoses considered include but are not limited to acute coronary syndrome, acute myocardial infarction, pericarditis, pulmonary embolism , aortic dissection, pneumonia, pleural effusion, pneumothorax, GERD, chest wall pain. Departure Diagnosis: Primary Impression: Chest pain Condition: Stable Comments I discussed the findings with the patient. I discussed the patient with his physician Dr. Hurst who was made aware of the lab, the treatment, the patient condition. The patient is admitted to telemetry for 24 hour observation at 9:45 PM TIA SALAS MD Jun 02, 2016 19:52
--- NOTE | 2016-06-02 20:39 | RADRPT ---
PROCEDURE: XR Chest. CLINICAL INDICATION: Shortness of breath. TECHNIQUE: Single frontal view. COMPARISON: 05/21/2016. FINDINGS: There is a tunneled right internal jugular vein dialysis catheter with the tip in the right atrium. Mild interstitial disease bilaterally is unchanged consistent with pulmonary edema. The heart is enlarged. There is calcification in the aorta consistent with atherosclerosis. There is no pleural effusion. There is no pneumothorax. IMPRESSION: 1. No change from 05/21/2016. RPTAT: QQ .Kal Bowens MD, MD Date Time Electronically viewed and signed by .Kal Bowens MD, MD on 06/02/2016 20:39 .R/
[2016-06-02 20:45] LABS: BASOPHIL # 0.1 10^3/ul (0.0-0.1); BASOPHILS % 0.6 % (0.0-2.0); EOSINOPHILS # 0.3 10^3/ul (0.0-0.5); EOSINOPHILS % 2.8 % (0.0-7.0); HEMATOCRIT 31.4 % (42.0-52.0); HEMOGLOBIN 10.4 g/dl (14.0-18.0); INR 1.07; LYMPHOCYTES # 1.7 10^3/ul (0.8-2.9); LYMPHOCYTES % 15.9 % (15.0-51.0); MEAN CORPUSCULAR HEMOGLOBIN 29.5 pg (29.0-33.0); MEAN CORPUSCULAR VOLUME 89.4 fl (82.0-101.0); MONOCYTE # 0.8 10^3/ul (0.3-0.9); MONOCYTES % 7.3 % (0.0-11.0); NEUTROPHILS % 73.4 % (39.0-77.0); PLATELET COUNT 253 10^3/UL (140-440); PROTIME 13.9 Sec (12.2-14.2); PT RATIO 1.1; RED BLOOD COUNT 3.51 10^6/ul (4.70-6.10); RED CELL DISTRIBUTION WIDTH 17.9 % (11.5-14.5); UNCORRECTED WBC 10.9 10^3/ul (4.8-10.8); WHITE BLOOD COUNT 10.9 10^3/ul (4.8-10.8)
[2016-06-02 20:46] LABS: PARTIAL THROMBOPLASTIN TIME 30.7 Sec (25.0-35.0)
[2016-06-02 20:51] LABS: POTASSIUM 3.9 mmol/L (3.5-5.1)
[2016-06-02 20:53] LABS: CONDITION 1; LH ANALYZER COMMENTS 1
[2016-06-02 20:54] LABS: CREATININE 4.58 mg/dl (0.61-1.24)
[2016-06-02 20:55] LABS: CALCIUM 8.5 mg/dl (8.4-10.2)
[2016-06-02] MEDS ORDERED: CALC667C PO (20:58)
[2016-06-02] MEDS ORDERED: DOCU-159 PO (20:59)
[2016-06-02 21:06] LABS: TROPONIN-I 0.031 ng/ml (0.00-0.12)
[2016-06-02] MEDS ORDERED: VALS160T20 PO (21:07)
[2016-06-02] MEDS ORDERED: INSU100C3 SQ (21:11)
[2016-06-02] MEDS ORDERED: NEPH PO (21:13)
[2016-06-02] MEDS ORDERED: PRED15SO PO (21:15)
[2016-06-02] MEDS ORDERED: HEPARIN SC (21:18)
[2016-06-02] MEDS ORDERED: ASPIRIN 81 MG TAB PO ONE (22:00)
[2016-06-02 22:01] LABS: AADO2 Arterial 42.9 mmHg (7.0-24.0); Allen Test ACCEPTAB; Arterial Base Excess 2.2 mmol/L (-3.0-3); Arterial COHb 0 % (0.0-3.0); Arterial Fraction of Oxyhgb 96.9 % (93.0-99.0); Arterial HCO3 26.9 mmol/L (22.0-26.0); Arterial MetHb 0.2 % (0.0-1.5); Arterial Total Hemglobin 11.2 g/dl (12.0-18.0); MODE NASAL CANNULA
[2016-06-02 22:04] VITALS: TEMP 98.2
[2016-06-02 22:45] VITALS: PULSE 70
[2016-06-02 23:00] VITALS: BP 160/67; PULSE 72; RESP 18
[2016-06-02] MEDS ORDERED: ACETAMINOPHEN 325 MG TAB PO PRN (23:00)
[2016-06-02] MEDS ORDERED: SENNA TAB PO PRN (23:00)
[2016-06-03] VITALS (21 sets, daily range): BP systolic 129–155; BP diastolic 65–79; PULSE 65–86; RESP 17–21
[2016-06-03] MEDS: ACCUCHECK XX SCH (01:12)
[2016-06-03] MEDS ORDERED: DEXTROSE 50% 50 ML SYRINGE IV PRN ×2 (07:00)
[2016-06-03] MEDS ORDERED: GLUCAGON 1 MG INJ IM PRN (07:00)
[2016-06-03] MEDS ORDERED: GLUCOSE GEL 15 GRAM TUBE BUCCAL PRN (07:00)
[2016-06-03] MEDS ORDERED: GLUCOSE GEL 15 GRAM TUBE PO PRN ×2 (07:00)
--- NOTE | 2016-06-03 07:53 | HP ---
Date/Time of Note Date/Time of Note DATE: 06/03/16 TIME: 07:43 Assessment/Plan VTE Prophylaxis VTE Prophylaxis Intervention: ambulation, anti-embolic stocking VTE Contraindication Reason: peripheral vascular disease Lines/Catheters IV Catheter Type (from Nrsg): Saline Lock [place] line still needed: No Urinary Cath still in place: No Reason Cath still needed: urinary retention Assessment/Plan Assessment/Plan 1. Acute on chronic respiratory insufficiency, worsening of wheezing.Respiratory distress-failure of recieving [id number] breathing Rx in SNF. 2.. Leukocytosis improved 3. Chest pain during HD today(s/p 2 angiographies and stenting) cardiology consult. 4. End-stage renal disease-on HD-Discuses with . 5. Anxiety, depression with dissatisfaction 6. Diabetes type 2-better controlled 7. Osteoarthritis. 8. Anemia of chronic disease-H/H stable. 9. Status post multiple units of packed red blood cell transfusions. 10. Weight loss-more than 50lb in 8 months. 11. Hypertension-out of control during respiratory distress. 12. Memory impairment. 13. Major depression. 14. Back pain. 15. Benign prostatic hypertrophy. 16. S/P left forearm a/v shunt placement for dialysis-functions well , not mature yet. 17. S/P right Jugular vein cannulation for dialysis-no signs of infection. 18. Hypoxemia with hypercapnia on home 02 and BIPAP. 19. Anxiety; borderline personality; 20. Excessive thirst. 21. Constipation CXR: report;There is a tunneled right internal jugular vein dialysis catheter with the tip in the right atrium. Mild interstitial disease bilaterally is unchanged consistent with pulmonary edema. The heart is enlarged. There is calcification in the aorta consistent with atherosclerosis. There is no pleural effusion. There is no pneumothorax. Cont'd Hospitalization Reason: respiratory failure and cp. HPI/ROS Admit Date/Time Admit Date/Time Worsening of sob.Somehow they didn't give me a q6 hours breathing treatment. After dialysis my pressure sensation got worse and I was soffocating. 1.5liters karen removed during HD. Now I am perspirating too much. I gained weight. Dry cough persists. I can't make even 3-4 steps to go to toilet. Jun 02, 2016 at 21:48 ROS Subjective hx not possible: pt critical Constitutional: chills, diaphoresis (extensive.), fatigue, nausea, weight change (increased 3-4 lb x 2 weeks.) Eyes: discharge, redness (paleness.), No no complaints, No other, No pain, No visual change ENT: congestion, sore throat, No bleeding, No discharge, No dysphagia, No no complaints, No other, No pain Respiratory: cough, shortness of breath, No no complaints, No other, No pain, No pleuritic pain, No sputum, No wheezing Cardiovascular: chest pain, lightheadedness, orthopenea, palpitations, paroxysmal nocturnal dyspnea Gastrointestinal: constipation, flatus, nausea, passing stool Musculoskeletal: back pain, bone/joint pain, neck pain, No no complaints, No other, No restricted range of motion, No swelling Skin: pruritis, rash, No bruising, No erythema, No laceration, No no complaints, No other, No skin lesions Neurologic: confusion, dizziness, headache, syncope, No focal-weakness, No no complaints, No other, No seizure Endocrine: dry skin, polydypsia, weight change Lymphatic: No adenopathy, No lymphadema, No no complaints, No other, No tender nodes Psychological: anxiety, confusion, depression, No nl mood/affect, No no complaints, No other, No suicidal Immunologic: pruritis PMH/Family/Social Past Medical History Medical History: angina, coronary artery disease, diabetes, GERD, high cholesterol, hypertension, hypothyroid, renal disease, urinary tract infection Past Surgical History Past Surgical Hx: angioplasty, coronary bypass surgery, endoscopy, other Family History Significant Family History: COPD, diabetes, hypertension, lung disease, renal disease, other Social History Alcohol Use: none Smoking Status: Never smoker Drug Use: none Exam/Review of Systems Vital Signs Vitals Vital Signs Date Time Temp Pulse Resp B/P Pulse Ox O2 Delivery O2 Flow Rate FiO2 06/03/16 04:50 98.0 74 21 155/70 97 06/02/16 23:00 Nasal Cannula 2.0 Exam Constitutional: alert, distress, well developed, No frail, No non-verbal, No oriented, No other Psych: anxiety, confusion, depression, No nl mood/affect, No no complaints, No other, No suicidal Head: atraumatic, No hematomas, No lacerations, No normocephalic, No other Eyes: EOMI, PERRL, No fundi, disc, No icteric, No nl conjunctiva, No nl lids, No nl sclera, No other ENMT: tympanic membranes, No intubated, No mucosa pink and moist, No nl external ears & nose, No nl lips & teeth, No nl nasal mucosa & septum, No other Neck: bruits, jvd, nuchal rigidity, No masses, No non-tender, No other, No supple, No thyromegaly Respiratory: congested cough, diminished breath sounds, No clear to auscultation, No crackles/rales, No intercostal retraction, No labored breathing, No normal air movement, No other, No respirations, No tactile fremitus, No wheezing Cardiovascular: bruits, diastolic murmur, irregular rhythm, jugular venous distention (JVD), systolic murmur Gastrointestinal: bowel sounds, distended, nl liver, spleen, non-tender, soft, No ascites, No firm, No hepatomegaly, No mass, No other, No rebound or guarding, No splenomegaly, No surgical scars, No tender Genitourinary - Male: No CVA tenderness, No discharge, No nl penis, No nl scrotum, No other Musculoskeletal: joint tenderness, muscle tone, muscle weakness Neurological: ADMISSIONS DIRECTOR II-XII intact (hearing impairment.), nl mental status ( Forgetful, anxious,tense, irritable, dissatisfied, but states of doing better than before.) Skin: diaphoresis, ecchymosis Lymph: No enlarged, No nl lymph nodes, No nontender, No other Labs Result Diagram: 06/02/16202906/02/16 2030 Medications Medications Current Medications Acetaminophen (Tylenol Tab) 650 mg Q6H PRN PO PAIN AND OR ELEVATED TEMP; Start 06/02/16 at 23:00 Carvedilol (Coreg) 12.5 mg BID PO ; Start 06/03/16 at 09:00 Clonidine (Catapres) 0.1 mg TID PO ; Start 06/03/16 at 09:00 Docusate Sodium (Colace) 100 mg Q12 PO ; Start 06/03/16 at 09:00 Minoxidil (Loniten) 5 mg BID PO ; Start 06/03/16 at 09:00 Nifedipine (Procardia Xl) 30 mg BID PO ; Start 06/03/16 at 09:00 Prednisolone (Prelone (Ped)) 15 mg DAILY PO ; Start 06/03/16 at 09:00 Salmeterol Xinafoate/ Fluticasone (Advair 500/50 Diskus) 1 inh BID INH ; Start 06/03/16 at 09:00 Senna (Senokot) 1 tab DAILY PRN PO CONSTIPATION; Start 06/02/16 at 23:00 Tamsulosin HCl (Flomax) 0.4 mg HS PO ; Start 06/03/16 at 21:00 Tiotropium [place] (Spiriva) 1 inh BID INH ; Start 06/03/16 at 09:00 Valsartan (Diovan) 320 mg DAILY PO ; Start 06/03/16 at 09:00 Diagnostic Test (Pha) (Accucheck) 1 ea 02 XX ; Start 06/03/16 at 02:00 Miscellaneous Information 1 ea NOTE XX ; Start 06/03/16 at 07:00 Glucose (Glutose) 15 gm Q15M PRN PO DECREASED GLUCOSE; Start 06/03/16 at 07:00 Glucose (Glutose) 22.5 gm Q15M PRN PO DECREASED GLUCOSE; Start 06/03/16 at 07: 00 Dextrose (D50w Syringe) 25 ml Q15M PRN IV DECREASED GLUCOSE; Start 06/03/16 at 07:00 Dextrose (D50w Syringe) 50 ml Q15M PRN IV DECREASED GLUCOSE; Start 06/03/16 at 07:00 Glucagon (Glucagen) 1 mg Q15M PRN IM DECREASED GLUCOSE; Start 06/03/16 at 07:00 Glucose (Glutose) 15 gm Q15M PRN BUCCAL DECREASED GLUCOSE; Start 06/03/16 at 07 :00 HINA CASTILLO MD Jun 03, 2016 07:53
[2016-06-03] MEDS: INSULIN ASPART [NOVOLOG] 3 ML PEN SC SCH ×4 (08:00→20:14)
[2016-06-03] MEDS: CALCIUM ACETATE 667 MG CAP PO SCH ×3 (08:11→17:55)
[2016-06-03] MEDS: LEVOTHYROXINE 125 MCG TAB PO SCH (08:11)
[2016-06-03] MEDS: VALSARTAN 160 MG TAB PO SCH (08:44)
[2016-06-03] MEDS: MINOXIDIL 2.5 MG TAB PO SCH ×2 (08:45→20:29)
[2016-06-03] MEDS: NIFEdipine (XL) 30 MG TAB PO SCH ×2 (08:45→20:30)
[2016-06-03] MEDS: ALBUTEROL 0.083% (NEB) 2.5 MG/3 ML AMP HHN SCH ×3 (08:49→21:34)
--- NOTE | 2016-06-03 09:26 | CONS ---
DATE OF ADMISSION: 06/02/2016 DATE OF CONSULTATION: TYPE. OF CONSULTATION: Renal consultation note. Thank you very much for allowing me to evaluate this 81-year-old male admitted with shortness of janett ath and known renal insufficiency. HISTORICAL EVENTS: As you well know, this patient has had recurrent admissions here for symptoms of underlying chronic obstructive pulmonary disease, interstitial lung disease, and congestive heart f ailure. He was on dialysis earlier today, then he became increasingly short of breath. He was fink sported to [facility] and admitted. Presently he remains mildly short of breath. Denie s any chest pain, nausea, vomiting, or abdominal pain. PAST MEDICAL HISTORY: 1. 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 Histology revealed end-stage disease, and at that time dialysis was instituted. 2. Hypertension that has been well controlled. 3. Interstitial and chronic obstructive lung disease. 4. Known coronary artery disease, having a right coronary stent placed in 11/2015. Followup angiog madonna in 11/2015 revealed no other critical lesion and the stent to be patent. 5. History of urinary tract infection. MEDICATIONS: 1. Albuterol p.r.n. 2. Aspirin 162 mg per day. 3. Coreg 12.5 b.i.d. 4. Clonidine p.r.n. 5. Plavix 75 mg per day. 6. Spiriva inhaler. 7. Synthroid 125 mcg per day. 8. Minoxidil 5 b.i.d. 9. Procardia 30 mg per day. 10. Insulin sliding scale. 11. Protonix 40 per day. 12. Flomax 0.4 per day. 13. Diovan 320 mg per day 14. Ambien 5 mg at bedtime p.r.n. PHYSICAL EXAMINATION: GENERAL: Reveals a chronically ill male. VITAL SIGNS: BP 138/80, pulse 70, respirations 20, he was afebrile. EYES: Extraocular muscles were full. NOSE, MOUTH, AND THROAT: Normal. NECK: Supple. No jugular venous distention, thyroid enlargement, or adenopathy. LUNGS: Basilar rales cell without wheezes or rhonchi. HEART: Rhythm regular, I/ systolic murmur. No third or fourth sound. ABDOMEN: Nontender. Liver and spleen were not palpable. No masses or tenderness were noted. EXTREMITIES: No edema. Calves nontender. IMPRESSION: 1. Recurrent shortness of breath secondary to mild congestive heart failure, interstitial and chron ic obstructive lung disease. 2. Hypertension that has been well controlled, at least during the last 4 to 6 weeks. 3. 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 4. Diabetes, adult onset. PLAN: We will plan on dialyzing him today and monitor him throughout. He may need another dialysis tomorrow, but we will decide this tomorrow morning. Dictated By: TRUE RANDALL/CAMILO Conf#: [id number] DID#: [id number]
[2016-06-03] MEDS: TIOTROPIUM 18 MCG CAPSULE INHA DEV INH SCH ×2 (09:49→20:10)
[2016-06-03] MEDS: SALMETEROL/FLUTICASONE 500/50 INHA INH SCH ×2 (09:49→20:09)
[2016-06-03] MEDS: MULTIVIT/CA CARB/B CMPLX/FA TAB PO SCH (09:50)
[2016-06-03] MEDS: DOCUSATE SODIUM 100 MG CAP PO SCH ×2 (09:50→20:11)
[2016-06-03] MEDS: predniSOLONE (3 MG/ML PO SYG) PO SCH (09:50)
[2016-06-03] MEDS: TAMSULOSIN (SR) 0.4 MG CAP PO SCH (20:11)
[2016-06-04] VITALS (12 sets, daily range): BP systolic 151–197; BP diastolic 61–82; PULSE 70–80; RESP 18–20
[2016-06-04] MEDS: ACCUCHECK XX SCH (01:03)
[2016-06-04 07:37] LABS: CALCIUM 8.2 mg/dl (8.4-10.2); PHOSPHORUS 3.3 mg/dl (2.5-4.9)
[2016-06-04] MEDS: CALCIUM ACETATE 667 MG CAP PO SCH ×3 (07:51→17:29)
[2016-06-04] MEDS: LEVOTHYROXINE 125 MCG TAB PO SCH (07:51)
--- NOTE | 2016-06-04 07:59 | CONS ---
Date/Time of Note Date/Time of Note DATE: 06/04/16 TIME: 07:58 Assessment/Plan Assessment/Plan Additional Assessment/Plan 1. CHF resolved with HD 2. CKD, to have HD tomm 3. Interstitial and COPD, rx with daily steroids (po) Consultation Date/Type/Reason Admit Date/Time Jun 02, 2016 at 21:48 Initial Consult Date Detailed Summary Respiratory: shortness of breath (is mild) Cardiovascular: No chest pain, No edema Gastrointestinal: no complaints Genitourinary: no complaints Exam/Review of Systems Vital Signs Vitals Vital Signs Date Time Temp Pulse Resp B/P Pulse Ox O2 Delivery O2 Flow Rate FiO2 06/04/16 04:29 98.4 70 18 151/70 96 Nasal Cannula 2.0 Intake and Output 06/03/16 06/03/16 06/04/16 15:00 23:00 07:00 Intake Total 1350 ml Output Total 3600 ml Balance -2250 ml Exam Neck: No jvd Respiratory: diminished breath sounds (few rales at bases, dry) Cardiovascular: regular rate and rhythm, No S3, No S4 Gastrointestinal: soft Extremities: No edema (and no calf tend) Results Result Diagram: 06/02/16202906/04/1627 Results 24 hrs Laboratory Tests Test 06/03/16 08:09 06/03/16 12:14 06/03/16 17:22 06/03/16 20:03 Bedside Glucose 78 121 120 183 Test 06/04/16 06:27 Anion Gap 17 H Blood Urea Nitrogen 60 H Calcium Level 8.2 L Carbon Dioxide Level 28 Chloride Level 98 Creatinine 5.00 H Glucose Level 87 Phosphorus Level 3.3 Potassium Level 4.0 Sodium Level 139 Medications Medications Current Medications Acetaminophen (Tylenol Tab) 650 mg Q6H PRN PO PAIN AND OR ELEVATED TEMP; Start 06/02/16 at 23:00 Carvedilol (Coreg) 12.5 mg BID PO ; Start 06/03/16 at 09:00 Clonidine (Catapres) 0.1 mg TID PO ; Start 06/03/16 at 09:00 Docusate Sodium (Colace) 100 mg Q12 PO Last administered on 06/03/16t 20:11; Admin Dose 100 MG; Start 06/03/16 at 09:00 Minoxidil (Loniten) 5 mg BID PO ; Start 06/03/16 at 09:00 Nifedipine (Procardia Xl) 30 mg BID PO ; Start 06/03/16 at 09:00 Prednisolone (Prelone (Ped)) 15 mg DAILY PO Last administered on 06/03/16 09: 50; Admin Dose 15 MG; Start 06/03/16 at 09:00 Salmeterol Xinafoate/ Fluticasone (Advair 500/50 Diskus) 1 inh BID INH Last administered on 06/03/16 20:09; Admin Dose 1 INH; Start 06/03/16 at 09:00 Senna (Senokot) 1 tab DAILY PRN PO CONSTIPATION; Start 06/02/16 at 23:00 Tamsulosin HCl (Flomax) 0.4 mg HS PO Last administered on 06/03/16 20:11; Admin Dose 0.4 MG; Start 06/03/16 at 21:00 Tiotropium [place] (Spiriva) 1 inh BID INH Last administered on 06/03/16 20:10 ; Admin Dose 1 INH; Start 06/03/16 at 09:00 Valsartan (Diovan) 320 mg DAILY PO ; Start 06/03/16 at 09:00 Diagnostic Test (Pha) (Accucheck) 1 ea 02 XX ; Start 06/03/16 at 02:00 Miscellaneous Information 1 ea NOTE XX ; Start 06/03/16 at 07:00 Glucose (Glutose) 15 gm Q15M PRN PO DECREASED GLUCOSE; Start 06/03/16 at 07:00 Glucose (Glutose) 22.5 gm Q15M PRN PO DECREASED GLUCOSE; Start 06/03/16 at 07: 00 Dextrose (D50w Syringe) 25 ml Q15M PRN IV DECREASED GLUCOSE; Start 06/03/16 at 07:00 Dextrose (D50w Syringe) 50 ml Q15M PRN IV DECREASED GLUCOSE; Start 06/03/16 at 07:00 Glucagon (Glucagen) 1 mg Q15M PRN IM DECREASED GLUCOSE; Start 06/03/16 at 07:00 Glucose (Glutose) 15 gm Q15M PRN BUCCAL DECREASED GLUCOSE; Start 06/03/16 at 07 :00 Multivit/Ca Carb/ B Cmplx/FA/Prenat (Katlyn-Michael) 1 tab DAILY PO Last administered on 06/03/16 09:50; Admin Dose 1 TAB; Start 06/03/16 at 09:00 TRUE GTZ MD Jun 04, 2016 07:59
[2016-06-04] MEDS: INSULIN ASPART [NOVOLOG] 3 ML PEN SC SCH ×4 (08:00→21:00)
[2016-06-04 08:03] LABS: BASOPHILS % 0.4 % (0.0-2.0); EOSINOPHILS # 0.3 10^3/ul (0.0-0.5); EOSINOPHILS % 2.9 % (0.0-7.0); HEMOGLOBIN 9.4 g/dl (14.0-18.0); LYMPHOCYTES # 1.8 10^3/ul (0.8-2.9); LYMPHOCYTES % 21.2 % (15.0-51.0); MEAN CORPUSCULAR HGB CONC 31.3 g/dl (32.0-37.0); MEAN CORPUSCULAR VOLUME 92.6 fl (82.0-101.0); MEAN PLATELET VOLUME 9.6 fl (7.4-10.4); MONOCYTE # 0.9 10^3/ul (0.3-0.9); MONOCYTES % 9.9 % (0.0-11.0); NEUTROPHIL # 5.6 10^3/ul (1.6-7.5); NEUTROPHILS % 64.9 % (39.0-77.0); PLATELET COUNT 179 10^3/UL (140-415); RED BLOOD COUNT 3.24 10^6/ul (4.70-6.10); RED CELL DISTRIBUTION WIDTH 15.9 % (11.5-14.5); WHITE BLOOD COUNT 8.6 10^3/ul (4.8-10.8)
[2016-06-04] MEDS: ALBUTEROL 0.083% (NEB) 2.5 MG/3 ML AMP HHN SCH ×3 (08:57→20:02)
[2016-06-04] MEDS: NIFEdipine (XL) 30 MG TAB PO SCH ×3 (09:00→21:15)
[2016-06-04] MEDS: MINOXIDIL 2.5 MG TAB PO SCH ×2 (09:00→21:14)
[2016-06-04] MEDS: VALSARTAN 160 MG TAB PO SCH ×2 (09:00→17:45)
[2016-06-04] MEDS: SALMETEROL/FLUTICASONE 500/50 INHA INH SCH ×2 (09:47→21:16)
[2016-06-04] MEDS: TIOTROPIUM 18 MCG CAPSULE INHA DEV INH SCH ×2 (09:47→21:16)
[2016-06-04] MEDS: predniSOLONE (3 MG/ML PO SYG) PO SCH (09:48)
[2016-06-04] MEDS: DOCUSATE SODIUM 100 MG CAP PO SCH ×2 (09:48→21:15)
[2016-06-04] MEDS: MULTIVIT/CA CARB/B CMPLX/FA TAB PO SCH (09:50)
--- NOTE | 2016-06-04 10:47 | PN ---
Date/Time of Note Date/Time of Note DATE: 06/04/16 TIME: 10:42 Assessment/Plan VTE Prophylaxis VTE Prophylaxis Intervention: ambulation, anti-embolic stocking VTE Contraindication Reason: peripheral vascular disease Lines/Catheters IV Catheter Type (from Nrsg): Saline Lock Central line still needed: No Urinary Cath still in place: No Reason Cath still needed: urinary retention Assessment/Plan Assessment/Plan 1. Acute on chronic respiratory insufficiency, improving. 3. Chest pain during HD today(s/p 2 angiographies and stenting) cardiology consult. 4. End-stage renal disease-on HD-Discuses with . 5. Anxiety, depression with dissatisfaction 6. Diabetes type 2-better controlled 7. Osteoarthritis. 8. Anemia of chronic disease-H/H stable. 9. Status post multiple units of packed red blood cell transfusions. 10. Weight loss-more than 60lb in 8 months. 11. Hypertension-out of control during respiratory distress. 12. Memory impairment. 13. Major depression. 14. Back pain. 15. Benign prostatic hypertrophy. 16. S/P left forearm a/v shunt placement for dialysis-functions well , not mature yet. 17. S/P right Jugular vein cannulation for dialysis-no signs of infection. 18. Hypoxemia with hypercapnia on home 02 and BIPAP. 19. Anxiety; borderline personality; 20. Excessive thirst. 21. Constipation CXR: report;There is a tunneled right internal jugular vein dialysis catheter with the tip in the right atrium. Mild interstitial disease bilaterally is unchanged consistent with pulmonary edema. The heart is enlarged. There is calcification in the aorta consistent with atherosclerosis. There is no pleural effusion. There is no pneumothorax. Cont'd Hospitalization Reason: hd;resp. care. Subjective 24 Hr Interval Summary Free Text/Dictation I feel better but I am very week.Not enough air. Constitutional: chills, diaphoresis, disoriented, poor po, requiring O2, No febrile, No improved, No no complaints, No other, No requiring IVF Eyes: discharge, redness, No no complaints, No other, No pain, No visual change ENT: dysphagia, sore throat, No bleeding, No congestion, No discharge, No no complaints, No other, No pain Respiratory: cough, shortness of breath, wheezing, No no complaints, No other, No pain, No pleuritic pain, No sputum Cardiovascular: chest pain, lightheadedness, orthopenea, palpitations ( improved.), paroxysmal nocturnal dyspnea Gastrointestinal: constipation, decreased appetite, nausea, pain, passing stool , No blood, No diarrhea, No flatus, No no complaints, No other, No vomiting Genitourinary: dysuria, flank pain, No bleeding, No discharge, No hematuria, No no complaints, No other Musculoskeletal: back pain, bone/joint pain, neck pain, No no complaints, No other, No restricted range of motion, No swelling Skin: bruising, pruritis, rash, No erythema, No laceration, No no complaints, No other, No skin lesions Neurologic: confusion, dizziness, headache, other (improving.) Exam/Review of Systems Vital Signs Vitals Vital Signs Date Time Temp Pulse Resp B/P Pulse Ox O2 Delivery O2 Flow Rate FiO2 06/04/16 08:58 80 20 96 Nasal Cannula 2.0 06/04/16 08:00 97.8 157/61 Intake and Output 06/03/16 06/03/16 06/04/16 15:00 23:00 07:00 Intake Total 1350 ml Output Total 3600 ml Balance -2250 ml Exam Constitutional: alert, frail, oriented, other (not following days.) Psych: anxiety, confusion, depression, No nl mood/affect, No no complaints, No other, No suicidal Head: atraumatic, normocephalic, No hematomas, No lacerations, No other Eyes: EOMI, PERRL, nl lids, No fundi, disc, No icteric, No nl conjunctiva, No nl sclera, No other ENMT: tympanic membranes, No intubated, No mucosa pink and moist, No nl external ears & nose, No nl lips & teeth, No nl nasal mucosa & septum, No other Neck: bruits, jvd, supple, No masses, No non-tender, No nuchal rigidity, No other, No thyromegaly Respiratory: congested cough, diminished breath sounds, labored breathing, other (on 3 l/min 02.), respirations, tactile fremitus, No clear to auscultation, No crackles/rales, No intercostal retraction, No normal air movement, No wheezing Cardiovascular: bruits, irregular rhythm, systolic murmur, No S3, No S4, No diastolic murmur, No edema, No gallop, No jugular venous distention (JVD), No murmurs/extra sounds, No nl pulses, No other, No regular rate and rhythm, No rub Gastrointestinal: distended, nl liver, spleen, soft, No ascites, No bowel sounds, No firm, No hepatomegaly, No mass, No non-tender , No other, No rebound or guarding, No splenomegaly, No surgical scars, No tender Genitourinary - Male: nl penis, nl scrotum, No CVA tenderness, No discharge, No other Musculoskeletal: joint tenderness, muscle tone, muscle weakness, No nl extremities to inspection, No nl gait and stance, No other, No range of motion, No spine non-tender, No swelling Extremities: other (left a/v shunt drill palpable.), pitting pedal edema, No calf tenderness, No clubbing, No cyanosis, No edema, No normal pulses, No palpable cord, No tenderness Neurological: 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 II-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, confused, lethargic, numbness, No DTR's symmetric, No focal weakness, No nl mental status, No nl speech, No nl strength, No other, No reflexes, No unresponsive Skin: rash or lesions, No diaphoresis, No ecchymosis, No laceration, No nl turgor, No other, No puncture Lymph: No enlarged, No nl lymph nodes, No nontender, No other Results Result Diagram: 06/04/16 0627 06/04/16 0627 Results 24 hrs Laboratory Tests Test 06/03/16 12:14 06/03/16 17:22 06/03/16 20:03 06/04/16 06:27 Bedside Glucose 121 120 183 Anion Gap 17 H Basophils # 0.0 Basophils % 0.4 Blood Urea Nitrogen 60 H Calcium Level 8.2 L Carbon Dioxide Level 28 Chloride Level 98 Creatinine 5.00 H Eosinophils # 0.3 Eosinophils % 2.9 Glucose Level 87 Hematocrit 30.0 L Hemoglobin 9.4 L Lymphocytes # 1.8 Lymphocytes % 21.2 Mean Corpuscular Hemoglobin 29.0 Mean Corpuscular Hemoglobin Concent 31.3 L Mean Corpuscular Volume 92.6 Mean Platelet Volume 9.6 # Monocytes # 0.9 Monocytes % 9.9 Neutrophils # 5.6 Neutrophils % 64.9 Nucleated Red Blood Cells # 0.0 Nucleated Red Blood Cells % 0.0 Phosphorus Level 3.3 Platelet Count 179 # Potassium Level 4.0 Red Blood Count 3.24 L Red Cell Distribution Width 15.9 H Sodium Level 139 White Blood Count 8.6 # Test 06/04/16 07:54 Bedside Glucose 88 Medications Medications Current Medications Acetaminophen (Tylenol Tab) 650 mg Q6H PRN PO PAIN AND OR ELEVATED TEMP; Start 06/02/16 at 23:00 Carvedilol (Coreg) 12.5 mg BID PO Last administered on 06/04/16 09:49; Admin Dose 12.5 MG; Start 06/03/16 at 09:00 Clonidine (Catapres) 0.1 mg TID PO ; Start 06/03/16 at 09:00 Docusate Sodium (Colace) 100 mg Q12 PO Last administered on 06/04/16 09:48; Admin Dose 100 MG; Start 06/03/16 at 09:00 Minoxidil (Loniten) 5 mg BID PO ; Start 06/03/16 at 09:00 Nifedipine (Procardia Xl) 30 mg BID PO ; Start 06/03/16 at 09:00 Prednisolone (Prelone (Ped)) 15 mg DAILY PO Last administered on 06/04/16 09: 48; Admin Dose 15 MG; Start 06/03/16 at 09:00 Salmeterol Xinafoate/ Fluticasone (Advair 500/50 Diskus) 1 inh BID INH Last administered on 06/04/16 09:47; Admin Dose 1 INH; Start 06/03/16 at 09:00 Senna (Senokot) 1 tab DAILY PRN PO CONSTIPATION; Start 06/02/16 at 23:00 Tamsulosin HCl (Flomax) 0.4 mg HS PO Last administered on 06/03/16 20:11; Admin Dose 0.4 MG; Start 06/03/16 at 21:00 Tiotropium [place] (Spiriva) 1 inh BID INH Last administered on 06/04/16 09:47 ; Admin Dose 1 INH; Start 06/03/16 at 09:00 Valsartan (Diovan) 320 mg DAILY PO ; Start 06/03/16 at 09:00 Diagnostic Test (Pha) (Accucheck) 1 ea 02 XX ; Start 06/03/16 at 02:00 Miscellaneous Information 1 ea NOTE XX ; Start 06/03/16 at 07:00 Glucose (Glutose) 15 gm Q15M PRN PO DECREASED GLUCOSE; Start 06/03/16 at 07:00 Glucose (Glutose) 22.5 gm Q15M PRN PO DECREASED GLUCOSE; Start 06/03/16 at 07: 00 Dextrose (D50w Syringe) 25 ml Q15M PRN IV DECREASED GLUCOSE; Start 06/03/16 at 07:00 Dextrose (D50w Syringe) 50 ml Q15M PRN IV DECREASED GLUCOSE; Start 06/03/16 at 07:00 Glucagon (Glucagen) 1 mg Q15M PRN IM DECREASED GLUCOSE; Start 06/03/16 at 07:00 Glucose (Glutose) 15 gm Q15M PRN BUCCAL DECREASED GLUCOSE; Start 06/03/16 at 07 :00 Multivit/Ca Carb/ B Cmplx/FA/Prenat (Katlyn-Michael) 1 tab DAILY PO Last administered on 06/04/16t 09:50; Admin Dose 1 TAB; Start 06/03/16 at 09:00 HINA CASTILLO MD Jun 04, 2016 10:47
--- NOTE | 2016-06-04 12:22 | CONS ---
Date/Time of Note Date/Time of Note DATE: 06/04/16 TIME: 12:22 Assessment/Plan Assessment/Plan Chief Complaint/Hosp Course Anemia - CHRONIC, MULTIFACTORIAL WITH COMPONENT ACD AND IRON DEFICIENCY CONT TO MONITOR BLOOD COUNT CLOSELY OBSERVE FOR BLEEDING AND HEMOLYSIS TRANSFUSE NEEDED EPO WITH HD LEUKOCYTOSIS REACTIVE MONITOR CLOSELY POST RECENT Acute respiratory failure.- PER PULM AND NEPHRO RECENT Pneumonia End-stage renal disease, hemodialysis dependent. Right chest Perm-A-Cath. Chronic obstructive pulmonary disease exacerbation. CHF, mild Interstitial and COPD, rx with daily steroids (po) Problems: Consultation Date/Type/Reason Admit Date/Time Jun 02, 2016 at 21:48 Initial Consult Date 06.02.16 Type of Consultation: HEMEONC Reason for Consultation ANEMIA Referring Provider: HINA CASTILLO MD 24 HR Interval Summary Free Text/Dictation Respiratory: shortness of breath (is mild) Cardiovascular: No chest pain, No edema Gastrointestinal: no complaints Genitourinary: no complaints Exam/Review of Systems Vital Signs Vitals Vital Signs Date Time Temp Pulse Resp B/P Pulse Ox O2 Delivery O2 Flow Rate FiO2 06/04/16 12:11 78 06/04/16 08:58 20 96 Nasal Cannula 2.0 06/04/16 08:00 97.8 157/61 Intake and Output 06/03/16 06/03/16 06/04/16 15:00 23:00 07:00 Intake Total 1350 ml Output Total 3600 ml Balance -2250 ml Exam Constitutional: alert, distress, well developed, No frail, No non-verbal, No oriented, No other Psych: anxiety, confusion, depression, No nl mood/affect, No no complaints, No other, No suicidal Head: atraumatic, No hematomas, No lacerations, No normocephalic, No other Eyes: EOMI, PERRL, No fundi, disc, No icteric, No nl conjunctiva, No nl lids, No nl sclera, No other ENMT: tympanic membranes, No intubated, No mucosa pink and moist, No nl external ears & nose, No nl lips & teeth, No nl nasal mucosa & septum, No other Neck: bruits, jvd, nuchal rigidity, No masses, No non-tender, No other, No supple, No thyromegaly Respiratory: congested cough, diminished breath sounds, No clear to auscultation, No crackles/rales, No intercostal retraction, No labored breathing, No normal air movement, No other, No respirations, No tactile fremitus, No wheezing Cardiovascular: bruits, diastolic murmur, irregular rhythm, jugular venous distention (JVD), systolic murmur Gastrointestinal: bowel sounds, distended, nl liver, spleen, non-tender, soft, No ascites, No firm, No hepatomegaly, No mass, No other, No rebound or guarding, No splenomegaly, No surgical scars, No tender Genitourinary - Male: No CVA tenderness, No discharge, No nl penis, No nl scrotum, No other Musculoskeletal: joint tenderness, muscle tone, muscle weakness 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 (hearing impairment.), nl mental status ( Forgetful, anxious,tense, irritable, dissatisfied, but states of doing better than before.) Skin: diaphoresis, ecchymosis Lymph: No enlarged, No nl lymph nodes, No nontender, No other Results Result Diagram: 06/04/1662606/04/16 0627 Results 24 hrs Laboratory Tests Test 06/03/16 17:22 06/03/16 20:03 06/04/16 06:27 06/04/16 07:54 Bedside Glucose 120 183 88 Anion Gap 17 H Basophils # 0.0 Basophils % 0.4 Blood Urea Nitrogen 60 H Calcium Level 8.2 L Carbon Dioxide Level 28 Chloride Level 98 Creatinine 5.00 H Eosinophils # 0.3 Eosinophils % 2.9 Glucose Level 87 Hematocrit 30.0 L Hemoglobin 9.4 L Lymphocytes # 1.8 Lymphocytes % 21.2 Mean Corpuscular Hemoglobin 29.0 Mean Corpuscular Hemoglobin Concent 31.3 L Mean Corpuscular Volume 92.6 Mean Platelet Volume 9.6 # Monocytes # 0.9 Monocytes % 9.9 Neutrophils # 5.6 Neutrophils % 64.9 Nucleated Red Blood Cells # 0.0 Nucleated Red Blood Cells % 0.0 Phosphorus Level 3.3 Platelet Count 179 # Potassium Level 4.0 Red Blood Count 3.24 L Red Cell Distribution Width 15.9 H Sodium Level 139 White Blood Count 8.6 # Test 06/04/16 11:42 Bedside Glucose 125 Medications Medications Current Medications Acetaminophen (Tylenol Tab) 650 mg Q6H PRN PO PAIN AND OR ELEVATED TEMP; Start 06/02/16 at 23:00 Carvedilol (Coreg) 12.5 mg BID PO Last administered on 06/04/16 09:49; Admin Dose 12.5 MG; Start 06/03/16 at 09:00 Clonidine (Catapres) 0.1 mg TID PO ; Start 06/03/16 at 09:00 Docusate Sodium (Colace) 100 mg Q12 PO Last administered on 06/04/16 09:48; Admin Dose 100 MG; Start 06/03/16 at 09:00 Minoxidil (Loniten) 5 mg BID PO ; Start 06/03/16 at 09:00 Nifedipine (Procardia Xl) 30 mg BID PO ; Start 06/03/16 at 09:00 Prednisolone (Prelone (Ped)) 15 mg DAILY PO Last administered on 06/04/16 09: 48; Admin Dose 15 MG; Start 06/03/16 at 09:00 Salmeterol Xinafoate/ Fluticasone (Advair 500/50 Diskus) 1 inh BID INH Last administered on 06/04/16 09:47; Admin Dose 1 INH; Start 06/03/16 at 09:00 Senna (Senokot) 1 tab DAILY PRN PO CONSTIPATION; Start 06/02/16 at 23:00 Tamsulosin HCl (Flomax) 0.4 mg HS PO Last administered on 06/03/16 20:11; Admin Dose 0.4 MG; Start 06/03/16 at 21:00 Tiotropium [place] (Spiriva) 1 inh BID INH Last administered on 06/04/16 09:47 ; Admin Dose 1 INH; Start 06/03/16 at 09:00 Valsartan (Diovan) 320 mg DAILY PO ; Start 06/03/16 at 09:00 Diagnostic Test (Pha) (Accucheck) 1 ea 02 XX ; Start 06/03/16 at 02:00 Miscellaneous Information 1 ea NOTE XX ; Start 06/03/16 at 07:00 Glucose (Glutose) 15 gm Q15M PRN PO DECREASED GLUCOSE; Start 06/03/16 at 07:00 Glucose (Glutose) 22.5 gm Q15M PRN PO DECREASED GLUCOSE; Start 06/03/16 at 07: 00 Dextrose (D50w Syringe) 25 ml Q15M PRN IV DECREASED GLUCOSE; Start 06/03/16 at 07:00 Dextrose (D50w Syringe) 50 ml Q15M PRN IV DECREASED GLUCOSE; Start 06/03/16 at 07:00 Glucagon (Glucagen) 1 mg Q15M PRN IM DECREASED GLUCOSE; Start 06/03/16 at 07:00 Glucose (Glutose) 15 gm Q15M PRN BUCCAL DECREASED GLUCOSE; Start 06/03/16 at 07 :00 Multivit/Ca Carb/ B Cmplx/FA/Prenat (Katlyn-Michael) 1 tab DAILY PO Last administered on 06/04/16t 09:50; Admin Dose 1 TAB; Start 06/03/16 at 09:00 ANDRE SMITH MD Jun 04, 2016 12:22
[2016-06-04] MEDS: TAMSULOSIN (SR) 0.4 MG CAP PO SCH (21:15)
[2016-06-05] VITALS (19 sets, daily range): BP systolic 108–155; BP diastolic 47–77; PULSE 65–79; RESP 18–22
[2016-06-05] MEDS: ACCUCHECK XX SCH (02:56)
[2016-06-05] MEDS: LEVOTHYROXINE 125 MCG TAB PO SCH (06:30)
[2016-06-05] MEDS: ALBUTEROL 0.083% (NEB) 2.5 MG/3 ML AMP HHN SCH ×4 (07:47→20:52)
[2016-06-05] MEDS: INSULIN ASPART [NOVOLOG] 3 ML PEN SC SCH ×4 (08:00→21:00)
--- NOTE | 2016-06-05 08:06 | CONS ---
Date/Time of Note Date/Time of Note DATE: 06/05/16 TIME: 08:05 Assessment/Plan Assessment/Plan Additional Assessment/Plan 1. CHF, mild 2. CKD, to have HD today and tomm and then hopeful dc 3. Interstitial and COPD, rx with daily steroids (po) 4. Anemia, stable and will resume epogen Consultation Date/Type/Reason Admit Date/Time Jun 04, 2016 at 11:28 Detailed Summary Respiratory: No shortness of breath Cardiovascular: No chest pain Gastrointestinal: no complaints Genitourinary: no complaints Exam/Review of Systems Vital Signs Vitals Vital Signs Date Time Temp Pulse Resp B/P Pulse Ox O2 Delivery O2 Flow Rate FiO2 06/05/16 07:48 67 18 96 Nasal Cannula 2.0 06/05/16 05:02 98.1 140/64 Intake and Output 06/04/16 06/04/16 06/05/16 15:00 23:00 07:00 Intake Total 680 ml 300 ml Balance 680 ml 300 ml Exam Neck: No jvd Respiratory: diminished breath sounds (basilar rales are present) Cardiovascular: regular rate and rhythm Gastrointestinal: soft Extremities: No edema Results Result Diagram: 06/04/1662606/04/16626 Results 24 hrs Laboratory Tests Test 06/04/16 11:42 06/04/16 17:28 06/04/16 21:33 06/05/16 07:40 Bedside Glucose 125 126 133 79 Medications Medications Current Medications Acetaminophen (Tylenol Tab) 650 mg Q6H PRN PO PAIN AND OR ELEVATED TEMP; Start 06/02/16 at 23:00 Carvedilol (Coreg) 12.5 mg BID PO Last administered on 06/04/16 21:15; Admin Dose 12.5 MG; Start 06/03/16 at 09:00 Clonidine (Catapres) 0.1 mg TID PO Last administered on 06/04/16 21:15; Admin Dose 0.1 MG; Start 06/03/16 at 09:00 Docusate Sodium (Colace) 100 mg Q12 PO Last administered on 06/04/16 21:15; Admin Dose 100 MG; Start 06/03/16 at 09:00 Minoxidil (Loniten) 5 mg BID PO Last administered on 06/04/16 21:14; Admin Dose 5 MG; Start 06/03/16 at 09:00 Nifedipine (Procardia Xl) 30 mg BID PO Last administered on 06/04/16 21:15; Admin Dose 30 MG; Start 06/03/16 at 09:00 Prednisolone (Prelone (Ped)) 15 mg DAILY PO Last administered on 06/04/16 09: 48; Admin Dose 15 MG; Start 06/03/16 at 09:00 Salmeterol Xinafoate/ Fluticasone (Advair 500/50 Diskus) 1 inh BID INH Last administered on 06/04/16 21:16; Admin Dose 1 INH; Start 06/03/16 at 09:00 Senna (Senokot) 1 tab DAILY PRN PO CONSTIPATION; Start 06/02/16 at 23:00 Tamsulosin HCl (Flomax) 0.4 mg HS PO Last administered on 06/04/16 21:15; Admin Dose 0.4 MG; Start 06/03/16 at 21:00 Tiotropium [place] (Spiriva) 1 inh BID INH Last administered on 06/04/16 21:16 ; Admin Dose 1 INH; Start 06/03/16 at 09:00 Valsartan (Diovan) 320 mg DAILY PO Last administered on 06/04/16 17:45; Admin Dose 320 MG; Start 06/03/16 at 09:00 Diagnostic Test (Pha) (Accucheck) 1 ea 02 XX Last administered on 06/05/16 02: 56; Admin Dose 1 EA; Start 06/03/16 at 02:00 Miscellaneous Information 1 ea NOTE XX ; Start 06/03/16 at 07:00 Glucose (Glutose) 15 gm Q15M PRN PO DECREASED GLUCOSE; Start 06/03/16 at 07:00 Glucose (Glutose) 22.5 gm Q15M PRN PO DECREASED GLUCOSE; Start 06/03/16 at 07: 00 Dextrose (D50w Syringe) 25 ml Q15M PRN IV DECREASED GLUCOSE; Start 06/03/16 at 07:00 Dextrose (D50w Syringe) 50 ml Q15M PRN IV DECREASED GLUCOSE; Start 06/03/16 at 07:00 Glucagon (Glucagen) 1 mg Q15M PRN IM DECREASED GLUCOSE; Start 06/03/16 at 07:00 Glucose (Glutose) 15 gm Q15M PRN BUCCAL DECREASED GLUCOSE; Start 06/03/16 at 07 :00 Multivit/Ca Carb/ B Cmplx/FA/Prenat (Katlyn-Michael) 1 tab DAILY PO Last administered on 06/04/16t 09:50; Admin Dose 1 TAB; Start 06/03/16 at 09:00 TRUE GTZ MD Jun 05, 2016 08:06
[2016-06-05] MEDS: predniSOLONE (3 MG/ML PO SYG) PO SCH (08:37)
[2016-06-05] MEDS: MULTIVIT/CA CARB/B CMPLX/FA TAB PO SCH (08:38)
[2016-06-05] MEDS: DOCUSATE SODIUM 100 MG CAP PO SCH ×2 (08:38→21:35)
[2016-06-05] MEDS: TIOTROPIUM 18 MCG CAPSULE INHA DEV INH SCH ×2 (08:40→21:00)
[2016-06-05] MEDS: CALCIUM ACETATE 667 MG CAP PO SCH ×3 (08:41→17:18)
[2016-06-05] MEDS: SALMETEROL/FLUTICASONE 500/50 INHA INH SCH ×2 (08:41→21:37)
[2016-06-05] MEDS: VALSARTAN 160 MG TAB PO SCH (08:52)
[2016-06-05] MEDS: NIFEdipine (XL) 30 MG TAB PO SCH ×2 (08:52→21:36)
[2016-06-05] MEDS: MINOXIDIL 2.5 MG TAB PO SCH ×2 (08:52→21:35)
[2016-06-05] MEDS ORDERED: EPOETIN 10000 UNITS/1 ML INJ (ESRD) SC SCH (17:00)
--- NOTE | 2016-06-05 20:45 | PN ---
Date/Time of Note Date/Time of Note DATE: 06/05/16 TIME: 20:40 Assessment/Plan VTE Prophylaxis VTE Prophylaxis Intervention: ambulation, anti-embolic stocking VTE Contraindication Reason: peripheral vascular disease Lines/Catheters IV Catheter Type (from Nrsg): [place] line still needed: No Urinary Cath still in place: No Assessment/Plan Assessment/Plan 1. Acute on chronic respiratory insufficiency, improving. 3. Chest pain during HD today(s/p 2 angiographies and stenting) cardiology consult. 4. End-stage renal disease-on HD-Discuses with . 5. Anxiety, depression with dissatisfaction 6. Diabetes type 2-better controlled 7. Osteoarthritis. 8. Anemia of chronic disease-H/H stable. 9. Status post multiple units of packed red blood cell transfusions. 10. Weight loss-more than 60lb in 8 months. 11. Hypertension-out of control during respiratory distress. 12. Memory impairment. 13. Major depression. 14. Back pain. 15. Benign prostatic hypertrophy. 16. S/P left forearm a/v shunt placement for dialysis-functions well , not mature yet. 17. S/P right Jugular vein cannulation for dialysis-no signs of infection. 18. Hypoxemia with hypercapnia on home 02 and BIPAP. 19. Anxiety; borderline personality; 20. Excessive thirst. 21. Constipation Cont'd Hospitalization Reason: HD and pulm management. Subjective 24 Hr Interval Summary Free Text/Dictation Sob improved but I am now very tired. Even mild movements are making me feel exhausted. Constitutional: diaphoresis, disoriented, poor po, requiring O2, No chills, No febrile, No improved, No no complaints, No other, No requiring IVF Eyes: No discharge, No no complaints, No other, No pain, No redness, No visual change ENT: congestion, No bleeding, No discharge, No dysphagia, No no complaints, No other, No pain , No sore throat Respiratory: cough, pleuritic pain, shortness of breath, No no complaints, No other, No pain, No sputum, No wheezing Cardiovascular: lightheadedness, orthopenea, palpitations, paroxysmal nocturnal dyspnea (had vt.), No chest pain, No edema, No no complaints, No other Gastrointestinal: constipation, decreased appetite, nausea, No blood, No diarrhea, No flatus, No no complaints, No other, No pain, No passing stool, No vomiting Genitourinary: dysuria, No bleeding, No discharge, No flank pain, No hematuria, No no complaints, No other Neurologic: confusion, dizziness, headache Psychological: anxiety, confusion, depression Exam/Review of Systems Vital Signs Vitals Vital Signs Date Time Temp Pulse Resp B/P Pulse Ox O2 Delivery O2 Flow Rate FiO2 06/05/16 16:54 68 18 97 Nasal Cannula 2.0 06/05/16 16:51 98.5 118/58 Intake and Output 06/04/16 06/04/16 06/05/16 15:00 23:00 07:00 Intake Total 680 ml 300 ml Balance 680 ml 300 ml Exam Constitutional: alert, distress, frail, oriented, No non-verbal, No obese, No other, No well developed Psych: anxiety, confusion, depression, other (forgetful.), No nl mood/affect, No no complaints, No suicidal Head: atraumatic, No hematomas, No lacerations, No normocephalic, No other Eyes: EOMI, PERRL, nl lids, No fundi, disc, No icteric, No nl conjunctiva, No nl sclera, No other ENMT: nl nasal mucosa & septum, tympanic membranes, No intubated, No mucosa pink and moist, No nl external ears & nose, No nl lips & teeth, No other Neck: bruits, jvd, nuchal rigidity, No masses, No non-tender, No other, No supple, No thyromegaly Respiratory: congested cough, diminished breath sounds, intercostal retraction , No clear to auscultation, No crackles/rales, No labored breathing, No normal air movement, No other, No respirations, No tactile fremitus, No wheezing Cardiovascular: bruits, murmurs/extra sounds, systolic murmur, No S3, No S4, No diastolic murmur, No edema, No gallop, No irregular rhythm, No jugular venous distention (JVD), No nl pulses, No other, No regular rate and rhythm, No rub Gastrointestinal: ascites, bowel sounds, firm, non-tender, soft, No distended, No hepatomegaly, No mass, No nl liver, spleen, No other, No rebound or guarding, No splenomegaly, No surgical scars, No tender Genitourinary - Male: nl penis, nl scrotum, No CVA tenderness, No discharge, No other Musculoskeletal: joint tenderness, muscle tone, muscle weakness, No nl extremities to inspection, No nl gait and stance, No other, No range of motion, No spine non-tender, No swelling Extremities: other (left av sergei's druit is palpable.), No calf tenderness, No clubbing, No cyanosis, No edema, No normal pulses, No palpable cord, No pitting pedal edema, No tenderness Neurological: confused, lethargic, numbness (Anxious, tense, depressed forgetful.), other Skin: ecchymosis, No diaphoresis, No laceration, No nl turgor, No other, No puncture, No rash or lesions Lymph: No enlarged, No nl lymph nodes, No nontender, No other Results Result Diagram: 06/04/1627 06/04/16626 Results 24 hrs Laboratory Tests Test 06/04/16 21:33 06/05/16 07:40 06/05/16 12:07 06/05/16 17:08 Bedside Glucose 133 79 135 129 Medications Medications Current Medications Acetaminophen (Tylenol Tab) 650 mg Q6H PRN PO PAIN AND OR ELEVATED TEMP; Start 06/02/16 at 23:00 Carvedilol (Coreg) 12.5 mg BID PO Last administered on 06/04/16 21:15; Admin Dose 12.5 MG; Start 06/03/16 at 09:00 Clonidine (Catapres) 0.1 mg TID PO Last administered on 06/04/16 21:15; Admin Dose 0.1 MG; Start 06/03/16 at 09:00 Docusate Sodium (Colace) 100 mg Q12 PO Last administered on 06/05/16 08:38; Admin Dose 100 MG; Start 06/03/16 at 09:00 Minoxidil (Loniten) 5 mg BID PO Last administered on 06/04/16 21:14; Admin Dose 5 MG; Start 06/03/16 at 09:00 Nifedipine (Procardia Xl) 30 mg BID PO Last administered on 06/04/16 21:15; Admin Dose 30 MG; Start 06/03/16 at 09:00 Prednisolone (Prelone (Ped)) 15 mg DAILY PO Last administered on 06/05/16 08: 37; Admin Dose 15 MG; Start 06/03/16 at 09:00 Salmeterol Xinafoate/ Fluticasone (Advair 500/50 Diskus) 1 inh BID INH Last administered on 06/05/16 08:41; Admin Dose 1 INH; Start 06/03/16 at 09:00 Senna (Senokot) 1 tab DAILY PRN PO CONSTIPATION; Start 06/02/16 at 23:00 Tamsulosin HCl (Flomax) 0.4 mg HS PO Last administered on 06/04/16 21:15; Admin Dose 0.4 MG; Start 06/03/16 at 21:00 Tiotropium [place] (Spiriva) 1 inh BID INH Last administered on 06/05/16 08:40 ; Admin Dose 1 INH; Start 06/03/16 at 09:00 Valsartan (Diovan) 320 mg DAILY PO Last administered on 06/04/16 17:45; Admin Dose 320 MG; Start 06/03/16 at 09:00 Diagnostic Test (Pha) (Accucheck) 1 ea 02 XX Last administered on 06/05/16 02: 56; Admin Dose 1 EA; Start 06/03/16 at 02:00 Miscellaneous Information 1 ea NOTE XX ; Start 06/03/16 at 07:00 Glucose (Glutose) 15 gm Q15M PRN PO DECREASED GLUCOSE; Start 06/03/16 at 07:00 Glucose (Glutose) 22.5 gm Q15M PRN PO DECREASED GLUCOSE; Start 06/03/16 at 07: 00 Dextrose (D50w Syringe) 25 ml Q15M PRN IV DECREASED GLUCOSE; Start 06/03/16 at 07:00 Dextrose (D50w Syringe) 50 ml Q15M PRN IV DECREASED GLUCOSE; Start 06/03/16 at 07:00 Glucagon (Glucagen) 1 mg Q15M PRN IM DECREASED GLUCOSE; Start 06/03/16 at 07:00 Glucose (Glutose) 15 gm Q15M PRN BUCCAL DECREASED GLUCOSE; Start 06/03/16 at 07 :00 Multivit/Ca Carb/ B Cmplx/FA/Prenat (Katlyn-Michael) 1 tab DAILY PO Last administered on 06/05/16 08:38; Admin Dose 1 TAB; Start 06/03/16 at 09:00 Epoetin Jordon (Epogen (Esrd)) 10,000 units MoWeFr@17 SC Last administered on t 17:11; Admin Dose 10,000 UNITS; Start 06/05/16 at 17:00 HINA CASTILLO MD Jun 05, 2016 20:44
[2016-06-05] MEDS: TAMSULOSIN (SR) 0.4 MG CAP PO SCH (21:36)
--- NOTE | 2016-06-05 22:08 | CONS ---
Date/Time of Note Date/Time of Note DATE: 06/05/16 TIME: 22:06 Assessment/Plan Assessment/Plan Chief Complaint/Hosp Course Anemia - CHRONIC, MULTIFACTORIAL WITH COMPONENT ACD AND IRON DEFICIENCY CONT TO MONITOR BLOOD COUNT CLOSELY OBSERVE FOR BLEEDING AND HEMOLYSIS TRANSFUSE NEEDED EPO WITH HD LEUKOCYTOSIS REACTIVE MONITOR CLOSELY NOTE THAT PT IS ON ORAL STEROIDS End-stage renal disease, hemodialysis dependent. Right chest Perm-A-Cath. Chronic obstructive pulmonary disease exacerbation. CHF, mild Interstitial and COPD, rx with daily steroids (po) POST RECENT Acute respiratory failure RECENT Pneumonia Problems: Consultation Date/Type/Reason Admit Date/Time Jun 04, 2016 at 11:28 Initial Consult Date 06.02.16 Type of Consultation: HEMEONC Reason for Consultation ANEMIA Referring Provider: HINA CASTILLO MD 24 HR Interval Summary Free Text/Dictation ALL NOTED LEUKOCYTOSIS - IMPROVED H/H- STABLE NO BLEEDING Respiratory: No shortness of breath Cardiovascular: No chest pain Gastrointestinal: no complaints Genitourinary: no complaints Exam/Review of Systems Vital Signs Vitals Vital Signs Date Time Temp Pulse Resp B/P Pulse Ox O2 Delivery O2 Flow Rate FiO2 06/05/16 21:42 98.1 18 155/71 100 Nasal Cannula 2.0 06/05/16 20:52 74 Intake and Output 06/04/16 06/04/16 06/05/16 15:00 23:00 07:00 Intake Total 680 ml 300 ml Balance 680 ml 300 ml Exam Constitutional: alert, frail, oriented, other (not following days.) Psych: anxiety, confusion, depression, No nl mood/affect, No no complaints, No other, No suicidal Head: atraumatic, normocephalic, No hematomas, No lacerations, No other Eyes: EOMI, PERRL, nl lids, No fundi, disc, No icteric, No nl conjunctiva, No nl sclera, No other ENMT: tympanic membranes, No intubated, No mucosa pink and moist, No nl external ears & nose, No nl lips & teeth, No nl nasal mucosa & septum, No other Neck: bruits, jvd, supple, No masses, No non-tender, No nuchal rigidity, No other, No thyromegaly Respiratory: congested cough, diminished breath sounds, labored breathing, other (on 3 l/min 02.), respirations, tactile fremitus, No clear to auscultation, No crackles/rales, No intercostal retraction, No normal air movement, No wheezing Cardiovascular: bruits, irregular rhythm, systolic murmur, No S3, No S4, No diastolic murmur, No edema, No gallop, No jugular venous distention (JVD), No murmurs/extra sounds, No nl pulses, No other, No regular rate and rhythm, No rub Gastrointestinal: distended, nl liver, spleen, soft, No ascites, No bowel sounds, No firm, No hepatomegaly, No mass, No non-tender , No other, No rebound or guarding, No splenomegaly, No surgical scars, No tender Genitourinary - Male: nl penis, nl scrotum, No CVA tenderness, No discharge, No other Musculoskeletal: joint tenderness, muscle tone, muscle weakness, No nl extremities to inspection, No nl gait and stance, No other, No range of motion, No spine non-tender, No swelling Extremities: other (left a/v shunt drill palpable.), pitting pedal edema, No calf tenderness, No clubbing, No cyanosis, No edema, No normal pulses, No palpable cord, No tenderness 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, 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, 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, numbness, No DTR's symmetric, No focal weakness, No nl mental status, No nl speech, No nl strength, No other, No reflexes, No unresponsive Skin: rash or lesions, No diaphoresis, No ecchymosis, No laceration, No nl turgor, No other, No puncture Lymph: No enlarged, No nl lymph nodes, No nontender, No other Results Result Diagram: 06/04/1662606/04/16626 Results 24 hrs Laboratory Tests Test 06/05/16 07:40 06/05/16 12:07 06/05/16 17:08 06/05/16 20:56 Bedside Glucose 79 135 129 111 Medications Medications Current Medications Acetaminophen (Tylenol Tab) 650 mg Q6H PRN PO PAIN AND OR ELEVATED TEMP; Start 06/02/16 at 23:00 Carvedilol (Coreg) 12.5 mg BID PO Last administered on 06/05/16t 21:36; Admin Dose 12.5 MG; Start 06/03/16 at 09:00 Clonidine (Catapres) 0.1 mg TID PO Last administered on 06/04/16 21:15; Admin Dose 0.1 MG; Start 06/03/16 at 09:00 Docusate Sodium (Colace) 100 mg Q12 PO Last administered on 06/05/16 21:35; Admin Dose 100 MG; Start 06/03/16 at 09:00 Minoxidil (Loniten) 5 mg BID PO Last administered on 06/05/16 21:35; Admin Dose 5 MG; Start 06/03/16 at 09:00 Nifedipine (Procardia Xl) 30 mg BID PO Last administered on 06/05/16 21:36; Admin Dose 30 MG; Start 06/03/16 at 09:00 Prednisolone (Prelone (Ped)) 15 mg DAILY PO Last administered on 06/05/16 08: 37; Admin Dose 15 MG; Start 06/03/16 at 09:00 Salmeterol Xinafoate/ Fluticasone (Advair 500/50 Diskus) 1 inh BID INH Last administered on 06/05/16 21:37; Admin Dose 1 INH; Start 06/03/16 at 09:00 Senna (Senokot) 1 tab DAILY PRN PO CONSTIPATION; Start 06/02/16 at 23:00 Tamsulosin HCl (Flomax) 0.4 mg HS PO Last administered on 06/05/16 21:36; Admin Dose 0.4 MG; Start 06/03/16 at 21:00 Tiotropium [place] (Spiriva) 1 inh BID INH Last administered on 06/05/16 08:40 ; Admin Dose 1 INH; Start 06/03/16 at 09:00 Valsartan (Diovan) 320 mg DAILY PO Last administered on 06/04/16 17:45; Admin Dose 320 MG; Start 06/03/16 at 09:00 Diagnostic Test (Pha) (Accucheck) 1 ea 02 XX Last administered on 06/05/16 02: 56; Admin Dose 1 EA; Start 06/03/16 at 02:00 Miscellaneous Information 1 ea NOTE XX ; Start 06/03/16 at 07:00 Glucose (Glutose) 15 gm Q15M PRN PO DECREASED GLUCOSE; Start 06/03/16 at 07:00 Glucose (Glutose) 22.5 gm Q15M PRN PO DECREASED GLUCOSE; Start 06/03/16 at 07: 00 Dextrose (D50w Syringe) 25 ml Q15M PRN IV DECREASED GLUCOSE; Start 06/03/16 at 07:00 Dextrose (D50w Syringe) 50 ml Q15M PRN IV DECREASED GLUCOSE; Start 06/03/16 at 07:00 Glucagon (Glucagen) 1 mg Q15M PRN IM DECREASED GLUCOSE; Start 06/03/16 at 07:00 Glucose (Glutose) 15 gm Q15M PRN BUCCAL DECREASED GLUCOSE; Start 06/03/16 at 07 :00 Multivit/Ca Carb/ B Cmplx/FA/Prenat (Katlyn-Michael) 1 tab DAILY PO Last administered on 06/05/16 08:38; Admin Dose 1 TAB; Start 06/03/16 at 09:00 Epoetin [place] (Epogen (Esrd)) 10,000 units MoWeFr@17 SC Last administered on 17:11; Admin Dose 10,000 UNITS; Start 06/05/16 at 17:00 ANDRE SMITH MD Jun 05, 2016 22:08
--- NOTE | 2016-06-05 22:09 | CONS ---
Date/Time of Note Date/Time of Note DATE: 06/03/16 TIME: 22:09 VK LE Assessment/Plan Assessment/Plan Chief Complaint/Hosp Course Anemia - CHRONIC, MULTIFACTORIAL WITH COMPONENT ACD AND IRON DEFICIENCY CONT TO MONITOR BLOOD COUNT CLOSELY OBSERVE FOR BLEEDING AND HEMOLYSIS TRANSFUSE NEEDED EPO WITH HD LEUKOCYTOSIS REACTIVE MONITOR CLOSELY NOTE THAT PT IS ON ORAL STEROIDS End-stage renal disease, hemodialysis dependent. Right chest Perm-A-Cath. Chronic obstructive pulmonary disease exacerbation. CHF, mild Interstitial and COPD, rx with daily steroids (po) POST RECENT Acute respiratory failure RECENT Pneumonia Problems: Consultation Date/Type/Reason Admit Date/Time Jun 04, 2016 at 11:28 Initial Consult Date 06.02.16 Type of Consultation: HEMEONC Reason for Consultation ANEMIA Referring Provider: HINA CASTILLO MD 24 HR Interval Summary Free Text/Dictation ALL NOTED NO NEW EVENTS NO BLEEDING Exam/Review of Systems Vital Signs Vitals Vital Signs Date Time Temp Pulse Resp B/P Pulse Ox O2 Delivery O2 Flow Rate FiO2 06/05/16 21:42 98.1 18 155/71 100 Nasal Cannula 2.0 06/05/16 20:52 74 Intake and Output 06/04/16 06/04/16 06/05/16 15:00 23:00 07:00 Intake Total 680 ml 300 ml Balance 680 ml 300 ml Exam Constitutional: alert, distress, well developed, No frail, No non-verbal, No oriented, No other Psych: anxiety, confusion, depression, No nl mood/affect, No no complaints, No other, No suicidal Head: atraumatic, No hematomas, No lacerations, No normocephalic, No other Eyes: EOMI, PERRL, No fundi, disc, No icteric, No nl conjunctiva, No nl lids, No nl sclera, No other ENMT: tympanic membranes, No intubated, No mucosa pink and moist, No nl external ears & nose, No nl lips & teeth, No nl nasal mucosa & septum, No other Neck: bruits, jvd, nuchal rigidity, No masses, No non-tender, No other, No supple, No thyromegaly Respiratory: congested cough, diminished breath sounds, No clear to auscultation, No crackles/rales, No intercostal retraction, No labored breathing, No normal air movement, No other, No respirations, No tactile fremitus, No wheezing Cardiovascular: bruits, diastolic murmur, irregular rhythm, jugular venous distention (JVD), systolic murmur Gastrointestinal: bowel sounds, distended, nl liver, spleen, non-tender, soft, No ascites, No firm, No hepatomegaly, No mass, No other, No rebound or guarding, No splenomegaly, No surgical scars, No tender Genitourinary - Male: No CVA tenderness, No discharge, No nl penis, No nl scrotum, No other Musculoskeletal: joint tenderness, muscle tone, muscle weakness Neurological: 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 intact (hearing impairment.), nl mental status ( Forgetful, anxious,tense, irritable, dissatisfied, but states of doing better than before.) Skin: diaphoresis, ecchymosis Lymph: No enlarged, No nl lymph nodes, No nontender, No other Results Result Diagram: 06/04/16 0627 06/04/16 0627 Results 24 hrs Laboratory Tests Test 06/05/16 07:40 06/05/16 12:07 06/05/16 17:08 06/05/16 20:56 Bedside Glucose 79 135 129 111 Medications Medications Current Medications Acetaminophen (Tylenol Tab) 650 mg Q6H PRN PO PAIN AND OR ELEVATED TEMP; Start 06/02/16 at 23:00 Carvedilol (Coreg) 12.5 mg BID PO Last administered on 06/05/16 21:36; Admin Dose 12.5 MG; Start 06/03/16 at 09:00 Clonidine (Catapres) 0.1 mg TID PO Last administered on 06/04/16 21:15; Admin Dose 0.1 MG; Start 06/03/16 at 09:00 Docusate Sodium (Colace) 100 mg Q12 PO Last administered on 06/05/16 21:35; Admin Dose 100 MG; Start 06/03/16 at 09:00 Minoxidil (Loniten) 5 mg BID PO Last administered on 06/05/16 21:35; Admin Dose 5 MG; Start 06/03/16 at 09:00 Nifedipine (Procardia Xl) 30 mg BID PO Last administered on 06/05/16 21:36; Admin Dose 30 MG; Start 06/03/16 at 09:00 Prednisolone (Prelone (Ped)) 15 mg DAILY PO Last administered on 06/05/16 08: 37; Admin Dose 15 MG; Start 06/03/16 at 09:00 Salmeterol Xinafoate/ Fluticasone (Advair 500/50 Diskus) 1 inh BID INH Last administered on 06/05/16 21:37; Admin Dose 1 INH; Start 06/03/16 at 09:00 Senna (Senokot) 1 tab DAILY PRN PO CONSTIPATION; Start 06/02/16 at 23:00 Tamsulosin HCl (Flomax) 0.4 mg HS PO Last administered on 06/05/16 21:36; Admin Dose 0.4 MG; Start 06/03/16 at 21:00 Tiotropium [place] (Spiriva) 1 inh BID INH Last administered on 06/05/16 08:40 ; Admin Dose 1 INH; Start 06/03/16 at 09:00 Valsartan (Diovan) 320 mg DAILY PO Last administered on 06/04/16 17:45; Admin Dose 320 MG; Start 06/03/16 at 09:00 Diagnostic Test (Pha) (Accucheck) 1 ea 02 XX Last administered on 06/05/16 02: 56; Admin Dose 1 EA; Start 06/03/16 at 02:00 Miscellaneous Information 1 ea NOTE XX ; Start 06/03/16 at 07:00 Glucose (Glutose) 15 gm Q15M PRN PO DECREASED GLUCOSE; Start 06/03/16 at 07:00 Glucose (Glutose) 22.5 gm Q15M PRN PO DECREASED GLUCOSE; Start 06/03/16 at 07: 00 Dextrose (D50w Syringe) 25 ml Q15M PRN IV DECREASED GLUCOSE; Start 06/03/16 at 07:00 Dextrose (D50w Syringe) 50 ml Q15M PRN IV DECREASED GLUCOSE; Start 06/03/16 at 07:00 Glucagon (Glucagen) 1 mg Q15M PRN IM DECREASED GLUCOSE; Start 06/03/16 at 07:00 Glucose (Glutose) 15 gm Q15M PRN BUCCAL DECREASED GLUCOSE; Start 06/03/16 at 07 :00 Multivit/Ca Carb/ B Cmplx/FA/Prenat (Katlyn-Michael) 1 tab DAILY PO Last administered on 06/05/16 08:38; Admin Dose 1 TAB; Start 06/03/16 at 09:00 Epoetin Jordon (Epogen (Esrd)) 10,000 units MoWeFr@17 SC Last administered on t 17:11; Admin Dose 10,000 UNITS; Start 06/05/16 at 17:00 ANDRE SMITH MD Jun 05, 2016 22:09
--- NOTE | 2016-06-05 22:26 | CONS ---
Date/Time of Note Date/Time of Note DATE: 06/02/16 TIME: 21:25 VK LE Assessment/Plan Assessment/Plan Chief Complaint/Hosp Course Anemia - CHRONIC, MULTIFACTORIAL WITH COMPONENT ACD AND IRON DEFICIENCY CONT TO MONITOR BLOOD COUNT CLOSELY OBSERVE FOR BLEEDING AND HEMOLYSIS TRANSFUSE NEEDED EPO WITH HD LEUKOCYTOSIS REACTIVE MONITOR CLOSELY NOTE THAT PT IS ON ORAL STEROIDS End-stage renal disease, hemodialysis dependent. Right chest Perm-A-Cath. Chronic obstructive pulmonary disease exacerbation. CHF, mild Interstitial and COPD, rx with daily steroids (po) POST RECENT Acute respiratory failure RECENT Pneumonia Problems: Consultation Date/Type/Reason Admit Date/Time Jun 04, 2016 at 11:28 Date of Consultation: Jun 02, 2016 Type of Consultation: HEMEONC Reason for Consultation ANEMIA Referring Provider: HINA CASTILLO MD Hx of Present Illness The patient is a 81-year-old male, presenting to the ER because of chest pain and low blood pressure during dialysis today. Therefore he did not complete dialysis and sent to the ER for further evaluation. The history is very limited due to patient clinical condition He does use of 2 L nasal cannula continuously and sleep with his CPAP at home. He does not smoke nor drink. He denies any chest pain or dyspnea in the ER. I WAS ASKED TO PROVIDE HEMEONC CONSULT RE ANEMIA Past medical history: Chronic kidney disease, COPD, interstitial lung disease, history of CHF, anxiety, depression, diabetes mellitus, anemia, hypertension, dementia, chronic low back pain, BPH Past surgical history: Right chest hemodialysis catheter, left upper extremity AV fistula, stent PCI ROS All systems reviewed and are negative except as per history of present illness. Medications Home Meds Active Scripts Tiotropium [place]* (Spiriva*) 18 Mcg Cap.w.dev, 1 INH INH BID for 30 Days, #60 CAP Prov:HINA CASTILLO MD 04/28/16 Salmeterol Xinaf-Fluticasone* (Advair*) 500/50 Diskus Inhaler, 1 INH INH BID for 30 Days, #1 CAP.EC Prov:HINA CASTILLO MD 04/28/16 Pantoprazole* (Pantoprazole*) 40 Mg Tablet.dr, 40 MG PO DAILY@06 for 30 Days, # 30 BOX Prov:HINA CASTILLO MD 04/28/16 Nifedipine (Procardia Xl) 30 Mg Tab.er.24, 30 MG PO BID for 30 Days, #30 TAB Prov:HINA CASTILLO MD 04/28/16 Minoxidil* (Lonitin*) 2.5 Mg Tab, 5 MG PO BID for 30 Days, #60 TAB Prov:HINA CASTILLO MD 04/28/16 [Ipratropium 0.02% (Neb)] 0.5 MG/2.5 ML NEBU No Conflict Check, 0.5 MG HHN Q6H RESP THERAPY for 30 Days, #90 CAP Prov:HINA CASTILLO MD 04/28/16 Clonidine Hcl* (Clonidine Hcl*) 0.1 Mg Tab, 0.1 MG PO TID for 30 Days, #90 TAB Prov:HINA CASTILLO MD 04/28/16 Carvedilol* (Carvedilol*) 12.5 Mg Tablet, 12.5 MG PO BID for 30 Days, #60 TAB Prov:HINA CASTILLO MD 04/28/16 Albuterol Sulfate* (Albuterol Sulfate* Neb) 0.083%-3 Ml Neb, 2.5 MG HHN Q6HWA RESP THERAPY for 30 Days, #90 BLIST PACK Prov:HINA CASTILLO MD 04/28/16 Acetaminophen* (Tylenol*) 325 Mg Tablet, 650 MG PO Q6H Y for PAIN AND OR ELEVATED TEMP for 30 Days, #90 TAB Prov:HINA CASTILLO MD 04/28/16 Reported Medications [Heparin 5000U/0.5ML] No Conflict Check, 0.5 ML SC Q12 06/02/16 Prednisolone* (Prelone*) 15 Mg/5 Ml Solution, 15 MG PO DAILY, ML 06/02/16 Multivit/Ca Carb/B Cmplx/Fa* (Katlyn-Michael*) 1 Tab Tab, 1 TAB PO DAILY, TAB 06/02/16 Insulin Aspart (Novolog) 100 Unit/1 Ml Cartridge, 0 SQ SLIDING SCALE BEFORE MEALS; 200-250=2 UNITS, 251-300=4 UNITS, 301-350=6 UNITS, 351-400=8 UNITS,>400=10 UNITS AND CALL 06/02/16 Valsartan* (Diovan*) 160 Mg Tablet, 320 MG PO DAILY, TAB HOLD IF SBP<110;HR 06/02/16 Docusate Sodium* (Docusate Sodium*) 100 Mg Capsule, 100 MG PO Q12, #60 CAP 06/02/16 Calcium Acetate* (Calcium Acetate*) 667 Mg Capsule, 667 MG PO WITH MEALS, #30 CAP 06/02/16 Sennosides* (Senna Lax*) 8.6 Mg Tablet, 1 TAB PO DAILY Y for CONSTIPATION, TAB 01/13/16 Levalbuterol* (Xopenex* HFA) 15 Gm Inha, 2 PUFFS INH Q4H Y for WHEEZING AND SOB , INHALER 01/13/16 Tamsulosin Hcl* (Tamsulosin Hcl*) 0.4 Mg Cap.er.24h, 0.4 MG PO HS, CAP 11/28/15 Levothyroxine Sodium* (Levothyroxine Sodium*) 125 Mcg Tablet, 125 MCG PO BEFORE BREAKFAST, #30 TAB 11/28/15 Discontinued Reported Medications Valsartan* (Diovan*) 320 Mg Tablet, 320 MG PO DAILY, TAB HOLD FOR SBP<110 HR<60(HTN) 01/13/16 Clopidogrel Bisulfate* (Clopidogrel Bisulfate*) 75 Mg Tablet, 75 MG PO DAILY, # 30 TAB 11/28/15 Discontinued Scripts Epoetin Jordon (Epogen) 10,000 Units/Ml Soln, 48228 UNITS SC MoWeFr@17 for 14 Days , #30 DAYSX 3 28 Prov:HINA CASTILLO MD 04/28/16 Allergies Allergies: Coded Allergies: No Known Allergy (Unverified , 06/02/16) PMhx/Soc Anesthesia Reaction: No Hx Neurological Disorder: No Hx Respiratory Disorders: Yes (CHF) Hx Psychiatric Problems: No Hx Miscellaneous Medical Probl: Yes (ANEMIA) Hx Alcohol Use: No Hx Substance Use: No Hx Tobacco Use: No Constitutional: diaphoresis, disoriented, poor po, requiring O2, No chills, No febrile, No improved, No no complaints, No other, No requiring IVF Eyes: No discharge, No no complaints, No other, No pain, No redness, No visual change ENT: congestion, No bleeding, No discharge, No dysphagia, No no complaints, No other, No pain , No sore throat Respiratory: cough, pleuritic pain, shortness of breath, No no complaints, No other, No pain, No sputum, No wheezing Cardiovascular: lightheadedness, orthopenea, palpitations, paroxysmal nocturnal dyspnea (had vt.), No chest pain, No edema, No no complaints, No other Gastrointestinal: constipation, decreased appetite, nausea, No blood, No diarrhea, No flatus, No no complaints, No other, No pain, No passing stool, No vomiting Genitourinary: dysuria, No bleeding, No discharge, No flank pain, No hematuria, No no complaints, No other Musculoskeletal: back pain, bone/joint pain, neck pain, No no complaints, No other, No restricted range of motion, No swelling Skin: bruising, pruritis, rash, No erythema, No laceration, No no complaints, No other, No skin lesions Neurologic: confusion, dizziness, headache Lymphatic: No adenopathy, No lymphadema, No no complaints, No other, No tender nodes Psychological: anxiety, confusion, depression, other (forgetful.), No nl mood/affect, No no complaints, No suicidal Immunologic: pruritis Past Medical History Medical History: angina, coronary artery disease, diabetes, GERD, high cholesterol, hypertension, hypothyroid, renal disease, urinary tract infection Past Surgical History Past Surgical Hx: angioplasty, coronary bypass surgery, endoscopy, other Social History Alcohol Use: none Smoking Status: Never smoker Drug Use: none Exam/Review of Systems Vital Signs Vitals Vital Signs Date Time Temp Pulse Resp B/P Pulse Ox O2 Delivery O2 Flow Rate FiO2 06/02/16 21:45 100 2.0 06/02/16 20:18 Nasal Cannula 2 06/02/16 20:00 69 18 156/64 99 Room Air 06/02/16 19:50 97.1 70 21 165/69 100 Exam Physical Exam Const: No acute distress. Head: Atraumatic. Eyes: Normal Conjunctiva. ENT: Normal External Ears, Nose and Mouth. Neck: Full range of motion. No meningismus. Resp: Bilateral crackle Cardio: Regular rate and rhythm, no murmurs. Abd: Soft, non distended, normal bowel sounds, non tender. Skin: No petechiae or rashes. Back: No midline or flank tenderness. Ext: No cyanosis, or edema. Neur: Awake and alert. No focal deficit Psych: Normal Mood and Affect. Results Laboratory Tests Test 06/02/16 20:30 06/02/16 21:00 Activated Partial Thromboplast Time 30.7Sec Anion Gap 15 Basophils # 0.110^3/ul Basophils % 0.6% Blood Morphology Comment Blood Urea Nitrogen 62mg/dl Calcium Level 8.5mg/dl Carbon Dioxide Level 29mmol/L Chloride Level 98mmol/L Creatinine 4.58mg/dl Eosinophils # 0.310^3/ul Eosinophils % 2.8% Glucose Level 91mg/dl Hematocrit 31.4% Hemoglobin 10.4g/dl INR International Normalized Ratio 1.07 Lymphocytes # 1.710^3/ul Lymphocytes % 15.9% Mean Corpuscular Hemoglobin 29.5pg Mean Corpuscular Hemoglobin Concent 33.0g/dl Mean Corpuscular Volume 89.4fl Mean Platelet Volume 7.0fl Monocytes # 0.810^3/ul Monocytes % 7.3% Neutrophils # 8.010^3/ul Neutrophils % 73.4% Nucleated Red Blood Cells # 0.010^3/ul Nucleated Red Blood Cells % 0.0/100WBC Platelet Count 06809^3/UL Potassium Level 3.9mmol/L Prothrombin Time 13.9Sec Prothrombin Time Ratio 1.1 Red Blood Count 3.5110^6/ul Red Cell Distribution Width 17.9% Sodium Level 138mmol/L Troponin I 0.031ng/ml White Blood Count 10.910^3/ul Arterial Blood HCO3 26.9mmol/L Arterial Blood Base Excess 2.2mmol/L Arterial Blood Oxygen Saturation 97.1mmHG Nikita Test ACCEPTAB Arterial Blood Gas Puncture Site Right Radial Arterial Blood Carboxyhemoglobin 0% Arterial Blood Date Drawn 06/02/2016 9:46:53 PM Arterial Blood Methemoglobin 0.2% Arterial Blood pCO2 (Temp correct) 42.0mmhg Arterial Blood pH (Temp corrected) 7.424 Arterial Blood pO2 (Temp corrected) 99.9mmHG Blood Gas A-a O2 Differential 42.9mmHg Blood Gas Modality NASAL CANNULA Blood Gas Notified Time 06/02/2016 10:01:33 PM Blood Gas Notified Whom AA Blood Gas Specimen Source Blood arterial Blood Gas Temperature 37.0C FiO2 27.0% Oxyhemoglobin Percent 96.9% Total Hemoglobin 11.2g/dl [facility] [place] [address] Radiology Main Line: [phone] DIAGNOSTIC IMAGING REPORT Patient: DOIR ARNDT : 1935 Age: 81 Sex: M [id number] DOS: 06/02/162004 Ordering MD: TIA SALAS MD Location: E/R Room/Bed: PROCEDURE: XR Chest. CLINICAL INDICATION: Shortness of breath. TECHNIQUE: Single frontal view. COMPARISON: 05/21/2016. FINDINGS: There is a tunneled right internal jugular vein dialysis catheter with the tip in the right atrium. Mild interstitial disease bilaterally is unchanged consistent with pulmonary edema. The heart is enlarged. There is calcification in the aorta consistent with atherosclerosis. There is no pleural effusion. There is no pneumothorax. IMPRESSION: 1. No change from 05/21/2016. RPTAT: QQ .Kal Bowens MD, MD Date Time Electronically viewed and signed by .Kal Bowens MD, MD on 06/02/2016 20:39 .R/ CC: TIA SALAS MD EKG: Read by emergency physician Rate/Rhythm: Normal Sinus Rhythm 70 beats/min QRS, ST, T-waves: No ST elevation, no T inversion, first-degree AV block, P SVC Impression: Abnormal EKG Result Diagram: 06/04/1662606/04/16626 Results 24 hrs Laboratory Tests Test 06/05/16 07:40 06/05/16 12:07 06/05/16 17:08 06/05/16 20:56 Bedside Glucose 79 135 129 111 Medications Medications Current Medications Acetaminophen (Tylenol Tab) 650 mg Q6H PRN PO PAIN AND OR ELEVATED TEMP; Start 06/02/16 at 23:00 Carvedilol (Coreg) 12.5 mg BID PO Last administered on 06/05/16t 21:36; Admin Dose 12.5 MG; Start 06/03/16 at 09:00 Clonidine (Catapres) 0.1 mg TID PO Last administered on 06/04/16 21:15; Admin Dose 0.1 MG; Start 06/03/16 at 09:00 Docusate Sodium (Colace) 100 mg Q12 PO Last administered on 06/05/16 21:35; Admin Dose 100 MG; Start 06/03/16 at 09:00 Minoxidil (Loniten) 5 mg BID PO Last administered on 06/05/16 21:35; Admin Dose 5 MG; Start 06/03/16 at 09:00 Nifedipine (Procardia Xl) 30 mg BID PO Last administered on 06/05/16 21:36; Admin Dose 30 MG; Start 06/03/16 at 09:00 Prednisolone (Prelone (Ped)) 15 mg DAILY PO Last administered on 06/05/16 08: 37; Admin Dose 15 MG; Start 06/03/16 at 09:00 Salmeterol Xinafoate/ Fluticasone (Advair 500/50 Diskus) 1 inh BID INH Last administered on 06/05/16 21:37; Admin Dose 1 INH; Start 06/03/16 at 09:00 Senna (Senokot) 1 tab DAILY PRN PO CONSTIPATION; Start 06/02/16 at 23:00 Tamsulosin HCl (Flomax) 0.4 mg HS PO Last administered on 06/05/16 21:36; Admin Dose 0.4 MG; Start 06/03/16 at 21:00 Tiotropium [place] (Spiriva) 1 inh BID INH Last administered on 06/05/16 08:40 ; Admin Dose 1 INH; Start 06/03/16 at 09:00 Valsartan (Diovan) 320 mg DAILY PO Last administered on 06/04/16 17:45; Admin Dose 320 MG; Start 06/03/16 at 09:00 Diagnostic Test (Pha) (Accucheck) 1 ea 02 XX Last administered on 06/05/16 02: 56; Admin Dose 1 EA; Start 06/03/16 at 02:00 Miscellaneous Information 1 ea NOTE XX ; Start 06/03/16 at 07:00 Glucose (Glutose) 15 gm Q15M PRN PO DECREASED GLUCOSE; Start 06/03/16 at 07:00 Glucose (Glutose) 22.5 gm Q15M PRN PO DECREASED GLUCOSE; Start 06/03/16 at 07: 00 Dextrose (D50w Syringe) 25 ml Q15M PRN IV DECREASED GLUCOSE; Start 06/03/16 at 07:00 Dextrose (D50w Syringe) 50 ml Q15M PRN IV DECREASED GLUCOSE; Start 06/03/16 at 07:00 Glucagon (Glucagen) 1 mg Q15M PRN IM DECREASED GLUCOSE; Start 06/03/16 at 07:00 Glucose (Glutose) 15 gm Q15M PRN BUCCAL DECREASED GLUCOSE; Start 06/03/16 at 07 :00 Multivit/Ca Carb/ B Cmplx/FA/Prenat (Katlyn-Michael) 1 tab DAILY PO Last administered on 06/05/16 08:38; Admin Dose 1 TAB; Start 06/03/16 at 09:00 Epoetin Jordon (Epogen (Esrd)) 10,000 units MoWeFr@17 SC Last administered on 17:11; Admin Dose 10,000 UNITS; Start 06/05/16 at 17:00 ANDRE SMITH MD Jun 05, 2016 22:26
[2016-06-06] VITALS (17 sets, daily range): BP systolic 101–169; BP diastolic 51–77; PULSE 68–75; RESP 18–19
[2016-06-06] MEDS: ACCUCHECK XX SCH (01:42)
[2016-06-06] MEDS: LEVOTHYROXINE 125 MCG TAB PO SCH (06:50)
[2016-06-06] MEDS: ALBUTEROL 0.083% (NEB) 2.5 MG/3 ML AMP HHN SCH ×2 (07:33→13:32)
[2016-06-06 07:48] LABS: ADD SCAN DIFF NO
[2016-06-06] MEDS: INSULIN ASPART [NOVOLOG] 3 ML PEN SC SCH ×2 (08:00→12:00)
[2016-06-06 08:06] LABS: POTASSIUM 4.2 mmol/L (3.5-5.1)
[2016-06-06 08:08] LABS: CREATININE 5.92 mg/dl (0.61-1.24)
[2016-06-06 08:09] LABS: CALCIUM 8.5 mg/dl (8.4-10.2); PHOSPHORUS 3.5 mg/dl (2.5-4.9)
[2016-06-06] MEDS: CALCIUM ACETATE 667 MG CAP PO SCH ×2 (08:16→11:47)
[2016-06-06] MEDS: DOCUSATE SODIUM 100 MG CAP PO SCH (08:17)
[2016-06-06] MEDS: MULTIVIT/CA CARB/B CMPLX/FA TAB PO SCH (08:17)
[2016-06-06] MEDS: SALMETEROL/FLUTICASONE 500/50 INHA INH SCH (08:18)
[2016-06-06] MEDS: TIOTROPIUM 18 MCG CAPSULE INHA DEV INH SCH (08:18)
[2016-06-06] MEDS: predniSOLONE (3 MG/ML PO SYG) PO SCH (08:19)
--- NOTE | 2016-06-06 08:46 | PDOCDIS ---
Discharge Instructions CONDITION Patient Condition: Guarded HOME CARE INSTRUCTIONS: Diet Instructions: renal. ACTIVITY: Activity Restrictions: Slowly Increase Activity Bathing Restrictions: Shower FOLLOW UP/APPOINTMENTS Appointments Will folow in SNF. Organize outpatient Hemodialysis. REFERRALS Other Referrals Dr. Lake. SCHOOL/WORK RELEASE May return to School/Work on: Jun 06, 2016 May return to School/Work with: bed rest. Activities as tolerates. HINA CASTILLO MD Jun 06, 2016 08:46
--- NOTE | 2016-06-06 08:49 | DS ---
Date/Time of Note Date/Time of Note DATE: 06/06/16 TIME: 08:47 Discharge Summary Admission/Discharge Info Admit Date/Time Jun 04, 2016 at 11:28 Discharge Date/Time 06/06/2016. Final Diagnosis 1. Acute on chronic respiratory insufficiency, improving. 3. Chest pain during HD today(s/p 2 angiographies and stenting) cardiology consult. 4. End-stage renal disease-on HD-Discuses with . 5. Anxiety, depression with dissatisfaction 6. Diabetes type 2-better controlled 7. Osteoarthritis. 8. Anemia of chronic disease-H/H stable. 9. Status post multiple units of packed red blood cell transfusions. 10. Weight loss-more than 60lb in 8 months. 11. Hypertension-out of control during respiratory distress. 12. Memory impairment. 13. Major depression. 14. Back pain. 15. Benign prostatic hypertrophy. 16. S/P left forearm a/v shunt placement for dialysis-functions well , not mature yet. 17. S/P right Jugular vein cannulation for dialysis-no signs of infection. 18. Hypoxemia with hypercapnia on home 02 and BIPAP. 19. Anxiety; borderline personality; 20. Excessive thirst. 21. Constipation Patient Condition: Guarded Hospital Course Anemia - CHRONIC, MULTIFACTORIAL WITH COMPONENT ACD AND IRON DEFICIENCY CONT TO MONITOR BLOOD COUNT CLOSELY OBSERVE FOR BLEEDING AND HEMOLYSIS TRANSFUSE NEEDED EPO WITH HD LEUKOCYTOSIS REACTIVE MONITOR CLOSELY NOTE THAT PT IS ON ORAL STEROIDS End-stage renal disease, hemodialysis dependent. Right chest Perm-A-Cath. Chronic obstructive pulmonary disease exacerbation. CHF, mild Interstitial and COPD, rx with daily steroids (po) POST RECENT Acute respiratory failure RECENT Pneumonia Home Meds Active Scripts Tiotropium [place]* (Spiriva*) 18 Mcg Cap.w.dev, 1 INH INH BID for 30 Days, #60 CAP Prov:HINA CASTILLO MD 04/28/16 Salmeterol Xinaf-Fluticasone* (Advair*) 500/50 Diskus Inhaler, 1 INH INH BID for 30 Days, #1 CAP.EC Prov:HINA CASTILLO MD 04/28/16 Pantoprazole* (Pantoprazole*) 40 Mg Tablet., 40 MG PO DAILY@06 for 30 Days, # 30 BOX Prov:HINA CASTILLO MD 04/28/16 Nifedipine (Procardia Xl) 30 Mg Tab.er.24, 30 MG PO BID for 30 Days, #30 TAB Prov:HINA CASTILLO MD 04/28/16 Minoxidil* (Lonitin*) 2.5 Mg Tab, 5 MG PO BID for 30 Days, #60 TAB Prov:HINA CASTILLO MD 04/28/16 [Ipratropium 0.02% (Neb)] 0.5 MG/2.5 ML NEBU No Conflict Check, 0.5 MG HHN Q6H RESP THERAPY for 30 Days, #90 CAP Prov:HINA CASTILLO MD 04/28/16 Clonidine Hcl* (Clonidine Hcl*) 0.1 Mg Tab, 0.1 MG PO TID for 30 Days, #90 TAB Prov:HINA CASTILLO MD 04/28/16 Carvedilol* (Carvedilol*) 12.5 Mg Tablet, 12.5 MG PO BID for 30 Days, #60 TAB Prov:HINA CASTILLO MD 04/28/16 Albuterol Sulfate* (Albuterol Sulfate* Neb) 0.083%-3 Ml Neb, 2.5 MG HHN Q6HWA RESP THERAPY for 30 Days, #90 BLIST PACK Prov:HINA CASTILLO MD 04/28/16 Acetaminophen* (Tylenol*) 325 Mg Tablet, 650 MG PO Q6H Y for PAIN AND OR ELEVATED TEMP for 30 Days, #90 TAB Prov:HINA CASTILLO MD 04/28/16 Reported Medications [Heparin 5000U/0.5ML] No Conflict Check, 0.5 ML SC Q12 06/02/16 Prednisolone* (Prelone*) 15 Mg/5 Ml Solution, 15 MG PO DAILY, ML 06/02/16 Multivit/Ca Carb/B Cmplx/Fa* (Katlyn-Michael*) 1 Tab Tab, 1 TAB PO DAILY, TAB 06/02/16 Insulin Aspart (Novolog) 100 Unit/1 Ml Cartridge, 0 SQ SLIDING SCALE BEFORE MEALS; 200-250=2 UNITS, 251-300=4 UNITS, 301-350=6 UNITS, 351-400=8 UNITS,>400=10 UNITS AND CALL 06/02/16 Valsartan* (Diovan*) 160 Mg Tablet, 320 MG PO DAILY, TAB HOLD IF SBP<110;HR 06/02/16 Docusate Sodium* (Docusate Sodium*) 100 Mg Capsule, 100 MG PO Q12, #60 CAP 06/02/16 Calcium Acetate* (Calcium Acetate*) 667 Mg Capsule, 667 MG PO WITH MEALS, #30 CAP 06/02/16 Sennosides* (Senna Lax*) 8.6 Mg Tablet, 1 TAB PO DAILY Y for CONSTIPATION, TAB 01/13/16 Levalbuterol* (Xopenex* HFA) 15 Gm Inha, 2 PUFFS INH Q4H Y for WHEEZING AND SOB , INHALER 01/13/16 Tamsulosin Hcl* (Tamsulosin Hcl*) 0.4 Mg Cap.er.24h, 0.4 MG PO HS, CAP 11/28/15 Levothyroxine Sodium* (Levothyroxine Sodium*) 125 Mcg Tablet, 125 MCG PO BEFORE BREAKFAST, #30 TAB 11/28/15 Discontinued Reported Medications Valsartan* (Diovan*) 320 Mg Tablet, 320 MG PO DAILY, TAB HOLD FOR SBP<110 HR<60(HTN) 01/13/16 Clopidogrel Bisulfate* (Clopidogrel Bisulfate*) 75 Mg Tablet, 75 MG PO DAILY, # 30 TAB 11/28/15 Discontinued Scripts Epoetin Jordon (Epogen) 10,000 Units/Ml Soln, 71725 UNITS SC MoWeFr@17 for 14 Days , #30 DAYSX 3 28 Prov:HINA CASTILLO MD 04/28/16 Follow-up Plan Follow ups in SNF and HD center by Dr. Gtz. Pending Labs Laboratory Tests Test 06/05/16 12:07 06/05/16 17:08 06/05/16 20:56 06/06/16 07:19 Bedside Glucose 135mg/dL (70-220) 129mg/dL (70-220) 111mg/dL (70-220) Anion Gap 15 (8-16) Blood Urea Nitrogen 70mg/dl (7-20) Calcium Level 8.5mg/dl (8.4-10.2) Carbon Dioxide Level 30mmol/L (21-31) Chloride Level 97mmol/L (97-110) Creatinine 5.92mg/dl (0.61-1.24) Glucose Level 85mg/dl (70-220) Phosphorus Level 3.5mg/dl (2.5-4.9) Potassium Level 4.2mmol/L (3.5-5.1) Sodium Level 138mmol/L (135-144) Test 06/06/16 07:24 Bedside Glucose 87mg/dL (70-220) Copies To: CC: TRUE GTZ MD, VAGHARSHAK MD Jun 06, 2016 08:49
[2016-06-06] MEDS: VALSARTAN 160 MG TAB PO SCH (09:00)
[2016-06-06] MEDS: MINOXIDIL 2.5 MG TAB PO SCH (09:00)
[2016-06-06] MEDS: NIFEdipine (XL) 30 MG TAB PO SCH (09:00)
--- NOTE | 2016-06-06 09:10 | CONS ---
Date/Time of Note Date/Time of Note DATE: 06/06/16 TIME: 09:09 Assessment/Plan Assessment/Plan Problems: (1) ESRD (end stage renal disease) on dialysis Comment: on HD... prob to be d/c post hd today (2) CHF (congestive heart failure) Status: Acute Comment: resolving w hd Consultation Date/Type/Reason Admit Date/Time Jun 04, 2016 at 11:28 Initial Consult Date Type of Consultation: neph Referring Provider: HINA CASTILLO MD 24 HR Interval Summary Free Text/Dictation no c/o.. on dialysis now Exam/Review of Systems Vital Signs Vitals Vital Signs Date Time Temp Pulse Resp B/P Pulse Ox O2 Delivery O2 Flow Rate FiO2 06/06/16 08:15 73 06/06/16 07:53 98.0 18 155/67 99 06/06/16 07:41 Nasal Cannula 1.0 Intake and Output 06/05/16 06/05/16 06/06/16 15:00 23:00 07:00 Intake Total 950 ml Output Total 4000 ml Balance -3050 ml Exam Constitutional: alert, oriented Psych: no complaints Neck: supple Respiratory: clear to auscultation Cardiovascular: regular rate and rhythm Extremities: normal pulses Results Result Diagram: 06/04/16 0627 06/06/16 0719 Results 24 hrs Laboratory Tests Test 06/05/16 12:07 06/05/16 17:08 06/05/16 20:56 06/06/16 07:19 Bedside Glucose 135 129 111 Anion Gap 15 Blood Urea Nitrogen 70 H Calcium Level 8.5 Carbon Dioxide Level 30 Chloride Level 97 Creatinine 5.92 H Glucose Level 85 Phosphorus Level 3.5 Potassium Level 4.2 Sodium Level 138 Test 06/06/16 07:24 Bedside Glucose 87 Medications Medications Current Medications Acetaminophen (Tylenol Tab) 650 mg Q6H PRN PO PAIN AND OR ELEVATED TEMP; Start 06/02/16 at 23:00 Carvedilol (Coreg) 12.5 mg BID PO Last administered on 06/05/16 21:36; Admin Dose 12.5 MG; Start 06/03/16 at 09:00 Clonidine (Catapres) 0.1 mg TID PO Last administered on 06/04/16 21:15; Admin Dose 0.1 MG; Start 06/03/16 at 09:00 Docusate Sodium (Colace) 100 mg Q12 PO Last administered on 06/06/16 08:17; Admin Dose 100 MG; Start 06/03/16 at 09:00 Minoxidil (Loniten) 5 mg BID PO Last administered on 06/05/16 21:35; Admin Dose 5 MG; Start 06/03/16 at 09:00 Nifedipine (Procardia Xl) 30 mg BID PO Last administered on 06/05/16 21:36; Admin Dose 30 MG; Start 06/03/16 at 09:00 Prednisolone (Prelone (Ped)) 15 mg DAILY PO Last administered on 06/06/16 08: 19; Admin Dose 15 MG; Start 06/03/16 at 09:00 Salmeterol Xinafoate/ Fluticasone (Advair 500/50 Diskus) 1 inh BID INH Last administered on 06/06/16 08:18; Admin Dose 1 INH; Start 06/03/16 at 09:00 Senna (Senokot) 1 tab DAILY PRN PO CONSTIPATION; Start 06/02/16 at 23:00 Tamsulosin HCl (Flomax) 0.4 mg HS PO Last administered on 06/05/16 21:36; Admin Dose 0.4 MG; Start 06/03/16 at 21:00 Tiotropium [place] (Spiriva) 1 inh BID INH Last administered on 06/06/16 08:18 ; Admin Dose 1 INH; Start 06/03/16 at 09:00 Valsartan (Diovan) 320 mg DAILY PO Last administered on 06/04/16 17:45; Admin Dose 320 MG; Start 06/03/16 at 09:00 Diagnostic Test (Pha) (Accucheck) 1 ea 02 XX Last administered on 06/05/16 02: 56; Admin Dose 1 EA; Start 06/03/16 at 02:00 Miscellaneous Information 1 ea NOTE XX ; Start 06/03/16 at 07:00 Glucose (Glutose) 15 gm Q15M PRN PO DECREASED GLUCOSE; Start 06/03/16 at 07:00 Glucose (Glutose) 22.5 gm Q15M PRN PO DECREASED GLUCOSE; Start 06/03/16 at 07: 00 Dextrose (D50w Syringe) 25 ml Q15M PRN IV DECREASED GLUCOSE; Start 06/03/16 at 07:00 Dextrose (D50w Syringe) 50 ml Q15M PRN IV DECREASED GLUCOSE; Start 06/03/16 at 07:00 Glucagon (Glucagen) 1 mg Q15M PRN IM DECREASED GLUCOSE; Start 06/03/16 at 07:00 Glucose (Glutose) 15 gm Q15M PRN BUCCAL DECREASED GLUCOSE; Start 06/03/16 at 07 :00 Multivit/Ca Carb/ B Cmplx/FA/Prenat (Katlyn-Michael) 1 tab DAILY PO Last administered on 06/06/16 08:17; Admin Dose 1 TAB; Start 06/03/16 at 09:00 Epoetin Jordon (Epogen (Esrd)) 10,000 units MoWeFr@17 SC Last administered on 17:11; Admin Dose 10,000 UNITS; Start 06/05/16 at 17:00 ELENO MIR MD Jun 06, 2016 09:10
[2016-06-06 09:14] LABS: BASOPHILS % 0.6 % (0.0-2.0); EOSINOPHILS # 0.3 10^3/ul (0.0-0.5); EOSINOPHILS % 4.7 % (0.0-7.0); HEMATOCRIT 29.8 % (42.0-52.0); HEMOGLOBIN 9.2 g/dl (14.0-18.0); LYMPHOCYTES # 2.3 10^3/ul (0.8-2.9); LYMPHOCYTES % 33.3 % (15.0-51.0); MEAN CORPUSCULAR HEMOGLOBIN 28.4 pg (29.0-33.0); MEAN CORPUSCULAR HGB CONC 30.9 g/dl (32.0-37.0); MEAN PLATELET VOLUME 9.7 fl (7.4-10.4); MONOCYTE # 0.6 10^3/ul (0.3-0.9); NEUTROPHIL # 3.6 10^3/ul (1.6-7.5); NEUTROPHILS % 52.8 % (39.0-77.0); PLATELET COUNT 161 10^3/UL (140-415); RED BLOOD COUNT 3.24 10^6/ul (4.70-6.10); RED CELL DISTRIBUTION WIDTH 15.7 % (11.5-14.5); WHITE BLOOD COUNT 6.9 10^3/ul (4.8-10.8)
--- NOTE | 2016-06-06 12:13 | CONS ---
Date/Time of Note Date/Time of Note DATE: 06/06/16 TIME: 12:13 Assessment/Plan Assessment/Plan Chief Complaint/Hosp Course Anemia - CHRONIC, MULTIFACTORIAL WITH COMPONENT ACD AND IRON DEFICIENCY CONT TO MONITOR BLOOD COUNT CLOSELY OBSERVE FOR BLEEDING AND HEMOLYSIS TRANSFUSE NEEDED EPO WITH HD LEUKOCYTOSIS REACTIVE MONITOR CLOSELY NOTE THAT PT IS ON ORAL STEROIDS End-stage renal disease, hemodialysis dependent. Right chest Perm-A-Cath. Chronic obstructive pulmonary disease exacerbation. CHF, mild Interstitial and COPD, rx with daily steroids (po) POST RECENT Acute respiratory failure RECENT Pneumonia Problems: Consultation Date/Type/Reason Admit Date/Time Jun 04, 2016 at 11:28 Initial Consult Date 06.02.16 Type of Consultation: HEMEON Referring Provider: HINA CASTILLO MD 24 HR Interval Summary Free Text/Dictation ALL NOTED FELLING BETTER Exam/Review of Systems Vital Signs Vitals Vital Signs Date Time Temp Pulse Resp B/P Pulse Ox O2 Delivery O2 Flow Rate FiO2 06/06/16 11:58 97.2 78 18 118/56 97 06/06/16 07:41 Nasal Cannula 1.0 Intake and Output 06/05/16 06/05/16 06/06/16 15:00 23:00 07:00 Intake Total 950 ml Output Total 4000 ml Balance -3050 ml Exam Constitutional: alert, distress, well developed, No frail, No non-verbal, No oriented, No other Psych: anxiety, confusion, depression, No nl mood/affect, No no complaints, No other, No suicidal Head: atraumatic, No hematomas, No lacerations, No normocephalic, No other Eyes: EOMI, PERRL, No fundi, disc, No icteric, No nl conjunctiva, No nl lids, No nl sclera, No other ENMT: tympanic membranes, No intubated, No mucosa pink and moist, No nl external ears & nose, No nl lips & teeth, No nl nasal mucosa & septum, No other Neck: bruits, jvd, nuchal rigidity, No masses, No non-tender, No other, No supple, No thyromegaly Respiratory: congested cough, diminished breath sounds, No clear to auscultation, No crackles/rales, No intercostal retraction, No labored breathing, No normal air movement, No other, No respirations, No tactile fremitus, No wheezing Cardiovascular: bruits, diastolic murmur, irregular rhythm, jugular venous distention (JVD), systolic murmur Gastrointestinal: bowel sounds, distended, nl liver, spleen, non-tender, soft, No ascites, No firm, No hepatomegaly, No mass, No other, No rebound or guarding, No splenomegaly, No surgical scars, No tender Genitourinary - Male: No CVA tenderness, No discharge, No nl penis, No nl scrotum, No other Musculoskeletal: joint tenderness, muscle tone, muscle weakness Neurological: 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 (hearing impairment.), nl mental status ( Forgetful, anxious,tense, irritable, dissatisfied, but states of doing better than before.) Skin: diaphoresis, ecchymosis Lymph: No enlarged, No nl lymph nodes, No nontender, No other Results Result Diagram: 06/06/16 0706/06/16 0719 Results 24 hrs Laboratory Tests Test 06/05/16 17:08 06/05/16 20:56 06/06/16 07:19 06/06/16 07:24 Bedside Glucose 129 111 87 Anion Gap 15 Basophils # 0.0 Basophils % 0.6 Blood Urea Nitrogen 70 H Calcium Level 8.5 Carbon Dioxide Level 30 Chloride Level 97 Creatinine 5.92 H Eosinophils # 0.3 Eosinophils % 4.7 Glucose Level 85 Hematocrit 29.8 L Hemoglobin 9.2 L Lymphocytes # 2.3 Lymphocytes % 33.3 Mean Corpuscular Hemoglobin 28.4 L Mean Corpuscular Hemoglobin Concent 30.9 L Mean Corpuscular Volume 92.0 Mean Platelet Volume 9.7 Monocytes # 0.6 Monocytes % 8.0 Neutrophils # 3.6 Neutrophils % 52.8 Nucleated Red Blood Cells # 0.0 Nucleated Red Blood Cells % 0.0 Phosphorus Level 3.5 Platelet Count 161 Potassium Level 4.2 Red Blood Count 3.24 L Red Cell Distribution Width 15.7 H Sodium Level 138 White Blood Count 6.9 Test 06/06/16 11:43 Bedside Glucose 107 Medications Medications Current Medications Acetaminophen (Tylenol Tab) 650 mg Q6H PRN PO PAIN AND OR ELEVATED TEMP; Start 06/02/16 at 23:00 Carvedilol (Coreg) 12.5 mg BID PO Last administered on 06/05/16t 21:36; Admin Dose 12.5 MG; Start 06/03/16 at 09:00 Clonidine (Catapres) 0.1 mg TID PO Last administered on 06/04/16 21:15; Admin Dose 0.1 MG; Start 06/03/16 at 09:00 Docusate Sodium (Colace) 100 mg Q12 PO Last administered on 06/06/16 08:17; Admin Dose 100 MG; Start 06/03/16 at 09:00 Minoxidil (Loniten) 5 mg BID PO Last administered on 06/05/16 21:35; Admin Dose 5 MG; Start 06/03/16 at 09:00 Nifedipine (Procardia Xl) 30 mg BID PO Last administered on 06/05/16 21:36; Admin Dose 30 MG; Start 06/03/16 at 09:00 Prednisolone (Prelone (Ped)) 15 mg DAILY PO Last administered on 06/06/16 08: 19; Admin Dose 15 MG; Start 06/03/16 at 09:00 Salmeterol Xinafoate/ Fluticasone (Advair 500/50 Diskus) 1 inh BID INH Last administered on 06/06/16 08:18; Admin Dose 1 INH; Start 06/03/16 at 09:00 Senna (Senokot) 1 tab DAILY PRN PO CONSTIPATION; Start 06/02/16 at 23:00 Tamsulosin HCl (Flomax) 0.4 mg HS PO Last administered on 06/05/16 21:36; Admin Dose 0.4 MG; Start 06/03/16 at 21:00 Tiotropium [place] (Spiriva) 1 inh BID INH Last administered on 06/06/16 08:18 ; Admin Dose 1 INH; Start 06/03/16 at 09:00 Valsartan (Diovan) 320 mg DAILY PO Last administered on 06/04/16 17:45; Admin Dose 320 MG; Start 06/03/16 at 09:00 Diagnostic Test (Pha) (Accucheck) 1 ea 02 XX Last administered on 06/05/16 02: 56; Admin Dose 1 EA; Start 06/03/16 at 02:00 Miscellaneous Information 1 ea NOTE XX ; Start 06/03/16 at 07:00 Glucose (Glutose) 15 gm Q15M PRN PO DECREASED GLUCOSE; Start 06/03/16 at 07:00 Glucose (Glutose) 22.5 gm Q15M PRN PO DECREASED GLUCOSE; Start 06/03/16 at 07: 00 Dextrose (D50w Syringe) 25 ml Q15M PRN IV DECREASED GLUCOSE; Start 06/03/16 at 07:00 Dextrose (D50w Syringe) 50 ml Q15M PRN IV DECREASED GLUCOSE; Start 06/03/16 at 07:00 Glucagon (Glucagen) 1 mg Q15M PRN IM DECREASED GLUCOSE; Start 06/03/16 at 07:00 Glucose (Glutose) 15 gm Q15M PRN BUCCAL DECREASED GLUCOSE; Start 06/03/16 at 07 :00 Multivit/Ca Carb/ B Cmplx/FA/Prenat (Katlyn-Michael) 1 tab DAILY PO Last administered on 06/06/16 08:17; Admin Dose 1 TAB; Start 06/03/16 at 09:00 Epoetin Jordon (Epogen (Esrd)) 10,000 units MoWeFr@17 SC Last administered on 17:11; Admin Dose 10,000 UNITS; Start 06/05/16 at 17:00 ANDRE SMITH MD Jun 06, 2016 12:13
== END 2016-06-06 17:44 | DRG 291 ==
LOC: E/R 19:44 → MS4 21:48 → OBSVTOIN 06-04 11:28
PROVIDERS: ADMIT Family Medicine; ATTEND Family Medicine
PROC: 5A1D60Z (ICD-10-PCS; principal; 2016-06-04)
DX: I13.2 Hypertensive heart and chronic kidney disease with heart failure and with stage 5 chronic kidney disease, or end stage renal disease (principal); N18.6 End stage renal disease; J44.9 Chronic obstructive pulmonary disease, unspecified; E11.9 Type 2 diabetes mellitus without complications; F32.9 Major depressive disorder, single episode, unspecified; D64.89 Other specified anemias; Z99.2 Dependence on renal dialysis; R07.9 Chest pain, unspecified; Z95.1 Presence of aortocoronary bypass graft; R63.4 Abnormal weight loss; Z68.26 Body mass index [BMI] 26.0-26.9, adult; N40.0 Benign prostatic hyperplasia without lower urinary tract symptoms; I50.9 Heart failure, unspecified
CPT/HCPCS: 36415; 36600; 71010; 80048; 82803; 82962; 84100; 84484; 85025; 85610; 85730; 87070; 90935; 93005; 94640; 94664; G0378; J0886; J1815; J7510

== ENCOUNTER 2016-08-11 08:55 | Inpatient (IN) | payer MEDICARE, BC ==
[~2016-08-11] VITALS: Ht 167.6 cm; Wt 85.0 kg
[2016-08-11] VITALS (37 sets, daily range): BP systolic 81–194; BP diastolic 54–94; PULSE 75–106; RESP 18–31; Ht 167.6 cm; Wt 85.0 kg
[~2016-08-11 08:55] MED LIST changes: +CALC667C PO; -CLOP75TA4 PO; +DOCU-159 PO; -EPO10ESRD SC; +HEPARIN SC; +INSU100C3 SQ; +LEVA15HF6 INH; -MIN25 PO; +MINO2.5T16 PO; +NEPH PO; +PRED15SO PO; +VALS160T20 PO; -VALS320T11 PO; -XOP15INH INH
[2016-08-11] MEDS ORDERED: FUROSEMIDE 40 MG INJ IV STA (09:09)
[2016-08-11 09:54] LABS: ADD SCAN DIFF NO
[2016-08-11 10:05] LABS: ABNORMAL IP MESSAGE 1; BASOPHILS % 0.2 % (0.0-2.0); EOSINOPHILS # 0.2 10^3/ul (0.0-0.5); EOSINOPHILS % 4.2 % (0.0-7.0); HEMATOCRIT 14.4 % (42.0-52.0); LYMPHOCYTES # 0.9 10^3/ul (0.8-2.9); LYMPHOCYTES % 14.9 % (15.0-51.0); MEAN CORPUSCULAR HEMOGLOBIN 30.9 pg (29.0-33.0); MEAN CORPUSCULAR HGB CONC 31.9 g/dl (32.0-37.0); MEAN CORPUSCULAR VOLUME 96.6 fl (82.0-101.0); MEAN PLATELET VOLUME 8.3 fl (7.4-10.4); MONOCYTE # 0.4 10^3/ul (0.3-0.9); MONOCYTES % 7.4 % (0.0-11.0); NEUTROPHIL # 4.2 10^3/ul (1.6-7.5); NEUTROPHILS % 72.6 % (39.0-77.0); PLATELET COUNT 90 10^3/UL (140-415); RED BLOOD COUNT 1.49 10^6/ul (4.70-6.10); RED CELL DISTRIBUTION WIDTH 15.3 % (11.5-14.5); WHITE BLOOD COUNT 5.8 10^3/ul (4.8-10.8)
[2016-08-11 10:10] LABS: INR 1.6; PROTIME 19.2 Sec (12.2-14.2); PT RATIO 1.5
[2016-08-11 10:11] LABS: PARTIAL THROMBOPLASTIN TIME 43.1 Sec (25.0-35.0)
[2016-08-11 10:13] LABS: CREATININE 7.48 mg/dl (0.61-1.24)
--- NOTE | 2016-08-11 10:15 | RADRPT ---
PROCEDURE: XR Chest. CLINICAL INDICATION: Shortness of breath TECHNIQUE: Single frontal chest x-ray. COMPARISON: Chest x-ray 06/02/2016 FINDINGS: Prominent interstitial markings bilaterally has increased from prior. Patchy bibasilar atelectasis. The cardiomediastinal silhouette is enlarged. Small bilateral pleural effusions. Aortic atherosclerotic calcifications. Degenerative changes to the thoracic spine are seen. Prior right internal jugular central venous catheter has been removed. IMPRESSION: Prominent interstitial markings bilaterally has increased from prior consistent with vascular conges tion. Patchy bibasilar atelectasis. The cardiomediastinal silhouette is enlarged. RPTAT: AA .Jace Jade MD, Date Time Electronically viewed and signed by .Jace Jade MD, on 08/11/2016 10:15 .T/
[2016-08-11 10:24] LABS: CALCIUM 5.8 mg/dl (8.4-10.2); HEMOGLOBIN 4.6 g/dl (14.0-18.0); POTASSIUM 2.7 mmol/L (3.5-5.1)
[2016-08-11 10:25] LABS: TROPONIN-I 0.038 ng/ml (0.00-0.12)
[2016-08-11] MEDS ORDERED: SOD CHLORIDE 0.9% 250 ML IV ONE (10:28)
[2016-08-11] MEDS ORDERED: NACL 0.9% 3 ML SYG IV SCH (10:30)
[2016-08-11] MEDS ORDERED: HYDROCODONE/APAP (5/325) TAB PO PRN (10:30)
[2016-08-11] MEDS ORDERED: ACETAMINOPHEN 325 MG TAB PO PRN ×2 (10:30)
[2016-08-11] MEDS ORDERED: ZOLPIDEM 5 MG TAB PO PRN (10:30)
[2016-08-11] MEDS ORDERED: POTASSIUM CHLORIDE 250 ML IVPB ONE (10:30)
[2016-08-11] MEDS ORDERED: ALBUTEROL/IPRATROPIUM (NEB) 3 ML AMP HHN PRN (10:30)
[2016-08-11] MEDS ORDERED: ONDANSETRON 4 MG INJ IV PRN ×2 (10:30)
[2016-08-11] MEDS ORDERED: SENNA TAB PO PRN (10:30)
[2016-08-11] MEDS ORDERED: DOCUSATE SODIUM 100 MG CAP PO PRN (10:30)
[2016-08-11] MEDS ORDERED: morphine 2 MG INJ IV PRN (10:30)
--- NOTE | 2016-08-11 10:52 | ERA ---
ER Documentation Chief Complaint Date/Time DATE: 08/11/16 TIME: 10:48 Chief Complaint SHORTNESS OF BREATH ; DIALYSIS PT HPI Patient is a 81-year-old male with CHF, COPD, and dialysis who presents with shortness of breath. The symptoms started yesterday morning but were worse this morning. The patient went to the [facility] emergency department this morning but was discharged as he is not a [facility] member. The patient is due for dialysis today and did not have a full dialysis on Wednesday. His primary doctor is Dr. Castillo. Upon review of old medical records the patient has multiple visits with admissions. ROS All systems reviewed and are negative except as per history of present illness. Medications Home Meds Active Scripts Tiotropium Nunda* (Spiriva*) 18 Mcg Cap.w.dev, 1 INH INH BID for 30 Days, #60 CAP Prov:HINA CASTILLO MD 04/28/16 Salmeterol Xinaf-Fluticasone* (Advair*) 500/50 Diskus Inhaler, 1 INH INH BID for 30 Days, #1 CAP.EC Prov:HINA CASTILLO MD 04/28/16 Pantoprazole* (Pantoprazole*) 40 Mg Tablet.dr, 40 MG PO DAILY@06 for 30 Days, # 30 BOX Prov:HINA CASTILLO MD 04/28/16 Nifedipine (Procardia Xl) 30 Mg Tab.er.24, 30 MG PO BID for 30 Days, #30 TAB Prov:HINA CASTILLO MD 04/28/16 Minoxidil* (Lonitin*) 2.5 Mg Tab, 5 MG PO BID for 30 Days, #60 TAB Prov:HINA CASTILLO MD 04/28/16 [Ipratropium 0.02% (Neb)] 0.5 MG/2.5 ML NEBU No Conflict Check, 0.5 MG HHN Q6H RESP THERAPY for 30 Days, #90 CAP Prov:HINA CASTILLO MD 04/28/16 Clonidine Hcl* (Clonidine Hcl*) 0.1 Mg Tab, 0.1 MG PO TID for 30 Days, #90 TAB Prov:HINA CASTILLO MD 04/28/16 Carvedilol* (Carvedilol*) 12.5 Mg Tablet, 12.5 MG PO BID for 30 Days, #60 TAB Prov:HINA CASTILLO MD 04/28/16 Albuterol Sulfate* (Albuterol Sulfate* Neb) 0.083%-3 Ml Neb, 2.5 MG HHN Q6HWA RESP THERAPY for 30 Days, #90 BLIST PACK Prov:HINA CASTILLO MD 04/28/16 Acetaminophen* (Tylenol*) 325 Mg Tablet, 650 MG PO Q6H Y for PAIN AND OR ELEVATED TEMP for 30 Days, #90 TAB Prov:HINA CASTILLO MD 04/28/16 Reported Medications [Heparin 5000U/0.5ML] No Conflict Check, 0.5 ML SC Q12 06/02/16 Prednisolone* (Prelone*) 15 Mg/5 Ml Solution, 15 MG PO DAILY, ML 06/02/16 Multivit/Ca Carb/B Cmplx/Fa* (Katlyn-Michael*) 1 Tab Tab, 1 TAB PO DAILY, TAB 06/02/16 Insulin Aspart (Novolog) 100 Unit/1 Ml Cartridge, 0 SQ SLIDING SCALE BEFORE MEALS; 200-250=2 UNITS, 251-300=4 UNITS, 301-350=6 UNITS, 351-400=8 UNITS,>400=10 UNITS AND CALL 06/02/16 Valsartan* (Diovan*) 160 Mg Tablet, 320 MG PO DAILY, TAB HOLD IF SBP<110;HR 06/02/16 Docusate Sodium* (Docusate Sodium*) 100 Mg Capsule, 100 MG PO Q12, #60 CAP 06/02/16 Calcium Acetate* (Calcium Acetate*) 667 Mg Capsule, 667 MG PO WITH MEALS, #30 CAP 06/02/16 Sennosides* (Senna Lax*) 8.6 Mg Tablet, 1 TAB PO DAILY Y for CONSTIPATION, TAB 01/13/16 Levalbuterol* (Xopenex* HFA) 15 Gm Inha, 2 PUFFS INH Q4H Y for WHEEZING AND SOB , INHALER 01/13/16 Tamsulosin Hcl* (Tamsulosin Hcl*) 0.4 Mg Cap.er.24h, 0.4 MG PO HS, CAP 11/28/15 Levothyroxine Sodium* (Levothyroxine Sodium*) 125 Mcg Tablet, 125 MCG PO BEFORE BREAKFAST, #30 TAB 11/28/15 Allergies Allergies: Coded Allergies: No Known Allergy (Unverified , 06/02/16) PMhx/Soc Anesthesia Reaction: No Hx Neurological Disorder: No Hx Respiratory Disorders: Yes (SOB) Hx Cardiac Disorders: Yes (CHF, HTN, ) Hx Psychiatric Problems: Yes (depression, anxiety, demanding personality) Hx Miscellaneous Medical Probl: Yes (ANEMIA, HD TTHS) Hx Alcohol Use: No Hx Substance Use: No Hx Tobacco Use: No Smoking Status: Former smoker FmHx Family History: No diabetes Physical Exam Vitals Vital Signs Date Time Temp Pulse Resp B/P Pulse Ox O2 Delivery O2 Flow Rate FiO2 08/11/16 08:57 98.9 105 28 230/92 98 Physical Exam Const: Moderate distress secondary to shortness of breath Head: Atraumatic Eyes: Normal Conjunctiva ENT: Normal External Ears, Nose and Mouth. Neck: Full range of motion..~ No meningismus. Resp: Decreased breath sounds bilaterally with tachypnea Cardio: Regular rate and rhythm, no murmurs Abd: Soft, non tender, non distended. Normal bowel sounds Skin: Pale Back: No midline or flank tenderness Ext: No cyanosis, or edema Neur: Awake and alert Result Diagram: 08/11/16 0950 08/11/16 0950 Results 24 hrs Laboratory Tests Test 08/11/16 09:50 White Blood Count 5.810^3/ul Red Blood Count 1.4910^6/ul Hemoglobin 4.6g/dl Hematocrit 14.4% Mean Corpuscular Volume 96.6fl Mean Corpuscular Hemoglobin 30.9pg Mean Corpuscular Hemoglobin Concent 31.9g/dl Red Cell Distribution Width 15.3% Platelet Count 9010^3/UL Mean Platelet Volume 8.3fl Neutrophils % 72.6% Lymphocytes % 14.9% Monocytes % 7.4% Eosinophils % 4.2% Basophils % 0.2% Nucleated Red Blood Cells % 0.0/100WBC Neutrophils # 4.210^3/ul Lymphocytes # 0.910^3/ul Monocytes # 0.410^3/ul Eosinophils # 0.210^3/ul Basophils # 0.010^3/ul Nucleated Red Blood Cells # 0.010^3/ul Prothrombin Time 19.2Sec Prothrombin Time Ratio 1.5 INR International Normalized Ratio 1.60 Activated Partial Thromboplast Time 43.1Sec Sodium Level 138mmol/L Potassium Level 2.7mmol/L Chloride Level 110mmol/L Carbon Dioxide Level 11mmol/L Anion Gap 20 Blood Urea Nitrogen 64mg/dl Creatinine 7.48mg/dl Glucose Level 57mg/dl Calcium Level 5.8mg/dl Troponin I 0.038ng/ml Current Medications Medications (Trade) Dose Ordered Sig/Bettina Route PRN Reason Start Time Stop Time Status Last Admin Dose Admin Furosemide (Lasix) 40 mg ONCE STAT IV 08/11/16 09:09 08/11/16 09:10 DC 08/11/16 09:30 Ondansetron HCl (Zofran Inj) 4 mg ER BRIDGE PRN IV NAUSEA AND/OR VOMITING 08/11/16 10:30 08/12/16 10:29 Acetaminophen (Tylenol Tab) 650 mg ER BRIDGE PRN PO MILD PAIN/FEVER 08/11/16 10:30 08/12/16 10:29 Acetaminophen (Tylenol Tab) 650 mg Q6H PRN PO PAIN AND OR ELEVATED TEMP 08/11/16 10:30 Calcium Acetate (Phoslo) 667 mg WITH MEALS PO 08/11/16 12:00 Carvedilol (Coreg) 12.5 mg BID PO 08/11/16 21:00 Clonidine (Catapres) 0.1 mg TID PO 08/11/16 13:00 Docusate Sodium (Colace) 100 mg Q12 PO 08/11/16 21:00 Levothyroxine Sodium (Synthroid) 125 mcg BEFORE BREAKFAST PO 08/12/16 07:00 Minoxidil (Loniten) 5 mg BID PO 08/11/16 21:00 Multivit/Ca Carb/ B Cmplx/FA/Prenat (Katlyn-Michael) 1 tab DAILY PO 08/12/16 09:00 Nifedipine (Procardia Xl) 30 mg BID PO 08/11/16 21:00 Pantoprazole (Protonix Tab) 40 mg DAILY@06 PO 08/12/16 06:00 Salmeterol Xinafoate/ Fluticasone (Advair 500/50 Diskus) 1 inh BID INH 08/11/16 21:00 Senna (Senokot) 1 tab DAILY PRN PO CONSTIPATION 08/11/16 10:30 Tamsulosin HCl (Flomax) 0.4 mg HS PO 08/11/16 21:00 Tiotropium [place]unda (Spiriva) 1 inh BID INH 08/11/16 21:00 IV Flush (NS 3 ml) 3 ml PER PROTOCOL IV 08/11/16 10:30 Ondansetron HCl (Zofran Inj) 4 mg Q4H PRN IV NAUSEA AND/OR VOMITING 08/11/16 10:30 Acetaminophen/ Hydrocodone Bitart ([place] (5/325)) 1 tab Q6H PRN PO MODERATE PAIN LEVEL 4-6 08/11/16 10:30 Morphine Sulfate (morphine) 1 mg Q4H PRN IV SEVERE PAIN LEVEL 7-10 08/11/16 10:30 Docusate Sodium (Colace) 100 mg Q12H PRN PO CONSTIPATION 08/11/16 10:30 Zolpidem Tartrate (Ambien) 5 mg QHS PRN PO SLEEP 08/11/16 10:30 Heparin Sodium (Porcine) (Heparin (5000 Units/0.5 ml)) 5,000 unit Q12 SC 08/11/16 21:00 Albuterol/ Ipratropium (Duoneb) 3 ml Q6H RESP THERAPY HHN 08/11/16 14:00 Albuterol/ Ipratropium 3 ml 3 ml Q2H RESP THERAPY PRN HHN SHORTNESS OF BREATH 08/11/16 10:30 Calcium Gluconate 1 gm/Sodium Chloride 110 ml @ 110 mls/hr ONCE ONCE IVPB 08/11/16 11:00 08/11/16 11:59 Potassium Chloride 250 ml @ 62.5 mls/hr ONCE ONCE IVPB 08/11/16 10:30 08/11/16 14:29 Sodium Chloride (NS) 250 ml @ 0 mls/hr Q0M ONCE IV 08/11/16 10:28 08/11/16 10:29 DC Procedures/MDM EKG read by me: Rate/Rhythm: First-degree AV block at a rate of 95 Intervals: Prolonged AK interval Impression: First-degree AV block without ischemia Chest x-ray shows pulmonary edema per radiology. Patient is a 81-year-old male with COPD, CHF, and dialysis who presents with shortness of breath. The patient was found to have severe anemia with a hemoglobin of 4. The patient will be transfused 4 units of packed red blood cells. He was also found to have hypokalemia and will be given potassium. He was found to have hypocalcemia and will be given calcium. The patient will also need admission to the intensive care unit as he is severely acidotic. He will need urgent dialysis. I have spoken with Dr. Nahid Smith who is covering for [place] insurance which the patient has. Dr. Smith has come to the bedside to see the patient and arrange dialysis. I have also ordered BiPAP as I am concerned the patient will become more fluid overloaded as he is given blood products. Critical Care: Time: 35 minutes excluding all billable procedures. Treatments/Evaluations: Close monitoring and treatment of unstable vital signs, cardiorespiratory, and neurologic status, while maintaining tight balance of fluid, respiratory, and cardiac interventions. Departure Diagnosis: Primary Impression: Anemia Qualified Code: D64.9 - Anemia, unspecified type Additional Impressions: Shortness of breath CHF (congestive heart failure) Qualified Code: I50.9 - Acute congestive heart failure, unspecified congestive heart failure type ESRD (end stage renal disease) on dialysis Hypokalemia Hypocalcemia Condition: Critical CADY AREVALO MD August 11, 2016 10:52
[2016-08-11] MEDS ORDERED: CALCIUM GLUCONATE 10% 1 GM in SOD CHLORIDE 0.9% 100 ML IVPB ONE (11:00)
[2016-08-11] MEDS ORDERED: POTASSIUM CHLORIDE (SR) 20 MEQ TAB PO STA (11:04)
[2016-08-11] MEDS: CALCIUM ACETATE 667 MG CAP PO SCH ×2 (12:00→16:16)
[2016-08-11] MEDS ORDERED: PHYTONADIONE 10 MG/ML INJ IM ONE (13:00)
[2016-08-11] MEDS ORDERED: PHYTONADIONE (1 MG/ML PO SYG) PO ONE (13:00)
[2016-08-11 13:46] LABS: AADO2 Arterial 52.1 mmHg (7.0-24.0); Allen Test ACCEPTAB; Arterial Base Excess -4.6 mmol/L (-3.0-3); Arterial COHb 0.4 % (0.0-3.0); Arterial Fraction of Oxyhgb 96.7 % (93.0-99.0); Arterial HCO3 21.3 mmol/L (22.0-26.0); Arterial MetHb 0.4 % (0.0-1.5); MODE NASAL CANNULA
[2016-08-11 14:04] LABS: IRON 36 ug/dl (35-150)
[2016-08-11 14:07] LABS: RETICULOCYTE COUNT % 1.2 % (0.5-1.5)
[2016-08-11 14:14] LABS: TOTAL IRON BINDING CAPACITY 151 ug/dl (241-421)
--- NOTE | 2016-08-11 15:18 | HP ---
Date/Time of Note Date/Time of Note DATE: 08/11/16 TIME: 15:10 Assessment/Plan VTE Prophylaxis VTE Prophylaxis Intervention: LMWH VTE Contraindication Reason: peripheral vascular disease Lines/Catheters (ICD-10 Req.) Central line still needed: No Horton in Place (from Nrsg): Yes Cont'd horton catheter reason: terminal illness/intractable pain Assessment/Plan Assessment/Plan 1. Acute on chronic respiratory insufficiency,on bronchodilatations and 02. 2. Acute GI bleeding with drop of h/h. Was on home steroids now 5 mg qd more than 2 months. 3. Sepsis-cultures pending. 4. End-stage renal disease-on HD-Discuses with .Chronic metabolic acidosis and hypokalemia with hypocapnia. 5. Anxiety, depression with dissatisfaction 6. Diabetes type 2-better controlled 7. Osteoarthritis. 8. Anemia of chronic disease-H/H 07/24 9. Status post multiple units of packed red blood cell transfusions-now getting more.. 10. Weight loss-more than 60lb in 11 months. 11. Hypertension-out of control during respiratory distress. 12. Memory impairment. 13. Major depression. 14. Back pain. 15. Benign prostatic hypertrophy. 16. S/P left forearm a/v shunt placement for dialysis-functions well , not mature yet. 17. S/P right Jugular vein cannulation for dialysis-no signs of infection. 18. Hypoxemia with hypercapnia(Hx of) on home 02 and BIPAP. 19. Anxiety; borderline personality; 20. Excessive thirst. 21. Constipation 22.Chest pain during HD today frequently(s/p 2 angiographies and stenting)cardiology consult. 23.Terminally ill with inability to deside DNR status. He refused to answer. Macario Banegas received a modesto from RN that he agreed for DNR and DNI. 24.Incomplete data. Encounter Type: Counseling (Jaya.) HPI/ROS Admit Date/Time Admit Date/Time Severe sob with decreased level of awareness getting worse last 5 days. Was in [place] [facility] today in am. D/c after iv antibiotics. Family called me to transfer to [facility] [place]. Tried to organize a transportation. Was d/c-d from [facility]; According to family no attempt was made to transfer. Family brought in by their car. Now under HD and getting blood TX.August 11, 2016 at 14:20.Discussed with . ROS Subjective hx not possible: pt critical Constitutional: diaphoresis, disoriented, fatigue, nausea, poor po, weight change, No chills, No febrile, No improved, No no complaints, No other Eyes: visual change ENT: congestion, dysphagia, sore throat, No bleeding, No discharge, No no complaints, No other, No pain Respiratory: cough, other (grasping air.), shortness of breath, sputum, wheezing, No no complaints, No pain, No pleuritic pain Cardiovascular: lightheadedness, palpitations, paroxysmal nocturnal dyspnea Gastrointestinal: constipation, decreased appetite, flatus, other (didn'td d check jared melena.), passing stool, No blood, No diarrhea, No nausea, No no complaints, No pain, No vomiting Genitourinary: dysuria, No bleeding, No discharge, No flank pain, No hematuria, No no complaints, No other Musculoskeletal: back pain, bone/joint pain, neck pain, restricted range of motion, No no complaints, No other, No swelling Skin: pruritis, rash, No bruising, No erythema, No laceration, No no complaints, No other, No skin lesions Endocrine: dry skin, polydypsia, temp intolerance, weight change, No no complaints, No other, No polyuria Lymphatic: No adenopathy, No lymphadema, No no complaints, No other, No tender nodes Psychological: anxiety, confusion, depression Immunologic: pruritis, No immunodeficiency, No no complaints, No other, No rhinitis, No urticaria PMH/Family/Social Past Medical History Medical History: angina, colitis, congestive heart failure, coronary artery disease, diabetes (now with normal bs.), diverticulitis, gallstones, GERD, GI bleed, high cholesterol, hypertension, hypothyroid, pancreatitis, peptic ulcer disease, renal disease, urinary tract infection Past Surgical History Past Surgical Hx: angioplasty, coronary bypass surgery, endoscopy, other Family History Significant Family History: heart disease, COPD, diabetes Social History Alcohol Use: rarely Smoking Status: Former smoker Drug Use: none Exam/Review of Systems Vital Signs Vitals Vital Signs Date Time Temp Pulse Resp B/P Pulse Ox O2 Delivery O2 Flow Rate FiO2 08/11/16 14:47 3.0 08/11/16 14:33 96 08/11/16 13:03 18 207/86 Nasal Cannula 08/11/16 08:57 98.9 98 Exam Constitutional: alert, distress, oriented (disoriented.), well developed Psych: anxiety, confusion, depression, No nl mood/affect, No no complaints, No other, No suicidal Head: atraumatic, No hematomas, No lacerations, No normocephalic, No other Eyes: EOMI, PERRL (s/p caaractectomy.), nl lids, No fundi, disc, No icteric, No nl conjunctiva, No nl sclera, No other ENMT: nl lips & teeth (dentures.), nl nasal mucosa & septum, tympanic membranes , No intubated, No mucosa pink and moist, No nl external ears & nose, No other Neck: bruits, jvd, nuchal rigidity, No masses, No non-tender, No other, No supple, No thyromegaly Respiratory: congested cough, crackles/rales, diminished breath sounds, intercostal retraction, labored breathing, wheezing, No clear to auscultation, No normal air movement, No other, No respirations, No tactile fremitus Cardiovascular: bruits, edema, irregular rhythm, murmurs/extra sounds, systolic murmur, No S3, No S4, No diastolic murmur, No gallop, No jugular venous distention ( JVD), No nl pulses, No other, No regular rate and rhythm, No rub Gastrointestinal: bowel sounds, distended, hepatomegaly, soft, No ascites, No firm, No mass, No nl liver, spleen, No non-tender, No other, No rebound or guarding, No splenomegaly, No surgical scars, No tender Genitourinary - Male: No CVA tenderness, No discharge, No nl penis, No nl scrotum, No other Musculoskeletal: joint tenderness, muscle tone (severly weak.), muscle weakness, range of motion, No nl extremities to inspection, No nl gait and stance, No other, No spine non-tender, No swelling Extremities: calf tenderness Neurological: CARE AIDE II-XII intact (hearing impairment.), confused, lethargic, numbness Skin: diaphoresis, ecchymosis, rash or lesions, No laceration, No nl turgor, No other, No puncture Lymph: No enlarged, No nl lymph nodes, No nontender, No other Labs Result Diagram: 08/11/16 0950 08/11/16 0950 Medications Medications Current Medications Acetaminophen (Tylenol Tab) 650 mg Q6H PRN PO PAIN AND OR ELEVATED TEMP; Start 08/11/16 at 10:30 Carvedilol (Coreg) 12.5 mg BID PO ; Start 08/11/16 at 21:00 Clonidine (Catapres) 0.1 mg TID PO ; Start 08/11/16 at 13:00 Docusate Sodium (Colace) 100 mg Q12 PO ; Start 08/11/16 at 21:00 Minoxidil (Loniten) 5 mg BID PO ; Start 08/11/16 at 21:00 Multivit/Ca Carb/ B Cmplx/FA/Prenat (Katlyn-Michael) 1 tab DAILY PO ; Start 08/12/16 at 09:00 Nifedipine (Procardia Xl) 30 mg BID PO ; Start 08/11/16 at 21:00 Pantoprazole (Protonix Tab) 40 mg DAILY@06 PO ; Start 08/12/16 at 06:00 Salmeterol Xinafoate/ Fluticasone (Advair 500/50 Diskus) 1 inh BID INH ; Start 08/11/16 at 21:00 Senna (Senokot) 1 tab DAILY PRN PO CONSTIPATION; Start 08/11/16 at 10:30 Tamsulosin HCl (Flomax) 0.4 mg HS PO ; Start 08/11/16 at 21:00 Tiotropium [place] (Spiriva) 1 inh BID INH ; Start 08/11/16 at 21:00 Ondansetron HCl (Zofran Inj) 4 mg Q4H PRN IV NAUSEA AND/OR VOMITING; Start 08/11 at 10:30 Acetaminophen/ Hydrocodone Bitart (Mckenna (5/325)) 1 tab Q6H PRN PO MODERATE PAIN LEVEL 4-6; Start 08/11/16 at 10:30 Morphine Sulfate (morphine) 1 mg Q4H PRN IV SEVERE PAIN LEVEL 7-10; Start at 10:30 Docusate Sodium (Colace) 100 mg Q12H PRN PO CONSTIPATION; Start 08/11/16 at 10: 30 Zolpidem Tartrate (Ambien) 5 mg QHS PRN PO SLEEP; Start 08/11/16 at 10:30 Heparin Sodium (Porcine) (Heparin (5000 Units/0.5 ml)) 5,000 unit Q12 SC ; Start 08/11/16 at 21:00 Lactulose (Enulose) 30 gm Q2 PO ; Start 08/11/16 at 17:00; Status UNV HINA CASTILLO MD August 11, 2016 15:18
[2016-08-11] MEDS: ALBUTEROL/IPRATROPIUM (NEB) 3 ML AMP HHN SCH ×2 (15:20→20:49)
[2016-08-11] MEDS ORDERED: CLONIDINE 0.2 MG/24 HR PATCH TRANSDERM SCH (16:00)
[2016-08-11] MEDS: PANTOPRAZOLE 40 MG INJ IVPB SCH (16:00)
[2016-08-11] MEDS: LACTULOSE 30ML CUP PO SCH ×4 (17:00→23:00)
[2016-08-11 17:20] LABS: AADO2 Arterial 203.4 mmHg (7.0-24.0); Allen Test ACCEPTAB; Arterial Base Excess -3.5 mmol/L (-3.0-3); Arterial COHb 0.2 % (0.0-3.0); Arterial Fraction of Oxyhgb 98.8 % (93.0-99.0); Arterial HCO3 23.9 mmol/L (22.0-26.0); Arterial MetHb 0.6 % (0.0-1.5); Arterial Total Hemglobin 17.7 g/dl (12.0-18.0); MODE MASK - NRB
[2016-08-11 17:38] LABS: ADD SCAN DIFF NO
--- NOTE | 2016-08-11 17:51 | CONS ---
Date/Time of Note Date/Time of Note DATE: 08/11/16 TIME: 17:50 Assessment/Plan Assessment/Plan Chief Complaint/Hosp Course Anemia - CHRONIC, MULTIFACTORIAL, severe HX ANEMIA WITH +COMPONENT ACD AND IRON DEFICIENCY TRANSFUSE PRBC MONITOR BLOOD COUNT CLOSELY OBSERVE FOR BLEEDING AND HEMOLYSIS TRANSFUSE NEEDED EPO WITH HD GI EVAL post EGD .07.27- Mild reflux esophagitis. Antral gastritis. Fundal nodular gastritis. End-stage renal disease, hemodialysis dependent. Right chest Perm-A-Cath. Chronic obstructive pulmonary disease exacerbation. CHF, mild Interstitial and COPD, rx with daily steroids (po) POST RECENT Acute respiratory failure RECENT Pneumonia Problems: Consultation Date/Type/Reason Admit Date/Time 08/11/16 Date of Consultation: August 11, 2016 Type of Consultation: 08.11.16 Reason for Consultation anemia Referring Provider: HINA CASTILLO MD Hx of Present Illness As you know, the patient is a 81-year-old [place] gentleman apparently went to [facility] yesterday and he was having shortness of breath and subsequently he was admitted to [facility]. A hemeonc consultation is requested because of hemoglobin being 4.6; however, according to the nursing staff, there is no evidence of history of any vomiting blood or history of passing blood from the rectum. He is known to have multiple other medical problems. The patient has chronic renal insufficiency, COPD and from a chronic kidney disease standpoint, he underwent hemodialysis today. He has diabetes, anxiety, osteoarthritis. Weight loss of 60 pounds recently, hypertension and benign prostatic hypertrophy and history of constipation. PAST MEDICAL HISTORY: Angioplasty, coronary bypass surgery and endoscopy in the past. MEDICATIONS: Prior to the admission includes: 1. Acetaminophen. 2. Coreg. 3. Catapres. 4. Colace. 5. Loniten. 6. Katlyn-Michael 7. Procardia. 8. Protonix. 9. Advair. 10. Senokot. 11. Flomax. 12. Spiriva, 13. Zofran. 14. [place]. 15. Lactulose. 16. Zosyn. REVIEW OF SYSTEM: Essentially as mentioned above. The medications currently is also as I mentioned above. Past Surgical History Past Surgical Hx: angioplasty, coronary bypass surgery, endoscopy, other Social History Smoking Status: Former smoker Exam/Review of Systems Vital Signs Vitals Vital Signs Date Time Temp Pulse Resp B/P Pulse Ox O2 Delivery O2 Flow Rate FiO2 08/11/16 17:00 100 35 08/11/16 14:47 3.0 08/11/16 13:03 207/86 Nasal Cannula 08/11/16 08:57 98.9 98 Exam PHYSICAL EXAMINATION: GENERAL: The patient is a 81-year-old [place] gentleman who at this time is on BiPAP. He is alert, obviously is having significant dyspnea. CARDIOVASCULAR: Normal heart sounds. RESPIRATORY: Normal breath sounds. ABDOMEN: Showed a soft abdomen with no palpable masses, no tenderness, no distention. Results Result Diagram: 08/11/16 0950 08/11/16 0950 Results 24 hrs Laboratory Tests Test 08/11/16 09:50 08/11/16 10:30 08/11/16 13:15 08/11/16 17:06 White Blood Count 5.8 Red Blood Count 1.49 #L Hemoglobin 4.6 #*L Hematocrit 14.4 #L Mean Corpuscular Volume 96.6 Mean Corpuscular Hemoglobin 30.9 Mean Corpuscular Hemoglobin Concent 31.9 L Red Cell Distribution Width 15.3 H Platelet Count 90 #L Mean Platelet Volume 8.3 Neutrophils % 72.6 Lymphocytes % 14.9 L Monocytes % 7.4 Eosinophils % 4.2 Basophils % 0.2 Nucleated Red Blood Cells % 0.0 Neutrophils # 4.2 Lymphocytes # 0.9 Monocytes # 0.4 Eosinophils # 0.2 Basophils # 0.0 Nucleated Red Blood Cells # 0.0 Prothrombin Time 19.2 #H Prothrombin Time Ratio 1.5 INR International Normalized Ratio 1.60 Activated Partial Thromboplast Time 43.1 H Sodium Level 138 Potassium Level 2.7 *L Chloride Level 110 Carbon Dioxide Level 11 L Anion Gap 20 H Blood Urea Nitrogen 64 H Creatinine 7.48 H Glucose Level 57 L Calcium Level 5.8 *L Troponin I 0.038 Absolute Reticulocyte Count 0.018 L Percent Reticulocyte Count 1.2 Iron Level 36 Total Iron Binding Capacity 151 L Percent Iron Saturation 24 Ferritin 645.0 H Lactate Dehydrogenase 381 Blood Gas Specimen Source Blood arterial Blood arterial Arterial Blood Date Drawn 08/11/2016 1:38:31 PM 08/11/2016 5:11:02 PM Arterial Blood pH (Temp corrected) 7.319 L 7.289 *L Arterial Blood pCO2 (Temp correct) 42.4 50.9 H Arterial Blood pO2 (Temp corrected) 112.0 H 458.7 H Arterial Blood HCO3 21.3 L 23.9 Arterial Blood Base Excess -4.6 L -3.5 L Arterial Blood Oxygen Saturation 97.5 99.6 Nikita Test ACCEPTAB ACCEPTAB Arterial Blood Gas Puncture Site Right Radial Right Brachial Arterial Blood Carboxyhemoglobin 0.4 0.2 Arterial Blood Methemoglobin 0.4 0.6 Blood Gas A-a O2 Differential 52.1 H 203.4 H Oxyhemoglobin Percent 96.7 98.8 Total Hemoglobin 12.0 17.7 Blood Gas Temperature 37.0 37.0 Blood Gas Modality NASAL CANNULA MASK - NRB FiO2 30.0 100.0 Blood Gas Notified Whom Bridger LISA Blood Gas Notified Time 08/11/2016 1:46:05 PM 08/11/2016 5:17:48 PM Blood Gas Critical Value Read Back Rula OSCAR RN Medications Medications Current Medications Acetaminophen (Tylenol Tab) 650 mg Q6H PRN PO PAIN AND OR ELEVATED TEMP; Start 08/11/16 at 10:30 Carvedilol (Coreg) 12.5 mg BID PO ; Start 08/11/16 at 21:00 Docusate Sodium (Colace) 100 mg Q12 PO ; Start 08/11/16 at 21:00 Minoxidil (Loniten) 5 mg BID PO ; Start 08/11/16 at 21:00 Multivit/Ca Carb/ B Cmplx/FA/Prenat (Katlyn-Michael) 1 tab DAILY PO ; Start 08/12/16 at 09:00 Nifedipine (Procardia Xl) 30 mg BID PO ; Start 08/11/16 at 21:00 Salmeterol Xinafoate/ Fluticasone (Advair 500/50 Diskus) 1 inh BID INH ; Start 08/11/16 at 21:00 Senna (Senokot) 1 tab DAILY PRN PO CONSTIPATION; Start 08/11/16 at 10:30 Tamsulosin HCl (Flomax) 0.4 mg HS PO ; Start 08/11/16 at 21:00 Tiotropium [place] (Spiriva) 1 inh BID INH ; Start 08/11/16 at 21:00 Ondansetron HCl (Zofran Inj) 4 mg Q4H PRN IV NAUSEA AND/OR VOMITING; Start 08/11 at 10:30 Acetaminophen/ Hydrocodone Bitart ([place] (5/325)) 1 tab Q6H PRN PO MODERATE PAIN LEVEL 4-6; Start 08/11/16 at 10:30 Morphine Sulfate (morphine) 1 mg Q4H PRN IV SEVERE PAIN LEVEL 7-10; Start at 10:30 Docusate Sodium (Colace) 100 mg Q12H PRN PO CONSTIPATION; Start 08/11/16 at 10: 30 Zolpidem Tartrate (Ambien) 5 mg QHS PRN PO SLEEP; Start 08/11/16 at 10:30 Heparin Sodium (Porcine) (Heparin (5000 Units/0.5 ml)) 5,000 unit Q12 SC ; Start 08/11/16 at 21:00 Lactulose (Enulose) 30 gm Q2 PO ; Start 08/11/16 at 17:00 Pantoprazole (Protonix Iv) 40 mg DAILY@06 IVPB Last administered on 08/11/16 16 :00; Admin Dose 40 MG; Start 08/11/16 at 16:00 Clonidine HCl (Catapres-Tts 2 Patch) 1 patch Q7D TRANSDERM Last administered on 08/11/16 16:00; Admin Dose 1 PATCH; Start 08/11/16 at 16:00 ANDRE SMITH MD August 11, 2016 17:51
[2016-08-11 18:23] LABS: BASOPHIL # 0.1 10^3/ul (0.0-0.1); BASOPHILS % 0.3 % (0.0-2.0); EOSINOPHILS # 0.3 10^3/ul (0.0-0.5); EOSINOPHILS % 2.2 % (0.0-7.0); HEMATOCRIT 48.6 % (42.0-52.0); HEMOGLOBIN 16.5 g/dl (14.0-18.0); LYMPHOCYTES # 0.8 10^3/ul (0.8-2.9); LYMPHOCYTES % 5.5 % (15.0-51.0); MEAN CORPUSCULAR HEMOGLOBIN 29.6 pg (29.0-33.0); MEAN CORPUSCULAR VOLUME 87.3 fl (82.0-101.0); MEAN PLATELET VOLUME 8.9 fl (7.4-10.4); MONOCYTES % 6.4 % (0.0-11.0); NEUTROPHIL # 12.7 10^3/ul (1.6-7.5); NEUTROPHILS % 84.3 % (39.0-77.0); PLATELET COUNT 206 10^3/UL (140-415); RED BLOOD COUNT 5.57 10^6/ul (4.70-6.10); RED CELL DISTRIBUTION WIDTH 15.9 % (11.5-14.5); WHITE BLOOD COUNT 15.1 10^3/ul (4.8-10.8)
[2016-08-11 18:47] LABS: CALCIUM 9.6 mg/dl (8.4-10.2); CREATININE 7.17 mg/dl (0.61-1.24); POTASSIUM 5.1 mmol/L (3.5-5.1)
[2016-08-11 18:57] LABS: TROPONIN-I 0.057 ng/ml (0.00-0.12)
--- NOTE | 2016-08-11 18:57 | RADRPT ---
PROCEDURE: XR Abdomen. CLINICAL INDICATION: Abdominal distension. TECHNIQUE: Supine AP views of the abdomen. COMPARISON: None. FINDINGS: Gas and stool are seen within nondilated large bowel. There are no dilated loops of small bowel to suggest a bowel obstruction. No abnormal calcifications are identified. IMPRESSION: 1. Nonobstructive bowel gas pattern. RPTAT: HTAR .Arvind Charlton MD, MD Date Time Electronically viewed and signed by .Arvind Charlton MD, on 08/11/2016 18:57 .R/
--- NOTE | 2016-08-11 18:58 | RADRPT ---
PROCEDURE: Portable chest x-ray. CLINICAL INDICATION: Fluid overload. TECHNIQUE: Portable AP view of the chest. COMPARISON: 06/02/2016. FINDINGS: A right central venous catheters been removed. There is vascular congestion and interstitial edema, not significantly changed. The cardiac silhouette is magnified. There are small bilateral pleural effusions. There is no pneumothorax. IMPRESSION: 1. Vascular congestion and interstitial edema, not significantly changed since 06/02/2016. 2. Small bilateral pleural effusions. 3. Aortic atherosclerosis. RPTAT: HTAR .Arvind Charlton MD, MD Date Time Electronically viewed and signed by .Arvind Charlton MD, MD on 08/11/2016 18:58 .R/
[2016-08-11] MEDS ORDERED: BARIUM SULF 2% 450 ML BTL (BERRY SMOOTHIE) PO ONE (19:00)
--- NOTE | 2016-08-11 19:09 | CONS ---
DATE OF ADMISSION: 08/11/2016 DATE OF CONSULTATION: 08/11/2016 TYPE OF CONSULTATION: Gastroenterology. Dear Dr. Kash Dawn and Dr. Mcallister: Thank you for asking me to see Mr. Kim in GI consultation. HISTORY OF PRESENT ILLNESS: As you know, the patient is a 81-year-old Greek gentleman apparently went to [facility] yesterday and he was having shortness of breath and subsequently he was adm itted to [facility]. A GI consultation is requested because of hemoglobin being 4 .6; however, according to the nursing staff, there is no evidence of history of any vomiting blood o r history of passing blood from the rectum. He is known to have multiple other medical problems. Please see review Dr. Mcallister's note. The patient has chronic renal insufficiency, COPD and from a chronic kidney disease standpoint, he underwent hemodialysis today. He has diabetes, anxiety, os teoarthritis. Weight loss of 60 pounds recently, hypertension and benign prostatic hypertrophy and history of constipation. PAST MEDICAL HISTORY: Angioplasty, coronary bypass surgery and endoscopy in the past. MEDICATIONS: Prior to the admission includes: 1. Acetaminophen. 2. Coreg. 3. Catapres. 4. Colace. 5. Loniten. 6. Katlyn-Michael 7. Procardia. 8. Protonix. 9. Advair. 10. Senokot. 11. Flomax. 12. Spiriva, 13. Zofran. 14. [place]. 15. Lactulose. 16. Zosyn. REVIEW OF SYSTEM: Essentially as mentioned above. The medications currently is also as I mentioned above. PHYSICAL EXAMINATION: GENERAL: The patient is a 81-year-old Greek gentleman who at this time is on BiPAP. He is alert , obviously is having significant dyspnea. VITAL SIGNS: Pulse is 100, respirations 35, blood pressure 200/86 earlier. CARDIOVASCULAR: Normal heart sounds. RESPIRATORY: Normal breath sounds. ABDOMEN: Showed a soft abdomen with no palpable masses, no tenderness, no distention. LABORATORY WORKUP: Hemoglobin is 4.6, hematocrit 14.4, WBC is 5800, platelet count 90,000. Coagula tion: INR is 1.6. Potassium 2.7, BUN 64, creatinine 7.48, glucose 57, calcium 5.8, iron is 36, courtney ritin is 645, CO2 is 11. The imaging studies shows a chest x-ray, prominent interstitial markings bilaterally. CLINICAL IMPRESSION: From the gastroenterology standpoint, he has severe anemia, but no active rom rointestinal bleeding is noted at this time anemia. Anemia, certainly could be anemia of chronic di sease due to chronic kidney disease. Gastrointestinal causes including peptic ulcer disease, arteri ovenous malformation of the GI tract, colorectal neoplasm, all need to be ruled out. Currently, he is not actively bleeding. He is post-dialysis on a BiPAP. He will definitely need upper endoscopy, lower endoscopy once the patient is stable. Meanwhile, continue Protonix. Hold anticoagulants if p ossible. Once again, doctor, thank you for this consultation. Dictated By: HAMZAH LEMA MD NC/NTS Conf#: [id number] DID#: [id number] CC: HINA MCALLISTER MD;*EndCC*
[2016-08-11 19:24] LABS: CK-MB 2.65 ng/ml (0.0-2.4)
--- NOTE | 2016-08-11 19:30 | RADRPT ---
PROCEDURE: Complete abdominal ultrasound. CLINICAL INDICATION: Abdominal pain TECHNIQUE: Weaver scale and color doppler ultrasound images of the abdomen. COMPARISON: CT abdomen pelvis 04/09/2016 FINDINGS: Pancreas: Visualized portions appear of normal echogenicity, no focal lesions. Liver: Morphology: Mildly enlarged measuring 17.6 cm. No evidence of contour nodularity. Echogenicity: Normal. Focal lesions: None. Main portal vein: Patent with hepatopetal flow. Biliary System: Normal appearing gallbladder wall. Sludge is present within the gallbladder without evidence of shadowing gallstones. No intrahepatic biliary dilatation. Common bile duct diameter: 4.7 mm Kidneys: Right length: 11.7 cm. Right renal cortical thickness is preserved. Left length: 11.0 cm. Left renal cortical thickness is preserved. Both kidneys are of increased echogenicity. No hydronephrosis. No renal calculi. Benign-appearing cyst of the right kidney measuring 3.5 cm. A few benign-appearing cysts also prese nt in the left kidney measuring up to 3.7 cm. Spleen: Mildly enlarged measuring 14.6 cm. No free fluid identified. Normal caliber of the partially visualized aorta. IMPRESSION: Normal appearance of the gallbladder wall, no sonographic evidence of cholecystitis. Previously seen small gallstones are not evident on the current examination. Normal caliber intrahe patic and extrahepatic biliary system. Bilateral echogenic kidneys without hydronephrosis suggestive of medical renal disease. Liver and spleen are again mildly enlarged. RPTAT: AADD .Marcos Perdomo MD, Date Time Electronically viewed and signed by .Marcos Perdomo MD, MD on 08/11/2016 19:30 .B/
[2016-08-11] MEDS: SALMETEROL/FLUTICASONE 500/50 INHA INH SCH (20:51)
[2016-08-11] MEDS: TIOTROPIUM 18 MCG CAPSULE INHA DEV INH SCH (20:51)
[2016-08-11 20:52] LABS: AADO2 Arterial 105.1 mmHg (7.0-24.0); Allen Test ACCEPTAB; Arterial COHb 0.9 % (0.0-3.0); Arterial Fraction of Oxyhgb 97.4 % (93.0-99.0); Arterial MetHb 0.4 % (0.0-1.5); Arterial Total Hemglobin 16.2 g/dl (12.0-18.0); Blood Gas IEPAP 18/8; Blood Gas PS 10; MODE BIPAP - S/T
[2016-08-11] MEDS: NIFEdipine (XL) 30 MG TAB PO SCH (20:52)
[2016-08-11] MEDS: HEPARIN 5,000 UNIT/0.5 ML VIAL SC SCH (20:54)
[2016-08-11] MEDS: MINOXIDIL 2.5 MG TAB PO SCH (21:00)
[2016-08-11] MEDS: TAMSULOSIN (SR) 0.4 MG CAP PO SCH (21:00)
[2016-08-11] MEDS: DESMOPRESSIN 20 MCG in SOD CHLORIDE 0.9% 50 ML IVPB SCH (21:00)
[2016-08-11] MEDS: DOCUSATE SODIUM 100 MG CAP PO SCH (21:00)
[2016-08-11 21:30] LABS: TROPONIN-I 0.052 ng/ml (0.00-0.12)
[2016-08-11 21:31] LABS: CK-MB 2.31 ng/ml (0.0-2.4)
[2016-08-12] VITALS (45 sets, daily range): BP systolic 72–148; BP diastolic 41–118; PULSE 66–94; RESP 16–25
[2016-08-12] MEDS: LACTULOSE 30ML CUP PO SCH ×6 (01:00→23:12)
[2016-08-12] MEDS: ALBUTEROL/IPRATROPIUM (NEB) 3 ML AMP HHN SCH ×4 (01:54→20:05)
--- NOTE | 2016-08-12 05:20 | CONS ---
DATE OF ADMISSION: 08/11/2016 DATE OF CONSULTATION: 08/11/2016 TYPE OF CONSULTATION: Nephrology Thank you very much for allowing me to evaluate this 80-year-old male admitted with shortness of janett ath and severe anemia. HISTORICAL EVENTS: As you well know, this patient does undergo outpatient dialysis 3 times per week , and was admitted here with increasing shortness of breath over the last several days, having had only a short dialysis run on Wednesday. Per the Emergency Room, there have been no symptoms of gastr ointestinal bleeding. It is uncertain whether he has had some chest pain in the last 2 days. PAST MEDICAL HISTORY: Includes: 1. Chronic obstructive pulmonary disease with known interstitial lung disease. 2. History of diabetes. 3. 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 4. History of depression. 5. Benign prostatic hypertrophy. 6. Osteoporosis. 7. Antecedent anemia noted secondary to renal insufficiency. 8. Hypertension. 9. Known coronary artery disease having had 3 stents placed circa 10 months ago. 10. Recurrent urinary tract infections. PRESENT MEDICATIONS: Include: 1. Albuterol inhaler. 2. Prednisone 15 mg per day. 3. Valsartan 160 mg per day. 4. Insulin coverage sliding scale. PHYSICAL EXAMINATION: GENERAL: Acute and chronically ill male, tachypneic. VITAL SIGNS: BP 195/92, respirations were 24. He was afebrile. EYES: Extraocular muscles were full. NECK: No JVD. LUNGS: Bibasilar rales, slight wheezing. HEART: Rhythm regular, I/ systolic murmur. No third or fourth sound. ABDOMEN: Nontender. Liver and spleen were not palpable. No masses or tenderness were noted. EXTREMITIES: No edema. LABORATORY AND DIAGNOSTIC STUDIES: Hematocrit 14.4, white count 5800, platelet count 90,000. Chemi stry: Sodium 138, potassium 2.7, chloride 110, CO2 11, BUN 64, creatinine 7.48, calcium 5.8. Proti me and PTT were normal. IMPRESSION: 1. Known coronary artery disease without congestive heart failure. 2. Severe anemia. Gastrointestinal bleeding seemed likely. 3. 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 PLAN: Rapid dialysis today with 4K bath transfused 4 units of packed cells with aggressive ultrafil tration on dialysis. Await stool for OB. Will follow with you. Dictated By: TRUE RANDALL/CAMILO Conf#: [id number] DID#: [id number]
[2016-08-12] MEDS: PANTOPRAZOLE 40 MG INJ IVPB SCH (05:39)
[2016-08-12 05:49] LABS: ADD SCAN DIFF NO
[2016-08-12] MEDS ORDERED: PANTOPRAZOLE (EC) 40 MG TAB PO SCH (06:00)
[2016-08-12 06:07] LABS: INR 1.17; PT RATIO 1.2
[2016-08-12 06:08] LABS: PARTIAL THROMBOPLASTIN TIME 32.1 Sec (25.0-35.0)
[2016-08-12 06:24] LABS: BASOPHIL # 0.1 10^3/ul (0.0-0.1); BASOPHILS % 0.4 % (0.0-2.0); EOSINOPHILS # 0.4 10^3/ul (0.0-0.5); EOSINOPHILS % 2.7 % (0.0-7.0); HEMATOCRIT 43.6 % (42.0-52.0); HEMOGLOBIN 14.6 g/dl (14.0-18.0); LYMPHOCYTES % 14.7 % (15.0-51.0); MEAN CORPUSCULAR HEMOGLOBIN 29.4 pg (29.0-33.0); MEAN CORPUSCULAR HGB CONC 33.5 g/dl (32.0-37.0); MEAN CORPUSCULAR VOLUME 87.7 fl (82.0-101.0); MEAN PLATELET VOLUME 9.1 fl (7.4-10.4); MONOCYTE # 1.1 10^3/ul (0.3-0.9); NEUTROPHIL # 9.8 10^3/ul (1.6-7.5); NEUTROPHILS % 72.9 % (39.0-77.0); PLATELET COUNT 203 10^3/UL (140-415); RED BLOOD COUNT 4.97 10^6/ul (4.70-6.10); RED CELL DISTRIBUTION WIDTH 16.7 % (11.5-14.5); WHITE BLOOD COUNT 13.4 10^3/ul (4.8-10.8)
[2016-08-12 06:28] LABS: ALBUMIN 3.8 g/dl (3.3-4.9); ALBUMIN/GLOBULIN RATIO 1.02; BILIRUBIN,INDIRECT 0.4 mg/dl (0-1.1); BILIRUBIN,TOTAL 0.4 mg/dl (0.2-1.3); CALCIUM 9.6 mg/dl (8.4-10.2); CREATININE 8.71 mg/dl (0.61-1.24); POTASSIUM 5.7 mmol/L (3.5-5.1); TOTAL PROTEIN 7.5 g/dl (6.1-8.1)
[2016-08-12 06:57] LABS: THYROID STIMULATING HORMONE 0.677 MIU/L (0.465-4.680)
--- NOTE | 2016-08-12 07:10 | CONS ---
Date/Time of Note Date/Time of Note DATE: 08/12/16 TIME: 07:06 Assessment/Plan Assessment/Plan Additional Assessment/Plan 1. Hct now nl after 4 units, this suggests Hct on admit was a lab error, no evid gross gi bleeding, stool ob pending. 2. Residual CHF, will hd today 3. Elev K, will resolve with HD 4. BP now controlled. 5. 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 6. Known CAD, asx Consultation Date/Type/Reason Admit Date/Time August 11, 2016 at 14:20 Initial Consult Date Detailed Summary Respiratory: shortness of breath (mild) Cardiovascular: No chest pain Genitourinary: no complaints Exam/Review of Systems Vital Signs Vitals Vital Signs Date Time Temp Pulse Resp B/P Pulse Ox O2 Delivery O2 Flow Rate FiO2 08/12/16 06:14 96 3.0 32 08/12/16 06:00 76 16 144/65 BIPAP 08/12/16 04:00 98.0 Intake and Output 08/11/16 08/11/16 08/12/16 15:00 23:00 07:00 Intake Total 1000 ml 0 ml Output Total 5050 ml 50 ml Balance -4050 ml -50 ml Exam Neck: No jvd Respiratory: diminished breath sounds, other (rales bilat) Cardiovascular: regular rate and rhythm Gastrointestinal: soft Extremities: No edema Results Result Diagram: 08/12/16 0015 08/12/16 0520 Results 24 hrs Laboratory Tests Test 08/11/16 09:50 08/11/16 10:30 08/11/16 13:15 08/11/16 17:06 White Blood Count 5.8 Red Blood Count 1.49 #L Hemoglobin 4.6 #*L Hematocrit 14.4 #L Mean Corpuscular Volume 96.6 Mean Corpuscular Hemoglobin 30.9 Mean Corpuscular Hemoglobin Concent 31.9 L Red Cell Distribution Width 15.3 H Platelet Count 90 #L Mean Platelet Volume 8.3 Neutrophils % 72.6 Lymphocytes % 14.9 L Monocytes % 7.4 Eosinophils % 4.2 Basophils % 0.2 Nucleated Red Blood Cells % 0.0 Neutrophils # 4.2 Lymphocytes # 0.9 Monocytes # 0.4 Eosinophils # 0.2 Basophils # 0.0 Nucleated Red Blood Cells # 0.0 Prothrombin Time 19.2 #H Prothrombin Time Ratio 1.5 INR International Normalized Ratio 1.60 Activated Partial Thromboplast Time 43.1 H Sodium Level 138 Potassium Level 2.7 *L Chloride Level 110 Carbon Dioxide Level 11 L Anion Gap 20 H Blood Urea Nitrogen 64 H Creatinine 7.48 H Glucose Level 57 L Calcium Level 5.8 *L Troponin I 0.038 Absolute Reticulocyte Count 0.018 L Percent Reticulocyte Count 1.2 Iron Level 36 Total Iron Binding Capacity 151 L Percent Iron Saturation 24 Ferritin 645.0 H Lactate Dehydrogenase 381 Blood Gas Specimen Source Blood arterial Blood arterial Arterial Blood Date Drawn 08/11/2016 1:38:31 PM 08/11/2016 5:11:02 PM Arterial Blood pH (Temp corrected) 7.319 L 7.289 *L Arterial Blood pCO2 (Temp correct) 42.4 50.9 H Arterial Blood pO2 (Temp corrected) 112.0 H 458.7 H Arterial Blood HCO3 21.3 L 23.9 Arterial Blood Base Excess -4.6 L -3.5 L Arterial Blood Oxygen Saturation 97.5 99.6 Nikita Test ACCEPTAB ACCEPTAB Arterial Blood Gas Puncture Site Right Radial Right Brachial Arterial Blood Carboxyhemoglobin 0.4 0.2 Arterial Blood Methemoglobin 0.4 0.6 Blood Gas A-a O2 Differential 52.1 H 203.4 H Oxyhemoglobin Percent 96.7 98.8 Total Hemoglobin 12.0 17.7 Blood Gas Temperature 37.0 37.0 Blood Gas Modality NASAL CANNULA MASK - NRB FiO2 30.0 100.0 Blood Gas Notified Whom Bridger LISA Blood Gas Notified Time 08/11/2016 1:46:05 PM 08/11/2016 5:17:48 PM Blood Gas Critical Value Read Back Rula OSCAR RN Test 08/11/16 17:30 08/11/16 20:00 08/11/16 20:56 08/12/16 00:15 White Blood Count 15.1 #H Red Blood Count 5.57 # Hemoglobin 16.5 # 14.0 Hematocrit 48.6 # 42.0 Mean Corpuscular Volume 87.3 Mean Corpuscular Hemoglobin 29.6 Mean Corpuscular Hemoglobin Concent 34.0 Red Cell Distribution Width 15.9 H Platelet Count 206 # Mean Platelet Volume 8.9 Neutrophils % 84.3 H Lymphocytes % 5.5 L Monocytes % 6.4 Eosinophils % 2.2 Basophils % 0.3 Nucleated Red Blood Cells % 0.0 Neutrophils # 12.7 H Lymphocytes # 0.8 Monocytes # 1.0 H Eosinophils # 0.3 Basophils # 0.1 Nucleated Red Blood Cells # 0.0 Sodium Level 135 Potassium Level 5.1 # Chloride Level 96 #L Carbon Dioxide Level 24 # Anion Gap 20 H Blood Urea Nitrogen 57 H Creatinine 7.17 H Glucose Level 94 Calcium Level 9.6 Phosphorus Level 4.3 Creatine Kinase 41 34 Creatine Kinase Index 6.5 6.8 Creatinine Kinase MB (Mass) 2.65 H 2.31 Troponin I 0.057 0.052 Blood Gas Specimen Source Blood arterial Arterial Blood Date Drawn 08/11/2016 8:35:01 PM Arterial Blood pH (Temp corrected) 7.408 Arterial Blood pCO2 (Temp correct) 35.7 Arterial Blood pO2 (Temp corrected) 139.0 H Arterial Blood HCO3 22.0 Arterial Blood Base Excess -2.0 Arterial Blood Oxygen Saturation 98.7 Nikita Test ACCEPTAB Arterial Blood Gas Puncture Site Right Radial Arterial Blood Carboxyhemoglobin 0.9 Arterial Blood Methemoglobin 0.4 Blood Gas A-a O2 Differential 105.1 H Oxyhemoglobin Percent 97.4 Total Hemoglobin 16.2 Blood Gas Temperature 37.0 Blood Gas Respiration Rate 20.0 Blood Gas Actual Respiration Rate 26 Blood Gas Modality BIPAP - S/T FiO2 40.0 Blood Gas Pressure Support 10 Blood Gas IPAP/EPAP Ratio 18/8 Blood Gas Notified Whom RTR Blood Gas Notified Time 08/11/2016 8:52:22 PM Test 08/12/16 05:20 08/12/16 05:47 Prothrombin Time Pending Prothrombin Time Ratio 1.2 INR International Normalized Ratio 1.17 Activated Partial Thromboplast Time 32.1 Sodium Level 135 Potassium Level 5.7 H Chloride Level 99 Carbon Dioxide Level 23 Anion Gap 19 H Blood Urea Nitrogen 70 H Creatinine 8.71 H Glucose Level 92 Hemoglobin A1c 4.8 Calcium Level 9.6 Magnesium Level 2.1 Total Bilirubin 0.4 Direct Bilirubin 0.00 Indirect Bilirubin 0.4 Aspartate Amino Transf (AST/SGOT) 13 L Alanine Aminotransferase (ALT/SGPT) 23 Alkaline Phosphatase 76 Ammonia < 9 L Total Protein 7.5 Albumin 3.8 Globulin 3.70 H Albumin/Globulin Ratio 1.02 Thyroid Stimulating Hormone (TSH) 0.677 Lab Scanned Report BLOOD TRANSFUSION Medications Medications Current Medications Acetaminophen (Tylenol Tab) 650 mg Q6H PRN PO PAIN AND OR ELEVATED TEMP; Start 08/11/16 at 10:30 Carvedilol (Coreg) 12.5 mg BID PO Last administered on 08/11/16 20:52; Admin Dose 12.5 MG; Start 08/11/16 at 21:00 Docusate Sodium (Colace) 100 mg Q12 PO ; Start 08/11/16 at 21:00 Minoxidil (Loniten) 5 mg BID PO ; Start 08/11/16 at 21:00 Multivit/Ca Carb/ B Cmplx/FA/Prenat (Katlyn-Michael) 1 tab DAILY PO ; Start 08/12/16 at 09:00 Nifedipine (Procardia Xl) 30 mg BID PO Last administered on 08/11/16 20:52; Admin Dose 30 MG; Start 08/11/16 at 21:00 Salmeterol Xinafoate/ Fluticasone (Advair 500/50 Diskus) 1 inh BID INH Last administered on 08/11/16 20:51; Admin Dose 1 INH; Start 08/11/16 at 21:00 Senna (Senokot) 1 tab DAILY PRN PO CONSTIPATION; Start 08/11/16 at 10:30 Tamsulosin HCl (Flomax) 0.4 mg HS PO ; Start 08/11/16 at 21:00 Tiotropium [place] (Spiriva) 1 inh BID INH Last administered on 08/11/16 20:51 ; Admin Dose 1 INH; Start 08/11/16 at 21:00 Ondansetron HCl (Zofran Inj) 4 mg Q4H PRN IV NAUSEA AND/OR VOMITING; Start 08/11 at 10:30 Acetaminophen/ Hydrocodone Bitart ([place] (5/325)) 1 tab Q6H PRN PO MODERATE PAIN LEVEL 4-6; Start 08/11/16 at 10:30 Morphine Sulfate (morphine) 1 mg Q4H PRN IV SEVERE PAIN LEVEL 7-10; Start at 10:30 Docusate Sodium (Colace) 100 mg Q12H PRN PO CONSTIPATION; Start 08/11/16 at 10: 30 Zolpidem Tartrate (Ambien) 5 mg QHS PRN PO SLEEP; Start 08/11/16 at 10:30 Heparin Sodium (Porcine) (Heparin (5000 Units/0.5 ml)) 5,000 unit Q12 SC Last administered on 08/11/16 20:54; Admin Dose 5,000 UNIT; Start 08/11/16 at 21:00 Lactulose (Enulose) 30 gm Q2 PO Last administered on 08/12/16 05:39; Admin Dose 30 GM; Start 08/11/16 at 17:00; Status Future Hold Pantoprazole (Protonix Iv) 40 mg DAILY@06 IVPB Last administered on 08/12/16 05 :39; Admin Dose 40 MG; Start 08/11/16 at 16:00 Clonidine HCl 1 patch 1 patch Q7D TRANSDERM Last administered on 08/11/16 16:00 ; Admin Dose 1 PATCH; Start 08/11/16 at 16:00 Desmopressin Acetate/Sodium Chloride (Ddavp/NS) 55 ml @ 110 mls/hr Q12 IVPB ; Start 08/11/16 at 21:00; Stop 08/13/16 at 09:29 TRUE GTZ MD August 12, 2016 07:10
[2016-08-12] MEDS: CALCIUM ACETATE 667 MG CAP PO SCH ×3 (08:13→17:33)
[2016-08-12] MEDS: LEVOTHYROXINE 125 MCG TAB PO SCH (08:13)
[2016-08-12] MEDS: MINOXIDIL 2.5 MG TAB PO SCH ×3 (09:00→21:41)
[2016-08-12] MEDS: TIOTROPIUM 18 MCG CAPSULE INHA DEV INH SCH ×2 (09:00→21:31)
[2016-08-12] MEDS: DOCUSATE SODIUM 100 MG CAP PO SCH ×2 (09:00→21:25)
[2016-08-12] MEDS: HEPARIN 5,000 UNIT/0.5 ML VIAL SC SCH ×3 (09:00→19:36)
--- NOTE | 2016-08-12 09:23 | CONS ---
Date/Time of Note Date/Time of Note DATE: 08/12/16 TIME: 09:23 Assessment/Plan Assessment/Plan Chief Complaint/Hosp Course Anemia - CHRONIC, MULTIFACTORIAL, severe HX ANEMIA WITH +COMPONENT ACD AND IRON DEFICIENCY TRANSFUSE PRBC MONITOR BLOOD COUNT CLOSELY OBSERVE FOR BLEEDING AND HEMOLYSIS TRANSFUSE NEEDED EPO WITH HD post EGD 08.13.16- Mild reflux esophagitis. Antral gastritis. Fundal nodular gastritis. LEUKOCYTOSIS REACTIVE MONITOR CLOSELY NOTE THAT PT IS not ON STEROIDS End-stage renal disease, hemodialysis dependent. Right chest Perm-A-Cath. Chronic obstructive pulmonary disease exacerbation. CHF, mild Interstitial and COPD, rx with daily steroids (po) POST RECENT Acute respiratory failure RECENT Pneumonia Problems: Consultation Date/Type/Reason Admit Date/Time August 11, 2016 at 14:20 Initial Consult Date 08/11/16 Type of Consultation: HEMEONC Reason for Consultation ANEMIA Referring Provider: HINA CASTILLO MD 24 HR Interval Summary Free Text/Dictation POST 4 U PRBC NO BLEEDING NO HEMOLYSIS ? lab error, no evid gross gi bleeding, stool ob pending. Exam/Review of Systems Vital Signs Vitals Vital Signs Date Time Temp Pulse Resp B/P Pulse Ox O2 Delivery O2 Flow Rate FiO2 08/12/16 09:06 75 22 99 Nasal Cannula 3.0 08/12/16 09:00 125/54 08/12/16 06:14 32 08/12/16 04:00 98.0 Intake and Output 08/11/16 08/11/16 08/12/16 15:00 23:00 07:00 Intake Total 1000 ml 50 ml Output Total 5050 ml 50 ml Balance -4050 ml 0 ml Exam Exam Neck: No jvd Respiratory: diminished breath sounds, other (rales bilat) Cardiovascular: regular rate and rhythm Gastrointestinal: soft Extremities: No edema Results Result Diagram: 08/12/16 0520 08/12/16 0520 Results 24 hrs Laboratory Tests Test 08/11/16 09:50 08/11/16 10:30 08/11/16 13:15 08/11/16 17:06 White Blood Count 5.8 Red Blood Count 1.49 #L Hemoglobin 4.6 #*L Hematocrit 14.4 #L Mean Corpuscular Volume 96.6 Mean Corpuscular Hemoglobin 30.9 Mean Corpuscular Hemoglobin Concent 31.9 L Red Cell Distribution Width 15.3 H Platelet Count 90 #L Mean Platelet Volume 8.3 Neutrophils % 72.6 Lymphocytes % 14.9 L Monocytes % 7.4 Eosinophils % 4.2 Basophils % 0.2 Nucleated Red Blood Cells % 0.0 Neutrophils # 4.2 Lymphocytes # 0.9 Monocytes # 0.4 Eosinophils # 0.2 Basophils # 0.0 Nucleated Red Blood Cells # 0.0 Prothrombin Time 19.2 #H Prothrombin Time Ratio 1.5 INR International Normalized Ratio 1.60 Activated Partial Thromboplast Time 43.1 H Sodium Level 138 Potassium Level 2.7 *L Chloride Level 110 Carbon Dioxide Level 11 L Anion Gap 20 H Blood Urea Nitrogen 64 H Creatinine 7.48 H Glucose Level 57 L Calcium Level 5.8 *L Troponin I 0.038 Absolute Reticulocyte Count 0.018 L Percent Reticulocyte Count 1.2 Iron Level 36 Total Iron Binding Capacity 151 L Percent Iron Saturation 24 Ferritin 645.0 H Lactate Dehydrogenase 381 Blood Gas Specimen Source Blood arterial Blood arterial Arterial Blood Date Drawn 08/11/2016 1:38:31 PM 08/11/2016 5:11:02 PM Arterial Blood pH (Temp corrected) 7.319 L 7.289 *L Arterial Blood pCO2 (Temp correct) 42.4 50.9 H Arterial Blood pO2 (Temp corrected) 112.0 H 458.7 H Arterial Blood HCO3 21.3 L 23.9 Arterial Blood Base Excess -4.6 L -3.5 L Arterial Blood Oxygen Saturation 97.5 99.6 Nikita Test ACCEPTAB ACCEPTAB Arterial Blood Gas Puncture Site Right Radial Right Brachial Arterial Blood Carboxyhemoglobin 0.4 0.2 Arterial Blood Methemoglobin 0.4 0.6 Blood Gas A-a O2 Differential 52.1 H 203.4 H Oxyhemoglobin Percent 96.7 98.8 Total Hemoglobin 12.0 17.7 Blood Gas Temperature 37.0 37.0 Blood Gas Modality NASAL CANNULA MASK - NRB FiO2 30.0 100.0 Blood Gas Notified Solitario LISA Blood Gas Notified Time 08/11/2016 1:46:05 PM 08/11/2016 5:17:48 PM Blood Gas Critical Value Read Back Rula OSCAR RN Test 08/11/16 17:30 08/11/16 20:00 08/11/16 20:56 08/12/16 00:15 White Blood Count 15.1 #H Red Blood Count 5.57 # Hemoglobin 16.5 # 14.0 Hematocrit 48.6 # 42.0 Mean Corpuscular Volume 87.3 Mean Corpuscular Hemoglobin 29.6 Mean Corpuscular Hemoglobin Concent 34.0 Red Cell Distribution Width 15.9 H Platelet Count 206 # Mean Platelet Volume 8.9 Neutrophils % 84.3 H Lymphocytes % 5.5 L Monocytes % 6.4 Eosinophils % 2.2 Basophils % 0.3 Nucleated Red Blood Cells % 0.0 Neutrophils # 12.7 H Lymphocytes # 0.8 Monocytes # 1.0 H Eosinophils # 0.3 Basophils # 0.1 Nucleated Red Blood Cells # 0.0 Sodium Level 135 Potassium Level 5.1 # Chloride Level 96 #L Carbon Dioxide Level 24 # Anion Gap 20 H Blood Urea Nitrogen 57 H Creatinine 7.17 H Glucose Level 94 Calcium Level 9.6 Phosphorus Level 4.3 Creatine Kinase 41 34 Creatine Kinase Index 6.5 6.8 Creatinine Kinase MB (Mass) 2.65 H 2.31 Troponin I 0.057 0.052 Blood Gas Specimen Source Blood arterial Arterial Blood Date Drawn 08/11/2016 8:35:01 PM Arterial Blood pH (Temp corrected) 7.408 Arterial Blood pCO2 (Temp correct) 35.7 Arterial Blood pO2 (Temp corrected) 139.0 H Arterial Blood HCO3 22.0 Arterial Blood Base Excess -2.0 Arterial Blood Oxygen Saturation 98.7 Nikita Test ACCEPTAB Arterial Blood Gas Puncture Site Right Radial Arterial Blood Carboxyhemoglobin 0.9 Arterial Blood Methemoglobin 0.4 Blood Gas A-a O2 Differential 105.1 H Oxyhemoglobin Percent 97.4 Total Hemoglobin 16.2 Blood Gas Temperature 37.0 Blood Gas Respiration Rate 20.0 Blood Gas Actual Respiration Rate 26 Blood Gas Modality BIPAP - S/T FiO2 40.0 Blood Gas Pressure Support 10 Blood Gas IPAP/EPAP Ratio 18/8 Blood Gas Notified Whom RTR Blood Gas Notified Time 08/11/2016 8:52:22 PM Test 08/12/16 05:20 08/12/16 05:47 White Blood Count 13.4 H Red Blood Count 4.97 Hemoglobin 14.6 Hematocrit 43.6 Mean Corpuscular Volume 87.7 Mean Corpuscular Hemoglobin 29.4 Mean Corpuscular Hemoglobin Concent 33.5 Red Cell Distribution Width 16.7 H Platelet Count 203 Mean Platelet Volume 9.1 Neutrophils % 72.9 Lymphocytes % 14.7 L Monocytes % 8.0 Eosinophils % 2.7 Basophils % 0.4 Nucleated Red Blood Cells % 0.0 Neutrophils # 9.8 H Lymphocytes # 2.0 Monocytes # 1.1 H Eosinophils # 0.4 Basophils # 0.1 Nucleated Red Blood Cells # 0.0 Prothrombin Time Pending Prothrombin Time Ratio 1.2 INR International Normalized Ratio 1.17 Activated Partial Thromboplast Time 32.1 Sodium Level 135 Potassium Level 5.7 H Chloride Level 99 Carbon Dioxide Level 23 Anion Gap 19 H Blood Urea Nitrogen 70 H Creatinine 8.71 H Glucose Level 92 Hemoglobin A1c 4.8 Calcium Level 9.6 Magnesium Level 2.1 Total Bilirubin 0.4 Direct Bilirubin 0.00 Indirect Bilirubin 0.4 Aspartate Amino Transf (AST/SGOT) 13 L Alanine Aminotransferase (ALT/SGPT) 23 Alkaline Phosphatase 76 Ammonia < 9 L Total Protein 7.5 Albumin 3.8 Globulin 3.70 H Albumin/Globulin Ratio 1.02 Thyroid Stimulating Hormone (TSH) 0.677 Lab Scanned Report BLOOD TRANSFUSION Medications Medications Current Medications Acetaminophen (Tylenol Tab) 650 mg Q6H PRN PO PAIN AND OR ELEVATED TEMP; Start 08/11/16 at 10:30 Carvedilol (Coreg) 12.5 mg BID PO Last administered on 08/11/16 20:52; Admin Dose 12.5 MG; Start 08/11/16 at 21:00 Docusate Sodium (Colace) 100 mg Q12 PO ; Start 08/11/16 at 21:00 Minoxidil (Loniten) 5 mg BID PO ; Start 08/11/16 at 21:00 Multivit/Ca Carb/ B Cmplx/FA/Prenat (Katlyn-Michael) 1 tab DAILY PO ; Start 08/12/16 at 09:00 Nifedipine (Procardia Xl) 30 mg BID PO Last administered on 08/11/16 20:52; Admin Dose 30 MG; Start 08/11/16 at 21:00 Salmeterol Xinafoate/ Fluticasone (Advair 500/50 Diskus) 1 inh BID INH Last administered on 08/11/16 20:51; Admin Dose 1 INH; Start 08/11/16 at 21:00 Senna (Senokot) 1 tab DAILY PRN PO CONSTIPATION; Start 08/11/16 at 10:30 Tamsulosin HCl (Flomax) 0.4 mg HS PO ; Start 08/11/16 at 21:00 Tiotropium [place] (Spiriva) 1 inh BID INH Last administered on 08/11/16 20:51 ; Admin Dose 1 INH; Start 08/11/16 at 21:00 Ondansetron HCl (Zofran Inj) 4 mg Q4H PRN IV NAUSEA AND/OR VOMITING; Start 08/11 at 10:30 Acetaminophen/ Hydrocodone Bitart ([place] (5/325)) 1 tab Q6H PRN PO MODERATE PAIN LEVEL 4-6; Start 08/11/16 at 10:30 Morphine Sulfate (morphine) 1 mg Q4H PRN IV SEVERE PAIN LEVEL 7-10; Start at 10:30 Docusate Sodium (Colace) 100 mg Q12H PRN PO CONSTIPATION; Start 08/11/16 at 10: 30 Zolpidem Tartrate (Ambien) 5 mg QHS PRN PO SLEEP; Start 08/11/16 at 10:30 Heparin Sodium (Porcine) (Heparin (5000 Units/0.5 ml)) 5,000 unit Q12 SC Last administered on 08/11/16 20:54; Admin Dose 5,000 UNIT; Start 08/11/16 at 21:00 Lactulose (Enulose) 30 gm Q2 PO Last administered on 08/12/16 05:39; Admin Dose 30 GM; Start 08/11/16 at 17:00; Status Future Hold Pantoprazole (Protonix Iv) 40 mg DAILY@06 IVPB Last administered on 08/12/16 05 :39; Admin Dose 40 MG; Start 08/11/16 at 16:00 Clonidine HCl 1 patch 1 patch Q7D TRANSDERM Last administered on 08/11/16 16:00 ; Admin Dose 1 PATCH; Start 08/11/16 at 16:00 Desmopressin Acetate/Sodium Chloride (Ddavp/NS) 55 ml @ 110 mls/hr Q12 IVPB ; Start 08/11/16 at 21:00; Stop 08/13/16 at 09:29 ANDRE SMITH MD August 12, 2016 09:23
[2016-08-12] MEDS: MULTIVIT/CA CARB/B CMPLX/FA TAB PO SCH (09:42)
[2016-08-12] MEDS: DESMOPRESSIN 20 MCG in SOD CHLORIDE 0.9% 50 ML IVPB SCH ×2 (09:42→21:27)
--- NOTE | 2016-08-12 09:44 | PN ---
Date/Time of Note Date/Time of Note DATE: 08/12/16 TIME: 09:29 Assessment/Plan VTE Prophylaxis VTE Prophylaxis Intervention: ambulation VTE Contraindication Reason: peripheral vascular disease Lines/Catheters IV Catheter Type (from Nrsg): Peripheral IV Urinary Cath still in place: Yes Reason Cath still needed: urinary retention Assessment/Plan Assessment/Plan 1. Acute on chronic respiratory insufficiency,on bronchodilatations and 02. 2. Acute GI bleeding with drop of h/h. Was on home steroids now 5 mg qd more than 2 months. 3. Sepsis-cultures pending. Vanco and zosyn x 2.. 4. End-stage renal disease-on HD-Discuses with .Chronic metabolic acidosis and hypokalemia with hypocapnia. 5. Anxiety, depression with dissatisfaction 6. Diabetes type 2-better controlled 7. Osteoarthritis. 8. Anemia of chronic disease-H/H 07/24- Hct now nl after 4 units;no evid gross gi bleeding, stool ob pending.S/P oreviouse Tx-s 9. Status post multiple units of packed red blood cell transfusions-now getting more.. 10. Weight loss-more than 60lb in 11 months. 11. Hypertension-out of control during respiratory distress. 12. Memory impairment. 13. Major depression. 14. Back pain. 15. Benign prostatic hypertrophy. 16. S/P left forearm a/v shunt placement for dialysis-functions well , not mature yet. 17. S/P right Jugular vein cannulation for dialysis-no signs of infection. 18. Hypoxemia with hypercapnia(Hx of) on home 02 and BIPAP. 19. Anxiety; borderline personality; 20. Excessive thirst. 21. Constipation 22.Chest pain during HD today frequently(s/p 2 angiographies and stenting)cardiology consult. 23.Terminally ill with inability to deside DNR status. He refused to answer. Macario I received a modesto from RN that he agreed for DNR and DNI. 24.Incomplete data. 3. Elev K, will resolve with HD 4. 5. 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 6. Known CAD, asx Subjective 24 Hr Interval Summary Free Text/Dictation I feel better. SOB improved. Wheezing decreased. Subjective hx not possible: pt critical Constitutional: diaphoresis, disoriented, poor po, requiring O2, No chills, No febrile, No improved, No no complaints, No other, No requiring IVF Eyes: discharge, pain, redness, visual change, No no complaints, No other ENT: congestion, dysphagia, pain, sore throat, No bleeding, No discharge, No no complaints, No other Respiratory: cough, shortness of breath, sputum, wheezing, No no complaints, No other, No pain, No pleuritic pain Cardiovascular: chest pain, lightheadedness, orthopenea, palpitations, paroxysmal nocturnal dyspnea, No edema, No no complaints, No other Gastrointestinal: constipation, decreased appetite, flatus, pain Genitourinary: dysuria, flank pain, No bleeding, No discharge, No hematuria, No no complaints, No other Musculoskeletal: back pain, bone/joint pain, neck pain, No no complaints, No other, No restricted range of motion, No swelling Skin: erythema, pruritis, rash, skin lesions, No bruising, No laceration, No no complaints, No other Neurologic: confusion, dizziness, focal-weakness, headache, No no complaints, No other, No seizure, No syncope Endocrine: dry skin, polydypsia, temp intolerance Psychological: anxiety, confusion, depression, No nl mood/affect, No no complaints, No other, No suicidal Immunologic: pruritis, urticaria Exam/Review of Systems Vital Signs Vitals Vital Signs Date Time Temp Pulse Resp B/P Pulse Ox O2 Delivery O2 Flow Rate FiO2 08/12/16 09:06 75 22 99 Nasal Cannula 3.0 08/12/16 09:00 125/54 08/12/16 06:14 32 08/12/16 04:00 98.0 Intake and Output 08/11/16 08/11/16 08/12/16 15:00 23:00 07:00 Intake Total 1000 ml 50 ml Output Total 5050 ml 50 ml Balance -4050 ml 0 ml Exam Constitutional: alert, distress, frail, oriented, well developed, No non-verbal, No obese, No other Psych: anxiety, confusion, depression, No nl mood/affect, No no complaints, No other, No suicidal Head: atraumatic, No hematomas, No lacerations, No normocephalic, No other Eyes: EOMI, PERRL, nl lids, No fundi, disc, No icteric, No nl conjunctiva, No nl sclera, No other ENMT: nl nasal mucosa & septum, No intubated, No mucosa pink and moist, No nl external ears & nose, No nl lips & teeth, No other, No tympanic membranes Neck: bruits, jvd, nuchal rigidity Respiratory: congested cough, diminished breath sounds, labored breathing, No clear to auscultation, No crackles/rales, No intercostal retraction, No normal air movement, No other, No respirations, No tactile fremitus, No wheezing Cardiovascular: bruits, jugular venous distention (JVD), systolic murmur, No S3, No S4, No diastolic murmur, No edema, No gallop, No irregular rhythm, No murmurs/extra sounds, No nl pulses, No other, No regular rate and rhythm, No rub Gastrointestinal: bowel sounds, distended, nl liver, spleen, soft, No ascites, No firm, No hepatomegaly, No mass, No non-tender, No other, No rebound or guarding, No splenomegaly, No surgical scars, No tender Musculoskeletal: joint tenderness, muscle tone, muscle weakness, No nl extremities to inspection, No nl gait and stance, No other, No range of motion, No spine non-tender, No swelling Extremities: calf tenderness, palpable cord, tenderness Neurological: GOLD BEATER II-XII intact (decreased hearing.), No DTR's symmetric, No confused, No focal weakness, No lethargic, No nl mental status, No nl speech, No nl strength, No numbness, No other, No reflexes , No unresponsive Skin: diaphoresis, ecchymosis, No laceration, No nl turgor, No other, No puncture, No rash or lesions Results Result Diagram: 08/12/16 0508/12/16 05 Results 24 hrs Laboratory Tests Test 08/11/16 09:50 08/11/16 10:30 08/11/16 13:15 08/11/16 17:06 White Blood Count 5.8 Red Blood Count 1.49 #L Hemoglobin 4.6 #*L Hematocrit 14.4 #L Mean Corpuscular Volume 96.6 Mean Corpuscular Hemoglobin 30.9 Mean Corpuscular Hemoglobin Concent 31.9 L Red Cell Distribution Width 15.3 H Platelet Count 90 #L Mean Platelet Volume 8.3 Neutrophils % 72.6 Lymphocytes % 14.9 L Monocytes % 7.4 Eosinophils % 4.2 Basophils % 0.2 Nucleated Red Blood Cells % 0.0 Neutrophils # 4.2 Lymphocytes # 0.9 Monocytes # 0.4 Eosinophils # 0.2 Basophils # 0.0 Nucleated Red Blood Cells # 0.0 Prothrombin Time 19.2 #H Prothrombin Time Ratio 1.5 INR International Normalized Ratio 1.60 Activated Partial Thromboplast Time 43.1 H Sodium Level 138 Potassium Level 2.7 *L Chloride Level 110 Carbon Dioxide Level 11 L Anion Gap 20 H Blood Urea Nitrogen 64 H Creatinine 7.48 H Glucose Level 57 L Calcium Level 5.8 *L Troponin I 0.038 Absolute Reticulocyte Count 0.018 L Percent Reticulocyte Count 1.2 Iron Level 36 Total Iron Binding Capacity 151 L Percent Iron Saturation 24 Ferritin 645.0 H Lactate Dehydrogenase 381 Blood Gas Specimen Source Blood arterial Blood arterial Arterial Blood Date Drawn 08/11/2016 1:38:31 PM 08/11/2016 5:11:02 PM Arterial Blood pH (Temp corrected) 7.319 L 7.289 *L Arterial Blood pCO2 (Temp correct) 42.4 50.9 H Arterial Blood pO2 (Temp corrected) 112.0 H 458.7 H Arterial Blood HCO3 21.3 L 23.9 Arterial Blood Base Excess -4.6 L -3.5 L Arterial Blood Oxygen Saturation 97.5 99.6 Nikita Test ACCEPTAB ACCEPTAB Arterial Blood Gas Puncture Site Right Radial Right Brachial Arterial Blood Carboxyhemoglobin 0.4 0.2 Arterial Blood Methemoglobin 0.4 0.6 Blood Gas A-a O2 Differential 52.1 H 203.4 H Oxyhemoglobin Percent 96.7 98.8 Total Hemoglobin 12.0 17.7 Blood Gas Temperature 37.0 37.0 Blood Gas Modality NASAL CANNULA MASK - NRB FiO2 30.0 100.0 Blood Gas Notified Whom Bridger LISA Blood Gas Notified Time 08/11/2016 1:46:05 PM 08/11/2016 5:17:48 PM Blood Gas Critical Value Read Back Rula OSCAR RN Test 08/11/16 17:30 08/11/16 20:00 08/11/16 20:56 08/12/16 00:15 White Blood Count 15.1 #H Red Blood Count 5.57 # Hemoglobin 16.5 # 14.0 Hematocrit 48.6 # 42.0 Mean Corpuscular Volume 87.3 Mean Corpuscular Hemoglobin 29.6 Mean Corpuscular Hemoglobin Concent 34.0 Red Cell Distribution Width 15.9 H Platelet Count 206 # Mean Platelet Volume 8.9 Neutrophils % 84.3 H Lymphocytes % 5.5 L Monocytes % 6.4 Eosinophils % 2.2 Basophils % 0.3 Nucleated Red Blood Cells % 0.0 Neutrophils # 12.7 H Lymphocytes # 0.8 Monocytes # 1.0 H Eosinophils # 0.3 Basophils # 0.1 Nucleated Red Blood Cells # 0.0 Sodium Level 135 Potassium Level 5.1 # Chloride Level 96 #L Carbon Dioxide Level 24 # Anion Gap 20 H Blood Urea Nitrogen 57 H Creatinine 7.17 H Glucose Level 94 Calcium Level 9.6 Phosphorus Level 4.3 Creatine Kinase 41 34 Creatine Kinase Index 6.5 6.8 Creatinine Kinase MB (Mass) 2.65 H 2.31 Troponin I 0.057 0.052 Blood Gas Specimen Source Blood arterial Arterial Blood Date Drawn 08/11/2016 8:35:01 PM Arterial Blood pH (Temp corrected) 7.408 Arterial Blood pCO2 (Temp correct) 35.7 Arterial Blood pO2 (Temp corrected) 139.0 H Arterial Blood HCO3 22.0 Arterial Blood Base Excess -2.0 Arterial Blood Oxygen Saturation 98.7 Nikita Test ACCEPTAB Arterial Blood Gas Puncture Site Right Radial Arterial Blood Carboxyhemoglobin 0.9 Arterial Blood Methemoglobin 0.4 Blood Gas A-a O2 Differential 105.1 H Oxyhemoglobin Percent 97.4 Total Hemoglobin 16.2 Blood Gas Temperature 37.0 Blood Gas Respiration Rate 20.0 Blood Gas Actual Respiration Rate 26 Blood Gas Modality BIPAP - S/T FiO2 40.0 Blood Gas Pressure Support 10 Blood Gas IPAP/EPAP Ratio 18/8 Blood Gas Notified Whom RTR Blood Gas Notified Time 08/11/2016 8:52:22 PM Test 08/12/16 05:20 08/12/16 05:47 White Blood Count 13.4 H Red Blood Count 4.97 Hemoglobin 14.6 Hematocrit 43.6 Mean Corpuscular Volume 87.7 Mean Corpuscular Hemoglobin 29.4 Mean Corpuscular Hemoglobin Concent 33.5 Red Cell Distribution Width 16.7 H Platelet Count 203 Mean Platelet Volume 9.1 Neutrophils % 72.9 Lymphocytes % 14.7 L Monocytes % 8.0 Eosinophils % 2.7 Basophils % 0.4 Nucleated Red Blood Cells % 0.0 Neutrophils # 9.8 H Lymphocytes # 2.0 Monocytes # 1.1 H Eosinophils # 0.4 Basophils # 0.1 Nucleated Red Blood Cells # 0.0 Prothrombin Time Pending Prothrombin Time Ratio 1.2 INR International Normalized Ratio 1.17 Activated Partial Thromboplast Time 32.1 Sodium Level 135 Potassium Level 5.7 H Chloride Level 99 Carbon Dioxide Level 23 Anion Gap 19 H Blood Urea Nitrogen 70 H Creatinine 8.71 H Glucose Level 92 Hemoglobin A1c 4.8 Calcium Level 9.6 Magnesium Level 2.1 Total Bilirubin 0.4 Direct Bilirubin 0.00 Indirect Bilirubin 0.4 Aspartate Amino Transf (AST/SGOT) 13 L Alanine Aminotransferase (ALT/SGPT) 23 Alkaline Phosphatase 76 Ammonia < 9 L Total Protein 7.5 Albumin 3.8 Globulin 3.70 H Albumin/Globulin Ratio 1.02 Thyroid Stimulating Hormone (TSH) 0.677 Lab Scanned Report BLOOD TRANSFUSION Medications Medications Current Medications Acetaminophen (Tylenol Tab) 650 mg Q6H PRN PO PAIN AND OR ELEVATED TEMP; Start 08/11/16 at 10:30 Carvedilol (Coreg) 12.5 mg BID PO Last administered on 08/11/16 20:52; Admin Dose 12.5 MG; Start 08/11/16 at 21:00 Docusate Sodium (Colace) 100 mg Q12 PO ; Start 08/11/16 at 21:00 Minoxidil (Loniten) 5 mg BID PO ; Start 08/11/16 at 21:00 Multivit/Ca Carb/ B Cmplx/FA/Prenat (Katlyn-Michael) 1 tab DAILY PO ; Start 08/12/16 at 09:00 Nifedipine (Procardia Xl) 30 mg BID PO Last administered on 08/11/16 20:52; Admin Dose 30 MG; Start 08/11/16 at 21:00 Salmeterol Xinafoate/ Fluticasone (Advair 500/50 Diskus) 1 inh BID INH Last administered on 08/11/16 20:51; Admin Dose 1 INH; Start 08/11/16 at 21:00 Senna (Senokot) 1 tab DAILY PRN PO CONSTIPATION; Start 08/11/16 at 10:30 Tamsulosin HCl (Flomax) 0.4 mg HS PO ; Start 08/11/16 at 21:00 Tiotropium [place] (Spiriva) 1 inh BID INH Last administered on 08/11/16 20:51 ; Admin Dose 1 INH; Start 08/11/16 at 21:00 Ondansetron HCl (Zofran Inj) 4 mg Q4H PRN IV NAUSEA AND/OR VOMITING; Start 08/11 at 10:30 Acetaminophen/ Hydrocodone Bitart (Zoe (5/325)) 1 tab Q6H PRN PO MODERATE PAIN LEVEL 4-6; Start 08/11/16 at 10:30 Morphine Sulfate (morphine) 1 mg Q4H PRN IV SEVERE PAIN LEVEL 7-10; Start at 10:30 Docusate Sodium (Colace) 100 mg Q12H PRN PO CONSTIPATION; Start 08/11/16 at 10: 30 Zolpidem Tartrate (Ambien) 5 mg QHS PRN PO SLEEP; Start 08/11/16 at 10:30 Heparin Sodium (Porcine) (Heparin (5000 Units/0.5 ml)) 5,000 unit Q12 SC Last administered on 08/11/16 20:54; Admin Dose 5,000 UNIT; Start 08/11/16 at 21:00 Lactulose (Enulose) 30 gm Q2 PO Last administered on 08/12/16 05:39; Admin Dose 30 GM; Start 08/11/16 at 17:00; Status Future Hold Pantoprazole (Protonix Iv) 40 mg DAILY@06 IVPB Last administered on 08/12/16 05 :39; Admin Dose 40 MG; Start 08/11/16 at 16:00 Clonidine HCl 1 patch 1 patch Q7D TRANSDERM Last administered on 08/11/16 16:00 ; Admin Dose 1 PATCH; Start 08/11/16 at 16:00 Desmopressin Acetate/Sodium Chloride (Ddavp/NS) 55 ml @ 110 mls/hr Q12 IVPB ; Start 08/11/16 at 21:00; Stop 08/13/16 at 09:29 HINA CASTILLO MD August 12, 2016 09:44
--- NOTE | 2016-08-12 09:59 | RADRPT ---
PROCEDURE: XR Chest. CLINICAL INDICATION: Fluid overload TECHNIQUE: An AP view of the chest was obtained. COMPARISON: Chest x-ray dated 08/11/2016 FINDINGS: There is prominence of the interstitial markings. No pleural effusion or pneumothorax is seen. Th e cardiomediastinal silhouette is mildly enlarged . Calcifications are seen within the aortic arch. The osseous structures demonstrate senescent changes. IMPRESSION: 1. Findings suggesting interstitial edema. No significant interval change. 2. Mild cardiomegaly and aortic atherosclerosis. RPTAT: HH .Selma King MD, MD Date Time Electronically viewed and signed by .Selma King MD, MD on 08/12/2016 09:58 .G/
[2016-08-12] MEDS: SALMETEROL/FLUTICASONE 500/50 INHA INH SCH ×2 (10:15→21:28)
--- NOTE | 2016-08-12 10:54 | CONS ---
DATE OF ADMISSION: 08/11/2016 DATE OF CONSULTATION: 08/12/2016 Thank you, Dr. Mcallister for this consultation. HISTORY OF PRESENT ILLNESS: This is a pleasant 81-year-old gentleman with multiple medical problems , recently seen at [facility] and then subsequently transferred to [facility] , where he was initially evaluated for anemia with drop in hemoglobin. The patient underwent blood transfusion and subsequently developed significant respiratory failure with hypoxemia and hypercapni a. The patient was then transferred to the intensive care unit, placed on noninvasive positive pres sure ventilation and underwent emergent hemodialysis with volume removal. This morning appears more comfortable. PAST MEDICAL HISTORY: Mild dementia, recent significant weight loss, underlying questionable malign kaela, end-stage renal failure on hemodialysis and questionable gastrointestinal bleed. MEDICATIONS: Per chart. ALLERGIES: NONE. SOCIAL HISTORY: He is an ex-smoker, no alcohol, no history of drug use. FAMILY HISTORY: Noncontributory. SYSTEMS REVIEW: A 14-point review of systems was negative other than that mentioned above. PHYSICAL EXAMINATION: GENERAL: Elderly [place] gentleman, appears comfortable at rest, no acute distress, on nasal cannu la O2. VITAL SIGNS: Temperature 98, pulse 75, blood pressure 125/64, O2 saturation 99% on 3 L nasal cannul a. NECK: Supple. No JVD or lymphadenopathy. CARDIAC: S1, S2, no added sounds or murmurs. CHEST: Diminished air entry bilaterally. ABDOMEN: Soft, nontender. No guarding or rebound. EXTREMITIES: No cyanosis, clubbing, edema. NEUROLOGIC: Generalized weakness. LABORATORY DATA: BUN 70, creatinine 8.71, hemoglobin 14.6, white count 13.4, platelets 203. ABG is pending at time of this dictation. DIAGNOSTIC DATA: Chest x-ray was reviewed shows mild pulmonary edema. IMPRESSION: 1. Acute on chronic hypercapnic respiratory failure, likely secondary to volume overload with under lying history of probable COPD. 2. Severe anemia, questionable gastrointestinal bleed. 3. End-stage renal failure on hemodialysis. 4. History of chronic kidney disease. 5. History of coronary artery disease with congestive cardiac failure. The patient will require: 1. Continued hemodialysis with volume removal. 2. Supplemental O2 and/or noninvasive positive pressure ventilation if needed. 3. Aspiration precautions. 4. Hematology/oncology recommendations. 5. DVT and GI prophylaxis. Dictated By: CARLEEN MORGAN MD SV/CAMILO Conf#: [id number] DID#: [id number]
[2016-08-12 11:49] LABS: HEMATOCRIT 46.8 % (42.0-52.0); HEMOGLOBIN 15.5 g/dl (14.0-18.0)
[2016-08-12] MEDS: NIFEdipine (XL) 30 MG TAB PO SCH ×2 (12:47→21:27)
--- NOTE | 2016-08-12 15:53 | RADRPT ---
PROCEDURE: CT Abdomen and Pelvis without contrast. CLINICAL INDICATION: Anemia TECHNIQUE: CT scan of the abdomen and pelvis without contrast was performed on a multidetector hig h-resolution CT scanner. The patient was scanned without intravenous contrast. Coronal and sagittal reformatted images were obtained from the axial source images. Images were reviewed on a high-resol [employer] PACS workstation. The total exam CTDI equals 8.21 mGy and the total exam DLP equals 526.81 mGy -cm. One or more of the following dose reduction techniques were used: Automated exposure control. Adjustment of the mA and/or kV according to patient size. Use of iterative reconstruction technique. COMPARISON: CT abdomen and pelvis 04/09/2016 FINDINGS: CT abdomen: The lung bases are remarkable for bullous emphysema. There is peribronchial thickening with pleural parenchymal scarring in the lung bases. There is trace left pleural effusion with basilar atelecta sis. The heart size is normal, without pericardial thickening or effusion. The liver is normal in size and density without focal mass or intrahepatic biliary dilatation. Ther e is mild splenomegaly. The stomach is partially collapsed, but is grossly unremarkable. The pancre as as visualized is normal. The gallbladder is unremarkable. There is no evidence for biliary dilat ation. The adrenal glands are symmetric and normal. The kidneys are symmetrically unremarkable as well. No renal calculus or obstructive uropathy or mass lesion is seen. There are bilateral renal cortical cysts measures up to 4 cm in the lower pole right kidney. The aorta is of normal caliber. Aortic vascular calcifications are present. There is no retroperit call lymphadenopathy. The yoanna hepatis region is clear. The bowel and mesentery, as visualized, are equally unremarkable. There is a small hiatal hernia. CT pelvis: The small bowel loops situated within the pelvis are unremarkable. There is a fat-containing left in guinal hernia. Some ill-defined soft tissue densities are seen in the region of bilateral proximal inguinal canal. The pelvic organs are normal. The pelvic sidewalls and inguinal regions are clear. The sigmoid colon and rectum are unremarkable. No mass, lymphadenopathy, or free fluid is seen. No acute inflammation is seen. The surrounding osseous structures are remarkable for degenerative s pondylosis of the spine. No osteolytic or osteoblastic lesion is detected. Mild chronic compression fracture of T10 and T11 is again noted. IMPRESSION: 1. No mass, lymphadenopathy, or focal acute inflammatory process is identified. 2. Bilateral renal cortical cysts. 3. Aortoiliac atherosclerosis. 4. Bullous emphysema with extensive peribronchial thickening and scarring in the lung bases. Trace left pleural effusion with basilar atelectasis. 5. Mild splenomegaly. RPTAT: BB .Tha Nguyen MD, Date Time Electronically viewed and signed by .Tha Nguyen MD, on 08/12/2016 15:52 .O/
[2016-08-12] MEDS ORDERED: PEG/ELECTROLYTES 4L BTL PO ONE (18:00)
[2016-08-12 18:05] LABS: HEMATOCRIT 45.8 % (42.0-52.0); HEMOGLOBIN 15.2 g/dl (14.0-18.0)
--- NOTE | 2016-08-12 18:24 | PN ---
DATE: 08/12/2016 CHIEF COMPLAINT: Anemia. OBJECTIVE: GENERAL: The patient at this time is in the intensive care unit. He is alert, is not short of sherry th. He is off of BiPAP. VITAL SIGNS: Pulse is 78, blood pressure 130/70. CARDIOVASCULAR: Normal heart sounds. RESPIRATORY: Normal breath sounds. ABDOMEN: Shows soft abdomen with no palpable masses. No tenderness. LABORATORY DATA Hemoglobin is 15.5. Initially, his hemoglobin was 4. He was given 4 units of pac ked cells transfusion. The laboratory workup, again prothrombin time is 15 today. INR is 1.2. The chemistry: Potassium i s 5.7 as of yesterday. We do not have the potassium from today, which will be repeated of course at this time. IMPRESSION: Anemia, etiology unknown. Rule out bleeding ulcer disease, rule out colorectal neoplas m. PLAN: Recommend upper endoscopy as well as lower endoscopy. We will discuss it with the family. Dictated By: HAMZAH LEMA MD NC/NTS Conf#: [id number] DID#: [id number] CC: HAMZAH LEMA MD; MANDA FARRAR MD; HINA CASTILLO MD;*EndCC*
[2016-08-12 18:42] LABS: INR 1.19; PARTIAL THROMBOPLASTIN TIME 32.4 Sec (25.0-35.0); PROTIME 15.2 Sec (12.2-14.2); PT RATIO 1.2
[2016-08-12] MEDS: TAMSULOSIN (SR) 0.4 MG CAP PO SCH (21:31)
[2016-08-13] VITALS (17 sets, daily range): BP systolic 114–167; BP diastolic 55–75; PULSE 78–107; RESP 16–20
[2016-08-13 01:15] LABS: HEMATOCRIT 45.6 % (42.0-52.0); HEMOGLOBIN 15.1 g/dl (14.0-18.0)
[2016-08-13] MEDS: ALBUTEROL/IPRATROPIUM (NEB) 3 ML AMP HHN SCH ×4 (01:44→20:07)
[2016-08-13] MEDS: PANTOPRAZOLE 40 MG INJ IVPB SCH (05:17)
[2016-08-13] MEDS: LEVOTHYROXINE 125 MCG TAB PO SCH (06:16)
[2016-08-13] MEDS: CALCIUM ACETATE 667 MG CAP PO SCH ×3 (07:54→19:01)
[2016-08-13] MEDS ORDERED: POTASSIUM CHLORIDE 30 MEQ in DEXTROSE 5% 250 ML IVPB ONE (08:00)
[2016-08-13 08:08] LABS: ADD SCAN DIFF NO
[2016-08-13 08:09] LABS: BASOPHILS % 0.3 % (0.0-2.0); EOSINOPHILS # 0.2 10^3/ul (0.0-0.5); EOSINOPHILS % 1.5 % (0.0-7.0); HEMATOCRIT 43.9 % (42.0-52.0); HEMOGLOBIN 14.5 g/dl (14.0-18.0); LYMPHOCYTES # 1.6 10^3/ul (0.8-2.9); LYMPHOCYTES % 14.1 % (15.0-51.0); MEAN CORPUSCULAR HEMOGLOBIN 29.6 pg (29.0-33.0); MEAN CORPUSCULAR VOLUME 89.6 fl (82.0-101.0); MEAN PLATELET VOLUME 9.2 fl (7.4-10.4); MONOCYTE # 1.1 10^3/ul (0.3-0.9); MONOCYTES % 9.5 % (0.0-11.0); NEUTROPHIL # 8.6 10^3/ul (1.6-7.5); NEUTROPHILS % 73.8 % (39.0-77.0); PLATELET COUNT 197 10^3/UL (140-415); RED CELL DISTRIBUTION WIDTH 16.2 % (11.5-14.5); WHITE BLOOD COUNT 11.7 10^3/ul (4.8-10.8)
[2016-08-13 08:42] LABS: CALCIUM 9.5 mg/dl (8.4-10.2); CREATININE 7.02 mg/dl (0.61-1.24); POTASSIUM 3.6 mmol/L (3.5-5.1)
[2016-08-13] MEDS: NIFEdipine (XL) 30 MG TAB PO SCH ×2 (08:59→20:54)
[2016-08-13] MEDS: DOCUSATE SODIUM 100 MG CAP PO SCH ×2 (08:59→21:00)
[2016-08-13] MEDS: DESMOPRESSIN 20 MCG in SOD CHLORIDE 0.9% 50 ML IVPB SCH (08:59)
[2016-08-13] MEDS: SALMETEROL/FLUTICASONE 500/50 INHA INH SCH ×2 (08:59→21:00)
[2016-08-13] MEDS: HEPARIN 5,000 UNIT/0.5 ML VIAL SC SCH ×2 (09:00→21:00)
[2016-08-13] MEDS: TIOTROPIUM 18 MCG CAPSULE INHA DEV INH SCH ×2 (09:00→21:00)
[2016-08-13] MEDS: MULTIVIT/CA CARB/B CMPLX/FA TAB PO SCH (09:00)
--- NOTE | 2016-08-13 11:21 | CONS ---
Date/Time of Note Date/Time of Note DATE: 08/13/16 TIME: 11:19 Assessment/Plan Assessment/Plan Additional Assessment/Plan 1.CHF resolved 2.CKD with next HD scheduled tomm 3.Anemia on admit, stool ob pending, seen by GI-endo and colon planned 4.Labs reviewed Consultation Date/Type/Reason Admit Date/Time August 11, 2016 at 14:20 Detailed Summary Respiratory: shortness of breath (is mild) Cardiovascular: No chest pain Gastrointestinal: no complaints Genitourinary: no complaints Exam/Review of Systems Vital Signs Vitals Vital Signs Date Time Temp Pulse Resp B/P Pulse Ox O2 Delivery O2 Flow Rate FiO2 08/13/16 08:41 97 2.0 08/13/16 08:41 76 18 Nasal Cannula 08/13/16 07:59 97.4 159/70 08/12/16 06:14 32 Intake and Output 08/12/16 08/12/16 08/13/16 15:00 23:00 07:00 Intake Total 1500 ml 2655 ml 100 ml Output Total 4400 ml 800 ml Balance -2900 ml 1855 ml 100 ml Exam Neck: No jvd Respiratory: diminished breath sounds (and few rales at bases, dry) Cardiovascular: regular rate and rhythm, No S3 Gastrointestinal: soft Extremities: No edema Results Result Diagram: 08/13/16 0730 08/13/16 0730 Results 24 hrs Laboratory Tests Test 08/12/16 11:39 08/12/16 17:30 08/12/16 18:15 08/13/16 00:58 Hemoglobin 15.5 15.2 15.1 Hematocrit 46.8 45.8 45.6 Prothrombin Time 15.2 H Prothrombin Time Ratio 1.2 INR International Normalized Ratio 1.19 Activated Partial Thromboplast Time 32.4 Potassium Level 3.7 # Test 08/13/16 07:30 White Blood Count 11.7 H Red Blood Count 4.90 Hemoglobin 14.5 Hematocrit 43.9 Mean Corpuscular Volume 89.6 Mean Corpuscular Hemoglobin 29.6 Mean Corpuscular Hemoglobin Concent 33.0 Red Cell Distribution Width 16.2 H Platelet Count 197 Mean Platelet Volume 9.2 Neutrophils % 73.8 Lymphocytes % 14.1 L Monocytes % 9.5 Eosinophils % 1.5 Basophils % 0.3 Nucleated Red Blood Cells % 0.0 Neutrophils # 8.6 H Lymphocytes # 1.6 Monocytes # 1.1 H Eosinophils # 0.2 Basophils # 0.0 Nucleated Red Blood Cells # 0.0 Sodium Level 143 Potassium Level 3.6 Chloride Level 104 Carbon Dioxide Level 24 Anion Gap 19 H Blood Urea Nitrogen 47 #H Creatinine 7.02 H Glucose Level 125 Calcium Level 9.5 Medications Medications Current Medications Acetaminophen (Tylenol Tab) 650 mg Q6H PRN PO PAIN AND OR ELEVATED TEMP; Start 08/11/16 at 10:30 Carvedilol (Coreg) 12.5 mg BID PO Last administered on 08/12/16 21:26; Admin Dose 12.5 MG; Start 08/11/16 at 21:00 Docusate Sodium (Colace) 100 mg Q12 PO Last administered on 08/12/16 21:25; Admin Dose 100 MG; Start 08/11/16 at 21:00 Minoxidil (Loniten) 5 mg BID PO Last administered on 08/12/16 21:26; Admin Dose 5 MG; Start 08/11/16 at 21:00 Multivit/Ca Carb/ B Cmplx/FA/Prenat ([place]-Michael) 1 tab DAILY PO Last administered on 08/12/16 09:42; Admin Dose 1 TAB; Start 08/12/16 at 09:00 Nifedipine (Procardia Xl) 30 mg BID PO Last administered on 08/13/16 08:59; Admin Dose 30 MG; Start 08/11/16 at 21:00 Salmeterol Xinafoate/ Fluticasone (Advair 500/50 Diskus) 1 inh BID INH Last administered on 08/13/16 08:59; Admin Dose 1 INH; Start 08/11/16 at 21:00 Senna (Senokot) 1 tab DAILY PRN PO CONSTIPATION; Start 08/11/16 at 10:30 Tamsulosin HCl (Flomax) 0.4 mg HS PO Last administered on 08/12/16 21:31; Admin Dose 0.4 MG; Start 08/11/16 at 21:00 Tiotropium [place] (Spiriva) 1 inh BID INH Last administered on 08/13/16 09:00 ; Admin Dose 1 INH; Start 08/11/16 at 21:00 Ondansetron HCl (Zofran Inj) 4 mg Q4H PRN IV NAUSEA AND/OR VOMITING; Start 08/11 at 10:30 Acetaminophen/ Hydrocodone Bitart ([place] (5/325)) 1 tab Q6H PRN PO MODERATE PAIN LEVEL 4-6; Start 08/11/16 at 10:30 Morphine Sulfate (morphine) 1 mg Q4H PRN IV SEVERE PAIN LEVEL 7-10; Start at 10:30 Docusate Sodium (Colace) 100 mg Q12H PRN PO CONSTIPATION; Start 08/11/16 at 10: 30 Zolpidem Tartrate (Ambien) 5 mg QHS PRN PO SLEEP; Start 08/11/16 at 10:30 Heparin Sodium (Porcine) (Heparin (5000 Units/0.5 ml)) 5,000 unit Q12 SC Last administered on 08/11/16 20:54; Admin Dose 5,000 UNIT; Start 08/11/16 at 21:00 Lactulose (Enulose) 30 gm Q2 PO Last administered on 08/12/16 05:39; Admin Dose 30 GM; Start 08/11/16 at 17:00; Status Future Hold Pantoprazole (Protonix Iv) 40 mg DAILY@06 IVPB Last administered on 08/13/16 05 :17; Admin Dose 40 MG; Start 08/11/16 at 16:00 Clonidine HCl (Catapres-Tts 2 Patch) 1 patch Q7D TRANSDERM Last administered on 08/11/16 16:00; Admin Dose 1 PATCH; Start 08/11/16 at 16:00 TRUE GTZ MD August 13, 2016 11:21
--- NOTE | 2016-08-13 12:21 | CONS ---
Date/Time of Note Date/Time of Note DATE: 08/13/16 TIME: 12:19 Assessment/Plan Assessment/Plan Additional Assessment/Plan Assessment recommendations; 1. Patient admitted for acute respiratory decompensation due to fluid overload and pulmonary edema with marked overall clinical improvement. 2. Chronic renal failure, on hemodialysis. 3. Hypertension. 4. Anemia. Continue current treatment. Patient responding well to current treatment regimen. Consultation Date/Type/Reason Admit Date/Time August 11, 2016 at 14:20 Initial Consult Date Type of Consultation: Pulmonary 24 HR Interval Summary Free Text/Dictation Patient condition is stable. With marked reduction in shortness of breath. Patient is denying any chest pain, sputum production. Any fever or chills. Exam; elderly male, awake alert currently in no distress. Exam/Review of Systems Vital Signs Vitals Vital Signs Date Time Temp Pulse Resp B/P Pulse Ox O2 Delivery O2 Flow Rate FiO2 08/13/16 12:13 86 08/13/16 11:34 97.7 17 167/75 96 08/13/16 08:41 2.0 08/13/16 08:41 Nasal Cannula 08/12/16 06:14 32 Intake and Output 08/12/16 08/12/16 08/13/16 15:00 23:00 07:00 Intake Total 1500 ml 2655 ml 100 ml Output Total 4400 ml 800 ml Balance -2900 ml 1855 ml 100 ml Exam HEENT exam; supple neck, positive JVD. No lymphadenopathy. Midline trachea. No thyromegaly. No neck bruits. Patient is edentulous. Pupils are small bilaterally. Chest examination; diminished but clear vessel. S1-S2 audible, no murmurs. Regular rhythm. Abdomen examination; soft, nontender. No organomegaly. Bowel sounds audible. Extremity examination; no peripheral edema. Pulses 1+ bilaterally. 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 Results Result Diagram: 08/13/16 0730 08/13/16 0730 Results 24 hrs Laboratory Tests Test 08/12/16 17:30 08/12/16 18:15 08/13/16 00:58 08/13/16 07:30 Hemoglobin 15.2 15.1 14.5 Hematocrit 45.8 45.6 43.9 Prothrombin Time 15.2 H Prothrombin Time Ratio 1.2 INR International Normalized Ratio 1.19 Activated Partial Thromboplast Time 32.4 Potassium Level 3.7 # 3.6 White Blood Count 11.7 H Red Blood Count 4.90 Mean Corpuscular Volume 89.6 Mean Corpuscular Hemoglobin 29.6 Mean Corpuscular Hemoglobin Concent 33.0 Red Cell Distribution Width 16.2 H Platelet Count 197 Mean Platelet Volume 9.2 Neutrophils % 73.8 Lymphocytes % 14.1 L Monocytes % 9.5 Eosinophils % 1.5 Basophils % 0.3 Nucleated Red Blood Cells % 0.0 Neutrophils # 8.6 H Lymphocytes # 1.6 Monocytes # 1.1 H Eosinophils # 0.2 Basophils # 0.0 Nucleated Red Blood Cells # 0.0 Sodium Level 143 Chloride Level 104 Carbon Dioxide Level 24 Anion Gap 19 H Blood Urea Nitrogen 47 #H Creatinine 7.02 H Glucose Level 125 Calcium Level 9.5 Medications Medications Current Medications Acetaminophen (Tylenol Tab) 650 mg Q6H PRN PO PAIN AND OR ELEVATED TEMP; Start 08/11/16 at 10:30 Carvedilol (Coreg) 12.5 mg BID PO Last administered on 08/12/16 21:26; Admin Dose 12.5 MG; Start 08/11/16 at 21:00 Docusate Sodium (Colace) 100 mg Q12 PO Last administered on 08/12/16 21:25; Admin Dose 100 MG; Start 08/11/16 at 21:00 Minoxidil (Loniten) 5 mg BID PO Last administered on 08/12/16 21:26; Admin Dose 5 MG; Start 08/11/16 at 21:00 Multivit/Ca Carb/ B Cmplx/FA/Prenat ([place]lyn-Michael) 1 tab DAILY PO Last administered on 08/12/16 09:42; Admin Dose 1 TAB; Start 08/12/16 at 09:00 Nifedipine (Procardia Xl) 30 mg BID PO Last administered on 08/13/16 08:59; Admin Dose 30 MG; Start 08/11/16 at 21:00 Salmeterol Xinafoate/ Fluticasone (Advair 500/50 Diskus) 1 inh BID INH Last administered on 08/13/16 08:59; Admin Dose 1 INH; Start 08/11/16 at 21:00 Senna (Senokot) 1 tab DAILY PRN PO CONSTIPATION; Start 08/11/16 at 10:30 Tamsulosin HCl (Flomax) 0.4 mg HS PO Last administered on 08/12/16 21:31; Admin Dose 0.4 MG; Start 08/11/16 at 21:00 Tiotropium [place] (Spiriva) 1 inh BID INH Last administered on 08/13/16 09:00 ; Admin Dose 1 INH; Start 08/11/16 at 21:00 Ondansetron HCl (Zofran Inj) 4 mg Q4H PRN IV NAUSEA AND/OR VOMITING; Start 08/11 at 10:30 Acetaminophen/ Hydrocodone Bitart ([place] (5/325)) 1 tab Q6H PRN PO MODERATE PAIN LEVEL 4-6; Start 08/11/16 at 10:30 Morphine Sulfate (morphine) 1 mg Q4H PRN IV SEVERE PAIN LEVEL 7-10; Start at 10:30 Docusate Sodium (Colace) 100 mg Q12H PRN PO CONSTIPATION; Start 08/11/16 at 10: 30 Zolpidem Tartrate (Ambien) 5 mg QHS PRN PO SLEEP; Start 08/11/16 at 10:30 Heparin Sodium (Porcine) (Heparin (5000 Units/0.5 ml)) 5,000 unit Q12 SC Last administered on 08/11/16 20:54; Admin Dose 5,000 UNIT; Start 08/11/16 at 21:00 Lactulose (Enulose) 30 gm Q2 PO Last administered on 08/12/16 05:39; Admin Dose 30 GM; Start 08/11/16 at 17:00; Status Future Hold Pantoprazole (Protonix Iv) 40 mg DAILY@06 IVPB Last administered on 08/13/16 05 :17; Admin Dose 40 MG; Start 08/11/16 at 16:00 Clonidine HCl (Catapres-Tts 2 Patch) 1 patch Q7D TRANSDERM Last administered on 08/11/16 16:00; Admin Dose 1 PATCH; Start 08/11/16 at 16:00 NADER ANNE August 13, 2016 12:21
[2016-08-13 12:46] LABS: HEMATOCRIT 43.8 % (42.0-52.0); HEMOGLOBIN 14.4 g/dl (14.0-18.0)
--- NOTE | 2016-08-13 15:16 | PN ---
Date/Time of Note Date/Time of Note DATE: 08/13/16 TIME: 15:01 Assessment/Plan VTE Prophylaxis VTE Prophylaxis Intervention: ambulation VTE Contraindication Reason: peripheral vascular disease Lines/Catheters IV Catheter Type (from Nrsg): Peripheral IV Central line still needed: No Urinary Cath still in place: Yes Reason Cath still needed: urinary retention Assessment/Plan Assessment/Plan 1. Acute on chronic respiratory insufficiency,on bronchodilatations and 3l /min 02. 2. Acute GI bleeding with drop of h/h. Now stable. Was on home steroids now 5 mg qd more than 2 months.Now with bloody stool.Also melena. 3. Sepsis-cultures pending. Vanco and zosyn x 2.. 4. End-stage renal disease-on HD-Discuses with . Chronic metabolic acidosis and hypokalemia with hypocapnia.Elev K, will resolve with HD as per . 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 5. Anxiety, depression with dissatisfaction 6. Diabetes type 2-better controlled HGa1C 4.8 7. Osteoarthritis. 8. Anemia of chronic disease-H/H 07/24- Hct now nl after 4 units;no evid gross gi bleeding, stool ob pending.Discussed with for upper and lower GI w/u. Discussed with the patient. 9. Status post multiple units of packed red blood cell transfusions-now getting more.. 10. Weight loss-more than 60lb in 11 months. 11. Hypertension-out of control during respiratory distress. 12. Memory impairment. 13. Major depression. 14. Back pain. 15. Benign prostatic hypertrophy. 16. S/P left forearm a/v shunt placement for dialysis-functions well , not mature yet. 17. S/P right Jugular vein cannulation for dialysis-no signs of infection. 18. Hypoxemia with hypercapnia(Hx of) on home 02 and BIPAP. 19. Anxiety; borderline personality; 20. Excessive thirst. 21. Constipation 22.Chest pain during HD today frequently(s/p 2 angiographies and stenting)cardiology consult. 23.Terminally ill with inability to decide DNR statusinitially. [place] he waNTS EVERYTHING TO BE DONE. He refused to answer. Macario Banegas wHILE IN icu HE ACCEPTED dnr CODE. 24. Bilateral renal cortical cysts. 25. Aortoiliac atherosclerosis. 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 Trace left pleural effusion with basilar atelectasis. 27. Mild splenomegaly. Incomplete data. Cont'd Hospitalization Reason: bleeding. Subjective 24 Hr Interval Summary Free Text/Dictation Severe weakness. I had a blood in a stool. My stool was charcoal like yesterday. They are changing interchangeably. Subjective hx not possible: other (significantly better with 3l02 via n/c.) Constitutional: disoriented, other (Very anxiouse,dissatisfied,unable to relax and difficulty to found the positive side of events, even being appreciative of comming back from imminent . Extensive discussion of his multiple problems and team work of doctors, mainly the science tutor and pulmonary. Agreed for GI w/u.), poor po, requiring O2, No chills, No diaphoresis, No febrile, No improved, No no complaints, No requiring IVF Eyes: discharge ENT: congestion, discharge, pain, sore throat Respiratory: cough, shortness of breath Cardiovascular: lightheadedness, orthopenea, palpitations, paroxysmal nocturnal dyspnea (now better.) Gastrointestinal: constipation, decreased appetite, diarrhea (interchangably.) , nausea Skin: bruising, pruritis Neurologic: headache Psychological: anxiety, depression Exam/Review of Systems Vital Signs Vitals Vital Signs Date Time Temp Pulse Resp B/P Pulse Ox O2 Delivery O2 Flow Rate FiO2 08/13/16 13:55 79 20 98 Nasal Cannula 2.0 08/13/16 11:34 97.7 167/75 08/12/16 06:14 32 Intake and Output 08/12/16 08/12/16 08/13/16 15:00 23:00 07:00 Intake Total 1500 ml 2655 ml 100 ml Output Total 4400 ml 800 ml Balance -2900 ml 1855 ml 100 ml Exam Constitutional: alert, frail, oriented, well developed, No distress, No non-verbal, No obese, No other Psych: anxiety, depression, No confusion, No nl mood/affect, No no complaints, No other, No suicidal Eyes: EOMI, PERRL, nl lids, No fundi, disc, No icteric, No nl conjunctiva, No nl sclera, No other ENMT: No intubated, No mucosa pink and moist, No nl external ears & nose, No nl lips & teeth, No nl nasal mucosa & septum, No other, No tympanic membranes Neck: bruits, jvd, No masses, No non-tender, No nuchal rigidity, No other, No supple, No thyromegaly Respiratory: congested cough, diminished breath sounds, No clear to auscultation, No crackles/rales, No intercostal retraction, No labored breathing, No normal air movement, No other, No respirations, No tactile fremitus, No wheezing Cardiovascular: bruits, jugular venous distention (JVD), murmurs/extra sounds, systolic murmur, No S3, No S4, No diastolic murmur, No edema, No gallop, No irregular rhythm, No nl pulses, No other, No regular rate and rhythm, No rub Gastrointestinal: bowel sounds, distended, No ascites, No firm, No hepatomegaly, No mass, No nl liver, spleen, No non- tender, No other, No rebound or guarding, No soft, No splenomegaly, No surgical scars, No tender Musculoskeletal: joint tenderness, muscle tone, muscle weakness, No nl extremities to inspection, No nl gait and stance, No other, No range of motion, No spine non-tender, No swelling Neurological: nl speech, numbness, No NET SOFTWARE DEVELOPER II-XII intact, No DTR's symmetric, No confused, No focal weakness, No lethargic, No nl mental status, No nl strength, No other, No reflexes, No unresponsive Skin: No diaphoresis, No ecchymosis, No laceration, No nl turgor, No other, No puncture, No rash or lesions Results Result Diagram: 08/13/16 1230 08/13/16 0730 Results 24 hrs Laboratory Tests Test 08/12/16 17:30 08/12/16 18:15 08/13/16 00:58 08/13/16 07:30 Hemoglobin 15.2 15.1 14.5 Hematocrit 45.8 45.6 43.9 Prothrombin Time 15.2 H Prothrombin Time Ratio 1.2 INR International Normalized Ratio 1.19 Activated Partial Thromboplast Time 32.4 Potassium Level 3.7 # 3.6 White Blood Count 11.7 H Red Blood Count 4.90 Mean Corpuscular Volume 89.6 Mean Corpuscular Hemoglobin 29.6 Mean Corpuscular Hemoglobin Concent 33.0 Red Cell Distribution Width 16.2 H Platelet Count 197 Mean Platelet Volume 9.2 Neutrophils % 73.8 Lymphocytes % 14.1 L Monocytes % 9.5 Eosinophils % 1.5 Basophils % 0.3 Nucleated Red Blood Cells % 0.0 Neutrophils # 8.6 H Lymphocytes # 1.6 Monocytes # 1.1 H Eosinophils # 0.2 Basophils # 0.0 Nucleated Red Blood Cells # 0.0 Sodium Level 143 Chloride Level 104 Carbon Dioxide Level 24 Anion Gap 19 H Blood Urea Nitrogen 47 #H Creatinine 7.02 H Glucose Level 125 Calcium Level 9.5 Test 08/13/16 12:30 Hemoglobin 14.4 Hematocrit 43.8 Medications Medications Current Medications Acetaminophen (Tylenol Tab) 650 mg Q6H PRN PO PAIN AND OR ELEVATED TEMP; Start 08/11/16 at 10:30 Carvedilol (Coreg) 12.5 mg BID PO Last administered on 08/12/16 21:26; Admin Dose 12.5 MG; Start 08/11/16 at 21:00 Docusate Sodium (Colace) 100 mg Q12 PO Last administered on 08/12/16 21:25; Admin Dose 100 MG; Start 08/11/16 at 21:00 Minoxidil (Loniten) 5 mg BID PO Last administered on 08/12/16 21:26; Admin Dose 5 MG; Start 08/11/16 at 21:00 Multivit/Ca Carb/ B Cmplx/FA/Prenat (Katlyn-Michael) 1 tab DAILY PO Last administered on 08/12/16 09:42; Admin Dose 1 TAB; Start 08/12/16 at 09:00 Nifedipine (Procardia Xl) 30 mg BID PO Last administered on 08/13/16 08:59; Admin Dose 30 MG; Start 08/11/16 at 21:00 Salmeterol Xinafoate/ Fluticasone (Advair 500/50 Diskus) 1 inh BID INH Last administered on 08/13/16 08:59; Admin Dose 1 INH; Start 08/11/16 at 21:00 Senna (Senokot) 1 tab DAILY PRN PO CONSTIPATION; Start 08/11/16 at 10:30 Tamsulosin HCl (Flomax) 0.4 mg HS PO Last administered on 08/12/16 21:31; Admin Dose 0.4 MG; Start 08/11/16 at 21:00 Tiotropium [place] (Spiriva) 1 inh BID INH Last administered on 08/13/16 09:00 ; Admin Dose 1 INH; Start 08/11/16 at 21:00 Ondansetron HCl (Zofran Inj) 4 mg Q4H PRN IV NAUSEA AND/OR VOMITING; Start 08/11 at 10:30 Acetaminophen/ Hydrocodone Bitart ([place] (5/325)) 1 tab Q6H PRN PO MODERATE PAIN LEVEL 4-6; Start 08/11/16 at 10:30 Morphine Sulfate (morphine) 1 mg Q4H PRN IV SEVERE PAIN LEVEL 7-10; Start at 10:30 Docusate Sodium (Colace) 100 mg Q12H PRN PO CONSTIPATION; Start 08/11/16 at 10: 30 Zolpidem Tartrate (Ambien) 5 mg QHS PRN PO SLEEP; Start 08/11/16 at 10:30 Heparin Sodium (Porcine) (Heparin (5000 Units/0.5 ml)) 5,000 unit Q12 SC Last administered on 08/11/16 20:54; Admin Dose 5,000 UNIT; Start 08/11/16 at 21:00 Lactulose (Enulose) 30 gm Q2 PO Last administered on 08/12/16 05:39; Admin Dose 30 GM; Start 08/11/16 at 17:00; Status Future Hold Pantoprazole (Protonix Iv) 40 mg DAILY@06 IVPB Last administered on 08/13/16 05 :17; Admin Dose 40 MG; Start 08/11/16 at 16:00 Clonidine HCl (Catapres-Tts 2 Patch) 1 patch Q7D TRANSDERM Last administered on 08/11/16 16:00; Admin Dose 1 PATCH; Start 08/11/16 at 16:00 HINA CASTILLO MD August 13, 2016 15:15
[2016-08-13] MEDS ORDERED: PROPOFOL 20 ML ONE (15:50)
[2016-08-13] MEDS ORDERED: DIPHENHYDRAMINE 50 MG INJ IV PRN (16:00)
[2016-08-13] MEDS ORDERED: MIDAZOLAM 1 MG/ML 2 ML INJ IV PRN (16:00)
[2016-08-13] MEDS ORDERED: ONDANSETRON 4 MG INJ IV PRN (16:00)
[2016-08-13] MEDS ORDERED: MEPERIDINE 25 MG INJ IV PRN (16:00)
[2016-08-13] MEDS ORDERED: FENTAnyl 50 MCG/ML VIAL IV PRN (16:00)
[2016-08-13] MEDS ORDERED: METOCLOPRAMIDE 10 MG INJ IV PRN (16:00)
--- NOTE | 2016-08-13 16:17 | GILP ---
DATE OF PROCEDURE: PROCEDURE: Esophagogastroduodenoscopy. PREOPERATIVE DIAGNOSIS: Patient presenting with a history of severe anemia. Rule out peptic ulcer disease and AV malformation of the gastrointestinal tract. POSTOPERATIVE DIAGNOSES: 1. Mild reflux esophagitis. 2. Antral gastritis. 3. Fundal nodular gastritis. DESCRIPTION OF PROCEDURE: After informed written consent was obtained, the patient was asked to lie on the left lateral side. Intravenous anesthesia was given by the anesthesiologist, Dr. Christopher. When the patient became somnolent the Olympus video upper endoscope was introduced into the oropharynx, then into the esophagus, and subsequently into the stomach. Mild reflux esophagitis, [place] cl assification A, was noted. No biopsies were done. The scope at this time was advanced into the sto mach. The antrum of the stomach showed several areas of erythema consistent with mild antral gastri tis. Fundus of the stomach showed a superficial nodular cobblestoning type of mucosal surface. Thi s could be consistent with H. pylori infection. Biopsy was done from the antrum and fundus of the s tomach. Mucosa of the duodenum was examined, which appeared normal up to the end of the third porti on. The scope at this time was withdrawn. On the way out no additional abnormalities were detected and the procedure was terminated. PLAN: Recommend Protonix 40 mg a day in the morning before breakfast for 2 months. Dictated By: HAMZAH ORTEZ/NTS Conf#: [id number] DID#: [id number] CC: HINA CASTILLO MD;*EndCC*
[2016-08-13 18:31] LABS: HEMATOCRIT 47.4 % (42.0-52.0); HEMOGLOBIN 15.4 g/dl (14.0-18.0)
[2016-08-13] MEDS: TAMSULOSIN (SR) 0.4 MG CAP PO SCH (21:00)
[2016-08-13] MEDS: MINOXIDIL 2.5 MG TAB PO SCH (21:00)
--- NOTE | 2016-08-13 22:04 | CONS ---
Date/Time of Note Date/Time of Note DATE: 08/13/16 TIME: 21:59 Assessment/Plan Assessment/Plan Chief Complaint/Hosp Course Anemia - CHRONIC, MULTIFACTORIAL, COMPENSATED AT PRESENT +COMPONENT ACD AND IRON DEFICIENCY CONT TO MONITOR BLOOD COUNT CLOSELY OBSERVE FOR BLEEDING AND HEMOLYSIS TRANSFUSE NEEDED EPO WITH HD post EGD 08.13.16- Mild reflux esophagitis. Antral gastritis. Fundal nodular gastritis. LEUKOCYTOSIS REACTIVE MONITOR CLOSELY NOTE THAT PT IS not ON STEROIDS End-stage renal disease, hemodialysis dependent. Right chest Perm-A-Cath. Chronic obstructive pulmonary disease exacerbation. CHF, mild Interstitial and COPD, rx with daily steroids (po) POST RECENT Acute respiratory failure RECENT Pneumonia Problems: Consultation Date/Type/Reason Admit Date/Time August 11, 2016 at 14:20 Type of Consultation: hemeonc Reason for Consultation anemia leukocytosis 24 HR Interval Summary Free Text/Dictation pt is felling much better today Exam/Review of Systems Vital Signs Vitals Vital Signs Date Time Temp Pulse Resp B/P Pulse Ox O2 Delivery O2 Flow Rate FiO2 08/13/16 20:22 78 08/13/16 20:09 2.0 08/13/16 20:08 22 98 Nasal Cannula 08/13/16 20:04 97.4 151/70 08/12/16 06:14 32 Intake and Output 08/12/16 08/12/16 08/13/16 15:00 23:00 07:00 Intake Total 1500 ml 2655 ml 100 ml Output Total 4400 ml 800 ml Balance -2900 ml 1855 ml 100 ml Exam Constitutional: alert, frail, oriented, well developed, No distress, No non-verbal, No obese, No other Psych: anxiety, depression, No confusion, No nl mood/affect, No no complaints, No other, No suicidal Eyes: EOMI, PERRL, nl lids, No fundi, disc, No icteric, No nl conjunctiva, No nl sclera, No other ENMT: No intubated, No mucosa pink and moist, No nl external ears & nose, No nl lips & teeth, No nl nasal mucosa & septum, No other, No tympanic membranes Neck: bruits, jvd, No masses, No non-tender, No nuchal rigidity, No other, No supple, No thyromegaly Respiratory: congested cough, diminished breath sounds, No clear to auscultation, No crackles/rales, No intercostal retraction, No labored breathing, No normal air movement, No other, No respirations, No tactile fremitus, No wheezing Cardiovascular: bruits, jugular venous distention (JVD), murmurs/extra sounds, systolic murmur, No S3, No S4, No diastolic murmur, No edema, No gallop, No irregular rhythm, No nl pulses, No other, No regular rate and rhythm, No rub Gastrointestinal: bowel sounds, distended, No ascites, No firm, No hepatomegaly, No mass, No nl liver, spleen, No non- tender, No other, No rebound or guarding, No soft, No splenomegaly, No surgical scars, No tender Musculoskeletal: joint tenderness, muscle tone, muscle weakness, No nl extremities to inspection, No nl gait and stance, No other, No range of motion, No spine non-tender, No swelling Neurological: nl speech, numbness, No [employer] II-XII intact, No DTR's symmetric, No confused, No focal weakness, No lethargic, No nl mental status, No nl strength, No other, No reflexes, No unresponsive Skin: No diaphoresis, No ecchymosis, No laceration, No nl turgor, No other, No puncture, No rash or lesions Results Result Diagram: 08/13/16 1810 08/13/16 0730 Results 24 hrs Laboratory Tests Test 08/13/16 00:58 08/13/16 07:30 08/13/16 12:30 08/13/16 18:10 Hemoglobin 15.1 14.5 14.4 15.4 Hematocrit 45.6 43.9 43.8 47.4 White Blood Count 11.7 H Red Blood Count 4.90 Mean Corpuscular Volume 89.6 Mean Corpuscular Hemoglobin 29.6 Mean Corpuscular Hemoglobin Concent 33.0 Red Cell Distribution Width 16.2 H Platelet Count 197 Mean Platelet Volume 9.2 Neutrophils % 73.8 Lymphocytes % 14.1 L Monocytes % 9.5 Eosinophils % 1.5 Basophils % 0.3 Nucleated Red Blood Cells % 0.0 Neutrophils # 8.6 H Lymphocytes # 1.6 Monocytes # 1.1 H Eosinophils # 0.2 Basophils # 0.0 Nucleated Red Blood Cells # 0.0 Sodium Level 143 Potassium Level 3.6 Chloride Level 104 Carbon Dioxide Level 24 Anion Gap 19 H Blood Urea Nitrogen 47 #H Creatinine 7.02 H Glucose Level 125 Calcium Level 9.5 Test 08/13/16 20:53 Bedside Glucose 131 Medications Medications Current Medications Acetaminophen (Tylenol Tab) 650 mg Q6H PRN PO PAIN AND OR ELEVATED TEMP; Start 08/11/16 at 10:30 Carvedilol (Coreg) 12.5 mg BID PO Last administered on 08/12/16 21:26; Admin Dose 12.5 MG; Start 08/11/16 at 21:00 Docusate Sodium (Colace) 100 mg Q12 PO Last administered on 08/12/16 21:25; Admin Dose 100 MG; Start 08/11/16 at 21:00 Minoxidil (Loniten) 5 mg BID PO Last administered on 08/12/16 21:26; Admin Dose 5 MG; Start 08/11/16 at 21:00 Multivit/Ca Carb/ B Cmplx/FA/Prenat ([place]-Michael) 1 tab DAILY PO Last administered on 08/12/16 09:42; Admin Dose 1 TAB; Start 08/12/16 at 09:00 Nifedipine (Procardia Xl) 30 mg BID PO Last administered on 08/13/16 20:54; Admin Dose 30 MG; Start 08/11/16 at 21:00 Salmeterol Xinafoate/ Fluticasone (Advair 500/50 Diskus) 1 inh BID INH Last administered on 08/13/16 08:59; Admin Dose 1 INH; Start 08/11/16 at 21:00 Senna (Senokot) 1 tab DAILY PRN PO CONSTIPATION; Start 08/11/16 at 10:30 Tamsulosin HCl (Flomax) 0.4 mg HS PO Last administered on 08/12/16 21:31; Admin Dose 0.4 MG; Start 08/11/16 at 21:00 Tiotropium [place] (Spiriva) 1 inh BID INH Last administered on 08/13/16 09:00 ; Admin Dose 1 INH; Start 08/11/16 at 21:00 Ondansetron HCl (Zofran Inj) 4 mg Q4H PRN IV NAUSEA AND/OR VOMITING; Start 08/11 at 10:30 Acetaminophen/ Hydrocodone Bitart ([place] (5/325)) 1 tab Q6H PRN PO MODERATE PAIN LEVEL 4-6; Start 08/11/16 at 10:30 Morphine Sulfate (morphine) 1 mg Q4H PRN IV SEVERE PAIN LEVEL 7-10; Start at 10:30 Docusate Sodium (Colace) 100 mg Q12H PRN PO CONSTIPATION; Start 08/11/16 at 10: 30 Zolpidem Tartrate (Ambien) 5 mg QHS PRN PO SLEEP; Start 08/11/16 at 10:30 Heparin Sodium (Porcine) (Heparin (5000 Units/0.5 ml)) 5,000 unit Q12 SC Last administered on 08/11/16 20:54; Admin Dose 5,000 UNIT; Start 08/11/16 at 21:00 Lactulose (Enulose) 30 gm Q2 PO Last administered on 08/12/16 05:39; Admin Dose 30 GM; Start 08/11/16 at 17:00; Status Future Hold Pantoprazole (Protonix Iv) 40 mg DAILY@06 IVPB Last administered on 08/13/16 05 :17; Admin Dose 40 MG; Start 08/11/16 at 16:00 Clonidine HCl (Catapres-Tts 2 Patch) 1 patch Q7D TRANSDERM Last administered on 08/11/16 16:00; Admin Dose 1 PATCH; Start 08/11/16 at 16:00 ANDRE SMITH MD August 13, 2016 22:04
[2016-08-14] VITALS (22 sets, daily range): BP systolic 112–158; BP diastolic 50–78; PULSE 70–92; RESP 18–20
[2016-08-14] MEDS: ALBUTEROL/IPRATROPIUM (NEB) 3 ML AMP HHN SCH ×4 (01:11→20:15)
[2016-08-14 01:15] LABS: HEMATOCRIT 40.6 % (42.0-52.0); HEMOGLOBIN 13.4 g/dl (14.0-18.0)
[2016-08-14] MEDS: PANTOPRAZOLE 40 MG INJ IVPB SCH (06:38)
[2016-08-14] MEDS: LEVOTHYROXINE 125 MCG TAB PO SCH (06:38)
--- NOTE | 2016-08-14 06:55 | GILP ---
DATE OF PROCEDURE: PROCEDURE: Colonoscopy. SURGEON: Hamzah Saucedo MD PREOPERATIVE DIAGNOSIS: The patient presenting with history of severe anemia with hemoglobin dropp ing to 4.7, rule out colorectal neoplasm, arteriovenous malformation, malignancy. POSTOPERATIVE DIAGNOSES: Moderate degree of internal, moderate degree of external hemorrh oids. Rest of the colon appeared normal. Terminal ileum appeared normal. DESCRIPTION OF PROCEDURE: After the informed written consent was obtained, the patient was asked to lie on the left lateral side. The patient was given intravenous anesthesia by anesthesiologist, Dr Jennifer Christopher. When the patient became somnolent, the Olympus video colonoscope was introduced into the rec dina and scope was advanced all the way to the cecum. Entire colon appeared normal. Terminal ileum was examined, which appeared normal. Endoscope at this time was withdrawn. On the way out, mi nimal internal hemorrhoids noted and minimal external hemorrhoids were noted and the procedure was terminated. PLAN: Recommend further workup as indicated. Dictated By: HAMZAH ORTEZ/CAMILO Conf#: [id number] DID#: [id number] CC: HINA CASTILLO MD; HAMZAH SAUCEDO MD;*End*
[2016-08-14 07:25] LABS: POTASSIUM 3.8 mmol/L (3.5-5.1)
[2016-08-14 07:28] LABS: CALCIUM 9.3 mg/dl (8.4-10.2); CREATININE 8.77 mg/dl (0.61-1.24)
--- NOTE | 2016-08-14 07:44 | CONS ---
Date/Time of Note Date/Time of Note DATE: 08/14/16 TIME: 07:42 Assessment/Plan Assessment/Plan Additional Assessment/Plan 1. CKD now on HD, will plan on tomm and consider dc after HD tomm. 2. CHF has resolved. 3. Anemia, stable, endo and colon noted. 4. BP is controlled. Consultation Date/Type/Reason Admit Date/Time August 11, 2016 at 14:20 Type of Consultation: hemeon Detailed Summary Respiratory: No cough, No shortness of breath Cardiovascular: No chest pain Gastrointestinal: no complaints Genitourinary: no complaints Exam/Review of Systems Vital Signs Vitals Vital Signs Date Time Temp Pulse Resp B/P Pulse Ox O2 Delivery O2 Flow Rate FiO2 08/14/16 07:34 97.0 87 18 158/78 98 08/14/16 01:13 2.0 08/14/16 01:12 Nasal Cannula 08/12/16 06:14 32 Intake and Output 08/13/16 08/13/16 08/14/16 15:00 23:00 07:00 Intake Total 365 ml Balance 365 ml Exam Neck: No jvd Respiratory: diminished breath sounds (and few rales are present) Cardiovascular: regular rate and rhythm, No S3 Gastrointestinal: soft Extremities: No edema (and no calf tend) Results Result Diagram: 08/14/16 0045 08/14/16 0553 Results 24 hrs Laboratory Tests Test 08/13/16 12:30 08/13/16 18:10 08/13/16 20:53 08/14/16 00:45 Hemoglobin 14.4 15.4 13.4 L Hematocrit 43.8 47.4 40.6 L Bedside Glucose 131 Test 08/14/16 05:53 08/14/16 07:39 Sodium Level 139 Potassium Level 3.8 Chloride Level 99 Carbon Dioxide Level 23 Anion Gap 21 H Blood Urea Nitrogen 60 H Creatinine 8.77 H Glucose Level 116 Calcium Level 9.3 Bedside Glucose 120 Medications Medications Current Medications Acetaminophen (Tylenol Tab) 650 mg Q6H PRN PO PAIN AND OR ELEVATED TEMP; Start 08/11/16 at 10:30 Carvedilol (Coreg) 12.5 mg BID PO Last administered on 08/12/16t 21:26; Admin Dose 12.5 MG; Start 08/11/16 at 21:00 Docusate Sodium (Colace) 100 mg Q12 PO Last administered on 08/12/16 21:25; Admin Dose 100 MG; Start 08/11/16 at 21:00 Minoxidil (Loniten) 5 mg BID PO Last administered on 08/12/16 21:26; Admin Dose 5 MG; Start 08/11/16 at 21:00 Multivit/Ca Carb/ B Cmplx/FA/Prenat (Katlyn-Michael) 1 tab DAILY PO Last administered on 08/12/16 09:42; Admin Dose 1 TAB; Start 08/12/16 at 09:00 Nifedipine (Procardia Xl) 30 mg BID PO Last administered on 08/13/16 20:54; Admin Dose 30 MG; Start 08/11/16 at 21:00 Salmeterol Xinafoate/ Fluticasone (Advair 500/50 Diskus) 1 inh BID INH Last administered on 08/13/16 08:59; Admin Dose 1 INH; Start 08/11/16 at 21:00 Senna (Senokot) 1 tab DAILY PRN PO CONSTIPATION; Start 08/11/16 at 10:30 Tamsulosin HCl (Flomax) 0.4 mg HS PO Last administered on 08/12/16 21:31; Admin Dose 0.4 MG; Start 08/11/16 at 21:00 Tiotropium [place] (Spiriva) 1 inh BID INH Last administered on 08/13/16 09:00 ; Admin Dose 1 INH; Start 08/11/16 at 21:00 Ondansetron HCl (Zofran Inj) 4 mg Q4H PRN IV NAUSEA AND/OR VOMITING; Start 08/11 at 10:30 Acetaminophen/ Hydrocodone Bitart ([place] (5/325)) 1 tab Q6H PRN PO MODERATE PAIN LEVEL 4-6; Start 08/11/16 at 10:30 Morphine Sulfate (morphine) 1 mg Q4H PRN IV SEVERE PAIN LEVEL 7-10; Start at 10:30 Docusate Sodium (Colace) 100 mg Q12H PRN PO CONSTIPATION; Start 08/11/16 at 10: 30 Zolpidem Tartrate (Ambien) 5 mg QHS PRN PO SLEEP; Start 08/11/16 at 10:30 Heparin Sodium (Porcine) (Heparin (5000 Units/0.5 ml)) 5,000 unit Q12 SC Last administered on 08/11/16 20:54; Admin Dose 5,000 UNIT; Start 08/11/16 at 21:00 Lactulose (Enulose) 30 gm Q2 PO Last administered on 08/12/16 05:39; Admin Dose 30 GM; Start 08/11/16 at 17:00; Status Future Hold Pantoprazole (Protonix Iv) 40 mg DAILY@06 IVPB Last administered on 08/14/16 06 :38; Admin Dose 40 MG; Start 08/11/16 at 16:00 Clonidine HCl (Catapres-Tts 2 Patch) 1 patch Q7D TRANSDERM Last administered on 08/11/16 16:00; Admin Dose 1 PATCH; Start 08/11/16 at 16:00 TRUE GTZ MD August 14, 2016 07:44
[2016-08-14] MEDS: NIFEdipine (XL) 30 MG TAB PO SCH ×2 (07:58→20:35)
[2016-08-14] MEDS: OLOPATADINE 0.1% 5 ML OPH BOTH EYES SCH ×2 (09:00→20:35)
[2016-08-14] MEDS: MINOXIDIL 2.5 MG TAB PO SCH ×2 (09:00→21:00)
[2016-08-14] MEDS: HEPARIN 5,000 UNIT/0.5 ML VIAL SC SCH ×2 (09:00→20:04)
[2016-08-14] MEDS: CALCIUM ACETATE 667 MG CAP PO SCH ×3 (10:02→17:06)
[2016-08-14] MEDS: SALMETEROL/FLUTICASONE 500/50 INHA INH SCH ×2 (10:03→20:32)
[2016-08-14] MEDS: CIPROFLOXACIN 0.3% 2.5 ML OPH BOTH EYES SCH ×2 (10:03→20:33)
[2016-08-14] MEDS: DOCUSATE SODIUM 100 MG CAP PO SCH ×2 (10:04→21:00)
[2016-08-14] MEDS: TIOTROPIUM 18 MCG CAPSULE INHA DEV INH SCH ×2 (10:04→20:32)
[2016-08-14] MEDS: MULTIVIT/CA CARB/B CMPLX/FA TAB PO SCH (10:04)
--- NOTE | 2016-08-14 10:13 | CONS ---
Date/Time of Note Date/Time of Note DATE: 08/14/16 TIME: 10:13 Assessment/Plan Assessment/Plan Chief Complaint/Hosp Course Anemia - CHRONIC, MULTIFACTORIAL, COMPENSATED AT PRESENT +COMPONENT ACD AND IRON DEFICIENCY CONT TO MONITOR BLOOD COUNT CLOSELY OBSERVE FOR BLEEDING AND HEMOLYSIS TRANSFUSE NEEDED EPO WITH HD post EGD 08.13.16- Mild reflux esophagitis. Antral gastritis. Fundal nodular gastritis. LEUKOCYTOSIS REACTIVE MONITOR CLOSELY NOTE THAT PT IS not ON STEROIDS End-stage renal disease, hemodialysis dependent. Right chest Perm-A-Cath. Chronic obstructive pulmonary disease exacerbation. CHF, mild Interstitial and COPD, rx with daily steroids (po) POST RECENT Acute respiratory failure RECENT Pneumonia Problems: Consultation Date/Type/Reason Admit Date/Time August 11, 2016 at 14:20 Type of Consultation: hemeonc Exam/Review of Systems Vital Signs Vitals Vital Signs Date Time Temp Pulse Resp B/P Pulse Ox O2 Delivery O2 Flow Rate FiO2 08/14/16 09:02 85 08/14/16 08:26 20 93 Nasal Cannula 2.0 08/14/16 07:34 97.0 158/78 08/12/16 06:14 32 Intake and Output 08/13/16 08/13/16 08/14/16 14:59 22:59 06:59 Intake Total 365 ml Balance 365 ml Results Result Diagram: 08/14/16 0045 08/14/16 0553 Results 24 hrs Laboratory Tests Test 08/13/16 12:30 08/13/16 18:10 08/13/16 20:53 08/14/16 00:45 Hemoglobin 14.4 15.4 13.4 L Hematocrit 43.8 47.4 40.6 L Bedside Glucose 131 Test 08/14/16 05:53 08/14/16 07:39 Sodium Level 139 Potassium Level 3.8 Chloride Level 99 Carbon Dioxide Level 23 Anion Gap 21 H Blood Urea Nitrogen 60 H Creatinine 8.77 H Glucose Level 116 Calcium Level 9.3 Bedside Glucose 120 Medications Medications Current Medications Acetaminophen (Tylenol Tab) 650 mg Q6H PRN PO PAIN AND OR ELEVATED TEMP; Start 08/11/16 at 10:30 Carvedilol (Coreg) 12.5 mg BID PO Last administered on 08/12/16t 21:26; Admin Dose 12.5 MG; Start 08/11/16 at 21:00 Docusate Sodium (Colace) 100 mg Q12 PO Last administered on 08/14/16 10:04; Admin Dose 100 MG; Start 08/11/16 at 21:00 Minoxidil (Loniten) 5 mg BID PO Last administered on 08/12/16 21:26; Admin Dose 5 MG; Start 08/11/16 at 21:00 Multivit/Ca Carb/ B Cmplx/FA/Prenat ([place]lyn-Michael) 1 tab DAILY PO Last administered on 08/14/16 10:04; Admin Dose 1 TAB; Start 08/12/16 at 09:00 Nifedipine (Procardia Xl) 30 mg BID PO Last administered on 08/13/16 20:54; Admin Dose 30 MG; Start 08/11/16 at 21:00 Salmeterol Xinafoate/ Fluticasone (Advair 500/50 Diskus) 1 inh BID INH Last administered on 08/14/16 10:03; Admin Dose 1 INH; Start 08/11/16 at 21:00 Senna (Senokot) 1 tab DAILY PRN PO CONSTIPATION; Start 08/11/16 at 10:30 Tamsulosin HCl (Flomax) 0.4 mg HS PO Last administered on 08/12/16 21:31; Admin Dose 0.4 MG; Start 08/11/16 at 21:00 Tiotropium [place] (Spiriva) 1 inh BID INH Last administered on 08/14/16 10:04 ; Admin Dose 1 INH; Start 08/11/16 at 21:00 Ondansetron HCl (Zofran Inj) 4 mg Q4H PRN IV NAUSEA AND/OR VOMITING; Start 08/11 at 10:30 Acetaminophen/ Hydrocodone Bitart ([place] (5/325)) 1 tab Q6H PRN PO MODERATE PAIN LEVEL 4-6; Start 08/11/16 at 10:30 Morphine Sulfate (morphine) 1 mg Q4H PRN IV SEVERE PAIN LEVEL 7-10; Start at 10:30 Docusate Sodium (Colace) 100 mg Q12H PRN PO CONSTIPATION; Start 08/11/16 at 10: 30 Zolpidem Tartrate (Ambien) 5 mg QHS PRN PO SLEEP; Start 08/11/16 at 10:30 Heparin Sodium (Porcine) (Heparin (5000 Units/0.5 ml)) 5,000 unit Q12 SC Last administered on 08/11/16 20:54; Admin Dose 5,000 UNIT; Start 08/11/16 at 21:00 Lactulose (Enulose) 30 gm Q2 PO Last administered on 08/12/16 05:39; Admin Dose 30 GM; Start 08/11/16 at 17:00; Status Future Hold Pantoprazole (Protonix Iv) 40 mg DAILY@06 IVPB Last administered on 08/14/16 06 :38; Admin Dose 40 MG; Start 08/11/16 at 16:00 Clonidine HCl (Catapres-Tts 2 Patch) 1 patch Q7D TRANSDERM Last administered on 08/11/16 16:00; Admin Dose 1 PATCH; Start 08/11/16 at 16:00 Ciprofloxacin HCl (Ciloxan 0.3% Oph) 1 drop BID BOTH EYES Last administered on 08/14/16 10:03; Admin Dose 1 DROP; Start 08/14/16 at 09:00 Olopatadine HCl (Patanol 0.1% Oph) 1 drop BID BOTH EYES Last administered on 09:00; Admin Dose 1 DROP; Start 08/14/16 at 09:00 ANDRE SMITH MD August 14, 2016 10:13
[2016-08-14] MEDS: AMIODARONE 200 MG TAB PO SCH (10:40)
--- NOTE | 2016-08-14 13:25 | CONS ---
DATE OF ADMISSION: 08/11/2016 DATE OF CONSULTATION: 08/14/2016 CHIEF COMPLAINT: Ct this time, the patient has no complaints, history of anemia, starting with hem oglobin 4.6, subsequently after transfusion hemoglobin did go up to 14 grams, etc. PAST MEDICAL HISTORY: Upper endoscopy showed gastritis. Colonoscopy showed unremarkable findings e xcept hemorrhoids. At this time, has no history of vomiting or passing blood from the rectum. PHYSICAL EXAMINATION: GENERAL: The patient is alert. VITAL SIGNS: Blood pressure is 140/60, pulse is 89. CARDIOVASCULAR: Normal heart sounds. RESPIRATORY: Normal breath sounds. ABDOMEN: Shows soft abdomen with no palpable masses. No tenderness. LABORATORY DATA: Hemoglobin as mentioned earlier is around 14 grams. Absolute reticulocyte count i s 0.018, haptoglobin is 253, indicating no hemolysis. PLAN: Rule out B12 deficiency, folic acid deficiency, lupus, hypothyroidism. PLAN: Recommend serum B12, folic acid level, STAN level, and thyroid panel. Dictated By: HAMZAH ORTEZ/CAMILO Conf#: [id number] DID#: [id number]
[2016-08-14 15:13] LABS: CARCINOEMBRYONIC ANTIGEN 7.8 ng/ml (0.0-5.0)
[2016-08-14 16:33] LABS: FOLATE > 20.0 ng/ml (2.8-20.0)
--- NOTE | 2016-08-14 19:50 | PN ---
Date/Time of Note Date/Time of Note DATE: 08/14/16 TIME: 19:41 Assessment/Plan VTE Prophylaxis VTE Prophylaxis Intervention: ambulation VTE Contraindication Reason: peripheral vascular disease Lines/Catheters IV Catheter Type (from Nrsg): [place] [employer] line still needed: No Urinary Cath still in place: No Assessment/Plan Assessment/Plan 1. Acute on chronic respiratory insufficiency,on bronchodilatations and 3l /min 02-improved, niow in mild distress.. 2. Acute GI bleeding with drop of h/h. Now stable. Was on home steroids now 5 mg qd more than 2 months.No bloody stool or melena today 3. Sepsis-cultures pending. Vanco and zosyn stopped... 4. End-stage renal disease-on HD-Discuses with . Chronic metabolic acidosis and hypokalemia with hypocapnia.Elev K, will resolve with HD as per . 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 5. Anxiety, depression with dissatisfaction 6. Diabetes type 2-better controlled HGa1C 4.8 7. Osteoarthritis. 8. Anemia of chronic disease-H/H 07/24- Hct now nl after 4 units;no evid gross gi bleeding, stool ob pending. upper(gastritis) and lower GI( Hemmorhoids) w/u. He had 2 gi w/u-ups in [place] done by . 9. Status post multiple units of packed red blood cell transfusions-now getting more.. 10. Weight loss-more than 60lb in 11 months. 11. Hypertension-out of control during respiratory distress. 12. Memory impairment. 13. Major depression. 14. Back pain. 15. Benign prostatic hypertrophy. 16. S/P left forearm a/v shunt placement for dialysis-functions well , not mature yet. 17. S/P right Jugular vein cannulation for dialysis-no signs of infection. 18. Hypoxemia with hypercapnia(Hx of) on home 02 and BIPAP. 19. Anxiety; borderline personality; 20. Excessive thirst. 21. Constipation 22.Chest pain during HD today frequently(s/p 2 angiographies and stenting)cardiology consult. 23.Terminally ill with inability to decide DNR status initially. Mcgraw he waNTS EVERYTHING TO BE DONE. He refused to answer. Macario Banegas wHILE IN icu HE ACCEPTED dnr CODE. Now with full code. 24. Bilateral renal cortical cysts. 25. Aortoiliac atherosclerosis. 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 Trace left pleural effusion with basilar atelectasis. 27. Mild splenomegaly. Incomplete data. Cont'd Hospitalization Reason: hd. Subjective 24 Hr Interval Summary Free Text/Dictation Dry mouth. Itchy eyes with redness. Constitutional: poor po, requiring O2, No chills, No diaphoresis, No disoriented, No febrile, No improved, No no complaints, No other, No requiring IVF Eyes: discharge, redness, visual change, No no complaints, No other, No pain ENT: No bleeding, No congestion, No discharge, No dysphagia, No no complaints, No other, No pain, No sore throat Respiratory: cough, shortness of breath, No no complaints, No other, No pain, No pleuritic pain, No sputum, No wheezing Cardiovascular: chest pain, lightheadedness, orthopenea, palpitations, paroxysmal nocturnal dyspnea Gastrointestinal: blood (not today.), decreased appetite, flatus, passing stool, No constipation, No diarrhea, No nausea, No no complaints, No other, No pain , No vomiting Genitourinary: dysuria, No bleeding, No discharge, No flank pain, No hematuria, No no complaints, No other Musculoskeletal: bone/joint pain, neck pain, No back pain, No no complaints, No other, No restricted range of motion, No swelling Skin: bruising, pruritis, No erythema, No laceration, No no complaints, No other, No rash, No skin lesions Neurologic: dizziness, headache, No confusion, No focal-weakness, No no complaints, No other, No seizure, No syncope Endocrine: dry skin Exam/Review of Systems Vital Signs Vitals Vital Signs Date Time Temp Pulse Resp B/P Pulse Ox O2 Delivery O2 Flow Rate FiO2 08/14/16 18:17 2.0 28 08/14/16 17:20 87 08/14/16 16:01 97.7 18 133/56 97 08/14/16 14:11 Nasal Cannula Intake and Output 08/13/16 08/13/16 08/14/16 15:00 23:00 07:00 Intake Total 365 ml Balance 365 ml Exam Constitutional: alert, distress, oriented, well developed, No frail, No non-verbal, No obese, No other Psych: anxiety, confusion, depression, No nl mood/affect, No no complaints, No other, No suicidal Head: atraumatic, No hematomas, No lacerations, No normocephalic, No other Eyes: EOMI, PERRL, nl lids, No fundi, disc, No icteric, No nl conjunctiva, No nl sclera, No other ENMT: mucosa pink and moist, nl nasal mucosa & septum Neck: bruits, jvd, nuchal rigidity, No masses, No non-tender, No other, No supple, No thyromegaly Respiratory: congested cough, diminished breath sounds, intercostal retraction , labored breathing, tactile fremitus Cardiovascular: bruits, diastolic murmur, irregular rhythm, jugular venous distention (JVD), murmurs/extra sounds, nl pulses, systolic murmur, No S3, No S4, No edema, No gallop, No other, No regular rate and rhythm, No rub Gastrointestinal: bowel sounds, distended, non-tender Genitourinary - Male: CVA tenderness, nl penis, nl scrotum, No discharge, No other Neurological: DRAWER IN DOBBY LOOM II-XII intact (decreased ghearing.), numbness Skin: ecchymosis, rash or lesions, No diaphoresis, No laceration, No nl turgor, No other, No puncture Lymph: No enlarged, No nl lymph nodes, No nontender, No other Results Result Diagram: 08/14/16 0045 08/14/16 0553 Results 24 hrs Laboratory Tests Test 08/13/16 20:53 08/14/16 00:45 08/14/16 05:53 08/14/16 07:39 Bedside Glucose 131 120 Hemoglobin 13.4 L Hematocrit 40.6 L Sodium Level 139 Potassium Level 3.8 Chloride Level 99 Carbon Dioxide Level 23 Anion Gap 21 H Blood Urea Nitrogen 60 H Creatinine 8.77 H Glucose Level 116 Calcium Level 9.3 Test 08/14/16 13:50 08/14/16 14:12 Carcinoembryonic Antigen 7.8 H Vitamin B12 Level 975 H Folate > 20.0 H Bedside Glucose 98 Medications Medications Current Medications Acetaminophen (Tylenol Tab) 650 mg Q6H PRN PO PAIN AND OR ELEVATED TEMP; Start 08/11/16 at 10:30 Carvedilol (Coreg) 12.5 mg BID PO Last administered on 08/12/16 21:26; Admin Dose 12.5 MG; Start 08/11/16 at 21:00 Docusate Sodium (Colace) 100 mg Q12 PO Last administered on 08/14/16 10:04; Admin Dose 100 MG; Start 08/11/16 at 21:00 Minoxidil (Loniten) 5 mg BID PO Last administered on 08/12/16 21:26; Admin Dose 5 MG; Start 08/11/16 at 21:00 Multivit/Ca Carb/ B Cmplx/FA/Prenat ([place]-Michael) 1 tab DAILY PO Last administered on 08/14/16 10:04; Admin Dose 1 TAB; Start 08/12/16 at 09:00 Nifedipine (Procardia Xl) 30 mg BID PO Last administered on 08/13/16 20:54; Admin Dose 30 MG; Start 08/11/16 at 21:00 Salmeterol Xinafoate/ Fluticasone (Advair 500/50 Diskus) 1 inh BID INH Last administered on 08/14/16 10:03; Admin Dose 1 INH; Start 08/11/16 at 21:00 Senna (Senokot) 1 tab DAILY PRN PO CONSTIPATION; Start 08/11/16 at 10:30 Tamsulosin HCl (Flomax) 0.4 mg HS PO Last administered on 08/12/16 21:31; Admin Dose 0.4 MG; Start 08/11/16 at 21:00 Tiotropium [place] (Spiriva) 1 inh BID INH Last administered on 08/14/16 10:04 ; Admin Dose 1 INH; Start 08/11/16 at 21:00 Ondansetron HCl (Zofran Inj) 4 mg Q4H PRN IV NAUSEA AND/OR VOMITING; Start 08/11 at 10:30 Acetaminophen/ Hydrocodone Bitart ([place] (5/325)) 1 tab Q6H PRN PO MODERATE PAIN LEVEL 4-6; Start 08/11/16 at 10:30 Morphine Sulfate (morphine) 1 mg Q4H PRN IV SEVERE PAIN LEVEL 7-10; Start at 10:30 Docusate Sodium (Colace) 100 mg Q12H PRN PO CONSTIPATION; Start 08/11/16 at 10: 30 Zolpidem Tartrate (Ambien) 5 mg QHS PRN PO SLEEP; Start 08/11/16 at 10:30 Heparin Sodium (Porcine) (Heparin (5000 Units/0.5 ml)) 5,000 unit Q12 SC Last administered on 08/11/16 20:54; Admin Dose 5,000 UNIT; Start 08/11/16 at 21:00 Lactulose (Enulose) 30 gm Q2 PO Last administered on 08/12/16 05:39; Admin Dose 30 GM; Start 08/11/16 at 17:00; Status Future Hold Pantoprazole (Protonix Iv) 40 mg DAILY@06 IVPB Last administered on 08/14/16 06 :38; Admin Dose 40 MG; Start 08/11/16 at 16:00 Clonidine HCl (Catapres-Tts 2 Patch) 1 patch Q7D TRANSDERM Last administered on 08/11/16 16:00; Admin Dose 1 PATCH; Start 08/11/16 at 16:00 Ciprofloxacin HCl (Ciloxan 0.3% Oph) 1 drop BID BOTH EYES Last administered on 08/14/16 10:03; Admin Dose 1 DROP; Start 08/14/16 at 09:00 Olopatadine HCl (Patanol 0.1% Oph) 1 drop BID BOTH EYES Last administered on 09:00; Admin Dose 1 DROP; Start 08/14/16 at 09:00 Amiodarone HCl (Cordarone) 200 mg DAILY PO Last administered on 08/14/16 10:40 ; Admin Dose 200 MG; Start 08/14/16 at 10:30 HINA CASTILLO MD August 14, 2016 19:50
[2016-08-14] MEDS: TAMSULOSIN (SR) 0.4 MG CAP PO SCH (21:00)
[2016-08-15] VITALS (14 sets, daily range): BP systolic 110–163; BP diastolic 47–76; PULSE 70–87; RESP 19–20
[2016-08-15] MEDS: ALBUTEROL/IPRATROPIUM (NEB) 3 ML AMP HHN SCH ×3 (01:00→13:34)
[2016-08-15] MEDS: PANTOPRAZOLE 40 MG INJ IVPB SCH (06:18)
[2016-08-15] MEDS: LEVOTHYROXINE 125 MCG TAB PO SCH (06:19)
[2016-08-15 06:51] LABS: ADD SCAN DIFF NO
[2016-08-15 06:56] LABS: BASOPHILS % 0.3 % (0.0-2.0); EOSINOPHILS # 0.2 10^3/ul (0.0-0.5); EOSINOPHILS % 1.9 % (0.0-7.0); HEMATOCRIT 43.4 % (42.0-52.0); HEMOGLOBIN 14.2 g/dl (14.0-18.0); LYMPHOCYTES % 17.3 % (15.0-51.0); MEAN CORPUSCULAR HEMOGLOBIN 29.1 pg (29.0-33.0); MEAN CORPUSCULAR HGB CONC 32.7 g/dl (32.0-37.0); MEAN CORPUSCULAR VOLUME 88.9 fl (82.0-101.0); MEAN PLATELET VOLUME 9.3 fl (7.4-10.4); MONOCYTE # 1.1 10^3/ul (0.3-0.9); MONOCYTES % 9.6 % (0.0-11.0); NEUTROPHIL # 8.1 10^3/ul (1.6-7.5); NEUTROPHILS % 69.8 % (39.0-77.0); PLATELET COUNT 201 10^3/UL (140-415); RED BLOOD COUNT 4.88 10^6/ul (4.70-6.10); RED CELL DISTRIBUTION WIDTH 15.3 % (11.5-14.5); WHITE BLOOD COUNT 11.6 10^3/ul (4.8-10.8)
[2016-08-15 07:23] LABS: CALCIUM 9.3 mg/dl (8.4-10.2); CREATININE 7.16 mg/dl (0.61-1.24); POTASSIUM 3.9 mmol/L (3.5-5.1)
[2016-08-15] MEDS: HEPARIN 5,000 UNIT/0.5 ML VIAL SC SCH (09:00)
[2016-08-15] MEDS: NIFEdipine (XL) 30 MG TAB PO SCH (09:00)
[2016-08-15] MEDS: MINOXIDIL 2.5 MG TAB PO SCH (09:00)
[2016-08-15] MEDS: AMIODARONE 200 MG TAB PO SCH (09:00)
--- NOTE | 2016-08-15 09:36 | PDOCDIS ---
Discharge Instructions CONDITION Patient Condition: Guarded HOME CARE INSTRUCTIONS: Diet Instructions: 2gm NaSpecial Diet: Regular ACTIVITY: Activity Restrictions: Slowly Increase Activity Bathing Restrictions: Tub Bath FOLLOW UP/APPOINTMENTS Appointments HD by nephrology schedule. SCHOOL/WORK RELEASE May return to School/Work on: August 15, 2016 School/Work Release Comment: none. HINA CASTILLO MD August 15, 2016 09:36
--- NOTE | 2016-08-15 09:36 | CONS ---
Date/Time of Note Date/Time of Note DATE: 08/15/16 TIME: 09:33 Assessment/Plan Assessment/Plan Additional Assessment/Plan 1. CKD now on HD and tolerating it well 2. CHF resolved 3. Can DC after HD today if OK with IM Consultation Date/Type/Reason Admit Date/Time August 11, 2016 at 14:20 Type of Consultation: hemeonc Detailed Summary Respiratory: No cough, No shortness of breath Cardiovascular: No chest pain Gastrointestinal: no complaints Genitourinary: no complaints Exam/Review of Systems Vital Signs Vitals Vital Signs Date Time Temp Pulse Resp B/P Pulse Ox O2 Delivery O2 Flow Rate FiO2 08/15/16 08:19 87 08/15/16 07:51 18 95 Nasal Cannula 2.0 08/15/16 07:28 98.2 155/70 08/15/16 01:16 28 Intake and Output 08/14/16 08/14/16 08/15/16 15:00 23:00 07:00 Intake Total 800 ml 700 ml Output Total 3400 ml Balance -2600 ml 700 ml Exam Neck: jvd Respiratory: No clear to auscultation Cardiovascular: regular rate and rhythm Gastrointestinal: soft Extremities: No edema (and no calf tend) Results Result Diagram: 08/15/16 0610 08/15/16 0610 Results 24 hrs Laboratory Tests Test 08/14/16 13:50 08/14/16 14:12 08/15/16 06:10 Carcinoembryonic Antigen 7.8 H Vitamin B12 Level 975 H Folate > 20.0 H Bedside Glucose 98 White Blood Count 11.6 H Red Blood Count 4.88 Hemoglobin 14.2 Hematocrit 43.4 Mean Corpuscular Volume 88.9 Mean Corpuscular Hemoglobin 29.1 Mean Corpuscular Hemoglobin Concent 32.7 Red Cell Distribution Width 15.3 H Platelet Count 201 Mean Platelet Volume 9.3 Neutrophils % 69.8 Lymphocytes % 17.3 Monocytes % 9.6 Eosinophils % 1.9 Basophils % 0.3 Nucleated Red Blood Cells % 0.0 Neutrophils # 8.1 H Lymphocytes # 2.0 Monocytes # 1.1 H Eosinophils # 0.2 Basophils # 0.0 Nucleated Red Blood Cells # 0.0 Sodium Level 138 Potassium Level 3.9 Chloride Level 101 Carbon Dioxide Level 24 Anion Gap 17 H Blood Urea Nitrogen 49 #H Creatinine 7.16 H Glucose Level 104 Calcium Level 9.3 Medications Medications Current Medications Acetaminophen (Tylenol Tab) 650 mg Q6H PRN PO PAIN AND OR ELEVATED TEMP; Start 08/11/16 at 10:30 Carvedilol (Coreg) 12.5 mg BID PO Last administered on 08/12/16 21:26; Admin Dose 12.5 MG; Start 08/11/16 at 21:00 Docusate Sodium (Colace) 100 mg Q12 PO Last administered on 08/14/16 10:04; Admin Dose 100 MG; Start 08/11/16 at 21:00 Minoxidil (Loniten) 5 mg BID PO Last administered on 08/12/16 21:26; Admin Dose 5 MG; Start 08/11/16 at 21:00 Multivit/Ca Carb/ B Cmplx/FA/Prenat (Katlyn-Michael) 1 tab DAILY PO Last administered on 08/14/16 10:04; Admin Dose 1 TAB; Start 08/12/16 at 09:00 Nifedipine (Procardia Xl) 30 mg BID PO Last administered on 08/14/16 20:35; Admin Dose 30 MG; Start 08/11/16 at 21:00 Salmeterol Xinafoate/ Fluticasone (Advair 500/50 Diskus) 1 inh BID INH Last administered on 08/14/16 20:32; Admin Dose 1 INH; Start 08/11/16 at 21:00 Senna (Senokot) 1 tab DAILY PRN PO CONSTIPATION; Start 08/11/16 at 10:30 Tamsulosin HCl (Flomax) 0.4 mg HS PO Last administered on 08/12/16 21:31; Admin Dose 0.4 MG; Start 08/11/16 at 21:00 Tiotropium [place] (Spiriva) 1 inh BID INH Last administered on 08/14/16 20:32 ; Admin Dose 1 INH; Start 08/11/16 at 21:00 Ondansetron HCl (Zofran Inj) 4 mg Q4H PRN IV NAUSEA AND/OR VOMITING; Start 08/11 at 10:30 Acetaminophen/ Hydrocodone Bitart ([place] (5/325)) 1 tab Q6H PRN PO MODERATE PAIN LEVEL 4-6; Start 08/11/16 at 10:30 Morphine Sulfate (morphine) 1 mg Q4H PRN IV SEVERE PAIN LEVEL 7-10; Start at 10:30 Docusate Sodium (Colace) 100 mg Q12H PRN PO CONSTIPATION; Start 08/11/16 at 10: 30 Zolpidem Tartrate (Ambien) 5 mg QHS PRN PO SLEEP; Start 08/11/16 at 10:30 Heparin Sodium (Porcine) (Heparin (5000 Units/0.5 ml)) 5,000 unit Q12 SC Last administered on 08/11/16 20:54; Admin Dose 5,000 UNIT; Start 08/11/16 at 21:00 Lactulose (Enulose) 30 gm Q2 PO Last administered on 08/12/16 05:39; Admin Dose 30 GM; Start 08/11/16 at 17:00; Status Future Hold Pantoprazole (Protonix Iv) 40 mg DAILY@06 IVPB Last administered on 08/15/16 06 :18; Admin Dose 40 MG; Start 08/11/16 at 16:00 Clonidine HCl (Catapres-Tts 2 Patch) 1 patch Q7D TRANSDERM Last administered on 08/11/16 16:00; Admin Dose 1 PATCH; Start 08/11/16 at 16:00 Ciprofloxacin HCl (Ciloxan 0.3% Oph) 1 drop BID BOTH EYES Last administered on 08/14/16 20:33; Admin Dose 1 DROP; Start 08/14/16 at 09:00 Olopatadine HCl (Patanol 0.1% Oph) 1 drop BID BOTH EYES Last administered on 20:35; Admin Dose 1 DROP; Start 08/14/16 at 09:00 Amiodarone HCl (Cordarone) 200 mg DAILY PO Last administered on 08/14/16 10:40 ; Admin Dose 200 MG; Start 08/14/16 at 10:30 TRUE GTZ MD August 15, 2016 09:35
[2016-08-15] MEDS: MULTIVIT/CA CARB/B CMPLX/FA TAB PO SCH (09:41)
[2016-08-15] MEDS: DOCUSATE SODIUM 100 MG CAP PO SCH (09:41)
[2016-08-15] MEDS: CALCIUM ACETATE 667 MG CAP PO SCH (09:41)
[2016-08-15] MEDS: TIOTROPIUM 18 MCG CAPSULE INHA DEV INH SCH (09:42)
[2016-08-15] MEDS: CIPROFLOXACIN 0.3% 2.5 ML OPH BOTH EYES SCH (09:43)
[2016-08-15] MEDS: OLOPATADINE 0.1% 5 ML OPH BOTH EYES SCH (09:43)
[2016-08-15] MEDS: SALMETEROL/FLUTICASONE 500/50 INHA INH SCH (09:43)
--- NOTE | 2016-08-15 11:01 | CONS ---
Date/Time of Note Date/Time of Note DATE: 08/15/16 TIME: 11:00 Consult Date/Type/Reason Admit Date/Time August 11, 2016 at 14:20 Initial Consult Date Type of Consultation: pulmonary Subjective Comfortable this morning no significant shortness of breath continues hemodialysis Objective Vital Signs Date Time Temp Pulse Resp B/P Pulse Ox O2 Delivery O2 Flow Rate FiO2 08/15/16 10:30 75 08/15/16 09:00 16 08/15/16 07:51 95 Nasal Cannula 2.0 08/15/16 07:28 98.2 155/70 08/15/16 01:16 28 Intake and Output 08/14/16 08/14/16 08/15/16 15:00 23:00 07:00 Intake Total 800 ml 700 ml Output Total 3400 ml Balance -2600 ml 700 ml Exam GENERAL: Elderly [place] gentleman comfortable at rest no acute distress VITAL SIGNS: per chart NECK: Supple. No JVD or lymphadenopathy. CARDIAC EXAM: S1, S2. No added sounds or murmurs. CHEST: clear bilaterally, No added sounds, rales or wheezes ABDOMEN: Soft, nontender. No guarding or rebound. EXTREMITIES: No cyanosis, clubbing or edema. NEUROLOGIC: Generalized weakness. No focal deficits. Results/Medications Result Diagram: 08/15/16 0610 08/15/16 0610 Results 24 hrs Laboratory Tests Test 08/14/16 13:50 08/14/16 14:12 08/15/16 06:10 Carcinoembryonic Antigen 7.8 H Vitamin B12 Level 975 H Folate > 20.0 H Bedside Glucose 98 White Blood Count 11.6 H Red Blood Count 4.88 Hemoglobin 14.2 Hematocrit 43.4 Mean Corpuscular Volume 88.9 Mean Corpuscular Hemoglobin 29.1 Mean Corpuscular Hemoglobin Concent 32.7 Red Cell Distribution Width 15.3 H Platelet Count 201 Mean Platelet Volume 9.3 Neutrophils % 69.8 Lymphocytes % 17.3 Monocytes % 9.6 Eosinophils % 1.9 Basophils % 0.3 Nucleated Red Blood Cells % 0.0 Neutrophils # 8.1 H Lymphocytes # 2.0 Monocytes # 1.1 H Eosinophils # 0.2 Basophils # 0.0 Nucleated Red Blood Cells # 0.0 Sodium Level 138 Potassium Level 3.9 Chloride Level 101 Carbon Dioxide Level 24 Anion Gap 17 H Blood Urea Nitrogen 49 #H Creatinine 7.16 H Glucose Level 104 Calcium Level 9.3 Medications Current Medications Acetaminophen (Tylenol Tab) 650 mg Q6H PRN PO PAIN AND OR ELEVATED TEMP; Start 08/11/16 at 10:30 Carvedilol (Coreg) 12.5 mg BID PO Last administered on 08/12/16 21:26; Admin Dose 12.5 MG; Start 08/11/16 at 21:00 Docusate Sodium (Colace) 100 mg Q12 PO Last administered on 08/15/16 09:41; Admin Dose 100 MG; Start 08/11/16 at 21:00 Minoxidil (Loniten) 5 mg BID PO Last administered on 08/12/16 21:26; Admin Dose 5 MG; Start 08/11/16 at 21:00 Multivit/Ca Carb/ B Cmplx/FA/Prenat (Katlyn-Michael) 1 tab DAILY PO Last administered on 08/15/16 09:41; Admin Dose 1 TAB; Start 08/12/16 at 09:00 Nifedipine (Procardia Xl) 30 mg BID PO Last administered on 08/14/16 20:35; Admin Dose 30 MG; Start 08/11/16 at 21:00 Salmeterol Xinafoate/ Fluticasone (Advair 500/50 Diskus) 1 inh BID INH Last administered on 08/15/16 09:43; Admin Dose 1 INH; Start 08/11/16 at 21:00 Senna (Senokot) 1 tab DAILY PRN PO CONSTIPATION; Start 08/11/16 at 10:30 Tamsulosin HCl (Flomax) 0.4 mg HS PO Last administered on 08/12/16 21:31; Admin Dose 0.4 MG; Start 08/11/16 at 21:00 Tiotropium [place] (Spiriva) 1 inh BID INH Last administered on 08/15/16 09:42 ; Admin Dose 1 INH; Start 08/11/16 at 21:00 Ondansetron HCl (Zofran Inj) 4 mg Q4H PRN IV NAUSEA AND/OR VOMITING; Start 08/11 at 10:30 Acetaminophen/ Hydrocodone Bitart ([place] (5/325)) 1 tab Q6H PRN PO MODERATE PAIN LEVEL 4-6; Start 08/11/16 at 10:30 Morphine Sulfate (morphine) 1 mg Q4H PRN IV SEVERE PAIN LEVEL 7-10; Start at 10:30 Docusate Sodium (Colace) 100 mg Q12H PRN PO CONSTIPATION; Start 08/11/16 at 10: 30 Zolpidem Tartrate (Ambien) 5 mg QHS PRN PO SLEEP; Start 08/11/16 at 10:30 Heparin Sodium (Porcine) (Heparin (5000 Units/0.5 ml)) 5,000 unit Q12 SC Last administered on 08/11/16 20:54; Admin Dose 5,000 UNIT; Start 08/11/16 at 21:00 Lactulose (Enulose) 30 gm Q2 PO Last administered on 08/12/16 05:39; Admin Dose 30 GM; Start 08/11/16 at 17:00; Status Future Hold Pantoprazole (Protonix Iv) 40 mg DAILY@06 IVPB Last administered on 08/15/16 06 :18; Admin Dose 40 MG; Start 08/11/16 at 16:00 Clonidine HCl (Catapres-Tts 2 Patch) 1 patch Q7D TRANSDERM Last administered on 08/11/16 16:00; Admin Dose 1 PATCH; Start 08/11/16 at 16:00 Ciprofloxacin HCl (Ciloxan 0.3% Oph) 1 drop BID BOTH EYES Last administered on 08/15/16 09:43; Admin Dose 1 DROP; Start 08/14/16 at 09:00 Olopatadine HCl (Patanol 0.1% Oph) 1 drop BID BOTH EYES Last administered on 09:43; Admin Dose 1 DROP; Start 08/14/16 at 09:00 Amiodarone HCl (Cordarone) 200 mg DAILY PO Last administered on 08/14/16 10:40 ; Admin Dose 200 MG; Start 08/14/16 at 10:30 Assessment/Plan Chief Complaint/Hosp Course Assessment 1. Congestive cardiac failure with hypoxemic respiratory failure 2. Volume overload from end-stage renal failure on hemodialysis Plan 1. Continue hemodialysis as tolerated with volume removal 2. Supplemental O2 3. Agree with discharge planning Problems: CARLEEN MORGAN MD, FCCP August 15, 2016 11:01
--- NOTE | 2016-08-15 23:39 | CONS ---
Date/Time of Note Date/Time of Note DATE: 08/15/16 TIME: 23:39 Assessment/Plan Assessment/Plan Chief Complaint/Hosp Course Anemia - CHRONIC, MULTIFACTORIAL, COMPENSATED AT PRESENT +COMPONENT ACD AND IRON DEFICIENCY CONT TO MONITOR BLOOD COUNT CLOSELY OBSERVE FOR BLEEDING AND HEMOLYSIS TRANSFUSE NEEDED EPO WITH HD post EGD 08.13.16- Mild reflux esophagitis. Antral gastritis. Fundal nodular gastritis. LEUKOCYTOSIS REACTIVE MONITOR CLOSELY NOTE THAT PT IS not ON STEROIDS End-stage renal disease, hemodialysis dependent. Right chest Perm-A-Cath. Chronic obstructive pulmonary disease exacerbation. CHF, mild Interstitial and COPD, rx with daily steroids (po) POST RECENT Acute respiratory failure RECENT Pneumonia Problems: Consultation Date/Type/Reason Admit Date/Time August 11, 2016 at 14:20 Initial Consult Date 08/11/16 Type of Consultation: HEMEONC Reason for Consultation ANEMIA Referring Provider: HINA CASTILLO MD 24 HR Interval Summary Free Text/Dictation FELLING BETTER NO BLEEDING Exam/Review of Systems Vital Signs Vitals Vital Signs Date Time Temp Pulse Resp B/P Pulse Ox O2 Delivery O2 Flow Rate FiO2 08/15/16 13:38 2.0 08/15/16 13:36 90 18 94 21 08/15/16 11:17 98.2 143/76 08/15/16 08:20 Nasal Cannula Intake and Output 08/14/16 08/14/16 08/15/16 15:00 23:00 07:00 Intake Total 800 ml 700 ml Output Total 3400 ml Balance -2600 ml 700 ml Exam GENERAL: Elderly [place] gentleman comfortable at rest no acute distress VITAL SIGNS: per chart NECK: Supple. No JVD or lymphadenopathy. CARDIAC EXAM: S1, S2. No added sounds or murmurs. CHEST: clear bilaterally, No added sounds, rales or wheezes ABDOMEN: Soft, nontender. No guarding or rebound. EXTREMITIES: No cyanosis, clubbing or edema. NEUROLOGIC: Generalized weakness. No focal deficits. Results Result Diagram: 08/15/16 0610 08/15/16 0610 Results 24 hrs Laboratory Tests Test 08/15/16 06:10 White Blood Count 11.6 H Red Blood Count 4.88 Hemoglobin 14.2 Hematocrit 43.4 Mean Corpuscular Volume 88.9 Mean Corpuscular Hemoglobin 29.1 Mean Corpuscular Hemoglobin Concent 32.7 Red Cell Distribution Width 15.3 H Platelet Count 201 Mean Platelet Volume 9.3 Neutrophils % 69.8 Lymphocytes % 17.3 Monocytes % 9.6 Eosinophils % 1.9 Basophils % 0.3 Nucleated Red Blood Cells % 0.0 Neutrophils # 8.1 H Lymphocytes # 2.0 Monocytes # 1.1 H Eosinophils # 0.2 Basophils # 0.0 Nucleated Red Blood Cells # 0.0 Sodium Level 138 Potassium Level 3.9 Chloride Level 101 Carbon Dioxide Level 24 Anion Gap 17 H Blood Urea Nitrogen 49 #H Creatinine 7.16 H Glucose Level 104 Calcium Level 9.3 ANDRE SMITH MD August 15, 2016 23:39
[2016-08-17 14:34] LABS: ANA SCREEN NEGATIVE (NEGATIVE)
--- NOTE | 2016-09-03 09:42 | DS ---
Date/Time of Note Date/Time of Note DATE: 09/03/16 TIME: 09:38 Discharge Summary Admission/Discharge Info Admit Date/Time August 11, 2016 at 14:20 Discharge Date/Time August 15, 2016 at 14:15 Final Diagnosis 1. Acute on chronic respiratory insufficiency,on bronchodilatations and 02.;Improved on BIPAP and HD and PRBC transfusion. 2. Acute GI bleeding with drop of h/h. Was on home steroids now 5 mg qd more than 2 months. Controlled- stable. 3. Sepsis-cultures pending after vanco and zosyn- no more signs of sepsis. 4. End-stage renal disease-on HD-Discuses with .Chronic metabolic acidosis and hypokalemia with hypocapnia. 5. Anxiety, depression with dissatisfaction 6. Diabetes type 2-better controlled 7. Osteoarthritis. 8. Anemia of chronic disease-H/H 07/24 9. Status post multiple units of packed red blood cell transfusions-now getting more.. 10. Weight loss-more than 60lb in 11 months. 11. Hypertension-out of control during respiratory distress. 12. Memory impairment. 13. Major depression. 14. Back pain. 15. Benign prostatic hypertrophy. 16. S/P left forearm a/v shunt placement for dialysis-functions well , not mature yet. 17. S/P right Jugular vein cannulation for dialysis-no signs of infection. 18. Hypoxemia with hypercapnia(Hx of) on home 02 and BIPAP. 19. Anxiety; borderline personality; 20. Excessive thirst. 21. Constipation 22.Chest pain during HD today frequently(s/p 2 angiographies and stenting)cardiology consult. 23.Terminally ill with inability to deside DNR status. He refused to answer. Macario Banegas received a modesto from RN that he agreed for DNR and DNI. 24.Incomplete data. Procedures GI w/u. HD. PRBC Transfusions. BIPAP. Hospital Course Anemia - CHRONIC, MULTIFACTORIAL, severe HX ANEMIA WITH +COMPONENT ACD AND IRON DEFICIENCY TRANSFUSE PRBC MONITOR BLOOD COUNT CLOSELY OBSERVE FOR BLEEDING AND HEMOLYSIS TRANSFUSE NEEDED EPO WITH HD post EGD 5.4.17- Mild reflux esophagitis. Antral gastritis. Fundal nodular gastritis. LEUKOCYTOSIS REACTIVE MONITOR CLOSELY NOTE THAT PT IS not ON STEROIDS End-stage renal disease, hemodialysis dependent. Right chest Perm-A-Cath. Chronic obstructive pulmonary disease exacerbation. CHF, mild Interstitial and COPD, rx with daily steroids (po) POST RECENT Acute respiratory failure RECENT Pneumonia Home Meds Active Scripts Tiotropium [place]* (Spiriva*) 18 Mcg Cap.w.dev, 1 INH INH BID for 30 Days, #60 CAP Prov:HINA CASTILLO MD 04/28/16 Salmeterol Xinaf-Fluticasone* (Advair*) 500/50 Diskus Inhaler, 1 INH INH BID for 30 Days, #1 CAP.EC Prov:HINA CASTILLO MD 04/28/16 Pantoprazole* (Pantoprazole*) 40 Mg Tablet.dr, 40 MG PO DAILY@06 for 30 Days, # 30 BOX Prov:HINA CASTILLO MD 04/28/16 Nifedipine (Procardia Xl) 30 Mg Tab.er.24, 30 MG PO BID for 30 Days, #30 TAB Prov:HINA CASTILLO MD 04/28/16 Minoxidil* (Lonitin*) 2.5 Mg Tab, 5 MG PO BID for 30 Days, #60 TAB Prov:HINA CASTILLO MD 04/28/16 [Ipratropium 0.02% (Neb)] 0.5 MG/2.5 ML NEBU No Conflict Check, 0.5 MG HHN Q6H RESP THERAPY for 30 Days, #90 CAP Prov:HINA CASTILLO MD 04/28/16 Clonidine Hcl* (Clonidine Hcl*) 0.1 Mg Tab, 0.1 MG PO TID for 30 Days, #90 TAB Prov:HINA CASTILLO MD 04/28/16 Carvedilol* (Carvedilol*) 12.5 Mg Tablet, 12.5 MG PO BID for 30 Days, #60 TAB Prov:HINA CASTILLO MD 04/28/16 Albuterol Sulfate* (Albuterol Sulfate* Neb) 0.083%-3 Ml Neb, 2.5 MG HHN Q6HWA RESP THERAPY for 30 Days, #90 BLIST PACK Prov:HINA CASTILLO MD 04/28/16 Acetaminophen* (Tylenol*) 325 Mg Tablet, 650 MG PO Q6H Y for PAIN AND OR ELEVATED TEMP for 30 Days, #90 TAB Prov:HINA CASTILLO MD 04/28/16 Reported Medications [Heparin 5000U/0.5ML] No Conflict Check, 0.5 ML SC Q12 06/02/16 Prednisolone* (Prelone*) 15 Mg/5 Ml Solution, 15 MG PO DAILY, ML 06/02/16 Multivit/Ca Carb/B Cmplx/Fa* (Katlyn-Michael*) 1 Tab Tab, 1 TAB PO DAILY, TAB 06/02/16 Insulin Aspart (Novolog) 100 Unit/1 Ml Cartridge, 0 SQ SLIDING SCALE BEFORE MEALS; 200-250=2 UNITS, 251-300=4 UNITS, 301-350=6 UNITS, 351-400=8 UNITS,>400=10 UNITS AND CALL 06/02/16 Valsartan* (Diovan*) 160 Mg Tablet, 320 MG PO DAILY, TAB HOLD IF SBP<110;HR 06/02/16 Docusate Sodium* (Docusate Sodium*) 100 Mg Capsule, 100 MG PO Q12, #60 CAP 06/02/16 Calcium Acetate* (Calcium Acetate*) 667 Mg Capsule, 667 MG PO WITH MEALS, #30 CAP 06/02/16 Sennosides* (Senna Lax*) 8.6 Mg Tablet, 1 TAB PO DAILY Y for CONSTIPATION, TAB 01/13/16 Levalbuterol* (Xopenex* HFA) 15 Gm Inha, 2 PUFFS INH Q4H Y for WHEEZING AND SOB , INHALER 01/13/16 Tamsulosin Hcl* (Tamsulosin Hcl*) 0.4 Mg Cap.er.24h, 0.4 MG PO HS, CAP 11/28/15 Levothyroxine Sodium* (Levothyroxine Sodium*) 125 Mcg Tablet, 125 MCG PO BEFORE BREAKFAST, #30 TAB 11/28/15 Primary Care Provider Hina Castillo MD Time spent on discharge: > 30 minutes HINA CASTILLO MD September 03, 2016 09:42
== END 2016-08-15 14:15 | disposition home or self-care (01) | DRG 871 ==
LOC: E/R 08:55 → ICU 14:20 → TEL 08-13 00:09
PROVIDERS: ADMIT Family Medicine; ATTEND Family Medicine
PROC: 5A1D60Z (ICD-10-PCS; principal; 2016-08-11)
PROC: 5A09357 Assistance with Respiratory Ventilation, Less than 24 Consecutive Hours, Continuous Positive Airway Pressure (ICD-10-PCS; 2016-08-11)
PROC: 30233N1 Transfusion of Nonautologous Red Blood Cells into Peripheral Vein, Percutaneous Approach (ICD-10-PCS; 2016-08-11)
PROC: 0DJD8ZZ Inspection of Lower Intestinal Tract, Via Natural or Artificial Opening Endoscopic (ICD-10-PCS; 2016-08-13)
PROC: 0DB78ZX Excision of Stomach, Pylorus, Via Natural or Artificial Opening Endoscopic, Diagnostic (ICD-10-PCS; 2016-08-13)
DX: A41.9 Sepsis, unspecified organism (principal); J96.21 Acute and chronic respiratory failure with hypoxia; I13.2 Hypertensive heart and chronic kidney disease with heart failure and with stage 5 chronic kidney disease, or end stage renal disease; E87.2 Acidosis; K92.2 Gastrointestinal hemorrhage, unspecified; N18.6 End stage renal disease; J96.22 Acute and chronic respiratory failure with hypercapnia; J44.1 Chronic obstructive pulmonary disease with (acute) exacerbation; I50.9 Heart failure, unspecified; Z66 Do not resuscitate; E11.22 Type 2 diabetes mellitus with diabetic chronic kidney disease; F32.9 Major depressive disorder, single episode, unspecified; Z99.81 Dependence on supplemental oxygen; E87.6 Hypokalemia; E83.51 Hypocalcemia; D63.8 Anemia in other chronic diseases classified elsewhere; I25.10 Atherosclerotic heart disease of native coronary artery without angina pectoris; E03.9 Hypothyroidism, unspecified; N40.0 Benign prostatic hyperplasia without lower urinary tract symptoms; D63.1 Anemia in chronic kidney disease; D50.9 Iron deficiency anemia, unspecified; I70.0 Atherosclerosis of aorta; K64.4 Residual hemorrhoidal skin tags; K64.8 Other hemorrhoids; K29.50 Unspecified chronic gastritis without bleeding; K21.0 Gastro-esophageal reflux disease with esophagitis; M81.0 Age-related osteoporosis without current pathological fracture; Z79.4 Long term (current) use of insulin; Z99.2 Dependence on renal dialysis; Z98.61 Coronary angioplasty status; Z87.891 Personal history of nicotine dependence
CPT/HCPCS: 36415; 36430; 36600; 71010; 74000; 74176; 76700; 80048; 80053; 82140; 82378; 82550; 82553; 82607; 82728; 82746; 82803; 82962; 83010; 83036; 83540; 83615; 83735; 84100; 84132; 84443; 84484; 85014; 85018; 85025; 85045; 85610; 85730; 86038; 86850; 86900; 86901; 86920; 87040; 87081; 87116; 88305; 88312; 90935; 93005; 94640; 94660; 96374; 96375; C9113; J0610; J1644; J1940; J2597; J3480; J7040; J7070; P9016; P9059

== ENCOUNTER 2016-09-07 19:30 | Inpatient (IN) | payer MEDICARE, BC ==
[~2016-09-07] VITALS: Ht 167.6 cm; Wt 65.0 kg
--- NOTE | 2016-09-07 20:01 | ERA ---
ER Documentation Chief Complaint Date/Time DATE: 09/07/16 TIME: 20:00 Chief Complaint sob last hd was wednesday HPI The patient is a 81-year-old male, presenting to the ER because of acute on chronic dyspnea for 1 day. He normally uses 2-3 L nasal cannula of oxygen at home. He denies fever, chills, neck pain, chest pain, abdominal pain, vomiting , dysuria, diarrhea. He was discharged 4 days ago by his physician Dr. Hurst. He normally has dialysis on Wednesday and Wednesday Past medical history: Chronic kidney disease, anxiety, depression, diabetes mellitus, anemia, hypertension, BPH, hypothyroidism Past surgical history: Left upper extremity AV fistula ROS All systems reviewed and are negative except as per history of present illness. Medications Home Meds Active Scripts Tiotropium [place]* (Spiriva*) 18 Mcg Cap.w.dev, 1 INH INH BID for 30 Days, #60 CAP Prov:HINA CASTILLO MD 04/28/16 Salmeterol Xinaf-Fluticasone* (Advair*) 500/50 Diskus Inhaler, 1 INH INH BID for 30 Days, #1 CAP.EC Prov:HINA CASTILLO MD 04/28/16 Pantoprazole* (Pantoprazole*) 40 Mg Tablet.dr, 40 MG PO DAILY@06 for 30 Days, # 30 BOX Prov:HINA CASTILLO MD 04/28/16 Nifedipine (Procardia Xl) 30 Mg Tab.er.24, 30 MG PO BID for 30 Days, #30 TAB Prov:HINA CASTILLO MD 04/28/16 Minoxidil* (Lonitin*) 2.5 Mg Tab, 5 MG PO BID for 30 Days, #60 TAB Prov:HINA CASTILLO MD 04/28/16 [Ipratropium 0.02% (Neb)] 0.5 MG/2.5 ML NEBU No Conflict Check, 0.5 MG HHN Q6H RESP THERAPY for 30 Days, #90 CAP Prov:HINA CASTILLO MD 04/28/16 Clonidine Hcl* (Clonidine Hcl*) 0.1 Mg Tab, 0.1 MG PO TID for 30 Days, #90 TAB Prov:HINA CASTILLO MD 04/28/16 Carvedilol* (Carvedilol*) 12.5 Mg Tablet, 12.5 MG PO BID for 30 Days, #60 TAB Prov:HINA CASTILLO MD 04/28/16 Albuterol Sulfate* (Albuterol Sulfate* Neb) 0.083%-3 Ml Neb, 2.5 MG HHN Q6HWA RESP THERAPY for 30 Days, #90 BLIST PACK Prov:HINA CASTILLO MD 04/28/16 Acetaminophen* (Tylenol*) 325 Mg Tablet, 650 MG PO Q6H Y for PAIN AND OR ELEVATED TEMP for 30 Days, #90 TAB Prov:HINA CASTILLO MD 04/28/16 Reported Medications [Heparin 5000U/0.5ML] No Conflict Check, 0.5 ML SC Q12 06/02/16 Prednisolone* (Prelone*) 15 Mg/5 Ml Solution, 15 MG PO DAILY, ML 06/02/16 Multivit/Ca Carb/B Cmplx/Fa* (Katlyn-Michael*) 1 Tab Tab, 1 TAB PO DAILY, TAB 06/02/16 Insulin Aspart (Novolog) 100 Unit/1 Ml Cartridge, 0 SQ SLIDING SCALE BEFORE MEALS; 200-250=2 UNITS, 251-300=4 UNITS, 301-350=6 UNITS, 351-400=8 UNITS,>400=10 UNITS AND CALL 06/02/16 Valsartan* (Diovan*) 160 Mg Tablet, 320 MG PO DAILY, TAB HOLD IF SBP<110;HR 06/02/16 Docusate Sodium* (Docusate Sodium*) 100 Mg Capsule, 100 MG PO Q12, #60 CAP 06/02/16 Calcium Acetate* (Calcium Acetate*) 667 Mg Capsule, 667 MG PO WITH MEALS, #30 CAP 06/02/16 Sennosides* (Senna Lax*) 8.6 Mg Tablet, 1 TAB PO DAILY Y for CONSTIPATION, TAB 01/13/16 Levalbuterol* (Xopenex* HFA) 15 Gm Inha, 2 PUFFS INH Q4H Y for WHEEZING AND SOB , INHALER 01/13/16 Tamsulosin Hcl* (Tamsulosin Hcl*) 0.4 Mg Cap.er.24h, 0.4 MG PO HS, CAP 11/28/15 Levothyroxine Sodium* (Levothyroxine Sodium*) 125 Mcg Tablet, 125 MCG PO BEFORE BREAKFAST, #30 TAB 11/28/15 Allergies Allergies: Coded Allergies: No Known Allergy (Unverified , 06/02/16) PMhx/Soc History of Surgery: No Anesthesia Reaction: No Hx Neurological Disorder: No Hx Respiratory Disorders: No Hx Cardiac Disorders: Yes (HTN) Hx Psychiatric Problems: No (DEPRESSION) Hx Miscellaneous Medical Probl: No Hx Alcohol Use: No Hx Substance Use: No Hx Tobacco Use: No Physical Exam Vitals Vital Signs Date Time Temp Pulse Resp B/P Pulse Ox O2 Delivery O2 Flow Rate FiO2 09/07/16 21:36 3.0 09/07/16 21:33 79 20 98 Nasal Cannula 3.0 09/07/16 20:34 Nasal Cannula 2 09/07/16 20:26 Nasal Cannula 2.0 09/07/16 20:26 78 25 178/66 99 Nasal Cannula 2.0 09/07/16 19:36 98.7 86 28 199/86 90 Physical Exam Const: No acute distress. Head: Atraumatic. Eyes: Normal Conjunctiva. ENT: Normal External Ears, Nose and Mouth. Neck: Full range of motion. No meningismus. Resp: Bibasilar crackle tachypneic Cardio: Regular rate and rhythm, no murmurs. Abd: Soft, non distended, normal bowel sounds, non tender. Skin: No petechiae or rashes. Back: No midline or flank tenderness. Ext: No cyanosis, or edema. Neur: Awake and alert. No focal deficit Psych: Normal Mood and Affect. Result Diagram: 09/07/16202209/07/162022 Results 24 hrs Laboratory Tests Test 09/07/16 20:23 09/07/16 21:20 White Blood Count 12.110^3/ul Red Blood Count 3.7210^6/ul Hemoglobin 10.8g/dl Hematocrit 34.0% Mean Corpuscular Volume 91.4fl Mean Corpuscular Hemoglobin 29.0pg Mean Corpuscular Hemoglobin Concent 31.8g/dl Red Cell Distribution Width 15.5% Platelet Count 38405^3/UL Mean Platelet Volume 8.9fl Neutrophils % 72.7% Lymphocytes % 17.3% Monocytes % 7.2% Eosinophils % 1.9% Basophils % 0.2% Nucleated Red Blood Cells % 0.0/100WBC Neutrophils # 8.810^3/ul Lymphocytes # 2.110^3/ul Monocytes # 0.910^3/ul Eosinophils # 0.210^3/ul Basophils # 0.010^3/ul Nucleated Red Blood Cells # 0.010^3/ul Prothrombin Time 13.7Sec Prothrombin Time Ratio 1.1 INR International Normalized Ratio 1.05 Activated Partial Thromboplast Time 27.2Sec Sodium Level 137mmol/L Potassium Level 5.6mmol/L Chloride Level 98mmol/L Carbon Dioxide Level 27mmol/L Anion Gap 18 Blood Urea Nitrogen 84mg/dl Creatinine 10.11mg/dl Glucose Level 134mg/dl Calcium Level 8.9mg/dl Phosphorus Level 5.7mg/dl Magnesium Level 2.1mg/dl Troponin I 0.043ng/ml Lactic Acid Level 0.8mmol/L Current Medications Medications (Trade) Dose Ordered Sig/Bettina Route PRN Reason Start Time Stop Time Status Last Admin Dose Admin Ceftriaxone Sodium 50 ml @ 100 mls/hr ONCE ONCE IVPB 09/07/16 21:30 09/07/16 21:59 DC 09/07/16 21:42 Azithromycin (Zithromax 500mg/ NS (Pmx)) 250 ml @ 250 mls/hr ONCE ONCE IVPB 09/07/16 21:30 09/07/16 22:29 Dextrose (D50w Syringe) 50 ml ONCE ONCE IV 09/07/16 21:30 09/07/16 21:31 DC 09/07/16 21:41 Insulin Human Regular (Novolin-R) 5 unit ONCE ONCE IV 09/07/16 21:30 09/07/16 21:31 Cancel Albuterol (Proventil 0.083% (Neb)) 5 mg ONCE STAT HHN 09/07/16 21:16 09/07/16 21:19 DC 09/07/16 21:32 Insulin Human Regular (Humulin R) 5 unit ONCE ONCE IV 09/07/16 21:30 09/07/16 21:31 DC 09/07/16 21:42 Procedures/[place] [id number] Radiology Main Line: [phone] DIAGNOSTIC IMAGING REPORT Patient: DORI ARNDT : 1935 Age: 81 Sex: M MR #: [id number] #: [id number] DOS: 09/07/161941 Ordering MD: TIA SALAS MD Location: E/R Room/Bed: PROCEDURE: CHEST 1VW CLINICAL INDICATION: Shortness of breath TECHNIQUE: Single frontal view of the chest was obtained COMPARISON: 06/02/2016 FINDINGS: Interval removal of dialysis catheter. The cardiac size is moderately enlarged, stable. Aortic vascular calcifications are demonstrated. There is worsening interstitial edema and pulmonary vascular congestion. Minimal bronchial wall thickening is seen.. There is scattered areas of airspace opacity. Mild degenerative changes of the visualized osseous structures are visualized. IMPRESSION: 1. Moderate cardiomegaly with worsening mild pulmonary vascular congestion and interstitial edema. Patchy airspace opacity may represent alveolar edema or pneumonia. 2. Atherosclerosis. RPTAT:PP .Michael Healy MD, MD Date Time Electronically viewed and signed by .Michael Healy MD, MD on 09/07/2016 20:39 .V/ CC: TIA SALAS MD EKG: Read by emergency physician Rate/Rhythm: Normal Sinus Rhythm 77 beats/min QRS, ST, T-waves: No ST elevation, no T inversion, first-degree AV block, premature supraventricular complex, LAD, prolonged QT Impression: Abnormal EKG MEDICAL MAKING DECISION: The patient is a 81-year-old male, presenting with acute fluid overload, acute hyperkalemia, possible pneumonia. He was treated with 1 amp D50 IV, 5 units of regular insulin IV, albuterol 5 mg nebulizer for acute hyperkalemia, Rocephin IV and Zithromax IV for possible pneumonia The differential diagnoses considered include but are not limited to asthma, COPD, pneumonia, pulmonary embolus, pleural effusion, congestive heart failure. Critical Care: Time: 35 minutes excluding all billable procedures. Treatments/Evaluations: Close monitoring and treatment of unstable vital signs, cardiorespiratory, and neurologic status, while maintaining tight balance of fluid, respiratory, and cardiac interventions. Departure Diagnosis: Primary Impression: Fluid overload Additional Impressions: Hyperkalemia Pneumonia Condition: Stable Comments The patient belonged to [facility], I spoke with the [facility] hospitalist who recommended to admit the patient to his PCP Dr. Hurst. Dr. Bonilla is on-call for Dr. Hurst, Dr. Lamar Montague is on- call for Dr. Bonilla I discussed the findings with the patient. I discussed the patient with Dr. Marie Montague who was made aware of the lab, the treatment, the patient condition. The patient is admitted to telemetry at the 9:30 PM TIA SALAS MD September 07, 2016 20:01
[2016-09-07 20:34] LABS: ADD SCAN DIFF NO
[2016-09-07 20:36] LABS: BASOPHILS % 0.2 % (0.0-2.0); EOSINOPHILS # 0.2 10^3/ul (0.0-0.5); EOSINOPHILS % 1.9 % (0.0-7.0); HEMOGLOBIN 10.8 g/dl (14.0-18.0); LYMPHOCYTES # 2.1 10^3/ul (0.8-2.9); LYMPHOCYTES % 17.3 % (15.0-51.0); MEAN CORPUSCULAR HGB CONC 31.8 g/dl (32.0-37.0); MEAN CORPUSCULAR VOLUME 91.4 fl (82.0-101.0); MEAN PLATELET VOLUME 8.9 fl (7.4-10.4); MONOCYTE # 0.9 10^3/ul (0.3-0.9); MONOCYTES % 7.2 % (0.0-11.0); NEUTROPHIL # 8.8 10^3/ul (1.6-7.5); NEUTROPHILS % 72.7 % (39.0-77.0); PLATELET COUNT 295 10^3/UL (140-415); RED BLOOD COUNT 3.72 10^6/ul (4.70-6.10); RED CELL DISTRIBUTION WIDTH 15.5 % (11.5-14.5); WHITE BLOOD COUNT 12.1 10^3/ul (4.8-10.8)
--- NOTE | 2016-09-07 20:39 | RADRPT ---
PROCEDURE: CHEST 1VW CLINICAL INDICATION: Shortness of breath TECHNIQUE: Single frontal view of the chest was obtained COMPARISON: 06/02/2016 FINDINGS: Interval removal of dialysis catheter. The cardiac size is moderately enlarged, stable. Aortic vascular calcifications are demonstrated. There is worsening interstitial edema and pulmonary vascular congestion. Minimal bronchial wall thickening is seen.. There is scattered areas of airspace opacity. Mild degenerative changes of the visualized osseous structures are visualized. IMPRESSION: 1. Moderate cardiomegaly with worsening mild pulmonary vascular congestion and interstitial edema. P atchy airspace opacity may represent alveolar edema or pneumonia. 2. Atherosclerosis. RPTAT:PP .Michael Healy MD, MD Date Time Electronically viewed and signed by .Michael Healy MD, on 09/07/2016 20:39 .V/
[2016-09-07 20:50] LABS: POTASSIUM 5.6 mmol/L (3.5-5.1)
[2016-09-07 20:52] LABS: CREATININE 10.11 mg/dl (0.61-1.24); INR 1.05; PARTIAL THROMBOPLASTIN TIME 27.2 Sec (25.0-35.0); PROTIME 13.7 Sec (12.2-14.2); PT RATIO 1.1
[2016-09-07 20:53] LABS: CALCIUM 8.9 mg/dl (8.4-10.2); PHOSPHORUS 5.7 mg/dl (2.5-4.9)
[2016-09-07 20:54] LABS: MAGNESIUM 2.1 mg/dl (1.7-2.5)
[2016-09-07 21:04] LABS: TROPONIN-I 0.043 ng/ml (0.00-0.12)
[2016-09-07] MEDS ORDERED: ALBUTEROL 0.083% (NEB) 2.5 MG/3 ML AMP HHN STA (21:16)
[2016-09-07] MEDS ORDERED: AZITHROMYCIN 500MG/NS (PMX) 250 ML IVPB ONE (21:30)
[2016-09-07] MEDS ORDERED: INSULIN REGULAR 10 ML INJ IV ONE (21:30)
[2016-09-07] MEDS ORDERED: CEFTRIAXONE 1 GM/50 ML (PMX) 50 ML IVPB ONE (21:30)
[2016-09-07] MEDS ORDERED: DEXTROSE 50% 50 ML SYRINGE IV ONE (21:30)
[2016-09-07] MEDS ORDERED: INSULIN REGULAR, HUMAN 100 UNIT/1 ML 3ML VIAL IV ONE (21:30)
[2016-09-07] MEDS ORDERED: NACL 0.9% 3 ML SYG IV SCH (23:00)
[2016-09-07] MEDS ORDERED: ONDANSETRON 4 MG INJ IV PRN (23:00)
[2016-09-07] MEDS ORDERED: morphine 2 MG INJ IV PRN (23:00)
[2016-09-07] MEDS ORDERED: ACETAMINOPHEN 325 MG TAB PO PRN (23:00)
[2016-09-08] VITALS (29 sets, daily range): BP systolic 98–224; BP diastolic 50–113; PULSE 77–155; RESP 17–20; Ht 167.6 cm; Wt 65.0 kg
[2016-09-08] MEDS: HEPARIN 5,000 UNIT/0.5 ML VIAL SC SCH ×4 (05:33→22:00)
[2016-09-08 06:14] LABS: ADD SCAN DIFF NO
[2016-09-08 06:21] LABS: BASOPHIL # 0.1 10^3/ul (0.0-0.1); BASOPHILS % 0.4 % (0.0-2.0); EOSINOPHILS # 0.2 10^3/ul (0.0-0.5); EOSINOPHILS % 1.7 % (0.0-7.0); HEMATOCRIT 32.7 % (42.0-52.0); HEMOGLOBIN 10.4 g/dl (14.0-18.0); LYMPHOCYTES # 2.2 10^3/ul (0.8-2.9); LYMPHOCYTES % 19.7 % (15.0-51.0); MEAN CORPUSCULAR HEMOGLOBIN 29.1 pg (29.0-33.0); MEAN CORPUSCULAR HGB CONC 31.8 g/dl (32.0-37.0); MEAN CORPUSCULAR VOLUME 91.3 fl (82.0-101.0); MEAN PLATELET VOLUME 9.1 fl (7.4-10.4); MONOCYTE # 0.8 10^3/ul (0.3-0.9); MONOCYTES % 6.6 % (0.0-11.0); NEUTROPHILS % 70.9 % (39.0-77.0); PLATELET COUNT 256 10^3/UL (140-415); RED BLOOD COUNT 3.58 10^6/ul (4.70-6.10); RED CELL DISTRIBUTION WIDTH 15.1 % (11.5-14.5); WHITE BLOOD COUNT 11.3 10^3/ul (4.8-10.8)
[2016-09-08 06:32] LABS: ALBUMIN 3.2 g/dl (3.3-4.9); ALBUMIN/GLOBULIN RATIO 0.88; CALCIUM 8.6 mg/dl (8.4-10.2); CREATININE 10.48 mg/dl (0.61-1.24); POTASSIUM 5.7 mmol/L (3.5-5.1); TOTAL PROTEIN 6.8 g/dl (6.1-8.1)
[2016-09-08] MEDS: CEFTRIAXONE 1 GM/50 ML (PMX) 50 ML IVPB SCH (08:26)
[2016-09-08] MEDS ORDERED: FAMOTIDINE 20 MG INJ IV SCH (09:00)
[2016-09-08] MEDS ORDERED: NA POLYST SULFON 15 GM/60 ML BTL PO ONE (10:00)
[2016-09-08] MEDS ORDERED: ALBUMIN HUMAN 25% 100 ML IV SCH (11:00)
[2016-09-08] MEDS ORDERED: ALBUTEROL/IPRATROPIUM (NEB) 3 ML AMP HHN PRN (12:30)
[2016-09-08] MEDS ORDERED: METHYLPREDNISOLONE 40 MG INJ IV ONE (13:00)
[2016-09-08] MEDS ORDERED: LORAZEPAM 2 MG INJ IV ONE (13:00)
[2016-09-08] MEDS: ALBUTEROL/IPRATROPIUM (NEB) 3 ML AMP HHN SCH ×2 (13:19→19:40)
--- NOTE | 2016-09-08 13:22 | CONS ---
DATE OF ADMISSION: 09/07/2016 DATE OF CONSULTATION: 09/08/2016 Thank you very much for allowing me to evaluate this 80-year-old male admitted with shortness of janett ath. HISTORICAL EVENTS: The patient was admitted via the ER yesterday with increasing shortness of breat h and I was asked to evaluate him today. He does undergo regular outpatient dialysis treatments 3 t imes per week at [facility]. Because of increasing shortness of breath and questionab le chest pain, was evaluated in the ER and admitted. Presently cannot provide me with any additiona l historical events, as he is dyspneic. PAST MEDICAL HISTORY: Includes: 1. Chronic obstructive pulmonary disease with known interstitial lung disease. 2. History of diabetes. 3. 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 4. Depression. 5. History of benign prostatic hypertrophy. 6. Osteoporosis. 7. 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 8. Hypotension. 9. Known coronary artery disease having had stents placed. 10. History of recurrent urinary infections. MEDICATIONS: Include presently: 1. Ceftriaxone 1 gram daily. 2. Albuterol inhaler. 3. Clonidine 0.1 q.4h. p.r.n. 4. Pepcid IV 20 mg. 5. Heparin 5000 units q.8h. 6. Hydralazine 50 mg b.i.d. 7. Lorazepam as needed. 8. Morphine for pain. 9. Having received Kayexalate. FAMILY HISTORY: To be reviewed later. PHYSICAL EXAMINATION: VITAL SIGNS: BP 185/80, pulse 110, respirations were 18. NECK: No JVD. LUNGS: Reduced breath sounds. HEART: Rhythm regular, no murmur. No third sound. ABDOMEN: Nontender. Liver and spleen were not palpable. No masses or tenderness were noted. EXTREMITIES: No edema. LABORATORY AND DIAGNOSTIC STUDIES: Hematocrit 32.7, white count 11,300, platelet count 256,000. On admission, sodium 134, potassium 5.7, chloride 99, CO2 26, BUN 88, creatinine 10.48. Troponin was 0.43 on admission. Protime and PTT were normal. Chest x-ray revealed infiltrates and CHF. IMPRESSION: 1. Recurrent volume overload and presently evidence of congestive heart failure; doubt concurrent pneumonitis. 2. 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 3. Chronic obstructive pulmonary disease and interstitial lung disease. PLAN: Aggressive dialysis today reevaluate the same. Optimal control of BP of course will be abdulaziz emery. We will follow with you. Dictated By: TRUE RANDALL/CAMILO Conf#: [id number] DID#: [id number] CC: HINA CASTILLO MD;*EndCC*
[2016-09-08] MEDS ORDERED: LORAZEPAM 2 MG INJ IV PRN (13:30)
[2016-09-08] MEDS ORDERED: SENNA TAB PO PRN (13:30)
[2016-09-08] MEDS ORDERED: ACETAMINOPHEN 325 MG TAB PO PRN (13:30)
--- NOTE | 2016-09-08 13:56 | HP ---
DATE OF ADMISSION: 09/07/2016 CHIEF COMPLAINT: Shortness of breath. HISTORY OF PRESENT ILLNESS: 1. The patient is a 81-year-old gentleman with history of end-stage renal disease, hemodialysis dep endent. The patient with history of hypertension, depression, diastolic congestive heart failure, a nxiety, depression, hypertension, anemia, BPH, hypothyroidism. The patient is on supplemental oxyge n at home. The patient presented to the emergency room with complaints of shortness of breath. The patient underwent chest x-ray which revealed moderate cardiomegaly with worsening in mild pulmonary vascular congestion and interstitial edema, patchy airspace opacity may represent alveolar edema or pneumonia. 2. Atherosclerosis. The patient also noted to have leukocytosis with white blood cells being 12,10 0 on admission. The patient also with hyperkalemia of potassium being 5.6. The patient was started on Rocephin and Zithromax for possible pneumonia; however, patient was recently discharged from the hospital and community-acquired pneumonia should be considered. The patient was given treatment fo r hyperkalemia and admitted for further evaluation and management. The patient denied any fever, de nies any nausea or vomiting. The patient's last hemodialysis was on Wednesday. PAST MEDICAL HISTORY: Per HPI. PAST SURGICAL HISTORY: Status post left upper extremity AV fistula, angioplasty, coronary artery by pass surgery, endoscopy. During the examination, patient is very anxious and most of the history was obtained from medical re cords and talking to nursing and medical staff. FAMILY HISTORY: Noncontributory. SOCIAL HISTORY: Former smoker. Denies any drug abuse. Uses alcohol rarely. Lives with family. ALLERGIES: NO KNOWN ALLERGIES. HOME MEDICATIONS: Include: 1. Spiriva. 2. Advair. 3. Protonix. 4. Procardia. 5. Minoxidil. 6. Ipratropium. 7. Clonidine. 8. Coreg. 9. Albuterol 10. Tylenol. REVIEW OF SYSTEMS: Twelve-point review of systems is negative unless what mentioned in the HPI. PHYSICAL ASSESSMENT GENERAL: Well-developed male, currently undergoing hemodialysis. The patient is very anxious. Faith ke, alert and oriented x3. VITAL SIGNS: Temperature is 97.9. Pulse is 83, blood pressure 185/80, respiratory rate 18, oxygen saturation 98% on 4 liters nasal cannula. HEENT: Head is atraumatic, normocephalic. Pupils equal, round, reactive to light and accommodation . Oral mucosa is pink and moist. NECK: Supple. JVD is present. CHEST: Lungs diminished air entry bilaterally. No rhonchi or rales noted. CARDIOVASCULAR: S1, S2. No murmurs, gallops, clicks, rubs noted. ABDOMEN: Round, soft, nondistended, nontender. Bowel sounds present. EXTREMITIES: Mild edema. The patient's left upper extremity with arteriovenous fistula. SKIN: No rash or petechia noted. NEUROLOGIC: The patient is awake, alert and oriented, anxious. LABORATORY DATA: On admission, CBC: White blood cells 12.1, hemoglobin 10.8, hematocrit 34.0, plat elets 295. Chemistry: Sodium is 137, potassium 5.6, chloride 98, carbon dioxide 27, anion gap 18. BUN is 84, creatinine 10.11, glucose 134. Calcium is 8.9. Phosphorus is 5.7, magnesium 2.1. Trop onin 0.043. ASSESSMENT AND PLAN: 1. Acute respiratory insufficiency secondary to fluid overload, possible pneumonia. We asked Dr. Faiza bill to see patient in pulmonology consultation. Continue breathing treatment, oxygen supplementa tion. 2. End-stage renal disease, hemodialysis dependent. Dr. Lake is following patient in nephrology consultation. Continue hemodialysis. 3. Possible pneumonia. We will continue patient on broad-spectrum antibiotics. Monitor chest x-ra y. 4. Diastolic congestive heart failure. Dr. Barnhart is asked to see patient in cardiology consultat ion. 5. Run of supraventricular tachycardia. Will continue to follow up cardiologic recommendations. M onitor patient closely on telemetry floor. 6. Anxiety. We will start the patient on Ativan p.r.n. for anxiety. 7. Hypertension. Continue patient on Procardia and minoxidil and Coreg. 8. Hypothyroidism. Continue Synthroid 125 mcg daily. 9. Diabetes mellitus. Continue NovoLog sliding scale. Obtain hemoglobin A1c. 10. Benign prostatic hypertrophy. Continue tamsulosin. 11. Will continue heparin for deep venous thrombosis prophylaxis and Protonix for peptic ulcer dise ase prophylaxis. Further recommendations based on clinical course. Plan of care discussed with Dr. Farrar. Dictated By: CHARLES HAIRSTON SENIOR MARKETING ANALYST for MANDA FARRAR MD SR/NTS Conf#: [id number] [facility]#: [id number]
[2016-09-08] MEDS: NIFEdipine (XL) 30 MG TAB PO SCH ×2 (14:00→20:28)
[2016-09-08] MEDS: MULTIVIT/CA CARB/B CMPLX/FA TAB PO SCH (14:00)
[2016-09-08] MEDS: MINOXIDIL 2.5 MG TAB PO SCH ×2 (14:00→20:29)
[2016-09-08] MEDS: VALSARTAN 160 MG TAB PO SCH (14:00)
[2016-09-08] MEDS: PANTOPRAZOLE (EC) 40 MG TAB PO SCH (14:26)
[2016-09-08] MEDS: predniSOLONE 5 MG TAB PO SCH (15:44)
--- NOTE | 2016-09-08 17:38 | CONS ---
DATE OF ADMISSION: 09/07/2016 DATE OF CONSULTATION: TYPE OF CONSULTATION: Pulmonary. REASON FOR CONSULTATION: Shortness of breath. Thank you, Dr. Bonilla, for this consultation. HISTORY OF PRESENT ILLNESS: This is a pleasant 81-year-old gentleman seen by myself in the office w ith a history of recurrent hypoxemic respiratory failure, mostly secondary to volume overload, was s een by myself last week. At that time, remained relatively stable, continued hemodialysis with Dr. Greg Samson 3 times a week. The patient presents at this time with several-day history of increasi ng shortness of breath, orthopnea, PND. Found on admission to be in pulmonary edema radiographicall y with subsequent hypoxemia, requiring emergent hemodialysis. The patient had been receiving hemodi alysis. States he has not missed any episodes. On admission, he was also noted to be mildly hyper kalemic with mild leukocytosis consistent with possible community-acquired pneumonia. PAST MEDICAL HISTORY: 1. End-stage renal failure, on hemodialysis. 2. Coronary artery disease. 3. History of coronary artery bypass graft surgery. 4. Left upper extremity AV fistula. 5. Prior history of tobacco use. MEDICATIONS: Per chart include: 1. Advair. 2. Spiriva. ALLERGIES: NONE. SOCIAL HISTORY: Ex-smoker, no alcohol, no history of drug use. FAMILY HISTORY: Noncontributory. REVIEW OF SYSTEMS: A 12-point review of systems was negative other than that mentioned above. PHYSICAL EXAMINATION: GENERAL: Well-nourished, well-developed gentleman, comfortable at rest, no acute distress. VITAL SIGNS: Currently afebrile, temperature 98, pulse is 100, blood pressure 180/80, O2 saturation 96% on FIO2 of 3 liters. Initially, blood pressure was significantly higher. IMPRESSION AND PLAN: 1. Acute hypoxemic respiratory failure, likely secondary to combination of volume overload, possibl e component of community-acquired pneumonia. 2. End-stage renal failure, on hemodialysis. 3. History of probable underlying chronic obstructive pulmonary disease. 4. History of chronic bronchospasm. The patient will require: 1. Hemodialysis with volume removal. 2. Consider echocardiogram and cardiology evaluation. 3. Continue antibiotics for community-acquired pneumonia. 4. DVT and GI prophylaxis. Dictated By: CARLEEN JAY/CAMILO Conf#: [id number] [facility]#: [id number]
[2016-09-08] MEDS: CALCIUM ACETATE 667 MG CAP PO SCH (17:59)
[2016-09-08] MEDS: DOCUSATE SODIUM 100 MG CAP PO SCH (20:26)
[2016-09-08] MEDS: TIOTROPIUM 18 MCG CAPSULE INHA DEV INH SCH (20:26)
[2016-09-08] MEDS: TAMSULOSIN (SR) 0.4 MG CAP PO SCH (20:27)
[2016-09-08] MEDS: SALMETEROL/FLUTICASONE 500/50 INHA INH SCH (20:27)
[2016-09-09] VITALS (13 sets, daily range): BP systolic 120–174; BP diastolic 59–78; PULSE 68–79; RESP 16–20
[2016-09-09] MEDS: HEPARIN 5,000 UNIT/0.5 ML VIAL SC SCH ×3 (06:00→21:20)
[2016-09-09] MEDS: PANTOPRAZOLE (EC) 40 MG TAB PO SCH (06:08)
[2016-09-09] MEDS: LEVOTHYROXINE 125 MCG TAB PO SCH (06:08)
[2016-09-09 07:31] LABS: ADD SCAN DIFF NO
[2016-09-09 07:41] LABS: BASOPHILS % 0.3 % (0.0-2.0); EOSINOPHILS % 0.2 % (0.0-7.0); HEMATOCRIT 32.1 % (42.0-52.0); HEMOGLOBIN 10.2 g/dl (14.0-18.0); LYMPHOCYTES # 1.3 10^3/ul (0.8-2.9); LYMPHOCYTES % 14.2 % (15.0-51.0); MEAN CORPUSCULAR HEMOGLOBIN 29.7 pg (29.0-33.0); MEAN CORPUSCULAR HGB CONC 31.8 g/dl (32.0-37.0); MEAN CORPUSCULAR VOLUME 93.3 fl (82.0-101.0); MEAN PLATELET VOLUME 9.3 fl (7.4-10.4); MONOCYTE # 0.6 10^3/ul (0.3-0.9); MONOCYTES % 6.5 % (0.0-11.0); NEUTROPHIL # 7.3 10^3/ul (1.6-7.5); NEUTROPHILS % 78.1 % (39.0-77.0); PLATELET COUNT 283 10^3/UL (140-415); RED BLOOD COUNT 3.44 10^6/ul (4.70-6.10); WHITE BLOOD COUNT 9.4 10^3/ul (4.8-10.8)
--- NOTE | 2016-09-09 07:54 | CONS ---
Date/Time of Note Date/Time of Note DATE: 09/09/16 TIME: 07:52 Assessment/Plan Assessment/Plan Additional Assessment/Plan 1. CHF much improved after HD yesterday. 2. BP control improved after meds resumed 3. CKD, stable, will plan on HD tomm unless K is elev today 4. COPD and interstitial lung dz, Prednisone resumed, taper per IM. 5. Anemia sec to CKD Consultation Date/Type/Reason Admit Date/Time September 07, 2016 at 21:46 Initial Consult Date Detailed Summary Respiratory: No shortness of breath Cardiovascular: No chest pain Gastrointestinal: no complaints Genitourinary: no complaints Exam/Review of Systems Vital Signs Vitals Vital Signs Date Time Temp Pulse Resp B/P Pulse Ox O2 Delivery O2 Flow Rate FiO2 09/09/16 07:36 97.8 65 18 150/67 99 09/08/16 22:00 Nasal Cannula 2.0 09/08/16 13:21 60 Intake and Output 09/08/16 09/08/16 09/09/16 14:59 22:59 06:59 Intake Total 350 ml 900 ml 1100 ml Output Total 4300 ml Balance -3950 ml 900 ml 1100 ml Exam Neck: No jvd Respiratory: diminished breath sounds (and only a few rales are present) Cardiovascular: regular rate and rhythm, No S3, No S4 Gastrointestinal: soft Extremities: No edema Results Result Diagram: 09/09/16 0630 09/08/16 0550 Results 24 hrs Laboratory Tests Test 09/09/16 06:30 White Blood Count 9.4 Red Blood Count 3.44 L Hemoglobin 10.2 L Hematocrit 32.1 L Mean Corpuscular Volume 93.3 Mean Corpuscular Hemoglobin 29.7 Mean Corpuscular Hemoglobin Concent 31.8 L Red Cell Distribution Width 15.0 H Platelet Count 283 Mean Platelet Volume 9.3 Neutrophils % 78.1 H Lymphocytes % 14.2 L Monocytes % 6.5 Eosinophils % 0.2 Basophils % 0.3 Nucleated Red Blood Cells % 0.0 Neutrophils # 7.3 Lymphocytes # 1.3 Monocytes # 0.6 Eosinophils # 0.0 Basophils # 0.0 Nucleated Red Blood Cells # 0.0 Medications Medications Current Medications Ondansetron HCl (Zofran Inj) 4 mg Q6H PRN IV NAUSEA AND/OR VOMITING; Start at 23:00 Acetaminophen (Tylenol Tab) 650 mg Q6H PRN PO PAIN LEVEL 1-3 OR FEVER; Start at 23:00 Morphine Sulfate (morphine) 2 mg Q4H PRN IV PAIN LEVEL 7-10 Last administered on 09/08/16 10:09; Admin Dose 2 MG; Start 09/07/16 at 23:00 Heparin Sodium (Porcine) 5000 unit 5,000 unit Q8 SC ; Start 09/08/16 at 06:00 Ceftriaxone Sodium (Rocephin) 50 ml @ 100 mls/hr DAILY IVPB Last administered on 09/08/16 08:26; Admin Dose 100 MLS/HR; Start 09/08/16 at 09:00 Hydralazine HCl (Apresoline) 50 mg BID PO Last administered on 09/08/16 20:28 ; Admin Dose 50 MG; Start 09/08/16 at 21:00 Clonidine (Catapres) 0.1 mg Q4H PRN PO SBP greater than 170 Last administered on 09/08/16 10:09; Admin Dose 0.1 MG; Start 09/08/16 at 10:00 Carvedilol (Coreg) 12.5 mg BID PO Last administered on 09/08/16 20:27; Admin Dose 12.5 MG; Start 09/08/16 at 13:00 Minoxidil (Loniten) 5 mg BID PO Last administered on 09/08/16 20:29; Admin Dose 5 MG; Start 09/08/16 at 13:00 Multivit/Ca Carb/ B Cmplx/FA/Prenat (Katlyn-Michael) 1 tab DAILY PO Last administered on 09/08/16 14:00; Admin Dose 1 TAB; Start 09/08/16 at 13:00 Nifedipine (Procardia Xl) 30 mg BID PO Last administered on 09/08/16 20:28; Admin Dose 30 MG; Start 09/08/16 at 13:00 Tamsulosin HCl (Flomax) 0.4 mg HS PO Last administered on 09/08/16 20:27; Admin Dose 0.4 MG; Start 09/08/16 at 21:00 Valsartan (Diovan) 320 mg DAILY PO ; Start 09/08/16 at 13:00 Clonidine (Catapres) 0.1 mg TID PO Last administered on 09/08/16 20:28; Admin Dose 0.1 MG; Start 09/08/16 at 13:30 Docusate Sodium (Colace) 100 mg Q12 PO Last administered on 09/08/16 20:26; Admin Dose 100 MG; Start 09/08/16 at 21:00 Pantoprazole (Protonix Tab) 40 mg DAILY@06 PO Last administered on 09/09/16 06 :08; Admin Dose 40 MG; Start 09/08/16 at 14:00 Salmeterol Xinafoate/ Fluticasone (Advair 500/50 Diskus) 1 inh BID INH Last administered on 09/08/16 20:27; Admin Dose 1 INH; Start 09/08/16 at 21:00 Senna (Senokot) 1 tab DAILY PRN PO CONSTIPATION; Start 09/08/16 at 13:30 Tiotropium [place] (Spiriva) 1 inh BID INH Last administered on 09/08/16 20:26 ; Admin Dose 1 INH; Start 09/08/16 at 21:00 Prednisolone (Prednisolone) 15 mg DAILY PO Last administered on 09/08/16 15:44 ; Admin Dose 15 MG; Start 09/08/16 at 15:00 TRUE GTZ MD September 09, 2016 07:53
[2016-09-09 08:01] LABS: POTASSIUM 5.2 mmol/L (3.5-5.1)
[2016-09-09 08:03] LABS: CREATININE 8.31 mg/dl (0.61-1.24)
[2016-09-09 08:04] LABS: CALCIUM 8.8 mg/dl (8.4-10.2)
[2016-09-09 08:06] LABS: Allen Test ACCEPTAB; Arterial Base Excess 2.8 mmol/L (-3.0-3); Arterial COHb 0.2 % (0.0-3.0); Arterial Fraction of Oxyhgb 96.2 % (93.0-99.0); Arterial MetHb 0.3 % (0.0-1.5); Arterial Total Hemglobin 11.5 g/dl (12.0-18.0); MODE NASAL CANNULA
[2016-09-09 08:07] LABS: PHOSPHORUS 6.5 mg/dl (2.5-4.9)
[2016-09-09] MEDS: ALBUTEROL/IPRATROPIUM (NEB) 3 ML AMP HHN SCH ×3 (08:16→20:07)
[2016-09-09] MEDS: CALCIUM ACETATE 667 MG CAP PO SCH ×3 (08:27→17:53)
--- NOTE | 2016-09-09 08:52 | RADRPT ---
PROCEDURE: XR Chest. CLINICAL INDICATION: Chest pain TECHNIQUE: Single frontal view of the chest was obtained. COMPARISON: 06/02/2016 FINDINGS: The heart is within normal limits. The thoracic aorta is calcified. There are patchy bilateral upper lobe and lower lobe infiltrates, suspicious for pulmonary vascular congestion. There are mild bibasilar atelectatic changes. The right-sided Perma-Cath has been remove d. There is no pleural effusion or pneumothorax. RPTAT: AA IMPRESSION: Patchy bilateral upper lobe and lower lobe infiltrates, suspicious for pulmonary vascular congestion . Mild bibasilar atelectatic changes. Calcified aorta consistent with atherosclerotic disease. .Dhiraj Gonzalez MD, MD Date Time Electronically viewed and signed by .Dhiraj Gonzalez MD, on 09/09/2016 08:52 .S/
[2016-09-09] MEDS: VALSARTAN 160 MG TAB PO SCH (09:00)
[2016-09-09] MEDS: MINOXIDIL 2.5 MG TAB PO SCH ×2 (09:00→21:06)
[2016-09-09] MEDS: NIFEdipine (XL) 30 MG TAB PO SCH ×2 (09:00→21:05)
[2016-09-09] MEDS ORDERED: predniSOLONE (3 MG/ML PO SYG) PO SCH (09:00)
[2016-09-09] MEDS: TIOTROPIUM 18 MCG CAPSULE INHA DEV INH SCH ×2 (09:14→21:08)
[2016-09-09] MEDS: CEFTRIAXONE 1 GM/50 ML (PMX) 50 ML IVPB SCH (09:14)
[2016-09-09] MEDS: SALMETEROL/FLUTICASONE 500/50 INHA INH SCH ×2 (09:15→21:05)
[2016-09-09] MEDS: predniSOLONE 5 MG TAB PO SCH (09:15)
[2016-09-09] MEDS: DOCUSATE SODIUM 100 MG CAP PO SCH ×2 (09:17→21:07)
[2016-09-09] MEDS: MULTIVIT/CA CARB/B CMPLX/FA TAB PO SCH (09:20)
--- NOTE | 2016-09-09 12:51 | CONS ---
Date/Time of Note Date/Time of Note DATE: 09/09/16 TIME: 12:49 Assessment/Plan Assessment/Plan Additional Assessment/Plan Assessment recommendations; 1. Patient admitted for CHF exacerbation with clinical improvement. Chest x- ray from today showing slight improvement in bilateral pulmonary edema. 2. History of BPH, hypothyroidism, hypertension. 3. Likely underlying interstitial lung disease as well. 4. Underlying COPD as well. Continue current treatment. Patient responding well to current treatment regimen. Consultation Date/Type/Reason Admit Date/Time September 07, 2016 at 21:46 Initial Consult Date Type of Consultation: Pulmonary 24 HR Interval Summary Free Text/Dictation Patient condition is stable. Reporting decreased shortness of breath. Denies any coughing wheezing sputum production or chest pain. General exam; elderly male, awake alert currently in no distress. Laying almost flat in bed. Exam/Review of Systems Vital Signs Vitals Vital Signs Date Time Temp Pulse Resp B/P Pulse Ox O2 Delivery O2 Flow Rate FiO2 09/09/16 12:21 71 09/09/16 11:32 98.3 18 166/72 98 09/09/16 08:17 Nasal Cannula 3.0 09/08/16 13:21 60 Intake and Output 09/08/16 09/08/16 09/09/16 15:00 23:00 07:00 Intake Total 350 ml 900 ml 1100 ml Output Total 4300 ml Balance -3950 ml 900 ml 1100 ml Exam HEENT exam; supple neck, positive JVD. No lymphadenopathy. Midline trachea. No thyromegaly. Pharynx is clear. No neck bruits. Chest exam; diminished but clear vessel. No added sound. S1-S2 audible, no murmurs. Abdomen examination; soft, no organomegaly. Bowel sounds audible. Extremity exam is; no peripheral edema. Pulses 1+ bilaterally. 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 Results Result Diagram: 09/09/16 0630 09/09/16 0630 Results 24 hrs Laboratory Tests Test 09/09/16 06:30 09/09/16 07:00 White Blood Count 9.4 Red Blood Count 3.44 L Hemoglobin 10.2 L Hematocrit 32.1 L Mean Corpuscular Volume 93.3 Mean Corpuscular Hemoglobin 29.7 Mean Corpuscular Hemoglobin Concent 31.8 L Red Cell Distribution Width 15.0 H Platelet Count 283 Mean Platelet Volume 9.3 Neutrophils % 78.1 H Lymphocytes % 14.2 L Monocytes % 6.5 Eosinophils % 0.2 Basophils % 0.3 Nucleated Red Blood Cells % 0.0 Neutrophils # 7.3 Lymphocytes # 1.3 Monocytes # 0.6 Eosinophils # 0.0 Basophils # 0.0 Nucleated Red Blood Cells # 0.0 Sodium Level 140 Potassium Level 5.2 H Chloride Level 101 Carbon Dioxide Level 30 Anion Gap 14 Blood Urea Nitrogen 66 H Creatinine 8.31 #H Glucose Level 113 Calcium Level 8.8 Phosphorus Level 6.5 H Magnesium Level 2.0 Blood Gas Specimen Source Blood arterial Arterial Blood Date Drawn 09/09/2016 7:50:17 AM Arterial Blood pH (Temp corrected) 7.488 H Arterial Blood pCO2 (Temp correct) 35.1 Arterial Blood pO2 (Temp corrected) 94.7 H Arterial Blood HCO3 26.0 Arterial Blood Base Excess 2.8 Arterial Blood Oxygen Saturation 96.7 Nikita Test ACCEPTAB Arterial Blood Gas Puncture Site Right Radial Arterial Blood Carboxyhemoglobin 0.2 Arterial Blood Methemoglobin 0.3 Blood Gas A-a O2 Differential 78.0 H Oxyhemoglobin Percent 96.2 Total Hemoglobin 11.5 L Blood Gas Temperature 37.0 Blood Gas Modality NASAL CANNULA FiO2 30.0 Blood Gas Notified Whom JLD Blood Gas Notified Time 09/09/2016 8:06:50 AM Medications Medications Current Medications Ondansetron HCl (Zofran Inj) 4 mg Q6H PRN IV NAUSEA AND/OR VOMITING; Start at 23:00 Acetaminophen (Tylenol Tab) 650 mg Q6H PRN PO PAIN LEVEL 1-3 OR FEVER; Start at 23:00 Morphine Sulfate (morphine) 2 mg Q4H PRN IV PAIN LEVEL 7-10 Last administered on 09/08/16 10:09; Admin Dose 2 MG; Start 09/07/16 at 23:00 Heparin Sodium (Porcine) 5000 unit 5,000 unit Q8 SC ; Start 09/08/16 at 06:00 Ceftriaxone Sodium (Rocephin) 50 ml @ 100 mls/hr DAILY IVPB Last administered on 09/09/16 09:14; Admin Dose 100 MLS/HR; Start 09/08/16 at 09:00 Hydralazine HCl (Apresoline) 50 mg BID PO Last administered on 09/08/16 20:28 ; Admin Dose 50 MG; Start 09/08/16 at 21:00 Clonidine (Catapres) 0.1 mg Q4H PRN PO SBP greater than 170 Last administered on 09/08/16 10:09; Admin Dose 0.1 MG; Start 09/08/16 at 10:00 Carvedilol (Coreg) 12.5 mg BID PO Last administered on 09/09/16 12:38; Admin Dose 12.5 MG; Start 09/08/16 at 13:00 Minoxidil (Loniten) 5 mg BID PO Last administered on 09/08/16 20:29; Admin Dose 5 MG; Start 09/08/16 at 13:00 Multivit/Ca Carb/ B Cmplx/FA/Prenat (Katlyn-Michael) 1 tab DAILY PO Last administered on 09/09/16 09:20; Admin Dose 1 TAB; Start 09/08/16 at 13:00 Nifedipine (Procardia Xl) 30 mg BID PO Last administered on 09/08/16 20:28; Admin Dose 30 MG; Start 09/08/16 at 13:00 Tamsulosin HCl (Flomax) 0.4 mg HS PO Last administered on 09/08/16 20:27; Admin Dose 0.4 MG; Start 09/08/16 at 21:00 Valsartan (Diovan) 320 mg DAILY PO ; Start 09/08/16 at 13:00 Clonidine (Catapres) 0.1 mg TID PO Last administered on 09/09/16 12:37; Admin Dose 0.1 MG; Start 09/08/16 at 13:30 Docusate Sodium (Colace) 100 mg Q12 PO Last administered on 09/09/16 09:17; Admin Dose 100 MG; Start 09/08/16 at 21:00 Pantoprazole (Protonix Tab) 40 mg DAILY@06 PO Last administered on 09/09/16 06 :08; Admin Dose 40 MG; Start 09/08/16 at 14:00 Salmeterol Xinafoate/ Fluticasone (Advair 500/50 Diskus) 1 inh BID INH Last administered on 09/09/16 09:15; Admin Dose 1 INH; Start 09/08/16 at 21:00 Senna (Senokot) 1 tab DAILY PRN PO CONSTIPATION; Start 09/08/16 at 13:30 Tiotropium [place] (Spiriva) 1 inh BID INH Last administered on 09/09/16 09:14 ; Admin Dose 1 INH; Start 09/08/16 at 21:00 Prednisolone (Prednisolone) 15 mg DAILY PO Last administered on 09/09/16 09:15 ; Admin Dose 15 MG; Start 09/08/16 at 15:00 NADER ANNE September 09, 2016 12:50
--- NOTE | 2016-09-09 15:30 | CONS ---
Date/Time of Note Date/Time of Note DATE: 09/09/16 TIME: 15:18 Assessment/Plan Assessment/Plan Chief Complaint/Hosp Course Impression: Tachycardia- has had NSVT, but sustaine arrhythmia appears to have been likely a SVT with aberrancy. no ekg available at the time of arrhyhthmia. pt denies symptoms, no syncope. no recurrence. would cont tele monitoring, potassium improved with iHD. - cont tele monitoring - add low dose aspirin if no c/i - cont carvedilol, titrate as tolerated HTN- variable bp, currently high but previously 90s-100s - cont current regimen - if bp remains high would titrate carvedilol CAD - stable - cont statin - add asa if no c/i Acute on chronic diastolic HF- difficult fluid mgmt with iHD - symptomatically improved - cont fluid removal as tolerated Problems: Consultation Date/Type/Reason Admit Date/Time September 07, 2016 at 21:46 Date of Consultation: September 09, 2016 Type of Consultation: Cardiology Reason for Consultation arrhythmia Referring Provider: MANDA FARRAR MD Hx of Present Illness Mr. Kim is a 81 y.o. man with h/o of ESRD on iHD, CAD s/p PCI to RCA, Chronic diastolic heart failure, hypertension who presented to [facility] with progressive dyspnea on exertion. Pt found to have congestion on cxr and underwent iHD with removal of 4L. Pt reports improved dyspnea. he denies current pnd, orthopnea, edema. no chest pain/pressure currently. pt has had brief NSVT on tele and had a 51 sec run of wc tachy yesterday. he denies any dizziness, lightheaded, palpitations, syncope. Pt converted spontaneously to nsr, has remained in nsr with intermittent PVCs. Constitutional: no complaints Eyes: no complaints ENT: no complaints Respiratory: shortness of breath Cardiovascular: no complaints, No chest pain Gastrointestinal: no complaints Genitourinary: no complaints Musculoskeletal: no complaints Skin: no complaints Neurologic: no complaints Psychological: nl mood/affect, no complaints Immunologic: no complaints Past Medical History cardiac hx per hpi Past Surgical History Past Surgical Hx: angioplasty, coronary bypass surgery, endoscopy, other Family History Significant Family History: other (no early cad) Social History Alcohol Use: none Smoking Status: Unknown if ever smoked Drug Use: none Exam/Review of Systems Vital Signs Vitals Vital Signs Date Time Temp Pulse Resp B/P Pulse Ox O2 Delivery O2 Flow Rate FiO2 09/09/16 15:01 2.0 09/09/16 14:33 78 20 98 Nasal Cannula 09/09/16 11:32 98.3 166/72 09/08/16 13:21 60 Intake and Output 09/08/16 09/08/16 09/09/16 15:00 23:00 07:00 Intake Total 350 ml 900 ml 1100 ml Output Total 4300 ml Balance -3950 ml 900 ml 1100 ml Exam Constitutional: alert, oriented Psych: nl mood/affect, no complaints Head: atraumatic, normocephalic Eyes: EOMI, nl conjunctiva ENMT: nl external ears & nose, nl lips & teeth, nl nasal mucosa & septum Neck: non-tender, supple, No jvd Respiratory: clear to auscultation, normal air movement Cardiovascular: nl pulses, regular rate and rhythm, systolic murmur, No S3, No S4, No bruits, No diastolic murmur, No irregular rhythm, No jugular venous distention (JVD) Gastrointestinal: non-tender, soft Musculoskeletal: nl extremities to inspection, nl gait and stance Extremities: normal pulses 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, nl mental status, nl speech, nl strength Skin: nl turgor Results Result Diagram: 09/09/1662909/09/16 0630 Results 24 hrs Laboratory Tests Test 09/09/16 06:30 09/09/16 07:00 White Blood Count 9.4 Red Blood Count 3.44 L Hemoglobin 10.2 L Hematocrit 32.1 L Mean Corpuscular Volume 93.3 Mean Corpuscular Hemoglobin 29.7 Mean Corpuscular Hemoglobin Concent 31.8 L Red Cell Distribution Width 15.0 H Platelet Count 283 Mean Platelet Volume 9.3 Neutrophils % 78.1 H Lymphocytes % 14.2 L Monocytes % 6.5 Eosinophils % 0.2 Basophils % 0.3 Nucleated Red Blood Cells % 0.0 Neutrophils # 7.3 Lymphocytes # 1.3 Monocytes # 0.6 Eosinophils # 0.0 Basophils # 0.0 Nucleated Red Blood Cells # 0.0 Sodium Level 140 Potassium Level 5.2 H Chloride Level 101 Carbon Dioxide Level 30 Anion Gap 14 Blood Urea Nitrogen 66 H Creatinine 8.31 #H Glucose Level 113 Calcium Level 8.8 Phosphorus Level 6.5 H Magnesium Level 2.0 Blood Gas Specimen Source Blood arterial Arterial Blood Date Drawn 09/09/2016 7:50:17 AM Arterial Blood pH (Temp corrected) 7.488 H Arterial Blood pCO2 (Temp correct) 35.1 Arterial Blood pO2 (Temp corrected) 94.7 H Arterial Blood HCO3 26.0 Arterial Blood Base Excess 2.8 Arterial Blood Oxygen Saturation 96.7 Nikita Test ACCEPTAB Arterial Blood Gas Puncture Site Right Radial Arterial Blood Carboxyhemoglobin 0.2 Arterial Blood Methemoglobin 0.3 Blood Gas A-a O2 Differential 78.0 H Oxyhemoglobin Percent 96.2 Total Hemoglobin 11.5 L Blood Gas Temperature 37.0 Blood Gas Modality NASAL CANNULA FiO2 30.0 Blood Gas Notified Whom JLD Blood Gas Notified Time 09/09/2016 8:06:50 AM Medications Medications Current Medications Ondansetron HCl (Zofran Inj) 4 mg Q6H PRN IV NAUSEA AND/OR VOMITING; Start at 23:00 Acetaminophen (Tylenol Tab) 650 mg Q6H PRN PO PAIN LEVEL 1-3 OR FEVER; Start at 23:00 Morphine Sulfate (morphine) 2 mg Q4H PRN IV PAIN LEVEL 7-10 Last administered on 09/08/16 10:09; Admin Dose 2 MG; Start 09/07/16 at 23:00 Heparin Sodium (Porcine) 5000 unit 5,000 unit Q8 SC ; Start 09/08/16 at 06:00 Ceftriaxone Sodium (Rocephin) 50 ml @ 100 mls/hr DAILY IVPB Last administered on 09/09/16 09:14; Admin Dose 100 MLS/HR; Start 09/08/16 at 09:00 Hydralazine HCl (Apresoline) 50 mg BID PO Last administered on 09/08/16 20:28 ; Admin Dose 50 MG; Start 09/08/16 at 21:00 Clonidine (Catapres) 0.1 mg Q4H PRN PO SBP greater than 170 Last administered on 09/08/16 10:09; Admin Dose 0.1 MG; Start 09/08/16 at 10:00 Carvedilol (Coreg) 12.5 mg BID PO Last administered on 09/09/16 12:38; Admin Dose 12.5 MG; Start 09/08/16 at 13:00 Minoxidil (Loniten) 5 mg BID PO Last administered on 09/08/16 20:29; Admin Dose 5 MG; Start 09/08/16 at 13:00 Multivit/Ca Carb/ B Cmplx/FA/Prenat (Katlyn-Michael) 1 tab DAILY PO Last administered on 09/09/16 09:20; Admin Dose 1 TAB; Start 09/08/16 at 13:00 Nifedipine (Procardia Xl) 30 mg BID PO Last administered on 09/08/16 20:28; Admin Dose 30 MG; Start 09/08/16 at 13:00 Tamsulosin HCl (Flomax) 0.4 mg HS PO Last administered on 09/08/16 20:27; Admin Dose 0.4 MG; Start 09/08/16 at 21:00 Valsartan (Diovan) 320 mg DAILY PO ; Start 09/08/16 at 13:00 Clonidine (Catapres) 0.1 mg TID PO Last administered on 09/09/16 12:37; Admin Dose 0.1 MG; Start 09/08/16 at 13:30 Docusate Sodium (Colace) 100 mg Q12 PO Last administered on 09/09/16 09:17; Admin Dose 100 MG; Start 09/08/16 at 21:00 Pantoprazole (Protonix Tab) 40 mg DAILY@06 PO Last administered on 09/09/16 06 :08; Admin Dose 40 MG; Start 09/08/16 at 14:00 Salmeterol Xinafoate/ Fluticasone (Advair 500/50 Diskus) 1 inh BID INH Last administered on 09/09/16 09:15; Admin Dose 1 INH; Start 09/08/16 at 21:00 Senna (Senokot) 1 tab DAILY PRN PO CONSTIPATION; Start 09/08/16 at 13:30 Tiotropium [place] (Spiriva) 1 inh BID INH Last administered on 09/09/16 09:14 ; Admin Dose 1 INH; Start 09/08/16 at 21:00 Prednisolone (Prednisolone) 15 mg DAILY PO Last administered on 09/09/16 09:15 ; Admin Dose 15 MG; Start 09/08/16 at 15:00 Procedures Procedures cxr report reviewed Patchy bilateral upper lobe and lower lobe infiltrates, suspicious for pulmonary vascular congestion. Mild bibasilar atelectatic changes. Calcified aorta consistent with atherosclerotic disease. EKG nsr, pacs. no ischemic changes TATA CAVANAUGH. September 09, 2016 15:30
[2016-09-09] MEDS ORDERED: VANCOMYCIN 1 GM in NS 250 ML IVPB SCH (17:00)
[2016-09-09] MEDS ORDERED: VANCOMYCIN IV PER PHARMACY XX SCH (17:00)
--- NOTE | 2016-09-09 17:27 | CONS ---
DATE OF ADMISSION: 09/07/2016 DATE OF CONSULTATION: 09/09/2016 INFECTIOUS DISEASE CONSULTATION REASON FOR CONSULTATION: Antibiotic management, blood. HISTORY OF PRESENT ILLNESS: Racquel Kim is a 81-year-old [place]ian male who comes in with shortness of breath and is being seen for antibiotic management. His past problems include: 1. End-stage renal disease on hemodialysis. 2. Hypertension. 3. Depression. 4. Diastolic congestive heart failure. 5. Anxiety. 6. Benign prostatic hypertrophy. 7. Hypothyroidism. 8. Anemia of chronic disease. The patient is on supplemental oxygen at home and comes into the emergency room with shortness of br eath. Chest x-ray shows mild cardiomegaly with worsening of mild pulmonary vascular congestion and interstitial edema. He had a chest x-ray which revealed worsening of mild pulmonary vascular conges tion with interstitial edema, patchy airspace opacity which may represent alveolar edema or pneumoni a. He also was noted to have leukocytosis of 12,100 on admission and had a potassium of 5.6. He wa s started on Rocephin and azithromycin for pneumonia; however, the patient was recently discharged f rom the hospital, and therefore, healthcare-associated pneumonia should be considered. PAST SURGICAL HISTORY: Status post left upper extremity AV fistula, angioplasty, coronary artery by pass surgery, and endoscopies. FAMILY HISTORY: Noncontributory. SOCIAL HISTORY: He does not smoke, drink, or abuse drugs. ALLERGIES: NONE TO PENICILLIN, SULFA, OR FOODS. MEDICATIONS: Per chart. REVIEW OF SYSTEMS: As per HPI. PHYSICAL EXAMINATION: GENERAL: The patient is a well-developed, well-nourished male who is alert, awake, responsive, anxi ous, in no acute distress. VITAL SIGNS: Stable. He is afebrile. SKIN: Without generalized rash. HEENT: Within normal limits. NECK: Supple. LYMPH NODES: None palpable. CHEST: Decreased breath sounds at the bases. HEART: Without murmur or gallop. ABDOMEN: Soft, nontender, without organosplenomegaly or masses. EXTREMITIES: Without cyanosis, clubbing, or edema. He has left upper extremity AV fistula with goo d bruit and thrill. RECTAL AND GENITAL: Deferred. NEUROLOGIC: No focal neurological abnormalities. As noted, his white count was 12.1 on admission, H and H 10.8 and 34, platelet count 295,000. BUN a nd creatinine 84/10.11. IMPRESSION AND PLAN: The patient presents therefore with acute respiratory insufficiency, probably pneumonia. The patient was started on ceftriaxone, but considering that he was in the hospital rece ntly, we should probably change that to imipenem or to cefepime. Actually, ertapenem once a day mayco ht be desired. We will add vancomycin to his regimen too. I will dictate my findings to Dr. Lena uribe and Dr. Lake and Dr. Blum. Dictated By: BRENNA PALACIOS MD, JD/CAMILO Conf#: [id number] DID#: [id number]
--- NOTE | 2016-09-09 17:43 | PN ---
Date/Time of Note Date/Time of Note DATE: 09/09/16 TIME: 17:37 Assessment/Plan VTE Prophylaxis VTE Prophylaxis Intervention: SCD's Lines/Catheters IV Catheter Type (from [facility]): Saline Lock Urinary Cath still in place: No Assessment/Plan Chief Complaint/Hosp Course Patient is comfortable and supplemental oxygen, status post hemodialysis yesterday. Leukocytosis resolved. ASSESSMENT AND PLAN: - Acute respiratory insufficiency secondary to fluid overload, possible pneumonia. Dr. Cochran is following in pulmonology consultation. Continue breathing treatment, oxygen supplementation. - End-stage renal disease, hemodialysis dependent. Dr. Lake is following patient in nephrology consultation. Continue hemodialysis. - Possible pneumonia. Continue patient on broad-spectrum antibiotics. Monitor chest x-ray. - Gram-positive cocci in clusters bacteremia. Continue antibiotics, follow up on final cultures. Dr. Tilley is following an infection disease consultation. - Diastolic congestive heart failure. Dr. Barnhart is following in cardiology consultation. - Anxiety. Continue Ativan p.r.n. for anxiety. - Hypertension. Continue patient on Procardia and minoxidil and Coreg. - Hypothyroidism. Continue Synthroid 125 mcg daily. - Diabetes mellitus. Continue NovoLog per sliding scale. - Benign prostatic hypertrophy. Continue tamsulosin. - Probable COPD, continue Advair and breathing treatments. Continue heparin for deep venous thrombosis prophylaxis and Protonix for peptic ulcer disease prophylaxis. Further recommendations based on clinical course. Plan of care discussed with Dr. Bonilla. Problems: Exam/Review of Systems Vital Signs Vitals Vital Signs Date Time Temp Pulse Resp B/P Pulse Ox O2 Delivery O2 Flow Rate FiO2 09/09/16 16:15 68 09/09/16 15:18 97.1 18 174/78 98 09/09/16 15:01 2.0 09/09/16 14:33 Nasal Cannula 09/08/16 13:21 60 Intake and Output 09/08/16 09/08/16 09/09/16 15:00 23:00 07:00 Intake Total 350 ml 900 ml 1100 ml Output Total 4300 ml Balance -3950 ml 900 ml 1100 ml Results Result Diagram: 09/09/16 0630 09/09/16 0630 Results 24 hrs Laboratory Tests Test 09/09/16 06:30 09/09/16 07:00 White Blood Count 9.4 Red Blood Count 3.44 L Hemoglobin 10.2 L Hematocrit 32.1 L Mean Corpuscular Volume 93.3 Mean Corpuscular Hemoglobin 29.7 Mean Corpuscular Hemoglobin Concent 31.8 L Red Cell Distribution Width 15.0 H Platelet Count 283 Mean Platelet Volume 9.3 Neutrophils % 78.1 H Lymphocytes % 14.2 L Monocytes % 6.5 Eosinophils % 0.2 Basophils % 0.3 Nucleated Red Blood Cells % 0.0 Neutrophils # 7.3 Lymphocytes # 1.3 Monocytes # 0.6 Eosinophils # 0.0 Basophils # 0.0 Nucleated Red Blood Cells # 0.0 Sodium Level 140 Potassium Level 5.2 H Chloride Level 101 Carbon Dioxide Level 30 Anion Gap 14 Blood Urea Nitrogen 66 H Creatinine 8.31 #H Glucose Level 113 Calcium Level 8.8 Phosphorus Level 6.5 H Magnesium Level 2.0 Blood Gas Specimen Source Blood arterial Arterial Blood Date Drawn 09/09/2016 7:50:17 AM Arterial Blood pH (Temp corrected) 7.488 H Arterial Blood pCO2 (Temp correct) 35.1 Arterial Blood pO2 (Temp corrected) 94.7 H Arterial Blood HCO3 26.0 Arterial Blood Base Excess 2.8 Arterial Blood Oxygen Saturation 96.7 Nikita Test ACCEPTAB Arterial Blood Gas Puncture Site Right Radial Arterial Blood Carboxyhemoglobin 0.2 Arterial Blood Methemoglobin 0.3 Blood Gas A-a O2 Differential 78.0 H Oxyhemoglobin Percent 96.2 Total Hemoglobin 11.5 L Blood Gas Temperature 37.0 Blood Gas Modality NASAL CANNULA FiO2 30.0 Blood Gas Notified Whom JLD Blood Gas Notified Time 09/09/2016 8:06:50 AM Medications Medications Current Medications Ondansetron HCl (Zofran Inj) 4 mg Q6H PRN IV NAUSEA AND/OR VOMITING; Start at 23:00 Acetaminophen (Tylenol Tab) 650 mg Q6H PRN PO PAIN LEVEL 1-3 OR FEVER; Start at 23:00 Morphine Sulfate (morphine) 2 mg Q4H PRN IV PAIN LEVEL 7-10 Last administered on 09/08/16t 10:09; Admin Dose 2 MG; Start 09/07/16 at 23:00 Heparin Sodium (Porcine) (Heparin (5000 Units/0.5 ml)) 5,000 unit Q8 SC ; Start 09/08/16 at 06:00 Hydralazine HCl (Apresoline) 50 mg BID PO Last administered on 09/08/16 20:28 ; Admin Dose 50 MG; Start 09/08/16 at 21:00 Clonidine (Catapres) 0.1 mg Q4H PRN PO SBP greater than 170 Last administered on 09/08/16 10:09; Admin Dose 0.1 MG; Start 09/08/16 at 10:00 Carvedilol (Coreg) 12.5 mg BID PO Last administered on 09/09/16 12:38; Admin Dose 12.5 MG; Start 09/08/16 at 13:00 Minoxidil (Loniten) 5 mg BID PO Last administered on 09/08/16 20:29; Admin Dose 5 MG; Start 09/08/16 at 13:00 Multivit/Ca Carb/ B Cmplx/FA/Prenat (Katlyn-Michael) 1 tab DAILY PO Last administered on 09/09/16 09:20; Admin Dose 1 TAB; Start 09/08/16 at 13:00 Nifedipine (Procardia Xl) 30 mg BID PO Last administered on 09/08/16 20:28; Admin Dose 30 MG; Start 09/08/16 at 13:00 Tamsulosin HCl (Flomax) 0.4 mg HS PO Last administered on 09/08/16 20:27; Admin Dose 0.4 MG; Start 09/08/16 at 21:00 Valsartan (Diovan) 320 mg DAILY PO ; Start 09/08/16 at 13:00 Clonidine (Catapres) 0.1 mg TID PO Last administered on 09/09/16 12:37; Admin Dose 0.1 MG; Start 09/08/16 at 13:30 Docusate Sodium (Colace) 100 mg Q12 PO Last administered on 09/09/16 09:17; Admin Dose 100 MG; Start 09/08/16 at 21:00 Pantoprazole (Protonix Tab) 40 mg DAILY@06 PO Last administered on 09/09/16 06 :08; Admin Dose 40 MG; Start 09/08/16 at 14:00 Salmeterol Xinafoate/ Fluticasone (Advair 500/50 Diskus) 1 inh BID INH Last administered on 09/09/16 09:15; Admin Dose 1 INH; Start 5/30/17 at 21:00 Senna (Senokot) 1 tab DAILY PRN PO CONSTIPATION; Start 09/08/16 at 13:30 Tiotropium [place] (Spiriva) 1 inh BID INH Last administered on 09/09/16 09:14 ; Admin Dose 1 INH; Start 09/08/16 at 21:00 Prednisolone 15 mg 15 mg DAILY PO Last administered on 09/09/16 09:15; Admin Dose 15 MG; Start 09/08/16 at 15:00 Ertapenem 1 gm/ Sodium Chloride 100 ml @ 200 mls/hr Q24H IVPB ; Start 09/09/16 at 17:00 Vancomycin HCl (Vancocin) 250 ml @ 125 mls/hr NOW IVPB Last administered on 17:04; Admin Dose 125 MLS/HR; Start 09/09/16 at 17:00; Stop 09/09/16 at 23:00 CHARLES HAIRSTON September 09, 2016 17:43
[2016-09-09] MEDS: ERTAPENEM SODIUM 1 GM in SOD CHLORIDE 0.9% 100 ML IVPB SCH (21:05)
[2016-09-09] MEDS: TAMSULOSIN (SR) 0.4 MG CAP PO SCH (21:06)
[2016-09-10] VITALS (25 sets, daily range): BP systolic 105–191; BP diastolic 45–83; PULSE 57–167; RESP 16–20
[2016-09-10] MEDS: PANTOPRAZOLE (EC) 40 MG TAB PO SCH (05:38)
[2016-09-10] MEDS: HEPARIN 5,000 UNIT/0.5 ML VIAL SC SCH ×3 (05:39→22:00)
[2016-09-10] MEDS: LEVOTHYROXINE 125 MCG TAB PO SCH (07:45)
[2016-09-10] MEDS: ALBUTEROL/IPRATROPIUM (NEB) 3 ML AMP HHN SCH ×3 (08:14→20:49)
[2016-09-10] MEDS: CALCIUM ACETATE 667 MG CAP PO SCH ×4 (08:53→18:32)
[2016-09-10] MEDS: predniSOLONE 5 MG TAB PO SCH (08:54)
[2016-09-10] MEDS: MULTIVIT/CA CARB/B CMPLX/FA TAB PO SCH (08:54)
[2016-09-10] MEDS: SALMETEROL/FLUTICASONE 500/50 INHA INH SCH ×2 (08:54→20:45)
[2016-09-10] MEDS: DOCUSATE SODIUM 100 MG CAP PO SCH ×2 (08:54→20:38)
[2016-09-10] MEDS: TIOTROPIUM 18 MCG CAPSULE INHA DEV INH SCH ×2 (08:55→20:40)
[2016-09-10] MEDS: MINOXIDIL 2.5 MG TAB PO SCH ×2 (09:00→20:39)
[2016-09-10] MEDS: NIFEdipine (XL) 30 MG TAB PO SCH ×2 (09:00→20:39)
[2016-09-10] MEDS: VALSARTAN 160 MG TAB PO SCH (09:00)
[2016-09-10 10:14] LABS: ADD SCAN DIFF NO
[2016-09-10 10:20] LABS: BASOPHILS % 0.3 % (0.0-2.0); EOSINOPHILS # 0.2 10^3/ul (0.0-0.5); EOSINOPHILS % 1.5 % (0.0-7.0); HEMATOCRIT 29.2 % (42.0-52.0); HEMOGLOBIN 9.4 g/dl (14.0-18.0); LYMPHOCYTES % 18.9 % (15.0-51.0); MEAN CORPUSCULAR HEMOGLOBIN 29.4 pg (29.0-33.0); MEAN CORPUSCULAR HGB CONC 32.2 g/dl (32.0-37.0); MEAN CORPUSCULAR VOLUME 91.3 fl (82.0-101.0); MEAN PLATELET VOLUME 9.1 fl (7.4-10.4); MONOCYTE # 0.8 10^3/ul (0.3-0.9); MONOCYTES % 7.4 % (0.0-11.0); NEUTROPHIL # 7.7 10^3/ul (1.6-7.5); NEUTROPHILS % 71.2 % (39.0-77.0); PLATELET COUNT 252 10^3/UL (140-415); RED CELL DISTRIBUTION WIDTH 14.6 % (11.5-14.5); WHITE BLOOD COUNT 10.8 10^3/ul (4.8-10.8)
[2016-09-10 10:46] LABS: CALCIUM 8.4 mg/dl (8.4-10.2); CREATININE 9.68 mg/dl (0.61-1.24); PHOSPHORUS 7.4 mg/dl (2.5-4.9); POTASSIUM 4.8 mmol/L (3.5-5.1)
--- NOTE | 2016-09-10 11:46 | CONS ---
Date/Time of Note Date/Time of Note DATE: 09/10/16 TIME: 11:44 Assessment/Plan Assessment/Plan Additional Assessment/Plan 1. ASHD without angina, chf resolved 2. CKD to be dialyzed today. 3. Anemia, will resume procrit 4. Elev P, will be sure on P binder Consultation Date/Type/Reason Admit Date/Time September 07, 2016 at 21:46 Type of Consultation: Cardiology Referring Provider: MANDA FARRAR MD Detailed Summary Respiratory: No cough, No shortness of breath Cardiovascular: No chest pain Gastrointestinal: no complaints Genitourinary: no complaints Exam/Review of Systems Vital Signs Vitals Vital Signs Date Time Temp Pulse Resp B/P Pulse Ox O2 Delivery O2 Flow Rate FiO2 09/10/16 11:31 97.8 64 18 128/52 98 09/10/16 08:15 2.0 09/10/16 08:15 Nasal Cannula 09/08/16 13:21 60 Intake and Output 09/09/16 09/09/16 09/10/16 15:00 23:00 07:00 Intake Total 850 ml 900 ml Balance 850 ml 900 ml Exam Neck: No jvd Respiratory: diminished breath sounds (with few dry rales) Cardiovascular: regular rate and rhythm Gastrointestinal: soft Extremities: No edema (and no calf tend) Results Result Diagram: 09/10/16 1005 09/10/16 1005 Results 24 hrs Laboratory Tests Test 09/10/16 10:05 White Blood Count 10.8 Red Blood Count 3.20 L Hemoglobin 9.4 L Hematocrit 29.2 L Mean Corpuscular Volume 91.3 Mean Corpuscular Hemoglobin 29.4 Mean Corpuscular Hemoglobin Concent 32.2 Red Cell Distribution Width 14.6 H Platelet Count 252 Mean Platelet Volume 9.1 Neutrophils % 71.2 Lymphocytes % 18.9 Monocytes % 7.4 Eosinophils % 1.5 Basophils % 0.3 Nucleated Red Blood Cells % 0.0 Neutrophils # 7.7 H Lymphocytes # 2.0 Monocytes # 0.8 Eosinophils # 0.2 Basophils # 0.0 Nucleated Red Blood Cells # 0.0 Sodium Level 137 Potassium Level 4.8 Chloride Level 101 Carbon Dioxide Level 24 Anion Gap 17 H Blood Urea Nitrogen 92 H Creatinine 9.68 H Glucose Level 115 Calcium Level 8.4 Phosphorus Level 7.4 H Medications Medications Current Medications Ondansetron HCl (Zofran Inj) 4 mg Q6H PRN IV NAUSEA AND/OR VOMITING; Start at 23:00 Acetaminophen (Tylenol Tab) 650 mg Q6H PRN PO PAIN LEVEL 1-3 OR FEVER; Start at 23:00 Morphine Sulfate (morphine) 2 mg Q4H PRN IV PAIN LEVEL 7-10 Last administered on 09/08/16 10:09; Admin Dose 2 MG; Start 09/07/16 at 23:00 Heparin Sodium (Porcine) (Heparin (5000 Units/0.5 ml)) 5,000 unit Q8 SC Last administered on 09/09/16 21:20; Admin Dose 5,000 UNIT; Start 09/08/16 at 06:00 Hydralazine HCl (Apresoline) 50 mg BID PO Last administered on 09/09/16 21:07 ; Admin Dose 50 MG; Start 09/08/16 at 21:00 Clonidine (Catapres) 0.1 mg Q4H PRN PO SBP greater than 170 Last administered on 09/08/16 10:09; Admin Dose 0.1 MG; Start 09/08/16 at 10:00 Carvedilol (Coreg) 12.5 mg BID PO Last administered on 09/09/16 21:07; Admin Dose 12.5 MG; Start 09/08/16 at 13:00 Minoxidil (Loniten) 5 mg BID PO Last administered on 09/09/16 21:06; Admin Dose 5 MG; Start 09/08/16 at 13:00 Multivit/Ca Carb/ B Cmplx/FA/Prenat (Katlyn-Michael) 1 tab DAILY PO Last administered on 09/10/16 08:54; Admin Dose 1 TAB; Start 09/08/16 at 13:00 Nifedipine (Procardia Xl) 30 mg BID PO Last administered on 09/09/16 21:05; Admin Dose 30 MG; Start 09/08/16 at 13:00 Tamsulosin HCl (Flomax) 0.4 mg HS PO Last administered on 09/09/16 21:06; Admin Dose 0.4 MG; Start 09/08/16 at 21:00 Valsartan (Diovan) 320 mg DAILY PO ; Start 09/08/16 at 13:00 Clonidine (Catapres) 0.1 mg TID PO Last administered on 09/09/16 21:06; Admin Dose 0.1 MG; Start 09/08/16 at 13:30 Docusate Sodium (Colace) 100 mg Q12 PO Last administered on 09/10/16 08:54; Admin Dose 100 MG; Start 09/08/16 at 21:00 Pantoprazole (Protonix Tab) 40 mg DAILY@06 PO Last administered on 09/09/16 06 :08; Admin Dose 40 MG; Start 09/08/16 at 14:00 Salmeterol Xinafoate/ Fluticasone (Advair 500/50 Diskus) 1 inh BID INH Last administered on 09/10/16 08:54; Admin Dose 1 INH; Start 09/08/16 at 21:00 Senna (Senokot) 1 tab DAILY PRN PO CONSTIPATION; Start 09/08/16 at 13:30 Tiotropium [place] (Spiriva) 1 inh BID INH Last administered on 09/10/16 08:55 ; Admin Dose 1 INH; Start 09/08/16 at 21:00 Prednisolone 15 mg 15 mg DAILY PO Last administered on 09/10/16 08:54; Admin Dose 15 MG; Start 09/08/16 at 15:00 Ertapenem/Sodium Chloride (Invanz/NS) 100 ml @ 200 mls/hr Q24H IVPB Last administered on 09/09/16 21:05; Admin Dose 200 MLS/HR; Start 09/09/16 at 17:00 TRUE GTZ MD Sep 10, 2016 11:46
--- NOTE | 2016-09-10 12:24 | CONS ---
Date/Time of Note Date/Time of Note DATE: 09/10/16 TIME: 12:22 Assessment/Plan Assessment/Plan Additional Assessment/Plan Assessment recommendations; 1. Patient admitted for CHF exacerbation with significant clinical improvement. 2. History of other multiple comorbidities including BPH, hypo-thyroidism, hypertension, and COPD. 2. Interstitial lung disease. Continue current treatment. Patient responding well to current treatment regimen. Consultation Date/Type/Reason Admit Date/Time September 07, 2016 at 21:46 Type of Consultation: Pulmonary Referring Provider: MANDA FARRAR MD 24 HR Interval Summary Free Text/Dictation Patient condition stable. Denies any shortness of breath, chest pain, wheezing cough or sputum production. General exam; elderly male, awake alert currently in no distress. Exam/Review of Systems Vital Signs Vitals Vital Signs Date Time Temp Pulse Resp B/P Pulse Ox O2 Delivery O2 Flow Rate FiO2 09/10/16 12:00 61 09/10/16 11:31 97.8 18 128/52 98 09/10/16 08:15 2.0 09/10/16 08:15 Nasal Cannula 09/08/16 13:21 60 Intake and Output 09/09/16 09/09/16 09/10/16 15:00 23:00 07:00 Intake Total 850 ml 900 ml Balance 850 ml 900 ml Exam HEENT exam is; supple neck, positive JVD. No lymphadenopathy. Midline trachea. No thyromegaly. Pupils are small bilaterally. Chest examined; diminished but clear breath sounds. S1-S2 audible, no murmurs. Regular rhythm. Abdomen exam is; soft, nontender. No organomegaly. Bowel sounds audible. Extremity examination; no peripheral edema. [employer] examination; no focal deficit. Results Result Diagram: 09/10/16 1005 09/10/16 1005 Results 24 hrs Laboratory Tests Test 09/10/16 10:05 White Blood Count 10.8 Red Blood Count 3.20 L Hemoglobin 9.4 L Hematocrit 29.2 L Mean Corpuscular Volume 91.3 Mean Corpuscular Hemoglobin 29.4 Mean Corpuscular Hemoglobin Concent 32.2 Red Cell Distribution Width 14.6 H Platelet Count 252 Mean Platelet Volume 9.1 Neutrophils % 71.2 Lymphocytes % 18.9 Monocytes % 7.4 Eosinophils % 1.5 Basophils % 0.3 Nucleated Red Blood Cells % 0.0 Neutrophils # 7.7 H Lymphocytes # 2.0 Monocytes # 0.8 Eosinophils # 0.2 Basophils # 0.0 Nucleated Red Blood Cells # 0.0 Sodium Level 137 Potassium Level 4.8 Chloride Level 101 Carbon Dioxide Level 24 Anion Gap 17 H Blood Urea Nitrogen 92 H Creatinine 9.68 H Glucose Level 115 Calcium Level 8.4 Phosphorus Level 7.4 H Medications Medications Current Medications Ondansetron HCl (Zofran Inj) 4 mg Q6H PRN IV NAUSEA AND/OR VOMITING; Start at 23:00 Acetaminophen (Tylenol Tab) 650 mg Q6H PRN PO PAIN LEVEL 1-3 OR FEVER; Start at 23:00 Morphine Sulfate (morphine) 2 mg Q4H PRN IV PAIN LEVEL 7-10 Last administered on 09/08/16 10:09; Admin Dose 2 MG; Start 09/07/16 at 23:00 Heparin Sodium (Porcine) (Heparin (5000 Units/0.5 ml)) 5,000 unit Q8 SC Last administered on 09/09/16 21:20; Admin Dose 5,000 UNIT; Start 09/08/16 at 06:00 Hydralazine HCl (Apresoline) 50 mg BID PO Last administered on 09/09/16 21:07 ; Admin Dose 50 MG; Start 09/08/16 at 21:00 Clonidine (Catapres) 0.1 mg Q4H PRN PO SBP greater than 170 Last administered on 09/08/16 10:09; Admin Dose 0.1 MG; Start 09/08/16 at 10:00 Carvedilol (Coreg) 12.5 mg BID PO Last administered on 09/09/16 21:07; Admin Dose 12.5 MG; Start 09/08/16 at 13:00 Minoxidil (Loniten) 5 mg BID PO Last administered on 09/09/16 21:06; Admin Dose 5 MG; Start 09/08/16 at 13:00 Multivit/Ca Carb/ B Cmplx/FA/Prenat (Katlyn-Michael) 1 tab DAILY PO Last administered on 09/10/16 08:54; Admin Dose 1 TAB; Start 09/08/16 at 13:00 Nifedipine (Procardia Xl) 30 mg BID PO Last administered on 09/09/16 21:05; Admin Dose 30 MG; Start 09/08/16 at 13:00 Tamsulosin HCl (Flomax) 0.4 mg HS PO Last administered on 09/09/16 21:06; Admin Dose 0.4 MG; Start 09/08/16 at 21:00 Valsartan (Diovan) 320 mg DAILY PO ; Start 09/08/16 at 13:00 Clonidine (Catapres) 0.1 mg TID PO Last administered on 09/09/16 21:06; Admin Dose 0.1 MG; Start 09/08/16 at 13:30 Docusate Sodium (Colace) 100 mg Q12 PO Last administered on 09/10/16 08:54; Admin Dose 100 MG; Start 09/08/16 at 21:00 Pantoprazole (Protonix Tab) 40 mg DAILY@06 PO Last administered on 09/09/16 06 :08; Admin Dose 40 MG; Start 09/08/16 at 14:00 Salmeterol Xinafoate/ Fluticasone (Advair 500/50 Diskus) 1 inh BID INH Last administered on 09/10/16 08:54; Admin Dose 1 INH; Start 09/08/16 at 21:00 Senna (Senokot) 1 tab DAILY PRN PO CONSTIPATION; Start 09/08/16 at 13:30 Tiotropium [place] (Spiriva) 1 inh BID INH Last administered on 09/10/16 08:55 ; Admin Dose 1 INH; Start 09/08/16 at 21:00 Prednisolone 15 mg 15 mg DAILY PO Last administered on 09/10/16 08:54; Admin Dose 15 MG; Start 09/08/16 at 15:00 Ertapenem/Sodium Chloride (Invanz/NS) 100 ml @ 200 mls/hr Q24H IVPB Last administered on 09/09/16 21:05; Admin Dose 200 MLS/HR; Start 09/09/16 at 17:00 Epoetin Jordon (Epogen (Esrd)) 10,000 units MoWeFr@17 SC ; Start 09/11/16 at 17:00 NADER ANNE Sep 10, 2016 12:24
--- NOTE | 2016-09-10 14:30 | PN ---
DATE: 09/10/2016 INFECTIOUS DISEASE PROGRESS NOTE SUBJECTIVE: Patient is alert, sitting up in bed, complaining of not being able to have a bowel move ment for 3 days. He is in no distress, afebrile. WBC today 10.8, H and H 9.4 and 29.2, platelets 2 52. No shift. BUN 92, creatinine 9.68. MICROBIOLOGY: Blood culture growing on admission staph species. Repeat blood cultures pending, pre liminary negative. DIAGNOSTICS: Chest x-ray from yesterday revealed patchy bilateral upper lobe and lower infiltrates, questionable congestion versus pneumonia. ANTIMICROBIALS: 1. Vancomycin. 2. Invanz. PHYSICAL EXAMINATION: GENERAL: This is a well-developed, well-nourished elderly, [place] man who is awake, in no distres s. HEENT: Head atraumatic, normocephalic. Sclerae are anicteric. Buccal mucosa dry. NECK: Supple, trachea midline. CHEST: Chest rise is symmetrical. Breath sounds diminished to the bases. HEART: S1, S2. ABDOMEN: Soft. Bowel tones present. EXTREMITIES: Without cyanosis. SKIN: No jaundice, no cyanosis. ASSESSMENT: 1. Systemic inflammatory response syndrome with bacteremia, possibly contaminant. 2. Congestive heart failure exacerbation. 3. Constipation. 4. Chronic kidney disease, hemodialysis dependent. 5. Diabetes. 6. Benign prostatic hypertrophy. PLAN: The patient remains stable. We will continue him on the current regimen and start him on lax atives if he is not on it yet. Follow final cultures. Follow recommendations of consultants. Dictated By: TRISH CUELLO [employer] WORK[employer] for [employer]EN[employer] ZELAYA[employer] Conf#: [id number] DID#: [id number]
--- NOTE | 2016-09-10 14:47 | PN ---
Date/Time of Note Date/Time of Note DATE: 09/10/16 TIME: 14:38 Assessment/Plan VTE Prophylaxis VTE Prophylaxis Intervention: other Lines/Catheters [facility] C[facility] Type [facility]from [facility] Saline Lock Urinary Cath still in place: No Assessment/Plan Assessment/Plan - Acute respiratory insufficiency secondary to fluid overload, possible pneumonia. Dr. Cochran is following in pulmonology consultation. Continue breathing treatment, oxygen supplementation. - End-stage renal disease, hemodialysis dependent. Dr. Lake is following patient in nephrology consultation. Continue hemodialysis. - Possible pneumonia. Continue patient on broad-spectrum antibiotics. Monitor chest x-ray. - Gram-positive cocci in clusters bacteremia. Continue antibiotics, follow up on final cultures. Dr. Tilley is following an infection disease consultation. - Diastolic congestive heart failure. Dr. Barnhart is following in cardiology consultation. - Anxiety. Continue Ativan p.r.n. for anxiety. - Hypertension. Continue patient on Procardia and minoxidil and Coreg. - Hypothyroidism. Continue Synthroid 125 mcg daily. - Diabetes mellitus. Continue NovoLog per sliding scale. - Benign prostatic hypertrophy. Continue tamsulosin. - Probable COPD, continue Advair and breathing treatments. Continue heparin for deep venous thrombosis prophylaxis and Protonix for peptic ulcer disease prophylaxis. Further recommendations based on clinical course. Plan of care discussed with Dr. Bonilla. Subjective 24 Hr Interval Summary Free Text/Dictation sleeping, denies chest pain Patient is comfortable and supplemental oxygen,HD today. C/O constipation- will give Lactulose , dw staff Respiratory: no complaints Cardiovascular: no complaints Gastrointestinal: constipation Exam/Review of Systems Vital Signs Vitals Vital Signs Date Time Temp Pulse Resp B/P Pulse Ox O2 Delivery O2 Flow Rate FiO2 09/10/16 12:00 61 09/10/16 11:31 97.8 18 128/52 98 09/10/16 08:15 2.0 09/10/16 08:15 Nasal Cannula 09/08/16 13:21 60 Intake and Output 09/09/16 09/09/16 09/10/16 14:59 22:59 06:59 Intake Total 850 ml 900 ml Balance 850 ml 900 ml Exam Constitutional: alert, oriented, well developed Eyes: nl conjunctiva Neck: non-tender, supple Respiratory: clear to auscultation, normal air movement Cardiovascular: nl pulses, regular rate and rhythm Gastrointestinal: non-tender, soft Musculoskeletal: nl extremities to inspection Extremities: normal pulses Neurological: nl mental status, nl speech Lymph: nontender Results Result Diagram: 09/10/16 1005 09/10/16 1005 Results 24 hrs Laboratory Tests Test 09/10/16 10:05 White Blood Count 10.8 Red Blood Count 3.20 L Hemoglobin 9.4 L Hematocrit 29.2 L Mean Corpuscular Volume 91.3 Mean Corpuscular Hemoglobin 29.4 Mean Corpuscular Hemoglobin Concent 32.2 Red Cell Distribution Width 14.6 H Platelet Count 252 Mean Platelet Volume 9.1 Neutrophils % 71.2 Lymphocytes % 18.9 Monocytes % 7.4 Eosinophils % 1.5 Basophils % 0.3 Nucleated Red Blood Cells % 0.0 Neutrophils # 7.7 H Lymphocytes # 2.0 Monocytes # 0.8 Eosinophils # 0.2 Basophils # 0.0 Nucleated Red Blood Cells # 0.0 Sodium Level 137 Potassium Level 4.8 Chloride Level 101 Carbon Dioxide Level 24 Anion Gap 17 H Blood Urea Nitrogen 92 H Creatinine 9.68 H Glucose Level 115 Calcium Level 8.4 Phosphorus Level 7.4 H Medications Medications Current Medications Ondansetron HCl (Zofran Inj) 4 mg Q6H PRN IV NAUSEA AND/OR VOMITING; Start at 23:00 Acetaminophen (Tylenol Tab) 650 mg Q6H PRN PO PAIN LEVEL 1-3 OR FEVER; Start at 23:00 Morphine Sulfate (morphine) 2 mg Q4H PRN IV PAIN LEVEL 7-10 Last administered on 09/08/16 10:09; Admin Dose 2 MG; Start 09/07/16 at 23:00 Heparin Sodium (Porcine) (Heparin (5000 Units/0.5 ml)) 5,000 unit Q8 SC Last administered on 09/09/16 21:20; Admin Dose 5,000 UNIT; Start 09/08/16 at 06:00 Hydralazine HCl (Apresoline) 50 mg BID PO Last administered on 09/09/16 21:07 ; Admin Dose 50 MG; Start 09/08/16 at 21:00 Clonidine (Catapres) 0.1 mg Q4H PRN PO SBP greater than 170 Last administered on 09/08/16 10:09; Admin Dose 0.1 MG; Start 09/08/16 at 10:00 Carvedilol (Coreg) 12.5 mg BID PO Last administered on 09/09/16 21:07; Admin Dose 12.5 MG; Start 09/08/16 at 13:00 Minoxidil (Loniten) 5 mg BID PO Last administered on 09/09/16 21:06; Admin Dose 5 MG; Start 09/08/16 at 13:00 Multivit/Ca Carb/ B Cmplx/FA/Prenat (Katlyn-Michael) 1 tab DAILY PO Last administered on 09/10/16 08:54; Admin Dose 1 TAB; Start 09/08/16 at 13:00 Nifedipine (Procardia Xl) 30 mg BID PO Last administered on 09/09/16 21:05; Admin Dose 30 MG; Start 09/08/16 at 13:00 Tamsulosin HCl (Flomax) 0.4 mg HS PO Last administered on 09/09/16 21:06; Admin Dose 0.4 MG; Start 09/08/16 at 21:00 Valsartan (Diovan) 320 mg DAILY PO ; Start 09/08/16 at 13:00 Clonidine (Catapres) 0.1 mg TID PO Last administered on 09/09/16 21:06; Admin Dose 0.1 MG; Start 09/08/16 at 13:30 Docusate Sodium (Colace) 100 mg Q12 PO Last administered on 09/10/16 08:54; Admin Dose 100 MG; Start 09/08/16 at 21:00 Pantoprazole (Protonix Tab) 40 mg DAILY@06 PO Last administered on 09/09/16 06 :08; Admin Dose 40 MG; Start 09/08/16 at 14:00 Salmeterol Xinafoate/ Fluticasone (Advair 500/50 Diskus) 1 inh BID INH Last administered on 09/10/16 08:54; Admin Dose 1 INH; Start 09/08/16 at 21:00 Senna (Senokot) 1 tab DAILY PRN PO CONSTIPATION Last administered on 09/10/16 13:02; Admin Dose 1 TAB; Start 09/08/16 at 13:30 Tiotropium [place] (Spiriva) 1 inh BID INH Last administered on 09/10/16 08:55 ; Admin Dose 1 INH; Start 09/08/16 at 21:00 Prednisolone 15 mg 15 mg DAILY PO Last administered on 09/10/16 08:54; Admin Dose 15 MG; Start 09/08/16 at 15:00 Ertapenem/Sodium Chloride (Invanz/NS) 100 ml @ 200 mls/hr Q24H IVPB Last administered on 09/09/16 21:05; Admin Dose 200 MLS/HR; Start 09/09/16 at 17:00 Epoetin [place] (Epogen (Esrd)) 10,000 units MoWeFr@17 SC ; Start 09/11/16 at 17:00 CRISSY MCKEON Sep 10, 2016 14:47
[2016-09-10] MEDS ORDERED: LACTULOSE 30ML CUP PO PRN (15:30)
[2016-09-10] MEDS: ERTAPENEM SODIUM 1 GM in SOD CHLORIDE 0.9% 100 ML IVPB SCH ×2 (17:00→18:32)
[2016-09-10] MEDS: TAMSULOSIN (SR) 0.4 MG CAP PO SCH (20:45)
--- NOTE | 2016-09-10 22:53 | CONS ---
Date/Time of Note Date/Time of Note DATE: 09/10/16 TIME: 22:42 Assessment/Plan Assessment/Plan Chief Complaint/Hosp Course Impression: Tachycardia- has had recurrent NSVT, but sustained arrhythmia 09/08 appears to have been likely a SVT with aberrancy. no ekg available at the time of arrhythmia. pt denies symptoms, no syncope. no recurrence. would cont tele monitoring, potassium improved with iHD. - cont tele monitoring - add aspirin 81mg daily - increase carvedilol to 25mg po bid HTN- variable bp, currently high but previously 90s-100s. - increase coreg to 25mg po bid - cont current regimen - if bp remains high would titrate carvedilol CAD - stable, s/p PCI 12/2015 with IZABELLA x 1 to RCA, no change on 01/2016 cath, small d2, managed medically - cont statin - unclear why patient is off antiplt medication add back asa 81mg daily, ok to hold off plavix given > 6 mo post PCI and had sig anemia previously Acute on chronic diastolic HF- difficult fluid mgmt with iHD - symptomatically improved - cont fluid removal as tolerated Problems: Consultation Date/Type/Reason Admit Date/Time September 07, 2016 at 21:46 Initial Consult Date 09/09/16 Type of Consultation: cardiology Referring Provider: MANDA FARRAR MD 24 HR Interval Summary Free Text/Dictation pt seen this afternoon, was reporting chest pressure and sob while on iHD which he has chronically. pt denies any palpitations, dizziness. tele reviewed: NSR, has pvcs, nsvt max 12 beats Exam/Review of Systems Vital Signs Vitals Vital Signs Date Time Temp Pulse Resp B/P Pulse Ox O2 Delivery O2 Flow Rate FiO2 09/10/16 21:35 167 09/10/16 20:50 2.0 09/10/16 20:50 16 99 Nasal Cannula 09/10/16 20:08 98.7 191/83 09/08/16 13:21 60 Intake and Output 09/09/16 09/09/16 09/10/16 15:00 23:00 07:00 Intake Total 850 ml 900 ml Balance 850 ml 900 ml Exam Constitutional: alert, oriented Psych: nl mood/affect, no complaints Head: atraumatic, normocephalic Eyes: EOMI, nl conjunctiva ENMT: nl external ears & nose, nl lips & teeth, nl nasal mucosa & septum Neck: non-tender, supple, No jvd Respiratory: clear to auscultation, normal air movement Cardiovascular: nl pulses, regular rate and rhythm, systolic murmur, No S3, No S4, No bruits, No diastolic murmur, No irregular rhythm, No jugular venous distention (JVD) Gastrointestinal: non-tender, soft Musculoskeletal: nl extremities to inspection, nl gait and stance Extremities: normal pulses Neurological: DRY MOLDER II-XII intact, nl mental status, nl speech, nl strength Skin: nl turgor Results Result Diagram: 09/10/16 1005 09/10/16 1005 Results 24 hrs Laboratory Tests Test 09/10/16 10:05 White Blood Count 10.8 Red Blood Count 3.20 L Hemoglobin 9.4 L Hematocrit 29.2 L Mean Corpuscular Volume 91.3 Mean Corpuscular Hemoglobin 29.4 Mean Corpuscular Hemoglobin Concent 32.2 Red Cell Distribution Width 14.6 H Platelet Count 252 Mean Platelet Volume 9.1 Neutrophils % 71.2 Lymphocytes % 18.9 Monocytes % 7.4 Eosinophils % 1.5 Basophils % 0.3 Nucleated Red Blood Cells % 0.0 Neutrophils # 7.7 H Lymphocytes # 2.0 Monocytes # 0.8 Eosinophils # 0.2 Basophils # 0.0 Nucleated Red Blood Cells # 0.0 Sodium Level 137 Potassium Level 4.8 Chloride Level 101 Carbon Dioxide Level 24 Anion Gap 17 H Blood Urea Nitrogen 92 H Creatinine 9.68 H Glucose Level 115 Calcium Level 8.4 Phosphorus Level 7.4 H Medications Medications Current Medications Ondansetron HCl (Zofran Inj) 4 mg Q6H PRN IV NAUSEA AND/OR VOMITING; Start at 23:00 Acetaminophen (Tylenol Tab) 650 mg Q6H PRN PO PAIN LEVEL 1-3 OR FEVER; Start at 23:00 Morphine Sulfate (morphine) 2 mg Q4H PRN IV PAIN LEVEL 7-10 Last administered on 09/08/16 10:09; Admin Dose 2 MG; Start 09/07/16 at 23:00 Heparin Sodium (Porcine) (Heparin (5000 Units/0.5 ml)) 5,000 unit Q8 SC Last administered on 09/09/16 21:20; Admin Dose 5,000 UNIT; Start 09/08/16 at 06:00 Hydralazine HCl (Apresoline) 50 mg BID PO Last administered on 09/10/16 20:39; Admin Dose 50 MG; Start 09/08/16 at 21:00 Clonidine (Catapres) 0.1 mg Q4H PRN PO SBP greater than 170 Last administered on 09/10/16 19:39; Admin Dose 0.1 MG; Start 09/08/16 at 10:00 Carvedilol (Coreg) 12.5 mg BID PO Last administered on 09/10/16 20:38; Admin Dose 12.5 MG; Start 09/08/16 at 13:00 Minoxidil (Loniten) 5 mg BID PO Last administered on 09/10/16 20:39; Admin Dose 5 MG; Start 09/08/16 at 13:00 Multivit/Ca Carb/ B Cmplx/FA/Prenat (Katlyn-Michael) 1 tab DAILY PO Last administered on 09/10/16 08:54; Admin Dose 1 TAB; Start 09/08/16 at 13:00 Nifedipine (Procardia Xl) 30 mg BID PO Last administered on 09/10/16 20:39; Admin Dose 30 MG; Start 09/08/16 at 13:00 Tamsulosin HCl (Flomax) 0.4 mg HS PO Last administered on 09/10/16 20:45; Admin Dose 0.4 MG; Start 09/08/16 at 21:00 Valsartan (Diovan) 320 mg DAILY PO ; Start 09/08/16 at 13:00 Clonidine (Catapres) 0.1 mg TID PO Last administered on 09/09/16 21:06; Admin Dose 0.1 MG; Start 09/08/16 at 13:30 Docusate Sodium (Colace) 100 mg Q12 PO Last administered on 09/10/16 20:38; Admin Dose 100 MG; Start 09/08/16 at 21:00 Pantoprazole (Protonix Tab) 40 mg DAILY@06 PO Last administered on 09/09/16 06 :08; Admin Dose 40 MG; Start 09/08/16 at 14:00 Salmeterol Xinafoate/ Fluticasone (Advair 500/50 Diskus) 1 inh BID INH Last administered on 09/10/16 20:45; Admin Dose 1 INH; Start 09/08/16 at 21:00 Senna (Senokot) 1 tab DAILY PRN PO CONSTIPATION Last administered on 09/10/16 13:02; Admin Dose 1 TAB; Start 09/08/16 at 13:30 Tiotropium [place] (Spiriva) 1 inh BID INH Last administered on 09/10/16 20:40 ; Admin Dose 1 INH; Start 09/08/16 at 21:00 Prednisolone 15 mg 15 mg DAILY PO Last administered on 09/10/16 08:54; Admin Dose 15 MG; Start 09/08/16 at 15:00 Ertapenem/Sodium Chloride (Invanz/NS) 100 ml @ 200 mls/hr Q24H IVPB Last administered on 09/10/16 18:32; Admin Dose 200 MLS/HR; Start 09/09/16 at 17:00 Epoetin Jordon (Epogen (Esrd)) 10,000 units MoWeFr@17 SC ; Start 09/11/16 at 17:00 Miscellaneous Information (*Rx Drug Level Order Reminder*) 1 ONCE ONCE XX ; Start 09/11/16 at 05:00; Stop 09/11/16 at 05:01 Lactulose (Enulose) 20 gm Q6H PRN PO CONSTIPATION; Start 09/10/16 at 15:30 TATA CAVANAUGH Sep 10, 2016 22:53
[2016-09-11] VITALS (17 sets, daily range): BP systolic 97–136; BP diastolic 41–64; PULSE 61–70; RESP 16–18
[2016-09-11] MEDS: HEPARIN 5,000 UNIT/0.5 ML VIAL SC SCH ×3 (05:53→21:21)
[2016-09-11] MEDS: PANTOPRAZOLE (EC) 40 MG TAB PO SCH (05:54)
[2016-09-11 06:54] LABS: ADD SCAN DIFF NO
[2016-09-11 06:58] LABS: BASOPHILS % 0.3 % (0.0-2.0); EOSINOPHILS # 0.1 10^3/ul (0.0-0.5); EOSINOPHILS % 1.4 % (0.0-7.0); HEMATOCRIT 30.5 % (42.0-52.0); HEMOGLOBIN 10.2 g/dl (14.0-18.0); LYMPHOCYTES % 19.5 % (15.0-51.0); MEAN CORPUSCULAR HEMOGLOBIN 29.7 pg (29.0-33.0); MEAN CORPUSCULAR HGB CONC 33.4 g/dl (32.0-37.0); MEAN CORPUSCULAR VOLUME 88.7 fl (82.0-101.0); MEAN PLATELET VOLUME 9.3 fl (7.4-10.4); NEUTROPHIL # 6.9 10^3/ul (1.6-7.5); PLATELET COUNT 256 10^3/UL (140-415); RED BLOOD COUNT 3.44 10^6/ul (4.70-6.10); RED CELL DISTRIBUTION WIDTH 14.6 % (11.5-14.5); WHITE BLOOD COUNT 10.2 10^3/ul (4.8-10.8)
[2016-09-11 07:24] LABS: CALCIUM 8.5 mg/dl (8.4-10.2); CREATININE 6.34 mg/dl (0.61-1.24); POTASSIUM 3.8 mmol/L (3.5-5.1)
[2016-09-11 07:40] LABS: IRON 118 ug/dl (35-150)
[2016-09-11 07:49] LABS: TOTAL IRON BINDING CAPACITY 156 ug/dl (241-421)
[2016-09-11] MEDS: ALBUTEROL/IPRATROPIUM (NEB) 3 ML AMP HHN SCH ×3 (08:11→19:56)
[2016-09-11] MEDS: CALCIUM ACETATE 667 MG CAP PO SCH ×3 (08:33→18:20)
[2016-09-11] MEDS: LEVOTHYROXINE 125 MCG TAB PO SCH (08:34)
[2016-09-11] MEDS: VALSARTAN 160 MG TAB PO SCH (09:00)
[2016-09-11] MEDS: MINOXIDIL 2.5 MG TAB PO SCH ×2 (09:00→21:00)
[2016-09-11] MEDS: NIFEdipine (XL) 30 MG TAB PO SCH ×2 (09:00→21:00)
[2016-09-11] MEDS: SALMETEROL/FLUTICASONE 500/50 INHA INH SCH ×2 (09:40→21:19)
[2016-09-11] MEDS: DOCUSATE SODIUM 100 MG CAP PO SCH ×2 (09:48→21:20)
[2016-09-11] MEDS: predniSOLONE 5 MG TAB PO SCH (09:49)
[2016-09-11] MEDS: ASPIRIN (EC) 81 MG TAB PO SCH (09:49)
[2016-09-11] MEDS: MULTIVIT/CA CARB/B CMPLX/FA TAB PO SCH (09:50)
--- NOTE | 2016-09-11 09:50 | CONS ---
Date/Time of Note Date/Time of Note DATE: 09/11/16 TIME: 09:43 Assessment/Plan Assessment/Plan Chief Complaint/Hosp Course 1. End-stage renal disease. He is usually on dialysis Wednesday. 2. Congestive heart failure he is short of breath and has evidence of lung congestion on physical exam. I will order 2 hours of dry ultrafiltration today. He could potentially go home today and go for his routine hemodialysis treatment tomorrow in the dialysis unit. 3. Coronary artery disease. He has no chest pain now. Problems: Consultation Date/Type/Reason Admit Date/Time September 07, 2016 at 21:46 Initial Consult Date 09/09/16 Type of Consultation: cardiology Referring Provider: MANDA FARRAR MD 24 HR Interval Summary Free Text/Dictation He is SOB Exam/Review of Systems Vital Signs Vitals Vital Signs Date Time Temp Pulse Resp B/P Pulse Ox O2 Delivery O2 Flow Rate FiO2 09/11/16 08:13 68 18 98 Nasal Cannula 2.0 09/11/16 07:06 97.9 116/56 09/08/16 13:21 60 Intake and Output 09/10/16 09/10/16 09/11/16 15:00 23:00 07:00 Intake Total 1000 ml 700 ml Output Total 4000 ml Balance -3000 ml 700 ml Exam Constitutional: alert, oriented Respiratory: crackles/rales Cardiovascular: regular rate and rhythm Gastrointestinal: soft Musculoskeletal: nl extremities to inspection Results Result Diagram: 09/11/16 0545 09/11/16 0545 Results 24 hrs Laboratory Tests Test 09/10/16 10:05 09/11/16 05:45 White Blood Count 10.8 10.2 Red Blood Count 3.20 L 3.44 L Hemoglobin 9.4 L 10.2 L Hematocrit 29.2 L 30.5 L Mean Corpuscular Volume 91.3 88.7 Mean Corpuscular Hemoglobin 29.4 29.7 Mean Corpuscular Hemoglobin Concent 32.2 33.4 Red Cell Distribution Width 14.6 H 14.6 H Platelet Count 252 256 Mean Platelet Volume 9.1 9.3 Neutrophils % 71.2 68.0 Lymphocytes % 18.9 19.5 Monocytes % 7.4 10.0 Eosinophils % 1.5 1.4 Basophils % 0.3 0.3 Nucleated Red Blood Cells % 0.0 0.0 Neutrophils # 7.7 H 6.9 Lymphocytes # 2.0 2.0 Monocytes # 0.8 1.0 H Eosinophils # 0.2 0.1 Basophils # 0.0 0.0 Nucleated Red Blood Cells # 0.0 0.0 Sodium Level 137 134 L Potassium Level 4.8 3.8 Chloride Level 101 91 #L Carbon Dioxide Level 24 29 Anion Gap 17 H 18 H Blood Urea Nitrogen 92 H 53 #H Creatinine 9.68 H 6.34 #H Glucose Level 115 94 Calcium Level 8.4 8.5 Phosphorus Level 7.4 H Iron Level 118 Total Iron Binding Capacity 156 L Percent Iron Saturation 76 H Ferritin 614.0 H Random Vancomycin Level 10.0 Medications Medications Current Medications Ondansetron HCl (Zofran Inj) 4 mg Q6H PRN IV NAUSEA AND/OR VOMITING; Start at 23:00 Acetaminophen (Tylenol Tab) 650 mg Q6H PRN PO PAIN LEVEL 1-3 OR FEVER; Start at 23:00 Morphine Sulfate (morphine) 2 mg Q4H PRN IV PAIN LEVEL 7-10 Last administered on 09/08/16 10:09; Admin Dose 2 MG; Start 09/07/16 at 23:00 Heparin Sodium (Porcine) (Heparin (5000 Units/0.5 ml)) 5,000 unit Q8 SC Last administered on 09/09/16 21:20; Admin Dose 5,000 UNIT; Start 09/08/16 at 06:00 Hydralazine HCl (Apresoline) 50 mg BID PO Last administered on 09/10/16 20:39; Admin Dose 50 MG; Start 09/08/16 at 21:00 Clonidine (Catapres) 0.1 mg Q4H PRN PO SBP greater than 170 Last administered on 09/10/16 19:39; Admin Dose 0.1 MG; Start 09/08/16 at 10:00 Carvedilol (Coreg) 12.5 mg BID PO Last administered on 09/10/16 20:38; Admin Dose 12.5 MG; Start 09/08/16 at 13:00 Minoxidil (Loniten) 5 mg BID PO Last administered on 09/10/16 20:39; Admin Dose 5 MG; Start 09/08/16 at 13:00 Multivit/Ca Carb/ B Cmplx/FA/Prenat (Katlyn-Michael) 1 tab DAILY PO Last administered on 09/10/16 08:54; Admin Dose 1 TAB; Start 09/08/16 at 13:00 Nifedipine (Procardia Xl) 30 mg BID PO Last administered on 09/10/16 20:39; Admin Dose 30 MG; Start 09/08/16 at 13:00 Tamsulosin HCl (Flomax) 0.4 mg HS PO Last administered on 09/10/16 20:45; Admin Dose 0.4 MG; Start 09/08/16 at 21:00 Valsartan (Diovan) 320 mg DAILY PO ; Start 09/08/16 at 13:00 Clonidine (Catapres) 0.1 mg TID PO Last administered on 09/09/16 21:06; Admin Dose 0.1 MG; Start 09/08/16 at 13:30 Docusate Sodium (Colace) 100 mg Q12 PO Last administered on 09/10/16 20:38; Admin Dose 100 MG; Start 09/08/16 at 21:00 Pantoprazole (Protonix Tab) 40 mg DAILY@06 PO Last administered on 09/11/16 05: 54; Admin Dose 40 MG; Start 09/08/16 at 14:00 Salmeterol Xinafoate/ Fluticasone (Advair 500/50 Diskus) 1 inh BID INH Last administered on 09/10/16 20:45; Admin Dose 1 INH; Start 09/08/16 at 21:00 Senna (Senokot) 1 tab DAILY PRN PO CONSTIPATION Last administered on 09/10/16 13:02; Admin Dose 1 TAB; Start 09/08/16 at 13:30 Tiotropium [place] (Spiriva) 1 inh BID INH Last administered on 09/10/16 20:40 ; Admin Dose 1 INH; Start 09/08/16 at 21:00 Prednisolone 15 mg 15 mg DAILY PO Last administered on 09/10/16 08:54; Admin Dose 15 MG; Start 09/08/16 at 15:00 Ertapenem/Sodium Chloride (Invanz/NS) 100 ml @ 200 mls/hr Q24H IVPB Last administered on 09/10/16 18:32; Admin Dose 200 MLS/HR; Start 09/09/16 at 17:00 Epoetin Jordon (Epogen (Esrd)) 10,000 units MoWeFr@17 SC ; Start 09/11/16 at 17:00 Lactulose (Enulose) 20 gm Q6H PRN PO CONSTIPATION; Start 09/10/16 at 15:30 Aspirin (Halfprin) 81 mg DAILY PO ; Start 09/11/16 at 09:00 CHANTELL HICKMAN MD Sep 11, 2016 09:50
[2016-09-11] MEDS ORDERED: VANCOMYCIN 1 GM in NS 250 ML IVPB SCH (10:30)
--- NOTE | 2016-09-11 12:10 | CONS ---
Date/Time of Note Date/Time of Note DATE: 09/11/16 TIME: 12:08 Assessment/Plan Assessment/Plan Additional Assessment/Plan Assessment and recommendations; 1. Patient admitted for shortness of breath due to CHF with marked overall clinical improvement. 2. End-stage renal disease, on hemodialysis. 3. Hypo-thyroidism. 4. Interstitial lung disease. 5. COPD. 6. Hypertension. Continue current treatment. Patient responding well to current treatment regimen. Consultation Date/Type/Reason Admit Date/Time September 07, 2016 at 21:46 Type of Consultation: Pulmonary Referring Provider: MANDA FARRAR MD 24 HR Interval Summary Free Text/Dictation Patient doing very well. Denies any shortness of breath, chest pain, wheezing. Denies any cough or sputum production. General exam; elderly male, awake alert currently in no distress. Able to lay down flat in bed. Exam/Review of Systems Vital Signs Vitals Vital Signs Date Time Temp Pulse Resp B/P Pulse Ox O2 Delivery O2 Flow Rate FiO2 09/11/16 11:03 97.3 64 18 106/64 99 09/11/16 08:13 Nasal Cannula 2.0 09/08/16 13:21 60 Intake and Output 09/10/16 09/10/16 09/11/16 15:00 23:00 07:00 Intake Total 1000 ml 700 ml Output Total 4000 ml Balance -3000 ml 700 ml Exam HEENT exam is; supple neck, positive JVD. No lymphadenopathy. Midline trachea. No thyromegaly. Pharynx is clear. Pupils are small bilaterally. Chest examined; diminished but clear vessel. S1-S2 audible, no murmurs. Regular rhythm. Abdomen examination; soft, nontender. No organomegaly. Bowel sounds audible. Extremity examination; no peripheral edema. [employer] examination; no focal deficit. Results Result Diagram: 09/11/16 0545 09/11/16 0545 Results 24 hrs Laboratory Tests Test 09/11/16 05:45 White Blood Count 10.2 Red Blood Count 3.44 L Hemoglobin 10.2 L Hematocrit 30.5 L Mean Corpuscular Volume 88.7 Mean Corpuscular Hemoglobin 29.7 Mean Corpuscular Hemoglobin Concent 33.4 Red Cell Distribution Width 14.6 H Platelet Count 256 Mean Platelet Volume 9.3 Neutrophils % 68.0 Lymphocytes % 19.5 Monocytes % 10.0 Eosinophils % 1.4 Basophils % 0.3 Nucleated Red Blood Cells % 0.0 Neutrophils # 6.9 Lymphocytes # 2.0 Monocytes # 1.0 H Eosinophils # 0.1 Basophils # 0.0 Nucleated Red Blood Cells # 0.0 Sodium Level 134 L Potassium Level 3.8 Chloride Level 91 #L Carbon Dioxide Level 29 Anion Gap 18 H Blood Urea Nitrogen 53 #H Creatinine 6.34 #H Glucose Level 94 Calcium Level 8.5 Iron Level 118 Total Iron Binding Capacity 156 L Percent Iron Saturation 76 H Ferritin 614.0 H Random Vancomycin Level 10.0 Medications Medications Current Medications Ondansetron HCl (Zofran Inj) 4 mg Q6H PRN IV NAUSEA AND/OR VOMITING; Start at 23:00 Acetaminophen (Tylenol Tab) 650 mg Q6H PRN PO PAIN LEVEL 1-3 OR FEVER; Start at 23:00 Morphine Sulfate (morphine) 2 mg Q4H PRN IV PAIN LEVEL 7-10 Last administered on 09/08/16 10:09; Admin Dose 2 MG; Start 09/07/16 at 23:00 Heparin Sodium (Porcine) (Heparin (5000 Units/0.5 ml)) 5,000 unit Q8 SC Last administered on 09/09/16 21:20; Admin Dose 5,000 UNIT; Start 09/08/16 at 06:00 Hydralazine HCl (Apresoline) 50 mg BID PO Last administered on 09/10/16 20:39; Admin Dose 50 MG; Start 09/08/16 at 21:00 Clonidine (Catapres) 0.1 mg Q4H PRN PO SBP greater than 170 Last administered on 09/10/16 19:39; Admin Dose 0.1 MG; Start 09/08/16 at 10:00 Carvedilol (Coreg) 12.5 mg BID PO Last administered on 09/10/16 20:38; Admin Dose 12.5 MG; Start 09/08/16 at 13:00 Minoxidil (Loniten) 5 mg BID PO Last administered on 09/10/16 20:39; Admin Dose 5 MG; Start 09/08/16 at 13:00 Multivit/Ca Carb/ B Cmplx/FA/Prenat (Katlyn-Michael) 1 tab DAILY PO Last administered on 09/11/16 09:50; Admin Dose 1 TAB; Start 09/08/16 at 13:00 Nifedipine (Procardia Xl) 30 mg BID PO Last administered on 09/10/16 20:39; Admin Dose 30 MG; Start 09/08/16 at 13:00 Tamsulosin HCl (Flomax) 0.4 mg HS PO Last administered on 09/10/16 20:45; Admin Dose 0.4 MG; Start 09/08/16 at 21:00 Valsartan (Diovan) 320 mg DAILY PO ; Start 09/08/16 at 13:00 Clonidine (Catapres) 0.1 mg TID PO Last administered on 09/09/16 21:06; Admin Dose 0.1 MG; Start 09/08/16 at 13:30 Docusate Sodium (Colace) 100 mg Q12 PO Last administered on 09/11/16 09:48; Admin Dose 100 MG; Start 09/08/16 at 21:00 Pantoprazole (Protonix Tab) 40 mg DAILY@06 PO Last administered on 09/11/16 05: 54; Admin Dose 40 MG; Start 09/08/16 at 14:00 Salmeterol Xinafoate/ Fluticasone (Advair 500/50 Diskus) 1 inh BID INH Last administered on 09/11/16 09:40; Admin Dose 1 INH; Start 09/08/16 at 21:00 Senna (Senokot) 1 tab DAILY PRN PO CONSTIPATION Last administered on 09/10/16 13:02; Admin Dose 1 TAB; Start 09/08/16 at 13:30 Tiotropium [place] (Spiriva) 1 inh BID INH Last administered on 09/10/16 20:40 ; Admin Dose 1 INH; Start 09/08/16 at 21:00 Prednisolone 15 mg 15 mg DAILY PO Last administered on 09/11/16 09:49; Admin Dose 15 MG; Start 09/08/16 at 15:00 Ertapenem/Sodium Chloride (Invanz/NS) 100 ml @ 200 mls/hr Q24H IVPB Last administered on 09/10/16 18:32; Admin Dose 200 MLS/HR; Start 09/09/16 at 17:00 Epoetin Jordon (Epogen (Esrd)) 10,000 units MoWeFr@17 SC ; Start 09/11/16 at 17:00 Lactulose (Enulose) 20 gm Q6H PRN PO CONSTIPATION; Start 09/10/16 at 15:30 Aspirin 81 mg 81 mg DAILY PO Last administered on 09/11/16 09:49; Admin Dose 81 MG; Start 09/11/16 at 09:00 Vancomycin HCl (Vancocin) 250 ml @ 125 mls/hr ONCE IVPB Last administered on 11:04; Admin Dose 125 MLS/HR; Start 09/11/16 at 10:30; Stop 09/11/16 at 16 :00 NADER ANNE Sep 11, 2016 12:10
[2016-09-11] MEDS: TIOTROPIUM 18 MCG CAPSULE INHA DEV INH SCH ×2 (13:29→21:19)
--- NOTE | 2016-09-11 13:52 | PN ---
Date/Time of Note Date/Time of Note DATE: 09/11/16 TIME: 13:46 Assessment/Plan VTE Prophylaxis VTE Prophylaxis Intervention: SCD's Lines/Catheters IV Catheter Type (from [facility]): [facility] [facility] Urinary Cath still in place: No Assessment/Plan Chief Complaint/Hosp Course Patient is comfortable and supplemental oxygen, stated that he wants to go home , refusing physical therapy stating that she is able to go to the restroom with no problems. Patient had SVT during hemodialysis yesterday, currently in sinus rhythm, cleared by nephrology to go home after dialysis, will await for cardiology clearance prior to discharge. ASSESSMENT AND PLAN: - Acute respiratory insufficiency secondary to fluid overload and CHF. Dr. Cochran is following in pulmonology consultation. Continue breathing treatment , oxygen supplementation. - Acute on chronic diastolic congestive heart failure. Dr. Barnhart is following in cardiology consultation. Continue Coreg. - End-stage renal disease, hemodialysis dependent. Dr. Fox is following patient in nephrology consultation. Continue hemodialysis. - Possible pneumonia. Continue patient on broad-spectrum antibiotics. Monitor chest x-ray. - MRSA bacteremia. Continue antibiotics, follow up on final cultures. Dr. Tilley is following an infection disease consultation. - Anxiety. Continue Ativan p.r.n. for anxiety. - Hypertension. Continue patient on Procardia and minoxidil and Coreg. - Hypothyroidism. Continue Synthroid 125 mcg daily. - Diabetes mellitus. Continue NovoLog per sliding scale. - Benign prostatic hypertrophy. Continue tamsulosin. - Probable COPD, continue Advair and breathing treatments. Continue heparin for deep venous thrombosis prophylaxis and Protonix for peptic ulcer disease prophylaxis. Further recommendations based on clinical course. Plan of care discussed with Dr. Bonilla. Problems: Exam/Review of Systems Vital Signs Vitals Vital Signs Date Time Temp Pulse Resp B/P Pulse Ox O2 Delivery O2 Flow Rate FiO2 09/11/16 13:10 65 09/11/16 11:40 18 09/11/16 11:03 97.3 106/64 99 09/11/16 08:13 Nasal Cannula 2.0 09/08/16 13:21 60 Intake and Output 09/10/16 09/10/16 09/11/16 15:00 23:00 07:00 Intake Total 1000 ml 700 ml Output Total 4000 ml Balance -3000 ml 700 ml Exam Constitutional: alert, oriented Neck: supple Respiratory: diminished breath sounds Cardiovascular: nl pulses, regular rate and rhythm Gastrointestinal: non-tender, soft Extremities: normal pulses Results Result Diagram: 09/11/16 0545 09/11/16 0545 Results 24 hrs Laboratory Tests Test 09/11/16 05:45 White Blood Count 10.2 Red Blood Count 3.44 L Hemoglobin 10.2 L Hematocrit 30.5 L Mean Corpuscular Volume 88.7 Mean Corpuscular Hemoglobin 29.7 Mean Corpuscular Hemoglobin Concent 33.4 Red Cell Distribution Width 14.6 H Platelet Count 256 Mean Platelet Volume 9.3 Neutrophils % 68.0 Lymphocytes % 19.5 Monocytes % 10.0 Eosinophils % 1.4 Basophils % 0.3 Nucleated Red Blood Cells % 0.0 Neutrophils # 6.9 Lymphocytes # 2.0 Monocytes # 1.0 H Eosinophils # 0.1 Basophils # 0.0 Nucleated Red Blood Cells # 0.0 Sodium Level 134 L Potassium Level 3.8 Chloride Level 91 #L Carbon Dioxide Level 29 Anion Gap 18 H Blood Urea Nitrogen 53 #H Creatinine 6.34 #H Glucose Level 94 Calcium Level 8.5 Iron Level 118 Total Iron Binding Capacity 156 L Percent Iron Saturation 76 H Ferritin 614.0 H Random Vancomycin Level 10.0 Medications Medications Current Medications Ondansetron HCl (Zofran Inj) 4 mg Q6H PRN IV NAUSEA AND/OR VOMITING; Start at 23:00 Acetaminophen (Tylenol Tab) 650 mg Q6H PRN PO PAIN LEVEL 1-3 OR FEVER; Start at 23:00 Morphine Sulfate (morphine) 2 mg Q4H PRN IV PAIN LEVEL 7-10 Last administered on 09/08/16 10:09; Admin Dose 2 MG; Start 09/07/16 at 23:00 Heparin Sodium (Porcine) (Heparin (5000 Units/0.5 ml)) 5,000 unit Q8 SC Last administered on 09/09/16 21:20; Admin Dose 5,000 UNIT; Start 09/08/16 at 06:00 Hydralazine HCl (Apresoline) 50 mg BID PO Last administered on 09/10/16 20:39; Admin Dose 50 MG; Start 09/08/16 at 21:00 Clonidine (Catapres) 0.1 mg Q4H PRN PO SBP greater than 170 Last administered on 09/10/16 19:39; Admin Dose 0.1 MG; Start 09/08/16 at 10:00 Carvedilol (Coreg) 12.5 mg BID PO Last administered on 09/10/16 20:38; Admin Dose 12.5 MG; Start 09/08/16 at 13:00 Minoxidil (Loniten) 5 mg BID PO Last administered on 09/10/16 20:39; Admin Dose 5 MG; Start 09/08/16 at 13:00 Multivit/Ca Carb/ B Cmplx/FA/Prenat (Katlyn-Michael) 1 tab DAILY PO Last administered on 09/11/16 09:50; Admin Dose 1 TAB; Start 09/08/16 at 13:00 Nifedipine (Procardia Xl) 30 mg BID PO Last administered on 09/10/16 20:39; Admin Dose 30 MG; Start 09/08/16 at 13:00 Tamsulosin HCl (Flomax) 0.4 mg HS PO Last administered on 09/10/16 20:45; Admin Dose 0.4 MG; Start 09/08/16 at 21:00 Valsartan (Diovan) 320 mg DAILY PO ; Start 09/08/16 at 13:00 Clonidine (Catapres) 0.1 mg TID PO Last administered on 09/09/16 21:06; Admin Dose 0.1 MG; Start 09/08/16 at 13:30 Docusate Sodium (Colace) 100 mg Q12 PO Last administered on 09/11/16 09:48; Admin Dose 100 MG; Start 09/08/16 at 21:00 Pantoprazole (Protonix Tab) 40 mg DAILY@06 PO Last administered on 09/11/16 05: 54; Admin Dose 40 MG; Start 09/08/16 at 14:00 Salmeterol Xinafoate/ Fluticasone (Advair 500/50 Diskus) 1 inh BID INH Last administered on 09/11/16 09:40; Admin Dose 1 INH; Start 09/08/16 at 21:00 Senna (Senokot) 1 tab DAILY PRN PO CONSTIPATION Last administered on 09/10/16 13:02; Admin Dose 1 TAB; Start 09/08/16 at 13:30 Tiotropium [place] (Spiriva) 1 inh BID INH Last administered on 09/10/16 20:40 ; Admin Dose 1 INH; Start 09/08/16 at 21:00 Prednisolone 15 mg 15 mg DAILY PO Last administered on 09/11/16 09:49; Admin Dose 15 MG; Start 09/08/16 at 15:00 Ertapenem/Sodium Chloride (Invanz/NS) 100 ml @ 200 mls/hr Q24H IVPB Last administered on 09/10/16 18:32; Admin Dose 200 MLS/HR; Start 09/09/16 at 17:00 Epoetin Jordon (Epogen (Esrd)) 10,000 units MoWeFr@17 SC ; Start 09/11/16 at 17:00 Lactulose (Enulose) 20 gm Q6H PRN PO CONSTIPATION; Start 09/10/16 at 15:30 Aspirin 81 mg 81 mg DAILY PO Last administered on 09/11/16 09:49; Admin Dose 81 MG; Start 09/11/16 at 09:00 Vancomycin HCl (Vancocin) 250 ml @ 125 mls/hr ONCE IVPB Last administered on 11:04; Admin Dose 125 MLS/HR; Start 09/11/16 at 10:30; Stop 09/11/16 at 16 :00 CHARLES HAIRSTON Sep 11, 2016 13:52
--- NOTE | 2016-09-11 14:02 | CONS ---
Date/Time of Note Date/Time of Note DATE: 09/11/16 TIME: 13:59 Assessment/Plan Assessment/Plan Chief Complaint/Hosp Course SUBJECTIVE: Patient is alert, feels better, no fevers, nad MICROBIOLOGY: Blood culture growing on admission staph species. Repeat blood cultures pending, preliminary negative. DIAGNOSTICS: Chest x-ray from 09/10 revealed patchy bilateral upper lobe and lower infiltrates, questionable congestion versus pneumonia. ANTIMICROBIALS: 1. Vancomycin. 2. Invanz. PHYSICAL EXAMINATION: GENERAL: This is a well-developed, well-nourished elderly, [place] man who is awake, in no distress. HEENT: Head atraumatic, normocephalic. Sclerae are anicteric. Buccal mucosa dry. NECK: Supple, trachea midline. CHEST: Chest rise is symmetrical. Breath sounds diminished to the bases. HEART: S1, S2. ABDOMEN: Soft. Bowel tones present. EXTREMITIES: Without cyanosis. SKIN: No jaundice, no cyanosis. ASSESSMENT: 1. Systemic inflammatory response syndrome with bacteremia===> cw contaminant. 2. Congestive heart failure exacerbation. 3. Constipation. 4. Chronic kidney disease, hemodialysis dependent. 5. Diabetes. 6. Benign prostatic hypertrophy. PLAN: The patient remains stable. Dc Vanco. Continue Invanz for now. Follow recommendations of consultants. DW staff Problems: Consultation Date/Type/Reason Admit Date/Time September 07, 2016 at 21:46 Initial Consult Date 09/09/16 Type of Consultation: ID Referring Provider: MANDA FARRAR MD Exam/Review of Systems Vital Signs Vitals Vital Signs Date Time Temp Pulse Resp B/P Pulse Ox O2 Delivery O2 Flow Rate FiO2 09/11/16 13:10 65 09/11/16 11:40 18 09/11/16 11:03 97.3 106/64 99 09/11/16 08:13 Nasal Cannula 2.0 09/08/16 13:21 60 Intake and Output 09/10/16 09/10/16 09/11/16 15:00 23:00 07:00 Intake Total 1000 ml 700 ml Output Total 4000 ml Balance -3000 ml 700 ml Results Result Diagram: 09/11/16 0545 09/11/16 0545 Results 24 hrs Laboratory Tests Test 09/11/16 05:45 White Blood Count 10.2 Red Blood Count 3.44 L Hemoglobin 10.2 L Hematocrit 30.5 L Mean Corpuscular Volume 88.7 Mean Corpuscular Hemoglobin 29.7 Mean Corpuscular Hemoglobin Concent 33.4 Red Cell Distribution Width 14.6 H Platelet Count 256 Mean Platelet Volume 9.3 Neutrophils % 68.0 Lymphocytes % 19.5 Monocytes % 10.0 Eosinophils % 1.4 Basophils % 0.3 Nucleated Red Blood Cells % 0.0 Neutrophils # 6.9 Lymphocytes # 2.0 Monocytes # 1.0 H Eosinophils # 0.1 Basophils # 0.0 Nucleated Red Blood Cells # 0.0 Sodium Level 134 L Potassium Level 3.8 Chloride Level 91 #L Carbon Dioxide Level 29 Anion Gap 18 H Blood Urea Nitrogen 53 #H Creatinine 6.34 #H Glucose Level 94 Calcium Level 8.5 Iron Level 118 Total Iron Binding Capacity 156 L Percent Iron Saturation 76 H Ferritin 614.0 H Random Vancomycin Level 10.0 Medications Medications Current Medications Ondansetron HCl (Zofran Inj) 4 mg Q6H PRN IV NAUSEA AND/OR VOMITING; Start at 23:00 Acetaminophen (Tylenol Tab) 650 mg Q6H PRN PO PAIN LEVEL 1-3 OR FEVER; Start at 23:00 Morphine Sulfate (morphine) 2 mg Q4H PRN IV PAIN LEVEL 7-10 Last administered on 09/08/16 10:09; Admin Dose 2 MG; Start 09/07/16 at 23:00 Heparin Sodium (Porcine) (Heparin (5000 Units/0.5 ml)) 5,000 unit Q8 SC Last administered on 09/09/16 21:20; Admin Dose 5,000 UNIT; Start 09/08/16 at 06:00 Hydralazine HCl (Apresoline) 50 mg BID PO Last administered on 09/10/16 20:39; Admin Dose 50 MG; Start 09/08/16 at 21:00 Clonidine (Catapres) 0.1 mg Q4H PRN PO SBP greater than 170 Last administered on 09/10/16 19:39; Admin Dose 0.1 MG; Start 09/08/16 at 10:00 Carvedilol (Coreg) 12.5 mg BID PO Last administered on 09/10/16 20:38; Admin Dose 12.5 MG; Start 09/08/16 at 13:00 Minoxidil (Loniten) 5 mg BID PO Last administered on 09/10/16 20:39; Admin Dose 5 MG; Start 09/08/16 at 13:00 Multivit/Ca Carb/ B Cmplx/FA/Prenat (Katlyn-Michael) 1 tab DAILY PO Last administered on 09/11/16 09:50; Admin Dose 1 TAB; Start 09/08/16 at 13:00 Nifedipine (Procardia Xl) 30 mg BID PO Last administered on 09/10/16 20:39; Admin Dose 30 MG; Start 09/08/16 at 13:00 Tamsulosin HCl (Flomax) 0.4 mg HS PO Last administered on 09/10/16 20:45; Admin Dose 0.4 MG; Start 09/08/16 at 21:00 Valsartan (Diovan) 320 mg DAILY PO ; Start 09/08/16 at 13:00 Clonidine (Catapres) 0.1 mg TID PO Last administered on 09/09/16 21:06; Admin Dose 0.1 MG; Start 09/08/16 at 13:30 Docusate Sodium (Colace) 100 mg Q12 PO Last administered on 09/11/16 09:48; Admin Dose 100 MG; Start 09/08/16 at 21:00 Pantoprazole (Protonix Tab) 40 mg DAILY@06 PO Last administered on 09/11/16 05: 54; Admin Dose 40 MG; Start 09/08/16 at 14:00 Salmeterol Xinafoate/ Fluticasone (Advair 500/50 Diskus) 1 inh BID INH Last administered on 09/11/16 09:40; Admin Dose 1 INH; Start 09/08/16 at 21:00 Senna (Senokot) 1 tab DAILY PRN PO CONSTIPATION Last administered on 09/10/16 13:02; Admin Dose 1 TAB; Start 09/08/16 at 13:30 Tiotropium [place] (Spiriva) 1 inh BID INH Last administered on 09/10/16 20:40 ; Admin Dose 1 INH; Start 09/08/16 at 21:00 Prednisolone 15 mg 15 mg DAILY PO Last administered on 09/11/16 09:49; Admin Dose 15 MG; Start 09/08/16 at 15:00 Ertapenem/Sodium Chloride (Invanz/NS) 100 ml @ 200 mls/hr Q24H IVPB Last administered on 09/10/16 18:32; Admin Dose 200 MLS/HR; Start 09/09/16 at 17:00 Epoetin Jordon (Epogen (Esrd)) 10,000 units MoWeFr@17 SC ; Start 09/11/16 at 17:00 Lactulose (Enulose) 20 gm Q6H PRN PO CONSTIPATION; Start 09/10/16 at 15:30 Aspirin 81 mg 81 mg DAILY PO Last administered on 09/11/16 09:49; Admin Dose 81 MG; Start 09/11/16 at 09:00 Vancomycin HCl (Vancocin) 250 ml @ 125 mls/hr ONCE IVPB Last administered on 11:04; Admin Dose 125 MLS/HR; Start 09/11/16 at 10:30; Stop 09/11/16 at 16 :00 TRISH CUELLO NP Sep 11, 2016 14:02
[2016-09-11] MEDS ORDERED: EPOETIN 10000 UNITS/1 ML INJ (ESRD) SC SCH (17:00)
[2016-09-11] MEDS: ERTAPENEM SODIUM 1 GM in SOD CHLORIDE 0.9% 100 ML IVPB SCH (17:37)
[2016-09-11] MEDS: TAMSULOSIN (SR) 0.4 MG CAP PO SCH (21:00)
[2016-09-12] VITALS (16 sets, daily range): BP systolic 105–138; BP diastolic 51–74; PULSE 70–92; RESP 18
[2016-09-12] MEDS: PANTOPRAZOLE (EC) 40 MG TAB PO SCH (06:00)
[2016-09-12] MEDS: HEPARIN 5,000 UNIT/0.5 ML VIAL SC SCH ×2 (06:00→14:00)
[2016-09-12] MEDS: LEVOTHYROXINE 125 MCG TAB PO SCH (06:17)
[2016-09-12 06:56] LABS: ADD SCAN DIFF NO
[2016-09-12 07:03] LABS: BASOPHILS % 0.4 % (0.0-2.0); EOSINOPHILS % 0.4 % (0.0-7.0); HEMATOCRIT 33.6 % (42.0-52.0); HEMOGLOBIN 11.1 g/dl (14.0-18.0); LYMPHOCYTES % 17.4 % (15.0-51.0); MEAN CORPUSCULAR HEMOGLOBIN 29.3 pg (29.0-33.0); MEAN CORPUSCULAR VOLUME 88.7 fl (82.0-101.0); MEAN PLATELET VOLUME 9.5 fl (7.4-10.4); MONOCYTE # 1.1 10^3/ul (0.3-0.9); MONOCYTES % 9.2 % (0.0-11.0); NEUTROPHIL # 8.1 10^3/ul (1.6-7.5); NEUTROPHILS % 71.4 % (39.0-77.0); PLATELET COUNT 282 10^3/UL (140-415); RED BLOOD COUNT 3.79 10^6/ul (4.70-6.10); RED CELL DISTRIBUTION WIDTH 14.7 % (11.5-14.5); WHITE BLOOD COUNT 11.4 10^3/ul (4.8-10.8)
[2016-09-12 07:26] LABS: CALCIUM 8.5 mg/dl (8.4-10.2); CREATININE 8.77 mg/dl (0.61-1.24); POTASSIUM 4.6 mmol/L (3.5-5.1)
[2016-09-12] MEDS: ALBUTEROL/IPRATROPIUM (NEB) 3 ML AMP HHN SCH ×2 (07:53→13:50)
[2016-09-12] MEDS: MULTIVIT/CA CARB/B CMPLX/FA TAB PO SCH (09:33)
[2016-09-12] MEDS: CALCIUM ACETATE 667 MG CAP PO SCH ×3 (09:33→17:55)
[2016-09-12] MEDS: TIOTROPIUM 18 MCG CAPSULE INHA DEV INH SCH (09:34)
[2016-09-12] MEDS: DOCUSATE SODIUM 100 MG CAP PO SCH (09:34)
[2016-09-12] MEDS: predniSOLONE 5 MG TAB PO SCH (09:34)
[2016-09-12] MEDS: ASPIRIN (EC) 81 MG TAB PO SCH (09:34)
[2016-09-12] MEDS: SALMETEROL/FLUTICASONE 500/50 INHA INH SCH (09:35)
[2016-09-12] MEDS: MINOXIDIL 2.5 MG TAB PO SCH (10:24)
[2016-09-12] MEDS: VALSARTAN 160 MG TAB PO SCH (10:24)
[2016-09-12] MEDS: NIFEdipine (XL) 30 MG TAB PO SCH (10:25)
--- NOTE | 2016-09-12 14:59 | CONS ---
Date/Time of Note Date/Time of Note DATE: 09/12/16 TIME: 14:58 Assessment/Plan Assessment/Plan Chief Complaint/Hosp Course SUBJECTIVE: In HD, alert, feels good, no fevers, nad MICROBIOLOGY: Blood culture growing on admission staph species. Repeat blood cultures pending, preliminary negative. DIAGNOSTICS: Chest x-ray from 09/10 revealed patchy bilateral upper lobe and lower infiltrates, questionable congestion versus pneumonia. ANTIMICROBIALS: Invanz. PHYSICAL EXAMINATION: GENERAL: This is a well-developed, well-nourished elderly, [place] man who is awake, in no distress. HEENT: Head atraumatic, normocephalic. Sclerae are anicteric. Buccal mucosa dry. NECK: Supple, trachea midline. CHEST: Chest rise is symmetrical. Breath sounds diminished to the bases. HEART: S1, S2. ABDOMEN: Soft. Bowel tones present. EXTREMITIES: Without cyanosis. SKIN: No jaundice, no cyanosis. ASSESSMENT: 1. Systemic inflammatory response syndrome with bacteremia===> cw contaminant. 2. Congestive heart failure exacerbation. 3. Constipation. 4. Chronic kidney disease, hemodialysis dependent. 5. Diabetes. 6. Benign prostatic hypertrophy. PLAN: The patient remains stable. Will dc abx and observe. DW staff Problems: Consultation Date/Type/Reason Admit Date/Time September 07, 2016 at 21:46 Initial Consult Date 09/09/16 Type of Consultation: ID Referring Provider: MANDA FARRAR MD Exam/Review of Systems Vital Signs Vitals Vital Signs Date Time Temp Pulse Resp B/P Pulse Ox O2 Delivery O2 Flow Rate FiO2 09/12/16 14:55 98.1 93 18 134/60 95 09/12/16 13:53 2.0 09/12/16 13:53 Nasal Cannula 09/08/16 13:21 60 Intake and Output 09/11/16 09/11/16 09/12/16 15:00 23:00 07:00 Intake Total 300 ml 400 ml 200 ml Output Total 3300 ml Balance -3000 ml 400 ml 200 ml Results Result Diagram: 09/12/16 0550 09/12/16 0550 Results 24 hrs Laboratory Tests Test 09/12/16 05:50 White Blood Count 11.4 H Red Blood Count 3.79 L Hemoglobin 11.1 L Hematocrit 33.6 L Mean Corpuscular Volume 88.7 Mean Corpuscular Hemoglobin 29.3 Mean Corpuscular Hemoglobin Concent 33.0 Red Cell Distribution Width 14.7 H Platelet Count 282 Mean Platelet Volume 9.5 Neutrophils % 71.4 Lymphocytes % 17.4 Monocytes % 9.2 Eosinophils % 0.4 Basophils % 0.4 Nucleated Red Blood Cells % 0.0 Neutrophils # 8.1 H Lymphocytes # 2.0 Monocytes # 1.1 H Eosinophils # 0.0 Basophils # 0.0 Nucleated Red Blood Cells # 0.0 Sodium Level 136 Potassium Level 4.6 Chloride Level 96 L Carbon Dioxide Level 26 Anion Gap 19 H Blood Urea Nitrogen 83 #H Creatinine 8.77 #H Glucose Level 98 Calcium Level 8.5 Medications Medications Current Medications Ondansetron HCl (Zofran Inj) 4 mg Q6H PRN IV NAUSEA AND/OR VOMITING; Start at 23:00 Acetaminophen (Tylenol Tab) 650 mg Q6H PRN PO PAIN LEVEL 1-3 OR FEVER; Start at 23:00 Morphine Sulfate (morphine) 2 mg Q4H PRN IV PAIN LEVEL 7-10 Last administered on 09/08/16 10:09; Admin Dose 2 MG; Start 09/07/16 at 23:00 Heparin Sodium (Porcine) (Heparin (5000 Units/0.5 ml)) 5,000 unit Q8 SC Last administered on 09/09/16 21:20; Admin Dose 5,000 UNIT; Start 09/08/16 at 06:00 Hydralazine HCl (Apresoline) 50 mg BID PO Last administered on 09/10/16 20:39; Admin Dose 50 MG; Start 09/08/16 at 21:00 Clonidine (Catapres) 0.1 mg Q4H PRN PO SBP greater than 170 Last administered on 09/10/16 19:39; Admin Dose 0.1 MG; Start 09/08/16 at 10:00 Carvedilol (Coreg) 12.5 mg BID PO Last administered on 09/10/16 20:38; Admin Dose 12.5 MG; Start 09/08/16 at 13:00 Minoxidil (Loniten) 5 mg BID PO Last administered on 09/10/16 20:39; Admin Dose 5 MG; Start 09/08/16 at 13:00 Multivit/Ca Carb/ B Cmplx/FA/Prenat (Katlyn-Michael) 1 tab DAILY PO Last administered on 09/12/16 09:33; Admin Dose 1 TAB; Start 09/08/16 at 13:00 Nifedipine (Procardia Xl) 30 mg BID PO Last administered on 09/10/16 20:39; Admin Dose 30 MG; Start 09/08/16 at 13:00 Tamsulosin HCl (Flomax) 0.4 mg HS PO Last administered on 09/10/16 20:45; Admin Dose 0.4 MG; Start 09/08/16 at 21:00 Valsartan (Diovan) 320 mg DAILY PO ; Start 09/08/16 at 13:00 Clonidine (Catapres) 0.1 mg TID PO Last administered on 09/09/16 21:06; Admin Dose 0.1 MG; Start 09/08/16 at 13:30 Docusate Sodium (Colace) 100 mg Q12 PO Last administered on 09/12/16 09:34; Admin Dose 100 MG; Start 09/08/16 at 21:00 Pantoprazole (Protonix Tab) 40 mg DAILY@06 PO Last administered on 09/11/16 05: 54; Admin Dose 40 MG; Start 09/08/16 at 14:00 Salmeterol Xinafoate/ Fluticasone (Advair 500/50 Diskus) 1 inh BID INH Last administered on 09/12/16 09:35; Admin Dose 1 INH; Start 09/08/16 at 21:00 Senna (Senokot) 1 tab DAILY PRN PO CONSTIPATION Last administered on 09/10/16 13:02; Admin Dose 1 TAB; Start 09/08/16 at 13:30 Tiotropium [place] (Spiriva) 1 inh BID INH Last administered on 09/12/16 09:34 ; Admin Dose 1 INH; Start 09/08/16 at 21:00 Prednisolone 15 mg 15 mg DAILY PO Last administered on 09/12/16 09:34; Admin Dose 15 MG; Start 09/08/16 at 15:00 Ertapenem/Sodium Chloride (Invanz/NS) 100 ml @ 200 mls/hr Q24H IVPB Last administered on 09/11/16 17:37; Admin Dose 200 MLS/HR; Start 09/09/16 at 17:00 Epoetin Jordon (Epogen (Esrd)) 10,000 units MoWeFr@17 SC ; Start 09/11/16 at 17:00 Lactulose (Enulose) 20 gm Q6H PRN PO CONSTIPATION; Start 09/10/16 at 15:30 Aspirin (Halfprin) 81 mg DAILY PO Last administered on 09/12/16t 09:34; Admin Dose 81 MG; Start 09/11/16 at 09:00 TRISH CUELLO NP Sep 12, 2016 14:59
--- NOTE | 2016-09-12 15:32 | CONS ---
Date/Time of Note Date/Time of Note DATE: 09/12/16 TIME: 15:28 Assessment/Plan Assessment/Plan Additional Assessment/Plan 1. End-stage renal disease. He is usually on dialysis Wednesday.s/p extra hd yesterday and due again today 2. Congestive heart failure : improved with hd. hd today 3. Coronary artery disease. He has no chest pain now. 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 states sob better Referring Provider: MANDA FARRAR MD Exam/Review of Systems Vital Signs Vitals Vital Signs Date Time Temp Pulse Resp B/P Pulse Ox O2 Delivery O2 Flow Rate FiO2 09/12/16 14:55 98.1 93 18 134/60 95 09/12/16 13:53 2.0 09/12/16 13:53 Nasal Cannula 09/08/16 13:21 60 Intake and Output 09/11/16 09/11/16 09/12/16 15:00 23:00 07:00 Intake Total 300 ml 400 ml 200 ml Output Total 3300 ml Balance -3000 ml 400 ml 200 ml Exam Constitutional: alert, oriented, well developed Psych: no complaints Head: normocephalic Eyes: nl conjunctiva Neck: non-tender, supple Respiratory: clear to auscultation Cardiovascular: edema, nl pulses, regular rate and rhythm Gastrointestinal: non-tender, soft Results Result Diagram: 09/12/16 0550 09/12/16 0550 Results 24 hrs Laboratory Tests Test 09/12/16 05:50 White Blood Count 11.4 H Red Blood Count 3.79 L Hemoglobin 11.1 L Hematocrit 33.6 L Mean Corpuscular Volume 88.7 Mean Corpuscular Hemoglobin 29.3 Mean Corpuscular Hemoglobin Concent 33.0 Red Cell Distribution Width 14.7 H Platelet Count 282 Mean Platelet Volume 9.5 Neutrophils % 71.4 Lymphocytes % 17.4 Monocytes % 9.2 Eosinophils % 0.4 Basophils % 0.4 Nucleated Red Blood Cells % 0.0 Neutrophils # 8.1 H Lymphocytes # 2.0 Monocytes # 1.1 H Eosinophils # 0.0 Basophils # 0.0 Nucleated Red Blood Cells # 0.0 Sodium Level 136 Potassium Level 4.6 Chloride Level 96 L Carbon Dioxide Level 26 Anion Gap 19 H Blood Urea Nitrogen 83 #H Creatinine 8.77 #H Glucose Level 98 Calcium Level 8.5 Medications Medications Current Medications Ondansetron HCl (Zofran Inj) 4 mg Q6H PRN IV NAUSEA AND/OR VOMITING; Start at 23:00 Acetaminophen (Tylenol Tab) 650 mg Q6H PRN PO PAIN LEVEL 1-3 OR FEVER; Start at 23:00 Morphine Sulfate (morphine) 2 mg Q4H PRN IV PAIN LEVEL 7-10 Last administered on 09/08/16 10:09; Admin Dose 2 MG; Start 09/07/16 at 23:00 Heparin Sodium (Porcine) (Heparin (5000 Units/0.5 ml)) 5,000 unit Q8 SC Last administered on 09/09/16 21:20; Admin Dose 5,000 UNIT; Start 09/08/16 at 06:00 Hydralazine HCl (Apresoline) 50 mg BID PO Last administered on 09/10/16 20:39; Admin Dose 50 MG; Start 09/08/16 at 21:00 Clonidine (Catapres) 0.1 mg Q4H PRN PO SBP greater than 170 Last administered on 09/10/16 19:39; Admin Dose 0.1 MG; Start 09/08/16 at 10:00 Carvedilol (Coreg) 12.5 mg BID PO Last administered on 09/10/16 20:38; Admin Dose 12.5 MG; Start 09/08/16 at 13:00 Minoxidil (Loniten) 5 mg BID PO Last administered on 09/10/16 20:39; Admin Dose 5 MG; Start 09/08/16 at 13:00 Multivit/Ca Carb/ B Cmplx/FA/Prenat (Katlyn-Michael) 1 tab DAILY PO Last administered on 09/12/16 09:33; Admin Dose 1 TAB; Start 09/08/16 at 13:00 Nifedipine (Procardia Xl) 30 mg BID PO Last administered on 09/10/16 20:39; Admin Dose 30 MG; Start 09/08/16 at 13:00 Tamsulosin HCl (Flomax) 0.4 mg HS PO Last administered on 09/10/16 20:45; Admin Dose 0.4 MG; Start 09/08/16 at 21:00 Valsartan (Diovan) 320 mg DAILY PO ; Start 09/08/16 at 13:00 Clonidine (Catapres) 0.1 mg TID PO Last administered on 09/12/16 14:58; Admin Dose 0.1 MG; Start 09/08/16 at 13:30 Docusate Sodium (Colace) 100 mg Q12 PO Last administered on 09/12/16 09:34; Admin Dose 100 MG; Start 09/08/16 at 21:00 Pantoprazole (Protonix Tab) 40 mg DAILY@06 PO Last administered on 09/11/16 05: 54; Admin Dose 40 MG; Start 09/08/16 at 14:00 Salmeterol Xinafoate/ Fluticasone (Advair 500/50 Diskus) 1 inh BID INH Last administered on 09/12/16 09:35; Admin Dose 1 INH; Start 09/08/16 at 21:00 Senna (Senokot) 1 tab DAILY PRN PO CONSTIPATION Last administered on 09/10/16 13:02; Admin Dose 1 TAB; Start 09/08/16 at 13:30 Tiotropium [place] (Spiriva) 1 inh BID INH Last administered on 09/12/16 09:34 ; Admin Dose 1 INH; Start 09/08/16 at 21:00 Prednisolone (Prednisolone) 15 mg DAILY PO Last administered on 09/12/16 09:34 ; Admin Dose 15 MG; Start 09/08/16 at 15:00 Epoetin Jordon (Epogen (Esrd)) 10,000 units MoWeFr@17 SC ; Start 09/11/16 at 17:00 Lactulose (Enulose) 20 gm Q6H PRN PO CONSTIPATION; Start 09/10/16 at 15:30 Aspirin (Halfprin) 81 mg DAILY PO Last administered on 09/12/16 09:34; Admin Dose 81 MG; Start 09/11/16 at 09:00 ANTWAN GARDINER MD Sep 12, 2016 15:32
--- NOTE | 2016-09-12 16:08 | PN ---
Date/Time of Note Date/Time of Note DATE: 09/12/16 TIME: 16:06 Assessment/Plan VTE Prophylaxis VTE Prophylaxis Intervention: heparin, other Lines/Catheters IV [facility] Urinary Cath still in place: No Assessment/Plan Assessment/Plan - Acute respiratory insufficiency secondary to fluid overload and CHF. - pe Dr. Cochran in pulmonology consultation. Continue breathing treatment , oxygen supplementation. - Acute on chronic diastolic congestive heart failure. -per Dr. Barnhart in cardiology consultation. Continue Coreg. - End-stage renal disease, hemodialysis dependent. - per Dr. Fox in nephrology consultation. Continue hemodialysis. - Possible pneumonia. Continue patient on broad-spectrum antibiotics. Monitor chest x-ray. - MRSA bacteremia. Continue antibiotics, follow up on final cultures. - per Dr. Tilley in infection disease consultation. - Anxiety. Continue Ativan p.r.n. for anxiety. - Hypertension. Continue patient on Procardia and minoxidil and Coreg. - Hypothyroidism. Continue Synthroid 125 mcg daily. - Diabetes mellitus. Continue NovoLog per sliding scale. - Benign prostatic hypertrophy. Continue tamsulosin. - Probable COPD, continue Advair and breathing treatments. Continue heparin for deep venous thrombosis prophylaxis and Protonix for peptic ulcer disease prophylaxis. Further recommendations based on clinical course. Plan of care discussed with Dr. Bonilla. Subjective 24 Hr Interval Summary Free Text/Dictation nad, resting, seems comfortable, had episode of SVT during hemodialysis yesterday, possible SVT vs Abrasion , currently in sinus rhythm, cleared by nephrology to go home after dialysis, will await for cardiology clearance prior to discharge. SR at present with few beats earlier per staff. Patient wants to go home as he feels fine nowdw staff Eyes: no complaints ENT: no complaints Respiratory: no complaints Cardiovascular: no complaints Genitourinary: no complaints Musculoskeletal: no complaints Exam/Review of Systems Vital Signs Vitals Vital Signs Date Time Temp Pulse Resp B/P Pulse Ox O2 Delivery O2 Flow Rate FiO2 09/12/16 14:55 98.1 93 18 134/60 95 09/12/16 13:53 2.0 09/12/16 13:53 Nasal Cannula 09/08/16 13:21 60 Intake and Output 09/11/16 09/11/16 09/12/16 15:00 23:00 07:00 Intake Total 300 ml 400 ml 200 ml Output Total 3300 ml Balance -3000 ml 400 ml 200 ml Exam Constitutional: alert, oriented, well developed Psych: nl mood/affect Respiratory: clear to auscultation, normal air movement Cardiovascular: nl pulses, other Gastrointestinal: non-tender, soft Musculoskeletal: nl extremities to inspection Extremities: normal pulses Neurological: nl mental status, nl speech Lymph: nontender Results Result Diagram: 09/12/16 0550 09/12/16 0550 Results 24 hrs Laboratory Tests Test 09/12/16 05:50 White Blood Count 11.4 H Red Blood Count 3.79 L Hemoglobin 11.1 L Hematocrit 33.6 L Mean Corpuscular Volume 88.7 Mean Corpuscular Hemoglobin 29.3 Mean Corpuscular Hemoglobin Concent 33.0 Red Cell Distribution Width 14.7 H Platelet Count 282 Mean Platelet Volume 9.5 Neutrophils % 71.4 Lymphocytes % 17.4 Monocytes % 9.2 Eosinophils % 0.4 Basophils % 0.4 Nucleated Red Blood Cells % 0.0 Neutrophils # 8.1 H Lymphocytes # 2.0 Monocytes # 1.1 H Eosinophils # 0.0 Basophils # 0.0 Nucleated Red Blood Cells # 0.0 Sodium Level 136 Potassium Level 4.6 Chloride Level 96 L Carbon Dioxide Level 26 Anion Gap 19 H Blood Urea Nitrogen 83 #H Creatinine 8.77 #H Glucose Level 98 Calcium Level 8.5 Medications Medications Current Medications Ondansetron HCl (Zofran Inj) 4 mg Q6H PRN IV NAUSEA AND/OR VOMITING; Start at 23:00 Acetaminophen (Tylenol Tab) 650 mg Q6H PRN PO PAIN LEVEL 1-3 OR FEVER; Start at 23:00 Morphine Sulfate (morphine) 2 mg Q4H PRN IV PAIN LEVEL 7-10 Last administered on 09/08/16 10:09; Admin Dose 2 MG; Start 09/07/16 at 23:00 Heparin Sodium (Porcine) (Heparin (5000 Units/0.5 ml)) 5,000 unit Q8 SC Last administered on 09/09/16 21:20; Admin Dose 5,000 UNIT; Start 09/08/16 at 06:00 Hydralazine HCl (Apresoline) 50 mg BID PO Last administered on 09/10/16 20:39; Admin Dose 50 MG; Start 09/08/16 at 21:00 Clonidine (Catapres) 0.1 mg Q4H PRN PO SBP greater than 170 Last administered on 09/10/16 19:39; Admin Dose 0.1 MG; Start 09/08/16 at 10:00 Carvedilol (Coreg) 12.5 mg BID PO Last administered on 09/10/16 20:38; Admin Dose 12.5 MG; Start 09/08/16 at 13:00 Minoxidil (Loniten) 5 mg BID PO Last administered on 09/10/16 20:39; Admin Dose 5 MG; Start 09/08/16 at 13:00 Multivit/Ca Carb/ B Cmplx/FA/Prenat (Katlyn-Michael) 1 tab DAILY PO Last administered on 09/12/16 09:33; Admin Dose 1 TAB; Start 09/08/16 at 13:00 Nifedipine (Procardia Xl) 30 mg BID PO Last administered on 09/10/16 20:39; Admin Dose 30 MG; Start 09/08/16 at 13:00 Tamsulosin HCl (Flomax) 0.4 mg HS PO Last administered on 09/10/16 20:45; Admin Dose 0.4 MG; Start 09/08/16 at 21:00 Valsartan (Diovan) 320 mg DAILY PO ; Start 09/08/16 at 13:00 Clonidine (Catapres) 0.1 mg TID PO Last administered on 09/12/16 14:58; Admin Dose 0.1 MG; Start 09/08/16 at 13:30 Docusate Sodium (Colace) 100 mg Q12 PO Last administered on 09/12/16 09:34; Admin Dose 100 MG; Start 09/08/16 at 21:00 Pantoprazole (Protonix Tab) 40 mg DAILY@06 PO Last administered on 09/11/16 05: 54; Admin Dose 40 MG; Start 09/08/16 at 14:00 Salmeterol Xinafoate/ Fluticasone (Advair 500/50 Diskus) 1 inh BID INH Last administered on 09/12/16 09:35; Admin Dose 1 INH; Start 09/08/16 at 21:00 Senna (Senokot) 1 tab DAILY PRN PO CONSTIPATION Last administered on 09/10/16 13:02; Admin Dose 1 TAB; Start 09/08/16 at 13:30 Tiotropium [place] (Spiriva) 1 inh BID INH Last administered on 09/12/16 09:34 ; Admin Dose 1 INH; Start 09/08/16 at 21:00 Prednisolone (Prednisolone) 15 mg DAILY PO Last administered on 09/12/16 09:34 ; Admin Dose 15 MG; Start 09/08/16 at 15:00 Epoetin Jordon (Epogen (Esrd)) 10,000 units MoWeFr@17 SC ; Start 09/11/16 at 17:00 Lactulose (Enulose) 20 gm Q6H PRN PO CONSTIPATION; Start 09/10/16 at 15:30 Aspirin (Halfprin) 81 mg DAILY PO Last administered on 09/12/16 09:34; Admin Dose 81 MG; Start 09/11/16 at 09:00 CRISSY MCKEON Sep 12, 2016 16:08
== END 2016-09-12 18:55 | disposition left against medical advice (07) | DRG 291 ==
LOC: E/R 19:30 → TEL 21:46
PROVIDERS: ADMIT Internal Medicine; ATTEND Internal Medicine
PROC: 5A1D60Z (ICD-10-PCS; principal; 2016-09-08)
DX: I13.2 Hypertensive heart and chronic kidney disease with heart failure and with stage 5 chronic kidney disease, or end stage renal disease (principal); I50.33 Acute on chronic diastolic (congestive) heart failure; J18.9 Pneumonia, unspecified organism; N18.6 End stage renal disease; E87.5 Hyperkalemia; E11.9 Type 2 diabetes mellitus without complications; J44.0 Chronic obstructive pulmonary disease with (acute) lower respiratory infection; I77.6 Arteritis, unspecified; A49.02 Methicillin resistant Staphylococcus aureus infection, unspecified site; I47.1 Supraventricular tachycardia; J44.1 Chronic obstructive pulmonary disease with (acute) exacerbation; Z95.1 Presence of aortocoronary bypass graft; E03.9 Hypothyroidism, unspecified; Z99.2 Dependence on renal dialysis; F41.9 Anxiety disorder, unspecified; N40.0 Benign prostatic hyperplasia without lower urinary tract symptoms; K59.00 Constipation, unspecified
CPT/HCPCS: 36415; 36600; 71010; 80048; 80053; 80202; 82728; 82803; 83540; 83605; 83735; 84100; 84484; 85025; 85610; 85730; 87040; 90935; 93005; 94640; 94664; 96374; 96375; J0456; J0696; J1335; J1644; J1815; J2060; J2270; J2920; J3370; J7510; Q4081

== ENCOUNTER 2016-09-19 15:31 | Inpatient (IN) | payer MEDICARE, BC ==
[~2016-09-19] VITALS: Ht 167.6 cm; Wt 65.4 kg
[2016-09-19] VITALS (9 sets, daily range): BP systolic 92–182; BP diastolic 62–89; PULSE 74–156; RESP 23; TEMP 97.8; Ht 167.6 cm; Wt 65.4 kg
[2016-09-19] MEDS ORDERED: ALBUTEROL 0.083% (NEB) 2.5 MG/3 ML AMP INH STA (15:38)
--- NOTE | 2016-09-19 15:44 | ERA ---
ER Documentation Chief Complaint Date/Time DATE: 09/19/16 TIME: 15:40 Chief Complaint HPI Patient is a 81-year-old male with COPD and end-stage renal disease who presents with gradual onset, constant, progressive, moderate shortness of breath since this morning. His symptoms developed when he was at dialysis, and he is unable to finish dialysis. He went home from dialysis, but his symptoms worsen so he came to the emergency department. He denies chest pain, cough, fever. The patient is on 2-3 L of oxygen by nasal cannula at home. ROS All systems reviewed and are negative except as per history of present illness. Medications Home Meds Active Scripts Tiotropium [place]* (Spiriva*) 18 Mcg Cap.w.dev, 1 INH INH BID for 30 Days, #60 CAP Prov:HINA MCALLISTER MD 04/28/16 Salmeterol Xinaf-Fluticasone* (Advair*) 500/50 Diskus Inhaler, 1 INH INH BID for 30 Days, #1 CAP.EC Prov:HINA MCALLISTER MD 04/28/16 Pantoprazole* (Pantoprazole*) 40 Mg Tablet.dr, 40 MG PO DAILY@06 for 30 Days, # 30 BOX Prov:HINA MCALLISTER MD 04/28/16 Nifedipine (Procardia Xl) 30 Mg Tab.er.24, 30 MG PO BID for 30 Days, #30 TAB Prov:HINA MCALLISTER MD 04/28/16 Minoxidil* (Lonitin*) 2.5 Mg Tab, 5 MG PO BID for 30 Days, #60 TAB Prov:HINA MCALLISTER MD 04/28/16 [Ipratropium 0.02% (Neb)] 0.5 MG/2.5 ML NEBU No Conflict Check, 0.5 MG HHN Q6H RESP THERAPY for 30 Days, #90 CAP Prov:HINA MCALLISTER MD 04/28/16 Clonidine Hcl* (Clonidine Hcl*) 0.1 Mg Tab, 0.1 MG PO TID for 30 Days, #90 TAB Prov:HINA MCALLISTER MD 04/28/16 Carvedilol* (Carvedilol*) 12.5 Mg Tablet, 12.5 MG PO BID for 30 Days, #60 TAB Prov:HINA MCALLISTER MD 04/28/16 Albuterol Sulfate* (Albuterol Sulfate* Neb) 0.083%-3 Ml Neb, 2.5 MG HHN Q6HWA RESP THERAPY for 30 Days, #90 BLIST PACK Prov:HINA MCALLISTER MD 04/28/16 Acetaminophen* (Tylenol*) 325 Mg Tablet, 650 MG PO Q6H Y for PAIN AND OR ELEVATED TEMP for 30 Days, #90 TAB Prov:HINA MCALLISTER MD 04/28/16 Reported Medications [Heparin 5000U/0.5ML] No Conflict Check, 0.5 ML SC Q12 06/02/16 Prednisolone* (Prelone*) 15 Mg/5 Ml Solution, 15 MG PO DAILY, ML 06/02/16 Multivit/Ca Carb/B Cmplx/Fa* (Katlyn-Michael*) 1 Tab Tab, 1 TAB PO DAILY, TAB 06/02/16 Insulin Aspart (Novolog) 100 Unit/1 Ml Cartridge, 0 SQ SLIDING SCALE BEFORE MEALS; 200-250=2 UNITS, 251-300=4 UNITS, 301-350=6 UNITS, 351-400=8 UNITS,>400=10 UNITS AND CALL 06/02/16 Valsartan* (Diovan*) 160 Mg Tablet, 320 MG PO DAILY, TAB HOLD IF SBP<110;HR 06/02/16 Docusate Sodium* (Docusate Sodium*) 100 Mg Capsule, 100 MG PO Q12, #60 CAP 06/02/16 Calcium Acetate* (Calcium Acetate*) 667 Mg Capsule, 667 MG PO WITH MEALS, #30 CAP 06/02/16 Sennosides* (Senna Lax*) 8.6 Mg Tablet, 1 TAB PO DAILY Y for CONSTIPATION, TAB 01/13/16 Levalbuterol* (Xopenex* HFA) 15 Gm Inha, 2 PUFFS INH Q4H Y for WHEEZING AND SOB , INHALER 01/13/16 Tamsulosin Hcl* (Tamsulosin Hcl*) 0.4 Mg Cap.er.24h, 0.4 MG PO HS, CAP 11/28/15 Levothyroxine Sodium* (Levothyroxine Sodium*) 125 Mcg Tablet, 125 MCG PO BEFORE BREAKFAST, #30 TAB 11/28/15 Allergies Allergies: Coded Allergies: No Known Allergy (Unverified , 06/02/16) PMhx/Soc Past medical history: End-stage renal disease, diabetes, hypertension, COPD, anxiety, depression, anemia, BPH, hypothyroidism Past surgical history: Dialysis fistula Social history: No current alcohol or tobacco History of Surgery: Yes (LINSEY AV FISTULA) Anesthesia Reaction: No Hx Neurological Disorder: No Hx Respiratory Disorders: No Hx Cardiac Disorders: Yes (HTN) Hx Psychiatric Problems: No Hx Miscellaneous Medical Probl: Yes (ANXIETY, DEPRESSION,HYPOTHYROIDISM,ANEMIA) Hx Alcohol Use: No Hx Substance Use: No Hx Tobacco Use: No FmHx Family History: No coronary disease, No diabetes Physical Exam Vitals Vital Signs Date Time Temp Pulse Resp B/P Pulse Ox O2 Delivery O2 Flow Rate FiO2 09/19/16 19:54 79 20 142/62 100 Room Air 2.0 09/19/16 18:33 97.8 86 20 146/66 98 Room Air 2.0 09/19/16 17:32 83 18 97 21 09/19/16 16:18 87 26 166/64 100 Room Air 09/19/16 16:02 85 18 97 21 09/19/16 16:02 2.0 09/19/16 15:39 97.8 79 20 185/61 98 Physical Exam Const: Alert, in mild distress Head: Atraumatic Eyes: Normal Conjunctiva, no pallor, no icterus ENT: Normal External Ears, Nose and Mouth. Moist mucous membranes Neck: Full range of motion. No meningismus. No JVD Resp: Bibasilar rales, no wheezes, no prolonged expiration Cardio: Regular rate and rhythm, no murmurs Abd: Soft, non tender, non distended. Skin: No petechiae or rashes Back: No midline or flank tenderness Ext: No cyanosis, or edema Neur: Awake and alert, cranial nerves II through XII intact bilaterally, moves 4 extremities appropriately Psych: Normal Mood and Affect Result Diagram: 09/19/16 1500 09/19/16 1500 Results 24 hrs Laboratory Tests Test 09/19/16 15:00 09/19/16 18:35 White Blood Count 15.310^3/ul Red Blood Count 3.5710^6/ul Hemoglobin 10.8g/dl Hematocrit 32.8% Mean Corpuscular Volume 91.9fl Mean Corpuscular Hemoglobin 30.3pg Mean Corpuscular Hemoglobin Concent 32.9g/dl Red Cell Distribution Width 14.9% Platelet Count 12165^3/UL Mean Platelet Volume 9.0fl Neutrophils % 69.8% Lymphocytes % 16.4% Monocytes % 9.7% Eosinophils % 2.6% Basophils % 0.3% Nucleated Red Blood Cells % 0.0/100WBC Neutrophils # 10.710^3/ul Lymphocytes # 2.510^3/ul Monocytes # 1.510^3/ul Eosinophils # 0.410^3/ul Basophils # 0.110^3/ul Nucleated Red Blood Cells # 0.010^3/ul Prothrombin Time 13.7Sec Prothrombin Time Ratio 1.1 INR International Normalized Ratio 1.05 Activated Partial Thromboplast Time 31.7Sec Sodium Level 138mmol/L Potassium Level 6.6mmol/L Chloride Level 97mmol/L Carbon Dioxide Level 25mmol/L Anion Gap 23 Blood Urea Nitrogen 101mg/dl Creatinine 10.17mg/dl Glucose Level 90mg/dl Calcium Level 8.9mg/dl Total Bilirubin 0.0mg/dl Direct Bilirubin 0.00mg/dl Indirect Bilirubin 0.0mg/dl Aspartate Amino Transf (AST/SGOT) 18IU/L Alanine Aminotransferase (ALT/SGPT) 27IU/L Alkaline Phosphatase 63IU/L Troponin I 0.021ng/ml B-Type Natriuretic Peptide 36070UD/ML Total Protein 7.4g/dl Albumin 4.3g/dl Globulin 3.10g/dl Albumin/Globulin Ratio 1.38 Lactic Acid Level 1.3mmol/L Current Medications Medications (Trade) Dose Ordered Sig/Bettina Route PRN Reason Start Time Stop Time Status Last Admin Dose Admin Albuterol (Proventil 0.083% (Neb)) 5 mg ONCE STAT INH 09/19/16 15:38 09/19/16 15:40 DC 09/19/16 16:01 Nitroglycerin (Nitroglycerin 2% Oint) 1 inch ONCE ONCE TD 09/19/16 16:00 09/19/16 16:01 DC 09/19/16 16:18 Albuterol (Proventil 0.083% (Neb)) 5 mg ONCE STAT HHN 09/19/16 17:00 09/19/16 17:02 DC 09/19/16 17:30 Insulin Human Regular (Novolin-R) 5 unit ONCE ONCE IV 09/19/16 17:00 09/19/16 17:02 DC 09/19/16 17:55 Dextrose (D50w Syringe) 50 ml ONCE ONCE IV 09/19/16 17:00 09/19/16 17:02 DC 09/19/16 17:54 Insulin Human Regular 5 unit 5 unit ONCE ONCE IV 09/19/16 18:00 09/19/16 18:01 DC Cefepime HCl (Maxipime 1gm/50 ml (Pmx)) 50 ml @ 100 mls/hr ONCE ONCE IVPB 09/19/16 18:30 09/19/16 18:59 DC 09/19/16 18:45 Ondansetron HCl (Zofran Inj) 4 mg ER BRIDGE PRN IV NAUSEA AND/OR VOMITING 09/19/16 19:00 09/19/16 19:44 DC Acetaminophen (Tylenol Tab) 650 mg ER BRIDGE PRN PO MILD PAIN/FEVER 09/19/16 19:00 09/19/16 19:44 DC Albuterol (Proventil 0.083% (Neb)) 2.5 mg Q6H RESP THERAPY NEB 09/19/16 19:00 Ipratropium [place] (Atrovent 0.02% (Neb)) 0.5 mg Q6H RESP THERAPY N 09/19/16 20:00 Ondansetron HCl (Zofran Inj) 4 mg Q6 STAT IV 09/19/16 18:51 09/19/16 19:45 DC Hydrocortisone (Solu-Cortef) 125 mg ONCE ONCE IV 09/19/16 19:00 09/19/16 19:26 DC Salmeterol Xinafoate/ Fluticasone (Advair 250/50 Diskus) 1 inh Q12 INH 09/19/16 21:00 09/19/16 21:00 DC Acetaminophen (Tylenol Tab) 650 mg Q6H PRN PO PAIN AND OR ELEVATED TEMP 09/19/16 19:00 09/19/16 19:47 DC Albuterol (Proventil 0.083% (Neb)) 2.5 mg Q6HWA RESP THERAPY N 09/19/16 20:00 09/19/16 20:00 DC Calcium Acetate (Phoslo) 667 mg WITH MEALS PO 09/20/16 08:00 Carvedilol (Coreg) 12.5 mg BID PO 09/19/16 21:00 09/19/16 21:00 DC Clonidine (Catapres) 0.1 mg TID PO 09/19/16 21:00 09/19/16 21:00 DC Docusate Sodium (Colace) 100 mg Q12 PO 09/19/16 21:00 Levothyroxine Sodium (Synthroid) 125 mcg BEFORE BREAKFAST PO 09/20/16 07:00 Minoxidil (Loniten) 5 mg BID PO 09/19/16 21:00 Multivit/Ca Carb/ B Cmplx/FA/Prenat (Katlyn-Michael) 1 tab DAILY PO 09/19/16 19:00 Nifedipine (Procardia Xl) 30 mg BID PO 09/19/16 21:00 Pantoprazole (Protonix Tab) 40 mg DAILY@06 PO 09/20/16 06:00 Prednisolone (Prelone (Ped)) 15 mg DAILY PO 09/19/16 19:00 09/19/16 19:28 DC Senna (Senokot) 1 tab DAILY PRN PO CONSTIPATION 09/19/16 19:00 Tamsulosin HCl (Flomax) 0.4 mg HS PO 09/19/16 21:00 Tiotropium [place] (Spiriva) 1 inh DAILY INH 09/20/16 09:00 Valsartan (Diovan) 320 mg DAILY PO 09/19/16 19:00 Insulin Human Regular (Novolin-R) 6 unit ONCE ONCE SC 09/19/16 19:00 09/19/16 19:01 Cancel Hydrocortisone (Solu-Cortef) 125 mg ONCE ONCE IV 09/19/16 19:30 09/19/16 19:31 DC Prednisolone (Prelone) 15 mg DAILY PO 09/20/16 09:00 Salmeterol Xinafoate/ Fluticasone (Advair 250/50 Diskus) 1 inh BID INH 09/19/16 21:00 Carvedilol (Coreg) 12.5 mg BID PO 09/19/16 21:00 Insulin Human Regular (Humulin R) 6 unit ONCE ONCE SC 09/19/16 20:00 09/19/16 20:01 DC Ondansetron HCl (Zofran Inj) 4 mg Q6H PRN IV NAUSEA AND/OR VOMITING 09/19/16 20:00 Acetaminophen (Tylenol Tab) 650 mg Q6H PRN PO PAIN &/OR FEVER 09/19/16 20:00 Clonidine (Catapres) 0.1 mg TID PO 09/19/16 21:00 Albuterol (Proventil 0.083% (Neb)) 2.5 mg Q6HWA RESP THERAPY PRN INH SHORTNESS OF BREATH 09/19/16 20:00 Procedures/MDM EKG read by me: Time 1535, rate 72 Rhythm: Sinus rhythm [place]: Left axis deviation Intervals: First-degree AV block ST-T waves: no ischemic changes Ectopy: Occasional PACs Q-waves: Q-wave in V2 Impression: Occasional PACs, no ischemia MDM: Patient is a 81-year-old male with end-stage renal disease who presents to the ER with shortness of breath for several hours. His shortness of breath started while he was at dialysis, and he was unable to complete dialysis. The patient has history of CHF and COPD. He was recently hospitalized for volume overload with pulmonary edema and questionable pneumonia. On exam, the patient has bibasilar rales. On chest x-ray, he has diffuse infiltrates versus asymmetric pulmonary edema. His potassium was found to be 6.6. His EKG shows slight peaking of T waves but normal rate and intervals. Patient was given albuterol, IV insulin, and IV dextrose to shift potassium as a bridge to dialysis. The patient was noted to have leukocytosis, so blood cultures and lactic acid were sent, and the patient was given broad-spectrum antibiotics. He does not have significant signs of sepsis, has a normal lactic acid, and IV fluids are likely to be more harmful than beneficial given the patient's volume overloaded status. Therefore, no fluids were given. The patient will be admitted by Dr. Mcallister for further infectious workup and correction of electrolytes, as well as dialysis for removal of fluid. Dr. Olivares, covering for Dr. Lake, will be consulted for nephrology. Departure Diagnosis: Primary Impression: Pulmonary edema Qualified Code: J81.0 - Acute pulmonary edema Additional Impressions: Pneumonia Qualified Code: J18.9 - Pneumonia of both lungs due to infectious organism, unspecified part of lung Hyperkalemia ESRD (end stage renal disease) on dialysis Condition: NANCY Elizondo MD Sep 19, 2016 15:44
[2016-09-19] MEDS ORDERED: NITROGLYCERIN 2% 1 GM OINT PKT TD ONE (16:00)
[2016-09-19 16:28] LABS: ADD SCAN DIFF NO
[2016-09-19 16:31] LABS: BASOPHIL # 0.1 10^3/ul (0.0-0.1); BASOPHILS % 0.3 % (0.0-2.0); EOSINOPHILS # 0.4 10^3/ul (0.0-0.5); EOSINOPHILS % 2.6 % (0.0-7.0); HEMATOCRIT 32.8 % (42.0-52.0); HEMOGLOBIN 10.8 g/dl (14.0-18.0); LYMPHOCYTES # 2.5 10^3/ul (0.8-2.9); LYMPHOCYTES % 16.4 % (15.0-51.0); MEAN CORPUSCULAR HEMOGLOBIN 30.3 pg (29.0-33.0); MEAN CORPUSCULAR HGB CONC 32.9 g/dl (32.0-37.0); MEAN CORPUSCULAR VOLUME 91.9 fl (82.0-101.0); MONOCYTE # 1.5 10^3/ul (0.3-0.9); MONOCYTES % 9.7 % (0.0-11.0); NEUTROPHIL # 10.7 10^3/ul (1.6-7.5); NEUTROPHILS % 69.8 % (39.0-77.0); PLATELET COUNT 313 10^3/UL (140-415); RED BLOOD COUNT 3.57 10^6/ul (4.70-6.10); RED CELL DISTRIBUTION WIDTH 14.9 % (11.5-14.5); WHITE BLOOD COUNT 15.3 10^3/ul (4.8-10.8)
[2016-09-19 16:48] LABS: INR 1.05; PARTIAL THROMBOPLASTIN TIME 31.7 Sec (25.0-35.0); PROTIME 13.7 Sec (12.2-14.2); PT RATIO 1.1
[2016-09-19 16:52] LABS: ALBUMIN 4.3 g/dl (3.3-4.9); ALBUMIN/GLOBULIN RATIO 1.38; CALCIUM 8.9 mg/dl (8.4-10.2); CREATININE 10.17 mg/dl (0.61-1.24); TOTAL PROTEIN 7.4 g/dl (6.1-8.1)
[2016-09-19 16:59] LABS: POTASSIUM 6.6 mmol/L (3.5-5.1)
[2016-09-19] MEDS ORDERED: INSULIN REGULAR 10 ML INJ IV ONE (17:00)
[2016-09-19] MEDS ORDERED: DEXTROSE 50% 50 ML SYRINGE IV ONE (17:00)
[2016-09-19] MEDS ORDERED: ALBUTEROL 0.083% (NEB) 2.5 MG/3 ML AMP HHN STA (17:00)
[2016-09-19 17:05] LABS: TROPONIN-I 0.021 ng/ml (0.00-0.12)
--- NOTE | 2016-09-19 17:59 | RADRPT ---
PROCEDURE: XR Chest. CLINICAL INDICATION: Shortness of breath TECHNIQUE: Single frontal chest x-ray. COMPARISON: 06/02/2016 FINDINGS: There are scattered bilateral infiltrates increased since previous exam. Right sided tunneled dialy sis catheter has been removed. . Calcific atherosclerosis of the aorta is present.. The cardiomedi astinal silhouette is unremarkable. The osseous structures are intact. IMPRESSION: Increased scattered patchy bilateral infiltrates. Right sided tunneled dialysis catheter removed.. RPTAT: QQ .Jose Manuel Loo MD, Date Time Electronically viewed and signed by .Jose Manuel Loo MD, on 09/19/2016 17:59 .L/
[2016-09-19] MEDS ORDERED: INSULIN REGULAR, HUMAN 100 UNIT/1 ML 3ML VIAL IV ONE (18:00)
[2016-09-19] MEDS ORDERED: CEFEPIME 1GM/50 ML (PMX) 50 ML IVPB ONE (18:30)
[2016-09-19] MEDS ORDERED: ONDANSETRON 4 MG INJ IV STA (18:51)
[2016-09-19] MEDS ORDERED: HYDROCORTISONE 250 MG INJ IV ONE (19:00)
[2016-09-19] MEDS: ALBUTEROL 0.083% (NEB) 2.5 MG/3 ML AMP NEB SCH (19:00)
[2016-09-19] MEDS ORDERED: predniSOLONE (3 MG/ML PO SYG) PO SCH (19:00)
[2016-09-19] MEDS ORDERED: ONDANSETRON 4 MG INJ IV PRN ×2 (19:00→20:00)
[2016-09-19] MEDS ORDERED: INSULIN REGULAR 10 ML INJ SC ONE (19:00)
[2016-09-19] MEDS ORDERED: ACETAMINOPHEN 325 MG TAB PO PRN ×3 (19:00→20:00)
[2016-09-19] MEDS ORDERED: SENNA TAB PO PRN (19:00)
[2016-09-19] MEDS: VALSARTAN 160 MG TAB PO SCH (19:00)
[2016-09-19] MEDS ORDERED: HYDROCORTISONE 100 MG INJ IV ONE (19:30)
[2016-09-19] MEDS ORDERED: ALBUTEROL 0.083% (NEB) 2.5 MG/3 ML AMP INH PRN (20:00)
[2016-09-19] MEDS ORDERED: INSULIN REGULAR, HUMAN 100 UNIT/1 ML 3ML VIAL SC ONE (20:00)
[2016-09-19] MEDS: IPRATROPIUM (NEB) 0.5 MG/2.5 ML AMP HHN SCH (20:00)
[2016-09-19] MEDS ORDERED: ALBUTEROL 0.083% (NEB) 2.5 MG/3 ML AMP HHN SCH (20:00)
[2016-09-19] MEDS: MINOXIDIL 2.5 MG TAB PO SCH (21:00)
[2016-09-19] MEDS ORDERED: SALMETEROL/FLUTICASONE 250/50 INHA INH SCH (21:00)
[2016-09-19] MEDS: TAMSULOSIN (SR) 0.4 MG CAP PO SCH (23:36)
[2016-09-19] MEDS: SALMETEROL/FLUTICASONE 250/50 INHA INH SCH (23:36)
[2016-09-19] MEDS: MULTIVIT/CA CARB/B CMPLX/FA TAB PO SCH (23:36)
[2016-09-19] MEDS: DOCUSATE SODIUM 100 MG CAP PO SCH (23:37)
[2016-09-19] MEDS: NIFEdipine (XL) 30 MG TAB PO SCH (23:37)
[2016-09-20] VITALS (11 sets, daily range): BP systolic 103–150; BP diastolic 57–72; PULSE 66–94; RESP 17–20
[2016-09-20] MEDS ORDERED: DEXTROSE 50% 50 ML SYRINGE IV PRN ×2 (01:00)
[2016-09-20] MEDS ORDERED: GLUCOSE GEL 15 GRAM TUBE BUCCAL PRN (01:00)
[2016-09-20] MEDS ORDERED: GLUCOSE GEL 15 GRAM TUBE PO PRN ×2 (01:00)
[2016-09-20] MEDS ORDERED: GLUCAGON 1 MG INJ IM PRN (01:00)
[2016-09-20] MEDS: ALBUTEROL 0.083% (NEB) 2.5 MG/3 ML AMP NEB SCH ×4 (01:32→19:58)
[2016-09-20] MEDS: IPRATROPIUM (NEB) 0.5 MG/2.5 ML AMP HHN SCH ×4 (02:00→19:57)
[2016-09-20] MEDS: LEVOTHYROXINE 125 MCG TAB PO SCH (06:14)
[2016-09-20] MEDS: PANTOPRAZOLE (EC) 40 MG TAB PO SCH (06:14)
[2016-09-20 07:24] LABS: ADD SCAN DIFF NO
[2016-09-20] MEDS: ACCU-CHEK XX SCH ×4 (07:30→20:59)
[2016-09-20 07:33] LABS: BASOPHIL # 0.1 10^3/ul (0.0-0.1); BASOPHILS % 0.4 % (0.0-2.0); EOSINOPHILS # 0.3 10^3/ul (0.0-0.5); EOSINOPHILS % 2.2 % (0.0-7.0); HEMOGLOBIN 10.2 g/dl (14.0-18.0); LYMPHOCYTES # 2.2 10^3/ul (0.8-2.9); LYMPHOCYTES % 17.1 % (15.0-51.0); MEAN CORPUSCULAR HEMOGLOBIN 30.4 pg (29.0-33.0); MEAN CORPUSCULAR HGB CONC 32.9 g/dl (32.0-37.0); MEAN CORPUSCULAR VOLUME 92.3 fl (82.0-101.0); MEAN PLATELET VOLUME 9.1 fl (7.4-10.4); MONOCYTE # 1.1 10^3/ul (0.3-0.9); MONOCYTES % 8.7 % (0.0-11.0); NEUTROPHIL # 9.1 10^3/ul (1.6-7.5); NEUTROPHILS % 70.2 % (39.0-77.0); PLATELET COUNT 293 10^3/UL (140-415); RED BLOOD COUNT 3.36 10^6/ul (4.70-6.10); WHITE BLOOD COUNT 12.9 10^3/ul (4.8-10.8)
[2016-09-20] MEDS: INSULIN ASPART [NOVOLOG] 3 ML PEN SC SCH ×3 (08:00→17:07)
[2016-09-20 08:03] LABS: CALCIUM 9.2 mg/dl (8.4-10.2); CREATININE 7.88 mg/dl (0.61-1.24); POTASSIUM 5.4 mmol/L (3.5-5.1)
[2016-09-20] MEDS: VALSARTAN 160 MG TAB PO SCH (08:49)
[2016-09-20] MEDS: MULTIVIT/CA CARB/B CMPLX/FA TAB PO SCH (08:49)
[2016-09-20] MEDS: CALCIUM ACETATE 667 MG CAP PO SCH ×3 (08:49→17:06)
[2016-09-20] MEDS: DOCUSATE SODIUM 100 MG CAP PO SCH ×2 (08:50→21:24)
[2016-09-20] MEDS: NIFEdipine (XL) 30 MG TAB PO SCH ×2 (08:50→21:24)
[2016-09-20] MEDS: MINOXIDIL 2.5 MG TAB PO SCH ×2 (08:50→21:00)
[2016-09-20] MEDS: TIOTROPIUM 18 MCG CAPSULE INHA DEV INH SCH (08:51)
[2016-09-20] MEDS: SALMETEROL/FLUTICASONE 250/50 INHA INH SCH ×2 (08:51→21:50)
[2016-09-20] MEDS: predniSOLONE (3 MG/ML) CUP PO SCH (08:51)
--- NOTE | 2016-09-20 10:32 | CONS ---
DATE OF ADMISSION: 09/19/2016 DATE OF CONSULTATION: NEPHROLOGY CONSULTATION REASON FOR CONSULTATION: Chronic kidney disease management. 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 The patient has numerous admissions to [facility]. The patient is somewhat noncompliant with his outpatient dialysis sessions in that he refuses quite frequently to stay for the complete session. Yesterday, on the day of admission, once again, he cut his dialysis short, went home, developed incr easing shortness of breath and chest discomfort, presented to the ER with fluid overload and hyperka lemia, and therefore was admitted. We did perform urgent dialysis last evening for both fluid removal and hyperkalemia, and he feels ma rkedly improved this morning. He currently denies any chest pain or shortness of breath. PAST MEDICAL HISTORY: Please see full dictated problem list. ALLERGIES: NONE. HABITS: Tobacco: None. Alcohol: None. CURRENT MEDICATIONS: 1. Valsartan 325 mg daily. 2. Spiriva 1 puff daily. 3. Flomax 0.4 mg at bedtime. 4. Advair 250/50, one puff twice a day. 5. Prednisone 15 mg daily. 6. Pantoprazole 40 mg daily. 7. Nifedipine XL 30 mg b.i.d. 8. Nephro-Michael. 9. Minoxidil 5 mg b.i.d. 10. Synthroid 125 mcg daily. 11. Insulin per sliding scale. 12. Clonidine 0.1 mg t.i.d. 13. Carvedilol 12.5 mg b.i.d. 14. PhosLo 1 to 2 tabs t.i.d. with meals. 15. Albuterol hand-held nebulizer. 16. Maxipime 1 gram IV q. 24 hours. REVIEW OF SYSTEMS: As per HPI. Otherwise the 14-point ROS is negative. PHYSICAL EXAMINATION: GENERAL: Awake, alert, typically angry gentleman in no acute distress. VITAL SIGNS: He is afebrile, blood pressure 126/62, heart rate is 80 and regular, respirations are 12 to 14, O2 saturation 99% on 2 liters. SKIN: No rashes. HEAD: Normocephalic. EYES: Pupils are round and reactive. NECK: No adenopathy. LUNGS: Scattered rhonchi with generally diminished breath sounds diffusely. HEART: S1, S2, no new murmurs. ABDOMEN: Soft. EXTREMITIES: No edema. LABORATORY DATA: Currently white count 12.9, hemoglobin 10.2, hematocrit 31, platelet count 293,000 . INR is 1.1. On admission, K was 6.6, currently sodium 139, potassium 5.4, chloride 101, bicarbon ate 26, BUN 69, creatinine 7.88, glucose 88. Lactic acid is 1.3, calcium 9.2, total bilirubin 0, T 18, ALT 27, alkaline phosphatase 63, troponin 0.02. Total protein 7.4, albumin is 4.3. Last nigh t, chest x-ray showed scattered bilateral infiltrates. PROBLEM LIST: 1. Hyperkalemia due to dialytic noncompliance, status post emergent treatment last night with resol ution. 2. Congestive heart failure due to dialytic noncompliance; again, resolved with ultrafiltration las t evening. 3. Recurrent admissions for fluid overload due to above. 4. 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 5. Chronic obstructive pulmonary disease with interstitial lung disease. 6. Diabetes mellitus. 7. Depression. 8. History of benign prostatic hypertrophy. 9. Anemia of end-stage renal disease. 10. Remote history of atherosclerotic coronary vascular disease with a history of PCI stenting in t he past, currently inactive. RECOMMENDATIONS: 1. The patient was successfully urgently dialyzed with resolution of his heart failure and hyperkal emia. 2. Recheck chest x-ray. 3. Followup labs in the morning. Dictated By: ELENO MIR MD MM/CAMILO Conf#: [id number] DID#: [id number]
--- NOTE | 2016-09-20 10:40 | RADRPT ---
PROCEDURE: US Abdomen. CLINICAL INDICATION: hematuria TECHNIQUE: Multiple real-time images were acquired of the patient's abdomen and retroperitoneum ut ilizing a high resolution transducer. COMPARISON: August 11, 2016 FINDINGS: Echogenicity of the liver is diffusely increased, suggesting fatty infiltration. No gallstones are i dentified within the gallbladder. There is no pericholecystic fluid or gallbladder wall thickening. No intra or extrahepatic biliary dilatation is seen. The common bile duct measures 4 mm in maximal dimension. The visualized portions of the pancreas are unremarkable. The spleen is enlarged measu ring 15.5 cm. No free fluid is identified. Bilateral renal cysts are present measuring up to 3.6 cm on the left. The kidneys are increased in echogenicity suggesting medical renal disease. The right kidney measures 11.6 cm in long dimension. The left kidney measures 9.2 cm. There is no dilatation of the pelvicaliceal systems bilaterally. There are no perinephric fluid collections. There are no areas of increased echogenicity to sugge st nephrolithiasis. The mid aorta measures 1.6 cm in transverse dimension. IMPRESSION: Hepatic steatosis. Increased echogenicity of the kidneys suggesting medical renal disease. No hydronephrosis. No sonog raphically apparent renal calculi though CT is more sensitive in this evaluation. Splenomegaly. Physician Stacey Date Time Electronically viewed and signed by Physician Stacey on 09/20/2016 10:39 ML/
--- NOTE | 2016-09-20 10:42 | RADRPT ---
PROCEDURE: XR Chest. CLINICAL INDICATION: Shortness of breath. TECHNIQUE: Single frontal view of the chest was obtained. COMPARISON: Chest x-ray 09/19/2016 05:53 p.m. FINDINGS: Monitoring electrodes are drop across the chest. There are degenerative osteophytes in the thoracic spine. The bones are rarefied. The left ventricle is enlarged. The cardiomediastinal silhouette and hilar structures are normal. The pulmonary vasculature is upper limits of normal. There are vas cular calcifications in the aortic arch. There are plate-like densities along the lower left heart b order with partial clearing of nodular infiltrate seen in the periphery of the left mid and lower live ng field. Plate-like atelectasis identified in the medial aspect of the right lower lobe cleared ov er the interval. The costophrenic angles are normal. IMPRESSION: 1. Interval clearing of the peripheral nodular infiltrates predominately identified in the periphery of the left lower lung field on 09/19/2016. 2. Increased interstitial markings persist in the bases of the lungs which likely represents residu al scarring or areas of atelectasis. 3. Atherosclerosis of the aortic arch. 4. Left ventricular enlargement. No convincing evidence of CHF. RPTAT:AAJJ Physician Larisa Date Time Electronically viewed and signed by Physician Larisa on 09/20/2016 10:42 EMMANUEL/
[2016-09-20] MEDS ORDERED: ALBUMIN HUMAN 25% 100 ML IV SCH (11:30)
[2016-09-20] MEDS: INSULIN GLARGINE [LANtus] 3 ML PEN SC SCH (20:00)
[2016-09-20] MEDS: TAMSULOSIN (SR) 0.4 MG CAP PO SCH (21:23)
[2016-09-20] MEDS ORDERED: VANCOMYCIN 1 GM (PMX) 250 ML IVPB SCH (22:00)
[2016-09-20] MEDS ORDERED: METHYLPREDNISOLONE 125 MG INJ IV ONE (22:30)
--- NOTE | 2016-09-20 22:58 | HP ---
Date/Time of Note Date/Time of Note DATE: 09/20/16 TIME: 22:47 Assessment/Plan VTE Prophylaxis VTE Prophylaxis Intervention: ambulation, anti-embolic stocking VTE Contraindication Reason: peripheral vascular disease Lines/Catheters IV Catheter Type (from Nrsg): [place] line still needed: No Urinary Cath still in place: No Reason Cath still needed: urinary retention Assessment/Plan Assessment/Plan 1. Pulmonary edema due to of fluid overload. Acute on chronic respiratory insufficiency,on bronchodilatations and 02. 2. Hematuria.Was on home steroids now 5 mg qd more than 2 months. 3. Sepsis: Gram positive culture positive in one bottle, vanco on board; other cultures are pending. 4. End-stage renal disease-on HD-Discuses with .Chronic metabolic acidosis and hypokalemia with hypocapnia. 5. Anxiety, depression with dissatisfaction 6. Diabetes type 2-better controlled 7. Osteoarthritis. 8. Anemia of chronic disease-H/H 07/24 9. Status post multiple units of packed red blood cell transfusions-now getting more.. 10. Weight loss-more than 60lb in 11 months. 11. Hypertension-better controlled. 12. Memory impairment. 13. Major depression. 14. Back pain. 15. Benign prostatic hypertrophy. 16. S/P left forearm a/v shunt placement for dialysis-functions well , not mature yet. 17. S/P right Jugular vein cannulation for dialysis-no signs of infection. 18. Hypoxemia with hypercapnia(Hx of) on home 02 and BIPAP. 19. Anxiety; borderline personality; 20. Excessive thirst. 21. Constipation 22.Chest pain during HD today frequently(s/p 2 angiographies and stenting)cardiology consult. 23.Terminally ill with inability to decide DNR status. He refused to answer. Macario I received a [place]o from RN that he agreed for DNR and DNI. 24.Incomplete data. Cont'd Hospitalization Reason: HD. HPI/ROS Admit Date/Time Admit Date/Time My first report got lost yesterday.Sep 19, 2016 at 18:51 Hx of Present Illness Severe sob with episodes of chills worse last 2 days. I received a call from the patient while he was in the paramedics car. Anxious, tense irritable with distantly audible wheezing. ROS Subjective hx not possible: pt critical Constitutional: chills, diaphoresis, disoriented, nausea, poor po, No fatigue, No febrile, No improved, No no complaints, No other, No weight change Eyes: redness, visual change, No discharge, No no complaints, No other, No pain ENT: congestion, dysphagia, pain, sore throat, No bleeding, No discharge, No no complaints, No other Respiratory: cough, pleuritic pain, shortness of breath, wheezing, No no complaints, No other, No pain, No sputum Cardiovascular: chest pain, lightheadedness, orthopenea, paroxysmal nocturnal dyspnea, No edema, No no complaints, No other, No palpitations Gastrointestinal: constipation, decreased appetite, flatus, nausea, pain, passing stool, No blood, No diarrhea, No no complaints, No other, No vomiting Genitourinary: bleeding (x 2 last 2 days. No cloths. has urine output. ), dysuria, flank pain, hematuria Musculoskeletal: back pain, bone/joint pain, neck pain, No no complaints, No other, No restricted range of motion, No swelling Skin: bruising, laceration, pruritis, rash, No erythema, No no complaints, No other, No skin lesions Neurologic: confusion, dizziness, headache, No focal-weakness, No no complaints, No other, No seizure, No syncope Endocrine: dry skin, polydypsia, temp intolerance, No no complaints, No other, No polyuria, No weight change Lymphatic: No adenopathy, No lymphadema, No no complaints, No other, No tender nodes Psychological: anxiety, confusion, depression, No nl mood/affect, No no complaints, No other, No suicidal Immunologic: pruritis, rhinitis, urticaria PMH/Family/Social Past Medical History Medical History: angina, colitis, congestive heart failure, coronary artery disease, diabetes, GERD, GI bleed, hypertension, hypothyroid, peptic ulcer disease, urinary tract infection Past Surgical History Past Surgical Hx: angioplasty, coronary bypass surgery, endoscopy, other Family History Significant Family History: no pertinent family hx, COPD, diabetes, hypertension Social History Alcohol Use: rarely Smoking Status: Former smoker Drug Use: none Exam/Review of Systems Vital Signs Vitals Vital Signs Date Time Temp Pulse Resp B/P Pulse Ox O2 Delivery O2 Flow Rate FiO2 09/20/16 20:26 71 09/20/16 20:18 97.8 19 118/57 97 09/20/16 20:00 Nasal Cannula 2.0 09/19/16 17:32 21 Intake and Output 09/19/16 09/19/16 09/20/16 15:00 23:00 07:00 Intake Total 500 ml 240 ml Output Total 3000 ml 0 ml Balance -2500 ml 240 ml Exam Constitutional: alert, distress, frail, oriented, well developed, No non-verbal, No other Psych: anxiety, confusion, depression, No nl mood/affect, No no complaints, No other, No suicidal Head: atraumatic, normocephalic, No hematomas, No lacerations, No other Eyes: EOMI, PERRL, nl lids, No fundi, disc, No icteric, No nl conjunctiva, No nl sclera, No other ENMT: tympanic membranes, No intubated, No mucosa pink and moist, No nl external ears & nose, No nl lips & teeth, No nl nasal mucosa & septum, No other Neck: bruits, jvd, non-tender, nuchal rigidity, thyromegaly, No masses, No other, No supple Respiratory: congested cough, diminished breath sounds, normal air movement, tactile fremitus, No clear to auscultation, No crackles/rales, No intercostal retraction, No labored breathing, No other, No respirations, No wheezing Cardiovascular: bruits, irregular rhythm, systolic murmur, No S3, No S4, No diastolic murmur, No edema, No gallop, No jugular venous distention (JVD), No murmurs/extra sounds, No nl pulses, No other, No regular rate and rhythm, No rub Gastrointestinal: bowel sounds, nl liver, spleen, soft, No ascites, No distended, No firm, No hepatomegaly, No mass, No non-tender, No other, No rebound or guarding, No splenomegaly, No surgical scars, No tender Genitourinary - Male: No CVA tenderness, No discharge, No nl penis, No nl scrotum, No other Musculoskeletal: joint tenderness, muscle tone, muscle weakness Extremities: other (Positive for bruit of the left cubital area in a side of AV shunt.), No calf tenderness, No clubbing, No cyanosis, No edema, No normal pulses, No palpable cord, No pitting pedal edema, No tenderness Neurological: METAL REFINER II-XII intact (decreased hearing.), confused, numbness Skin: diaphoresis Labs Result Diagram: 09/20/16 0532 09/20/16 0532 Medications Medications Current Medications Docusate Sodium (Colace) 100 mg Q12 PO Last administered on 09/20/16 21:24; Admin Dose 100 MG; Start 09/19/16 at 21:00 Minoxidil (Loniten) 5 mg BID PO Last administered on 09/20/16 08:50; Admin Dose 5 MG; Start 09/19/16 at 21:00 Multivit/Ca Carb/ B Cmplx/FA/Prenat (Katlyn-Michael) 1 tab DAILY PO Last administered on 09/20/16 08:49; Admin Dose 1 TAB; Start 09/19/16 at 19:00 Nifedipine (Procardia Xl) 30 mg BID PO Last administered on 09/20/16 21:24; Admin Dose 30 MG; Start 09/19/16 at 21:00 Pantoprazole (Protonix Tab) 40 mg DAILY@06 PO Last administered on 09/20/16 06 :14; Admin Dose 40 MG; Start 09/20/16 at 06:00 Senna (Senokot) 1 tab DAILY PRN PO CONSTIPATION; Start 09/19/16 at 19:00 Tamsulosin HCl (Flomax) 0.4 mg HS PO Last administered on 09/20/16 21:23; Admin Dose 0.4 MG; Start 09/19/16 at 21:00 Tiotropium [place] (Spiriva) 1 inh DAILY INH Last administered on 09/20/16 08: 51; Admin Dose 1 INH; Start 09/20/16 at 09:00 Valsartan (Diovan) 320 mg DAILY PO Last administered on 09/20/16 08:49; Admin Dose 320 MG; Start 09/19/16 at 19:00 Prednisolone (Prelone) 15 mg DAILY PO Last administered on 09/20/16 08:51; Admin Dose 15 MG; Start 09/20/16 at 09:00 Salmeterol Xinafoate/ Fluticasone (Advair 250/50 Diskus) 1 inh BID INH Last administered on 09/20/16 21:50; Admin Dose 1 INH; Start 09/19/16 at 21:00 Carvedilol (Coreg) 12.5 mg BID PO Last administered on 09/20/16 08:51; Admin Dose 12.5 MG; Start 09/19/16 at 21:00 Ondansetron HCl (Zofran Inj) 4 mg Q6H PRN IV NAUSEA AND/OR VOMITING; Start 01/26 at 20:00 Acetaminophen (Tylenol Tab) 650 mg Q6H PRN PO PAIN &/OR FEVER; Start 09/19/16 at 20:00 Clonidine (Catapres) 0.1 mg TID PO Last administered on 09/20/16 08:50; Admin Dose 0.1 MG; Start 09/19/16 at 21:00 Insulin Glargine (Lantus) 8 unit DAILY@20 SC ; Start 09/20/16 at 20:00 Miscellaneous Information 1 ea NOTE XX ; Start 09/20/16 at 01:00 Glucose (Glutose) 15 gm Q15M PRN PO DECREASED GLUCOSE; Start 09/20/16 at 01:00 Glucose (Glutose) 22.5 gm Q15M PRN PO DECREASED GLUCOSE; Start 09/20/16 at 01: 00 Dextrose (D50w Syringe) 25 ml Q15M PRN IV DECREASED GLUCOSE; Start 09/20/16 at 01:00 Dextrose (D50w Syringe) 50 ml Q15M PRN IV DECREASED GLUCOSE; Start 09/20/16 at 01:00 Glucagon (Glucagen) 1 mg Q15M PRN IM DECREASED GLUCOSE; Start 09/20/16 at 01:00 Glucose 15 gm 15 gm Q15M PRN BUCCAL DECREASED GLUCOSE; Start 09/20/16 at 01:00 Vancomycin HCl (Vancocin) 250 ml @ 125 mls/hr ONCE IVPB ; Start 09/20/16 at 22: 00; Stop 09/20/16 at 23:59 Methylprednisolone Sodium Succinate (Solu-Medrol) 30 mg ONCE IV ; Start at 21:00; Stop 09/21/16 at 21:01 HINA CASTILLO MD Sep 20, 2016 22:57
[2016-09-21] VITALS (19 sets, daily range): BP systolic 96–147; BP diastolic 47–79; PULSE 69–96; RESP 19–20
[2016-09-21] MEDS: IPRATROPIUM (NEB) 0.5 MG/2.5 ML AMP HHN SCH ×4 (02:00→20:13)
[2016-09-21] MEDS: ALBUTEROL 0.083% (NEB) 2.5 MG/3 ML AMP NEB SCH ×4 (02:00→20:13)
[2016-09-21] MEDS: PANTOPRAZOLE (EC) 40 MG TAB PO SCH (05:20)
[2016-09-21 07:35] LABS: ADD SCAN DIFF NO
[2016-09-21 07:45] LABS: BASOPHILS % 0.2 % (0.0-2.0); EOSINOPHILS % 0.2 % (0.0-7.0); HEMATOCRIT 29.8 % (42.0-52.0); HEMOGLOBIN 9.7 g/dl (14.0-18.0); LYMPHOCYTES # 0.9 10^3/ul (0.8-2.9); LYMPHOCYTES % 6.7 % (15.0-51.0); MEAN CORPUSCULAR HEMOGLOBIN 30.1 pg (29.0-33.0); MEAN CORPUSCULAR HGB CONC 32.6 g/dl (32.0-37.0); MEAN CORPUSCULAR VOLUME 92.5 fl (82.0-101.0); MEAN PLATELET VOLUME 9.4 fl (7.4-10.4); MONOCYTE # 0.1 10^3/ul (0.3-0.9); MONOCYTES % 0.6 % (0.0-11.0); NEUTROPHIL # 11.9 10^3/ul (1.6-7.5); NEUTROPHILS % 91.2 % (39.0-77.0); PLATELET COUNT 287 10^3/UL (140-415); RED BLOOD COUNT 3.22 10^6/ul (4.70-6.10); RED CELL DISTRIBUTION WIDTH 14.7 % (11.5-14.5); WHITE BLOOD COUNT 13.1 10^3/ul (4.8-10.8)
--- NOTE | 2016-09-21 07:53 | CONS ---
Date/Time of Note Date/Time of Note DATE: 09/21/16 TIME: 07:52 Assessment/Plan Assessment/Plan Additional Assessment/Plan 1. CHF resolved 2. Known CAD, without angina 3. CKD, to have HD today 4. Hx interstitial lung dz Consultation Date/Type/Reason Admit Date/Time Sep 19, 2016 at 18:51 Initial Consult Date Detailed Summary Respiratory: No shortness of breath Cardiovascular: No chest pain Gastrointestinal: no complaints Genitourinary: no complaints Exam/Review of Systems Vital Signs Vitals Vital Signs Date Time Temp Pulse Resp B/P Pulse Ox O2 Delivery O2 Flow Rate FiO2 09/21/16 07:41 97.9 73 20 138/65 97 09/21/16 02:02 2.0 09/20/16 22:30 Nasal Cannula 09/19/16 17:32 21 Intake and Output 09/20/16 09/20/16 09/21/16 14:59 22:59 06:59 Intake Total 850 ml 370 ml Output Total 0 ml Balance 850 ml 370 ml Exam Neck: No jvd Respiratory: diminished breath sounds (and few dry rales present at bases) Cardiovascular: regular rate and rhythm, No S3 Gastrointestinal: soft Extremities: No edema (and no calf tend) Results Result Diagram: 09/20/16 0532 09/20/16 0532 Results 24 hrs Laboratory Tests Test 09/20/16 12:13 09/20/16 17:05 09/20/16 20:56 Bedside Glucose 139 117 127 Medications Medications Current Medications Docusate Sodium (Colace) 100 mg Q12 PO Last administered on 09/20/16 21:24; Admin Dose 100 MG; Start 09/19/16 at 21:00 Minoxidil (Loniten) 5 mg BID PO Last administered on 09/20/16 08:50; Admin Dose 5 MG; Start 09/19/16 at 21:00 Multivit/Ca Carb/ B Cmplx/FA/Prenat (Katlyn-Michael) 1 tab DAILY PO Last administered on 09/20/16 08:49; Admin Dose 1 TAB; Start 09/19/16 at 19:00 Nifedipine (Procardia Xl) 30 mg BID PO Last administered on 09/20/16 21:24; Admin Dose 30 MG; Start 09/19/16 at 21:00 Pantoprazole (Protonix Tab) 40 mg DAILY@06 PO Last administered on 09/21/16 05 :20; Admin Dose 40 MG; Start 09/20/16 at 06:00 Senna (Senokot) 1 tab DAILY PRN PO CONSTIPATION; Start 09/19/16 at 19:00 Tamsulosin HCl (Flomax) 0.4 mg HS PO Last administered on 09/20/16 21:23; Admin Dose 0.4 MG; Start 09/19/16 at 21:00 Tiotropium [place] (Spiriva) 1 inh DAILY INH Last administered on 09/20/16 08: 51; Admin Dose 1 INH; Start 09/20/16 at 09:00 Valsartan (Diovan) 320 mg DAILY PO Last administered on 09/20/16 08:49; Admin Dose 320 MG; Start 09/19/16 at 19:00 Prednisolone (Prelone) 15 mg DAILY PO Last administered on 09/20/16 08:51; Admin Dose 15 MG; Start 09/20/16 at 09:00 Salmeterol Xinafoate/ Fluticasone (Advair 250/50 Diskus) 1 inh BID INH Last administered on 09/20/16 21:50; Admin Dose 1 INH; Start 09/19/16 at 21:00 Carvedilol (Coreg) 12.5 mg BID PO Last administered on 09/20/16 08:51; Admin Dose 12.5 MG; Start 09/19/16 at 21:00 Ondansetron HCl (Zofran Inj) 4 mg Q6H PRN IV NAUSEA AND/OR VOMITING; Start 01/26 at 20:00 Acetaminophen (Tylenol Tab) 650 mg Q6H PRN PO PAIN &/OR FEVER; Start 09/19/16 at 20:00 Clonidine (Catapres) 0.1 mg TID PO Last administered on 09/20/16 08:50; Admin Dose 0.1 MG; Start 09/19/16 at 21:00 Insulin Glargine (Lantus) 8 unit DAILY@20 SC ; Start 09/20/16 at 20:00 Miscellaneous Information 1 ea NOTE XX ; Start 09/20/16 at 01:00 Glucose (Glutose) 15 gm Q15M PRN PO DECREASED GLUCOSE; Start 09/20/16 at 01:00 Glucose (Glutose) 22.5 gm Q15M PRN PO DECREASED GLUCOSE; Start 09/20/16 at 01: 00 Dextrose (D50w Syringe) 25 ml Q15M PRN IV DECREASED GLUCOSE; Start 09/20/16 at 01:00 Dextrose (D50w Syringe) 50 ml Q15M PRN IV DECREASED GLUCOSE; Start 09/20/16 at 01:00 Glucagon (Glucagen) 1 mg Q15M PRN IM DECREASED GLUCOSE; Start 09/20/16 at 01:00 Glucose (Glutose) 15 gm Q15M PRN BUCCAL DECREASED GLUCOSE; Start 09/20/16 at 01 :00 Methylprednisolone Sodium Succinate (Solu-Medrol) 30 mg ONCE IV ; Start at 21:00; Stop 09/21/16 at 21:01 TRUE GTZ MD Sep 21, 2016 07:53
[2016-09-21 08:17] LABS: ALBUMIN 3.8 g/dl (3.3-4.9); ALBUMIN/GLOBULIN RATIO 1.4; CALCIUM 9.2 mg/dl (8.4-10.2); CREATININE 10.17 mg/dl (0.61-1.24); TOTAL PROTEIN 6.5 g/dl (6.1-8.1)
[2016-09-21] MEDS: ACCU-CHEK XX SCH ×4 (08:28→21:05)
[2016-09-21] MEDS: MULTIVIT/CA CARB/B CMPLX/FA TAB PO SCH (08:29)
[2016-09-21] MEDS: DOCUSATE SODIUM 100 MG CAP PO SCH ×2 (08:29→21:01)
[2016-09-21] MEDS: predniSOLONE (3 MG/ML) CUP PO SCH (08:29)
[2016-09-21] MEDS: LEVOTHYROXINE 125 MCG TAB PO SCH (08:32)
[2016-09-21] MEDS: CALCIUM ACETATE 667 MG CAP PO SCH ×3 (08:32→17:26)
[2016-09-21] MEDS: SALMETEROL/FLUTICASONE 250/50 INHA INH SCH ×2 (08:33→20:59)
[2016-09-21] MEDS: INSULIN ASPART [NOVOLOG] 3 ML PEN SC SCH ×3 (08:43→17:29)
[2016-09-21 08:44] LABS: POTASSIUM 7.3 mmol/L (3.5-5.1)
[2016-09-21] MEDS: TIOTROPIUM 18 MCG CAPSULE INHA DEV INH SCH (08:51)
[2016-09-21] MEDS: VALSARTAN 160 MG TAB PO SCH (09:00)
[2016-09-21] MEDS: NIFEdipine (XL) 30 MG TAB PO SCH ×2 (09:00→20:54)
[2016-09-21] MEDS: MINOXIDIL 2.5 MG TAB PO SCH ×2 (09:00→20:53)
[2016-09-21] MEDS ORDERED: ALBUMIN HUMAN 25% 50 ML IV PRN (11:30)
[2016-09-21] MEDS ORDERED: AMIODARONE 200 MG TAB PO SCH (13:30)
--- NOTE | 2016-09-21 16:09 | CONS ---
Date/Time of Note Date/Time of Note DATE: 09/21/16 TIME: 15:52 Assessment/Plan Assessment/Plan Chief Complaint/Hosp Course NSVT: Occurred during HD and is likely due to electrolyte/fluid shifts. ?may be the reason he had SOB during HD on date of admission. Acute on chronic diastolic heart failure: EF normal 04/28. Mild decompensation currently but had HD x 2 Gram positive bacteremia: 1/2 sets, unclear species but may be coag neg staph vs staph aureus CAD s/p PCI RCA 12/26 with repeat cath 01/25 unchanged. No chest pain ESRD on HD:TTS. Had HD 09/19 and 09/21 Hyperkalemia: multifactorial but also on valsartan HTN: on multiple meds. -start ASA as pt notes that he has minimal or no hematuria on 81mg and he had a stent 9 months ago -continue coreg 12.5mg BID (did not receive this am due to HD), uptitrate as BP tolerates. Currently refusing to take coreg as BP 110s. He will take when >140 -hold amiodarone for now -check labs now -d/c valsartan to allow for BB uptitration and also due to hyperkalemia -continue clonidine, nifedipine -consider statin if no contraindication -recheck echo Problems: Consultation Date/Type/Reason Admit Date/Time Sep 19, 2016 at 18:51 Date of Consultation: Sep 21, 2016 Type of Consultation: Cardiology Reason for Consultation NSVT Referring Provider: HINA CASTILLO MD Hx of Present Illness 81 yo M with a h/o CAD s/p PCI RCA 12/26 with repeat cath 01/25 showing patent stent and mild nonobstructive CAD, chronic recurrent diastolic heart failure ( last EF normal 04/28), ESRD on HD, HTN, hematuria, BPH, who presented with SOB during HD. The pt notes that he has had multiple admissions for CHF as he does not believe the dialysis center is able to remove adequate amounts of fluid. He came in this time with similar complaints but his SOB was mainly during HD and improved when it was stopped. He denies having chest pain with HD though previously he has complained of chest pain even after he was revascularized. His K was high on admission and again this am and he has had HD. He had runs of NSVT up to 9 beats during HD today and looking back on tele he had similar less frequent episodes 2 days ago also likely during HD. The NSVT has resolved now that HD has been completed. He denies orthopnea, PND, edema. per hPI Eyes: redness, visual change, No discharge, No no complaints, No other, No pain ENT: congestion, dysphagia, pain, sore throat, No bleeding, No discharge, No no complaints, No other Respiratory: No shortness of breath Cardiovascular: No chest pain Gastrointestinal: no complaints Genitourinary: no complaints Musculoskeletal: back pain, bone/joint pain, neck pain, No no complaints, No other, No restricted range of motion, No swelling Skin: bruising, laceration, pruritis, rash, No erythema, No no complaints, No other, No skin lesions Neurologic: confusion, dizziness, headache, No focal-weakness, No no complaints, No other, No seizure, No syncope Lymphatic: No adenopathy, No lymphadema, No no complaints, No other, No tender nodes Psychological: anxiety, confusion, depression, No nl mood/affect, No no complaints, No other, No suicidal Immunologic: pruritis, rhinitis, urticaria Past Medical History per HPI Medical History: angina, colitis, congestive heart failure, coronary artery disease, diabetes, GERD, GI bleed, hypertension, hypothyroid, peptic ulcer disease, urinary tract infection Past Surgical History Past Surgical Hx: angioplasty, coronary bypass surgery, endoscopy, other Social History Alcohol Use: rarely Smoking Status: Former smoker Drug Use: none Exam/Review of Systems Vital Signs Vitals Vital Signs Date Time Temp Pulse Resp B/P Pulse Ox O2 Delivery O2 Flow Rate FiO2 09/21/16 14:25 95 18 98 Nasal Cannula 2.0 09/21/16 12:06 98.0 96/47 09/19/16 17:32 21 Intake and Output 09/20/16 09/20/16 09/21/16 15:00 23:00 07:00 Intake Total 850 ml 370 ml Output Total 0 ml Balance 850 ml 370 ml Exam Constitutional: alert, oriented Psych: no complaints Head: atraumatic, normocephalic Eyes: nl conjunctiva Neck: jvd (8cm), supple Respiratory: crackles/rales, No clear to auscultation Cardiovascular: regular rate and rhythm, systolic murmur (2/6 EJNNA), No edema Gastrointestinal: non-tender, soft Neurological: nl mental status, nl speech Skin: No rash or lesions Results EKG: sinus, no ST changes, peaked TWs on admission Result Diagram: 09/21/16 0657 09/21/16 1047 Results 24 hrs Laboratory Tests Test 09/20/16 17:05 09/20/16 20:56 09/21/16 06:57 09/21/16 08:27 Bedside Glucose 117 127 160 White Blood Count 13.1 H Red Blood Count 3.22 L Hemoglobin 9.7 L Hematocrit 29.8 L Mean Corpuscular Volume 92.5 Mean Corpuscular Hemoglobin 30.1 Mean Corpuscular Hemoglobin Concent 32.6 Red Cell Distribution Width 14.7 H Platelet Count 287 Mean Platelet Volume 9.4 Neutrophils % 91.2 H Lymphocytes % 6.7 L Monocytes % 0.6 Eosinophils % 0.2 Basophils % 0.2 Nucleated Red Blood Cells % 0.0 Neutrophils # 11.9 H Lymphocytes # 0.9 Monocytes # 0.1 L Eosinophils # 0.0 Basophils # 0.0 Nucleated Red Blood Cells # 0.0 Sodium Level 137 Potassium Level 7.3 *H Chloride Level 98 Carbon Dioxide Level 23 Anion Gap 23 H Blood Urea Nitrogen 103 #H Creatinine 10.17 #H Glucose Level 144 # Calcium Level 9.2 Total Bilirubin 0.0 L Direct Bilirubin 0.00 Indirect Bilirubin 0.0 Aspartate Amino Transf (AST/SGOT) 14 L Alanine Aminotransferase (ALT/SGPT) 27 Alkaline Phosphatase 51 Total Protein 6.5 Albumin 3.8 Globulin 2.70 Albumin/Globulin Ratio 1.40 Test 09/21/16 10:47 09/21/16 11:52 09/21/16 14:09 Potassium Level 6.0 H Vancomycin Level Trough 15.9 Bedside Glucose 215 203 Medications Medications Current Medications Docusate Sodium (Colace) 100 mg Q12 PO Last administered on 09/21/16 08:29; Admin Dose 100 MG; Start 09/19/16 at 21:00 Minoxidil (Loniten) 5 mg BID PO Last administered on 09/20/16 08:50; Admin Dose 5 MG; Start 09/19/16 at 21:00 Multivit/Ca Carb/ B Cmplx/FA/Prenat (Katlyn-Michael) 1 tab DAILY PO Last administered on 09/21/16 08:29; Admin Dose 1 TAB; Start 09/19/16 at 19:00 Nifedipine (Procardia Xl) 30 mg BID PO Last administered on 09/20/16 21:24; Admin Dose 30 MG; Start 09/19/16 at 21:00 Pantoprazole (Protonix Tab) 40 mg DAILY@06 PO Last administered on 09/21/16 05 :20; Admin Dose 40 MG; Start 09/20/16 at 06:00 Senna (Senokot) 1 tab DAILY PRN PO CONSTIPATION; Start 09/19/16 at 19:00 Tamsulosin HCl (Flomax) 0.4 mg HS PO Last administered on 09/20/16 21:23; Admin Dose 0.4 MG; Start 09/19/16 at 21:00 Tiotropium [place] (Spiriva) 1 inh DAILY INH Last administered on 09/21/16 08: 51; Admin Dose 1 INH; Start 09/20/16 at 09:00 Prednisolone (Prelone) 15 mg DAILY PO Last administered on 09/21/16 08:29; Admin Dose 15 MG; Start 09/20/16 at 09:00 Salmeterol Xinafoate/ Fluticasone (Advair 250/50 Diskus) 1 inh BID INH Last administered on 09/21/16 08:33; Admin Dose 1 INH; Start 09/19/16 at 21:00 Carvedilol (Coreg) 12.5 mg BID PO Last administered on 09/20/16 08:51; Admin Dose 12.5 MG; Start 09/19/16 at 21:00 Ondansetron HCl (Zofran Inj) 4 mg Q6H PRN IV NAUSEA AND/OR VOMITING; Start 01/26 at 20:00 Acetaminophen (Tylenol Tab) 650 mg Q6H PRN PO PAIN &/OR FEVER; Start 09/19/16 at 20:00 Clonidine (Catapres) 0.1 mg TID PO Last administered on 09/21/16 14:08; Admin Dose 0.1 MG; Start 09/19/16 at 21:00 Insulin Glargine (Lantus) 8 unit DAILY@20 SC ; Start 09/20/16 at 20:00 Miscellaneous Information 1 ea NOTE XX ; Start 09/20/16 at 01:00 Glucose (Glutose) 15 gm Q15M PRN PO DECREASED GLUCOSE; Start 09/20/16 at 01:00 Glucose (Glutose) 22.5 gm Q15M PRN PO DECREASED GLUCOSE; Start 09/20/16 at 01: 00 Dextrose (D50w Syringe) 25 ml Q15M PRN IV DECREASED GLUCOSE; Start 09/20/16 at 01:00 Dextrose (D50w Syringe) 50 ml Q15M PRN IV DECREASED GLUCOSE; Start 09/20/16 at 01:00 Glucagon (Glucagen) 1 mg Q15M PRN IM DECREASED GLUCOSE; Start 09/20/16 at 01:00 Glucose (Glutose) 15 gm Q15M PRN BUCCAL DECREASED GLUCOSE; Start 09/20/16 at 01 :00 Methylprednisolone Sodium Succinate (Solu-Medrol) 30 mg ONCE IV ; Start at 21:00; Stop 09/21/16 at 21:01 Aspirin (Aspirin) 81 mg DAILY PO ; Start 09/21/16 at 16:00; Status UNV JODEE DOBSON Sep 21, 2016 16:05
[2016-09-21] MEDS: ASPIRIN 81 MG TAB PO SCH (17:26)
[2016-09-21 17:30] LABS: MAGNESIUM 1.9 mg/dl (1.7-2.5); POTASSIUM 4.2 mmol/L (3.5-5.1)
[2016-09-21] MEDS ORDERED: METHYLPREDNISOLONE 40 MG INJ IV SCH (21:00)
[2016-09-21] MEDS: TAMSULOSIN (SR) 0.4 MG CAP PO SCH (21:01)
[2016-09-21] MEDS: INSULIN GLARGINE [LANtus] 3 ML PEN SC SCH (21:04)
--- NOTE | 2016-09-21 21:04 | PN ---
Date/Time of Note Date/Time of Note DATE: 09/21/16 TIME: 20:57 Assessment/Plan VTE Prophylaxis VTE Prophylaxis Intervention: ambulation, anti-embolic stocking VTE Contraindication Reason: peripheral vascular disease Lines/Catheters IV Catheter Type (from Nrsg): Peripheral IV Central line still needed: No Urinary Cath still in place: No Reason Cath still needed: urinary retention Assessment/Plan Assessment/Plan 1. Pulmonary edema - resolved. Acute on chronic respiratory insufficiency, on bronchodilatations and 02. 2. Hematuria.tapering down steroids now 30 mg . 3. Sepsis: Gram positive culture positive in one bottle, vanco - level is pending; other cultures are pending. 4. End-stage renal disease-on HD-Discuses with .Chronic metabolic acidosis and hypokalemia with hypocapnia. 5. Anxiety, depression with dissatisfaction 6. Diabetes type 2-better controlled 7. Osteoarthritis. 8. Anemia of chronic disease-02/08 9. Status post multiple units of packed red blood cell transfusions-now getting more.. 10. Weight loss-more than 60lb in 11 months. 11. Hypertension-better controlled. 12. Memory impairment. 13. Major depression. 14. Back pain. 15. Benign prostatic hypertrophy. 16. S/P left forearm a/v shunt placement for dialysis-functions well , not mature yet. 17. S/P right Jugular vein cannulation for dialysis-no signs of infection. 18. Hypoxemia with hypercapnia(Hx of) on home 02 and BIPAP. 19. Anxiety; borderline personality; 20. Excessive thirst. 21. Constipation 22.Chest pain during HD today frequently(s/p 2 angiographies and stenting)cardiology consult. 23.Terminally ill with inability to decide DNR status. He refused to answer. Macario I received a modesto from RN that he agreed for DNR and DNI. 24.Grief reaction; his 2 days ago. Subjective 24 Hr Interval Summary Free Text/Dictation Breathing improved. i am now wheezing. I am having a dry cough. Grief reaction after the of the . Constitutional: poor po, requiring O2, No chills, No diaphoresis, No disoriented, No febrile, No improved, No no complaints, No other, No requiring IVF ENT: congestion, pain, No bleeding, No discharge, No dysphagia, No no complaints, No other, No sore throat Cardiovascular: lightheadedness, orthopenea, palpitations, paroxysmal nocturnal dyspnea, No chest pain, No edema, No no complaints, No other Genitourinary: bleeding, dysuria, No discharge, No flank pain, No hematuria, No no complaints, No other Musculoskeletal: back pain, neck pain, No bone/joint pain, No no complaints, No other, No restricted range of motion , No swelling Skin: pruritis Psychological: anxiety, depression, No confusion, No nl mood/affect, No no complaints, No other, No suicidal Exam/Review of Systems Vital Signs Vitals Vital Signs Date Time Temp Pulse Resp B/P Pulse Ox O2 Delivery O2 Flow Rate FiO2 09/21/16 20:41 98.5 83 19 119/56 98 09/21/16 20:13 Nasal Cannula 2.0 09/19/16 17:32 21 Intake and Output 09/20/16 09/20/16 09/21/16 15:00 23:00 07:00 Intake Total 850 ml 370 ml Output Total 0 ml Balance 850 ml 370 ml Exam Constitutional: alert, distress, oriented Psych: anxiety, depression, No confusion, No nl mood/affect, No no complaints, No other, No suicidal Head: atraumatic, normocephalic, No hematomas, No lacerations, No other Eyes: EOMI, PERRL, nl lids, No fundi, disc, No icteric, No nl conjunctiva, No nl sclera, No other ENMT: nl nasal mucosa & septum, No intubated, No mucosa pink and moist, No nl external ears & nose, No nl lips & teeth, No other, No tympanic membranes Neck: bruits, jvd, nuchal rigidity, supple, No masses, No non-tender, No other, No thyromegaly Respiratory: clear to auscultation, diminished breath sounds, No congested cough, No crackles/rales, No intercostal retraction, No labored breathing, No normal air movement, No other, No respirations, No tactile fremitus, No wheezing Cardiovascular: bruits, irregular rhythm, systolic murmur Gastrointestinal: bowel sounds, hepatomegaly, soft, No ascites, No distended, No firm, No mass, No nl liver, spleen, No non- tender, No other, No rebound or guarding, No splenomegaly, No surgical scars, No tender Musculoskeletal: joint tenderness, muscle tone, muscle weakness, nl extremities to inspection, other (AV shunt functions.) Extremities: calf tenderness Neurological: [employer] II-XII intact, No DTR's symmetric, No confused, No focal weakness, No lethargic, No nl mental status, No nl speech, No nl strength, No numbness, No other, No reflexes , No unresponsive Skin: No diaphoresis, No ecchymosis, No laceration, No nl turgor, No other, No puncture, No rash or lesions Lymph: No enlarged, No nl lymph nodes, No nontender, No other Results Result Diagram: 09/21/16 0657 09/21/16 1700 Results 24 hrs Laboratory Tests Test 09/21/16 06:57 09/21/16 08:27 09/21/16 10:47 09/21/16 11:52 White Blood Count 13.1 H Red Blood Count 3.22 L Hemoglobin 9.7 L Hematocrit 29.8 L Mean Corpuscular Volume 92.5 Mean Corpuscular Hemoglobin 30.1 Mean Corpuscular Hemoglobin Concent 32.6 Red Cell Distribution Width 14.7 H Platelet Count 287 Mean Platelet Volume 9.4 Neutrophils % 91.2 H Lymphocytes % 6.7 L Monocytes % 0.6 Eosinophils % 0.2 Basophils % 0.2 Nucleated Red Blood Cells % 0.0 Neutrophils # 11.9 H Lymphocytes # 0.9 Monocytes # 0.1 L Eosinophils # 0.0 Basophils # 0.0 Nucleated Red Blood Cells # 0.0 Sodium Level 137 Potassium Level 7.3 *H 6.0 H Chloride Level 98 Carbon Dioxide Level 23 Anion Gap 23 H Blood Urea Nitrogen 103 #H Creatinine 10.17 #H Glucose Level 144 # Calcium Level 9.2 Total Bilirubin 0.0 L Direct Bilirubin 0.00 Indirect Bilirubin 0.0 Aspartate Amino Transf (AST/SGOT) 14 L Alanine Aminotransferase (ALT/SGPT) 27 Alkaline Phosphatase 51 Total Protein 6.5 Albumin 3.8 Globulin 2.70 Albumin/Globulin Ratio 1.40 Bedside Glucose 160 215 Vancomycin Level Trough 15.9 Test 09/21/16 14:09 09/21/16 16:59 09/21/16 17:00 Bedside Glucose 203 154 Sodium Level 140 Potassium Level 4.2 Chloride Level 97 Carbon Dioxide Level 30 Anion Gap 17 H Magnesium Level 1.9 Medications Medications Current Medications Docusate Sodium (Colace) 100 mg Q12 PO Last administered on 09/21/16 08:29; Admin Dose 100 MG; Start 09/19/16 at 21:00 Minoxidil (Loniten) 5 mg BID PO Last administered on 09/20/16 08:50; Admin Dose 5 MG; Start 09/19/16 at 21:00 Multivit/Ca Carb/ B Cmplx/FA/Prenat (Katlyn-Michael) 1 tab DAILY PO Last administered on 09/21/16 08:29; Admin Dose 1 TAB; Start 09/19/16 at 19:00 Nifedipine (Procardia Xl) 30 mg BID PO Last administered on 09/20/16 21:24; Admin Dose 30 MG; Start 09/19/16 at 21:00 Pantoprazole (Protonix Tab) 40 mg DAILY@06 PO Last administered on 09/21/16 05 :20; Admin Dose 40 MG; Start 09/20/16 at 06:00 Senna (Senokot) 1 tab DAILY PRN PO CONSTIPATION; Start 09/19/16 at 19:00 Tamsulosin HCl (Flomax) 0.4 mg HS PO Last administered on 09/20/16 21:23; Admin Dose 0.4 MG; Start 09/19/16 at 21:00 Tiotropium [place] (Spiriva) 1 inh DAILY INH Last administered on 09/21/16 08: 51; Admin Dose 1 INH; Start 09/20/16 at 09:00 Prednisolone (Prelone) 15 mg DAILY PO Last administered on 09/21/16 08:29; Admin Dose 15 MG; Start 09/20/16 at 09:00 Salmeterol Xinafoate/ Fluticasone (Advair 250/50 Diskus) 1 inh BID INH Last administered on 09/21/16 08:33; Admin Dose 1 INH; Start 09/19/16 at 21:00 Carvedilol (Coreg) 12.5 mg BID PO Last administered on 09/20/16 08:51; Admin Dose 12.5 MG; Start 09/19/16 at 21:00 Ondansetron HCl (Zofran Inj) 4 mg Q6H PRN IV NAUSEA AND/OR VOMITING; Start 01/26 at 20:00 Acetaminophen (Tylenol Tab) 650 mg Q6H PRN PO PAIN &/OR FEVER; Start 09/19/16 at 20:00 Clonidine (Catapres) 0.1 mg TID PO Last administered on 09/21/16 14:08; Admin Dose 0.1 MG; Start 09/19/16 at 21:00 Insulin Glargine (Lantus) 8 unit DAILY@20 SC ; Start 09/20/16 at 20:00 Miscellaneous Information 1 ea NOTE XX ; Start 09/20/16 at 01:00 Glucose (Glutose) 15 gm Q15M PRN PO DECREASED GLUCOSE; Start 09/20/16 at 01:00 Glucose (Glutose) 22.5 gm Q15M PRN PO DECREASED GLUCOSE; Start 09/20/16 at 01: 00 Dextrose (D50w Syringe) 25 ml Q15M PRN IV DECREASED GLUCOSE; Start 09/20/16 at 01:00 Dextrose (D50w Syringe) 50 ml Q15M PRN IV DECREASED GLUCOSE; Start 09/20/16 at 01:00 Glucagon (Glucagen) 1 mg Q15M PRN IM DECREASED GLUCOSE; Start 09/20/16 at 01:00 Glucose (Glutose) 15 gm Q15M PRN BUCCAL DECREASED GLUCOSE; Start 09/20/16 at 01 :00 Methylprednisolone Sodium Succinate (Solu-Medrol) 30 mg ONCE IV ; Start at 21:00; Stop 09/21/16 at 21:01 Aspirin (Aspirin) 81 mg DAILY PO Last administered on 09/21/16 17:26; Admin Dose 81 MG; Start 09/21/16 at 16:00 HINA CASTILLO MD Sep 21, 2016 21:04
--- NOTE | 2016-09-21 22:16 | CONS ---
Date/Time of Note Date/Time of Note DATE: 09/21/16 TIME: 22:15 Consultation Date/Type/Reason Admit Date/Time Sep 19, 2016 at 18:51 Initial Consult Date 09/21/16 Type of Consultation: [facility] Referring Provider: HINA CASTILLO MD Exam/Review of Systems Vital Signs Vitals Vital Signs Date Time Temp Pulse Resp B/P Pulse Ox O2 Delivery O2 Flow Rate FiO2 09/21/16 20:41 98.5 83 19 119/56 98 09/21/16 20:13 Nasal Cannula 2.0 09/19/16 17:32 21 Intake and Output 09/20/16 09/20/16 09/21/16 15:00 23:00 07:00 Intake Total 850 ml 370 ml Output Total 0 ml Balance 850 ml 370 ml Results Result Diagram: 09/21/16 0657 09/21/16 1700 Results 24 hrs Laboratory Tests Test 09/21/16 06:57 09/21/16 08:27 09/21/16 10:47 09/21/16 11:52 White Blood Count 13.1 H Red Blood Count 3.22 L Hemoglobin 9.7 L Hematocrit 29.8 L Mean Corpuscular Volume 92.5 Mean Corpuscular Hemoglobin 30.1 Mean Corpuscular Hemoglobin Concent 32.6 Red Cell Distribution Width 14.7 H Platelet Count 287 Mean Platelet Volume 9.4 Neutrophils % 91.2 H Lymphocytes % 6.7 L Monocytes % 0.6 Eosinophils % 0.2 Basophils % 0.2 Nucleated Red Blood Cells % 0.0 Neutrophils # 11.9 H Lymphocytes # 0.9 Monocytes # 0.1 L Eosinophils # 0.0 Basophils # 0.0 Nucleated Red Blood Cells # 0.0 Sodium Level 137 Potassium Level 7.3 *H 6.0 H Chloride Level 98 Carbon Dioxide Level 23 Anion Gap 23 H Blood Urea Nitrogen 103 #H Creatinine 10.17 #H Glucose Level 144 # Calcium Level 9.2 Total Bilirubin 0.0 L Direct Bilirubin 0.00 Indirect Bilirubin 0.0 Aspartate Amino Transf (AST/SGOT) 14 L Alanine Aminotransferase (ALT/SGPT) 27 Alkaline Phosphatase 51 Total Protein 6.5 Albumin 3.8 Globulin 2.70 Albumin/Globulin Ratio 1.40 Bedside Glucose 160 215 Vancomycin Level Trough 15.9 Test 09/21/16 14:09 09/21/16 16:59 09/21/16 17:00 09/21/16 20:56 Bedside Glucose 203 154 184 Sodium Level 140 Potassium Level 4.2 Chloride Level 97 Carbon Dioxide Level 30 Anion Gap 17 H Magnesium Level 1.9 Medications Medications Current Medications Docusate Sodium (Colace) 100 mg Q12 PO Last administered on 09/21/16 21:01; Admin Dose 100 MG; Start 09/19/16 at 21:00 Minoxidil (Loniten) 5 mg BID PO Last administered on 09/20/16 08:50; Admin Dose 5 MG; Start 09/19/16 at 21:00 Multivit/Ca Carb/ B Cmplx/FA/Prenat (Katlyn-Michael) 1 tab DAILY PO Last administered on 09/21/16 08:29; Admin Dose 1 TAB; Start 09/19/16 at 19:00 Nifedipine (Procardia Xl) 30 mg BID PO Last administered on 09/20/16 21:24; Admin Dose 30 MG; Start 09/19/16 at 21:00 Pantoprazole (Protonix Tab) 40 mg DAILY@06 PO Last administered on 09/21/16 05 :20; Admin Dose 40 MG; Start 09/20/16 at 06:00 Senna (Senokot) 1 tab DAILY PRN PO CONSTIPATION; Start 09/19/16 at 19:00 Tamsulosin HCl (Flomax) 0.4 mg HS PO Last administered on 09/21/16 21:01; Admin Dose 0.4 MG; Start 09/19/16 at 21:00 Tiotropium [place] (Spiriva) 1 inh DAILY INH Last administered on 09/21/16 08: 51; Admin Dose 1 INH; Start 09/20/16 at 09:00 Prednisolone (Prelone) 15 mg DAILY PO Last administered on 09/21/16 08:29; Admin Dose 15 MG; Start 09/20/16 at 09:00 Salmeterol Xinafoate/ Fluticasone (Advair 250/50 Diskus) 1 inh BID INH Last administered on 09/21/16 20:59; Admin Dose 1 INH; Start 09/19/16 at 21:00 Carvedilol (Coreg) 12.5 mg BID PO Last administered on 09/20/16 08:51; Admin Dose 12.5 MG; Start 09/19/16 at 21:00 Ondansetron HCl (Zofran Inj) 4 mg Q6H PRN IV NAUSEA AND/OR VOMITING; Start 01/26 at 20:00 Acetaminophen (Tylenol Tab) 650 mg Q6H PRN PO PAIN &/OR FEVER; Start 09/19/16 at 20:00 Clonidine (Catapres) 0.1 mg TID PO Last administered on 09/21/16 14:08; Admin Dose 0.1 MG; Start 09/19/16 at 21:00 Insulin Glargine (Lantus) 8 unit DAILY@20 SC Last administered on 09/21/16 21: 04; Admin Dose 8 UNIT; Start 09/20/16 at 20:00 Miscellaneous Information 1 ea NOTE XX ; Start 09/20/16 at 01:00 Glucose (Glutose) 15 gm Q15M PRN PO DECREASED GLUCOSE; Start 09/20/16 at 01:00 Glucose (Glutose) 22.5 gm Q15M PRN PO DECREASED GLUCOSE; Start 09/20/16 at 01: 00 Dextrose (D50w Syringe) 25 ml Q15M PRN IV DECREASED GLUCOSE; Start 09/20/16 at 01:00 Dextrose (D50w Syringe) 50 ml Q15M PRN IV DECREASED GLUCOSE; Start 09/20/16 at 01:00 Glucagon (Glucagen) 1 mg Q15M PRN IM DECREASED GLUCOSE; Start 09/20/16 at 01:00 Glucose (Glutose) 15 gm Q15M PRN BUCCAL DECREASED GLUCOSE; Start 09/20/16 at 01 :00 Aspirin (Aspirin) 81 mg DAILY PO Last administered on 09/21/16 17:26; Admin Dose 81 MG; Start 09/21/16 at 16:00 ANDRE SMITH MD Sep 21, 2016 22:16
--- NOTE | 2016-09-21 22:21 | CONS ---
Date/Time of Note Date/Time of Note DATE: 09/21/16 TIME: 22:16 Consultation Date/Type/Reason Admit Date/Time Sep 19, 2016 at 18:51 Constitutional: poor po, requiring O2, No chills, No diaphoresis, No disoriented, No febrile, No improved, No no complaints, No other, No requiring IVF Eyes: redness, visual change, No discharge, No no complaints, No other, No pain ENT: congestion, pain, No bleeding, No discharge, No dysphagia, No no complaints, No other, No sore throat Respiratory: No shortness of breath Cardiovascular: lightheadedness, orthopenea, palpitations, paroxysmal nocturnal dyspnea, No chest pain, No edema, No no complaints, No other Gastrointestinal: no complaints Genitourinary: bleeding, dysuria, No discharge, No flank pain, No hematuria, No no complaints, No other Musculoskeletal: back pain, neck pain, No bone/joint pain, No no complaints, No other, No restricted range of motion , No swelling Skin: pruritis Neurologic: confusion, dizziness, headache, No focal-weakness, No no complaints, No other, No seizure, No syncope Lymphatic: No adenopathy, No lymphadema, No no complaints, No other, No tender nodes Psychological: anxiety, depression, No confusion, No nl mood/affect, No no complaints, No other, No suicidal Immunologic: pruritis, rhinitis, urticaria Past Medical History Medical History: angina, colitis, congestive heart failure, coronary artery disease, diabetes, GERD, GI bleed, hypertension, hypothyroid, peptic ulcer disease, urinary tract infection Past Surgical History Past Surgical Hx: angioplasty, coronary bypass surgery, endoscopy, other Social History Alcohol Use: rarely Smoking Status: Former smoker Drug Use: none Exam/Review of Systems Vital Signs Vitals Vital Signs Date Time Temp Pulse Resp B/P Pulse Ox O2 Delivery O2 Flow Rate FiO2 09/21/16 20:41 98.5 83 19 119/56 98 09/21/16 20:13 Nasal Cannula 2.0 09/19/16 17:32 21 Intake and Output 09/20/16 09/20/16 09/21/16 15:00 23:00 07:00 Intake Total 850 ml 370 ml Output Total 0 ml Balance 850 ml 370 ml Results Result Diagram: 09/21/16 0657 6/12/17 1700 Results 24 hrs Laboratory Tests Test 09/21/16 06:57 09/21/16 08:27 09/21/16 10:47 09/21/16 11:52 White Blood Count 13.1 H Red Blood Count 3.22 L Hemoglobin 9.7 L Hematocrit 29.8 L Mean Corpuscular Volume 92.5 Mean Corpuscular Hemoglobin 30.1 Mean Corpuscular Hemoglobin Concent 32.6 Red Cell Distribution Width 14.7 H Platelet Count 287 Mean Platelet Volume 9.4 Neutrophils % 91.2 H Lymphocytes % 6.7 L Monocytes % 0.6 Eosinophils % 0.2 Basophils % 0.2 Nucleated Red Blood Cells % 0.0 Neutrophils # 11.9 H Lymphocytes # 0.9 Monocytes # 0.1 L Eosinophils # 0.0 Basophils # 0.0 Nucleated Red Blood Cells # 0.0 Sodium Level 137 Potassium Level 7.3 *H 6.0 H Chloride Level 98 Carbon Dioxide Level 23 Anion Gap 23 H Blood Urea Nitrogen 103 #H Creatinine 10.17 #H Glucose Level 144 # Calcium Level 9.2 Total Bilirubin 0.0 L Direct Bilirubin 0.00 Indirect Bilirubin 0.0 Aspartate Amino Transf (AST/SGOT) 14 L Alanine Aminotransferase (ALT/SGPT) 27 Alkaline Phosphatase 51 Total Protein 6.5 Albumin 3.8 Globulin 2.70 Albumin/Globulin Ratio 1.40 Bedside Glucose 160 215 Vancomycin Level Trough 15.9 Test 09/21/16 14:09 09/21/16 16:59 09/21/16 17:00 09/21/16 20:56 Bedside Glucose 203 154 184 Sodium Level 140 Potassium Level 4.2 Chloride Level 97 Carbon Dioxide Level 30 Anion Gap 17 H Magnesium Level 1.9 Medications Medications Current Medications Docusate Sodium (Colace) 100 mg Q12 PO Last administered on 09/21/16 21:01; Admin Dose 100 MG; Start 09/19/16 at 21:00 Minoxidil (Loniten) 5 mg BID PO Last administered on 09/20/16 08:50; Admin Dose 5 MG; Start 09/19/16 at 21:00 Multivit/Ca Carb/ B Cmplx/FA/Prenat (Katlyn-Michael) 1 tab DAILY PO Last administered on 09/21/16 08:29; Admin Dose 1 TAB; Start 09/19/16 at 19:00 Nifedipine (Procardia Xl) 30 mg BID PO Last administered on 09/20/16 21:24; Admin Dose 30 MG; Start 09/19/16 at 21:00 Pantoprazole (Protonix Tab) 40 mg DAILY@06 PO Last administered on 09/21/16 05 :20; Admin Dose 40 MG; Start 09/20/16 at 06:00 Senna (Senokot) 1 tab DAILY PRN PO CONSTIPATION; Start 09/19/16 at 19:00 Tamsulosin HCl (Flomax) 0.4 mg HS PO Last administered on 09/21/16 21:01; Admin Dose 0.4 MG; Start 09/19/16 at 21:00 Tiotropium [place] (Spiriva) 1 inh DAILY INH Last administered on 09/21/16 08: 51; Admin Dose 1 INH; Start 09/20/16 at 09:00 Prednisolone (Prelone) 15 mg DAILY PO Last administered on 09/21/16 08:29; Admin Dose 15 MG; Start 09/20/16 at 09:00 Salmeterol Xinafoate/ Fluticasone (Advair 250/50 Diskus) 1 inh BID INH Last administered on 09/21/16 20:59; Admin Dose 1 INH; Start 09/19/16 at 21:00 Carvedilol (Coreg) 12.5 mg BID PO Last administered on 09/20/16 08:51; Admin Dose 12.5 MG; Start 09/19/16 at 21:00 Ondansetron HCl (Zofran Inj) 4 mg Q6H PRN IV NAUSEA AND/OR VOMITING; Start 01/26 at 20:00 Acetaminophen (Tylenol Tab) 650 mg Q6H PRN PO PAIN &/OR FEVER; Start 09/19/16 at 20:00 Clonidine (Catapres) 0.1 mg TID PO Last administered on 09/21/16 14:08; Admin Dose 0.1 MG; Start 09/19/16 at 21:00 Insulin Glargine (Lantus) 8 unit DAILY@20 SC Last administered on 09/21/16 21: 04; Admin Dose 8 UNIT; Start 09/20/16 at 20:00 Miscellaneous Information 1 ea NOTE XX ; Start 09/20/16 at 01:00 Glucose (Glutose) 15 gm Q15M PRN PO DECREASED GLUCOSE; Start 09/20/16 at 01:00 Glucose (Glutose) 22.5 gm Q15M PRN PO DECREASED GLUCOSE; Start 09/20/16 at 01: 00 Dextrose (D50w Syringe) 25 ml Q15M PRN IV DECREASED GLUCOSE; Start 09/20/16 at 01:00 Dextrose (D50w Syringe) 50 ml Q15M PRN IV DECREASED GLUCOSE; Start 09/20/16 at 01:00 Glucagon (Glucagen) 1 mg Q15M PRN IM DECREASED GLUCOSE; Start 09/20/16 at 01:00 Glucose (Glutose) 15 gm Q15M PRN BUCCAL DECREASED GLUCOSE; Start 09/20/16 at 01 :00 Aspirin (Aspirin) 81 mg DAILY PO Last administered on 09/21/16t 17:26; Admin Dose 81 MG; Start 09/21/16 at 16:00 ANDRE SMITH MD Sep 21, 2016 22:21
[2016-09-22] VITALS (18 sets, daily range): BP systolic 104–167; BP diastolic 52–72; PULSE 61–87; RESP 18–19
[2016-09-22] MEDS: ALBUTEROL 0.083% (NEB) 2.5 MG/3 ML AMP NEB SCH ×3 (00:39→15:23)
[2016-09-22] MEDS: IPRATROPIUM (NEB) 0.5 MG/2.5 ML AMP HHN SCH ×3 (00:40→15:23)
--- NOTE | 2016-09-22 02:17 | RADRPT ---
PROCEDURE: CT abdomen and pelvis with. contrast. CLINICAL INDICATION: Hematuria. TECHNIQUE: Noncontrast CT examination of the abdomen and pelvis, with axial, sagittal and coronal reformatted images. CTDI: 10.61 mGy and DLP: 595.53 mGy-cm. COMPARISON: None. FINDINGS: CT abdomen: Hyperinflation of COPD. Extensive changes of emphysema and bullous changes at the bilateral lung bas es. Changes of bronchiectasis. The heart size is large, with partially visualized pericardial effu whitney measuring up to about 8 mm in thickness. Small hiatal hernia. The liver is normal in size and density without focal mass or intrahepatic biliary dilatation. The spleen is normal in size and homogeneous in density. The stomach is partially collapsed, but is aurea ssly unremarkable. The pancreas as visualized is normal. The gallbladder and biliary tree are unre markable and there is no evidence for biliary dilatation. The adrenal glands are symmetric and norm al. Bilateral renal cysts measure up to about 33 mm in diameter. Otherwise, the kidneys are symmet rically unremarkable as well. No renal calculus or obstructive uropathy or mass lesion is seen. The aorta is of normal caliber. Aortic vascular calcifications are present. There is no retroperit call lymphadenopathy. The yoanna hepatis region is clear. The bowel and mesentery, as visualized, are equally unremarkable. CT pelvis: The small bowel loops situated within the pelvis are unremarkable. The urinary bladder is decompress ed and cannot be evaluated. The pelvic organs are otherwise normal. The pelvic sidewalls and inguin al regions are clear. The sigmoid colon and rectum are all unremarkable. No mass, lymphadenopathy, or free fluid is seen. No acute inflammation is seen. The appendix is unremarkable. The surrounding osseous structures are remarkable for mild degenerative spondylosis of the spine. N o osteolytic or osteoblastic lesion is detected. IMPRESSION: 1. Extensive changes of emphysema and bullous changes at lung bases, with bronchiectasis. 2. Hyperinflation of COPD. 3. Mild cardiomegaly with mild pericardial effusion. 4. No obstructive uropathy. 5. Renal cysts measure up to about 33 mm in the bilateral kidneys. 6. The urinary bladder is decompressed and cannot be evaluated. RPTAT: [facility] Freddy Lopez Physician Date Time Electronically viewed and signed by Freddy Lopez Physician on 09/22/2016 02:16 RS/
[2016-09-22] MEDS: LEVOTHYROXINE 125 MCG TAB PO SCH (06:07)
[2016-09-22] MEDS: PANTOPRAZOLE (EC) 40 MG TAB PO SCH (06:07)
--- NOTE | 2016-09-22 07:59 | CONS ---
Date/Time of Note Date/Time of Note DATE: 09/22/16 TIME: 07:56 Assessment/Plan Assessment/Plan Additional Assessment/Plan 1. CKD to be dialyzed today and then to cont OP HD, T, Th, Sat 2. CHF improved and known interstitial lung disease 3. ASHD, stable 4. Can be dc after hd today if ok with IM Consultation Date/Type/Reason Admit Date/Time Sep 19, 2016 at 18:51 Type of Consultation: HEMEON Referring Provider: HINA CASTILLO MD Detailed Summary Respiratory: No cough, No shortness of breath Cardiovascular: No chest pain Gastrointestinal: no complaints Genitourinary: no complaints Exam/Review of Systems Vital Signs Vitals Vital Signs Date Time Temp Pulse Resp B/P Pulse Ox O2 Delivery O2 Flow Rate FiO2 09/22/16 05:32 82 142/64 09/22/16 04:00 98.6 19 94 09/22/16 02:38 2.0 09/22/16 00:42 Nasal Cannula 09/19/16 17:32 21 Intake and Output 09/21/16 09/21/16 09/22/16 15:00 23:00 07:00 Intake Total 400 ml 400 ml 500 ml Output Total 2400 ml 0 ml Balance -2000 ml 400 ml 500 ml Exam Neck: No jvd Respiratory: diminished breath sounds (and few rales are present bilat) Cardiovascular: regular rate and rhythm Gastrointestinal: soft Extremities: No edema Results Result Diagram: 09/21/16 0657 09/21/16 1700 Results 24 hrs Laboratory Tests Test 09/21/16 08:27 09/21/16 10:47 09/21/16 11:52 09/21/16 14:09 Bedside Glucose 160 215 203 Potassium Level 6.0 H Vancomycin Level Trough 15.9 Test 09/21/16 16:59 09/21/16 17:00 09/21/16 20:56 Bedside Glucose 154 184 Sodium Level 140 Potassium Level 4.2 Chloride Level 97 Carbon Dioxide Level 30 Anion Gap 17 H Magnesium Level 1.9 Medications Medications Current Medications Docusate Sodium (Colace) 100 mg Q12 PO Last administered on 09/21/16 21:01; Admin Dose 100 MG; Start 09/19/16 at 21:00 Minoxidil (Loniten) 5 mg BID PO Last administered on 09/20/16 08:50; Admin Dose 5 MG; Start 09/19/16 at 21:00 Multivit/Ca Carb/ B Cmplx/FA/Prenat (Katlyn-Michael) 1 tab DAILY PO Last administered on 09/21/16 08:29; Admin Dose 1 TAB; Start 09/19/16 at 19:00 Nifedipine (Procardia Xl) 30 mg BID PO Last administered on 09/20/16 21:24; Admin Dose 30 MG; Start 09/19/16 at 21:00 Pantoprazole (Protonix Tab) 40 mg DAILY@06 PO Last administered on 09/22/16 06 :07; Admin Dose 40 MG; Start 09/20/16 at 06:00 Senna (Senokot) 1 tab DAILY PRN PO CONSTIPATION; Start 09/19/16 at 19:00 Tamsulosin HCl (Flomax) 0.4 mg HS PO Last administered on 09/21/16 21:01; Admin Dose 0.4 MG; Start 09/19/16 at 21:00 Tiotropium [place] (Spiriva) 1 inh DAILY INH Last administered on 09/21/16 08: 51; Admin Dose 1 INH; Start 09/20/16 at 09:00 Prednisolone (Prelone) 15 mg DAILY PO Last administered on 09/21/16 08:29; Admin Dose 15 MG; Start 09/20/16 at 09:00 Salmeterol Xinafoate/ Fluticasone (Advair 250/50 Diskus) 1 inh BID INH Last administered on 09/21/16 20:59; Admin Dose 1 INH; Start 09/19/16 at 21:00 Carvedilol (Coreg) 12.5 mg BID PO Last administered on 09/20/16 08:51; Admin Dose 12.5 MG; Start 09/19/16 at 21:00 Ondansetron HCl (Zofran Inj) 4 mg Q6H PRN IV NAUSEA AND/OR VOMITING; Start 01/26 at 20:00 Acetaminophen (Tylenol Tab) 650 mg Q6H PRN PO PAIN &/OR FEVER; Start 09/19/16 at 20:00 Clonidine (Catapres) 0.1 mg TID PO Last administered on 09/21/16 14:08; Admin Dose 0.1 MG; Start 09/19/16 at 21:00 Insulin Glargine (Lantus) 8 unit DAILY@20 SC Last administered on 09/21/16 21: 04; Admin Dose 8 UNIT; Start 09/20/16 at 20:00 Miscellaneous Information 1 ea NOTE XX ; Start 09/20/16 at 01:00 Glucose (Glutose) 15 gm Q15M PRN PO DECREASED GLUCOSE; Start 09/20/16 at 01:00 Glucose (Glutose) 22.5 gm Q15M PRN PO DECREASED GLUCOSE; Start 09/20/16 at 01: 00 Dextrose (D50w Syringe) 25 ml Q15M PRN IV DECREASED GLUCOSE; Start 09/20/16 at 01:00 Dextrose (D50w Syringe) 50 ml Q15M PRN IV DECREASED GLUCOSE; Start 09/20/16 at 01:00 Glucagon (Glucagen) 1 mg Q15M PRN IM DECREASED GLUCOSE; Start 09/20/16 at 01:00 Glucose (Glutose) 15 gm Q15M PRN BUCCAL DECREASED GLUCOSE; Start 09/20/16 at 01 :00 Aspirin (Aspirin) 81 mg DAILY PO Last administered on 09/21/16 17:26; Admin Dose 81 MG; Start 09/21/16 at 16:00 TRUE GTZ MD Sep 22, 2016 07:59
--- NOTE | 2016-09-22 08:00 | CONS ---
Date/Time of Note Date/Time of Note DATE: 09/22/16 TIME: 07:55 Assessment/Plan Assessment/Plan Chief Complaint/Hosp Course NSVT: Occurred during HD and is likely due to electrolyte/fluid shifts. ?may be the reason he had SOB during HD on date of admission. No further episodes when not dialyzed Acute on chronic diastolic heart failure: EF normal 04/28. Mild decompensation currently but had HD x 2. Plan for one more today Gram positive bacteremia: 1/2 sets, unclear species but may be coag neg staph vs staph aureus CAD s/p PCI RCA 12/26 with repeat cath 01/25 unchanged. No chest pain ESRD on HD:TTS. Had HD 09/19 and 09/21 Hyperkalemia: multifactorial but also on valsartan HTN: on multiple meds. -will give one dose of coreg 6.25mg prior to HD today. Can resume home dose after that -continue coreg 12.5mg BID -hold amiodarone -hold valsartan due to hyperkalemia -continue clonidine, nifedipine -consider statin if no contraindication Problems: Consultation Date/Type/Reason Admit Date/Time Sep 19, 2016 at 18:51 Initial Consult Date 09/21/16 Type of Consultation: Cardiology Referring Provider: HINA CASTILLO MD 24 HR Interval Summary Free Text/Dictation No further NSVT overnight. No chest pain or SOB.Refused coreg last night. Plan is for HD this am and then discharge. His 2 days ago. Exam/Review of Systems Vital Signs Vitals Vital Signs Date Time Temp Pulse Resp B/P Pulse Ox O2 Delivery O2 Flow Rate FiO2 09/22/16 05:32 82 142/64 09/22/16 04:00 98.6 19 94 09/22/16 02:38 2.0 09/22/16 00:42 Nasal Cannula 09/19/16 17:32 21 Intake and Output 09/21/16 09/21/16 09/22/16 15:00 23:00 07:00 Intake Total 400 ml 400 ml 500 ml Output Total 2400 ml 0 ml Balance -2000 ml 400 ml 500 ml Exam Constitutional: alert, oriented Psych: no complaints Neck: No jvd Respiratory: crackles/rales, No clear to auscultation Cardiovascular: regular rate and rhythm, No edema, No systolic murmur Gastrointestinal: non-tender, soft Neurological: nl mental status, nl speech Results Result Diagram: 09/21/16 0657 09/21/16 1700 Results 24 hrs Laboratory Tests Test 09/21/16 08:27 09/21/16 10:47 09/21/16 11:52 09/21/16 14:09 Bedside Glucose 160 215 203 Potassium Level 6.0 H Vancomycin Level Trough 15.9 Test 09/21/16 16:59 09/21/16 17:00 09/21/16 20:56 Bedside Glucose 154 184 Sodium Level 140 Potassium Level 4.2 Chloride Level 97 Carbon Dioxide Level 30 Anion Gap 17 H Magnesium Level 1.9 Medications Medications Current Medications Docusate Sodium (Colace) 100 mg Q12 PO Last administered on 09/21/16 21:01; Admin Dose 100 MG; Start 09/19/16 at 21:00 Minoxidil (Loniten) 5 mg BID PO Last administered on 09/20/16 08:50; Admin Dose 5 MG; Start 09/19/16 at 21:00 Multivit/Ca Carb/ B Cmplx/FA/Prenat (Katlyn-Michael) 1 tab DAILY PO Last administered on 09/21/16 08:29; Admin Dose 1 TAB; Start 09/19/16 at 19:00 Nifedipine (Procardia Xl) 30 mg BID PO Last administered on 09/20/16 21:24; Admin Dose 30 MG; Start 09/19/16 at 21:00 Pantoprazole (Protonix Tab) 40 mg DAILY@06 PO Last administered on 09/22/16 06 :07; Admin Dose 40 MG; Start 09/20/16 at 06:00 Senna (Senokot) 1 tab DAILY PRN PO CONSTIPATION; Start 09/19/16 at 19:00 Tamsulosin HCl (Flomax) 0.4 mg HS PO Last administered on 09/21/16 21:01; Admin Dose 0.4 MG; Start 09/19/16 at 21:00 Tiotropium [place] (Spiriva) 1 inh DAILY INH Last administered on 09/21/16 08: 51; Admin Dose 1 INH; Start 09/20/16 at 09:00 Prednisolone (Prelone) 15 mg DAILY PO Last administered on 09/21/16 08:29; Admin Dose 15 MG; Start 09/20/16 at 09:00 Salmeterol Xinafoate/ Fluticasone (Advair 250/50 Diskus) 1 inh BID INH Last administered on 09/21/16 20:59; Admin Dose 1 INH; Start 09/19/16 at 21:00 Carvedilol (Coreg) 12.5 mg BID PO Last administered on 09/20/16 08:51; Admin Dose 12.5 MG; Start 09/19/16 at 21:00 Ondansetron HCl (Zofran Inj) 4 mg Q6H PRN IV NAUSEA AND/OR VOMITING; Start 01/26 at 20:00 Acetaminophen (Tylenol Tab) 650 mg Q6H PRN PO PAIN &/OR FEVER; Start 09/19/16 at 20:00 Clonidine (Catapres) 0.1 mg TID PO Last administered on 09/21/16 14:08; Admin Dose 0.1 MG; Start 09/19/16 at 21:00 Insulin Glargine (Lantus) 8 unit DAILY@20 SC Last administered on 09/21/16 21: 04; Admin Dose 8 UNIT; Start 09/20/16 at 20:00 Miscellaneous Information 1 ea NOTE XX ; Start 09/20/16 at 01:00 Glucose (Glutose) 15 gm Q15M PRN PO DECREASED GLUCOSE; Start 09/20/16 at 01:00 Glucose (Glutose) 22.5 gm Q15M PRN PO DECREASED GLUCOSE; Start 09/20/16 at 01: 00 Dextrose (D50w Syringe) 25 ml Q15M PRN IV DECREASED GLUCOSE; Start 09/20/16 at 01:00 Dextrose (D50w Syringe) 50 ml Q15M PRN IV DECREASED GLUCOSE; Start 09/20/16 at 01:00 Glucagon (Glucagen) 1 mg Q15M PRN IM DECREASED GLUCOSE; Start 09/20/16 at 01:00 Glucose (Glutose) 15 gm Q15M PRN BUCCAL DECREASED GLUCOSE; Start 09/20/16 at 01 :00 Aspirin (Aspirin) 81 mg DAILY PO Last administered on 09/21/16 17:26; Admin Dose 81 MG; Start 09/21/16 at 16:00 JODEE DOBSON Sep 22, 2016 08:00
[2016-09-22 08:03] LABS: ADD SCAN DIFF NO
[2016-09-22 08:13] LABS: BASOPHILS % 0.1 % (0.0-2.0); HEMATOCRIT 28.3 % (42.0-52.0); HEMOGLOBIN 9.1 g/dl (14.0-18.0); LYMPHOCYTES % 5.6 % (15.0-51.0); MEAN CORPUSCULAR HEMOGLOBIN 29.4 pg (29.0-33.0); MEAN CORPUSCULAR HGB CONC 32.2 g/dl (32.0-37.0); MEAN CORPUSCULAR VOLUME 91.6 fl (82.0-101.0); MEAN PLATELET VOLUME 9.3 fl (7.4-10.4); MONOCYTE # 0.8 10^3/ul (0.3-0.9); MONOCYTES % 4.3 % (0.0-11.0); NEUTROPHIL # 15.5 10^3/ul (1.6-7.5); NEUTROPHILS % 89.1 % (39.0-77.0); PLATELET COUNT 295 10^3/UL (140-415); RED BLOOD COUNT 3.09 10^6/ul (4.70-6.10); RED CELL DISTRIBUTION WIDTH 14.9 % (11.5-14.5); WHITE BLOOD COUNT 17.4 10^3/ul (4.8-10.8)
[2016-09-22] MEDS: TIOTROPIUM 18 MCG CAPSULE INHA DEV INH SCH (08:44)
[2016-09-22] MEDS: INSULIN ASPART [NOVOLOG] 3 ML PEN SC SCH ×3 (08:44→17:36)
[2016-09-22] MEDS: SALMETEROL/FLUTICASONE 250/50 INHA INH SCH (08:44)
[2016-09-22] MEDS: CALCIUM ACETATE 667 MG CAP PO SCH ×3 (08:44→17:13)
[2016-09-22] MEDS: ASPIRIN 81 MG TAB PO SCH (08:45)
[2016-09-22] MEDS: DOCUSATE SODIUM 100 MG CAP PO SCH (08:45)
[2016-09-22] MEDS: predniSOLONE (3 MG/ML) CUP PO SCH (08:45)
[2016-09-22] MEDS: MULTIVIT/CA CARB/B CMPLX/FA TAB PO SCH (08:45)
[2016-09-22] MEDS: ACCU-CHEK XX SCH ×3 (08:45→17:13)
[2016-09-22 08:48] LABS: CALCIUM 8.9 mg/dl (8.4-10.2); CREATININE 6.8 mg/dl (0.61-1.24); PHOSPHORUS 6.5 mg/dl (2.5-4.9); POTASSIUM 4.6 mmol/L (3.5-5.1)
[2016-09-22] MEDS: MINOXIDIL 2.5 MG TAB PO SCH (08:51)
[2016-09-22] MEDS: NIFEdipine (XL) 30 MG TAB PO SCH (08:51)
--- NOTE | 2016-09-22 12:38 | RADRPT ---
Echocardiogram Report Patient Name: DORI ARNDT Gender: Male Date: 1935 Study Date: 22-Sep-2016 Auto Design Checker: Bong Robertson [facility] Location: [id number] Ref. Physician: JODEE FREDERICK Quality: Good Procedures: Transthoracic echocardiogram with complete 2D, M-Mode, and doppler examination. Indications: Re-Evaluate Left Ventricular function. NSVT. 2D/M Mode Doppler Measurement Value Normal Ranges Measurement Value Normal Ranges LVIDd 2D 5.2 3.5 - 5.6 cm AV Peak Brent 1.7 m/sec LVIDs 2D 2.7 2.1 - 4.1 cm AV Peak PG 12.0 mmHg FS 2D 47.5 % LVOT Peak Brent 1.2 m/sec LVPWd 2D 1.3 0.6 - 1.1 cm LVOT Peak PG 5.0 mmHg IVSd 2D 1.2 0.6 - 1.1 cm MV E Peak Brent 1.2 m/sec IVS/LVPW 2D 1.0 MV A Peak Brent 1.3 m/sec AoR Diam 2D 2.8 2.0 - 3.7 cm MV E/A 0.9 LA/Ao 2D 2 0 - 1 MV Decel Time 162 msec EDV 2D 137.0 cm3 MV E/A 0.9 ESV 2D 19.9 cm3 LA Dimen 2D 4.4 2.3 - 4.0 cm Findings Left Ventricle: Normal left ventricular systolic function. Normal left ventricular cavity size. Mild concentric left ventricular hypertrophy. Ejection fraction is visually estimated at 65 %. Tissue Doppler/Mitral Doppler indices are consistent with impaired relaxation (Stage I diastolic dysfunction). Right Ventricle: Normal right ventricular size. Normal right ventricular systolic function. Left Atrium: There is mild enlargement of left atrium. Right Atrium: There is mild enlargement of right atrium. Mitral Valve: Normal appearance of the mitral valve. Mild mitral annular calcification. Trace mitral regurgitation. Aortic Valve: No significant aortic stenosis or insufficiency. Aortic sclerosis without stenosis. Aortic cusps appear mildly calcified. Tricuspid Valve: Normal appearance of the tricuspid valve. Unable to obtain RVSP due to minimal presence of tricuspid regurgitation. Pulmonic Valve: Pulmonic valve not well visualized. Pericardium: Normal pericardium with no significant pericardial effusion. Aorta: Normal aortic root. IVC: Normal size and normal respiratory collapse consistent with normal right atrial pressure. Conclusions 1.Normal left ventricular systolic function. Normal left ventricular cavity size. Mild concentric left ventricular hypertrophy. Ejection fraction is visually estimated at 65 %. Tissue Doppler/Mitral Doppler indices are consistent with impaired relaxation (Stage I diastolic dysfunction). 2.Aortic sclerosis without stenosis. 3.Unable to obtain RVSP due to minimal presence of tricuspid regurgitation. RA pressure is 3 mmHg. Electronically Signed By: Jodee Frederick 22-Sep-2016 12:37:51 -0700 Patient Name: DORI ARNDT Study Date: 22-Sep-[id number]
--- NOTE | 2016-09-22 13:49 | PDOCDIS ---
Discharge Instructions CONDITION Patient Condition: Guarded HOME CARE INSTRUCTIONS: Diet Instructions: Reduced SodiumSpecial Diet: renal carb controlled ACTIVITY: Activity Restrictions: Slowly Increase Activity Avoid heavy lifting Cardiac Rehab Bathing Restrictions: Shower FOLLOW UP/APPOINTMENTS Appointments Daily or every other day for dialysis. Inform . in 4 days or prn. SCHOOL/WORK RELEASE May return to School/Work with: no scool. HINA CASTILLO MD Sep 22, 2016 13:49
[2016-09-22] MEDS ORDERED: MINO2.5T16 PO (13:55)
[2016-09-22] MEDS ORDERED: ACET325T33 PO (13:55)
[2016-09-22] MEDS ORDERED: NIFE30TA2 PO (13:55)
[2016-09-22] MEDS ORDERED: CALC667C PO (13:55)
[2016-09-22] MEDS ORDERED: TIOT18CA INH (13:55)
[2016-09-22] MEDS ORDERED: ASPI81TA3 PO (13:55)
[2016-09-22] MEDS ORDERED: VALS160T20 PO (13:55)
[2016-09-22] MEDS ORDERED: ALBU2.5V3 HHN (13:55)
[2016-09-22] MEDS ORDERED: CLON-379 PO (13:55)
[2016-09-22] MEDS ORDERED: TAMS0.4C2 PO (13:55)
[2016-09-22] MEDS ORDERED: CARV12.579 PO (13:55)
[2016-09-22] MEDS ORDERED: METHYLPREDNISOLONE 40 MG INJ IV ONE (14:00)
--- NOTE | 2016-09-22 14:05 | DS ---
Date/Time of Note Date/Time of Note DATE: 09/22/16 TIME: 13:56 Discharge Summary Admission/Discharge Info Admit Date/Time Sep 19, 2016 at 18:51 Discharge Date/Time 09/22/18:00 pm. Final Diagnosis 1. Pulmonary edema due to of fluid overload. Acute on chronic respiratory insufficiency,on bronchodilatations and 02. 2. Hematuria.Was on home steroids now 5 mg qd more than 2 months. 3. Sepsis: Gram positive culture positive in one bottle, vanco trough level 15.9; second dose was ordered to be given now; other cultures are pending. 4. End-stage renal disease-on HD-Discuses with .Chronic metabolic acidosis and hypokalemia with hypocapnia-improved. Total 7 liters were taken off in 3 days. Discussed with . 5. Anxiety, depression with dissatisfaction 6. Diabetes type 2-better controlled 7. Osteoarthritis. 8. Anemia of chronic disease-H/H 07/24 9. Status post multiple units of packed red blood cell transfusions-now getting more.. 10. Weight loss-more than 60lb in 11 months. 11. Hypertension-better controlled. 12. Memory impairment. 13. Major depression. 14. Back pain. 15. Benign prostatic hypertrophy. 16. S/P left forearm a/v shunt placement for dialysis-functions well , not mature yet. 17. S/P right Jugular vein cannulation for dialysis-no signs of infection. 18. Hypoxemia with hypercapnia(Hx of) on home 02 and BIPAP. 19. Anxiety; borderline personality; 20. Excessive thirst. 21. Constipation 22.Chest pain during HD today frequently(s/p 2 angiographies and stenting)cardiology consult. 23.Terminally ill with inability to decide DNR status. He refused to answer. Macario I received a modesto from RN that he agreed for DNR and DNI. 24.Incomplete data. Patient Condition: Guarded Hx of Present Illness Severe sob with episodes of chills worse last 2 days. I received a call from the patient while he was in the paramedics car. Anxious, tense irritable with distantly audible wheezing. Hospital Course NSVT: Occurred during HD and is likely due to electrolyte/fluid shifts. ?may be the reason he had SOB during HD on date of admission. No further episodes when not dialyzed Acute on chronic diastolic heart failure: EF normal 04/28. Mild decompensation currently but had HD x 2. Plan for one more today Gram positive bacteremia: / sets, unclear species but may be coag neg staph vs staph aureus CAD s/p PCI RCA 12/26 with repeat cath 01/25 unchanged. No chest pain ESRD on HD:TTS. Had HD 09/19 and 09/21 Hyperkalemia: multifactorial but also on valsartan HTN: on multiple meds. -will give one dose of coreg 6.25mg prior to HD today. Can resume home dose after that -continue coreg 12.5mg BID -hold amiodarone -hold valsartan due to hyperkalemia -continue clonidine, nifedipine -consider statin if no contraindication Latest CT of the abdomen and pelvis: 1. Extensive changes of emphysema and bullous changes at lung bases, with bronchiectasis. 2. Hyperinflation of COPD. 3. Mild cardiomegaly with mild pericardial effusion. 4. No obstructive uropathy. 5. Renal cysts measure up to about 33 mm in the bilateral kidneys. 6. The urinary bladder is decompressed and cannot be evaluated. The cause of hematuria was not determined. THe patient refused endoscopic examination of urinary bladder for now. He decised to do that after the service of the . Home Meds Active Scripts Aspirin (Aspirin) 81 Mg Chew, 81 MG PO DAILY for 30 Days, #30 TAB Prov:HINA CASTILLO MD 09/22/16 Valsartan* (Diovan*) 160 Mg Tablet, 320 MG PO DAILY for 30 Days, #30 TAB HOLD IF SBP<110;HR Prov:HINA CASTILLO MD 09/22/16 Calcium Acetate* (Calcium Acetate*) 667 Mg Capsule, 667 MG PO WITH MEALS for 30 Days, #30 CAP Prov:HINA CASTILLO MD 09/22/16 Tiotropium [place]* (Spiriva*) 18 Mcg Cap.w.dev, 1 INH INH BID for 30 Days, #60 CAP Prov:HINA CASTILLO MD 09/22/16 Nifedipine (Procardia Xl) 30 Mg Tab.er.24, 30 MG PO BID for 30 Days, #30 TAB Prov:HINA CASTILLO MD 09/22/16 Minoxidil* (Lonitin*) 2.5 Mg Tab, 5 MG PO BID for 30 Days, #60 TAB Prov:HINA CASTILLO MD 09/22/16 Clonidine Hcl* (Clonidine Hcl*) 0.1 Mg Tab, 0.1 MG PO TID for 30 Days, #90 TAB Prov:HINA CASTILLO MD 09/22/16 Carvedilol* (Carvedilol*) 12.5 Mg Tablet, 12.5 MG PO BID for 30 Days, #60 TAB Prov:HINA CASTILLO MD 09/22/16 Albuterol Sulfate* (Albuterol Sulfate* Neb) 0.083%-3 Ml Neb, 2.5 MG HHN Q6HWA RESP THERAPY for 30 Days, #90 BLIST PACK Prov:HINA CASTILLO MD 09/22/16 Acetaminophen* (Tylenol*) 325 Mg Tablet, 650 MG PO Q6H Y for PAIN AND OR ELEVATED TEMP for 30 Days, #90 TAB Prov:HINA CASTILLO MD 09/22/16 Tamsulosin Hcl* (Tamsulosin Hcl*) 0.4 Mg Cap.er.24h, 0.4 MG PO HS for 30 Days, # 30 CAP Prov:HINA CASTILLO MD 09/22/16 Salmeterol Xina[place]-Fluticasone* (Advair*) 500/50 Diskus Inhaler, 1 INH INH BID for 30 Days, #1 CAP.EC Prov:HINA CASTILLO MD 04/28/16 Pantoprazole* (Pantoprazole*) 40 Mg Tablet.dr, 40 MG PO DAILY@06 for 30 Days, # 30 BOX Prov:HINA CASTILLO MD 04/28/16 [Ipratropium 0.02% (Neb)] 0.5 MG/2.5 ML NEBU No Conflict Check, 0.5 MG HHN Q6H RESP THERAPY for 30 Days, #90 CAP Prov:HINA CASTILLO MD 04/28/16 Reported Medications [Heparin 5000U/0.5ML] No Conflict Check, 0.5 ML SC Q12 06/02/16 Prednisolone* (Prelone*) 15 Mg/5 Ml Solution, 15 MG PO DAILY, ML 06/02/16 Multivit/Ca Carb/B Cmplx/Fa* (Katlyn-Michael*) 1 Tab Tab, 1 TAB PO DAILY, TAB 06/02/16 Insulin Aspart (Novolog) 100 Unit/1 Ml Cartridge, 0 SQ SLIDING SCALE BEFORE MEALS; 200-250=2 UNITS, 251-300=4 UNITS, 301-350=6 UNITS, 351-400=8 UNITS,>400=10 UNITS AND CALL 06/02/16 Docusate Sodium* (Docusate Sodium*) 100 Mg Capsule, 100 MG PO Q12, #60 CAP 06/02/16 Sennosides* (Senna Lax*) 8.6 Mg Tablet, 1 TAB PO DAILY Y for CONSTIPATION, TAB 01/13/16 Levalbuterol* (Xopenex* HFA) 15 Gm Inha, 2 PUFFS INH Q4H Y for WHEEZING AND SOB , INHALER 01/13/16 Levothyroxine Sodium* (Levothyroxine Sodium*) 125 Mcg Tablet, 125 MCG PO BEFORE BREAKFAST, #30 TAB 11/28/15 Follow-up Plan Continue tapering down prednisone biweekly. Pulmonary rehabilitation was ordered. Primary Care Provider Hina Castillo MD Time spent on discharge: > 30 minutes Pending Labs Laboratory Tests Test 09/21/16 14:09 09/21/16 16:59 09/21/16 17:00 09/21/16 20:56 Bedside Glucose 203mg/dL (70-220) 154mg/dL (70-220) 184mg/dL (70-220) Sodium Level 140mmol/L (135-144) Potassium Level 4.2mmol/L (3.5-5.1) Chloride Level 97mmol/L (97-110) Carbon Dioxide Level 30mmol/L (21-31) Anion Gap 17 (8-16) Magnesium Level 1.9mg/dl (1.7-2.5) Test 09/22/16 07:00 09/22/16 08:42 White Blood Count 17.410^3/ul (4.8-10.8) Red Blood Count 3.0910^6/ul (4.70-6.10) Hemoglobin 9.1g/dl (14.0-18.0) Hematocrit 28.3% (42.0-52.0) Mean Corpuscular Volume 91.6fl (82.0-101.0) Mean Corpuscular Hemoglobin 29.4pg (29.0-33.0) Mean Corpuscular Hemoglobin Concent 32.2g/dl (32.0-37.0) Red Cell Distribution Width 14.9% (11.5-14.5) Platelet Count 59843^3/UL (140-415) Mean Platelet Volume 9.3fl (7.4-10.4) Neutrophils % 89.1% (39.0-77.0) Lymphocytes % 5.6% (15.0-51.0) Monocytes % 4.3% (0.0-11.0) Eosinophils % 0.0% (0.0-7.0) Basophils % 0.1% (0.0-2.0) Nucleated Red Blood Cells % 0.0/100WBC (0.0-0.0) Neutrophils # 15.510^3/ul (1.6-7.5) Lymphocytes # 1.010^3/ul (0.8-2.9) Monocytes # 0.810^3/ul (0.3-0.9) Eosinophils # 0.010^3/ul (0.0-0.5) Basophils # 0.010^3/ul (0.0-0.1) Nucleated Red Blood Cells # 0.010^3/ul (0.0-0.0) Sodium Level 139mmol/L (135-144) Potassium Level 4.6mmol/L (3.5-5.1) Chloride Level 94mmol/L (97-110) Carbon Dioxide Level 31mmol/L (21-31) Anion Gap 19 (8-16) Blood Urea Nitrogen 74mg/dl (7-20) Creatinine 6.80mg/dl (0.61-1.24) Glucose Level 144mg/dl (70-220) Calcium Level 8.9mg/dl (8.4-10.2) Phosphorus Level 6.5mg/dl (2.5-4.9) Bedside Glucose 123mg/dL (70-220) HINA CASTILLO MD Sep 22, 2016 14:05
[2016-09-22] MEDS ORDERED: VANCOMYCIN 1 GM (PMX) 250 ML IVPB SCH (15:00)
--- NOTE | 2016-09-22 20:56 | CONS ---
Date/Time of Note Date/Time of Note DATE: 09/22/16 TIME: 11:55 vk le Consultation Date/Type/Reason Admit Date/Time Sep 19, 2016 at 18:51 Initial Consult Date 09/21/16 Type of Consultation: Cardiology Referring Provider: HINA CASTILLO MD Exam/Review of Systems Vital Signs Vitals Vital Signs Date Time Temp Pulse Resp B/P Pulse Ox O2 Delivery O2 Flow Rate FiO2 09/22/16 16:36 87 09/22/16 15:54 98.0 18 129/61 98 09/22/16 15:30 2.0 09/22/16 08:27 Nasal Cannula 09/19/16 17:32 21 Intake and Output 09/21/16 09/21/16 09/22/16 15:00 23:00 07:00 Intake Total 400 ml 400 ml 500 ml Output Total 2400 ml 0 ml Balance -2000 ml 400 ml 500 ml Results Result Diagram: 09/22/16 0700 09/22/16 0700 Results 24 hrs Laboratory Tests Test 09/21/16 20:56 09/22/16 07:00 09/22/16 08:42 09/22/16 14:12 Bedside Glucose 184 123 144 White Blood Count 17.4 #H Red Blood Count 3.09 L Hemoglobin 9.1 L Hematocrit 28.3 L Mean Corpuscular Volume 91.6 Mean Corpuscular Hemoglobin 29.4 Mean Corpuscular Hemoglobin Concent 32.2 Red Cell Distribution Width 14.9 H Platelet Count 295 Mean Platelet Volume 9.3 Neutrophils % 89.1 H Lymphocytes % 5.6 L Monocytes % 4.3 Eosinophils % 0.0 Basophils % 0.1 Nucleated Red Blood Cells % 0.0 Neutrophils # 15.5 H Lymphocytes # 1.0 Monocytes # 0.8 Eosinophils # 0.0 Basophils # 0.0 Nucleated Red Blood Cells # 0.0 Sodium Level 139 Potassium Level 4.6 Chloride Level 94 L Carbon Dioxide Level 31 Anion Gap 19 H Blood Urea Nitrogen 74 H Creatinine 6.80 #H Glucose Level 144 Calcium Level 8.9 Phosphorus Level 6.5 H Test 09/22/16 17:14 Bedside Glucose 131 ANDRE SMITH MD Sep 22, 2016 20:56
== END 2016-09-22 17:55 | disposition home health service (06) | DRG 871 ==
LOC: FTE 15:31 → MS4 18:51
PROVIDERS: ADMIT Family Medicine; ATTEND Family Medicine
PROC: 5A1D60Z (ICD-10-PCS; principal; 2016-09-19)
DX: A41.89 Other specified sepsis (principal); N18.6 End stage renal disease; I47.2 Ventricular tachycardia; I50.33 Acute on chronic diastolic (congestive) heart failure; R06.89 Other abnormalities of breathing; I13.2 Hypertensive heart and chronic kidney disease with heart failure and with stage 5 chronic kidney disease, or end stage renal disease; E11.22 Type 2 diabetes mellitus with diabetic chronic kidney disease; E87.5 Hyperkalemia; I25.10 Atherosclerotic heart disease of native coronary artery without angina pectoris; Z95.5 Presence of coronary angioplasty implant and graft; N40.0 Benign prostatic hyperplasia without lower urinary tract symptoms; F32.9 Major depressive disorder, single episode, unspecified; D63.1 Anemia in chronic kidney disease; R31.9 Hematuria, unspecified; F41.9 Anxiety disorder, unspecified; R63.4 Abnormal weight loss; R41.3 Other amnesia; F60.3 Borderline personality disorder; R63.1 Polydipsia; Z66 Do not resuscitate; K59.00 Constipation, unspecified; R07.9 Chest pain, unspecified; Z87.891 Personal history of nicotine dependence; N28.1 Cyst of kidney, acquired; Z63.4 Disappearance and death of family member; F43.20 Adjustment disorder, unspecified
CPT/HCPCS: 36415; 71010; 74176; 76700; 80048; 80051; 80053; 80202; 82962; 83605; 83735; 83880; 84100; 84132; 84484; 85025; 85610; 85730; 87040; 87081; 90935; 93005; 93306; 94640; 94664; 96374; 96375; J0692; J1720; J1815; J2920; J2930; J3370; J7510; P9047

== ENCOUNTER 2016-10-25 12:04 | Inpatient (IN) | payer MEDICARE, BC ==
[~2016-10-25] VITALS: Ht 162.6 cm; Wt 63.0 kg
[~2016-10-25 12:04] MED LIST changes: +ASPI81TA3 PO; -HEPARIN SC; -Ipratropium 0.02% (Neb) HHN; -LEVA15HF6 INH
--- NOTE | 2016-10-25 12:34 | RADRPT ---
PROCEDURE: XR Chest. CLINICAL INDICATION: 81-year-old with chest pain. TECHNIQUE: Single frontal view of the chest was obtained. COMPARISON: Chest x-ray 09/19/2016 05:31 p.m. FINDINGS: The soft tissues are normal. There are degenerative osteophytes in the thoracic spine. The heart i s enlarged. The cardiomediastinal silhouette and hilar structures are normal. The pulmonary vascula ture is increased. There are vascular calcifications in the ectatic left-sided aorta. There are michael ateral interstitial infiltrates with lucent area is noted in the right perihilar area. The right di aphragm is flattened. The right costophrenic angle is blunted. The left costophrenic angle is norm al. The bony elements are rarefied. IMPRESSION: 1. Cardiomegaly with bilateral interstitial infiltrates which may be the result of CHF/pneumonia. 2. Atherosclerosis of the aortic arch. 3. Flattening of the diaphragms with interstitial changes in the lungs and lucency in the right hil ar area. Central lobular emphysema may be present. RPTAT:AAJJ Physician Larisa Date Time Electronically viewed and signed by Physician Larisa on 10/25/2016 12:34 /
[2016-10-25 13:02] LABS: ADD SCAN DIFF NO
[2016-10-25 13:05] LABS: BASOPHILS % 0.2 % (0.0-2.0); EOSINOPHILS # 0.3 10^3/ul (0.0-0.5); EOSINOPHILS % 4.6 % (0.0-7.0); HEMATOCRIT 30.1 % (42.0-52.0); HEMOGLOBIN 9.8 g/dl (14.0-18.0); LYMPHOCYTES # 1.6 10^3/ul (0.8-2.9); LYMPHOCYTES % 27.4 % (15.0-51.0); MEAN CORPUSCULAR HEMOGLOBIN 31.7 pg (29.0-33.0); MEAN CORPUSCULAR HGB CONC 32.6 g/dl (32.0-37.0); MEAN CORPUSCULAR VOLUME 97.4 fl (82.0-101.0); MONOCYTE # 0.5 10^3/ul (0.3-0.9); MONOCYTES % 8.1 % (0.0-11.0); NEUTROPHIL # 3.5 10^3/ul (1.6-7.5); NEUTROPHILS % 59.2 % (39.0-77.0); PLATELET COUNT 138 10^3/UL (140-415); RED BLOOD COUNT 3.09 10^6/ul (4.70-6.10); RED CELL DISTRIBUTION WIDTH 16.2 % (11.5-14.5); WHITE BLOOD COUNT 5.9 10^3/ul (4.8-10.8)
[2016-10-25 13:23] LABS: INR 1.08; PARTIAL THROMBOPLASTIN TIME 31.3 Sec (25.0-35.0); PT RATIO 1.1
[2016-10-25 13:25] LABS: CALCIUM 8.6 mg/dl (8.4-10.2); CREATININE 7.14 mg/dl (0.61-1.24); POTASSIUM 4.5 mmol/L (3.5-5.1)
[2016-10-25 13:36] LABS: TROPONIN-I 0.039 ng/ml (0.00-0.12)
--- NOTE | 2016-10-25 13:54 | ERA ---
ER Documentation Chief Complaint Date/Time DATE: 10/25/16 TIME: 13:49 Chief Complaint SOB HPI This is a 81-year-old male with a history of hypertension and end-stage renal disease who receives dialysis on Wednesday, , Wednesday who did complete dialysis yesterday and presents to the emergency room today for evaluation of shortness of breath. When I evaluated this patient he was stating that he has been feeling short of breath and states that at dialysis yesterday they only removed 1-2 L of fluid and he normally removed approximately 3. The patient states that his shortness of breath is worse when he lays flat and he called 911 and came in from home for evaluation. He is denying any active chest pain at this time and denies any palpitations or diaphoresis ROS All systems reviewed and are negative except as per history of present illness. Medications Home Meds Active Scripts Aspirin (Aspirin) 81 Mg Chew, 81 MG PO DAILY for 30 Days, #30 TAB Prov:HINA CASTILLO MD 09/22/16 Valsartan* (Diovan*) 160 Mg Tablet, 320 MG PO DAILY for 30 Days, #30 TAB HOLD IF SBP<110;HR Prov:HINA CASTILLO MD 09/22/16 Calcium Acetate* (Calcium Acetate*) 667 Mg Capsule, 667 MG PO WITH MEALS for 30 Days, #30 CAP Prov:HINA CASTILLO MD 09/22/16 Tiotropium [place]* (Spiriva*) 18 Mcg Cap.w.dev, 1 INH INH BID for 30 Days, #60 CAP Prov:HINA CASTILLO MD 09/22/16 Nifedipine (Procardia Xl) 30 Mg Tab.er.24, 30 MG PO BID for 30 Days, #30 TAB Prov:HINA CASTILLO MD 09/22/16 Minoxidil* (Lonitin*) 2.5 Mg Tab, 5 MG PO BID for 30 Days, #60 TAB Prov:HINA CASTILLO MD 09/22/16 Clonidine Hcl* (Clonidine Hcl*) 0.1 Mg Tab, 0.1 MG PO TID for 30 Days, #90 TAB Prov:HINA CASTILLO MD 09/22/16 Carvedilol* (Carvedilol*) 12.5 Mg Tablet, 12.5 MG PO BID for 30 Days, #60 TAB Prov:HINA CASTILLO MD 09/22/16 Albuterol Sulfate* (Albuterol Sulfate* Neb) 0.083%-3 Ml Neb, 2.5 MG HHN Q6HWA RESP THERAPY for 30 Days, #90 BLIST PACK Prov:HINA CASTILLO MD 09/22/16 Acetaminophen* (Tylenol*) 325 Mg Tablet, 650 MG PO Q6H Y for PAIN AND OR ELEVATED TEMP for 30 Days, #90 TAB Prov:HINA CASTILLO MD 09/22/16 Tamsulosin Hcl* (Tamsulosin Hcl*) 0.4 Mg Cap.er.24h, 0.4 MG PO HS for 30 Days, # 30 CAP Prov:HINA CASTILLO MD 09/22/16 Salmeterol Xinaf-Fluticasone* (Advair*) 500/50 Diskus Inhaler, 1 INH INH BID for 30 Days, #1 CAP.EC Prov:HINA CASTILLO MD 04/28/16 Pantoprazole* (Pantoprazole*) 40 Mg Tablet.dr, 40 MG PO DAILY@06 for 30 Days, # 30 BOX Prov:HINA CASTILLO MD 04/28/16 Reported Medications Prednisolone* (Prelone*) 15 Mg/5 Ml Solution, 15 MG PO DAILY, ML 06/02/16 Multivit/Ca Carb/B Cmplx/Fa* (Katlyn-Michael*) 1 Tab Tab, 1 TAB PO DAILY, TAB 06/02/16 Insulin Aspart (Novolog) 100 Unit/1 Ml Cartridge, 0 SQ SLIDING SCALE BEFORE MEALS; 200-250=2 UNITS, 251-300=4 UNITS, 301-350=6 UNITS, 351-400=8 UNITS,>400=10 UNITS AND CALL 06/02/16 Docusate Sodium* (Docusate Sodium*) 100 Mg Capsule, 100 MG PO Q12, #60 CAP 06/02/16 Sennosides* (Senna Lax*) 8.6 Mg Tablet, 1 TAB PO DAILY Y for CONSTIPATION, TAB 01/13/16 Levothyroxine Sodium* (Levothyroxine Sodium*) 125 Mcg Tablet, 125 MCG PO BEFORE BREAKFAST, #30 TAB 11/28/15 Allergies Allergies: Coded Allergies: No Known Allergy (Unverified , 06/02/16) PMhx/Soc History of Surgery: Yes (tunnelled cath placement) Anesthesia Reaction: No Hx Neurological Disorder: No Hx Respiratory Disorders: No Hx Cardiac Disorders: Yes (HTN) Hx Psychiatric Problems: No Hx Miscellaneous Medical Probl: Yes (ESRD) Hx Alcohol Use: No Hx Substance Use: No Hx Tobacco Use: No Smoking Status: Unknown if ever smoked Physical Exam Vitals Vital Signs Date Time Temp Pulse Resp B/P Pulse Ox O2 Delivery O2 Flow Rate FiO2 10/25/16 12:43 Nasal Cannula 4 10/25/16 12:08 96.6 67 21 176/63 100 Physical Exam INITIAL VITAL SIGNS: Reviewed by me GENERAL: The patient is well developed and appropriate for usual state of health in no apparent distress HEENT: Pupils equal, round, and reactive to light. EOMI. There is no scleral icterus. NECK: C-spine is soft and supple, there is no meningismus. There is no cervical lymphadenopathy. LUNGS: Coarse breath sounds bilaterally. There are no rales, wheezes or rhonchi. HEART: Regular rate and rhythm, no murmurs, clicks, rubs or gallops. ABDOMEN: Soft, non-tender, non-distended. There are bowel sounds in all four quadrants. No rebound or guarding. EXTREMITIES: There is no peripheral cyanosis or edema. No focal swelling or erythema. NEUROLOGICAL: The patient moves all four extremities with 5/5 strength. Cranial nerves II - XII are intact. Normal gait. Alert and oriented SKIN: There is no apparent rash or petechiae. HEME/LYMPHATIC: There is no evidence of excessive bruising or lymphedema. PSYCHIATRIC: The patient does not appear anxious or depressed. Result Diagram: 10/25/16 1250 10/25/16 1250 Results 24 hrs Laboratory Tests Test 10/25/16 12:50 White Blood Count 5.910^3/ul Red Blood Count 3.0910^6/ul Hemoglobin 9.8g/dl Hematocrit 30.1% Mean Corpuscular Volume 97.4fl Mean Corpuscular Hemoglobin 31.7pg Mean Corpuscular Hemoglobin Concent 32.6g/dl Red Cell Distribution Width 16.2% Platelet Count 40009^3/UL Mean Platelet Volume 10.0fl Neutrophils % 59.2% Lymphocytes % 27.4% Monocytes % 8.1% Eosinophils % 4.6% Basophils % 0.2% Nucleated Red Blood Cells % 0.0/100WBC Neutrophils # 3.510^3/ul Lymphocytes # 1.610^3/ul Monocytes # 0.510^3/ul Eosinophils # 0.310^3/ul Basophils # 0.010^3/ul Nucleated Red Blood Cells # 0.010^3/ul Prothrombin Time 14.0Sec Prothrombin Time Ratio 1.1 INR International Normalized Ratio 1.08 Activated Partial Thromboplast Time 31.3Sec Sodium Level 141mmol/L Potassium Level 4.5mmol/L Chloride Level 92mmol/L Carbon Dioxide Level 30mmol/L Anion Gap 24 Blood Urea Nitrogen 50mg/dl Creatinine 7.14mg/dl Glucose Level 74mg/dl Calcium Level 8.6mg/dl Troponin I 0.039ng/ml B-Type Natriuretic Peptide Pending Procedures/MDM Chest X-ray 1V Interpreted by me: Soft Tissue: No acute abnormalities Bones: No acute abnormalities Mediastinum/Cardiac Silhouette/Lungs: Pulmonary edema EKG: Rate/Rhythm: First-degree AV block QRS, ST, T-waves: [No changes consistent w/ acute ischemia] Impression: First degree AV block EKG: Rate/Rhythm: First-degree AV QRS, ST, T-waves: [No changes consistent w/ acute ischemia] Impression: First-degree AV block This 81-year-old male presents to the emergency room for evaluation of shortness of breath. The patient does receive dialysis Wednesday, , and Wednesday and received dialysis yesterday however he stated that he did not take off of the normal amount of fluids. When I evaluated him he had coarse breath sounds bilaterally. He is not hypoxic and there is no need for BiPAP at this time however the patient does have mild pulmonary edema on chest x-ray. I spoke with this patient's primary care physician, Dr. Villalba who states that he agrees the patient can be admitted at this time. This patient's assembly cleaner is Dr. Fuad alonso and will be consulted. Patient will be placed on telemetry floor at this time. Departure Diagnosis: Primary Impression: Pulmonary edema Additional Impressions: Elevated brain natriuretic peptide (BNP) level Normocytic anemia End stage renal disease Condition: Stable STEVEN FARR DO Oct 25, 2016 13:54
[2016-10-25] MEDS ORDERED: ONDANSETRON 4 MG INJ IV PRN (14:00)
[2016-10-25] MEDS ORDERED: ACETAMINOPHEN 325 MG TAB PO PRN ×2 (14:00→17:00)
--- NOTE | 2016-10-25 16:53 | HP ---
Date/Time of Note Date/Time of Note DATE: 10/25/16 TIME: 16:46 Assessment/Plan VTE Prophylaxis VTE Prophylaxis Intervention: ambulation, anti-embolic stocking VTE Contraindication Reason: peripheral vascular disease Lines/Catheters IV Catheter Type (from Nrsg): Saline Lock Central line still needed: No Reason Cath still needed: urinary retention Assessment/Plan Assessment/Plan 1.Pulmonary edema. 2.Fluid overload 3.CKD on HD, last one yesterday.2. Hematuria.Was on home steroids now 8 mg qd more than 4 months. Noncompliance.Discuses with .Chronic metabolic acidosis with hypocapnia. 4.Grief reaction after the of a .Major depression with anxiety and memory impairment wit sleep disturbance. 5. Anxiety, depression with dissatisfaction 6. Diabetes type 2-better controlled 7. Osteoarthritis. 8. Anemia of chronic disease 9. Status post multiple units of packed red blood cell transfusions-now getting more.. 10. Weight loss-more than 60lb in 11 months. 11. Hypertension-better controlled. 12. Memory impairment. 13. Major depression. 14. Back pain. 15. Benign prostatic hypertrophy. 16. S/P left forearm a/v shunt placement for dialysis-functions well , not mature yet. 17. S/P right Jugular vein cannulation for dialysis-no signs of infection. 18. Hypoxemia with hypercapnia(Hx of) on home 02 and BIPAP. 19. Anxiety; borderline personality; 20. Excessive thirst. 21. Constipation 22.Chest pain during HD today frequently(s/p 2 angiographies and stenting)cardiology consult. 23.Terminally ill with inability to decide DNR status. He refused to answer. Macario Banegas received a modesto from RN that he agreed for DNR and DNI. 24.Incomplete data. Cont'd Hospitalization Reason: as above. HPI/ROS Admit Date/Time Admit Date/Time Severe sob. Sensation of suffocation. I am exhausted. ROS Subjective hx not possible: pt critical, pt critical status Constitutional: chills, diaphoresis, disoriented, fatigue, nausea, poor po, weight change, No febrile, No improved, No no complaints, No other Eyes: discharge, redness, visual change, No no complaints, No other, No pain ENT: congestion, dysphagia, sore throat, No bleeding, No discharge, No no complaints, No other, No pain Respiratory: cough, pleuritic pain, shortness of breath, wheezing, No no complaints, No other, No pain, No sputum Cardiovascular: chest pain, lightheadedness, orthopenea, palpitations, paroxysmal nocturnal dyspnea Gastrointestinal: constipation, decreased appetite, flatus, nausea, pain, passing stool, No blood, No diarrhea, No no complaints, No other, No vomiting Genitourinary: dysuria, flank pain, hematuria, No bleeding, No discharge, No no complaints, No other Musculoskeletal: back pain, bone/joint pain, neck pain, No no complaints, No other, No restricted range of motion, No swelling Skin: bruising, erythema, pruritis, rash, No laceration, No no complaints, No other, No skin lesions Neurologic: confusion, dizziness, focal-weakness, syncope, No headache, No no complaints, No other, No seizure Endocrine: dry skin, polydypsia, polyuria, temp intolerance, weight change Lymphatic: adenopathy, tender nodes Psychological: anxiety, confusion, depression Immunologic: pruritis, urticaria PMH/Family/Social Past Medical History Medical History: angina, colitis, congestive heart failure, coronary artery disease, diabetes, diverticulitis, GERD, GI bleed, high cholesterol, hypertension, hypothyroid, peptic ulcer disease, urinary tract infection Past Surgical History Past Surgical Hx: angioplasty, coronary bypass surgery, endoscopy, other Family History Significant Family History: heart disease, COPD, diabetes, hypertension, lung disease, renal disease, vascular disease, other (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 [employer].) Social History Alcohol Use: none Smoking Status: Never smoker Drug Use: none Exam/Review of Systems Vital Signs Vitals Vital Signs Date Time Temp Pulse Resp B/P Pulse Ox O2 Delivery O2 Flow Rate FiO2 10/25/16 14:55 67 22 177/61 100 Nasal Cannula 4.0 10/25/16 12:08 96.6 Exam Constitutional: alert, distress, frail, oriented, well developed, No non-verbal, No other Psych: anxiety, confusion, depression, No nl mood/affect, No no complaints, No other, No suicidal Head: atraumatic, normocephalic, No hematomas, No lacerations, No other Eyes: EOMI, PERRL, nl lids, No fundi, disc, No icteric, No nl conjunctiva, No nl sclera, No other ENMT: nl external ears & nose, tympanic membranes, No intubated, No mucosa pink and moist, No nl lips & teeth, No nl nasal mucosa & septum, No other Neck: bruits, jvd, masses, nuchal rigidity Respiratory: congested cough, crackles/rales, diminished breath sounds, intercostal retraction, labored breathing, wheezing, No clear to auscultation, No normal air movement, No other, No respirations, No tactile fremitus Cardiovascular: bruits, edema, jugular venous distention (JVD), systolic murmur , No S3, No S4, No diastolic murmur, No gallop, No irregular rhythm, No murmurs /extra sounds, No nl pulses, No other, No regular rate and rhythm, No rub Gastrointestinal: bowel sounds, distended, nl liver, spleen, soft, No ascites, No firm, No hepatomegaly, No mass, No non-tender, No other, No rebound or guarding, No splenomegaly, No surgical scars, No tender Genitourinary - Male: CVA tenderness, nl penis, nl scrotum, No discharge, No other Genitourinary - Female: No CMT, No CVA tenderness, No nl adnexae, No nl external genitalia, No other, No uterus Musculoskeletal: No joint tenderness, No muscle tone, No muscle weakness, No nl extremities to inspection, No nl gait and stance, No other, No range of motion, No spine non-tender, No swelling Extremities: calf tenderness, cyanosis, edema, tenderness, No clubbing, No normal pulses, No other, No palpable cord, No pitting pedal edema Neurological: WHEELAGE CLERK II-XII intact (hearing impairment), No DTR's symmetric, No confused, No focal weakness, No lethargic, No nl mental status, No nl speech, No nl strength, No numbness, No other, No reflexes , No unresponsive Skin: diaphoresis, ecchymosis, laceration, No nl turgor, No other, No puncture, No rash or lesions Lymph: nontender, No enlarged, No nl lymph nodes, No other Labs Result Diagram: 10/25/16 1250 10/25/16 1250 HINA CASTILLO MD Oct 25, 2016 16:52
[2016-10-25] MEDS ORDERED: SENNA TAB PO PRN (17:00)
[2016-10-25] MEDS ORDERED: predniSOLONE 5 MG TAB PO SCH (17:00)
[2016-10-25] MEDS ORDERED: DEXTROSE 50% 50 ML SYRINGE IV PRN ×2 (17:30)
[2016-10-25] MEDS ORDERED: GLUCOSE GEL 15 GRAM TUBE BUCCAL PRN (17:30)
[2016-10-25] MEDS ORDERED: GLUCAGON 1 MG INJ IM PRN (17:30)
[2016-10-25] MEDS ORDERED: GLUCOSE GEL 15 GRAM TUBE PO PRN ×2 (17:30)
[2016-10-25] MEDS: ASPIRIN 81 MG TAB PO SCH (18:00)
[2016-10-25] MEDS: INSULIN ASPART [NOVOLOG] 3 ML PEN SC SCH (18:00)
[2016-10-25] MEDS: MINOXIDIL 2.5 MG TAB PO SCH (18:56)
[2016-10-25] MEDS: CALCIUM ACETATE 667 MG CAP PO SCH (18:59)
[2016-10-25] MEDS: MULTIVIT/CA CARB/B CMPLX/FA TAB PO SCH (18:59)
[2016-10-25] MEDS: predniSOLONE 5 MG TAB PO SCH (19:00)
[2016-10-25 20:53] VITALS: PULSE 70
[2016-10-25 21:00] VITALS: Ht 162.6 cm; Wt 63.0 kg
[2016-10-25] MEDS: TAMSULOSIN (SR) 0.4 MG CAP PO SCH (21:00)
[2016-10-25] MEDS: NIFEdipine (XL) 30 MG TAB PO SCH (21:00)
[2016-10-25] MEDS: DOCUSATE SODIUM 100 MG CAP PO SCH (21:00)
[2016-10-25] MEDS: SALMETEROL/FLUTICASONE 500/50 INHA INH SCH (22:00)
[2016-10-25] MEDS: TIOTROPIUM 18 MCG CAPSULE INHA DEV INH SCH (22:00)
[2016-10-25 22:43] LABS: CREATINE KINASE < 20 IU/L (23-200)
[2016-10-25 22:53] LABS: TROPONIN-I 0.041 ng/ml (0.00-0.12)
[2016-10-25 23:48] VITALS: BP 163/72; RESP 18
[2016-10-26] VITALS (18 sets, daily range): BP systolic 112–180; BP diastolic 53–88; PULSE 67–88; RESP 16–20
[2016-10-26 01:46] LABS: TROPONIN-I 0.04 ng/ml (0.00-0.12)
[2016-10-26 01:47] LABS: CK-MB 0.62 ng/ml (0.0-2.4)
[2016-10-26] MEDS: PANTOPRAZOLE (EC) 40 MG TAB PO SCH (06:00)
[2016-10-26] MEDS: ALBUTEROL 0.083% (NEB) 2.5 MG/3 ML AMP HHN SCH ×3 (07:36→20:36)
[2016-10-26] MEDS: MINOXIDIL 2.5 MG TAB PO SCH ×2 (08:36→20:54)
[2016-10-26] MEDS: LEVOTHYROXINE 125 MCG TAB PO SCH (08:36)
[2016-10-26] MEDS: MULTIVIT/CA CARB/B CMPLX/FA TAB PO SCH (08:36)
[2016-10-26] MEDS: CALCIUM ACETATE 667 MG CAP PO SCH ×3 (08:36→17:07)
[2016-10-26] MEDS: ASPIRIN 81 MG TAB PO SCH (08:37)
[2016-10-26] MEDS: DOCUSATE SODIUM 100 MG CAP PO SCH ×2 (08:37→20:53)
[2016-10-26] MEDS: INSULIN ASPART [NOVOLOG] 3 ML PEN SC SCH ×3 (08:38→16:56)
[2016-10-26] MEDS: NIFEdipine (XL) 30 MG TAB PO SCH ×2 (08:39→20:54)
[2016-10-26] MEDS: VALSARTAN 160 MG TAB PO SCH (09:00)
--- NOTE | 2016-10-26 09:19 | PN ---
Date/Time of Note Date/Time of Note DATE: 10/26/16 TIME: 09:11 Assessment/Plan VTE Prophylaxis VTE Prophylaxis Intervention: ambulation, anti-embolic stocking VTE Contraindication Reason: peripheral vascular disease Lines/Catheters IV Catheter Type (from Nrsg): Saline Lock Central line still needed: Yes Reason Cath still needed: urinary retention Assessment/Plan Assessment/Plan 1.Abdominal pain- persists; after 8-9 days of constipation(no BM) now frequent BM's with worsening of abdominal pain intensity. BM started after Fleet enema. Diarrhea x 2 days; now again constipated. 2.Sepsis,severe with dramatic improvement-cont.abxs. 3.ARF- improving 4.Dehydration- overhydration- improving 5.Acute on chronic kidney failure-now creatinine 1.6; s/p nephrostomy tube placement. 6.S/P urostomy and urinary blader&prostate removal due to of cancer by dr. Hart- Urostomy functions very well. 7.DM type 2 better controlled 8.Lactic acidosis- improved 9.Weight loss 10.LBP 11.N/V 12.S/P lefty hip FX and ORIF- stable 13.Hx of diverticulosis and diverticulitis and peritonitis with months of abx treatments with dranage tubes in [facility]. Recurrent diverticulitis after that treated in and outpatient. 14.Weight loss 40lb/2 years 15.COPD- quit smoking 4 years ago after the surgery(1pck more than 30 years) 16.HARESH with pain 17.Hx of cva with left weakness 18.MD 19.Memory impairment 20.Anxiety d/o 21.Hx of recurrent infections 22.Anemia of chronic disease- further decline of h/h. 23.Atherosclerotic cardio-vascular disease 24.Aortic leaflet sclerosis- preserved LVEF. 25.Pyelonephritis with obstructing right ureteral stones.Presence of left urethral stones.Hx of Septic shock with hospitalization 1 year ago after uti.He passed the stone at that time. 26.Left upper extremity nonobstructic thrombus of basilic vine. 27.Adhesive disease of abdomen 28.Cardiomegaly with calcified atherosclerosis in the aorta. 29.Stable central pulmonary vascular congestion and interstitial prominence in both lungs. 30..Stable superimposed potential infiltrates in the bilateral lower lungs. 31Stable small left pleural effusion. 32.Low iron, magnesium and phosphorus. Cont'd Hospitalization Reason: as above. Subjective 24 Hr Interval Summary Free Text/Dictation SOB is getting worse. I can't breath. I am sleepy during the night . I am sleepily during daytime. Subjective hx not possible: pt critical, pt critical status Constitutional: chills, diaphoresis, disoriented, poor po, requiring O2, No febrile, No improved, No no complaints, No other, No requiring IVF Eyes: No discharge, No no complaints, No other, No pain, No redness, No visual change ENT: congestion, dysphagia, No bleeding, No discharge, No no complaints, No other, No pain, No sore throat Respiratory: cough, pleuritic pain, shortness of breath, sputum, wheezing, No no complaints, No other, No pain Cardiovascular: chest pain, No edema, No lightheadedness, No no complaints, No orthopenea, No other, No palpitations, No paroxysmal nocturnal dyspnea Gastrointestinal: constipation, decreased appetite, flatus, nausea, pain, No blood, No diarrhea, No no complaints, No other, No passing stool, No vomiting Genitourinary: dysuria, flank pain, No bleeding, No discharge, No hematuria, No no complaints, No other Musculoskeletal: back pain, bone/joint pain, neck pain, restricted range of motion, No no complaints, No other, No swelling Skin: erythema, pruritis, rash Neurologic: confusion, dizziness, headache, No focal-weakness, No no complaints, No other, No seizure, No syncope Exam/Review of Systems Vital Signs Vitals Vital Signs Date Time Temp Pulse Resp B/P Pulse Ox O2 Delivery O2 Flow Rate FiO2 10/26/16 08:06 98.1 93 19 135/58 98 10/26/16 07:37 2.0 10/25/16 22:00 Nasal Cannula Intake and Output 10/25/16 10/25/16 10/26/16 15:00 23:00 07:00 Intake Total 500 ml Output Total 3500 ml Balance -3000 ml Exam Constitutional: alert, distress, oriented, well developed, No frail, No non-verbal, No obese, No other Psych: anxiety, confusion, depression, No nl mood/affect, No no complaints, No other, No suicidal Head: atraumatic, No hematomas, No lacerations, No normocephalic, No other Eyes: EOMI, PERRL, nl lids, No fundi, disc, No icteric, No nl conjunctiva, No nl sclera, No other ENMT: No intubated, No mucosa pink and moist, No nl external ears & nose, No nl lips & teeth, No nl nasal mucosa & septum, No other, No tympanic membranes Neck: bruits, jvd, nuchal rigidity, No masses, No non-tender, No other, No supple, No thyromegaly Respiratory: congested cough, crackles/rales, diminished breath sounds, intercostal retraction, labored breathing, No clear to auscultation, No normal air movement, No other, No respirations, No tactile fremitus, No wheezing Cardiovascular: bruits, edema, irregular rhythm, jugular venous distention (JVD ), rub, systolic murmur, No S3, No S4, No diastolic murmur, No gallop, No murmurs/extra sounds, No nl pulses, No other, No regular rate and rhythm Gastrointestinal: bowel sounds, distended, rebound or guarding, No ascites, No firm, No hepatomegaly, No mass, No nl liver, spleen, No non- tender, No other, No soft, No splenomegaly, No surgical scars, No tender Genitourinary - Male: No CVA tenderness, No discharge, No nl penis, No nl scrotum, No other Musculoskeletal: joint tenderness, muscle tone, muscle weakness, No nl extremities to inspection, No nl gait and stance, No other, No range of motion, No spine non-tender, No swelling Extremities: calf tenderness, tenderness Neurological: SHAKE BACKBOARD NOTCHER II-XII intact, confused, numbness, other (Anxious, tense, in resp. disstress.) Results Result Diagram: 10/25/16 1250 10/25/16 1250 Results 24 hrs Laboratory Tests Test 10/25/16 12:50 10/25/16 19:03 10/25/16 22:07 10/26/16 00:46 White Blood Count 5.9 # Red Blood Count 3.09 L Hemoglobin 9.8 L Hematocrit 30.1 L Mean Corpuscular Volume 97.4 Mean Corpuscular Hemoglobin 31.7 Mean Corpuscular Hemoglobin Concent 32.6 Red Cell Distribution Width 16.2 H Platelet Count 138 #L Mean Platelet Volume 10.0 Neutrophils % 59.2 Lymphocytes % 27.4 Monocytes % 8.1 Eosinophils % 4.6 Basophils % 0.2 Nucleated Red Blood Cells % 0.0 Neutrophils # 3.5 Lymphocytes # 1.6 Monocytes # 0.5 Eosinophils # 0.3 Basophils # 0.0 Nucleated Red Blood Cells # 0.0 Prothrombin Time 14.0 Prothrombin Time Ratio 1.1 INR International Normalized Ratio 1.08 Activated Partial Thromboplast Time 31.3 Sodium Level 141 Potassium Level 4.5 Chloride Level 92 L Carbon Dioxide Level 30 Anion Gap 24 H Blood Urea Nitrogen 50 H Creatinine 7.14 H Glucose Level 74 Calcium Level 8.6 Troponin I 0.039 0.041 0.040 B-Type Natriuretic Peptide 84987 H Bedside Glucose 87 Creatine Kinase < 20 L 20 L Creatine Kinase Index 3.1 Creatinine Kinase MB (Mass) 0.60 0.62 Test 10/26/16 08:15 Bedside Glucose 180 Medications Medications Current Medications Acetaminophen (Tylenol Tab) 650 mg Q6H PRN PO PAIN AND OR ELEVATED TEMP; Start 10/25/16 at 17:00 Aspirin (Aspirin) 81 mg DAILY PO Last administered on 10/26/16 08:37; Admin Dose 81 MG; Start 10/25/16 at 17:00 Carvedilol (Coreg) 12.5 mg BID PO ; Start 10/25/16 at 21:00 Clonidine (Catapres) 0.1 mg TID PO Last administered on 10/26/16 08:37; Admin Dose 0.1 MG; Start 10/25/16 at 21:00 Docusate Sodium (Colace) 100 mg Q12 PO Last administered on 10/26/16 08:37; Admin Dose 100 MG; Start 10/25/16 at 21:00 Minoxidil (Loniten) 5 mg BID PO Last administered on 10/26/16 08:36; Admin Dose 5 MG; Start 10/25/16 at 21:00 Multivit/Ca Carb/ B Cmplx/FA/Prenat (Katlyn-Michael) 1 tab DAILY PO Last administered on 10/26/16 08:36; Admin Dose 1 TAB; Start 10/25/16 at 18:00 Nifedipine (Procardia Xl) 30 mg BID PO ; Start 10/25/16 at 21:00 Pantoprazole (Protonix Tab) 40 mg DAILY@06 PO ; Start 10/26/16 at 06:00 Salmeterol Xinafoate/ Fluticasone (Advair 500/50 Diskus) 1 inh BID INH Last administered on 10/25/16 22:00; Admin Dose 1 INH; Start 10/25/16 at 21:00 Senna (Senokot) 1 tab DAILY PRN PO CONSTIPATION; Start 10/25/16 at 17:00 Tamsulosin HCl (Flomax) 0.4 mg HS PO ; Start 10/25/16 at 21:00 Tiotropium [place] (Spiriva) 1 inh BID INH Last administered on 10/25/16 22:00 ; Admin Dose 1 INH; Start 10/25/16 at 21:00 Valsartan (Diovan) 320 mg DAILY PO ; Start 10/26/16 at 09:00 Miscellaneous Information 1 ea NOTE XX ; Start 10/25/16 at 17:30 Glucose (Glutose) 15 gm Q15M PRN PO DECREASED GLUCOSE; Start 10/25/16 at 17:30 Glucose (Glutose) 22.5 gm Q15M PRN PO DECREASED GLUCOSE; Start 10/25/16 at 17: 30 Dextrose (D50w Syringe) 25 ml Q15M PRN IV DECREASED GLUCOSE; Start 10/25/16 at 17:30 Dextrose (D50w Syringe) 50 ml Q15M PRN IV DECREASED GLUCOSE; Start 10/25/16 at 17:30 Glucagon (Glucagen) 1 mg Q15M PRN IM DECREASED GLUCOSE; Start 10/25/16 at 17:30 Glucose (Glutose) 15 gm Q15M PRN BUCCAL DECREASED GLUCOSE; Start 10/25/16 at 17 :30 Prednisolone (Prednisolone) 15 mg DAILY PO Last administered on 10/25/16 19:00 ; Admin Dose 15 MG; Start 10/25/16 at 18:30 Epoetin [place]ordon (Epogen (Esrd)) 10,000 units MoWeFr@17 SC ; Start 10/26/16 at 17:00 HINA CASTILLO MD Oct 26, 2016 09:18
[2016-10-26 09:22] LABS: ADD SCAN DIFF NO
[2016-10-26 09:24] LABS: BASOPHILS % 0.2 % (0.0-2.0); EOSINOPHILS % 0.2 % (0.0-7.0); HEMATOCRIT 37.8 % (42.0-52.0); LYMPHOCYTES # 0.7 10^3/ul (0.8-2.9); LYMPHOCYTES % 11.6 % (15.0-51.0); MEAN CORPUSCULAR HEMOGLOBIN 30.5 pg (29.0-33.0); MEAN CORPUSCULAR HGB CONC 31.7 g/dl (32.0-37.0); MEAN CORPUSCULAR VOLUME 96.2 fl (82.0-101.0); MEAN PLATELET VOLUME 10.5 fl (7.4-10.4); MONOCYTE # 0.3 10^3/ul (0.3-0.9); NEUTROPHIL # 5.1 10^3/ul (1.6-7.5); NEUTROPHILS % 82.5 % (39.0-77.0); PLATELET COUNT 147 10^3/UL (140-415); RED BLOOD COUNT 3.93 10^6/ul (4.70-6.10); RED CELL DISTRIBUTION WIDTH 15.9 % (11.5-14.5); WHITE BLOOD COUNT 6.2 10^3/ul (4.8-10.8)
[2016-10-26] MEDS: SALMETEROL/FLUTICASONE 500/50 INHA INH SCH ×2 (09:25→20:52)
--- NOTE | 2016-10-26 09:25 | CONS ---
Date/Time of Note Date/Time of Note DATE: 10/26/16 TIME: 09:24 Assessment/Plan Assessment/Plan Chief Complaint/Hosp Course NSVT - review of tele shows PVCs, 3-4 beat runs of NSVT, no sustained episode. does have previous hx of this as well with iHD. - cont tele monitoring - cont carvedilol, titrate as tolerated HTN- high on admission, ? pt compliance. pt refusing meds per rn - cont home regimen, coreg/valsartan/nifedipine - will need to d/w pt importance of taking medication as rx CAD - stable, trop neg - cont statin - asa 81mg daily Acute on chronic diastolic HF- difficult fluid mgmt with iHD - symptomatically improved - cont fluid removal as tolerated - bp control as above Anemia- likely from ESRD Problems: Consultation Date/Type/Reason Admit Date/Time 10/25/2016 Date of Consultation: Oct 26, 2016 Type of Consultation: Cardiology Reason for Consultation nsvt Referring Provider: HINA CASTILLO MD Hx of Present Illness Mr. Kim is a 81 y.o. 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 Pt found to have congestion with acute on chronic diastolic HF + fluid overload, plan for iHD. During iHD today pt with PVCs, NSVT 3-4 beats. Asymptomatic. Pt denies current pnd, orthopnea, edema. no chest pain/pressure currently. he denies any dizziness, lightheaded, palpitations, syncope. Constitutional: no complaints Eyes: no complaints ENT: congestion Respiratory: shortness of breath Cardiovascular: no complaints Gastrointestinal: no complaints Genitourinary: no complaints Musculoskeletal: back pain, No other, No swelling Skin: no complaints Neurologic: no complaints Psychological: depression Past Medical History SEE HPI Past Surgical History Past Surgical Hx: other (angioplasty, coronary bypass surgery, endoscopy) Family History Significant Family History: other (no early cad) Social History Alcohol Use: none Smoking Status: Never smoker Drug Use: none Exam/Review of Systems Vital Signs Vitals Vital Signs Date Time Temp Pulse Resp B/P Pulse Ox O2 Delivery O2 Flow Rate FiO2 10/26/16 08:06 98.1 93 19 135/58 98 10/26/16 07:37 2.0 10/25/16 22:00 Nasal Cannula Intake and Output 10/25/16 10/25/16 10/26/16 15:00 23:00 07:00 Intake Total 500 ml Output Total 3500 ml Balance -3000 ml Exam Constitutional: alert, oriented Psych: nl mood/affect, no complaints Head: atraumatic, normocephalic Eyes: EOMI, nl conjunctiva ENMT: nl external ears & nose, nl lips & teeth, nl nasal mucosa & septum Neck: non-tender, supple, No jvd Respiratory: crackles in bases Cardiovascular: nl pulses, regular rate and rhythm, systolic murmur, No S3, No S4, No bruits, No diastolic murmur, No irregular rhythm, No jugular venous distention (JVD) Gastrointestinal: non-tender, soft Musculoskeletal: nl extremities to inspection, nl gait and stance Extremities: normal pulses Neurological: PHARMACY RETAIL SUPPORT SPECIALIST II-XII intact, nl mental status, nl speech, nl strength Skin: nl turgor Results Result Diagram: 10/25/16 1250 10/25/16 1250 Results 24 hrs Laboratory Tests Test 10/25/16 12:50 10/25/16 19:03 10/25/16 22:07 10/26/16 00:46 White Blood Count 5.9 # Red Blood Count 3.09 L Hemoglobin 9.8 L Hematocrit 30.1 L Mean Corpuscular Volume 97.4 Mean Corpuscular Hemoglobin 31.7 Mean Corpuscular Hemoglobin Concent 32.6 Red Cell Distribution Width 16.2 H Platelet Count 138 #L Mean Platelet Volume 10.0 Neutrophils % 59.2 Lymphocytes % 27.4 Monocytes % 8.1 Eosinophils % 4.6 Basophils % 0.2 Nucleated Red Blood Cells % 0.0 Neutrophils # 3.5 Lymphocytes # 1.6 Monocytes # 0.5 Eosinophils # 0.3 Basophils # 0.0 Nucleated Red Blood Cells # 0.0 Prothrombin Time 14.0 Prothrombin Time Ratio 1.1 INR International Normalized Ratio 1.08 Activated Partial Thromboplast Time 31.3 Sodium Level 141 Potassium Level 4.5 Chloride Level 92 L Carbon Dioxide Level 30 Anion Gap 24 H Blood Urea Nitrogen 50 H Creatinine 7.14 H Glucose Level 74 Calcium Level 8.6 Troponin I 0.039 0.041 0.040 B-Type Natriuretic Peptide 30513 H Bedside Glucose 87 Creatine Kinase < 20 L 20 L Creatine Kinase Index 3.1 Creatinine Kinase MB (Mass) 0.60 0.62 Test 10/26/16 08:15 Bedside Glucose 180 Medications Medications Current Medications Acetaminophen (Tylenol Tab) 650 mg Q6H PRN PO PAIN AND OR ELEVATED TEMP; Start 10/25/16 at 17:00 Aspirin (Aspirin) 81 mg DAILY PO Last administered on 10/26/16 08:37; Admin Dose 81 MG; Start 10/25/16 at 17:00 Carvedilol (Coreg) 12.5 mg BID PO ; Start 10/25/16 at 21:00 Clonidine (Catapres) 0.1 mg TID PO Last administered on 10/26/16 08:37; Admin Dose 0.1 MG; Start 10/25/16 at 21:00 Docusate Sodium (Colace) 100 mg Q12 PO Last administered on 10/26/16 08:37; Admin Dose 100 MG; Start 10/25/16 at 21:00 Minoxidil (Loniten) 5 mg BID PO Last administered on 10/26/16 08:36; Admin Dose 5 MG; Start 10/25/16 at 21:00 Multivit/Ca Carb/ B Cmplx/FA/Prenat (Katlyn-Michael) 1 tab DAILY PO Last administered on 10/26/16 08:36; Admin Dose 1 TAB; Start 10/25/16 at 18:00 Nifedipine (Procardia Xl) 30 mg BID PO ; Start 10/25/16 at 21:00 Pantoprazole (Protonix Tab) 40 mg DAILY@06 PO ; Start 10/26/16 at 06:00 Salmeterol Xinafoate/ Fluticasone (Advair 500/50 Diskus) 1 inh BID INH Last administered on 10/25/16 22:00; Admin Dose 1 INH; Start 10/25/16 at 21:00 Senna (Senokot) 1 tab DAILY PRN PO CONSTIPATION; Start 10/25/16 at 17:00 Tamsulosin HCl (Flomax) 0.4 mg HS PO ; Start 10/25/16 at 21:00 Tiotropium [place] (Spiriva) 1 inh BID INH Last administered on 10/25/16 22:00 ; Admin Dose 1 INH; Start 10/25/16 at 21:00 Valsartan (Diovan) 320 mg DAILY PO ; Start 10/26/16 at 09:00 Miscellaneous Information 1 ea NOTE XX ; Start 10/25/16 at 17:30 Glucose (Glutose) 15 gm Q15M PRN PO DECREASED GLUCOSE; Start 10/25/16 at 17:30 Glucose (Glutose) 22.5 gm Q15M PRN PO DECREASED GLUCOSE; Start 10/25/16 at 17: 30 Dextrose (D50w Syringe) 25 ml Q15M PRN IV DECREASED GLUCOSE; Start 10/25/16 at 17:30 Dextrose (D50w Syringe) 50 ml Q15M PRN IV DECREASED GLUCOSE; Start 10/25/16 at 17:30 Glucagon (Glucagen) 1 mg Q15M PRN IM DECREASED GLUCOSE; Start 10/25/16 at 17:30 Glucose (Glutose) 15 gm Q15M PRN BUCCAL DECREASED GLUCOSE; Start 10/25/16 at 17 :30 Prednisolone (Prednisolone) 15 mg DAILY PO Last administered on 10/25/16t 19:00 ; Admin Dose 15 MG; Start 10/25/16 at 18:30 Epoetin Jordon (Epogen (Esrd)) 10,000 units MoWeFr@17 SC ; Start 10/26/16 at 17:00 Procedures Procedures cxr images reviewed bilateral interstitial infiltrates ekg:nsr, 1st degree avb primary physician note reviewed TATA CAVANAUGH Oct 26, 2016 09:25
[2016-10-26] MEDS: TIOTROPIUM 18 MCG CAPSULE INHA DEV INH SCH ×2 (09:26→20:53)
[2016-10-26] MEDS: predniSOLONE 5 MG TAB PO SCH (09:29)
[2016-10-26 09:49] LABS: ALBUMIN 5.1 g/dl (3.3-4.9); ALBUMIN/GLOBULIN RATIO 1.5; BILIRUBIN,INDIRECT 0.5 mg/dl (0-1.1); BILIRUBIN,TOTAL 0.5 mg/dl (0.2-1.3); CALCIUM 9.8 mg/dl (8.4-10.2); CREATININE 4.75 mg/dl (0.61-1.24); POTASSIUM 3.4 mmol/L (3.5-5.1); TOTAL PROTEIN 8.5 g/dl (6.1-8.1)
[2016-10-26] MEDS: AMIODARONE 200 MG TAB PO SCH (10:09)
[2016-10-26 12:24] LABS: CALCIUM 9.4 mg/dl (8.4-10.2); CREATININE 4.97 mg/dl (0.61-1.24); POTASSIUM 4.1 mmol/L (3.5-5.1)
--- NOTE | 2016-10-26 15:07 | CONS ---
Date/Time of Note Date/Time of Note DATE: 10/26/16 TIME: 15:03 Assessment/Plan Assessment/Plan Chief Complaint/Hosp Course Anemia - CHRONIC, MULTIFACTORIAL, COMPENSATED AT PRESENT +COMPONENT ACD AND IRON DEFICIENCY CONT TO MONITOR BLOOD COUNT CLOSELY OBSERVE FOR BLEEDING AND HEMOLYSIS TRANSFUSE NEEDED EPO WITH HD post EGD 08.13.16- Mild reflux esophagitis. Antral gastritis. Fundal nodular gastritis. LEUKOCYTOSIS REACTIVE MONITOR CLOSELY NOTE THAT PT IS not ON STEROIDS THROMBOCYTOPENIA- IMPROVED CONT TO MONITOR End-stage renal disease, hemodialysis dependent. Right chest Perm-A-Cath. Chronic obstructive pulmonary disease exacerbation. Tachycardia- h/o svt, nsvt HTN-. CAD - stable, s/p PCI 12/2015 with IZABELLA x 1 to RCA, no change on 01/2016 cath, small d2, managed medically Acute on chronic diastolic HF- difficult fluid mgmt with iHD Interstitial and COPD, rx with daily steroids (po) HX Acute respiratory failure HX Pneumonia Problems: Consultation Date/Type/Reason Admit Date/Time Oct 25, 2016 at 13:48 Type of Consultation: HEMEONC Reason for Consultation ANEMIA LEUKOCYTOSIS THROMBOCYTOPENIA Referring Provider: HINA CASTILLO MD 24 HR Interval Summary Free Text/Dictation PER PT - SOB is getting worse COUNT REVIEWED Exam/Review of Systems Vital Signs Vitals Vital Signs Date Time Temp Pulse Resp B/P Pulse Ox O2 Delivery O2 Flow Rate FiO2 10/26/16 13:08 2.0 10/26/16 13:08 68 20 98 10/26/16 12:38 97.8 131/63 10/25/16 22:00 Nasal Cannula Intake and Output 10/25/16 10/25/16 10/26/16 15:00 23:00 07:00 Intake Total 500 ml Output Total 3500 ml Balance -3000 ml Exam Constitutional: alert, distress, oriented, well developed, No frail, No non-verbal, No obese, No other Psych: anxiety, confusion, depression, No nl mood/affect, No no complaints, No other, No suicidal Head: atraumatic, No hematomas, No lacerations, No normocephalic, No other Eyes: EOMI, PERRL, nl lids, No fundi, disc, No icteric, No nl conjunctiva, No nl sclera, No other ENMT: No intubated, No mucosa pink and moist, No nl external ears & nose, No nl lips & teeth, No nl nasal mucosa & septum, No other, No tympanic membranes Neck: bruits, jvd, nuchal rigidity, No masses, No non-tender, No other, No supple, No thyromegaly Respiratory: congested cough, crackles/rales, diminished breath sounds, intercostal retraction, labored breathing, No clear to auscultation, No normal air movement, No other, No respirations, No tactile fremitus, No wheezing Cardiovascular: bruits, edema, irregular rhythm, jugular venous distention (JVD ), rub, systolic murmur, No S3, No S4, No diastolic murmur, No gallop, No murmurs/extra sounds, No nl pulses, No other, No regular rate and rhythm Gastrointestinal: bowel sounds, distended, rebound or guarding, No ascites, No firm, No hepatomegaly, No mass, No nl liver, spleen, No non- tender, No other, No soft, No splenomegaly, No surgical scars, No tender Genitourinary - Male: No CVA tenderness, No discharge, No nl penis, No nl scrotum, No other Musculoskeletal: joint tenderness, muscle tone, muscle weakness, No nl extremities to inspection, No nl gait and stance, No other, No range of motion, No spine non-tender, No swelling Extremities: calf tenderness, tenderness Neurological: RETAIL FIELD REPRESENTATIVE II-XII intact, confused, numbness, other (Anxious, tense, in resp. disstress.) Results Result Diagram: 10/26/16 0900 10/26/16 1140 Results 24 hrs Laboratory Tests Test 10/25/16 19:03 10/25/16 22:07 10/26/16 00:46 10/26/16 08:15 Bedside Glucose 87 180 Creatine Kinase < 20 L 20 L Creatine Kinase Index 3.1 Creatinine Kinase MB (Mass) 0.60 0.62 Troponin I 0.041 0.040 Test 10/26/16 09:00 10/26/16 11:35 10/26/16 11:40 White Blood Count 6.2 Red Blood Count 3.93 #L Hemoglobin 12.0 #L Hematocrit 37.8 #L Mean Corpuscular Volume 96.2 Mean Corpuscular Hemoglobin 30.5 Mean Corpuscular Hemoglobin Concent 31.7 L Red Cell Distribution Width 15.9 H Platelet Count 147 Mean Platelet Volume 10.5 H Neutrophils % 82.5 H Lymphocytes % 11.6 L Monocytes % 5.0 Eosinophils % 0.2 Basophils % 0.2 Nucleated Red Blood Cells % 0.0 Neutrophils # 5.1 Lymphocytes # 0.7 L Monocytes # 0.3 Eosinophils # 0.0 Basophils # 0.0 Nucleated Red Blood Cells # 0.0 Sodium Level 152 H 145 H Potassium Level 3.4 L 4.1 Chloride Level 99 97 Carbon Dioxide Level 29 30 Anion Gap 27 H 22 H Blood Urea Nitrogen 28 #H 35 H Creatinine 4.75 #H 4.97 H Glucose Level 145 # 129 Calcium Level 9.8 9.4 Total Bilirubin 0.5 Direct Bilirubin 0.00 Indirect Bilirubin 0.5 Aspartate Amino Transf (AST/SGOT) 23 Alanine Aminotransferase (ALT/SGPT) 26 Alkaline Phosphatase 78 Total Protein 8.5 H Albumin 5.1 H Globulin 3.40 H Albumin/Globulin Ratio 1.50 Bedside Glucose 127 Medications Medications Current Medications Acetaminophen (Tylenol Tab) 650 mg Q6H PRN PO PAIN AND OR ELEVATED TEMP; Start 10/25/16 at 17:00 Aspirin (Aspirin) 81 mg DAILY PO Last administered on 10/26/16 08:37; Admin Dose 81 MG; Start 10/25/16 at 17:00 Carvedilol (Coreg) 12.5 mg BID PO ; Start 10/25/16 at 21:00 Clonidine (Catapres) 0.1 mg TID PO Last administered on 10/26/16 12:15; Admin Dose 0.1 MG; Start 10/25/16 at 21:00 Docusate Sodium (Colace) 100 mg Q12 PO Last administered on 10/26/16 08:37; Admin Dose 100 MG; Start 10/25/16 at 21:00 Minoxidil (Loniten) 5 mg BID PO Last administered on 10/26/16 08:36; Admin Dose 5 MG; Start 10/25/16 at 21:00 Multivit/Ca Carb/ B Cmplx/FA/Prenat (Katlyn-Michael) 1 tab DAILY PO Last administered on 10/26/16 08:36; Admin Dose 1 TAB; Start 10/25/16 at 18:00 Nifedipine (Procardia Xl) 30 mg BID PO ; Start 10/25/16 at 21:00 Pantoprazole (Protonix Tab) 40 mg DAILY@06 PO ; Start 10/26/16 at 06:00 Salmeterol Xinafoate/ Fluticasone (Advair 500/50 Diskus) 1 inh BID INH Last administered on 10/26/16 09:25; Admin Dose 1 INH; Start 10/25/16 at 21:00 Senna (Senokot) 1 tab DAILY PRN PO CONSTIPATION; Start 10/25/16 at 17:00 Tamsulosin HCl (Flomax) 0.4 mg HS PO ; Start 10/25/16 at 21:00 Tiotropium [place] (Spiriva) 1 inh BID INH Last administered on 10/26/16 09:26 ; Admin Dose 1 INH; Start 10/25/16 at 21:00 Valsartan (Diovan) 320 mg DAILY PO ; Start 10/26/16 at 09:00 Miscellaneous Information 1 ea NOTE XX ; Start 10/25/16 at 17:30 Glucose (Glutose) 15 gm Q15M PRN PO DECREASED GLUCOSE; Start 10/25/16 at 17:30 Glucose (Glutose) 22.5 gm Q15M PRN PO DECREASED GLUCOSE; Start 10/25/16 at 17: 30 Dextrose (D50w Syringe) 25 ml Q15M PRN IV DECREASED GLUCOSE; Start 10/25/16 at 17:30 Dextrose (D50w Syringe) 50 ml Q15M PRN IV DECREASED GLUCOSE; Start 10/25/16 at 17:30 Glucagon (Glucagen) 1 mg Q15M PRN IM DECREASED GLUCOSE; Start 10/25/16 at 17:30 Glucose (Glutose) 15 gm Q15M PRN BUCCAL DECREASED GLUCOSE; Start 10/25/16 at 17 :30 Prednisolone (Prednisolone) 15 mg DAILY PO Last administered on 10/26/16 09:29 ; Admin Dose 15 MG; Start 10/25/16 at 18:30 Epoetin Jordon (Epogen (Esrd)) 10,000 units MoWeFr@17 SC ; Start 10/26/16 at 17:00 Amiodarone HCl (Cordarone) 200 mg DAILY PO Last administered on 10/26/16 10:09 ; Admin Dose 200 MG; Start 10/26/16 at 10:00 ANDRE SMITH MD Oct 26, 2016 15:07
[2016-10-26] MEDS: EPOETIN 10000 UNITS/1 ML INJ (ESRD) SC SCH (16:07)
--- NOTE | 2016-10-26 16:34 | CONS ---
Date/Time of Note Date/Time of Note DATE: 10/26/16 TIME: 16:31 Assessment/Plan Assessment/Plan Chief Complaint/Hosp Course Assessment 1. Progressive hypoxemic respiratory failure secondary to volume overload 2. End-stage renal failure on hemodialysis 3. History of coronary artery disease status post coronary artery bypass graft surgery 4. History of essential hypertension Recommendations 1. More aggressive volume removal during hemodialysis 2. Repeat chest x-ray in a.m. 3. Supplemental O2 as needed 4. Encourage ambulation 5. DVT and GI prophylaxis Problems: Consultation Date/Type/Reason Admit Date/Time Oct 25, 2016 at 13:48 Date of Consultation: Oct 26, 2016 Reason for Consultation Respiratory distress Hx of Present Illness 81-year-old gentleman seen by myself in the office with a history of end-stage renal failure on hemodialysis. He has previously been seen by myself for dyspnea which has been thought to be secondary to volume overload. He presents with several day history of increasing shortness of breath orthopnea cough but no fever no chills no chest pain or palpitations. His admission chest x-ray demonstrated significant congestive cardiac failure and pulmonary edema. Clinically on exam he has extensive bilateral rales consistent with volume overload. As above Constitutional: chills, diaphoresis, disoriented, poor po, requiring O2, No febrile, No improved, No no complaints, No other, No requiring IVF Eyes: No discharge, No no complaints, No other, No pain, No redness, No visual change ENT: congestion, dysphagia, No bleeding, No discharge, No no complaints, No other, No pain, No sore throat Respiratory: cough, pleuritic pain, shortness of breath, sputum, wheezing, No no complaints, No other, No pain Cardiovascular: chest pain, No edema, No lightheadedness, No no complaints, No orthopenea, No other, No palpitations, No paroxysmal nocturnal dyspnea Gastrointestinal: constipation, decreased appetite, flatus, nausea, pain, No blood, No diarrhea, No no complaints, No other, No passing stool, No vomiting Genitourinary: dysuria, flank pain, No bleeding, No discharge, No hematuria, No no complaints, No other Musculoskeletal: back pain, bone/joint pain, neck pain, restricted range of motion, No no complaints, No other, No swelling Skin: erythema, pruritis, rash Neurologic: confusion, dizziness, headache, No focal-weakness, No no complaints, No other, No seizure, No syncope Lymphatic: adenopathy, tender nodes Psychological: anxiety, confusion, depression, No nl mood/affect, No no complaints, No other, No suicidal Immunologic: pruritis, urticaria Past Medical History End-stage renal failure hemodialysis Coronary artery disease Hypertension hyperlipidemia Medical History: angina, colitis, congestive heart failure, coronary artery disease, diabetes, diverticulitis, GERD, GI bleed, high cholesterol, hypertension, hypothyroid, peptic ulcer disease, urinary tract infection Past Surgical History Permacath placement Coronary artery bypass graft surgery Past Surgical Hx: angioplasty, coronary bypass surgery, endoscopy, other Social History Alcohol Use: none Smoking Status: Never smoker Drug Use: none Exam/Review of Systems Vital Signs Vitals Vital Signs Date Time Temp Pulse Resp B/P Pulse Ox O2 Delivery O2 Flow Rate FiO2 10/26/16 16:10 67 10/26/16 15:56 97.8 19 114/53 99 10/26/16 13:08 2.0 10/25/16 22:00 Nasal Cannula Exam GENERAL: Elderly [place] gentleman comfortable at rest talking full complete sentences VITAL SIGNS: per chart NECK: Supple. No JVD or lymphadenopathy. CARDIAC EXAM: S1, S2. No added sounds or murmurs. CHEST: Extensive bilateral rales ABDOMEN: Soft, nontender. No guarding or rebound. EXTREMITIES: No cyanosis, clubbing or edema. NEUROLOGIC: Generalized weakness. No focal deficits. Results Result Diagram: 10/26/16 0900 10/26/16 1140 Results 24 hrs Laboratory Tests Test 10/25/16 19:03 10/25/16 22:07 10/26/16 00:46 10/26/16 08:15 Bedside Glucose 87 180 Creatine Kinase < 20 L 20 L Creatine Kinase Index 3.1 Creatinine Kinase MB (Mass) 0.60 0.62 Troponin I 0.041 0.040 Test 10/26/16 09:00 10/26/16 11:35 10/26/16 11:40 White Blood Count 6.2 Red Blood Count 3.93 #L Hemoglobin 12.0 #L Hematocrit 37.8 #L Mean Corpuscular Volume 96.2 Mean Corpuscular Hemoglobin 30.5 Mean Corpuscular Hemoglobin Concent 31.7 L Red Cell Distribution Width 15.9 H Platelet Count 147 Mean Platelet Volume 10.5 H Neutrophils % 82.5 H Lymphocytes % 11.6 L Monocytes % 5.0 Eosinophils % 0.2 Basophils % 0.2 Nucleated Red Blood Cells % 0.0 Neutrophils # 5.1 Lymphocytes # 0.7 L Monocytes # 0.3 Eosinophils # 0.0 Basophils # 0.0 Nucleated Red Blood Cells # 0.0 Sodium Level 152 H 145 H Potassium Level 3.4 L 4.1 Chloride Level 99 97 Carbon Dioxide Level 29 30 Anion Gap 27 H 22 H Blood Urea Nitrogen 28 #H 35 H Creatinine 4.75 #H 4.97 H Glucose Level 145 # 129 Calcium Level 9.8 9.4 Total Bilirubin 0.5 Direct Bilirubin 0.00 Indirect Bilirubin 0.5 Aspartate Amino Transf (AST/SGOT) 23 Alanine Aminotransferase (ALT/SGPT) 26 Alkaline Phosphatase 78 Total Protein 8.5 H Albumin 5.1 H Globulin 3.40 H Albumin/Globulin Ratio 1.50 Bedside Glucose 127 Medications Medications Current Medications Acetaminophen (Tylenol Tab) 650 mg Q6H PRN PO PAIN AND OR ELEVATED TEMP; Start 10/25/16 at 17:00 Aspirin (Aspirin) 81 mg DAILY PO Last administered on 10/26/16 08:37; Admin Dose 81 MG; Start 10/25/16 at 17:00 Carvedilol (Coreg) 12.5 mg BID PO ; Start 10/25/16 at 21:00 Clonidine (Catapres) 0.1 mg TID PO Last administered on 10/26/16 12:15; Admin Dose 0.1 MG; Start 10/25/16 at 21:00 Docusate Sodium (Colace) 100 mg Q12 PO Last administered on 10/26/16 08:37; Admin Dose 100 MG; Start 10/25/16 at 21:00 Minoxidil (Loniten) 5 mg BID PO Last administered on 10/26/16 08:36; Admin Dose 5 MG; Start 10/25/16 at 21:00 Multivit/Ca Carb/ B Cmplx/FA/Prenat (Katlyn-Michael) 1 tab DAILY PO Last administered on 10/26/16 08:36; Admin Dose 1 TAB; Start 10/25/16 at 18:00 Nifedipine (Procardia Xl) 30 mg BID PO ; Start 10/25/16 at 21:00 Pantoprazole (Protonix Tab) 40 mg DAILY@06 PO ; Start 10/26/16 at 06:00 Salmeterol Xinafoate/ Fluticasone (Advair 500/50 Diskus) 1 inh BID INH Last administered on 10/26/16 09:25; Admin Dose 1 INH; Start 10/25/16 at 21:00 Senna (Senokot) 1 tab DAILY PRN PO CONSTIPATION; Start 10/25/16 at 17:00 Tamsulosin HCl (Flomax) 0.4 mg HS PO ; Start 10/25/16 at 21:00 Tiotropium [place] (Spiriva) 1 inh BID INH Last administered on 10/26/16 09:26 ; Admin Dose 1 INH; Start 10/25/16 at 21:00 Valsartan (Diovan) 320 mg DAILY PO ; Start 10/26/16 at 09:00 Miscellaneous Information 1 ea NOTE XX ; Start 10/25/16 at 17:30 Glucose (Glutose) 15 gm Q15M PRN PO DECREASED GLUCOSE; Start 10/25/16 at 17:30 Glucose (Glutose) 22.5 gm Q15M PRN PO DECREASED GLUCOSE; Start 10/25/16 at 17: 30 Dextrose (D50w Syringe) 25 ml Q15M PRN IV DECREASED GLUCOSE; Start 10/25/16 at 17:30 Dextrose (D50w Syringe) 50 ml Q15M PRN IV DECREASED GLUCOSE; Start 10/25/16 at 17:30 Glucagon (Glucagen) 1 mg Q15M PRN IM DECREASED GLUCOSE; Start 10/25/16 at 17:30 Glucose (Glutose) 15 gm Q15M PRN BUCCAL DECREASED GLUCOSE; Start 10/25/16 at 17 :30 Prednisolone (Prednisolone) 15 mg DAILY PO Last administered on 10/26/16 09:29 ; Admin Dose 15 MG; Start 10/25/16 at 18:30 Epoetin [place] (Epogen (Esrd)) 10,000 units MoWeFr@17 SC ; Start 10/26/16 at 17:00 Amiodarone HCl (Cordarone) 200 mg DAILY PO Last administered on 10/26/16 10:09 ; Admin Dose 200 MG; Start 10/26/16 at 10:00 CARLEEN MORGAN MD, [facility] Oct 26, 2016 16:34
[2016-10-26] MEDS: TAMSULOSIN (SR) 0.4 MG CAP PO SCH (20:54)
[2016-10-27] VITALS (18 sets, daily range): BP systolic 97–144; BP diastolic 41–69; PULSE 56–80; RESP 16–20
[2016-10-27] MEDS: LEVOTHYROXINE 125 MCG TAB PO SCH (06:16)
[2016-10-27] MEDS: PANTOPRAZOLE (EC) 40 MG TAB PO SCH (06:16)
[2016-10-27] MEDS: INSULIN ASPART [NOVOLOG] 3 ML PEN SC SCH ×3 (07:30→17:30)
[2016-10-27 07:59] LABS: ADD SCAN DIFF NO
[2016-10-27] MEDS: ALBUTEROL 0.083% (NEB) 2.5 MG/3 ML AMP HHN SCH ×3 (08:00→19:16)
[2016-10-27] MEDS: CALCIUM ACETATE 667 MG CAP PO SCH ×3 (08:00→17:40)
[2016-10-27 08:08] LABS: BASOPHILS % 0.2 % (0.0-2.0); EOSINOPHILS # 0.1 10^3/ul (0.0-0.5); EOSINOPHILS % 0.8 % (0.0-7.0); HEMATOCRIT 30.3 % (42.0-52.0); HEMOGLOBIN 9.8 g/dl (14.0-18.0); LYMPHOCYTES # 1.5 10^3/ul (0.8-2.9); LYMPHOCYTES % 24.2 % (15.0-51.0); MEAN CORPUSCULAR HGB CONC 32.3 g/dl (32.0-37.0); MEAN CORPUSCULAR VOLUME 95.9 fl (82.0-101.0); MEAN PLATELET VOLUME 10.4 fl (7.4-10.4); MONOCYTE # 0.4 10^3/ul (0.3-0.9); NEUTROPHIL # 4.2 10^3/ul (1.6-7.5); NEUTROPHILS % 67.2 % (39.0-77.0); PLATELET COUNT 160 10^3/UL (140-415); RED BLOOD COUNT 3.16 10^6/ul (4.70-6.10); RED CELL DISTRIBUTION WIDTH 15.2 % (11.5-14.5); WHITE BLOOD COUNT 6.3 10^3/ul (4.8-10.8)
[2016-10-27 08:17] LABS: IRON 123 ug/dl (35-150)
--- NOTE | 2016-10-27 08:18 | PN ---
Date/Time of Note Date/Time of Note DATE: 10/27/16 TIME: 08:14 Assessment/Plan VTE Prophylaxis VTE Prophylaxis Intervention: ambulation, anti-embolic stocking VTE Contraindication Reason: peripheral vascular disease Lines/Catheters IV Catheter Type (from Nrsg): [place] [employer] [place] line still needed: No Reason Cath still needed: urinary retention Assessment/Plan Assessment/Plan 1.Pulmonary edema. 2.Fluid overload 3.CKD on HD, last one yesterday.2. Hematuria.Was on home steroids now 8 mg qd more than 4 months. Noncompliance.Discuses with .Chronic metabolic acidosis with hypocapnia. 4.Grief reaction after the of a .Major depression with anxiety and memory impairment wit sleep disturbance. 5. Anxiety, depression with dissatisfaction 6. Diabetes type 2-better controlled 7. Osteoarthritis. 8. Anemia of chronic disease 9. Status post multiple units of packed red blood cell transfusions-now getting more.. 10. Weight loss-more than 60lb in 11 months. 11. Hypertension-better controlled. 12. Memory impairment. 13. Major depression. 14. Back pain. 15. Benign prostatic hypertrophy. 16. S/P left forearm a/v shunt placement for dialysis-functions well , not mature yet. 17. S/P right Jugular vein cannulation for dialysis-no signs of infection. 18. Hypoxemia with hypercapnia(Hx of) on home 02 and BIPAP. 19. Anxiety; borderline personality; 20. Excessive thirst. 21. Constipation 22.Chest pain during HD today frequently(s/p 2 angiographies and stenting)cardiology consult. 23.Terminally ill with inability to decide DNR status. He refused to answer. Macario Banegas received a modesto from RN that he agreed for DNR and DNI. 24.Incomplete data. Cont'd Hospitalization Reason: as above. Subjective 24 Hr Interval Summary Free Text/Dictation I am less in sob.I feel better. I am getting dizzy when I get up. Subjective hx not possible: pt critical Constitutional: chills, No diaphoresis, No disoriented, No febrile, No improved, No no complaints, No other, No poor po, No requiring IVF, No requiring O2 ENT: dysphagia, sore throat, No bleeding, No congestion, No discharge, No no complaints, No other, No pain Respiratory: cough, pleuritic pain, shortness of breath, wheezing, No no complaints, No other, No pain, No sputum Cardiovascular: chest pain, lightheadedness, paroxysmal nocturnal dyspnea, No edema, No no complaints, No orthopenea, No other, No palpitations Gastrointestinal: constipation, decreased appetite, flatus, pain, passing stool , No blood, No diarrhea, No nausea, No no complaints, No other, No vomiting Genitourinary: bleeding (sometimes grossly bloddy according to patient.), discharge, dysuria Musculoskeletal: back pain, bone/joint pain, neck pain, No no complaints, No other, No restricted range of motion, No swelling Skin: bruising, pruritis, rash, skin lesions, No erythema, No laceration, No no complaints, No other Neurologic: confusion, dizziness, headache, No focal-weakness, No no complaints, No other, No seizure, No syncope Psychological: anxiety, confusion, depression, No nl mood/affect, No no complaints, No other, No suicidal Exam/Review of Systems Vital Signs Vitals Vital Signs Date Time Temp Pulse Resp B/P Pulse Ox O2 Delivery O2 Flow Rate FiO2 10/27/16 08:05 60 10/27/16 08:04 2.0 10/27/16 07:42 Nasal Cannula 10/27/16 04:16 97.8 16 144/60 100 Intake and Output 10/26/16 10/26/16 10/27/16 15:00 23:00 07:00 Intake Total 1000 ml 300 ml Balance 1000 ml 300 ml Exam Constitutional: alert, distress, frail, oriented, No non-verbal, No obese, No other, No well developed Psych: anxiety, confusion, depression, No nl mood/affect, No no complaints, No other, No suicidal Head: atraumatic, No hematomas, No lacerations, No normocephalic, No other Eyes: EOMI, PERRL, nl lids, No fundi, disc, No icteric, No nl conjunctiva, No nl sclera, No other ENMT: nl nasal mucosa & septum, tympanic membranes, No intubated, No mucosa pink and moist, No nl external ears & nose, No nl lips & teeth, No other Neck: bruits, jvd, nuchal rigidity, thyromegaly, No masses, No non-tender, No other, No supple Respiratory: congested cough, diminished breath sounds, intercostal retraction , No clear to auscultation, No crackles/rales, No labored breathing, No normal air movement, No other, No respirations, No tactile fremitus, No wheezing Cardiovascular: bruits, murmurs/extra sounds, systolic murmur, No S3, No S4, No diastolic murmur, No edema, No gallop, No irregular rhythm, No jugular venous distention (JVD), No nl pulses, No other, No regular rate and rhythm, No rub Gastrointestinal: distended, nl liver, spleen, soft, No ascites, No bowel sounds, No firm, No hepatomegaly, No mass, No non-tender , No other, No rebound or guarding, No splenomegaly, No surgical scars, No tender Genitourinary - Male: nl penis, nl scrotum Musculoskeletal: joint tenderness, muscle tone, muscle weakness, No nl extremities to inspection, No nl gait and stance, No other, No range of motion, No spine non-tender, No swelling Extremities: calf tenderness, tenderness Neurological: [employer] II-XII intact (very anxious and tense, blamish, dissatisfied with the ideas to restructure whole health care system.), confused, lethargic, nl strength (decreased ), numbness Skin: diaphoresis, ecchymosis, laceration, No nl turgor, No other, No puncture, No rash or lesions Results Result Diagram: 10/26/16 0900 10/26/16 1140 Results 24 hrs Laboratory Tests Test 10/26/16 08:15 10/26/16 09:00 10/26/16 11:35 10/26/16 11:40 Bedside Glucose 180 127 White Blood Count 6.2 Red Blood Count 3.93 #L Hemoglobin 12.0 #L Hematocrit 37.8 #L Mean Corpuscular Volume 96.2 Mean Corpuscular Hemoglobin 30.5 Mean Corpuscular Hemoglobin Concent 31.7 L Red Cell Distribution Width 15.9 H Platelet Count 147 Mean Platelet Volume 10.5 H Neutrophils % 82.5 H Lymphocytes % 11.6 L Monocytes % 5.0 Eosinophils % 0.2 Basophils % 0.2 Nucleated Red Blood Cells % 0.0 Neutrophils # 5.1 Lymphocytes # 0.7 L Monocytes # 0.3 Eosinophils # 0.0 Basophils # 0.0 Nucleated Red Blood Cells # 0.0 Sodium Level 152 H 145 H Potassium Level 3.4 L 4.1 Chloride Level 99 97 Carbon Dioxide Level 29 30 Anion Gap 27 H 22 H Blood Urea Nitrogen 28 #H 35 H Creatinine 4.75 #H 4.97 H Glucose Level 145 # 129 Calcium Level 9.8 9.4 Total Bilirubin 0.5 Direct Bilirubin 0.00 Indirect Bilirubin 0.5 Aspartate Amino Transf (AST/SGOT) 23 Alanine Aminotransferase (ALT/SGPT) 26 Alkaline Phosphatase 78 Total Protein 8.5 H Albumin 5.1 H Globulin 3.40 H Albumin/Globulin Ratio 1.50 Test 10/26/16 16:55 Bedside Glucose 125 Medications Medications Current Medications Acetaminophen (Tylenol Tab) 650 mg Q6H PRN PO PAIN AND OR ELEVATED TEMP; Start 10/25/16 at 17:00 Aspirin (Aspirin) 81 mg DAILY PO Last administered on 10/26/16 08:37; Admin Dose 81 MG; Start 10/25/16 at 17:00 Carvedilol (Coreg) 12.5 mg BID PO Last administered on 10/26/16 20:54; Admin Dose 12.5 MG; Start 10/25/16 at 21:00 Clonidine (Catapres) 0.1 mg TID PO Last administered on 10/26/16 20:53; Admin Dose 0.1 MG; Start 10/25/16 at 21:00 Docusate Sodium (Colace) 100 mg Q12 PO Last administered on 10/26/16 20:53; Admin Dose 100 MG; Start 10/25/16 at 21:00 Minoxidil (Loniten) 5 mg BID PO Last administered on 10/26/16 20:54; Admin Dose 5 MG; Start 10/25/16 at 21:00 Multivit/Ca Carb/ B Cmplx/FA/Prenat (Katlyn-Michael) 1 tab DAILY PO Last administered on 10/26/16 08:36; Admin Dose 1 TAB; Start 10/25/16 at 18:00 Nifedipine (Procardia Xl) 30 mg BID PO Last administered on 10/26/16 20:54; Admin Dose 30 MG; Start 10/25/16 at 21:00 Pantoprazole (Protonix Tab) 40 mg DAILY@06 PO Last administered on 10/27/16 06 :16; Admin Dose 40 MG; Start 10/26/16 at 06:00 Salmeterol Xinafoate/ Fluticasone (Advair 500/50 Diskus) 1 inh BID INH Last administered on 10/26/16 20:52; Admin Dose 1 INH; Start 10/25/16 at 21:00 Senna (Senokot) 1 tab DAILY PRN PO CONSTIPATION; Start 10/25/16 at 17:00 Tamsulosin HCl (Flomax) 0.4 mg HS PO Last administered on 10/26/16 20:54; Admin Dose 0.4 MG; Start 10/25/16 at 21:00 Tiotropium [place] (Spiriva) 1 inh BID INH Last administered on 10/26/16 20:53 ; Admin Dose 1 INH; Start 10/25/16 at 21:00 Valsartan (Diovan) 320 mg DAILY PO ; Start 10/26/16 at 09:00 Miscellaneous Information 1 ea NOTE XX ; Start 10/25/16 at 17:30 Glucose (Glutose) 15 gm Q15M PRN PO DECREASED GLUCOSE; Start 10/25/16 at 17:30 Glucose (Glutose) 22.5 gm Q15M PRN PO DECREASED GLUCOSE; Start 10/25/16 at 17: 30 Dextrose (D50w Syringe) 25 ml Q15M PRN IV DECREASED GLUCOSE; Start 10/25/16 at 17:30 Dextrose (D50w Syringe) 50 ml Q15M PRN IV DECREASED GLUCOSE; Start 10/25/16 at 17:30 Glucagon (Glucagen) 1 mg Q15M PRN IM DECREASED GLUCOSE; Start 10/25/16 at 17:30 Glucose (Glutose) 15 gm Q15M PRN BUCCAL DECREASED GLUCOSE; Start 10/25/16 at 17 :30 Prednisolone (Prednisolone) 15 mg DAILY PO Last administered on 10/26/16 09:29 ; Admin Dose 15 MG; Start 10/25/16 at 18:30 Epoetin Jordon (Epogen (Esrd)) 10,000 units MoWeFr@17 SC ; Start 10/26/16 at 17:00 Amiodarone HCl (Cordarone) 200 mg DAILY PO Last administered on 10/26/16 10:09 ; Admin Dose 200 MG; Start 10/26/16 at 10:00 HINA CASTILLO MD Oct 27, 2016 08:18
[2016-10-27 08:26] LABS: TOTAL IRON BINDING CAPACITY 154 ug/dl (241-421)
[2016-10-27] MEDS: AMIODARONE 200 MG TAB PO SCH (08:30)
[2016-10-27] MEDS: VALSARTAN 160 MG TAB PO SCH (08:30)
[2016-10-27] MEDS: NIFEdipine (XL) 30 MG TAB PO SCH ×2 (08:31→21:00)
[2016-10-27] MEDS: MINOXIDIL 2.5 MG TAB PO SCH ×2 (08:31→21:00)
--- NOTE | 2016-10-27 08:31 | CONS ---
Date/Time of Note Date/Time of Note DATE: 10/27/16 TIME: 08:30 Assessment/Plan Assessment/Plan Additional Assessment/Plan 1. CKD now on HD, wtih next HD planned on and then hopeful dc 2. CHF, resolving 3. ASHD, asx 4. Anemia, stable Consultation Date/Type/Reason Admit Date/Time Oct 25, 2016 at 13:48 Initial Consult Date 10/26/16 Type of Consultation: Cardiology Referring Provider: HINA CASTILLO MD Detailed Summary Respiratory: cough (mild and no cough) Cardiovascular: No chest pain Gastrointestinal: no complaints Genitourinary: no complaints Exam/Review of Systems Vital Signs Vitals Vital Signs Date Time Temp Pulse Resp B/P Pulse Ox O2 Delivery O2 Flow Rate FiO2 10/27/16 08:15 98.3 65 18 134/64 96 10/27/16 08:04 2.0 10/27/16 07:42 Nasal Cannula Intake and Output 10/26/16 10/26/16 10/27/16 15:00 23:00 07:00 Intake Total 1000 ml 300 ml Balance 1000 ml 300 ml Exam Neck: No jvd Respiratory: diminished breath sounds (and only a few rales) Cardiovascular: regular rate and rhythm Gastrointestinal: soft Extremities: No edema Results Result Diagram: 10/27/16 0719 10/26/16 1140 Results 24 hrs Laboratory Tests Test 10/26/16 09:00 10/26/16 11:35 10/26/16 11:40 10/26/16 16:55 White Blood Count 6.2 Red Blood Count 3.93 #L Hemoglobin 12.0 #L Hematocrit 37.8 #L Mean Corpuscular Volume 96.2 Mean Corpuscular Hemoglobin 30.5 Mean Corpuscular Hemoglobin Concent 31.7 L Red Cell Distribution Width 15.9 H Platelet Count 147 Mean Platelet Volume 10.5 H Neutrophils % 82.5 H Lymphocytes % 11.6 L Monocytes % 5.0 Eosinophils % 0.2 Basophils % 0.2 Nucleated Red Blood Cells % 0.0 Neutrophils # 5.1 Lymphocytes # 0.7 L Monocytes # 0.3 Eosinophils # 0.0 Basophils # 0.0 Nucleated Red Blood Cells # 0.0 Sodium Level 152 H 145 H Potassium Level 3.4 L 4.1 Chloride Level 99 97 Carbon Dioxide Level 29 30 Anion Gap 27 H 22 H Blood Urea Nitrogen 28 #H 35 H Creatinine 4.75 #H 4.97 H Glucose Level 145 # 129 Calcium Level 9.8 9.4 Total Bilirubin 0.5 Direct Bilirubin 0.00 Indirect Bilirubin 0.5 Aspartate Amino Transf (AST/SGOT) 23 Alanine Aminotransferase (ALT/SGPT) 26 Alkaline Phosphatase 78 Total Protein 8.5 H Albumin 5.1 H Globulin 3.40 H Albumin/Globulin Ratio 1.50 Bedside Glucose 127 125 Test 10/27/16 07:19 White Blood Count 6.3 Red Blood Count 3.16 L Hemoglobin 9.8 L Hematocrit 30.3 L Mean Corpuscular Volume 95.9 Mean Corpuscular Hemoglobin 31.0 Mean Corpuscular Hemoglobin Concent 32.3 Red Cell Distribution Width 15.2 H Platelet Count 160 Mean Platelet Volume 10.4 Neutrophils % 67.2 Lymphocytes % 24.2 Monocytes % 7.0 Eosinophils % 0.8 Basophils % 0.2 Nucleated Red Blood Cells % 0.0 Neutrophils # 4.2 Lymphocytes # 1.5 Monocytes # 0.4 Eosinophils # 0.1 Basophils # 0.0 Nucleated Red Blood Cells # 0.0 Medications Medications Current Medications Acetaminophen (Tylenol Tab) 650 mg Q6H PRN PO PAIN AND OR ELEVATED TEMP; Start 10/25/16 at 17:00 Aspirin (Aspirin) 81 mg DAILY PO Last administered on 10/26/16 08:37; Admin Dose 81 MG; Start 10/25/16 at 17:00 Carvedilol (Coreg) 12.5 mg BID PO Last administered on 10/26/16 20:54; Admin Dose 12.5 MG; Start 10/25/16 at 21:00 Clonidine (Catapres) 0.1 mg TID PO Last administered on 10/26/16 20:53; Admin Dose 0.1 MG; Start 10/25/16 at 21:00 Docusate Sodium (Colace) 100 mg Q12 PO Last administered on 10/26/16 20:53; Admin Dose 100 MG; Start 10/25/16 at 21:00 Minoxidil (Loniten) 5 mg BID PO Last administered on 10/26/16 20:54; Admin Dose 5 MG; Start 10/25/16 at 21:00 Multivit/Ca Carb/ B Cmplx/FA/Prenat (Katlyn-Michael) 1 tab DAILY PO Last administered on 10/26/16 08:36; Admin Dose 1 TAB; Start 10/25/16 at 18:00 Nifedipine (Procardia Xl) 30 mg BID PO Last administered on 10/26/16 20:54; Admin Dose 30 MG; Start 10/25/16 at 21:00 Pantoprazole (Protonix Tab) 40 mg DAILY@06 PO Last administered on 10/27/16 06 :16; Admin Dose 40 MG; Start 10/26/16 at 06:00 Salmeterol Xinafoate/ Fluticasone (Advair 500/50 Diskus) 1 inh BID INH Last administered on 10/26/16 20:52; Admin Dose 1 INH; Start 10/25/16 at 21:00 Senna (Senokot) 1 tab DAILY PRN PO CONSTIPATION; Start 10/25/16 at 17:00 Tamsulosin HCl (Flomax) 0.4 mg HS PO Last administered on 10/26/16 20:54; Admin Dose 0.4 MG; Start 10/25/16 at 21:00 Tiotropium [place] (Spiriva) 1 inh BID INH Last administered on 10/26/16 20:53 ; Admin Dose 1 INH; Start 10/25/16 at 21:00 Valsartan (Diovan) 320 mg DAILY PO ; Start 10/26/16 at 09:00 Miscellaneous Information 1 ea NOTE XX ; Start 10/25/16 at 17:30 Glucose (Glutose) 15 gm Q15M PRN PO DECREASED GLUCOSE; Start 10/25/16 at 17:30 Glucose (Glutose) 22.5 gm Q15M PRN PO DECREASED GLUCOSE; Start 10/25/16 at 17: 30 Dextrose (D50w Syringe) 25 ml Q15M PRN IV DECREASED GLUCOSE; Start 10/25/16 at 17:30 Dextrose (D50w Syringe) 50 ml Q15M PRN IV DECREASED GLUCOSE; Start 10/25/16 at 17:30 Glucagon (Glucagen) 1 mg Q15M PRN IM DECREASED GLUCOSE; Start 10/25/16 at 17:30 Glucose (Glutose) 15 gm Q15M PRN BUCCAL DECREASED GLUCOSE; Start 10/25/16 at 17 :30 Prednisolone (Prednisolone) 15 mg DAILY PO Last administered on 10/26/16 09:29 ; Admin Dose 15 MG; Start 10/25/16 at 18:30 Epoetin Jordon (Epogen (Esrd)) 10,000 units MoWeFr@17 SC ; Start 10/26/16 at 17:00 Amiodarone HCl (Cordarone) 200 mg DAILY PO Last administered on 10/26/16t 10:09 ; Admin Dose 200 MG; Start 10/26/16 at 10:00 TRUE GTZ MD Oct 27, 2016 08:31
[2016-10-27 08:40] LABS: CREATININE 7.28 mg/dl (0.61-1.24); PHOSPHORUS 5.9 mg/dl (2.5-4.9); POTASSIUM 4.6 mmol/L (3.5-5.1)
[2016-10-27] MEDS: SALMETEROL/FLUTICASONE 500/50 INHA INH SCH ×2 (11:43→21:27)
[2016-10-27] MEDS: DOCUSATE SODIUM 100 MG CAP PO SCH ×2 (11:44→21:26)
[2016-10-27] MEDS: predniSOLONE 5 MG TAB PO SCH (11:44)
[2016-10-27] MEDS: TIOTROPIUM 18 MCG CAPSULE INHA DEV INH SCH ×2 (11:44→21:27)
[2016-10-27] MEDS: ASPIRIN 81 MG TAB PO SCH (11:44)
[2016-10-27] MEDS: MULTIVIT/CA CARB/B CMPLX/FA TAB PO SCH (11:45)
--- NOTE | 2016-10-27 14:19 | RADRPT ---
PROCEDURE: XR Chest 1 View. CLINICAL INDICATION: Shortness of breath. TECHNIQUE: AP view of the chest was obtained. COMPARISON: September 19, 2016 FINDINGS: The heart size is within normal limits. Calcified atherosclerosis is noted in the aorta. Chronic mi ld interstitial prominence is seen in both lungs. Blunting of the bilateral costophrenic angles is observed. No consolidations are identified. No pneumothorax is seen. Osseous structures are intact . IMPRESSION: Calcified atherosclerosis in the aorta. Blunting of the bilateral costophrenic angles that may reflect scarring or small pleural effusions. Chronic mild interstitial prominence in both lungs. RPTAT: AA .Gerard Martinez MD, MD Date Time Electronically viewed and signed by .Gerard Martinez MD, on 10/27/2016 14:19 .P/
--- NOTE | 2016-10-27 15:31 | CONS ---
Date/Time of Note Date/Time of Note DATE: 10/27/16 TIME: 15:28 Consult Date/Type/Reason Admit Date/Time Oct 25, 2016 at 13:48 Initial Consult Date 10/26/16 Type of Consultation: Pulmonary Ordering Provider: HINA CASTILLO MD Subjective Breathing a little better today Objective Vital Signs Date Time Temp Pulse Resp B/P Pulse Ox O2 Delivery O2 Flow Rate FiO2 10/27/16 13:21 2.0 10/27/16 13:21 65 20 97 Nasal Cannula 10/27/16 11:50 98.1 128/62 Intake and Output 10/26/16 10/26/16 10/27/16 15:00 23:00 07:00 Intake Total 1000 ml 300 ml Balance 1000 ml 300 ml Exam GENERAL: Elderly [place] gentleman comfortable at rest talking full complete sentences VITAL SIGNS: per chart NECK: Supple. No JVD or lymphadenopathy. CARDIAC EXAM: S1, S2. No added sounds or murmurs. CHEST: Extensive bilateral rales ABDOMEN: Soft, nontender. No guarding or rebound. EXTREMITIES: No cyanosis, clubbing or edema. NEUROLOGIC: Generalized weakness. No focal deficits. Results/Medications Result Diagram: 10/27/1671810/27/16 0719 Results 24 hrs Laboratory Tests Test 10/26/16 16:55 10/27/16 07:19 10/27/16 08:28 10/27/16 11:42 Bedside Glucose 125 157 121 White Blood Count 6.3 Red Blood Count 3.16 L Hemoglobin 9.8 L Hematocrit 30.3 L Mean Corpuscular Volume 95.9 Mean Corpuscular Hemoglobin 31.0 Mean Corpuscular Hemoglobin Concent 32.3 Red Cell Distribution Width 15.2 H Platelet Count 160 Mean Platelet Volume 10.4 Neutrophils % 67.2 Lymphocytes % 24.2 Monocytes % 7.0 Eosinophils % 0.8 Basophils % 0.2 Nucleated Red Blood Cells % 0.0 Neutrophils # 4.2 Lymphocytes # 1.5 Monocytes # 0.4 Eosinophils # 0.1 Basophils # 0.0 Nucleated Red Blood Cells # 0.0 Sodium Level 142 Potassium Level 4.6 Chloride Level 95 L Carbon Dioxide Level 28 Anion Gap 24 H Blood Urea Nitrogen 65 #H Creatinine 7.28 #H Glucose Level 91 Calcium Level 9.0 Phosphorus Level 5.9 H Iron Level 123 Total Iron Binding Capacity 154 L Percent Iron Saturation 80 H Ferritin 737.0 H Medications Current Medications Acetaminophen (Tylenol Tab) 650 mg Q6H PRN PO PAIN AND OR ELEVATED TEMP; Start 10/25/16 at 17:00 Aspirin (Aspirin) 81 mg DAILY PO Last administered on 10/27/16 11:44; Admin Dose 81 MG; Start 10/25/16 at 17:00 Carvedilol (Coreg) 12.5 mg BID PO Last administered on 10/26/16 20:54; Admin Dose 12.5 MG; Start 10/25/16 at 21:00 Clonidine (Catapres) 0.1 mg TID PO Last administered on 10/26/16 20:53; Admin Dose 0.1 MG; Start 10/25/16 at 21:00 Docusate Sodium (Colace) 100 mg Q12 PO Last administered on 10/27/16 11:44; Admin Dose 100 MG; Start 10/25/16 at 21:00 Minoxidil (Loniten) 5 mg BID PO Last administered on 10/26/16 20:54; Admin Dose 5 MG; Start 10/25/16 at 21:00 Multivit/Ca Carb/ B Cmplx/FA/Prenat (Katlyn-Michael) 1 tab DAILY PO Last administered on 10/27/16 11:45; Admin Dose 1 TAB; Start 10/25/16 at 18:00 Nifedipine (Procardia Xl) 30 mg BID PO Last administered on 10/26/16 20:54; Admin Dose 30 MG; Start 10/25/16 at 21:00 Pantoprazole (Protonix Tab) 40 mg DAILY@06 PO Last administered on 10/27/16 06 :16; Admin Dose 40 MG; Start 10/26/16 at 06:00 Salmeterol Xinafoate/ Fluticasone (Advair 500/50 Diskus) 1 inh BID INH Last administered on 10/27/16 11:43; Admin Dose 1 INH; Start 10/25/16 at 21:00 Senna (Senokot) 1 tab DAILY PRN PO CONSTIPATION; Start 10/25/16 at 17:00 Tamsulosin HCl (Flomax) 0.4 mg HS PO Last administered on 10/26/16 20:54; Admin Dose 0.4 MG; Start 10/25/16 at 21:00 Tiotropium [place] (Spiriva) 1 inh BID INH Last administered on 10/27/16 11:44 ; Admin Dose 1 INH; Start 10/25/16 at 21:00 Valsartan (Diovan) 320 mg DAILY PO ; Start 10/26/16 at 09:00 Miscellaneous Information 1 ea NOTE XX ; Start 10/25/16 at 17:30 Glucose (Glutose) 15 gm Q15M PRN PO DECREASED GLUCOSE; Start 10/25/16 at 17:30 Glucose (Glutose) 22.5 gm Q15M PRN PO DECREASED GLUCOSE; Start 10/25/16 at 17: 30 Dextrose (D50w Syringe) 25 ml Q15M PRN IV DECREASED GLUCOSE; Start 10/25/16 at 17:30 Dextrose (D50w Syringe) 50 ml Q15M PRN IV DECREASED GLUCOSE; Start 10/25/16 at 17:30 Glucagon (Glucagen) 1 mg Q15M PRN IM DECREASED GLUCOSE; Start 10/25/16 at 17:30 Glucose (Glutose) 15 gm Q15M PRN BUCCAL DECREASED GLUCOSE; Start 10/25/16 at 17 :30 Prednisolone (Prednisolone) 15 mg DAILY PO Last administered on 10/27/16 11:44 ; Admin Dose 15 MG; Start 10/25/16 at 18:30 Epoetin Jordon (Epogen (Esrd)) 10,000 units MoWeFr@17 SC ; Start 10/26/16 at 17:00 Amiodarone HCl (Cordarone) 200 mg DAILY PO Last administered on 10/26/16 10:09 ; Admin Dose 200 MG; Start 10/26/16 at 10:00 Assessment/Plan Chief Complaint/Hosp Course Assessment 1. Progressive hypoxemic respiratory failure secondary to volume overload, CT chest when euvolemic. 2. End-stage renal failure on hemodialysis, 3. History of coronary artery disease status post coronary artery bypass graft surgery 4. History of essential hypertension Recommendations 1. More aggressive volume removal during hemodialysis 2. Ongoing pulmonary edema. 3. Supplemental O2 as needed 4. Encourage ambulation 5. DVT and GI prophylaxis Problems: CARLEEN MORGAN MD, [facility] Oct 27, 2016 15:31
--- NOTE | 2016-10-27 16:44 | RADRPT ---
PROCEDURE: US Renal CLINICAL INDICATION: Hematuria. TECHNIQUE: Multiple sonographic images of the kidneys and bladder were obtained. Evaluation of th e kidneys and bladder was performed as well with christy scale and color and Doppler evaluation using a curved array transducer. The images were reviewed on a high-resolution PACS workstation. COMPARISON: Abdominal ultrasound from 03/19/2016 FINDINGS: The right kidney measures 9.8 cm. The left kidney measures 10.1 cm. There is normal echogenicity within the parenchyma of the kidneys bilaterally. There is a 2.8 x 3.1 cm simple cyst in the lower pole right kidney. There are several left renal cyst the largest measures 3.4 x 3.2 cm. No perinephric fluid collection is seen. Bladder was not distended. The prostate is upper limit normal in size. IMPRESSION: 1. Bilateral renal cysts. RPTAT: [facility] Physician Will Date Time Electronically viewed and signed by Physician Will on 10/27/2016 16:44 /
[2016-10-27] MEDS: TAMSULOSIN (SR) 0.4 MG CAP PO SCH (21:27)
--- NOTE | 2016-10-27 22:08 | CONS ---
Date/Time of Note Date/Time of Note DATE: 10/27/16 TIME: 22:07 Assessment/Plan Assessment/Plan Chief Complaint/Hosp Course Anemia - CHRONIC, MULTIFACTORIAL, COMPENSATED AT PRESENT +COMPONENT ACD AND IRON DEFICIENCY CONT TO MONITOR BLOOD COUNT CLOSELY OBSERVE FOR BLEEDING AND HEMOLYSIS TRANSFUSE NEEDED EPO WITH HD post EGD .07.27- Mild reflux esophagitis. Antral gastritis. Fundal nodular gastritis. LEUKOCYTOSIS REACTIVE MONITOR CLOSELY NOTE THAT PT IS not ON STEROIDS THROMBOCYTOPENIA- IMPROVED CONT TO MONITOR End-stage renal disease, hemodialysis dependent. Right chest Perm-A-Cath. Chronic obstructive pulmonary disease exacerbation. Tachycardia- h/o svt, nsvt HTN-. CAD - stable, s/p PCI 12/2015 with IZABELLA x 1 to RCA, no change on 01/2016 cath, small d2, managed medically Acute on chronic diastolic HF- difficult fluid mgmt with iHD Interstitial and COPD, rx with daily steroids (po) HX Acute respiratory failure HX Pneumonia Problems: Consultation Date/Type/Reason Admit Date/Time Oct 25, 2016 at 13:48 Type of Consultation: HEMEON Referring Provider: HINA CASTILLO MD 24 HR Interval Summary Free Text/Dictation ALL NOTED COUNT REVIEWED NO BLEEDING Exam/Review of Systems Vital Signs Vitals Vital Signs Date Time Temp Pulse Resp B/P Pulse Ox O2 Delivery O2 Flow Rate FiO2 10/27/16 20:06 98.1 65 18 125/58 96 10/27/16 19:26 Nasal Cannula 2.0 Intake and Output 10/26/16 10/26/16 10/27/16 15:00 23:00 07:00 Intake Total 1000 ml 300 ml Balance 1000 ml 300 ml Exam Constitutional: alert, distress, oriented, well developed, No frail, No non-verbal, No obese, No other Psych: anxiety, confusion, depression, No nl mood/affect, No no complaints, No other, No suicidal Head: atraumatic, No hematomas, No lacerations, No normocephalic, No other Eyes: EOMI, PERRL, nl lids, No fundi, disc, No icteric, No nl conjunctiva, No nl sclera, No other ENMT: No intubated, No mucosa pink and moist, No nl external ears & nose, No nl lips & teeth, No nl nasal mucosa & septum, No other, No tympanic membranes Neck: bruits, jvd, nuchal rigidity, No masses, No non-tender, No other, No supple, No thyromegaly Respiratory: congested cough, crackles/rales, diminished breath sounds, intercostal retraction, labored breathing, No clear to auscultation, No normal air movement, No other, No respirations, No tactile fremitus, No wheezing Cardiovascular: bruits, edema, irregular rhythm, jugular venous distention (JVD ), rub, systolic murmur, No S3, No S4, No diastolic murmur, No gallop, No murmurs/extra sounds, No nl pulses, No other, No regular rate and rhythm Gastrointestinal: bowel sounds, distended, rebound or guarding, No ascites, No firm, No hepatomegaly, No mass, No nl liver, spleen, No non- tender, No other, No soft, No splenomegaly, No surgical scars, No tender Genitourinary - Male: No CVA tenderness, No discharge, No nl penis, No nl scrotum, No other Musculoskeletal: joint tenderness, muscle tone, muscle weakness, No nl extremities to inspection, No nl gait and stance, No other, No range of motion, No spine non-tender, No swelling Extremities: calf tenderness, tenderness Neurological: DANCE CRITIC II-XII intact, confused, numbness, other (Anxious, tense, in resp. disstress.) Results Result Diagram: 10/27/16 0710/27/16 0719 Results 24 hrs Laboratory Tests Test 10/27/16 07:19 10/27/16 08:28 10/27/16 11:42 10/27/16 17:39 White Blood Count 6.3 Red Blood Count 3.16 L Hemoglobin 9.8 L Hematocrit 30.3 L Mean Corpuscular Volume 95.9 Mean Corpuscular Hemoglobin 31.0 Mean Corpuscular Hemoglobin Concent 32.3 Red Cell Distribution Width 15.2 H Platelet Count 160 Mean Platelet Volume 10.4 Neutrophils % 67.2 Lymphocytes % 24.2 Monocytes % 7.0 Eosinophils % 0.8 Basophils % 0.2 Nucleated Red Blood Cells % 0.0 Neutrophils # 4.2 Lymphocytes # 1.5 Monocytes # 0.4 Eosinophils # 0.1 Basophils # 0.0 Nucleated Red Blood Cells # 0.0 Sodium Level 142 Potassium Level 4.6 Chloride Level 95 L Carbon Dioxide Level 28 Anion Gap 24 H Blood Urea Nitrogen 65 #H Creatinine 7.28 #H Glucose Level 91 Calcium Level 9.0 Phosphorus Level 5.9 H Iron Level 123 Total Iron Binding Capacity 154 L Percent Iron Saturation 80 H Ferritin 737.0 H Bedside Glucose 157 121 102 Medications Medications Current Medications Acetaminophen (Tylenol Tab) 650 mg Q6H PRN PO PAIN AND OR ELEVATED TEMP; Start 10/25/16 at 17:00 Aspirin (Aspirin) 81 mg DAILY PO Last administered on 10/27/16 11:44; Admin Dose 81 MG; Start 10/25/16 at 17:00 Carvedilol (Coreg) 12.5 mg BID PO Last administered on 10/26/16 20:54; Admin Dose 12.5 MG; Start 10/25/16 at 21:00 Clonidine (Catapres) 0.1 mg TID PO Last administered on 10/26/16 20:53; Admin Dose 0.1 MG; Start 10/25/16 at 21:00 Docusate Sodium (Colace) 100 mg Q12 PO Last administered on 10/27/16 21:26; Admin Dose 100 MG; Start 10/25/16 at 21:00 Minoxidil (Loniten) 5 mg BID PO Last administered on 10/26/16 20:54; Admin Dose 5 MG; Start 10/25/16 at 21:00 Multivit/Ca Carb/ B Cmplx/FA/Prenat (Katlyn-Michael) 1 tab DAILY PO Last administered on 10/27/16 11:45; Admin Dose 1 TAB; Start 10/25/16 at 18:00 Nifedipine (Procardia Xl) 30 mg BID PO Last administered on 10/26/16 20:54; Admin Dose 30 MG; Start 10/25/16 at 21:00 Pantoprazole (Protonix Tab) 40 mg DAILY@06 PO Last administered on 10/27/16 06 :16; Admin Dose 40 MG; Start 10/26/16 at 06:00 Salmeterol Xinafoate/ Fluticasone (Advair 500/50 Diskus) 1 inh BID INH Last administered on 10/27/16 21:27; Admin Dose 1 INH; Start 10/25/16 at 21:00 Senna (Senokot) 1 tab DAILY PRN PO CONSTIPATION; Start 10/25/16 at 17:00 Tamsulosin HCl (Flomax) 0.4 mg HS PO Last administered on 10/27/16 21:27; Admin Dose 0.4 MG; Start 10/25/16 at 21:00 Tiotropium Mabie (Spiriva) 1 inh BID INH Last administered on 10/27/16 21:27 ; Admin Dose 1 INH; Start 10/25/16 at 21:00 Valsartan (Diovan) 320 mg DAILY PO ; Start 10/26/16 at 09:00 Miscellaneous Information 1 ea NOTE XX ; Start 10/25/16 at 17:30 Glucose (Glutose) 15 gm Q15M PRN PO DECREASED GLUCOSE; Start 10/25/16 at 17:30 Glucose (Glutose) 22.5 gm Q15M PRN PO DECREASED GLUCOSE; Start 10/25/16 at 17: 30 Dextrose (D50w Syringe) 25 ml Q15M PRN IV DECREASED GLUCOSE; Start 10/25/16 at 17:30 Dextrose (D50w Syringe) 50 ml Q15M PRN IV DECREASED GLUCOSE; Start 10/25/16 at 17:30 Glucagon (Glucagen) 1 mg Q15M PRN IM DECREASED GLUCOSE; Start 10/25/16 at 17:30 Glucose (Glutose) 15 gm Q15M PRN BUCCAL DECREASED GLUCOSE; Start 10/25/16 at 17 :30 Prednisolone (Prednisolone) 15 mg DAILY PO Last administered on 10/27/16 11:44 ; Admin Dose 15 MG; Start 10/25/16 at 18:30 Epoetin Jordon (Epogen (Esrd)) 10,000 units MoWeFr@17 SC ; Start 10/26/16 at 17:00 Amiodarone HCl (Cordarone) 200 mg DAILY PO Last administered on 10/26/16 10:09 ; Admin Dose 200 MG; Start 10/26/16 at 10:00 NADRE SMITH MD Oct 27, 2016 22:08
--- NOTE | 2016-10-27 22:09 | CONS ---
Date/Time of Note Date/Time of Note DATE: 10/25/16 TIME: 19:08 VK LE Assessment/Plan Assessment/Plan Chief Complaint/Hosp Course Anemia - CHRONIC, MULTIFACTORIAL, COMPENSATED AT PRESENT +COMPONENT ACD AND IRON DEFICIENCY CONT TO MONITOR BLOOD COUNT CLOSELY OBSERVE FOR BLEEDING AND HEMOLYSIS TRANSFUSE NEEDED EPO WITH HD post EGD 5..17- Mild reflux esophagitis. Antral gastritis. Fundal nodular gastritis. LEUKOCYTOSIS REACTIVE MONITOR CLOSELY NOTE THAT PT IS not ON STEROIDS THROMBOCYTOPENIA- IMPROVED CONT TO MONITOR End-stage renal disease, hemodialysis dependent. Right chest Perm-A-Cath. Chronic obstructive pulmonary disease exacerbation. Tachycardia- h/o svt, nsvt HTN-. CAD - stable, s/p PCI 12/2015 with IZABELLA x 1 to RCA, no change on 01/2016 cath, small d2, managed medically Acute on chronic diastolic HF- difficult fluid mgmt with iHD Interstitial and COPD, rx with daily steroids (po) HX Acute respiratory failure HX Pneumonia Problems: Consultation Date/Type/Reason Admit Date/Time Oct 25, 2016 at 13:48 Date of Consultation: Oct 25, 2016 Type of Consultation: HEMEONC Reason for Consultation ANEMIA Referring Provider: HINA CASTILLO MD Hx of Present Illness This is a 81-year-old male with a history of hypertension and end-stage renal disease who receives dialysis on Wednesday, , Wednesday who did complete dialysis yesterday and presents to the emergency room today for evaluation of shortness of breath. When I evaluated this patient he was stating that he has been feeling short of breath and states that at dialysis yesterday they only removed 1-2 L of fluid and he normally removed approximately 3. The patient states that his shortness of breath is worse when he lays flat and he called 911 and came in from home for evaluation. He is denying any active chest pain at this time and denies any palpitations or diaphoresis I WAS ASKED TO PROVIDE HEMEONC CONSULT RE ANEMIA ROS All systems reviewed and are negative except as per history of present illness. Medications Home Meds Active Scripts Aspirin (Aspirin) 81 Mg Chew, 81 MG PO DAILY for 30 Days, #30 TAB Prov:HINA CASTILLO MD 09/22/16 Valsartan* (Diovan*) 160 Mg Tablet, 320 MG PO DAILY for 30 Days, #30 TAB HOLD IF SBP<110;HR Prov:HINA CASTILLO MD 09/22/16 Calcium Acetate* (Calcium Acetate*) 667 Mg Capsule, 667 MG PO WITH MEALS for 30 Days, #30 CAP Prov:HINA CASTILLO MD 09/22/16 Tiotropium Alexis* (Spiriva*) 18 Mcg Cap.w.dev, 1 INH INH BID for 30 Days, #60 CAP Prov:HINA CASTILLO MD 09/22/16 Nifedipine (Procardia Xl) 30 Mg Tab.er.24, 30 MG PO BID for 30 Days, #30 TAB Prov:HINA CASTILLO MD 09/22/16 Minoxidil* (Lonitin*) 2.5 Mg Tab, 5 MG PO BID for 30 Days, #60 TAB Prov:HINA CASTILLO MD 09/22/16 Clonidine Hcl* (Clonidine Hcl*) 0.1 Mg Tab, 0.1 MG PO TID for 30 Days, #90 TAB Prov:HINA CASTILLO MD 09/22/16 Carvedilol* (Carvedilol*) 12.5 Mg Tablet, 12.5 MG PO BID for 30 Days, #60 TAB Prov:HINA CASTILLO MD 09/22/16 Albuterol Sulfate* (Albuterol Sulfate* Neb) 0.083%-3 Ml Neb, 2.5 MG HHN Q6HWA RESP THERAPY for 30 Days, #90 BLIST PACK Prov:HINA CASTILLO MD 09/22/16 Acetaminophen* (Tylenol*) 325 Mg Tablet, 650 MG PO Q6H Y for PAIN AND OR ELEVATED TEMP for 30 Days, #90 TAB Prov:HINA CASTILLO MD 09/22/16 Tamsulosin Hcl* (Tamsulosin Hcl*) 0.4 Mg Cap.er.24h, 0.4 MG PO HS for 30 Days, # 30 CAP Prov:HNIA CASTILLO MD 09/22/16 Salmeterol Xinaf-Fluticasone* (Advair*) 500/50 Diskus Inhaler, 1 INH INH BID for 30 Days, #1 CAP.EC Prov:HINA CASTILLO MD 04/28/16 Pantoprazole* (Pantoprazole*) 40 Mg Tablet.dr, 40 MG PO DAILY@06 for 30 Days, # 30 BOX Prov:HINA CASTILLO MD 04/28/16 Reported Medications Prednisolone* (Prelone*) 15 Mg/5 Ml Solution, 15 MG PO DAILY, ML 06/02/16 Multivit/Ca Carb/B Cmplx/Fa* (Katlyn-Michael*) 1 Tab Tab, 1 TAB PO DAILY, TAB 06/02/16 Insulin Aspart (Novolog) 100 Unit/1 Ml Cartridge, 0 SQ SLIDING SCALE BEFORE MEALS; 200-250=2 UNITS, 251-300=4 UNITS, 301-350=6 UNITS, 351-400=8 UNITS,>400=10 UNITS AND CALL 06/02/16 Docusate Sodium* (Docusate Sodium*) 100 Mg Capsule, 100 MG PO Q12, #60 CAP 06/02/16 Sennosides* (Senna Lax*) 8.6 Mg Tablet, 1 TAB PO DAILY Y for CONSTIPATION, TAB 01/13/16 Levothyroxine Sodium* (Levothyroxine Sodium*) 125 Mcg Tablet, 125 MCG PO BEFORE BREAKFAST, #30 TAB 11/28/15 Allergies Allergies: Coded Allergies: No Known Allergy (Unverified , 06/02/16) PMhx/Soc History of Surgery: Yes (tunnelled cath placement) Anesthesia Reaction: No Hx Neurological Disorder: No Hx Respiratory Disorders: No Hx Cardiac Disorders: Yes (HTN) Hx Psychiatric Problems: No Hx Miscellaneous Medical Probl: Yes (ESRD) Hx Alcohol Use: No Hx Substance Use: No Hx Tobacco Use: No Smoking Status: Unknown if ever smoked Constitutional: chills, No diaphoresis, No disoriented, No febrile, No improved, No no complaints, No other, No poor po, No requiring IVF, No requiring O2 Eyes: No discharge, No no complaints, No other, No pain, No redness, No visual change ENT: dysphagia, sore throat, No bleeding, No congestion, No discharge, No no complaints, No other, No pain Respiratory: cough (mild and no cough) Cardiovascular: No chest pain Gastrointestinal: no complaints Genitourinary: no complaints Musculoskeletal: back pain, bone/joint pain, neck pain, No no complaints, No other, No restricted range of motion, No swelling Skin: bruising, pruritis, rash, skin lesions, No erythema, No laceration, No no complaints, No other Neurologic: confusion, dizziness, headache, No focal-weakness, No no complaints, No other, No seizure, No syncope Lymphatic: adenopathy, tender nodes Psychological: anxiety, confusion, depression, No nl mood/affect, No no complaints, No other, No suicidal Immunologic: pruritis, urticaria Past Surgical History Past Surgical Hx: other (angioplasty, coronary bypass surgery, endoscopy) Social History Alcohol Use: none Smoking Status: Never smoker Drug Use: none Exam/Review of Systems Vital Signs Vitals Vital Signs Date Time Temp Pulse Resp B/P Pulse Ox O2 Delivery O2 Flow Rate FiO2 10/25/16 12:43 Nasal Cannula 4 10/25/16 12:08 96.6 67 21 176/63 100 Exam GENERAL: The patient is well developed and appropriate for usual state of health in no apparent distress HEENT: Pupils equal, round, and reactive to light. EOMI. There is no scleral icterus. NECK: C-spine is soft and supple, there is no meningismus. There is no cervical lymphadenopathy. LUNGS: Coarse breath sounds bilaterally. There are no rales, wheezes or rhonchi. HEART: Regular rate and rhythm, no murmurs, clicks, rubs or gallops. ABDOMEN: Soft, non-tender, non-distended. There are bowel sounds in all four quadrants. No rebound or guarding. EXTREMITIES: There is no peripheral cyanosis or edema. No focal swelling or erythema. NEUROLOGICAL: The patient moves all four extremities with 5/5 strength. Cranial nerves II - XII are intact. Normal gait. Alert and oriented SKIN: There is no apparent rash or petechiae. HEME/LYMPHATIC: There is no evidence of excessive bruising or lymphedema. PSYCHIATRIC: The patient does not appear anxious or depressed. Results Result Diagram: 10/27/16 0710/27/16 0719 Results 24 hrs Laboratory Tests Test 10/27/16 07:19 10/27/16 08:28 10/27/16 11:42 10/27/16 17:39 White Blood Count 6.3 Red Blood Count 3.16 L Hemoglobin 9.8 L Hematocrit 30.3 L Mean Corpuscular Volume 95.9 Mean Corpuscular Hemoglobin 31.0 Mean Corpuscular Hemoglobin Concent 32.3 Red Cell Distribution Width 15.2 H Platelet Count 160 Mean Platelet Volume 10.4 Neutrophils % 67.2 Lymphocytes % 24.2 Monocytes % 7.0 Eosinophils % 0.8 Basophils % 0.2 Nucleated Red Blood Cells % 0.0 Neutrophils # 4.2 Lymphocytes # 1.5 Monocytes # 0.4 Eosinophils # 0.1 Basophils # 0.0 Nucleated Red Blood Cells # 0.0 Sodium Level 142 Potassium Level 4.6 Chloride Level 95 L Carbon Dioxide Level 28 Anion Gap 24 H Blood Urea Nitrogen 65 #H Creatinine 7.28 #H Glucose Level 91 Calcium Level 9.0 Phosphorus Level 5.9 H Iron Level 123 Total Iron Binding Capacity 154 L Percent Iron Saturation 80 H Ferritin 737.0 H Bedside Glucose 157 121 102 Medications Medications Current Medications Acetaminophen (Tylenol Tab) 650 mg Q6H PRN PO PAIN AND OR ELEVATED TEMP; Start 10/25/16 at 17:00 Aspirin (Aspirin) 81 mg DAILY PO Last administered on 10/27/16 11:44; Admin Dose 81 MG; Start 10/25/16 at 17:00 Carvedilol (Coreg) 12.5 mg BID PO Last administered on 10/26/16 20:54; Admin Dose 12.5 MG; Start 10/25/16 at 21:00 Clonidine (Catapres) 0.1 mg TID PO Last administered on 10/26/16 20:53; Admin Dose 0.1 MG; Start 10/25/16 at 21:00 Docusate Sodium (Colace) 100 mg Q12 PO Last administered on 10/27/16 21:26; Admin Dose 100 MG; Start 10/25/16 at 21:00 Minoxidil (Loniten) 5 mg BID PO Last administered on 10/26/16 20:54; Admin Dose 5 MG; Start 10/25/16 at 21:00 Multivit/Ca Carb/ B Cmplx/FA/Prenat (Katlyn-Michael) 1 tab DAILY PO Last administered on 10/27/16 11:45; Admin Dose 1 TAB; Start 10/25/16 at 18:00 Nifedipine (Procardia Xl) 30 mg BID PO Last administered on 10/26/16 20:54; Admin Dose 30 MG; Start 10/25/16 at 21:00 Pantoprazole (Protonix Tab) 40 mg DAILY@06 PO Last administered on 10/27/16 06 :16; Admin Dose 40 MG; Start 10/26/16 at 06:00 Salmeterol Xinafoate/ Fluticasone (Advair 500/50 Diskus) 1 inh BID INH Last administered on 10/27/16 21:27; Admin Dose 1 INH; Start 10/25/16 at 21:00 Senna (Senokot) 1 tab DAILY PRN PO CONSTIPATION; Start 10/25/16 at 17:00 Tamsulosin HCl (Flomax) 0.4 mg HS PO Last administered on 10/27/16 21:27; Admin Dose 0.4 MG; Start 10/25/16 at 21:00 Tiotropium Alexis (Spiriva) 1 inh BID INH Last administered on 10/27/16 21:27 ; Admin Dose 1 INH; Start 10/25/16 at 21:00 Valsartan (Diovan) 320 mg DAILY PO ; Start 10/26/16 at 09:00 Miscellaneous Information 1 ea NOTE XX ; Start 10/25/16 at 17:30 Glucose (Glutose) 15 gm Q15M PRN PO DECREASED GLUCOSE; Start 10/25/16 at 17:30 Glucose (Glutose) 22.5 gm Q15M PRN PO DECREASED GLUCOSE; Start 10/25/16 at 17: 30 Dextrose (D50w Syringe) 25 ml Q15M PRN IV DECREASED GLUCOSE; Start 10/25/16 at 17:30 Dextrose (D50w Syringe) 50 ml Q15M PRN IV DECREASED GLUCOSE; Start 10/25/16 at 17:30 Glucagon (Glucagen) 1 mg Q15M PRN IM DECREASED GLUCOSE; Start 10/25/16 at 17:30 Glucose (Glutose) 15 gm Q15M PRN BUCCAL DECREASED GLUCOSE; Start 10/25/16 at 17 :30 Prednisolone (Prednisolone) 15 mg DAILY PO Last administered on 10/27/16 11:44 ; Admin Dose 15 MG; Start 10/25/16 at 18:30 Epoetin Jordon (Epogen (Esrd)) 10,000 units MoWeFr@17 SC ; Start 10/26/16 at 17:00 Amiodarone HCl (Cordarone) 200 mg DAILY PO Last administered on 10/26/16 10:09 ; Admin Dose 200 MG; Start 10/26/16 at 10:00 ANDRE SMITH MD Oct 27, 2016 22:08
[2016-10-28] VITALS (11 sets, daily range): BP systolic 129–180; BP diastolic 58–76; PULSE 63–76; RESP 19–20
[2016-10-28] MEDS: PANTOPRAZOLE (EC) 40 MG TAB PO SCH (06:14)
[2016-10-28] MEDS: LEVOTHYROXINE 125 MCG TAB PO SCH (06:14)
[2016-10-28] MEDS: ALBUTEROL 0.083% (NEB) 2.5 MG/3 ML AMP HHN SCH ×3 (08:14→19:57)
[2016-10-28 08:31] LABS: ADD SCAN DIFF NO
--- NOTE | 2016-10-28 08:35 | CONS ---
Date/Time of Note Date/Time of Note DATE: 10/28/16 TIME: 08:33 Assessment/Plan Assessment/Plan Additional Assessment/Plan 1. CHF has resolved. 2. BP is controlled 3. Anemia is stable 4. Known COPD and interstitial lung dz 5. CKD, to have HD tomm and anticipate dc tomm Consultation Date/Type/Reason Admit Date/Time Oct 25, 2016 at 13:48 Initial Consult Date 10/26/16 Type of Consultation: [facility] Referring Provider: HINA CASTILLO MD Detailed Summary Respiratory: shortness of breath (is less) Cardiovascular: No chest pain Gastrointestinal: no complaints Genitourinary: no complaints Exam/Review of Systems Vital Signs Vitals Vital Signs Date Time Temp Pulse Resp B/P Pulse Ox O2 Delivery O2 Flow Rate FiO2 10/28/16 08:16 2.0 10/28/16 08:16 66 18 98 Nasal Cannula 10/28/16 07:47 98.1 162/70 Intake and Output 10/27/16 10/27/16 10/28/16 15:00 23:00 07:00 Intake Total 500 ml 850 ml 240 ml Output Total 3000 ml Balance -2500 ml 850 ml 240 ml Exam Neck: No jvd Respiratory: clear to auscultation (except for unchanged few dry rales at baes) Cardiovascular: regular rate and rhythm, No S3 Gastrointestinal: soft Extremities: No edema Results Result Diagram: 10/27/1671810/27/16718 Results 24 hrs Laboratory Tests Test 10/27/16 11:42 10/27/16 17:39 10/28/16 07:46 Bedside Glucose 121 102 123 Medications Medications Current Medications Acetaminophen (Tylenol Tab) 650 mg Q6H PRN PO PAIN AND OR ELEVATED TEMP; Start 10/25/16 at 17:00 Aspirin (Aspirin) 81 mg DAILY PO Last administered on 10/27/16 11:44; Admin Dose 81 MG; Start 10/25/16 at 17:00 Carvedilol (Coreg) 12.5 mg BID PO Last administered on 10/26/16 20:54; Admin Dose 12.5 MG; Start 10/25/16 at 21:00 Clonidine (Catapres) 0.1 mg TID PO Last administered on 10/26/16 20:53; Admin Dose 0.1 MG; Start 10/25/16 at 21:00 Docusate Sodium (Colace) 100 mg Q12 PO Last administered on 10/27/16 21:26; Admin Dose 100 MG; Start 10/25/16 at 21:00 Minoxidil (Loniten) 5 mg BID PO Last administered on 10/26/16 20:54; Admin Dose 5 MG; Start 10/25/16 at 21:00 Multivit/Ca Carb/ B Cmplx/FA/Prenat (Katlyn-Michael) 1 tab DAILY PO Last administered on 10/27/16 11:45; Admin Dose 1 TAB; Start 10/25/16 at 18:00 Nifedipine (Procardia Xl) 30 mg BID PO Last administered on 10/26/16 20:54; Admin Dose 30 MG; Start 10/25/16 at 21:00 Pantoprazole (Protonix Tab) 40 mg DAILY@06 PO Last administered on 10/28/16 06 :14; Admin Dose 40 MG; Start 10/26/16 at 06:00 Salmeterol Xinafoate/ Fluticasone (Advair 500/50 Diskus) 1 inh BID INH Last administered on 10/27/16 21:27; Admin Dose 1 INH; Start 10/25/16 at 21:00 Senna (Senokot) 1 tab DAILY PRN PO CONSTIPATION; Start 10/25/16 at 17:00 Tamsulosin HCl (Flomax) 0.4 mg HS PO Last administered on 10/27/16 21:27; Admin Dose 0.4 MG; Start 10/25/16 at 21:00 Tiotropium Barco (Spiriva) 1 inh BID INH Last administered on 10/27/16 21:27 ; Admin Dose 1 INH; Start 10/25/16 at 21:00 Valsartan (Diovan) 320 mg DAILY PO ; Start 10/26/16 at 09:00 Miscellaneous Information 1 ea NOTE XX ; Start 10/25/16 at 17:30 Glucose (Glutose) 15 gm Q15M PRN PO DECREASED GLUCOSE; Start 10/25/16 at 17:30 Glucose (Glutose) 22.5 gm Q15M PRN PO DECREASED GLUCOSE; Start 10/25/16 at 17: 30 Dextrose (D50w Syringe) 25 ml Q15M PRN IV DECREASED GLUCOSE; Start 10/25/16 at 17:30 Dextrose (D50w Syringe) 50 ml Q15M PRN IV DECREASED GLUCOSE; Start 10/25/16 at 17:30 Glucagon (Glucagen) 1 mg Q15M PRN IM DECREASED GLUCOSE; Start 10/25/16 at 17:30 Glucose (Glutose) 15 gm Q15M PRN BUCCAL DECREASED GLUCOSE; Start 10/25/16 at 17 :30 Prednisolone (Prednisolone) 15 mg DAILY PO Last administered on 10/27/16 11:44 ; Admin Dose 15 MG; Start 10/25/16 at 18:30 Epoetin Jordon (Epogen (Esrd)) 10,000 units MoWeFr@17 SC ; Start 10/26/16 at 17:00 Amiodarone HCl (Cordarone) 200 mg DAILY PO Last administered on 10/26/16 10:09 ; Admin Dose 200 MG; Start 10/26/16 at 10:00 TRUE GTZ MD Oct 28, 2016 08:35
[2016-10-28 08:44] LABS: BASOPHILS % 0.1 % (0.0-2.0); EOSINOPHILS # 0.1 10^3/ul (0.0-0.5); EOSINOPHILS % 1.2 % (0.0-7.0); HEMATOCRIT 31.3 % (42.0-52.0); HEMOGLOBIN 10.1 g/dl (14.0-18.0); LYMPHOCYTES # 1.8 10^3/ul (0.8-2.9); LYMPHOCYTES % 24.4 % (15.0-51.0); MEAN CORPUSCULAR HEMOGLOBIN 30.5 pg (29.0-33.0); MEAN CORPUSCULAR HGB CONC 32.3 g/dl (32.0-37.0); MEAN CORPUSCULAR VOLUME 94.6 fl (82.0-101.0); MEAN PLATELET VOLUME 10.2 fl (7.4-10.4); MONOCYTE # 0.5 10^3/ul (0.3-0.9); MONOCYTES % 7.3 % (0.0-11.0); NEUTROPHIL # 4.9 10^3/ul (1.6-7.5); NEUTROPHILS % 66.3 % (39.0-77.0); PLATELET COUNT 161 10^3/UL (140-415); RED BLOOD COUNT 3.31 10^6/ul (4.70-6.10); RED CELL DISTRIBUTION WIDTH 15.3 % (11.5-14.5); WHITE BLOOD COUNT 7.4 10^3/ul (4.8-10.8)
[2016-10-28 08:53] LABS: CALCIUM 8.5 mg/dl (8.4-10.2); CREATININE 5.86 mg/dl (0.61-1.24); POTASSIUM 4.2 mmol/L (3.5-5.1)
[2016-10-28] MEDS: MINOXIDIL 2.5 MG TAB PO SCH ×2 (09:00→20:46)
[2016-10-28] MEDS: ASPIRIN 81 MG TAB PO SCH (09:00)
[2016-10-28] MEDS: MULTIVIT/CA CARB/B CMPLX/FA TAB PO SCH (09:06)
[2016-10-28] MEDS: NIFEdipine (XL) 30 MG TAB PO SCH ×2 (09:06→20:45)
[2016-10-28] MEDS: predniSOLONE 5 MG TAB PO SCH (09:06)
[2016-10-28] MEDS: CALCIUM ACETATE 667 MG CAP PO SCH ×3 (09:07→17:21)
[2016-10-28] MEDS: DOCUSATE SODIUM 100 MG CAP PO SCH ×2 (09:07→20:45)
[2016-10-28] MEDS: AMIODARONE 200 MG TAB PO SCH (09:08)
[2016-10-28] MEDS: SALMETEROL/FLUTICASONE 500/50 INHA INH SCH ×2 (09:10→20:46)
[2016-10-28] MEDS: TIOTROPIUM 18 MCG CAPSULE INHA DEV INH SCH ×2 (09:10→21:00)
[2016-10-28] MEDS: INSULIN ASPART [NOVOLOG] 3 ML PEN SC SCH ×3 (09:28→17:20)
--- NOTE | 2016-10-28 13:51 | PN ---
Date/Time of Note Date/Time of Note DATE: 10/28/16 TIME: 13:48 Assessment/Plan VTE Prophylaxis VTE Prophylaxis Intervention: ambulation, anti-embolic stocking VTE Contraindication Reason: peripheral vascular disease Lines/Catheters IV Catheter Type (from Nrsg): [place] [employer] line still needed: No Urinary Cath still in place: No Reason Cath still needed: urinary retention Assessment/Plan Assessment/Plan 1.Pulmonary edema. 2.Fluid overload 3.CKD on HD, last one yesterday.2. Hematuria.Was on home steroids now 8 mg qd more than 4 months. Noncompliance.Discuses with .Chronic metabolic acidosis with hypocapnia. 4.Grief reaction after the of a .Major depression with anxiety and memory impairment wit sleep disturbance. 5. Anxiety, depression with dissatisfaction 6. Diabetes type 2-better controlled 7. Osteoarthritis. 8. Anemia of chronic disease 9. Status post multiple units of packed red blood cell transfusions-now getting more.. 10. Weight loss-more than 60lb in 11 months. 11. Hypertension-better controlled. 12. Memory impairment. 13. Major depression. 14. Back pain. 15. Benign prostatic hypertrophy. 16. S/P left forearm a/v shunt placement for dialysis-functions well , not mature yet. 17. S/P right Jugular vein cannulation for dialysis-no signs of infection. 18. Hypoxemia with hypercapnia(Hx of) on home 02 and BIPAP. 19. Anxiety; borderline personality; 20. Excessive thirst. 21. Constipation 22.Chest pain during HD today frequently(s/p 2 angiographies and stenting)cardiology consult. 23.Terminally ill with inability to decide DNR status. He refused to answer. Macario Banegas received a modesto from RN that he agreed for DNR and DNI. 24.Incomplete data. Cont'd Hospitalization Reason: as above. Subjective 24 Hr Interval Summary Free Text/Dictation Increased sputum production. Unable to expectorate. Swallows. CP on and off. Constitutional: diaphoresis, poor po, requiring O2 Eyes: pain ENT: discharge, dysphagia, pain, sore throat, No bleeding, No congestion, No no complaints, No other Respiratory: pain, shortness of breath, No cough, No no complaints, No other, No pleuritic pain, No sputum, No wheezing Gastrointestinal: constipation, nausea, pain, No blood, No decreased appetite, No diarrhea, No flatus, No no complaints, No other, No passing stool, No vomiting Genitourinary: dysuria Musculoskeletal: back pain, bone/joint pain, neck pain, restricted range of motion, No no complaints, No other, No swelling Skin: erythema, pruritis, rash, No bruising, No laceration, No no complaints, No other, No skin lesions Neurologic: confusion, dizziness, No focal-weakness, No headache, No no complaints, No other, No seizure, No syncope Endocrine: dry skin, No no complaints, No other, No polydypsia, No polyuria, No temp intolerance Psychological: anxiety, confusion, depression, No nl mood/affect, No no complaints, No other, No suicidal Exam/Review of Systems Vital Signs Vitals Vital Signs Date Time Temp Pulse Resp B/P Pulse Ox O2 Delivery O2 Flow Rate FiO2 10/28/16 12:23 74 10/28/16 11:53 98.3 19 129/58 96 10/28/16 08:16 2.0 10/28/16 08:16 Nasal Cannula Intake and Output 10/27/16 10/27/16 10/28/16 15:00 23:00 07:00 Intake Total 500 ml 850 ml 240 ml Output Total 3000 ml Balance -2500 ml 850 ml 240 ml Exam Head: atraumatic Eyes: EOMI, PERRL, nl lids, No fundi, disc, No icteric, No nl conjunctiva, No nl sclera, No other ENMT: nl nasal mucosa & septum, No intubated, No mucosa pink and moist, No nl external ears & nose, No nl lips & teeth, No other, No tympanic membranes Neck: bruits, jvd, masses, No non-tender, No nuchal rigidity, No other, No supple, No thyromegaly Respiratory: congested cough, intercostal retraction, No clear to auscultation, No crackles/rales, No diminished breath sounds, No labored breathing, No normal air movement, No other, No respirations, No tactile fremitus, No wheezing Cardiovascular: bruits, jugular venous distention (JVD), systolic murmur, No S3, No S4, No diastolic murmur, No edema, No gallop, No irregular rhythm, No murmurs/extra sounds, No nl pulses, No other, No regular rate and rhythm, No rub Gastrointestinal: ascites, bowel sounds, distended, rebound or guarding, soft, No firm, No hepatomegaly, No mass, No nl liver, spleen, No non-tender, No other, No splenomegaly, No surgical scars, No tender Genitourinary - Male: CVA tenderness, No discharge, No nl penis, No nl scrotum , No other Musculoskeletal: joint tenderness, muscle tone, muscle weakness, No nl extremities to inspection, No nl gait and stance, No other, No range of motion, No spine non-tender, No swelling Extremities: calf tenderness, edema, No clubbing, No cyanosis, No normal pulses, No other, No palpable cord, No pitting pedal edema, No tenderness Neurological: [employer] II-XII intact, DTR's symmetric, confused, nl mental status, nl speech, No focal weakness, No lethargic, No nl strength, No numbness, No other, No reflexes, No unresponsive Skin: diaphoresis Results Result Diagram: 10/28/16 0804 10/28/16 0805 Results 24 hrs Laboratory Tests Test 10/27/16 17:39 10/28/16 07:46 10/28/16 08:04 10/28/16 08:05 Bedside Glucose 102 123 White Blood Count 7.4 Red Blood Count 3.31 L Hemoglobin 10.1 L Hematocrit 31.3 L Mean Corpuscular Volume 94.6 Mean Corpuscular Hemoglobin 30.5 Mean Corpuscular Hemoglobin Concent 32.3 Red Cell Distribution Width 15.3 H Platelet Count 161 Mean Platelet Volume 10.2 Neutrophils % 66.3 Lymphocytes % 24.4 Monocytes % 7.3 Eosinophils % 1.2 Basophils % 0.1 Nucleated Red Blood Cells % 0.0 Neutrophils # 4.9 Lymphocytes # 1.8 Monocytes # 0.5 Eosinophils # 0.1 Basophils # 0.0 Nucleated Red Blood Cells # 0.0 Sodium Level 138 Potassium Level 4.2 Chloride Level 92 L Carbon Dioxide Level 31 Anion Gap 19 H Blood Urea Nitrogen 54 H Creatinine 5.86 H Glucose Level 122 Calcium Level 8.5 Test 10/28/16 11:35 Bedside Glucose 83 Medications Medications Current Medications Acetaminophen (Tylenol Tab) 650 mg Q6H PRN PO PAIN AND OR ELEVATED TEMP; Start 10/25/16 at 17:00 Aspirin (Aspirin) 81 mg DAILY PO Last administered on 10/27/16 11:44; Admin Dose 81 MG; Start 10/25/16 at 17:00 Carvedilol (Coreg) 12.5 mg BID PO Last administered on 10/26/16 20:54; Admin Dose 12.5 MG; Start 10/25/16 at 21:00 Clonidine (Catapres) 0.1 mg TID PO Last administered on 10/28/16 09:09; Admin Dose 0.1 MG; Start 10/25/16 at 21:00 Docusate Sodium (Colace) 100 mg Q12 PO Last administered on 10/28/16 09:07; Admin Dose 100 MG; Start 10/25/16 at 21:00 Minoxidil (Loniten) 5 mg BID PO Last administered on 10/26/16 20:54; Admin Dose 5 MG; Start 10/25/16 at 21:00 Multivit/Ca Carb/ B Cmplx/FA/Prenat (Katlyn-Michael) 1 tab DAILY PO Last administered on 10/28/16 09:06; Admin Dose 1 TAB; Start 10/25/16 at 18:00 Nifedipine (Procardia Xl) 30 mg BID PO Last administered on 10/28/16 09:06; Admin Dose 30 MG; Start 10/25/16 at 21:00 Pantoprazole (Protonix Tab) 40 mg DAILY@06 PO Last administered on 10/28/16 06 :14; Admin Dose 40 MG; Start 10/26/16 at 06:00 Salmeterol Xinafoate/ Fluticasone (Advair 500/50 Diskus) 1 inh BID INH Last administered on 10/28/16 09:10; Admin Dose 1 INH; Start 10/25/16 at 21:00 Senna (Senokot) 1 tab DAILY PRN PO CONSTIPATION; Start 10/25/16 at 17:00 Tamsulosin HCl (Flomax) 0.4 mg HS PO Last administered on 10/27/16 21:27; Admin Dose 0.4 MG; Start 10/25/16 at 21:00 Tiotropium [place] (Spiriva) 1 inh BID INH Last administered on 10/28/16 09:10 ; Admin Dose 1 INH; Start 10/25/16 at 21:00 Valsartan (Diovan) 320 mg DAILY PO ; Start 10/26/16 at 09:00 Miscellaneous Information 1 ea NOTE XX ; Start 10/25/16 at 17:30 Glucose (Glutose) 15 gm Q15M PRN PO DECREASED GLUCOSE; Start 10/25/16 at 17:30 Glucose (Glutose) 22.5 gm Q15M PRN PO DECREASED GLUCOSE; Start 10/25/16 at 17: 30 Dextrose (D50w Syringe) 25 ml Q15M PRN IV DECREASED GLUCOSE; Start 10/25/16 at 17:30 Dextrose (D50w Syringe) 50 ml Q15M PRN IV DECREASED GLUCOSE; Start 10/25/16 at 17:30 Glucagon (Glucagen) 1 mg Q15M PRN IM DECREASED GLUCOSE; Start 10/25/16 at 17:30 Glucose (Glutose) 15 gm Q15M PRN BUCCAL DECREASED GLUCOSE; Start 10/25/16 at 17 :30 Prednisolone (Prednisolone) 15 mg DAILY PO Last administered on 10/28/16 09:06 ; Admin Dose 15 MG; Start 10/25/16 at 18:30 Epoetin Jordon (Epogen (Esrd)) 10,000 units MoWeFr@17 SC ; Start 10/26/16 at 17:00 Amiodarone HCl (Cordarone) 200 mg DAILY PO Last administered on 10/28/16 09:08 ; Admin Dose 200 MG; Start 10/26/16 at 10:00 HINA CASTILLO MD Oct 28, 2016 13:51
--- NOTE | 2016-10-28 14:28 | CONS ---
Date/Time of Note Date/Time of Note DATE: 10/28/16 TIME: 14:27 Consult Date/Type/Reason Admit Date/Time Oct 25, 2016 at 13:48 Initial Consult Date 10/26/16 Type of Consultation: Pulmonary ICU Ordering Provider: HINA CASTILLO MD Subjective Patient's breathing somewhat better today. Objective Vital Signs Date Time Temp Pulse Resp B/P Pulse Ox O2 Delivery O2 Flow Rate FiO2 10/28/16 12:23 74 10/28/16 11:53 98.3 19 129/58 96 10/28/16 08:16 2.0 10/28/16 08:16 Nasal Cannula Intake and Output 10/27/16 10/27/16 10/28/16 14:59 22:59 06:59 Intake Total 500 ml 850 ml 240 ml Output Total 3000 ml Balance -2500 ml 850 ml 240 ml Exam GENERAL: elderly [place] gentleman comfortable at rest VITAL SIGNS: per chart NECK: Supple. No JVD or lymphadenopathy. CARDIAC EXAM: S1, S2. No added sounds or murmurs. CHEST: Diminished air entry bilaterally ABDOMEN: Soft, nontender. No guarding or rebound. EXTREMITIES: No cyanosis, clubbing or edema. NEUROLOGIC: Generalized weakness. No focal deficits. Results/Medications Result Diagram: 10/28/16 0804 10/28/16 0805 Results 24 hrs Laboratory Tests Test 10/27/16 17:39 10/28/16 07:46 10/28/16 08:04 10/28/16 08:05 Bedside Glucose 102 123 White Blood Count 7.4 Red Blood Count 3.31 L Hemoglobin 10.1 L Hematocrit 31.3 L Mean Corpuscular Volume 94.6 Mean Corpuscular Hemoglobin 30.5 Mean Corpuscular Hemoglobin Concent 32.3 Red Cell Distribution Width 15.3 H Platelet Count 161 Mean Platelet Volume 10.2 Neutrophils % 66.3 Lymphocytes % 24.4 Monocytes % 7.3 Eosinophils % 1.2 Basophils % 0.1 Nucleated Red Blood Cells % 0.0 Neutrophils # 4.9 Lymphocytes # 1.8 Monocytes # 0.5 Eosinophils # 0.1 Basophils # 0.0 Nucleated Red Blood Cells # 0.0 Sodium Level 138 Potassium Level 4.2 Chloride Level 92 L Carbon Dioxide Level 31 Anion Gap 19 H Blood Urea Nitrogen 54 H Creatinine 5.86 H Glucose Level 122 Calcium Level 8.5 Test 10/28/16 11:35 Bedside Glucose 83 Medications Current Medications Acetaminophen (Tylenol Tab) 650 mg Q6H PRN PO PAIN AND OR ELEVATED TEMP; Start 10/25/16 at 17:00 Aspirin (Aspirin) 81 mg DAILY PO Last administered on 10/27/16 11:44; Admin Dose 81 MG; Start 10/25/16 at 17:00 Carvedilol (Coreg) 12.5 mg BID PO Last administered on 10/26/16 20:54; Admin Dose 12.5 MG; Start 10/25/16 at 21:00 Clonidine (Catapres) 0.1 mg TID PO Last administered on 10/28/16 09:09; Admin Dose 0.1 MG; Start 10/25/16 at 21:00 Docusate Sodium (Colace) 100 mg Q12 PO Last administered on 10/28/16 09:07; Admin Dose 100 MG; Start 10/25/16 at 21:00 Minoxidil (Loniten) 5 mg BID PO Last administered on 10/26/16 20:54; Admin Dose 5 MG; Start 10/25/16 at 21:00 Multivit/Ca Carb/ B Cmplx/FA/Prenat (Katlyn-Michael) 1 tab DAILY PO Last administered on 10/28/16 09:06; Admin Dose 1 TAB; Start 10/25/16 at 18:00 Nifedipine (Procardia Xl) 30 mg BID PO Last administered on 10/28/16 09:06; Admin Dose 30 MG; Start 10/25/16 at 21:00 Pantoprazole (Protonix Tab) 40 mg DAILY@06 PO Last administered on 10/28/16 06 :14; Admin Dose 40 MG; Start 10/26/16 at 06:00 Salmeterol Xinafoate/ Fluticasone (Advair 500/50 Diskus) 1 inh BID INH Last administered on 10/28/16 09:10; Admin Dose 1 INH; Start 10/25/16 at 21:00 Senna (Senokot) 1 tab DAILY PRN PO CONSTIPATION; Start 10/25/16 at 17:00 Tamsulosin HCl (Flomax) 0.4 mg HS PO Last administered on 10/27/16 21:27; Admin Dose 0.4 MG; Start 10/25/16 at 21:00 Tiotropium [place] (Spiriva) 1 inh BID INH Last administered on 10/28/16 09:10 ; Admin Dose 1 INH; Start 10/25/16 at 21:00 Valsartan (Diovan) 320 mg DAILY PO ; Start 10/26/16 at 09:00 Miscellaneous Information 1 ea NOTE XX ; Start 10/25/16 at 17:30 Glucose (Glutose) 15 gm Q15M PRN PO DECREASED GLUCOSE; Start 10/25/16 at 17:30 Glucose (Glutose) 22.5 gm Q15M PRN PO DECREASED GLUCOSE; Start 10/25/16 at 17: 30 Dextrose (D50w Syringe) 25 ml Q15M PRN IV DECREASED GLUCOSE; Start 10/25/16 at 17:30 Dextrose (D50w Syringe) 50 ml Q15M PRN IV DECREASED GLUCOSE; Start 10/25/16 at 17:30 Glucagon (Glucagen) 1 mg Q15M PRN IM DECREASED GLUCOSE; Start 10/25/16 at 17:30 Glucose (Glutose) 15 gm Q15M PRN BUCCAL DECREASED GLUCOSE; Start 10/25/16 at 17 :30 Prednisolone (Prednisolone) 15 mg DAILY PO Last administered on 10/28/16 09:06 ; Admin Dose 15 MG; Start 10/25/16 at 18:30 Epoetin Jordon (Epogen (Esrd)) 10,000 units MoWeFr@17 SC ; Start 10/26/16 at 17:00 Amiodarone HCl (Cordarone) 200 mg DAILY PO Last administered on 10/28/16 09:08 ; Admin Dose 200 MG; Start 10/26/16 at 10:00 Assessment/Plan Chief Complaint/Hosp Course Assessment 1. Progressive hypoxemic respiratory failure secondary to volume overload, CT chest when euvolemic. 2. End-stage renal failure on hemodialysis, 3. History of coronary artery disease status post coronary artery bypass graft surgery 4. History of essential hypertension Recommendations 1. More aggressive volume removal during hemodialysis 2. Ongoing pulmonary edema. Clinically improved 3. Supplemental O2 as needed, will arrange outpatient sleep study and CPAP. 4. Encourage ambulation 5. DVT and GI prophylaxis Problems: CARLEEN MORGAN MD, [facility] Oct 28, 2016 14:28
[2016-10-28] MEDS: VALSARTAN 160 MG TAB PO SCH (16:18)
[2016-10-28] MEDS: EPOETIN 10000 UNITS/1 ML INJ (ESRD) SC SCH (16:29)
--- NOTE | 2016-10-28 18:00 | CONS ---
Date/Time of Note Date/Time of Note DATE: 10/28/16 TIME: 17:57 Assessment/Plan Assessment/Plan Chief Complaint/Hosp Course NSVT - review of tele shows PVCs, 3-4 beat runs of NSVT, no sustained episode. does have previous hx of this as well with iHD. - cont tele monitoring - cont carvedilol- pt refusing medication, difficult to titrate HTN- high on admission, ? pt compliance. pt refusing meds per rn - cont home regimen, coreg/valsartan/nifedipine - please d/w pt importance of med compliance CAD - stable, trop neg - cont statin - asa 81mg daily Acute on chronic diastolic HF- difficult fluid mgmt with iHD, likely elevated bp /noncompliance contributing - symptomatically improved - cont fluid removal as tolerated - bp control as above Anemia- likely from ESRD please contact if ?s. Problems: Consultation Date/Type/Reason Admit Date/Time Oct 25, 2016 at 13:48 Initial Consult Date 10/26/16 Type of Consultation: card Referring Provider: HINA CASTILLO MD 24 HR Interval Summary Free Text/Dictation had iHD yesterday, no VT during session, no palp, cp. sob stable tele reviewed: pvcs, nsr Detailed Summary Respiratory: shortness of breath Cardiovascular: no complaints Gastrointestinal: no complaints Exam/Review of Systems Vital Signs Vitals Vital Signs Date Time Temp Pulse Resp B/P Pulse Ox O2 Delivery O2 Flow Rate FiO2 10/28/16 16:12 70 10/28/16 15:45 98.0 19 150/72 98 10/28/16 08:16 2.0 10/28/16 08:16 Nasal Cannula Intake and Output 10/27/16 10/27/16 10/28/16 14:59 22:59 06:59 Intake Total 500 ml 850 ml 240 ml Output Total 3000 ml Balance -2500 ml 850 ml 240 ml Exam Constitutional: alert, oriented Psych: nl mood/affect, no complaints Head: atraumatic, normocephalic Eyes: EOMI, nl conjunctiva ENMT: nl external ears & nose, nl lips & teeth, nl nasal mucosa & septum Neck: non-tender, supple, No jvd Respiratory: crackles in bases Cardiovascular: nl pulses, regular rate and rhythm, systolic murmur, No S3, No S4, No bruits, No diastolic murmur, No irregular rhythm, No jugular venous distention (JVD) Gastrointestinal: non-tender, soft Musculoskeletal: nl extremities to inspection, nl gait and stance Extremities: normal pulses 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, nl mental status, nl speech, nl strength Results Result Diagram: 10/28/16 0804 10/28/16 0805 Results 24 hrs Laboratory Tests Test 10/28/16 07:46 10/28/16 08:04 10/28/16 08:05 10/28/16 11:35 Bedside Glucose 123 83 White Blood Count 7.4 Red Blood Count 3.31 L Hemoglobin 10.1 L Hematocrit 31.3 L Mean Corpuscular Volume 94.6 Mean Corpuscular Hemoglobin 30.5 Mean Corpuscular Hemoglobin Concent 32.3 Red Cell Distribution Width 15.3 H Platelet Count 161 Mean Platelet Volume 10.2 Neutrophils % 66.3 Lymphocytes % 24.4 Monocytes % 7.3 Eosinophils % 1.2 Basophils % 0.1 Nucleated Red Blood Cells % 0.0 Neutrophils # 4.9 Lymphocytes # 1.8 Monocytes # 0.5 Eosinophils # 0.1 Basophils # 0.0 Nucleated Red Blood Cells # 0.0 Sodium Level 138 Potassium Level 4.2 Chloride Level 92 L Carbon Dioxide Level 31 Anion Gap 19 H Blood Urea Nitrogen 54 H Creatinine 5.86 H Glucose Level 122 Calcium Level 8.5 Test 10/28/16 16:40 Bedside Glucose 172 Medications Medications Current Medications Acetaminophen (Tylenol Tab) 650 mg Q6H PRN PO PAIN AND OR ELEVATED TEMP; Start 10/25/16 at 17:00 Aspirin (Aspirin) 81 mg DAILY PO Last administered on 10/27/16 11:44; Admin Dose 81 MG; Start 10/25/16 at 17:00 Carvedilol (Coreg) 12.5 mg BID PO Last administered on 10/26/16 20:54; Admin Dose 12.5 MG; Start 10/25/16 at 21:00 Clonidine (Catapres) 0.1 mg TID PO Last administered on 10/28/16 09:09; Admin Dose 0.1 MG; Start 10/25/16 at 21:00 Docusate Sodium (Colace) 100 mg Q12 PO Last administered on 10/28/16 09:07; Admin Dose 100 MG; Start 10/25/16 at 21:00 Minoxidil (Loniten) 5 mg BID PO Last administered on 10/26/16 20:54; Admin Dose 5 MG; Start 10/25/16 at 21:00 Multivit/Ca Carb/ B Cmplx/FA/Prenat (Katlyn-Michael) 1 tab DAILY PO Last administered on 10/28/16 09:06; Admin Dose 1 TAB; Start 10/25/16 at 18:00 Nifedipine (Procardia Xl) 30 mg BID PO Last administered on 10/28/16 09:06; Admin Dose 30 MG; Start 10/25/16 at 21:00 Pantoprazole (Protonix Tab) 40 mg DAILY@06 PO Last administered on 10/28/16 06 :14; Admin Dose 40 MG; Start 10/26/16 at 06:00 Salmeterol Xinafoate/ Fluticasone (Advair 500/50 Diskus) 1 inh BID INH Last administered on 10/28/16 09:10; Admin Dose 1 INH; Start 10/25/16 at 21:00 Senna (Senokot) 1 tab DAILY PRN PO CONSTIPATION; Start 10/25/16 at 17:00 Tamsulosin HCl (Flomax) 0.4 mg HS PO Last administered on 10/27/16 21:27; Admin Dose 0.4 MG; Start 10/25/16 at 21:00 Tiotropium [place] (Spiriva) 1 inh BID INH Last administered on 10/28/16 09:10 ; Admin Dose 1 INH; Start 10/25/16 at 21:00 Valsartan (Diovan) 320 mg DAILY PO Last administered on 10/28/16 16:18; Admin Dose 160 MG; Start 10/26/16 at 09:00 Miscellaneous Information 1 ea NOTE XX ; Start 10/25/16 at 17:30 Glucose (Glutose) 15 gm Q15M PRN PO DECREASED GLUCOSE; Start 10/25/16 at 17:30 Glucose (Glutose) 22.5 gm Q15M PRN PO DECREASED GLUCOSE; Start 10/25/16 at 17: 30 Dextrose (D50w Syringe) 25 ml Q15M PRN IV DECREASED GLUCOSE; Start 10/25/16 at 17:30 Dextrose (D50w Syringe) 50 ml Q15M PRN IV DECREASED GLUCOSE; Start 10/25/16 at 17:30 Glucagon (Glucagen) 1 mg Q15M PRN IM DECREASED GLUCOSE; Start 10/25/16 at 17:30 Glucose (Glutose) 15 gm Q15M PRN BUCCAL DECREASED GLUCOSE; Start 10/25/16 at 17 :30 Prednisolone (Prednisolone) 15 mg DAILY PO Last administered on 10/28/16 09:06 ; Admin Dose 15 MG; Start 10/25/16 at 18:30 Epoetin Jordon (Epogen (Esrd)) 10,000 units MoWeFr@17 SC ; Start 10/26/16 at 17:00 Amiodarone HCl (Cordarone) 200 mg DAILY PO Last administered on 10/28/16 09:08 ; Admin Dose 200 MG; Start 10/26/16 at 10:00 Procedures Procedures tele per hpi, cxr report reviewed TATA CAVANAUGH Oct 28, 2016 18:00
--- NOTE | 2016-10-28 18:14 | CONS ---
Date/Time of Note Date/Time of Note DATE: 10/28/16 TIME: 18:14 Assessment/Plan Assessment/Plan Chief Complaint/Hosp Course Anemia - CHRONIC, MULTIFACTORIAL, COMPENSATED AT PRESENT +COMPONENT ACD AND IRON DEFICIENCY CONT TO MONITOR BLOOD COUNT CLOSELY OBSERVE FOR BLEEDING AND HEMOLYSIS TRANSFUSE NEEDED EPO WITH HD post EGD 5.17- Mild reflux esophagitis. Antral gastritis. Fundal nodular gastritis. LEUKOCYTOSIS REACTIVE MONITOR CLOSELY NOTE THAT PT IS not ON STEROIDS THROMBOCYTOPENIA- IMPROVED CONT TO MONITOR End-stage renal disease, hemodialysis dependent. Right chest Perm-A-Cath. Chronic obstructive pulmonary disease exacerbation. Tachycardia- h/o svt, nsvt HTN-. CAD - stable, s/p PCI 12/2015 with IZABELLA x 1 to RCA, no change on 01/2016 cath, small d2, managed medically Acute on chronic diastolic HF- difficult fluid mgmt with iHD Interstitial and COPD, rx with daily steroids (po) HX Acute respiratory failure HX Pneumonia Problems: Consultation Date/Type/Reason Admit Date/Time Oct 25, 2016 at 13:48 Type of Consultation: hemeon Referring Provider: HINA CASTILLO MD 24 HR Interval Summary Free Text/Dictation all noted count stable no bleeding Exam/Review of Systems Vital Signs Vitals Vital Signs Date Time Temp Pulse Resp B/P Pulse Ox O2 Delivery O2 Flow Rate FiO2 10/28/16 16:12 70 10/28/16 15:45 98.0 19 150/72 98 10/28/16 08:16 2.0 10/28/16 08:16 Nasal Cannula Intake and Output 10/27/16 10/27/16 10/28/16 15:00 23:00 07:00 Intake Total 500 ml 850 ml 240 ml Output Total 3000 ml Balance -2500 ml 850 ml 240 ml Exam Constitutional: alert, distress, oriented, well developed, No frail, No non-verbal, No obese, No other Psych: anxiety, confusion, depression, No nl mood/affect, No no complaints, No other, No suicidal Head: atraumatic, No hematomas, No lacerations, No normocephalic, No other Eyes: EOMI, PERRL, nl lids, No fundi, disc, No icteric, No nl conjunctiva, No nl sclera, No other ENMT: No intubated, No mucosa pink and moist, No nl external ears & nose, No nl lips & teeth, No nl nasal mucosa & septum, No other, No tympanic membranes Neck: bruits, jvd, nuchal rigidity, No masses, No non-tender, No other, No supple, No thyromegaly Respiratory: congested cough, crackles/rales, diminished breath sounds, intercostal retraction, labored breathing, No clear to auscultation, No normal air movement, No other, No respirations, No tactile fremitus, No wheezing Cardiovascular: bruits, edema, irregular rhythm, jugular venous distention (JVD ), rub, systolic murmur, No S3, No S4, No diastolic murmur, No gallop, No murmurs/extra sounds, No nl pulses, No other, No regular rate and rhythm Gastrointestinal: bowel sounds, distended, rebound or guarding, No ascites, No firm, No hepatomegaly, No mass, No nl liver, spleen, No non- tender, No other, No soft, No splenomegaly, No surgical scars, No tender Genitourinary - Male: No CVA tenderness, No discharge, No nl penis, No nl scrotum, No other Musculoskeletal: joint tenderness, muscle tone, muscle weakness, No nl extremities to inspection, No nl gait and stance, No other, No range of motion, No spine non-tender, No swelling Extremities: calf tenderness, tenderness Neurological: FIRST ASSISTANT II-XII intact, confused, numbness, other (Anxious, tense, in resp. disstress.) Results Result Diagram: 10/28/16 0804 10/28/16 0805 Results 24 hrs Laboratory Tests Test 10/28/16 07:46 10/28/16 08:04 10/28/16 08:05 10/28/16 11:35 Bedside Glucose 123 83 White Blood Count 7.4 Red Blood Count 3.31 L Hemoglobin 10.1 L Hematocrit 31.3 L Mean Corpuscular Volume 94.6 Mean Corpuscular Hemoglobin 30.5 Mean Corpuscular Hemoglobin Concent 32.3 Red Cell Distribution Width 15.3 H Platelet Count 161 Mean Platelet Volume 10.2 Neutrophils % 66.3 Lymphocytes % 24.4 Monocytes % 7.3 Eosinophils % 1.2 Basophils % 0.1 Nucleated Red Blood Cells % 0.0 Neutrophils # 4.9 Lymphocytes # 1.8 Monocytes # 0.5 Eosinophils # 0.1 Basophils # 0.0 Nucleated Red Blood Cells # 0.0 Sodium Level 138 Potassium Level 4.2 Chloride Level 92 L Carbon Dioxide Level 31 Anion Gap 19 H Blood Urea Nitrogen 54 H Creatinine 5.86 H Glucose Level 122 Calcium Level 8.5 Test 10/28/16 16:40 Bedside Glucose 172 Medications Medications Current Medications Acetaminophen (Tylenol Tab) 650 mg Q6H PRN PO PAIN AND OR ELEVATED TEMP; Start 10/25/16 at 17:00 Aspirin (Aspirin) 81 mg DAILY PO Last administered on 10/27/16 11:44; Admin Dose 81 MG; Start 10/25/16 at 17:00 Carvedilol (Coreg) 12.5 mg BID PO Last administered on 10/26/16 20:54; Admin Dose 12.5 MG; Start 10/25/16 at 21:00 Clonidine (Catapres) 0.1 mg TID PO Last administered on 10/28/16 09:09; Admin Dose 0.1 MG; Start 10/25/16 at 21:00 Docusate Sodium (Colace) 100 mg Q12 PO Last administered on 10/28/16 09:07; Admin Dose 100 MG; Start 10/25/16 at 21:00 Minoxidil (Loniten) 5 mg BID PO Last administered on 10/26/16 20:54; Admin Dose 5 MG; Start 10/25/16 at 21:00 Multivit/Ca Carb/ B Cmplx/FA/Prenat (Katlyn-Michael) 1 tab DAILY PO Last administered on 10/28/16 09:06; Admin Dose 1 TAB; Start 10/25/16 at 18:00 Nifedipine (Procardia Xl) 30 mg BID PO Last administered on 10/28/16 09:06; Admin Dose 30 MG; Start 10/25/16 at 21:00 Pantoprazole (Protonix Tab) 40 mg DAILY@06 PO Last administered on 10/28/16 06 :14; Admin Dose 40 MG; Start 10/26/16 at 06:00 Salmeterol Xinafoate/ Fluticasone (Advair 500/50 Diskus) 1 inh BID INH Last administered on 10/28/16 09:10; Admin Dose 1 INH; Start 10/25/16 at 21:00 Senna (Senokot) 1 tab DAILY PRN PO CONSTIPATION; Start 10/25/16 at 17:00 Tamsulosin HCl (Flomax) 0.4 mg HS PO Last administered on 10/27/16 21:27; Admin Dose 0.4 MG; Start 10/25/16 at 21:00 Tiotropium [place] (Spiriva) 1 inh BID INH Last administered on 10/28/16 09:10 ; Admin Dose 1 INH; Start 10/25/16 at 21:00 Valsartan (Diovan) 320 mg DAILY PO Last administered on 10/28/16 16:18; Admin Dose 160 MG; Start 10/26/16 at 09:00 Miscellaneous Information 1 ea NOTE XX ; Start 10/25/16 at 17:30 Glucose (Glutose) 15 gm Q15M PRN PO DECREASED GLUCOSE; Start 10/25/16 at 17:30 Glucose (Glutose) 22.5 gm Q15M PRN PO DECREASED GLUCOSE; Start 10/25/16 at 17: 30 Dextrose (D50w Syringe) 25 ml Q15M PRN IV DECREASED GLUCOSE; Start 10/25/16 at 17:30 Dextrose (D50w Syringe) 50 ml Q15M PRN IV DECREASED GLUCOSE; Start 10/25/16 at 17:30 Glucagon (Glucagen) 1 mg Q15M PRN IM DECREASED GLUCOSE; Start 10/25/16 at 17:30 Glucose (Glutose) 15 gm Q15M PRN BUCCAL DECREASED GLUCOSE; Start 10/25/16 at 17 :30 Prednisolone (Prednisolone) 15 mg DAILY PO Last administered on 10/28/16 09:06 ; Admin Dose 15 MG; Start 10/25/16 at 18:30 Epoetin Jordon (Epogen (Esrd)) 10,000 units MoWeFr@17 SC ; Start 10/26/16 at 17:00 Amiodarone HCl (Cordarone) 200 mg DAILY PO Last administered on 10/28/16 09:08 ; Admin Dose 200 MG; Start 10/26/16 at 10:00 ANDRE SMITH MD Oct 28, 2016 18:14
[2016-10-28] MEDS: TAMSULOSIN (SR) 0.4 MG CAP PO SCH (20:46)
[2016-10-29] VITALS (16 sets, daily range): BP systolic 91–196; BP diastolic 49–74; PULSE 60–70; RESP 16–20
[2016-10-29] MEDS ORDERED: LORAZEPAM 1 MG TAB PO ONE (01:00)
[2016-10-29 07:19] LABS: ADD SCAN DIFF NO
[2016-10-29 07:21] LABS: BASOPHILS % 0.1 % (0.0-2.0); EOSINOPHILS # 0.1 10^3/ul (0.0-0.5); EOSINOPHILS % 0.9 % (0.0-7.0); HEMATOCRIT 28.3 % (42.0-52.0); HEMOGLOBIN 9.5 g/dl (14.0-18.0); LYMPHOCYTES # 1.9 10^3/ul (0.8-2.9); MEAN CORPUSCULAR HEMOGLOBIN 30.7 pg (29.0-33.0); MEAN CORPUSCULAR HGB CONC 33.6 g/dl (32.0-37.0); MEAN CORPUSCULAR VOLUME 91.6 fl (82.0-101.0); MEAN PLATELET VOLUME 10.2 fl (7.4-10.4); MONOCYTE # 0.6 10^3/ul (0.3-0.9); NEUTROPHIL # 6.5 10^3/ul (1.6-7.5); NEUTROPHILS % 70.5 % (39.0-77.0); PLATELET COUNT 179 10^3/UL (140-415); RED BLOOD COUNT 3.09 10^6/ul (4.70-6.10); RED CELL DISTRIBUTION WIDTH 14.9 % (11.5-14.5); WHITE BLOOD COUNT 9.2 10^3/ul (4.8-10.8)
[2016-10-29] MEDS: INSULIN ASPART [NOVOLOG] 3 ML PEN SC SCH ×2 (07:30→11:20)
--- NOTE | 2016-10-29 07:30 | DS ---
Date/Time of Note Date/Time of Note DATE: 10/29/16 TIME: 07:20 Discharge Summary Admission/Discharge Info Admit Date/Time Oct 25, 2016 at 13:48 Discharge Date/Time Significant improvement of condition after 3 HD's; Sleep study and BIPAP Rx continuation discussed with . BIPAP was taken awaY FROM HOME. i BELIVE significant part of worsening of his condition was the lack of BIPAP at home. Resceduled sleep study. COndinue to be in sob, severely weak depressed but with improved condition. Discussed with . Discharge Diagnosis 1.Pulmonary edema. 2.Fluid overload 3.CKD on HD, last one yesterday.2. Hematuria.Was on home steroids now 8 mg qd more than 4 months. Noncompliance.Discuses with .Chronic metabolic acidosis with hypocapnia. 4.Grief reaction after the of a .Major depression with anxiety and memory impairment wit sleep disturbance. 5. Anxiety, depression with dissatisfaction 6. Diabetes type 2-better controlled 7. Osteoarthritis. 8. Anemia of chronic disease 9. Status post multiple units of packed red blood cell transfusions-now getting more.. 10. Weight loss-more than 60lb in 11 months. 11. Hypertension-better controlled. 12. Memory impairment. 13. Major depression. 14. Back pain. 15. Benign prostatic hypertrophy. 16. S/P left forearm a/v shunt placement for dialysis-functions well , not mature yet. 17. S/P right Jugular vein cannulation for dialysis-no signs of infection. 18. Hypoxemia with hypercapnia(Hx of) on home 02 and BIPAP. 19. Anxiety; borderline personality; 20. Excessive thirst. 21. Constipation 22.Chest pain during HD today frequently(s/p 2 angiographies and stenting)cardiology consult. 23.Terminally ill with inability to decide DNR status. He refused to answer. Macario I received a modesto from RN that he agreed for DNR and DNI. 24.Incomplete data.Sleep study with expected BIPAP RX will be pursued. 25.NSVT: cadiology f/u with continuation of Cordarone 200 mg qd. Patient Condition: Serious Consults Dr.Vadgama Elkins. Hospital Course NSVT - review of tele shows PVCs, 3-4 beat runs of NSVT, no sustained episode. does have previous hx of this as well with iHD. - cont tele monitoring - cont carvedilol- pt refusing medication, difficult to titrate HTN- high on admission, ? pt compliance. pt refusing meds per rn - cont home regimen, coreg/valsartan/nifedipine - please d/w pt importance of med compliance CAD - stable, trop neg - cont statin - asa 81mg daily Acute on chronic diastolic HF- difficult fluid mgmt with iHD, likely elevated bp /noncompliance contributing - symptomatically improved - cont fluid removal as tolerated - bp control as above Anemia- likely from ESRD please contact if ?s. Home Meds Active Scripts Aspirin (Aspirin) 81 Mg Chew, 81 MG PO DAILY for 30 Days, #30 TAB Prov:HINA CASTILLO MD 09/22/16 Valsartan* (Diovan*) 160 Mg Tablet, 320 MG PO DAILY for 30 Days, #30 TAB HOLD IF SBP<110;HR Prov:HINA CASTILLO MD 09/22/16 Calcium Acetate* (Calcium Acetate*) 667 Mg Capsule, 667 MG PO WITH MEALS for 30 Days, #30 CAP Prov:HINA CASTILLO MD 09/22/16 Tiotropium [place]* (Spiriva*) 18 Mcg Cap.w.dev, 1 INH INH BID for 30 Days, #60 CAP Prov:HINA CASTILLO MD 09/22/16 Nifedipine (Procardia Xl) 30 Mg Tab.er.24, 30 MG PO BID for 30 Days, #30 TAB Prov:HINA CASTILLO MD 09/22/16 Minoxidil* (Lonitin*) 2.5 Mg Tab, 5 MG PO BID for 30 Days, #60 TAB Prov:HINA CASTILLO MD 09/22/16 Clonidine Hcl* (Clonidine Hcl*) 0.1 Mg Tab, 0.1 MG PO TID for 30 Days, #90 TAB Prov:HINA CASTILLO MD 09/22/16 Carvedilol* (Carvedilol*) 12.5 Mg Tablet, 12.5 MG PO BID for 30 Days, #60 TAB Prov:HINA CASTILLO MD 09/22/16 Albuterol Sulfate* (Albuterol Sulfate* Neb) 0.083%-3 Ml Neb, 2.5 MG HHN Q6HWA RESP THERAPY for 30 Days, #90 BLIST PACK Prov:HINA CASTILLO MD 09/22/16 Acetaminophen* (Tylenol*) 325 Mg Tablet, 650 MG PO Q6H Y for PAIN AND OR ELEVATED TEMP for 30 Days, #90 TAB Prov:HINA CASTILLO MD 09/22/16 Tamsulosin Hcl* (Tamsulosin Hcl*) 0.4 Mg Cap.er.24h, 0.4 MG PO HS for 30 Days, # 30 CAP Prov:HINA CASTILLO MD 09/22/16 Salmeterol Xinaf-Fluticasone* (Advair*) 500/50 Diskus Inhaler, 1 INH INH BID for 30 Days, #1 CAP.EC Prov:HINA CASTILLO MD 04/28/16 Pantoprazole* (Pantoprazole*) 40 Mg Tablet.dr, 40 MG PO DAILY@06 for 30 Days, # 30 BOX Prov:HINA CASTILLO MD 04/28/16 Reported Medications Prednisolone* (Prelone*) 15 Mg/5 Ml Solution, 15 MG PO DAILY, ML 06/02/16 Multivit/Ca Carb/B Cmplx/Fa* (Katlyn-Michael*) 1 Tab Tab, 1 TAB PO DAILY, TAB 06/02/16 Insulin Aspart (Novolog) 100 Unit/1 Ml Cartridge, 0 SQ SLIDING SCALE BEFORE MEALS; 200-250=2 UNITS, 251-300=4 UNITS, 301-350=6 UNITS, 351-400=8 UNITS,>400=10 UNITS AND CALL 06/02/16 Docusate Sodium* (Docusate Sodium*) 100 Mg Capsule, 100 MG PO Q12, #60 CAP 06/02/16 Sennosides* (Senna Lax*) 8.6 Mg Tablet, 1 TAB PO DAILY Y for CONSTIPATION, TAB 01/13/16 Levothyroxine Sodium* (Levothyroxine Sodium*) 125 Mcg Tablet, 125 MCG PO BEFORE BREAKFAST, #30 TAB 11/28/15 Follow-up Plan HD clinic in 1-2 days. in 5 days or prn. in 1 day. in 2 days. Primary Care Provider Hina Castillo MD Time spent on discharge: > 30 minutes Pending Labs Laboratory Tests Test 10/28/16 07:46 10/28/16 08:04 10/28/16 08:05 10/28/16 11:35 Bedside Glucose 123mg/dL (70-220) 83mg/dL (70-220) White Blood Count 7.410^3/ul (4.8-10.8) Red Blood Count 3.3110^6/ul (4.70-6.10) Hemoglobin 10.1g/dl (14.0-18.0) Hematocrit 31.3% (42.0-52.0) Mean Corpuscular Volume 94.6fl (82.0-101.0) Mean Corpuscular Hemoglobin 30.5pg (29.0-33.0) Mean Corpuscular Hemoglobin Concent 32.3g/dl (32.0-37.0) Red Cell Distribution Width 15.3% (11.5-14.5) Platelet Count 94601^3/UL (140-415) Mean Platelet Volume 10.2fl (7.4-10.4) Neutrophils % 66.3% (39.0-77.0) Lymphocytes % 24.4% (15.0-51.0) Monocytes % 7.3% (0.0-11.0) Eosinophils % 1.2% (0.0-7.0) Basophils % 0.1% (0.0-2.0) Nucleated Red Blood Cells % 0.0/100WBC (0.0-0.0) Neutrophils # 4.910^3/ul (1.6-7.5) Lymphocytes # 1.810^3/ul (0.8-2.9) Monocytes # 0.510^3/ul (0.3-0.9) Eosinophils # 0.110^3/ul (0.0-0.5) Basophils # 0.010^3/ul (0.0-0.1) Nucleated Red Blood Cells # 0.010^3/ul (0.0-0.0) Sodium Level 138mmol/L (135-144) Potassium Level 4.2mmol/L (3.5-5.1) Chloride Level 92mmol/L (97-110) Carbon Dioxide Level 31mmol/L (21-31) Anion Gap 19 (8-16) Blood Urea Nitrogen 54mg/dl (7-20) Creatinine 5.86mg/dl (0.61-1.24) Glucose Level 122mg/dl (70-220) Calcium Level 8.5mg/dl (8.4-10.2) Test 10/28/16 16:40 Bedside Glucose 172mg/dL (70-220) HINA CASTILLO MD Oct 29, 2016 07:30
--- NOTE | 2016-10-29 07:53 | CONS ---
Date/Time of Note Date/Time of Note DATE: 10/29/16 TIME: 07:51 Assessment/Plan Assessment/Plan Additional Assessment/Plan 1. CKD, to have HD today 2. CHF has resolved, with know CAD 3. Anemia is stable 4. BP is labile, will need to inc Beta alexis and Loniten if BP remains elevated 5. OK to dc, rev with IM Consultation Date/Type/Reason Admit Date/Time Oct 25, 2016 at 13:48 Initial Consult Date 10/26/16 [facility] Referring Provider: HINA CASTILLO MD Detailed Summary Respiratory: shortness of breath (is mild and mild cough that is not productive ) Cardiovascular: No chest pain Gastrointestinal: no complaints Genitourinary: no complaints Exam/Review of Systems Vital Signs Vitals Vital Signs Date Time Temp Pulse Resp B/P Pulse Ox O2 Delivery O2 Flow Rate FiO2 10/29/16 04:07 68 10/29/16 00:00 97.5 20 196/74 100 10/28/16 19:57 Nasal Cannula 2.0 Intake and Output 10/28/16 10/28/16 10/29/16 15:00 23:00 07:00 Intake Total 500 ml 300 ml Balance 500 ml 300 ml Exam Neck: No jvd Respiratory: diminished breath sounds (and same dry rales at bases) Cardiovascular: regular rate and rhythm, No S3, No S4 Gastrointestinal: soft Extremities: No edema Results Result Diagram: 10/29/16 0701 10/28/16 0805 Results 24 hrs Laboratory Tests Test 10/28/16 08:04 10/28/16 08:05 10/28/16 11:35 10/28/16 16:40 White Blood Count 7.4 Red Blood Count 3.31 L Hemoglobin 10.1 L Hematocrit 31.3 L Mean Corpuscular Volume 94.6 Mean Corpuscular Hemoglobin 30.5 Mean Corpuscular Hemoglobin Concent 32.3 Red Cell Distribution Width 15.3 H Platelet Count 161 Mean Platelet Volume 10.2 Neutrophils % 66.3 Lymphocytes % 24.4 Monocytes % 7.3 Eosinophils % 1.2 Basophils % 0.1 Nucleated Red Blood Cells % 0.0 Neutrophils # 4.9 Lymphocytes # 1.8 Monocytes # 0.5 Eosinophils # 0.1 Basophils # 0.0 Nucleated Red Blood Cells # 0.0 Sodium Level 138 Potassium Level 4.2 Chloride Level 92 L Carbon Dioxide Level 31 Anion Gap 19 H Blood Urea Nitrogen 54 H Creatinine 5.86 H Glucose Level 122 Calcium Level 8.5 Bedside Glucose 83 172 Test 10/29/16 07:01 White Blood Count 9.2 # Red Blood Count 3.09 L Hemoglobin 9.5 L Hematocrit 28.3 L Mean Corpuscular Volume 91.6 Mean Corpuscular Hemoglobin 30.7 Mean Corpuscular Hemoglobin Concent 33.6 Red Cell Distribution Width 14.9 H Platelet Count 179 Mean Platelet Volume 10.2 Neutrophils % 70.5 Lymphocytes % 21.0 Monocytes % 7.0 Eosinophils % 0.9 Basophils % 0.1 Nucleated Red Blood Cells % 0.0 Neutrophils # 6.5 Lymphocytes # 1.9 Monocytes # 0.6 Eosinophils # 0.1 Basophils # 0.0 Nucleated Red Blood Cells # 0.0 Medications Medications Current Medications Acetaminophen (Tylenol Tab) 650 mg Q6H PRN PO PAIN AND OR ELEVATED TEMP; Start 10/25/16 at 17:00 Aspirin (Aspirin) 81 mg DAILY PO Last administered on 10/27/16 11:44; Admin Dose 81 MG; Start 10/25/16 at 17:00 Carvedilol (Coreg) 12.5 mg BID PO Last administered on 10/28/16 20:46; Admin Dose 12.5 MG; Start 10/25/16 at 21:00 Clonidine (Catapres) 0.1 mg TID PO Last administered on 10/28/16 20:45; Admin Dose 0.1 MG; Start 10/25/16 at 21:00 Docusate Sodium (Colace) 100 mg Q12 PO Last administered on 10/28/16 20:45; Admin Dose 100 MG; Start 10/25/16 at 21:00 Minoxidil (Loniten) 5 mg BID PO Last administered on 10/28/16 20:46; Admin Dose 5 MG; Start 10/25/16 at 21:00 Multivit/Ca Carb/ B Cmplx/FA/Prenat (Katlyn-Michael) 1 tab DAILY PO Last administered on 10/28/16 09:06; Admin Dose 1 TAB; Start 10/25/16 at 18:00 Nifedipine (Procardia Xl) 30 mg BID PO Last administered on 10/28/16 20:45; Admin Dose 30 MG; Start 10/25/16 at 21:00 Pantoprazole (Protonix Tab) 40 mg DAILY@06 PO Last administered on 10/28/16 06 :14; Admin Dose 40 MG; Start 10/26/16 at 06:00 Salmeterol Xinafoate/ Fluticasone (Advair 500/50 Diskus) 1 inh BID INH Last administered on 10/28/16 20:46; Admin Dose 1 INH; Start 10/25/16 at 21:00 Senna (Senokot) 1 tab DAILY PRN PO CONSTIPATION; Start 10/25/16 at 17:00 Tamsulosin HCl (Flomax) 0.4 mg HS PO Last administered on 10/28/16 20:46; Admin Dose 0.4 MG; Start 10/25/16 at 21:00 Tiotropium [place] (Spiriva) 1 inh BID INH Last administered on 10/28/16 09:10 ; Admin Dose 1 INH; Start 10/25/16 at 21:00 Valsartan (Diovan) 320 mg DAILY PO Last administered on 10/28/16 16:18; Admin Dose 160 MG; Start 10/26/16 at 09:00 Miscellaneous Information 1 ea NOTE XX ; Start 10/25/16 at 17:30 Glucose (Glutose) 15 gm Q15M PRN PO DECREASED GLUCOSE; Start 10/25/16 at 17:30 Glucose (Glutose) 22.5 gm Q15M PRN PO DECREASED GLUCOSE; Start 10/25/16 at 17: 30 Dextrose (D50w Syringe) 25 ml Q15M PRN IV DECREASED GLUCOSE; Start 10/25/16 at 17:30 Dextrose (D50w Syringe) 50 ml Q15M PRN IV DECREASED GLUCOSE; Start 10/25/16 at 17:30 Glucagon (Glucagen) 1 mg Q15M PRN IM DECREASED GLUCOSE; Start 10/25/16 at 17:30 Glucose (Glutose) 15 gm Q15M PRN BUCCAL DECREASED GLUCOSE; Start 10/25/16 at 17 :30 Prednisolone (Prednisolone) 15 mg DAILY PO Last administered on 10/28/16 09:06 ; Admin Dose 15 MG; Start 10/25/16 at 18:30 Epoetin Jordon (Epogen (Esrd)) 10,000 units MoWeFr@17 SC ; Start 10/26/16 at 17:00 Amiodarone HCl (Cordarone) 200 mg DAILY PO Last administered on 10/28/16t 09:08 ; Admin Dose 200 MG; Start 10/26/16 at 10:00 TRUE GTZ MD Oct 29, 2016 07:53
[2016-10-29] MEDS: ALBUTEROL 0.083% (NEB) 2.5 MG/3 ML AMP HHN SCH (07:59)
[2016-10-29 08:00] LABS: CALCIUM 8.9 mg/dl (8.4-10.2); CREATININE 7.47 mg/dl (0.61-1.24); POTASSIUM 4.6 mmol/L (3.5-5.1)
[2016-10-29] MEDS ORDERED: AMIO200T2 PO (10:03)
--- NOTE | 2016-10-29 10:56 | CONS ---
DATE OF ADMISSION: 10/25/2016 DATE OF CONSULTATION: 10/26/2016 REASON FOR CONSULTATION: Thank you very much for allowing me to evaluate this 81-year-old male admitted to the hospital with shortness of breath. 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 He was admitted here yesterday with increasing shortness of breath, minimal cough, no wheezing, no chest pain. Denied nausea, vomiting, or abdominal pain. PAST MEDICAL HISTORY: 1. Chronic obstructive pulmonary disease and interstitial lung disease. 2. History of diabetes. 3. Depression. 4. Benign prostatic hypertrophy. 5. Osteoporosis. 6. 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 7. Hypertension. 8. Known coronary disease having had stents placed circa 10 months ago. 9. History of recurrent urinary tract infections. PRESENT MEDICATIONS: 1. Tylenol prn. 2. Albuterol inhaler 2 puffs q.6. 3. Aspirin 81 mg. 4. Phoslo 1 t.i.d. with meals. 5. Coreg 12.5 b.i.d. 6. Clonidine 0.1 t.i.d. 7. Synthroid 125 mcg per day. 8. Nifedipine XL 30 mg b.i.d. 9. Protonix 40 mg per day. 10. Prednisone 15 mg per day. 11. Advair 50/500 one inhalation t.i.d. 12. Senna 1 tablet as needed. 13. Spiriva 1 inhalation b.i.d. 14. Valsartan 320 mg per day. EXAM: GENERAL: Alert male in no acute distress. VITALS: BP 178/80, pulse 70, respirations 20. He was afebrile. HEENT: Eyes, extraocular muscles were full. Nose, mouth, and throat were normal. NECK: No JVD. LUNGS: Bibasilar rales. No wheezing. HEART: Rhythm regular, 1/6 systolic murmur. No 3rd or 4th sound. ABDOMEN: Nontender. Liver and spleen were not palpable. No masses or tenderness is noted. EXTREMITIES: No edema. Calves nontender. IMPRESSION: 1. Know chronic renal failure, on outpatient dialysis 3 times per week. 2. Interstitial and obstructive lung disease. I think this is the etiology of his shortness of breath, as by exam no congestive heart failure is present. 3. Hypertension that has been difficult to control. PLAN: Continue dialysis as he is presently receiving the same and will plan on dialyzing tomorrow to maintain his outpatient schedule and make optimal his fluid status. Dictated By: Jonathan Lake MD /nieves/marie /Document#: [id number]
[2016-10-29] MEDS: LEVOTHYROXINE 125 MCG TAB PO SCH (11:12)
[2016-10-29] MEDS: PANTOPRAZOLE (EC) 40 MG TAB PO SCH (11:13)
[2016-10-29] MEDS: predniSOLONE 5 MG TAB PO SCH (11:13)
[2016-10-29] MEDS: SALMETEROL/FLUTICASONE 500/50 INHA INH SCH (11:14)
[2016-10-29] MEDS: TIOTROPIUM 18 MCG CAPSULE INHA DEV INH SCH (11:14)
[2016-10-29] MEDS: MULTIVIT/CA CARB/B CMPLX/FA TAB PO SCH (11:16)
--- NOTE | 2016-10-29 11:31 | CONS ---
Date/Time of Note Date/Time of Note DATE: 10/29/16 TIME: 11:30 Consult Date/Type/Reason Admit Date/Time Oct 25, 2016 at 13:48 Initial Consult Date 10/26/16 Type of Consultation: Pulmonary ICU Ordering Provider: HINA CASTILLO MD Subjective Patient better today. Less shortness of breath. Objective Vital Signs Date Time Temp Pulse Resp B/P Pulse Ox O2 Delivery O2 Flow Rate FiO2 10/29/16 10:47 67 16 10/29/16 08:11 97.8 104/49 98 10/29/16 08:01 Nasal Cannula 2.0 Intake and Output 10/28/16 10/28/16 10/29/16 15:00 23:00 07:00 Intake Total 500 ml 300 ml Balance 500 ml 300 ml Exam Exam GENERAL: elderly Portuguese gentleman comfortable at rest VITAL SIGNS: per chart NECK: Supple. No JVD or lymphadenopathy. CARDIAC EXAM: S1, S2. No added sounds or murmurs. CHEST: Diminished air entry bilaterally ABDOMEN: Soft, nontender. No guarding or rebound. EXTREMITIES: No cyanosis, clubbing or edema. NEUROLOGIC: Generalized weakness. No focal deficits. Results/Medications Result Diagram: 10/29/16 0701 10/29/16 0701 Results 24 hrs Laboratory Tests Test 10/28/16 11:35 10/28/16 16:40 10/29/16 07:01 10/29/16 07:50 Bedside Glucose 83 172 98 White Blood Count 9.2 # Red Blood Count 3.09 L Hemoglobin 9.5 L Hematocrit 28.3 L Mean Corpuscular Volume 91.6 Mean Corpuscular Hemoglobin 30.7 Mean Corpuscular Hemoglobin Concent 33.6 Red Cell Distribution Width 14.9 H Platelet Count 179 Mean Platelet Volume 10.2 Neutrophils % 70.5 Lymphocytes % 21.0 Monocytes % 7.0 Eosinophils % 0.9 Basophils % 0.1 Nucleated Red Blood Cells % 0.0 Neutrophils # 6.5 Lymphocytes # 1.9 Monocytes # 0.6 Eosinophils # 0.1 Basophils # 0.0 Nucleated Red Blood Cells # 0.0 Sodium Level 136 Potassium Level 4.6 Chloride Level 90 L Carbon Dioxide Level 25 Anion Gap 26 #H Blood Urea Nitrogen 85 #H Creatinine 7.47 H Glucose Level 94 Calcium Level 8.9 Medications Current Medications Acetaminophen (Tylenol Tab) 650 mg Q6H PRN PO PAIN AND OR ELEVATED TEMP; Start 10/25/16 at 17:00 Aspirin (Aspirin) 81 mg DAILY PO Last administered on 10/27/16 11:44; Admin Dose 81 MG; Start 10/25/16 at 17:00 Carvedilol (Coreg) 12.5 mg BID PO Last administered on 10/28/16 20:46; Admin Dose 12.5 MG; Start 10/25/16 at 21:00 Clonidine (Catapres) 0.1 mg TID PO Last administered on 10/28/16 20:45; Admin Dose 0.1 MG; Start 10/25/16 at 21:00 Docusate Sodium (Colace) 100 mg Q12 PO Last administered on 10/28/16 20:45; Admin Dose 100 MG; Start 10/25/16 at 21:00 Minoxidil (Loniten) 5 mg BID PO Last administered on 10/28/16 20:46; Admin Dose 5 MG; Start 10/25/16 at 21:00 Multivit/Ca Carb/ B Cmplx/FA/Prenat (Katlyn-Michael) 1 tab DAILY PO Last administered on 10/29/16 11:16; Admin Dose 1 TAB; Start 10/25/16 at 18:00 Nifedipine (Procardia Xl) 30 mg BID PO Last administered on 10/28/16 20:45; Admin Dose 30 MG; Start 10/25/16 at 21:00 Pantoprazole (Protonix Tab) 40 mg DAILY@06 PO Last administered on 10/29/16 11 :13; Admin Dose 40 MG; Start 10/26/16 at 06:00 Salmeterol Xinafoate/ Fluticasone (Advair 500/50 Diskus) 1 inh BID INH Last administered on 10/29/16 11:14; Admin Dose 1 INH; Start 10/25/16 at 21:00 Senna (Senokot) 1 tab DAILY PRN PO CONSTIPATION; Start 10/25/16 at 17:00 Tamsulosin HCl (Flomax) 0.4 mg HS PO Last administered on 10/28/16 20:46; Admin Dose 0.4 MG; Start 10/25/16 at 21:00 Tiotropium [place] (Spiriva) 1 inh BID INH Last administered on 10/29/16 11:14 ; Admin Dose 1 INH; Start 10/25/16 at 21:00 Valsartan (Diovan) 320 mg DAILY PO Last administered on 10/28/16 16:18; Admin Dose 160 MG; Start 10/26/16 at 09:00 Miscellaneous Information 1 ea NOTE XX ; Start 10/25/16 at 17:30 Glucose (Glutose) 15 gm Q15M PRN PO DECREASED GLUCOSE; Start 10/25/16 at 17:30 Glucose (Glutose) 22.5 gm Q15M PRN PO DECREASED GLUCOSE; Start 10/25/16 at 17: 30 Dextrose (D50w Syringe) 25 ml Q15M PRN IV DECREASED GLUCOSE; Start 10/25/16 at 17:30 Dextrose (D50w Syringe) 50 ml Q15M PRN IV DECREASED GLUCOSE; Start 10/25/16 at 17:30 Glucagon (Glucagen) 1 mg Q15M PRN IM DECREASED GLUCOSE; Start 10/25/16 at 17:30 Glucose (Glutose) 15 gm Q15M PRN BUCCAL DECREASED GLUCOSE; Start 10/25/16 at 17 :30 Prednisolone (Prednisolone) 15 mg DAILY PO Last administered on 10/29/16 11:13 ; Admin Dose 15 MG; Start 10/25/16 at 18:30 Epoetin Jordon (Epogen (Esrd)) 10,000 units MoWeFr@17 SC ; Start 10/26/16 at 17:00 Amiodarone HCl (Cordarone) 200 mg DAILY PO Last administered on 10/28/16 09:08 ; Admin Dose 200 MG; Start 10/26/16 at 10:00 Assessment/Plan Chief Complaint/Hosp Course Assessment 1. Progressive hypoxemic respiratory failure secondary to volume overload, CT chest when euvolemic. 2. End-stage renal failure on hemodialysis, 3. History of coronary artery disease status post coronary artery bypass graft surgery 4. History of essential hypertension Recommendations 1. More aggressive volume removal during hemodialysis 2. Ongoing pulmonary edema. Clinically improved 3. Supplemental O2 as needed, will arrange outpatient sleep study and CPAP. 4. Encourage ambulation 5. DVT and GI prophylaxis Agree with discharge planning Problems: CARLEEN MORGAN MD, [facility] Oct 29, 2016 11:31
--- NOTE | 2016-10-29 21:17 | CONS ---
Date/Time of Note Date/Time of Note DATE: 10/29/16 TIME: 11:16 Assessment/Plan Assessment/Plan Chief Complaint/Hosp Course Anemia - CHRONIC, MULTIFACTORIAL, COMPENSATED AT PRESENT +COMPONENT ACD AND IRON DEFICIENCY CONT TO MONITOR BLOOD COUNT CLOSELY OBSERVE FOR BLEEDING AND HEMOLYSIS TRANSFUSE NEEDED EPO WITH HD post EGD 5.07.27- Mild reflux esophagitis. Antral gastritis. Fundal nodular gastritis. LEUKOCYTOSIS REACTIVE MONITOR CLOSELY NOTE THAT PT IS not ON STEROIDS THROMBOCYTOPENIA- IMPROVED CONT TO MONITOR End-stage renal disease, hemodialysis dependent. Right chest Perm-A-Cath. Chronic obstructive pulmonary disease exacerbation. Tachycardia- h/o svt, nsvt HTN-. CAD - stable, s/p PCI 12/2015 with IZABELLA x 1 to RCA, no change on 01/2016 cath, small d2, managed medically Acute on chronic diastolic HF- difficult fluid mgmt with iHD Interstitial and COPD, rx with daily steroids (po) HX Acute respiratory failure HX Pneumonia Problems: Consultation Date/Type/Reason Admit Date/Time Oct 25, 2016 at 13:48 [facility] Referring Provider: HINA CASTILLO MD 24 HR Interval Summary Free Text/Dictation all noted Patient better today. Less shortness of breath. Exam/Review of Systems Vital Signs Vitals Vital Signs Date Time Temp Pulse Resp B/P Pulse Ox O2 Delivery O2 Flow Rate FiO2 10/29/16 12:08 64 10/29/16 12:01 97.7 18 117/57 98 10/29/16 08:01 Nasal Cannula 2.0 Intake and Output 10/28/16 10/28/16 10/29/16 15:00 23:00 07:00 Intake Total 500 ml 300 ml Balance 500 ml 300 ml Exam GENERAL: elderly Nigerian gentleman comfortable at rest VITAL SIGNS: per chart NECK: Supple. No JVD or lymphadenopathy. CARDIAC EXAM: S1, S2. No added sounds or murmurs. CHEST: Diminished air entry bilaterally ABDOMEN: Soft, nontender. No guarding or rebound. EXTREMITIES: No cyanosis, clubbing or edema. NEUROLOGIC: Generalized weakness. No focal deficits. Results Result Diagram: 10/29/16 0710/29/16 07 Results 24 hrs Laboratory Tests Test 10/29/16 07:01 10/29/16 07:50 White Blood Count 9.2 # Red Blood Count 3.09 L Hemoglobin 9.5 L Hematocrit 28.3 L Mean Corpuscular Volume 91.6 Mean Corpuscular Hemoglobin 30.7 Mean Corpuscular Hemoglobin Concent 33.6 Red Cell Distribution Width 14.9 H Platelet Count 179 Mean Platelet Volume 10.2 Neutrophils % 70.5 Lymphocytes % 21.0 Monocytes % 7.0 Eosinophils % 0.9 Basophils % 0.1 Nucleated Red Blood Cells % 0.0 Neutrophils # 6.5 Lymphocytes # 1.9 Monocytes # 0.6 Eosinophils # 0.1 Basophils # 0.0 Nucleated Red Blood Cells # 0.0 Sodium Level 136 Potassium Level 4.6 Chloride Level 90 L Carbon Dioxide Level 25 Anion Gap 26 #H Blood Urea Nitrogen 85 #H Creatinine 7.47 H Glucose Level 94 Calcium Level 8.9 Bedside Glucose 98 ANDRE SMITH MD Oct 29, 2016 21:17
== END 2016-10-29 12:15 | disposition home health service (06) | DRG 291 ==
LOC: E/R 12:04 → MS4 13:48
PROVIDERS: ADMIT Family Medicine; ATTEND Family Medicine
PROC: 5A1D60Z (ICD-10-PCS; principal; 2016-10-25)
DX: I13.2 Hypertensive heart and chronic kidney disease with heart failure and with stage 5 chronic kidney disease, or end stage renal disease (principal); I50.33 Acute on chronic diastolic (congestive) heart failure; J96.01 Acute respiratory failure with hypoxia; N17.9 Acute kidney failure, unspecified; I47.2 Ventricular tachycardia; E87.2 Acidosis; N18.6 End stage renal disease; J44.1 Chronic obstructive pulmonary disease with (acute) exacerbation; J81.1 Chronic pulmonary edema; I82.612 Acute embolism and thrombosis of superficial veins of left upper extremity; N20.1 Calculus of ureter; I69.354 Hemiplegia and hemiparesis following cerebral infarction affecting left non-dominant side; I25.10 Atherosclerotic heart disease of native coronary artery without angina pectoris; I70.0 Atherosclerosis of aorta; N40.0 Benign prostatic hyperplasia without lower urinary tract symptoms; E11.51 Type 2 diabetes mellitus with diabetic peripheral angiopathy without gangrene; E11.22 Type 2 diabetes mellitus with diabetic chronic kidney disease; F43.23 Adjustment disorder with mixed anxiety and depressed mood; F32.9 Major depressive disorder, single episode, unspecified; M54.9 Dorsalgia, unspecified; M81.0 Age-related osteoporosis without current pathological fracture; M19.90 Unspecified osteoarthritis, unspecified site; K66.0 Peritoneal adhesions (postprocedural) (postinfection); D63.1 Anemia in chronic kidney disease; R41.3 Other amnesia; R63.4 Abnormal weight loss; R63.1 Polydipsia; R07.9 Chest pain, unspecified; R31.9 Hematuria, unspecified; Z66 Do not resuscitate; Z79.82 Long term (current) use of aspirin; Z79.52 Long term (current) use of systemic steroids; Z99.81 Dependence on supplemental oxygen; Z68.23 Body mass index [BMI] 23.0-23.9, adult; Z87.891 Personal history of nicotine dependence; Z95.1 Presence of aortocoronary bypass graft; Z87.01 Personal history of pneumonia (recurrent); Z87.440 Personal history of urinary (tract) infections; Z99.2 Dependence on renal dialysis; Z95.9 Presence of cardiac and vascular implant and graft, unspecified
CPT/HCPCS: 36415; 71010; 76775; 80048; 80053; 82550; 82553; 82728; 82962; 83540; 83880; 84100; 84484; 85025; 85610; 85730; 90935; 93005; 94640; J1815; J7510; Q4081

== ENCOUNTER 2016-12-29 08:12 | Inpatient (IN) | payer MEDICARE, BC ==
[2016-12-29] VITALS (15 sets, daily range): BP systolic 116–204; BP diastolic 57–82; PULSE 71–90; RESP 18–20; Ht 157.5 cm; Wt 66.0 kg
[~2016-12-29] VITALS: Ht 157.5 cm; Wt 66.0 kg
[~2016-12-29 08:12] MED LIST changes: +AMIO200T2 PO
[2016-12-29] MEDS ORDERED: CARV3.12 PO (09:09)
[2016-12-29] MEDS ORDERED: ASPI-664 PO (09:09)
[2016-12-29] MEDS ORDERED: FOLI-49 PO (09:10)
[2016-12-29] MEDS ORDERED: CLON0.2T5 PO (09:10)
[2016-12-29] MEDS ORDERED: VALS320T11 PO (09:11)
[2016-12-29] MEDS ORDERED: LEVO125T75 PO (09:11)
[2016-12-29] MEDS ORDERED: COLC0.6T6 PO (09:12)
[2016-12-29] MEDS ORDERED: TAMS0.4C2 PO (09:12)
[2016-12-29] MEDS ORDERED: ESOM40CA PO (09:14)
[2016-12-29] MEDS ORDERED: CYAN500T46 PO (09:15)
[2016-12-29] MEDS ORDERED: ROSU40TA35 PO (09:16)
[2016-12-29] MEDS ORDERED: ALBU2.5V3 NEB (09:16)
[2016-12-29] MEDS ORDERED: CALC-277 PO (09:18)
[2016-12-29] MEDS ORDERED: ROSU20TA PO (09:18)
[2016-12-29] MEDS ORDERED: TIOT18CA INHALATION (09:18)
[2016-12-29 09:47] LABS: BASOPHILS % 0.4 % (0.0-2.0); EOSINOPHILS # 0.2 10^3/ul (0.0-0.5); EOSINOPHILS % 1.8 % (0.0-7.0); HEMATOCRIT 31.2 % (42.0-52.0); HEMOGLOBIN 10.1 g/dl (14.0-18.0); LYMPHOCYTES # 1.4 10^3/ul (0.8-2.9); LYMPHOCYTES % 16.8 % (15.0-51.0); MEAN CORPUSCULAR HEMOGLOBIN 31.3 pg (29.0-33.0); MEAN CORPUSCULAR HGB CONC 32.4 g/dl (32.0-37.0); MEAN CORPUSCULAR VOLUME 96.6 fl (82.0-101.0); MEAN PLATELET VOLUME 10.2 fl (7.4-10.4); MONOCYTE # 0.6 10^3/ul (0.3-0.9); MONOCYTES % 6.5 % (0.0-11.0); NEUTROPHIL # 6.2 10^3/ul (1.6-7.5); NEUTROPHILS % 73.6 % (39.0-77.0); PLATELET COUNT 193 10^3/UL (140-415); RED BLOOD COUNT 3.23 10^6/ul (4.70-6.10); WHITE BLOOD COUNT 8.5 10^3/ul (4.8-10.8)
--- NOTE | 2016-12-29 09:47 | RADRPT ---
PROCEDURE: Chest Radiograph. CLINICAL INDICATION: Chest pain TECHNIQUE: Single frontal chest radiograph. COMPARISON: Chest radiograph 10/27/2016 FINDINGS: The heart is magnified. Atherosclerotic calcifications are present. Extensive interstitial opacitie s are seen throughout the bilateral lung rojo which appears similar compared to prior imaging and likely represent chronic lung changes . Superimposed infiltrates are difficult to exclude. The blayne jenn are intact. IMPRESSION: 1. Extensive interstitial opacities throughout the bilateral lung zones likely representing chronic lung changes, however superimposed interstitial infiltrates are difficult to exclude. 2. Atherosclerotic vascular disease. RPTAT: KK .Pankaj Rush MD, MD Date Time Electronically viewed and signed by .Pankaj Rush MD, MD on 12/29/2016 09:02 .B/
[2016-12-29] MEDS ORDERED: ACETAMINOPHEN 325 MG TAB PO PRN ×2 (10:00→12:00)
[2016-12-29] MEDS ORDERED: ONDANSETRON 4 MG INJ IV PRN ×2 (10:00→12:00)
[2016-12-29 10:13] LABS: CALCIUM 9.3 mg/dl (8.4-10.2); CREATININE 10.89 mg/dl (0.61-1.24)
[2016-12-29] MEDS ORDERED: NA POLYST SULFON 15 GM/60 ML BTL PO STA (10:33)
[2016-12-29] MEDS ORDERED: NA BICARBONATE 8.4% 50 ML SYG IV STA (10:33)
[2016-12-29] MEDS ORDERED: INSULIN REGULAR, HUMAN 100 UNIT/1 ML 3ML VIAL IV STA (10:33)
[2016-12-29] MEDS ORDERED: ALBUTEROL 0.5% (NEB) 2.5 MG/0.5 ML AMP INH STA (10:33)
[2016-12-29 10:34] LABS: POTASSIUM 6.9 mmol/L (3.5-5.1); TROPONIN-I 0.149 ng/ml (0.00-0.12)
--- NOTE | 2016-12-29 10:40 | ERA ---
ER Documentation Chief Complaint Date/Time DATE: 12/29/16 TIME: 10:37 Chief Complaint BROUGHT IN VIA EMS FROM HOME DUE SOB WITH DIALSYS DUE TODAY HPI Patient is a 81-year-old male with coronary disease and dialysis who presents with shortness of breath. The patient was due for dialysis today but did not feel well so he was brought in by ambulance instead to the ER. The patient is complaining of chest pain shortness of breath which started this morning. Upon review of old medical records he has visits for similar in the past. He has had no treatment as of yet. The symptoms are constant. ROS All systems reviewed and are negative except as per history of present illness. Medications Home Meds Reported Medications Tiotropium [place]* (Spiriva*) 18 Mcg Cap.w.dev, 1 CAP INHALATION DAILY, #30 CAP 12/29/16 Calcium Carbonate/Vitamin D3 (OYSTER SHELL 500 MG + VIT D TB) 1 Each Tablet, 1 EACH PO BID, TAB 12/29/16 Rosuvastatin Calcium* (Crestor*) 20 Mg Tablet, 20 MG PO QHS, #30 TAB 12/29/16 Rosuvastatin Calcium* (Crestor*) 40 Mg Tablet, 40 MG PO QHS, #30 TAB 12/29/16 Albuterol Sulfate* (Albuterol Sulfate* Neb) 0.083%-3 Ml Neb, 1.25 MG NEB Q4H Y for WHEEZING AND SOB, #30 VIAL 12/29/16 Cyanocobalamin* (Vitamin B12*) 500 Mcg Tab, 500 MCG PO DAILY, TAB 12/29/16 Esomeprazole Mag Trihydrate (Nexium) 40 Mg Capsule.dr, 40 MG PO DAILY, #30 CAP 12/29/16 Tamsulosin Hcl* (Tamsulosin Hcl*) 0.4 Mg Cap.er.24h, 0.4 MG PO HS, CAP 12/29/16 Colchicine* (Colcrys*) 0.6 Mg Tablet, 0.6 MG PO BID, TAB 12/29/16 Valsartan* (Diovan*) 320 Mg Tablet, 320 MG PO DAILY, TAB 12/29/16 Levothyroxine Sodium* (Levothyroxine Sodium*) 125 Mcg Tablet, 125 MCG PO BEFORE BREAKFAST, #30 TAB 12/29/16 Folic Acid* (Folic Acid*) 1 Mg Tablet, 1 MG PO DAILY, TAB 12/29/16 Clonidine Hcl* (Clonidine Hcl*) 0.2 Mg Tablet, 0.2 MG PO Q8 Y for ELEVATED BLOOD PRESSURE, TAB 12/29/16 Aspirin* (Aspirin* EC) 81 Mg Tablet.dr, 81 MG PO DAILY, TAB 12/29/16 Carvedilol* (Coreg*) 3.125 Mg Tablet, 3.125 MG PO BID, #60 TAB 12/29/16 Discontinued Reported Medications Prednisolone* (Prelone*) 15 Mg/5 Ml Solution, 15 MG PO DAILY, ML 06/02/16 Multivit/Ca Carb/B Cmplx/Fa* (Katlyn-Michael*) 1 Tab Tab, 1 TAB PO DAILY, TAB 06/02/16 Insulin Aspart (Novolog) 100 Unit/1 Ml Cartridge, 0 SQ SLIDING SCALE BEFORE MEALS; 200-250=2 UNITS, 251-300=4 UNITS, 301-350=6 UNITS, 351-400=8 UNITS,>400=10 UNITS AND CALL 06/02/16 Docusate Sodium* (Docusate Sodium*) 100 Mg Capsule, 100 MG PO Q12, #60 CAP 06/02/16 Sennosides* (Senna Lax*) 8.6 Mg Tablet, 1 TAB PO DAILY Y for CONSTIPATION, TAB 01/13/16 Levothyroxine Sodium* (Levothyroxine Sodium*) 125 Mcg Tablet, 125 MCG PO BEFORE BREAKFAST, #30 TAB 11/28/15 Discontinued Scripts Amiodarone Hcl* (Amiodarone Hcl*) 200 Mg Tablet, 200 MG PO DAILY for 30 Days, # 30 TAB Prov:HINA MCALLISTER MD 10/29/16 Aspirin (Aspirin) 81 Mg Chew, 81 MG PO DAILY for 30 Days, #30 TAB Prov:HINA MCALLISTER MD 09/22/16 Valsartan* (Diovan*) 160 Mg Tablet, 320 MG PO DAILY for 30 Days, #30 TAB HOLD IF SBP<110;HR Prov:HINA MCALLISTER MD 09/22/16 Calcium Acetate* (Calcium Acetate*) 667 Mg Capsule, 667 MG PO WITH MEALS for 30 Days, #30 CAP Prov:HINA MCALLISTER MD 09/22/16 Tiotropium [place]* (Spiriva*) 18 Mcg Cap.w.dev, 1 INH INH BID for 30 Days, #60 CAP Prov:HINA MCALLISTER MD 09/22/16 Nifedipine (Procardia Xl) 30 Mg Tab.er.24, 30 MG PO BID for 30 Days, #30 TAB Prov:HINA MCALLISTER MD 09/22/16 Minoxidil* (Lonitin*) 2.5 Mg Tab, 5 MG PO BID for 30 Days, #60 TAB Prov:HINA MCALLISTER MD 09/22/16 Clonidine Hcl* (Clonidine Hcl*) 0.1 Mg Tab, 0.1 MG PO TID for 30 Days, #90 TAB Prov:HINA MCALLISTER MD 09/22/16 Carvedilol* (Carvedilol*) 12.5 Mg Tablet, 12.5 MG PO BID for 30 Days, #60 TAB Prov:HINA MCALLISTER MD 09/22/16 Albuterol Sulfate* (Albuterol Sulfate* Neb) 0.083%-3 Ml Neb, 2.5 MG HHN Q6HWA RESP THERAPY for 30 Days, #90 BLIST PACK Prov:HINA MCALLISTER MD 09/22/16 Acetaminophen* (Tylenol*) 325 Mg Tablet, 650 MG PO Q6H Y for PAIN AND OR ELEVATED TEMP for 30 Days, #90 TAB Prov:HINA MCALLISTER MD 09/22/16 Tamsulosin Hcl* (Tamsulosin Hcl*) 0.4 Mg Cap.er.24h, 0.4 MG PO HS for 30 Days, # 30 CAP Prov:HINA MCALLISTER MD 09/22/16 Salmeterol Xinaf-Fluticasone* (Advair*) 500/50 Diskus Inhaler, 1 INH INH BID for 30 Days, #1 CAP.EC Prov:HINA MCALLISTER MD 04/28/16 Pantoprazole* (Pantoprazole*) 40 Mg Tablet.dr, 40 MG PO DAILY@06 for 30 Days, # 30 BOX Prov:HINA MCALLISTER MD 04/28/16 Allergies Allergies: Coded Allergies: No Known Allergy (Unverified , 06/02/16) PMhx/Soc History of Surgery: Yes (KNEE SURGERY) Anesthesia Reaction: No Hx Neurological Disorder: No Hx Respiratory Disorders: Yes (SOB) Hx Psychiatric Problems: No Hx Miscellaneous Medical Probl: No Hx Alcohol Use: No Hx Substance Use: No Hx Tobacco Use: No Smoking Status: Never smoker FmHx Family History: No diabetes Physical Exam Vitals Vital Signs Date Time Temp Pulse Resp B/P Pulse Ox O2 Delivery O2 Flow Rate FiO2 12/29/16 10:32 78 20 160/78 100 Nasal Cannula 2.0 12/29/16 08:36 Nasal Cannula 2 12/29/16 08:14 98.3 92 18 197/85 98 Physical Exam Const: Moderate distress secondary to shortness of breath Head: Atraumatic Eyes: Normal Conjunctiva ENT: Normal External Ears, Nose and Mouth. Neck: Full range of motion..~ No meningismus. Resp: Decreased breath sounds bilaterally Cardio: Regular rate and rhythm, no murmurs Abd: Soft, non tender, non distended. Normal bowel sounds Skin: No petechiae or rashes Back: No midline or flank tenderness Ext: No cyanosis, or edema Neur: Awake and alert Psych: Normal Mood and Affect Result Diagram: 12/29/1692912/29/16 0930 Results 24 hrs Laboratory Tests Test 12/29/16 09:30 White Blood Count 8.510^3/ul Red Blood Count 3.2310^6/ul Hemoglobin 10.1g/dl Hematocrit 31.2% Mean Corpuscular Volume 96.6fl Mean Corpuscular Hemoglobin 31.3pg Mean Corpuscular Hemoglobin Concent 32.4g/dl Red Cell Distribution Width 15.0% Platelet Count 99991^3/UL Mean Platelet Volume 10.2fl Neutrophils % 73.6% Lymphocytes % 16.8% Monocytes % 6.5% Eosinophils % 1.8% Basophils % 0.4% Nucleated Red Blood Cells % 0.0/100WBC Neutrophils # 6.210^3/ul Lymphocytes # 1.410^3/ul Monocytes # 0.610^3/ul Eosinophils # 0.210^3/ul Basophils # 0.010^3/ul Nucleated Red Blood Cells # 0.010^3/ul Sodium Level 136mmol/L Potassium Level 6.9mmol/L Chloride Level 96mmol/L Carbon Dioxide Level 27mmol/L Anion Gap 20 Blood Urea Nitrogen 90mg/dl Creatinine 10.89mg/dl Glucose Level 87mg/dl Calcium Level 9.3mg/dl Troponin I 0.149ng/ml Current Medications Medications (Trade) Dose Ordered Sig/Bettina Route PRN Reason Start Time Stop Time Status Last Admin Dose Admin Ondansetron HCl (Zofran Inj) 4 mg ER BRIDGE PRN IV NAUSEA AND/OR VOMITING 12/29/16 10:00 12/30/16 09:59 Acetaminophen (Tylenol Tab) 650 mg ER BRIDGE PRN PO MILD PAIN/FEVER 12/29/16 10:00 12/30/16 09:59 Sodium Polystyrene Sulfonate (Kayexalate) 30 gm ONCE STAT PO 12/29/16 10:33 12/29/16 10:35 DC Albuterol (Proventil 0.5% (Neb)) 15 mg ONCE STAT INH 12/29/16 10:33 12/29/16 10:35 DC Sodium Bicarbonate (Na Bicarb 8.4% Syg) 50 ml ONCE STAT IV 12/29/16 10:33 12/29/16 10:35 DC Insulin Human Regular (Humulin R) 10 unit ONCE STAT IV 12/29/16 10:33 12/29/16 10:35 DC Dextrose (D50w Syringe) ONCE PRN IV POC BLOOD GLUCOSE <250 MG/DL 12/29/16 11:00 Procedures/MDM EKG #1 read by me: Rate/Rhythm: First-degree AV block at a rate of 76 Intervals: Prolonged AR interval Impression: First-degree AV block with peak T waves EKG #2 read by me: Rate/Rhythm: First-degree AV block at a rate of 72 Intervals: Prolonged AR interval Impression: First-degree AV block with peak T waves Chest x-ray pending. Patient is a 81-year-old male presents with chest pain shortness of breath. He was found to have a positive troponin and hyperkalemia as well. The patient was given aspirin, nitroglycerin, insulin, glucose, Kayexalate, albuterol, and bicarbonate. The patient will be admitted to the care of Dr. Bonilla. The patient has Medicare [employer] regal insurance and I spoke with Dr. Moreno who is the regal doctor but she said that she would prefer that Dr. Mcallister admit this patient. Dr. Bonilla is covering for Dr. Pilossyan. Therefore the patient will be admitted to a telemetry bed. Prognosis is poor given the patient's age and comorbidities. The patient will likely need dialysis while admitted. Critical Care: Time: 35 minutes excluding all billable procedures. Treatments/Evaluations: Close monitoring and treatment of unstable vital signs, cardiorespiratory, and neurologic status, while maintaining tight balance of fluid, respiratory, and cardiac interventions. Departure Diagnosis: Primary Impression: Hyperkalemia Additional Impressions: Shortness of breath NSTEMI (non-ST elevated myocardial infarction) Condition: Serious CADY AREVALO MD Dec 29, 2016 10:40
[2016-12-29] MEDS ORDERED: DEXTROSE 50% 50 ML SYRINGE IV PRN (11:00)
[2016-12-29] MEDS ORDERED: NACL 0.9% 3 ML SYG IV SCH (12:00)
[2016-12-29] MEDS ORDERED: ZOLPIDEM 5 MG TAB PO PRN (12:00)
[2016-12-29] MEDS ORDERED: NITROGLYCERIN (SL) 0.4 MG TAB SL PRN (12:00)
[2016-12-29] MEDS ORDERED: morphine 2 MG INJ IV PRN (12:00)
[2016-12-29] MEDS ORDERED: hydrALAzine 20 MG INJ IV PRN (12:00)
[2016-12-29] MEDS ORDERED: ALBUTEROL 0.083% (NEB) 2.5 MG/3 ML AMP NEB PRN (12:00)
--- NOTE | 2016-12-29 14:13 | HP ---
DATE OF ADMISSION: 12/29/2016 CHIEF COMPLAINT: Shortness of breath. HISTORY OF PRESENT ILLNESS: The patient is a 81-year-old male, known to me from previous admission. Patient with history of coronary artery disease, history of stents placement 8 months ago. The patient follow with in Cardiology. The patient also with end-stage renal disease, hemodialysis dependent whose last dialysis was on Wednesday and patient is due for hemodialysis today. The patient also with history of COPD, hypertension, diastolic congestive heart failure, gout and BPH. The patient presented with complaints of shortness of breath. Denies any chest pain. Denies any nausea or vomiting. Denies any fever or chills. The patient underwent a chest x-ray in the emergency room, which revealed extensive interstitial opacities throughout the bilateral lung zones likely representing chronic lung changes, however, superimposed interstitial infiltrate difficult to exclude, atherosclerotic vascular disease. The patient is noted to have potassium of 6.9, the patient also noted to be troponin elevated to 0.149. The patient was given treatment for hyperkalemia and patient will be admitted for further evaluation and management to telemetry floor. PAST MEDICAL HISTORY: Per HPI. PAST SURGICAL HISTORY: Status post PCI in December 2015 1 year ago to times 1, to RCA. Cardiac cath in January 2016 was no change. FAMILY HISTORY: Noncontributory. SOCIAL HISTORY: Patient is a former smoker, quit smoking many years ago. Patient denies any alcohol use. Denies any illicit drug use. ALLERGIES: NO KNOWN ALLERGIES. MEDICATIONS: Spiriva, calcium carbonate, vitamin D3, Crestor, vitamin B12, Nexium, Tamsulosin, colchicine, Diovan, levothyroxine, folic acid, clonidine, aspirin, and Coreg. REVIEW OF SYSTEMS: Twelve point review of system is negative unless mentioned. PHYSICAL EXAMINATION: GENERAL: Well-developed, well-nourished, white male, currently is awake, alert, and on supplemental oxygen. VITAL SIGNS: Temperature is 98.3, pulse is 78, blood pressure 160/78, respiratory rate 20, and oxygen saturation 100 percent on 2 L nasal cannula. HEENT: Head is atraumatic, normocephalic. Pupils equal, round, reactive to light and accommodation. Oral mucosa is pink and moist. NECK: Supple. No cervical lymphadenopathy. No JVD is present. LUNGS: Clear. Bilateral slightly diminished at the bases. CARDIOVASCULAR: Normal S1, S2. No murmurs, gallops, clicks, or rubs noted. ABDOMEN: Round, soft, nondistended, nontender. Bowel sounds present. EXTREMITIES: No edema, clubbing, cyanosis. Left upper extremity with AV shunt. SKIN: No rash. No petechiae noted. NEUROLOGICAL: Patient is awake, alert, and oriented times 4. LABORATORY DATA: On admission, CBC white blood cells 8.5, hemoglobin 10.1, hematocrit 31.2, and platelets 193. Chemistry, sodium was 136, potassium 6.9, chloride 96, carbon dioxide 27, anion gap 20, BUN is 19, creatinine 10.89, glucose 87, calcium 9.3, troponin 0.149. ASSESSMENT AD PLAN: 1. Acute respiratory insufficiency most likely due to fluid overload. 2. Diastolic congestive heart failure. 3. Hyperkalemia. We will ask Dr. Lake to see patient in Nephrology consultation. Patient will undergo dialysis today. 4. Non ST-elevation myocardial infarction. Continue patient on aspirin with Dr. Craig to see patient in cardiology consultation. 5. Coronary artery disease, status post history of stent placement in December 2015. 6. Hypertension. Continue hydralazine as needed for systolic blood pressure above 170 and continue Diovan and Coreg. 7. Hyperlipidemia. Continue Crestor. 8. Chronic obstructive pulmonary disease (COPD). Continue Spiriva and the breathing treatment p.r.n. and routine. 9. Anemia of chronic disease. We will continue Nexium for peptic ulcer disease prophylaxis and sequential compression device for deep venous thrombosis prophylaxis. 10. Further recommendations based on clinical course. PLAN: Plan of care discussed with Dr. Bonilla. Dictated By: Maty Henley NP /nieves/lisbeth /Document#: [id number]
--- NOTE | 2016-12-29 17:14 | CONS ---
DATE OF ADMISSION: 12/29/2016 DATE OF CONSULTATION: 12/29/[address] Mcallister. Thank you very much for allowing me to evaluate this 81-year-old male admitted to the hospital with shortness of breath. 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 He did undergo dialysis 2 days ago but this morning noted shortness of breath upon awakening without substernal chest pain, a mild nonproductive cough without wheezing, the absence of nausea, vomiting or abdominal pain. Because of the latter, he was brought to [facility] and admitted to the hospital. PAST MEDICAL HISTORY: Includes: 1. A history of coronary artery disease, having had stent placement and admission here for recurrence of congestive heart failure. 2. 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 3. History of benign prostatic hypertrophy. 4. Diabetes mellitus. 5. Depression. 6. Chronic obstructive pulmonary disease with interstitial lung disease. PRESENT MEDICATIONS: Include: 1. Tylenol p.r.n. 2. Albuterol nebulizer. 3. Aspirin 81. 4. Oyster shell calcium 1 b.i.d. 5. Coreg 3.125 b.i.d. 6. Catapres 0.2 q.8 p.r.n. 7. Colchicine 0.6 b.i.d. 8. B12, 500 mcg per day. 9. Folic acid 1 mg per day. 10. Insulin. 11. Levothyroxine 125 mcg per day. 12. Nitroglycerin p.r.n. 13. Crestor 40 mg per day. 14. Having been given a dose of Kayexalate. 15. Flomax 0.4. 16. Valsartan 320. 17. Nexium 40. PHYSICAL EXAMINATION: GENERAL: [place] male with mild dyspnea. VITAL SIGNS: BP 168/80, pulse 70. Respirations were 20. He was afebrile. EYES: Extraocular muscles were full. NOSE, MOUTH AND THROAT: Normal. NECK: Supple. There was no jugular venous distention, thyroid enlargement, adenopathy. LUNGS: Breath sounds with a few rales at the bases. HEART: Rhythm regular. No 3rd sound, 1/6 systolic murmur. ABDOMEN: Nontender. Liver and spleen were not palpable. EXTREMITIES: No edema. Calves nontender. LABORATORY AND DIAGNOSTIC STUDIES: Hematocrit 31.2. White count was 8500. Chemistries: Potassium was 6.9, creatinine 10.89. Troponin 0.149. Chest x-ray revealed extensive interstitial lung disease. IMPRESSION: 1. Chronic renal insufficiency undergoing regular outpatient dialysis 3 times per week with now evidence of mild congestive heart failure and known interstitial lung disease. 2. Hyperkalemia. PLAN: To undergo prompt dialysis today, BP to be monitored throughout his hospitalization and adjustments made to his BP meds. Repeat potassium is pending. Dictated By: Jonathan Lake MD /nieves/rubens /Document#: [id number]
[2016-12-29 18:17] LABS: CK-MB 1.11 ng/ml (0.0-2.4); TROPONIN-I 0.15 ng/ml (0.00-0.12)
[2016-12-29] MEDS ORDERED: COLCHICINE 0.6 MG TAB PO SCH (21:00)
[2016-12-29] MEDS ORDERED: NON-FORMULARY/PATIENT OWN MED (Rosuvastatin Calcium* (Crestor*) 20 MG) PO SCH (21:00)
[2016-12-29] MEDS: TAMSULOSIN (SR) 0.4 MG CAP PO SCH (21:31)
[2016-12-29] MEDS: CALCIUM/VITAMIN D (500/200) TAB PO SCH (21:31)
[2016-12-29] MEDS: ROSUVASTATIN CALCIUM 40 MG TABLET PO SCH (21:33)
[2016-12-29 21:34] LABS: CK-MB 1.16 ng/ml (0.0-2.4); TROPONIN-I 0.144 ng/ml (0.00-0.12)
[2016-12-29] MEDS ORDERED: POTASSIUM CHLORIDE (SR) 20 MEQ TAB PO STA (21:42)
[2016-12-29] MEDS ORDERED: AMIODARONE 150MG/D5W BOLUS 100 ML IV ONE (22:00)
[2016-12-30] VITALS (12 sets, daily range): BP systolic 92–190; BP diastolic 42–83; PULSE 63–81; RESP 18–22
[2016-12-30] MEDS: PANTOPRAZOLE (EC) 40 MG TAB PO SCH (06:15)
[2016-12-30] MEDS: LEVOTHYROXINE 125 MCG TAB PO SCH (06:15)
--- NOTE | 2016-12-30 07:10 | RADRPT ---
PROCEDURE: Chest Radiograph. CLINICAL INDICATION: CHF TECHNIQUE: Single frontal chest radiograph. COMPARISON: Chest radiograph 12/29/2016 FINDINGS: The heart is magnified and may be enlarged. Atherosclerotic calcifications are present. There are p ersistent extensive interstitial and nodular opacities likely indicative of chronic lung changes. Ma rked emphysematous changes are noted in the lung bases on CT abdomen pelvis 12/01/2015. There is no definitive superimposed confluent or lobar infiltrate. Underlying pulmonary nodule cannot be exclude d based on this appearance. IMPRESSION: 1. Extensive interstitial and nodular opacities likely related to chronic lung changes. No definiti ve superimposed infiltrate or effusion. 2. Atherosclerotic vascular disease. RPTAT: [facility] .Pankaj Rush MD, MD Date Time Electronically viewed and signed by .Pankaj Rush MD, on 12/30/2016 07:10 .B/
--- NOTE | 2016-12-30 07:30 | CONS ---
Date/Time of Note Date/Time of Note DATE: 12/30/16 TIME: 07:28 Assessment/Plan Assessment/Plan Additional Assessment/Plan 1. CKD, next HD planned tomm 2. CHF resolved with know interstitial lung dz 3. Hct is stable 4. BP is sl inc, will rev meds Consultation Date/Type/Reason Admit Date/Time Dec 29, 2016 at 09:54 Initial Consult Date Detailed Summary Respiratory: No shortness of breath Cardiovascular: No chest pain Gastrointestinal: no complaints Genitourinary: no complaints Exam/Review of Systems Vital Signs Vitals Vital Signs Date Time Temp Pulse Resp B/P Pulse Ox O2 Delivery O2 Flow Rate FiO2 12/30/16 04:16 98.3 64 19 162/58 97 12/30/16 00:00 Nasal Cannula 4.0 Intake and Output 12/29/16 12/29/16 12/30/16 15:00 23:00 07:00 Intake Total 1350 ml 300 ml Output Total 3500 ml Balance -2150 ml 300 ml Exam Neck: No jvd Respiratory: diminished breath sounds (nad coarse rales bilat) Cardiovascular: regular rate and rhythm, No S3, No S4 Gastrointestinal: soft Extremities: No edema (and no calf tend) Results Result Diagram: 12/29/1692912/29/162009 Results 24 hrs Laboratory Tests Test 12/29/16 09:30 12/29/16 10:40 12/29/16 16:00 12/29/16 20:10 White Blood Count 8.5 Red Blood Count 3.23 L Hemoglobin 10.1 L Hematocrit 31.2 L Mean Corpuscular Volume 96.6 Mean Corpuscular Hemoglobin 31.3 Mean Corpuscular Hemoglobin Concent 32.4 Red Cell Distribution Width 15.0 H Platelet Count 193 Mean Platelet Volume 10.2 Neutrophils % 73.6 Lymphocytes % 16.8 Monocytes % 6.5 Eosinophils % 1.8 Basophils % 0.4 Nucleated Red Blood Cells % 0.0 Neutrophils # 6.2 Lymphocytes # 1.4 Monocytes # 0.6 Eosinophils # 0.2 Basophils # 0.0 Nucleated Red Blood Cells # 0.0 Sodium Level 136 Potassium Level 6.9 *H 5.0 3.7 Chloride Level 96 L Carbon Dioxide Level 27 Anion Gap 20 H Blood Urea Nitrogen 90 H Creatinine 10.89 H Glucose Level 87 Calcium Level 9.3 Troponin I 0.149 *H 0.150 *H 0.144 *H Bedside Glucose 83 Creatine Kinase 22 L 21 L Creatine Kinase Index 5.0 5.5 Creatinine Kinase MB (Mass) 1.11 1.16 Medications Medications Current Medications Dextrose (D50w Syringe) ONCE PRN IV POC BLOOD GLUCOSE <250 MG/DL Last administered on 12/29/16 10:42; Admin Dose 50 ML; Start 12/29/16 at 11:00 Ondansetron HCl (Zofran Inj) 4 mg Q6H PRN IV NAUSEA AND/OR VOMITING; Start at 12:00 Aspirin (Aspirin) 81 mg DAILY PO ; Start 12/30/16 at 09:00 Nitroglycerin (Nitroglycerin (Sl Tab) 0.4 Mg) 1 tab Q5M PRN SL CHEST PAIN; Start 12/29/16 at 12:00 Acetaminophen (Tylenol Tab) 650 mg Q6H PRN PO PAIN LEVEL 1-3 OR FEVER; Start at 12:00 Morphine Sulfate (morphine) 2 mg Q4H PRN IV PAIN LEVEL 7-10; Start 12/29/16 at 12:00 Zolpidem Tartrate (Ambien) 5 mg QHS PRN PO INSOMNIA; Start 12/29/16 at 12:00 Calcium/Vitamin D (Oyster Shell/ Vit-D (500/200)) 1 tab BID PO Last administered on 12/29/16 21:31; Admin Dose 1 TAB; Start 12/29/16 at 21:00 Carvedilol (Coreg) 3.125 mg BID PO Last administered on 12/29/16 21:33; Admin Dose 3.125 MG; Start 12/29/16 at 21:00 Clonidine (Catapres) 0.2 mg Q8H PRN PO SBP>170; Start 12/29/16 at 12:00 Cyanocobalamin (Vitamin B12) 500 mcg DAILY PO ; Start 12/30/16 at 09:00 Folic Acid (Folic Acid) 1 mg DAILY PO ; Start 12/30/16 at 09:00 Rosuvastatin Calcium (Crestor) 40 mg QHS PO Last administered on 12/29/16 21: 33; Admin Dose 40 MG; Start 12/29/16 at 21:00 Tamsulosin HCl (Flomax) 0.4 mg HS PO Last administered on 12/29/16 21:31; Admin Dose 0.4 MG; Start 12/29/16 at 21:00 Tiotropium [place] (Spiriva) 1 inh DAILY INH ; Start 12/30/16 at 09:00 Valsartan (Diovan) 320 mg DAILY PO ; Start 12/30/16 at 09:00 Pantoprazole (Protonix Tab) 40 mg DAILY@06 PO Last administered on 12/30/16 06 :15; Admin Dose 40 MG; Start 12/30/16 at 06:00 Hydralazine HCl (Apresoline) 10 mg Q6H PRN IV SBP>170; Start 12/29/16 at 12:00 Colchicine (Colchicine) 0.3 mg TuFr@09 PO ; Start 01/01/17 at 09:00 TRUE GTZ MD Dec 30, 2016 07:30
--- NOTE | 2016-12-30 08:47 | CONS ---
Date/Time of Note Date/Time of Note DATE: 12/30/16 TIME: 08:28 Assessment/Plan Assessment/Plan Chief Complaint/Hosp Course NSTEMI- elevated trop, but flat trend. does have recurrent cp. trop elevation is higher than on previous admission, given arrhythmia as well recommend invasive evaluation. - asa 81mg daily - cont rosuvastatin - start plavix 300mg po x 1 - npo - plan for C possible PCI today at 1:30 pm WCT - no EKG available for review, on tele appears to have multiple 3-4 min runs of WCT at rate around 120. suspect more SVT with aberrancy but difficult to r/o VT without 12 lead. pt asymptomatic during events. did present with NSTEMI, so would like to r/o ischemic etiology of these rhythms. - cont tele monitoring - obtain ekg if recurrent arrhythmia - cont carvedilol, titrate as tolerated HTN- high on admission, - cont home regimen, coreg/valsartan - add ccb if uncontrolled Chronic diastolic HF- difficult fluid mgmt with iHD - symptomatically improved - cont fluid removal as tolerated - bp control as above Anemia- likely from ESRD Problems: Consultation Date/Type/Reason Admit Date/Time Dec 29, 2016 at 09:54 Date of Consultation: Dec 30, 2016 Type of Consultation: Cardiology Reason for Consultation Chest pain, elevated trop Referring Provider: HINA CASTILLO MD Hx of Present Illness Mr. Kim is a 81 y.o. man with h/o of ESRD on iHD, CAD s/p PCI to RCA 2015, Chronic diastolic heart failure, hypertension, non sustained VT who presented to [facility] with dyspnea and chest pain. Pt reports chest pain is R sided , stabbing pain occurring with dialysis associated with sob. no jaw/arm pain, vomiting, sweating, syncope. +nausea. pt admitted states pain improved, recurred while on iHD yesterday evening, pt noted to have WCT on tele as well x 10 mins. no palpitations, sob, sweating. maybe mild nausea associated. no change in vision, syncope. pt states no current chest pain. Pt denies current pnd, orthopnea, edema. no chest pain/pressure currently. he denies any dizziness, lightheaded, palpitations, syncope. Respiratory: No shortness of breath Cardiovascular: No chest pain Gastrointestinal: no complaints Genitourinary: no complaints Past Medical History PER HPI Past Surgical History PCI to RCA 12/2015 L fistula placement Past Surgical Hx: other Family History Significant Family History: other (no high risk cad) Social History Alcohol Use: none Smoking Status: Former smoker Drug Use: none Exam/Review of Systems Vital Signs Vitals Vital Signs Date Time Temp Pulse Resp B/P Pulse Ox O2 Delivery O2 Flow Rate FiO2 12/30/16 04:16 98.3 64 19 162/58 97 12/30/16 00:00 Nasal Cannula 4.0 Intake and Output 12/29/16 12/29/16 12/30/16 14:59 22:59 06:59 Intake Total 1350 ml 300 ml Output Total 3500 ml Balance -2150 ml 300 ml Exam Constitutional: alert, oriented Psych: nl mood/affect, no complaints Head: atraumatic, normocephalic Eyes: EOMI, nl conjunctiva ENMT: nl external ears & nose, nl lips & teeth, nl nasal mucosa & septum Neck: non-tender, supple, No jvd Respiratory: crackles in bases Cardiovascular: nl pulses, regular rate and rhythm, systolic murmur, No S3, No S4, No bruits, No diastolic murmur, No irregular rhythm, No jugular venous distention (JVD) Gastrointestinal: non-tender, soft Musculoskeletal: nl extremities to inspection, nl gait and stance Extremities: normal pulses Neurological: 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, nl mental status, nl speech, nl strength Skin: nl turgor Results Result Diagram: 12/29/1692912/29/162009 Results 24 hrs Laboratory Tests Test 12/29/16 09:30 12/29/16 10:40 12/29/16 16:00 12/29/16 20:10 White Blood Count 8.5 Red Blood Count 3.23 L Hemoglobin 10.1 L Hematocrit 31.2 L Mean Corpuscular Volume 96.6 Mean Corpuscular Hemoglobin 31.3 Mean Corpuscular Hemoglobin Concent 32.4 Red Cell Distribution Width 15.0 H Platelet Count 193 Mean Platelet Volume 10.2 Neutrophils % 73.6 Lymphocytes % 16.8 Monocytes % 6.5 Eosinophils % 1.8 Basophils % 0.4 Nucleated Red Blood Cells % 0.0 Neutrophils # 6.2 Lymphocytes # 1.4 Monocytes # 0.6 Eosinophils # 0.2 Basophils # 0.0 Nucleated Red Blood Cells # 0.0 Sodium Level 136 Potassium Level 6.9 *H 5.0 3.7 Chloride Level 96 L Carbon Dioxide Level 27 Anion Gap 20 H Blood Urea Nitrogen 90 H Creatinine 10.89 H Glucose Level 87 Calcium Level 9.3 Troponin I 0.149 *H 0.150 *H 0.144 *H Bedside Glucose 83 Creatine Kinase 22 L 21 L Creatine Kinase Index 5.0 5.5 Creatinine Kinase MB (Mass) 1.11 1.16 Medications Medications Current Medications Dextrose (D50w Syringe) ONCE PRN IV POC BLOOD GLUCOSE <250 MG/DL Last administered on 12/29/16 10:42; Admin Dose 50 ML; Start 12/29/16 at 11:00 Ondansetron HCl (Zofran Inj) 4 mg Q6H PRN IV NAUSEA AND/OR VOMITING; Start at 12:00 Aspirin (Aspirin) 81 mg DAILY PO ; Start 12/30/16 at 09:00 Nitroglycerin (Nitroglycerin (Sl Tab) 0.4 Mg) 1 tab Q5M PRN SL CHEST PAIN; Start 12/29/16 at 12:00 Acetaminophen (Tylenol Tab) 650 mg Q6H PRN PO PAIN LEVEL 1-3 OR FEVER; Start at 12:00 Morphine Sulfate (morphine) 2 mg Q4H PRN IV PAIN LEVEL 7-10; Start 12/29/16 at 12:00 Zolpidem Tartrate (Ambien) 5 mg QHS PRN PO INSOMNIA; Start 12/29/16 at 12:00 Calcium/Vitamin D (Oyster Shell/ Vit-D (500/200)) 1 tab BID PO Last administered on 12/29/16 21:31; Admin Dose 1 TAB; Start 12/29/16 at 21:00 Clonidine (Catapres) 0.2 mg Q8H PRN PO SBP>170; Start 12/29/16 at 12:00 Cyanocobalamin (Vitamin B12) 500 mcg DAILY PO ; Start 12/30/16 at 09:00 Folic Acid (Folic Acid) 1 mg DAILY PO ; Start 12/30/16 at 09:00 Rosuvastatin Calcium (Crestor) 40 mg QHS PO Last administered on 12/29/16 21: 33; Admin Dose 40 MG; Start 9/19/17 at 21:00 Tamsulosin HCl (Flomax) 0.4 mg HS PO Last administered on 12/29/16t 21:31; Admin Dose 0.4 MG; Start 12/29/16 at 21:00 Tiotropium [place] (Spiriva) 1 inh DAILY INH ; Start 12/30/16 at 09:00 Valsartan (Diovan) 320 mg DAILY PO ; Start 12/30/16 at 09:00 Pantoprazole (Protonix Tab) 40 mg DAILY@06 PO Last administered on 12/30/16t 06 :15; Admin Dose 40 MG; Start 12/30/16 at 06:00 Hydralazine HCl (Apresoline) 10 mg Q6H PRN IV SBP>170; Start 12/29/16 at 12:00 Colchicine (Colchicine) 0.3 mg TuFr@09 PO ; Start 01/01/17 at 09:00 Carvedilol (Coreg) 6.25 mg BID PO ; Start 12/30/16 at 09:00 Procedures Procedures EKG: NSR, 1st degree avb, no st/t abnl CXR report/images reviewed The heart is magnified and may be enlarged. Atherosclerotic calcifications are present. There are persistent extensive interstitial and nodular opacities likely indicative of chronic lung changes. Marked emphysematous changes are noted in the lung bases on CT abdomen pelvis Tele reviewed: NSR, has intermittent WCT lasting up to 10 mins with rate of 120s and irregularity at start of run. TATA CAVANAUGH Dec 30, 2016 08:43
[2016-12-30] MEDS: TIOTROPIUM 18 MCG CAPSULE INHA DEV INH SCH (08:59)
[2016-12-30] MEDS ORDERED: CLOPIDOGREL 75 MG TAB PO ONE (09:00)
[2016-12-30] MEDS ORDERED: COLCHICINE 0.6 MG TAB PO SCH (09:00)
[2016-12-30] MEDS: FOLIC ACID 1 MG TAB PO SCH (09:00)
[2016-12-30] MEDS: CYANOCOBALAMIN 500 MCG TAB PO SCH (09:01)
[2016-12-30] MEDS: ASPIRIN 81 MG TAB PO SCH (09:01)
[2016-12-30] MEDS: CALCIUM/VITAMIN D (500/200) TAB PO SCH ×2 (09:01→20:41)
[2016-12-30] MEDS: VALSARTAN 160 MG TAB PO SCH (09:08)
[2016-12-30 09:16] LABS: ALBUMIN 3.7 g/dl (3.3-4.9); ALBUMIN/GLOBULIN RATIO 1.27; BILIRUBIN,INDIRECT 0.3 mg/dl (0-1.1); BILIRUBIN,TOTAL 0.3 mg/dl (0.2-1.3); CALCIUM 9.2 mg/dl (8.4-10.2); CREATININE 7.42 mg/dl (0.61-1.24); POTASSIUM 4.7 mmol/L (3.5-5.1); TOTAL PROTEIN 6.6 g/dl (6.1-8.1)
--- NOTE | 2016-12-30 10:38 | PN ---
Date/Time of Note Date/Time of Note DATE: 12/30/16 TIME: 10:31 Assessment/Plan VTE Prophylaxis VTE Prophylaxis Intervention: SCD's Lines/Catheters [facility]from [facility] [place] [employer] line still needed: Yes Assessment/Plan Assessment/Plan - Acute respiratory insufficiency most likely due to fluid overload. - NSTEMI. Dr. Craig is following in cardiology consultation. 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 - ESRD. Dr. Lake is following in nephrology consultation. - Diastolic congestive heart failure. - Hyperkalemia, resolved. - Coronary artery disease, status post history of stent placement in December 2015. - Hypertension. Continue hydralazine as needed for systolic blood pressure above 170 and continue Diovan and Coreg. - Hyperlipidemia. Continue Crestor. - Chronic obstructive pulmonary disease (COPD). Continue Spiriva and the breathing treatment p.r.n. and routine. - Anemia of chronic disease. Continue Nexium for peptic ulcer disease prophylaxis and sequential compression device for deep venous thrombosis prophylaxis. Further recommendations based on clinical course. Plan of care discussed with Dr. Bonilla. Exam/Review of Systems Vital Signs Vitals Vital Signs Date Time Temp Pulse Resp B/P Pulse Ox O2 Delivery O2 Flow Rate FiO2 12/30/16 08:30 76 12/30/16 04:16 98.3 19 162/58 97 12/30/16 00:00 Nasal Cannula 4.0 Intake and Output 12/29/16 12/29/16 12/30/16 15:00 23:00 07:00 Intake Total 1350 ml 300 ml Output Total 3500 ml Balance -2150 ml 300 ml Exam Constitutional: alert Head: normocephalic Neck: supple Respiratory: diminished breath sounds Cardiovascular: nl pulses Gastrointestinal: non-tender, soft Extremities: normal pulses (Left upper extremity AV shunt) Results Result Diagram: 12/29/16 0930 12/30/16 0828 Results 24 hrs Laboratory Tests Test 12/29/16 10:40 12/29/16 16:00 12/29/16 20:10 12/30/16 08:28 Bedside Glucose 83 Potassium Level 5.0 3.7 4.7 Creatine Kinase 22 L 21 L Creatine Kinase Index 5.0 5.5 Creatinine Kinase MB (Mass) 1.11 1.16 Troponin I 0.150 *H 0.144 *H Sodium Level 138 Chloride Level 95 L Carbon Dioxide Level 31 Anion Gap 17 H Blood Urea Nitrogen 52 #H Creatinine 7.42 #H Glucose Level 108 Calcium Level 9.2 Phosphorus Level 6.1 H Magnesium Level 2.0 Total Bilirubin 0.3 Direct Bilirubin 0.00 Indirect Bilirubin 0.3 Aspartate Amino Transf (AST/SGOT) 16 Alanine Aminotransferase (ALT/SGPT) 22 Alkaline Phosphatase 65 Total Protein 6.6 Albumin 3.7 Globulin 2.90 Albumin/Globulin Ratio 1.27 Medications Medications Current Medications Dextrose (D50w Syringe) ONCE PRN IV POC BLOOD GLUCOSE <250 MG/DL Last administered on 12/29/16 10:42; Admin Dose 50 ML; Start 12/29/16 at 11:00 Ondansetron HCl (Zofran Inj) 4 mg Q6H PRN IV NAUSEA AND/OR VOMITING; Start at 12:00 Aspirin (Aspirin) 81 mg DAILY PO Last administered on 12/30/16 09:01; Admin Dose 81 MG; Start 12/30/16 at 09:00 Nitroglycerin (Nitroglycerin (Sl Tab) 0.4 Mg) 1 tab Q5M PRN SL CHEST PAIN; Start 12/29/16 at 12:00 Acetaminophen (Tylenol Tab) 650 mg Q6H PRN PO PAIN LEVEL 1-3 OR FEVER; Start at 12:00 Morphine Sulfate (morphine) 2 mg Q4H PRN IV PAIN LEVEL 7-10; Start 12/29/16 at 12:00 Zolpidem Tartrate (Ambien) 5 mg QHS PRN PO INSOMNIA; Start 12/29/16 at 12:00 Calcium/Vitamin D (Oyster Shell/ Vit-D (500/200)) 1 tab BID PO Last administered on 12/30/16 09:01; Admin Dose 1 TAB; Start 12/29/16 at 21:00 Clonidine (Catapres) 0.2 mg Q8H PRN PO SBP>170; Start 12/29/16 at 12:00 Cyanocobalamin (Vitamin B12) 500 mcg DAILY PO Last administered on 12/30/16 09 :01; Admin Dose 500 MCG; Start 12/30/16 at 09:00 Folic Acid (Folic Acid) 1 mg DAILY PO Last administered on 12/30/16 09:00; Admin Dose 1 MG; Start 12/30/16 at 09:00 Rosuvastatin Calcium (Crestor) 40 mg QHS PO Last administered on 12/29/16 21: 33; Admin Dose 40 MG; Start 12/29/16 at 21:00 Tamsulosin HCl (Flomax) 0.4 mg HS PO Last administered on 12/29/16 21:31; Admin Dose 0.4 MG; Start 12/29/16 at 21:00 Tiotropium [place] (Spiriva) 1 inh DAILY INH Last administered on 12/30/16 08: 59; Admin Dose 1 INH; Start 12/30/16 at 09:00 Valsartan (Diovan) 320 mg DAILY PO Last administered on 12/30/16 09:08; Admin Dose 320 MG; Start 12/30/16 at 09:00 Pantoprazole (Protonix Tab) 40 mg DAILY@06 PO Last administered on 12/30/16 06 :15; Admin Dose 40 MG; Start 12/30/16 at 06:00 Hydralazine HCl (Apresoline) 10 mg Q6H PRN IV SBP>170 Last administered on 12/30 09:39; Admin Dose 10 MG; Start 12/29/16 at 12:00 Colchicine (Colchicine) 0.3 mg TuFr@09 PO ; Start 01/01/17 at 09:00 Carvedilol (Coreg) 6.25 mg BID PO Last administered on 12/30/16 09:09; Admin Dose 6.25 MG; Start 12/30/16 at 09:00 CHARLES HAIRSTON Dec 30, 2016 10:38
[2016-12-30] MEDS ORDERED: LIDOCAINE 1% (MDV) 20 ML INJ ONE (12:07)
[2016-12-30] MEDS ORDERED: IODIXANOL LOCM 100 ML BTL ONE (12:07)
[2016-12-30] MEDS ORDERED: NITROGLYCERIN (IC) 100 MCG/ML INJ ONE (12:07)
[2016-12-30] MEDS ORDERED: VERAPAMIL 5 MG INJ ONE (12:07)
[2016-12-30] MEDS ORDERED: HEPARIN 1000 UNITS/NS (A-LINE) 1,000 ML ONE (12:07)
[2016-12-30] MEDS ORDERED: HEPARIN 1000 UNITS/ML 10 ML INJ ONE ×2 (12:07→13:52)
[2016-12-30] MEDS ORDERED: IOHEXOL 350MG/ML 50 ML BTL ONE (13:24)
[2016-12-30] MEDS ORDERED: FENTAnyl 50 MCG/ML VIAL ONE (14:50)
[2016-12-30] MEDS ORDERED: MIDAZOLAM 1 MG/ML 2 ML INJ ONE (14:50)
--- NOTE | 2016-12-30 14:54 | RADRPT ---
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 Physician: CHEMA CAVANAUGH Quality: Good Procedures: Transthoracic echocardiogram with complete 2D, M-Mode, and doppler examination. Indications: NSTEMI. 2D/M Mode Doppler Measurement Value Normal Ranges Measurement Value Normal Ranges LVIDd 2D 4.4 3.5 - 5.6 cm AV Mean Brent 1.3 m/sec LVIDs 2D 2.7 2.1 - 4.1 cm AV Mean PG 7.0 mmHg FS 2D 39.8 % AV Peak Brent 2.0 m/sec LVPWd 2D 1.3 0.6 - 1.1 cm AV Peak PG 16.0 mmHg IVSd 2D 1.2 0.6 - 1.1 cm AV VTI 41.9 cm IVS/LVPW 2D 1.0 LVOT Mean Brent 0.7 m/sec AoR Diam 2D 2.8 2.0 - 3.7 cm LVOT Mean PG 2.0 mmHg LA/Ao 2D 1 0 - 1 LVOT Peak Brent 1.3 m/sec EDV 2D 85.2 cm3 LVOT Peak PG 7.0 mmHg ESV 2D 18.6 cm3 LVOT VTI 31.8 cm LA Dimen 2D 4.1 2.3 - 4.0 cm MV E Peak Brent 1.3 m/sec MV A Peak Brent 1.1 m/sec MV E/A 1.2 MV Decel Time 229 msec MV E/A 1.2 TR Peak Brent 2.5 m/sec TR Peak PG 26.0 mmHg RVSP 29.0 mmHg Findings Left Ventricle: Normal left ventricular systolic function. Normal left ventricular cavity size. Mild concentric left ventricular hypertrophy. Ejection fraction is visually estimated at 65 %. Tissue Doppler/Mitral Doppler indices are consistent with pseudonormalization with mildly elevated left atrial pressure (Stage II diastolic dysfunction). Right Ventricle: Normal right ventricular size. Normal right ventricular systolic function. Left Atrium: There is mild enlargement of left atrium. Right Atrium: The right atrium is normal in size. Mitral Valve: Mitral valve leaflets appear mildly thickened. Mild mitral annular calcification. Trace mitral regurgitation. Aortic Valve: No significant aortic stenosis or insufficiency. Aortic cusps appear mildly calcified. Trileaflet aortic valve. Trace aortic valve regurgitation. Tricuspid Valve: Normal appearance and function of the tricuspid valve with trace physiologic regurgitation. Normal right ventricular systolic pressure. Estimated peak PA systolic pressure 29 mmHg. There is mild tricuspid regurgitation. Pulmonic Valve: Pulmonic valve not well visualized. Pericardium: Normal pericardium with no significant pericardial effusion. Aorta: Normal aortic root. IVC: Normal size and normal respiratory collapse consistent with normal right atrial pressure. Conclusions Normal left ventricular systolic function. Normal left ventricular cavity size. Mild concentric left ventricular hypertrophy. Ejection fraction is visually estimated at 65 %. Tissue Doppler/Mitral Doppler indices are consistent with pseudonormalization with mildly elevated left atrial pressure (Stage II diastolic dysfunction). Normal right ventricular size. Normal right ventricular systolic function. There is mild enlargement of left atrium. No significant aortic stenosis or insufficiency. Aortic cusps appear mildly calcified. Trileaflet aortic valve. Trace aortic valve regurgitation. Normal appearance and function of the tricuspid valve with trace physiologic regurgitation. Normal right ventricular systolic pressure. Estimated peak PA systolic pressure 29 mmHg. There is mild tricuspid regurgitation. Normal pericardium with no significant pericardial effusion. Normal size and normal respiratory collapse consistent with normal right atrial pressure. No Vegetation, masses, or thrombi seen. Electronically Signed By: Chema Cavanaugh 30-Dec-2016 14:53:48 -0700 Patient Name: DORI ARNDT Study Date: 30-Dec-2016 [id number]
[2016-12-30] MEDS ORDERED: SOD CHLORIDE 0.9% 1,000 ML IV SCH (15:41)
--- NOTE | 2016-12-30 15:56 | OPR ---
Date/Time of Note Date/Time of Note DATE: 12/30/16 TIME: 15:52 Operative Report Free Text/Dictation PROCEDURE PERFORMED: Left heart catheterization, Administration of Moderate Sedation PREOPERATIVE DIAGNOSES: 1. NSTEMI 2. Wide Complex Tachycardia 3. Coronary artery disease, status post previous PCI. POSTOPERATIVE DIAGNOSES: 1. Patent previous RCA stent. 2. Nonobstructive coronary artery disease. REFERRING PHYSICIAN: Yelena Mcallister MD and Jonathan Lake MD PROPERTY TECHNICIAN: Chema Craig MD BRIEF HISTORY: Mr. Kim is a 81-year-old man with a past medical history of hypertension as well as now end-stage renal disease on intermittent hemodialysis, as well as coronary artery disease, status post PCI to the right coronary artery 12/2015 with 3.0 x 18 Alpine drug-eluting stent. Patient is currently admitted to [facility] and for chest pain and sob, found to have mild troponin elevation. Pt with recurrent wide complex tachycardia overnight, hemodynamically stable and also with recurrent chest pain during dialysis. Echo did not show any wall motion abnormality. Therefore , he is brought to cardiac catheterization for further evaluation. PROCEDURE DESCRIPTION: Right groin was prepped and draped in usual sterile fashion and anesthetized with 1% lidocaine solution. Ultrasound prior to case showed moderate PAD of RCFA and LCFA, severe disease of LSFA. Decision was made to proceed with LHC via RCFA given LCFA/SFA disease and dialysis status. Under ultrasound guidance, access was obtained of the R INSULATION SPRAYER using modified seldinger technique. 6 Fr sheath placed in R INSULATION SPRAYER and angiogram obtained confirming placement in R INSULATION SPRAYER. Cineangiography was then obtained of the right and left coronary artery and standard views with the FR4 and FL4 6Fr diagnostic catheters. 6Fr pigtail then advanced over with to LV and pressures measured. pullback. At this point, there was no acute lesion or significant change from previous catheterization as well as patent RCA stent. Decision was made to conclude the procedure. All catheters and wires were removed and hemostasis obtained with a TR band. The patient did tolerate procedure well without any chest pain. Estimated blood loss was less than 20 mL. Hemostasis obtained with a 6 Fr M[employer]x Bistro Attendant closure device successfully. No specimens were obtained. HEMODYNAMICS: LVEDP is 16 mmHg. No significant gradient on LV to AO pullback. CORONARY ANATOMY: 1. Left main is a short large vessel. No significant disease. 2. LAD: Is a large sized wraparound vessel. Proximally is 3 to 3.5 mm with diffuse calcification and moderate disease, 30% to 40%. There is a small diagonal 1 followed by mid LAD with diffuse 20% to 30% disease and a second diagonal artery which is small and has a 70% proximal lesion. The LAD after D2 has a 40% lesion which is calcified. This is followed by area of 20% to 30% diffuse calcified disease. LAD distally has no significant disease. 3. Left circumflex: A large sized codominant artery. There is early ramus artery which is small in size approximately 2 mm with an ostial 40% lesion. The proximal and mid left circumflex vessel has mild diffuse disease, gives rise to a small OM2 and OM3. The AV groove circumflex is a small sized vessel and gives small left posterolateral vessels. There is no significant disease in these vessels. OM4 is a large sized vessel with mild diffuse disease proximally. 4. Right coronary artery is a large codominant artery. He has a widely patent stent in the mid portion. Distally it bifurcates into the right PDA and right PL vessel which has mild diffuse disease. CONCLUSIONS: 1. Patent right coronary stent. 2. No significant change in mild to moderate coronary artery disease in the LAD and circumflex. 3. Mildly elevated left ventricular filling pressures. 4. No acute lesion as culprit for elevated troponin, likely type II NSTEMI RECOMMENDATIONS: 1. Continue medical therapy for coronary artery disease Surgeon see signature line CHEMA CRAIG Dec 30, 2016 15:56
[2016-12-30] MEDS ORDERED: ACETAMINOPHEN 325 MG TAB PO PRN (16:00)
[2016-12-30] MEDS ORDERED: ONDANSETRON 4 MG INJ IV PRN (16:00)
[2016-12-30] MEDS ORDERED: AL HYDROX/MG HYDROX/SIMETH 30 ML CUP PO PRN (16:00)
--- NOTE | 2016-12-30 16:10 | RADRPT ---
Vent Rate: 75 bpm RR Interval: 0 msec CO Interval: 272 msec QRS Duration: 94 msec QT Interval: 456 msec QTC Interval: 509 msec P-R-T [place]: 61 - -20 - 39 degrees Sinus rhythm with 1st degree AV block with premature atrial complexes with aberrant conduction Prolonged QT Abnormal ECG Electronically Signed By: Chema Craig [id number]
[2016-12-30] MEDS: ROSUVASTATIN CALCIUM 40 MG TABLET PO SCH (20:41)
[2016-12-30] MEDS: TAMSULOSIN (SR) 0.4 MG CAP PO SCH (20:41)
[2016-12-31] VITALS (16 sets, daily range): BP systolic 120–173; BP diastolic 56–72; PULSE 64–95; RESP 18–20
[2016-12-31] MEDS: LEVOTHYROXINE 125 MCG TAB PO SCH (06:16)
[2016-12-31] MEDS: PANTOPRAZOLE (EC) 40 MG TAB PO SCH (06:16)
[2016-12-31] MEDS: TIOTROPIUM 18 MCG CAPSULE INHA DEV INH SCH (08:18)
[2016-12-31] MEDS: FOLIC ACID 1 MG TAB PO SCH (08:19)
[2016-12-31] MEDS: ASPIRIN 81 MG TAB PO SCH (08:19)
[2016-12-31] MEDS: CALCIUM/VITAMIN D (500/200) TAB PO SCH (08:19)
[2016-12-31] MEDS: CYANOCOBALAMIN 500 MCG TAB PO SCH (08:19)
[2016-12-31 08:52] LABS: BASOPHILS % 0.3 % (0.0-2.0); EOSINOPHILS # 0.2 10^3/ul (0.0-0.5); EOSINOPHILS % 2.4 % (0.0-7.0); HEMATOCRIT 30.5 % (42.0-52.0); HEMOGLOBIN 9.9 g/dl (14.0-18.0); LYMPHOCYTES # 1.2 10^3/ul (0.8-2.9); LYMPHOCYTES % 13.5 % (15.0-51.0); MEAN CORPUSCULAR HGB CONC 32.5 g/dl (32.0-37.0); MEAN CORPUSCULAR VOLUME 95.6 fl (82.0-101.0); MEAN PLATELET VOLUME 10.1 fl (7.4-10.4); MONOCYTE # 0.7 10^3/ul (0.3-0.9); MONOCYTES % 7.6 % (0.0-11.0); NEUTROPHIL # 6.8 10^3/ul (1.6-7.5); NEUTROPHILS % 75.8 % (39.0-77.0); PLATELET COUNT 191 10^3/UL (140-415); RED BLOOD COUNT 3.19 10^6/ul (4.70-6.10); RED CELL DISTRIBUTION WIDTH 15.2 % (11.5-14.5)
[2016-12-31] MEDS: VALSARTAN 160 MG TAB PO SCH (09:00)
[2016-12-31 09:03] LABS: CALCIUM 8.9 mg/dl (8.4-10.2); CREATININE 8.97 mg/dl (0.61-1.24); PHOSPHORUS 7.3 mg/dl (2.5-4.9); POTASSIUM 4.6 mmol/L (3.5-5.1)
--- NOTE | 2016-12-31 09:24 | HP ---
Date/Time of Note Date/Time of Note DATE: 12/31/16 TIME: 09:17 Assessment/Plan VTE Prophylaxis VTE Prophylaxis Intervention: ambulation, anti-embolic stocking Lines/Catheters IV Catheter Type (from Nrsg): Saline Lock Central line still needed: No Urinary Cath still in place: No Reason Cath still needed: urinary retention Assessment/Plan Assessment/Plan 1. Acute on chronic respiratory insufficiency, worsening of wheezing.Respiratory distress-failure;with severe sob.Pulmonary edema 2.. Leukocytosis improved 3. Chest pain during HD today(s/p 2 angiographies and stenting) cardiology consult. 4. End-stage renal disease-on HD-Discuses with . 5. Anxiety, depression with dissatisfaction 6. Diabetes type 2-better controlled 7. Osteoarthritis. 8. Anemia of chronic disease-H/H stable. 9. Status post multiple units of packed red blood cell transfusions. 10. Weight loss-more than 50lb in 8 months. 11. Hypertension-out of control during respiratory distress. 12. Memory impairment. 13. Major depression. 14. Back pain. 15. Benign prostatic hypertrophy. 16. S/P left forearm a/v shunt placement for dialysis-functions well , not mature yet. 17. S/P right Jugular vein cannulation for dialysis-no signs of infection. 18. Hypoxemia with hypercapnia on home 02 and BIPAP. 19. Anxiety; borderline personality; 20. Excessive thirst. 21. Constipation Cont'd Hospitalization Reason: plan to d/c today. HPI/ROS Admit Date/Time Admit Date/Time The patient presented with complaints of shortness of breath. Denies any chest pain but with nausea. No vomiting. Denies any fever or chills. Chest x-ray in the emergency room, which revealed extensive interstitial opacities throughout the bilateral lung zones likely representing chronic lung changes, however, superimposed interstitial infiltrate difficult to exclude, atherosclerotic vascular disease. potassium of 6.9, troponin elevated to 0.149. The patient was given treatment for hyperkalemia and patient will be admitted for further evaluation and management to telemetry Dec 29, 2016. Discussed with that I will continue the care from today on. ROS Subjective hx not possible: pt critical, pt critical status Constitutional: chills, diaphoresis, disoriented, fatigue, nausea, poor po, weight change, No febrile, No improved, No no complaints, No other Eyes: redness, visual change, No discharge, No no complaints, No other, No pain ENT: congestion, dysphagia, No bleeding, No discharge, No no complaints, No other, No pain, No sore throat Respiratory: cough, pain, shortness of breath, sputum, wheezing, No no complaints, No other, No pleuritic pain Cardiovascular: edema, lightheadedness, orthopenea, palpitations, paroxysmal nocturnal dyspnea, No chest pain, No no complaints, No other Gastrointestinal: constipation, flatus, nausea, no complaints, pain, vomiting Genitourinary: dysuria, no complaints, No bleeding, No discharge, No flank pain, No hematuria, No other Musculoskeletal: back pain, bone/joint pain, neck pain, No no complaints, No other, No restricted range of motion, No swelling Skin: bruising, pruritis, skin lesions Neurologic: confusion, dizziness, headache, other (on and off diso), No focal-weakness, No no complaints, No seizure, No syncope Endocrine: dry skin, temp intolerance, No no complaints, No other, No polydypsia, No polyuria, No weight change Lymphatic: No adenopathy, No lymphadema, No no complaints, No other, No tender nodes Psychological: anxiety, depression, No confusion, No nl mood/affect, No no complaints, No other, No suicidal Immunologic: No immunodeficiency, No no complaints, No other, No pruritis, No rhinitis, No urticaria PMH/Family/Social Past Medical History Medical History: no pertinent history (see the previouse reports(more than 10).), diabetes (controlled.) Past Surgical History Past Surgical Hx: angioplasty (av sergei placement.), other Family History Significant Family History: asthma, COPD (due to of toxic inhalations.), hypertension, renal disease, vascular disease Social History Alcohol Use: none Smoking Status: Former smoker Drug Use: none Exam/Review of Systems Vital Signs Vitals Vital Signs Date Time Temp Pulse Resp B/P Pulse Ox O2 Delivery O2 Flow Rate FiO2 12/31/16 08:33 95 12/31/16 08:06 98.2 19 173/68 93 12/31/16 04:20 Nasal Cannula 3.0 Intake and Output 12/30/16 12/30/16 12/31/16 15:00 23:00 07:00 Intake Total 80 ml 50 ml Balance 80 ml 50 ml Exam Constitutional: alert, distress, frail, oriented, well developed, No non-verbal, No other Psych: anxiety, depression, No confusion, No nl mood/affect, No no complaints, No other, No suicidal Head: atraumatic, normocephalic, No hematomas, No lacerations, No other Eyes: EOMI, PERRL, nl lids, No fundi, disc, No icteric, No nl conjunctiva, No nl sclera, No other ENMT: nl external ears & nose, nl nasal mucosa & septum, tympanic membranes, No intubated, No mucosa pink and moist, No nl lips & teeth, No other Neck: bruits, jvd, nuchal rigidity, No masses, No non-tender, No other, No supple, No thyromegaly Respiratory: congested cough, diminished breath sounds, respirations, wheezing , No clear to auscultation, No crackles/rales, No intercostal retraction, No labored breathing, No normal air movement, No other, No tactile fremitus Cardiovascular: bruits, edema, jugular venous distention (JVD), nl pulses, other (left cubital aarea bruit.), regular rate and rhythm, systolic murmur, No S3, No S4, No diastolic murmur, No gallop, No irregular rhythm, No murmurs /extra sounds, No rub Gastrointestinal: bowel sounds, distended, nl liver, spleen, soft, surgical scars, No ascites, No firm, No hepatomegaly, No mass, No non-tender, No other, No rebound or guarding, No splenomegaly, No tender Genitourinary - Male: CVA tenderness, nl penis, nl scrotum, No discharge, No other Musculoskeletal: joint tenderness, muscle tone, muscle weakness, No nl extremities to inspection, No nl gait and stance, No other, No range of motion, No spine non-tender, No swelling Extremities: tenderness, No calf tenderness, No clubbing, No cyanosis, No edema, No normal pulses, No other, No palpable cord, No pitting pedal edema Neurological: ACCOUNT CONSULTANT II-XII intact (decreased hearing.), No DTR's symmetric, No confused, No focal weakness, No lethargic, No nl mental status, No nl speech, No nl strength, No numbness, No other, No reflexes , No unresponsive Skin: diaphoresis, ecchymosis, nl turgor (decreased.), rash or lesions Lymph: No enlarged, No nl lymph nodes, No nontender, No other Labs Result Diagram: 12/31/16 0756 12/31/16 0756 Medications Medications Current Medications Dextrose (D50w Syringe) ONCE PRN IV POC BLOOD GLUCOSE <250 MG/DL Last administered on 12/29/16 10:42; Admin Dose 50 ML; Start 12/29/16 at 11:00 Ondansetron HCl (Zofran Inj) 4 mg Q6H PRN IV NAUSEA AND/OR VOMITING; Start at 12:00 Aspirin (Aspirin) 81 mg DAILY PO Last administered on 12/31/16 08:19; Admin Dose 81 MG; Start 12/30/16 at 09:00 Nitroglycerin (Nitroglycerin (Sl Tab) 0.4 Mg) 1 tab Q5M PRN SL CHEST PAIN; Start 12/29/16 at 12:00 Acetaminophen (Tylenol Tab) 650 mg Q6H PRN PO PAIN LEVEL 1-3 OR FEVER; Start at 12:00 Morphine Sulfate (morphine) 2 mg Q4H PRN IV PAIN LEVEL 7-10; Start 12/29/16 at 12:00 Zolpidem Tartrate (Ambien) 5 mg QHS PRN PO INSOMNIA; Start 12/29/16 at 12:00 Calcium/Vitamin D (Oyster Shell/ Vit-D (500/200)) 1 tab BID PO Last administered on 12/31/16 08:19; Admin Dose 1 TAB; Start 12/29/16 at 21:00 Clonidine (Catapres) 0.2 mg Q8H PRN PO SBP>170 Last administered on 12/30/16 10:55; Admin Dose 0.2 MG; Start 12/29/16 at 12:00 Cyanocobalamin (Vitamin B12) 500 mcg DAILY PO Last administered on 12/31/16 08 :19; Admin Dose 500 MCG; Start 12/30/16 at 09:00 Folic Acid (Folic Acid) 1 mg DAILY PO Last administered on 12/31/16 08:19; Admin Dose 1 MG; Start 12/30/16 at 09:00 Rosuvastatin Calcium (Crestor) 40 mg QHS PO Last administered on 12/30/16 20: 41; Admin Dose 40 MG; Start 12/29/16 at 21:00 Tamsulosin HCl (Flomax) 0.4 mg HS PO Last administered on 12/30/16 20:41; Admin Dose 0.4 MG; Start 12/29/16 at 21:00 Tiotropium [place] (Spiriva) 1 inh DAILY INH Last administered on 12/31/16 08: 18; Admin Dose 1 INH; Start 12/30/16 at 09:00 Valsartan (Diovan) 320 mg DAILY PO Last administered on 12/30/16 09:08; Admin Dose 320 MG; Start 12/30/16 at 09:00 Pantoprazole (Protonix Tab) 40 mg DAILY@06 PO Last administered on 12/31/16 06 :16; Admin Dose 40 MG; Start 12/30/16 at 06:00 Hydralazine HCl (Apresoline) 10 mg Q6H PRN IV SBP>170 Last administered on 12/30 09:39; Admin Dose 10 MG; Start 12/29/16 at 12:00 Colchicine (Colchicine) 0.3 mg TuFr@09 PO ; Start 01/01/17 at 09:00 Carvedilol (Coreg) 6.25 mg BID PO Last administered on 12/30/16 20:41; Admin Dose 6.25 MG; Start 12/30/16 at 09:00 Acetaminophen (Tylenol Tab) 650 mg Q4H PRN PO NON-CARDIAC PAIN LEVEL (1-3); Start 12/30/16 at 16:00 Al Hydrox/Mg Hydrox/Simethicone (Mag-Al Plus) 30 ml Q4H PRN PO GASTROINTESTINAL UPSET; Start 12/30/16 at 16:00 Ondansetron HCl (Zofran Inj) 4 mg Q4H PRN IV NAUSEA AND/OR VOMITING; Start at 16:00 HINA CASTILLO MD Dec 31, 2016 09:24
--- NOTE | 2016-12-31 12:31 | CONS ---
Date/Time of Note Date/Time of Note DATE: 12/31/16 TIME: 12:28 Assessment/Plan Assessment/Plan Chief Complaint/Hosp Course 1. End-stage renal disease. The patient will have hemodialysis today. This is his routine dialysis day. 2. Elevated troponin. No evidence of significant coronary artery blockage on left heart catheterization done yesterday. Cardiology feels that he had an NSTEMI. They recommended medical therapy for now. 3. The patient can be discharged after dialysis today to resume outpatient hemodialysis at the [facility] dialysis unit. We will follow him there. Problems: Consultation Date/Type/Reason Admit Date/Time Dec 29, 2016 at 09:54 Initial Consult Date 12/30/16 Type of Consultation: renal Referring Provider: HINA CASTILLO MD 24 HR Interval Summary Free Text/Dictation Patient is awake and alert. He is responsive and says that he is feeling better. He underwent a left heart catheterization yesterday without any intervention needed. Constitutional: improved, no complaints Exam/Review of Systems Vital Signs Vitals Vital Signs Date Time Temp Pulse Resp B/P Pulse Ox O2 Delivery O2 Flow Rate FiO2 12/31/16 12:21 64 12/31/16 11:45 98.4 19 160/56 95 12/31/16 07:50 Nasal Cannula 3.0 Intake and Output 12/30/16 12/30/16 12/31/16 15:00 23:00 07:00 Intake Total 80 ml 50 ml Balance 80 ml 50 ml Exam Constitutional: alert, frail, oriented Respiratory: clear to auscultation, normal air movement Cardiovascular: regular rate and rhythm Gastrointestinal: non-tender, soft Musculoskeletal: nl extremities to inspection Results Result Diagram: 12/31/16 0756 12/31/16 0756 Results 24 hrs Laboratory Tests Test 12/31/16 07:56 White Blood Count 9.0 Red Blood Count 3.19 L Hemoglobin 9.9 L Hematocrit 30.5 L Mean Corpuscular Volume 95.6 Mean Corpuscular Hemoglobin 31.0 Mean Corpuscular Hemoglobin Concent 32.5 Red Cell Distribution Width 15.2 H Platelet Count 191 Mean Platelet Volume 10.1 Neutrophils % 75.8 Lymphocytes % 13.5 L Monocytes % 7.6 Eosinophils % 2.4 Basophils % 0.3 Nucleated Red Blood Cells % 0.0 Neutrophils # 6.8 Lymphocytes # 1.2 Monocytes # 0.7 Eosinophils # 0.2 Basophils # 0.0 Nucleated Red Blood Cells # 0.0 Sodium Level 138 Potassium Level 4.6 Chloride Level 96 L Carbon Dioxide Level 28 Anion Gap 19 H Blood Urea Nitrogen 66 H Creatinine 8.97 H Glucose Level 89 Calcium Level 8.9 Phosphorus Level 7.3 H Medications Medications Current Medications Dextrose (D50w Syringe) ONCE PRN IV POC BLOOD GLUCOSE <250 MG/DL Last administered on 12/29/16 10:42; Admin Dose 50 ML; Start 12/29/16 at 11:00 Ondansetron HCl (Zofran Inj) 4 mg Q6H PRN IV NAUSEA AND/OR VOMITING; Start at 12:00 Aspirin (Aspirin) 81 mg DAILY PO Last administered on 12/31/16 08:19; Admin Dose 81 MG; Start 12/30/16 at 09:00 Nitroglycerin (Nitroglycerin (Sl Tab) 0.4 Mg) 1 tab Q5M PRN SL CHEST PAIN; Start 12/29/16 at 12:00 Acetaminophen (Tylenol Tab) 650 mg Q6H PRN PO PAIN LEVEL 1-3 OR FEVER; Start at 12:00 Morphine Sulfate (morphine) 2 mg Q4H PRN IV PAIN LEVEL 7-10; Start 12/29/16 at 12:00 Zolpidem Tartrate (Ambien) 5 mg QHS PRN PO INSOMNIA; Start 12/29/16 at 12:00 Calcium/Vitamin D (Oyster Shell/ Vit-D (500/200)) 1 tab BID PO Last administered on 12/31/16 08:19; Admin Dose 1 TAB; Start 12/29/16 at 21:00 Clonidine (Catapres) 0.2 mg Q8H PRN PO SBP>170 Last administered on 12/30/16 10:55; Admin Dose 0.2 MG; Start 12/29/16 at 12:00 Cyanocobalamin (Vitamin B12) 500 mcg DAILY PO Last administered on 12/31/16 08 :19; Admin Dose 500 MCG; Start 12/30/16 at 09:00 Folic Acid (Folic Acid) 1 mg DAILY PO Last administered on 12/31/16 08:19; Admin Dose 1 MG; Start 12/30/16 at 09:00 Rosuvastatin Calcium (Crestor) 40 mg QHS PO Last administered on 12/30/16 20: 41; Admin Dose 40 MG; Start 12/29/16 at 21:00 Tamsulosin HCl (Flomax) 0.4 mg HS PO Last administered on 12/30/16 20:41; Admin Dose 0.4 MG; Start 12/29/16 at 21:00 Tiotropium [place] (Spiriva) 1 inh DAILY INH Last administered on 12/31/16 08: 18; Admin Dose 1 INH; Start 12/30/16 at 09:00 Valsartan (Diovan) 320 mg DAILY PO Last administered on 12/30/16 09:08; Admin Dose 320 MG; Start 12/30/16 at 09:00 Pantoprazole (Protonix Tab) 40 mg DAILY@06 PO Last administered on 12/31/16 06 :16; Admin Dose 40 MG; Start 12/30/16 at 06:00 Hydralazine HCl (Apresoline) 10 mg Q6H PRN IV SBP>170 Last administered on 12/30 09:39; Admin Dose 10 MG; Start 12/29/16 at 12:00 Colchicine (Colchicine) 0.3 mg TuFr@09 PO ; Start 01/01/17 at 09:00 Carvedilol (Coreg) 6.25 mg BID PO Last administered on 12/30/16 20:41; Admin Dose 6.25 MG; Start 12/30/16 at 09:00 Acetaminophen (Tylenol Tab) 650 mg Q4H PRN PO NON-CARDIAC PAIN LEVEL (1-3); Start 12/30/16 at 16:00 Al Hydrox/Mg Hydrox/Simethicone (Mag-Al Plus) 30 ml Q4H PRN PO GASTROINTESTINAL UPSET; Start 12/30/16 at 16:00 Ondansetron HCl (Zofran Inj) 4 mg Q4H PRN IV NAUSEA AND/OR VOMITING; Start at 16:00 CHANTELL HICKMAN MD Dec 31, 2016 12:31
--- NOTE | 2016-12-31 20:55 | CONS ---
Date/Time of Note Date/Time of Note DATE: 12/31/16 TIME: 20:38 Assessment/Plan Assessment/Plan Chief Complaint/Hosp Course NSTEMI- type II, patent RCA stent on cath, no interval change - asa 81mg daily - cont rosuvastatin - cont bb WCT - no EKG available for review, on tele appears to have multiple 3-4 min runs of WCT at rate around 120 12/29. suspect more SVT with aberrancy. LHC negative for acute ischemia. no recurrenc on tele - cont carvedilol, titrate as tolerated - f/u as outpt HTN- high on admission, - cont home regimen, coreg/valsartan - add ccb if uncontrolled Chronic diastolic HF- difficult fluid mgmt with iHD - symptomatically improved - cont fluid removal as tolerated - bp control as above Anemia- likely from ESRD Problems: Consultation Date/Type/Reason Admit Date/Time Dec 29, 2016 at 09:54 Initial Consult Date 12/30/16 Type of Consultation: cardiology Referring Provider: HINA CASTILLO MD 24 HR Interval Summary Free Text/Dictation pt seen this am, no cp/sob. no palpitations. tele reviewed, rare pvcs. no arrhythmia Detailed Summary Respiratory: no complaints Cardiovascular: no complaints Gastrointestinal: no complaints Exam/Review of Systems Vital Signs Vitals Vital Signs Date Time Temp Pulse Resp B/P Pulse Ox O2 Delivery O2 Flow Rate FiO2 12/31/16 16:29 71 12/31/16 15:54 98.3 18 146/60 98 12/31/16 07:50 Nasal Cannula 3.0 Intake and Output 12/30/16 12/30/16 12/31/16 15:00 23:00 07:00 Intake Total 80 ml 50 ml Balance 80 ml 50 ml Exam Constitutional: alert, oriented Psych: nl mood/affect, no complaints Head: atraumatic, normocephalic Eyes: EOMI, nl conjunctiva ENMT: nl external ears & nose, nl lips & teeth, nl nasal mucosa & septum Neck: non-tender, supple, No jvd Respiratory: crackles in bases Cardiovascular: nl pulses, regular rate and rhythm, systolic murmur, No S3, No S4, No bruits, No diastolic murmur, No irregular rhythm, No jugular venous distention (JVD). groin soft, no ttp. no hematoma Gastrointestinal: non-tender, soft Musculoskeletal: nl extremities to inspection, nl gait and stance Extremities: normal pulses Neurological: IMAGING CENTER MANAGER II-XII intact, nl mental status, nl speech, nl strength Skin: nl turgor Results Result Diagram: 12/31/16 0756 12/31/16 0756 Results 24 hrs Laboratory Tests Test 12/31/16 07:56 White Blood Count 9.0 Red Blood Count 3.19 L Hemoglobin 9.9 L Hematocrit 30.5 L Mean Corpuscular Volume 95.6 Mean Corpuscular Hemoglobin 31.0 Mean Corpuscular Hemoglobin Concent 32.5 Red Cell Distribution Width 15.2 H Platelet Count 191 Mean Platelet Volume 10.1 Neutrophils % 75.8 Lymphocytes % 13.5 L Monocytes % 7.6 Eosinophils % 2.4 Basophils % 0.3 Nucleated Red Blood Cells % 0.0 Neutrophils # 6.8 Lymphocytes # 1.2 Monocytes # 0.7 Eosinophils # 0.2 Basophils # 0.0 Nucleated Red Blood Cells # 0.0 Sodium Level 138 Potassium Level 4.6 Chloride Level 96 L Carbon Dioxide Level 28 Anion Gap 19 H Blood Urea Nitrogen 66 H Creatinine 8.97 H Glucose Level 89 Calcium Level 8.9 Phosphorus Level 7.3 H Imaging Free Text/Dictation provider notes and imaging reports reviewed in emr TATA CAVANAUGH Dec 31, 2016 20:54
[2017-01-01] MEDS ORDERED: COLCHICINE 0.6 MG TAB PO SCH (09:00)
--- NOTE | 2017-01-01 09:10 | PDOCDIS ---
Discharge Instructions CONDITION Patient Condition: Serious HOME CARE INSTRUCTIONS: Diet Instructions: Low Fat /CholesterolSpecial Diet: Cardiac ACTIVITY: Activity Restrictions: Slowly Increase Activity Bathing Restrictions: Shower FOLLOW UP/APPOINTMENTS Follow-up Plan in 4 days. in 1-2 days. SCHOOL/WORK RELEASE May return to School/Work with: none. HINA CASTILLO MD Jan 01, 2017 09:09
--- NOTE | 2017-01-01 09:13 | DS ---
Date/Time of Note Date/Time of Note DATE: 01/01/17 TIME: 09:10 Discharge Summary Admission/Discharge Info Admit Date/Time Dec 29, 2016 at 09:54 Discharge Date/Time Dec 31, 2016 at 18:29 Discharge Diagnosis 1. Acute on chronic respiratory insufficiency, worsening of wheezing.Respiratory distress-failure;with severe sob.Pulmonary edema 2.. Leukocytosis improved 3. Chest pain during HD today(s/p 2 angiographies and stenting) cardiology consult. 4. End-stage renal disease-on HD-Discuses with . 5. Anxiety, depression with dissatisfaction 6. Diabetes type 2-better controlled 7. Osteoarthritis. 8. Anemia of chronic disease-H/H stable. 9. Status post multiple units of packed red blood cell transfusions. 10. Weight loss-more than 50lb in 8 months. 11. Hypertension-out of control during respiratory distress. 12. Memory impairment. 13. Major depression. 14. Back pain. 15. Benign prostatic hypertrophy. 16. S/P left forearm a/v shunt placement for dialysis-functions well , not mature yet. 17. S/P right Jugular vein cannulation for dialysis-no signs of infection. 18. Hypoxemia with hypercapnia on home 02 and BIPAP. 19. Anxiety; borderline personality; 20. Excessive thirst. 21. Constipation Patient Condition: Serious Consults . Procedures HD. Hx of Present Illness Severe sob imroved after the HD and fluid restrictions with breathing treatment. Will cont. outpatient hd and f/u. Hospital Course NSTEMI- type II, patent RCA stent on cath, no interval change - asa 81mg daily - cont rosuvastatin - cont bb WCT - no EKG available for review, on tele appears to have multiple 3-4 min runs of WCT at rate around 120 12/29. suspect more SVT with aberrancy. LHC negative for acute ischemia. no recurrenc on tele - cont carvedilol, titrate as tolerated - f/u as outpt HTN- high on admission, - cont home regimen, coreg/valsartan - add ccb if uncontrolled Chronic diastolic HF- difficult fluid mgmt with iHD - symptomatically improved - cont fluid removal as tolerated - bp control as above Anemia- likely from ESRD Home Meds Reported Medications Tiotropium Jewett* (Spiriva*) 18 Mcg Cap.w.dev, 1 CAP INHALATION DAILY, #30 CAP 12/29/16 Calcium Carbonate/Vitamin D3 (OYSTER SHELL 500 MG + VIT D TB) 1 Each Tablet, 1 EACH PO BID, TAB 12/29/16 Rosuvastatin Calcium* (Crestor*) 20 Mg Tablet, 20 MG PO QHS, #30 TAB 12/29/16 Rosuvastatin Calcium* (Crestor*) 40 Mg Tablet, 40 MG PO QHS, #30 TAB 12/29/16 Albuterol Sulfate* (Albuterol Sulfate* Neb) 0.083%-3 Ml Neb, 1.25 MG NEB Q4H Y for WHEEZING AND SOB, #30 VIAL 12/29/16 Cyanocobalamin* (Vitamin B12*) 500 Mcg Tab, 500 MCG PO DAILY, TAB 12/29/16 Esomeprazole Mag Trihydrate (Nexium) 40 Mg Capsule.dr, 40 MG PO DAILY, #30 CAP 12/29/16 Tamsulosin Hcl* (Tamsulosin Hcl*) 0.4 Mg Cap.er.24h, 0.4 MG PO HS, CAP 12/29/16 Colchicine* (Colcrys*) 0.6 Mg Tablet, 0.6 MG PO BID, TAB 12/29/16 Valsartan* (Diovan*) 320 Mg Tablet, 320 MG PO DAILY, TAB 12/29/16 Levothyroxine Sodium* (Levothyroxine Sodium*) 125 Mcg Tablet, 125 MCG PO BEFORE BREAKFAST, #30 TAB 12/29/16 Folic Acid* (Folic Acid*) 1 Mg Tablet, 1 MG PO DAILY, TAB 12/29/16 Clonidine Hcl* (Clonidine Hcl*) 0.2 Mg Tablet, 0.2 MG PO Q8 Y for ELEVATED BLOOD PRESSURE, TAB 12/29/16 Aspirin* (Aspirin* EC) 81 Mg Tablet.dr, 81 MG PO DAILY, TAB 12/29/16 Carvedilol* (Coreg*) 3.125 Mg Tablet, 3.125 MG PO BID, #60 TAB 12/29/16 Discontinued Reported Medications Prednisolone* (Prelone*) 15 Mg/5 Ml Solution, 15 MG PO DAILY, ML 06/02/16 Multivit/Ca Carb/B Cmplx/Fa* (Katlyn-Michael*) 1 Tab Tab, 1 TAB PO DAILY, TAB 06/02/16 Insulin Aspart (Novolog) 100 Unit/1 Ml Cartridge, 0 SQ SLIDING SCALE BEFORE MEALS; 200-250=2 UNITS, 251-300=4 UNITS, 301-350=6 UNITS, 351-400=8 UNITS,>400=10 UNITS AND CALL 06/02/16 Docusate Sodium* (Docusate Sodium*) 100 Mg Capsule, 100 MG PO Q12, #60 CAP 06/02/16 Sennosides* (Senna Lax*) 8.6 Mg Tablet, 1 TAB PO DAILY Y for CONSTIPATION, TAB 01/13/16 Levothyroxine Sodium* (Levothyroxine Sodium*) 125 Mcg Tablet, 125 MCG PO BEFORE BREAKFAST, #30 TAB 11/28/15 Discontinued Scripts Amiodarone Hcl* (Amiodarone Hcl*) 200 Mg Tablet, 200 MG PO DAILY for 30 Days, # 30 TAB Prov:YELENA CASTILLO MD 10/29/16 Aspirin (Aspirin) 81 Mg Chew, 81 MG PO DAILY for 30 Days, #30 TAB Prov:YELENA CASTILLO MD 09/22/16 Valsartan* (Diovan*) 160 Mg Tablet, 320 MG PO DAILY for 30 Days, #30 TAB HOLD IF SBP<110;HR Prov:YELENA CASTILLO MD 09/22/16 Calcium Acetate* (Calcium Acetate*) 667 Mg Capsule, 667 MG PO WITH MEALS for 30 Days, #30 CAP Prov:YELENA CASTILLO MD 09/22/16 Tiotropium Jewett* (Spiriva*) 18 Mcg Cap.w.dev, 1 INH INH BID for 30 Days, #60 CAP Prov:YELENA CASTILLO MD 09/22/16 Nifedipine (Procardia Xl) 30 Mg Tab.er.24, 30 MG PO BID for 30 Days, #30 TAB Prov:YELENA CASTILLO MD 09/22/16 Minoxidil* (Lonitin*) 2.5 Mg Tab, 5 MG PO BID for 30 Days, #60 TAB Prov:YELENA CASTILLO MD 09/22/16 Clonidine Hcl* (Clonidine Hcl*) 0.1 Mg Tab, 0.1 MG PO TID for 30 Days, #90 TAB Prov:YELENA CASTILLO MD 09/22/16 Carvedilol* (Carvedilol*) 12.5 Mg Tablet, 12.5 MG PO BID for 30 Days, #60 TAB Prov:YELENA CASTILLO MD 09/22/16 Albuterol Sulfate* (Albuterol Sulfate* Neb) 0.083%-3 Ml Neb, 2.5 MG HHN Q6HWA RESP THERAPY for 30 Days, #90 BLIST PACK Prov:YELENA CASTILLO MD 09/22/16 Acetaminophen* (Tylenol*) 325 Mg Tablet, 650 MG PO Q6H Y for PAIN AND OR ELEVATED TEMP for 30 Days, #90 TAB Prov:YELENA CASTILLO MD 09/22/16 Tamsulosin Hcl* (Tamsulosin Hcl*) 0.4 Mg Cap.er.24h, 0.4 MG PO HS for 30 Days, # 30 CAP Prov:YELENA CASTILLO MD 09/22/16 Salmeterol Xinaf-Fluticasone* (Advair*) 500/50 Diskus Inhaler, 1 INH INH BID for 30 Days, #1 CAP.EC Prov:YELENA CASTILLO MD 04/28/16 Pantoprazole* (Pantoprazole*) 40 Mg Tablet.dr, 40 MG PO DAILY@06 for 30 Days, # 30 BOX Prov:YELENA CASTILLO MD 04/28/16 Follow-up Plan in 4 days. in 1-2 days. Primary Care Provider Yelena Castillo MD Time spent on discharge: > 30 minutes YELENA CASTILLO MD Jan 01, 2017 09:13
== END 2016-12-31 18:29 | disposition home or self-care (01) | DRG 280 ==
LOC: E/R 08:12 → MS4 09:54
PROVIDERS: ADMIT Internal Medicine; ATTEND Internal Medicine
PROC: 5A1D00Z (ICD-10-PCS; 2016-12-29)
PROC: 4A023N7 Measurement of Cardiac Sampling and Pressure, Left Heart, Percutaneous Approach (ICD-10-PCS; 2016-12-30)
PROC: B2101ZZ Fluoroscopy of Single Coronary Artery using Low Osmolar Contrast (ICD-10-PCS; principal; 2016-12-30 13:30)
DX: I21.4 Non-ST elevation (NSTEMI) myocardial infarction (principal); J96.20 Acute and chronic respiratory failure, unspecified whether with hypoxia or hypercapnia; I13.2 Hypertensive heart and chronic kidney disease with heart failure and with stage 5 chronic kidney disease, or end stage renal disease; N18.6 End stage renal disease; I50.32 Chronic diastolic (congestive) heart failure; I25.10 Atherosclerotic heart disease of native coronary artery without angina pectoris; I11.0 Hypertensive heart disease with heart failure; D72.829 Elevated white blood cell count, unspecified; E11.22 Type 2 diabetes mellitus with diabetic chronic kidney disease; F41.9 Anxiety disorder, unspecified; F32.9 Major depressive disorder, single episode, unspecified; M19.90 Unspecified osteoarthritis, unspecified site; R41.3 Other amnesia; M54.9 Dorsalgia, unspecified; N40.0 Benign prostatic hyperplasia without lower urinary tract symptoms; R63.1 Polydipsia; K59.00 Constipation, unspecified; D63.1 Anemia in chronic kidney disease; E87.5 Hyperkalemia; Z99.2 Dependence on renal dialysis; R00.0 Tachycardia, unspecified
CPT/HCPCS: 71010; 80048; 80053; 82550; 82553; 82962; 83735; 84100; 84132; 84484; 85025; 90935; 93005; 93306; 93458; 96374; 96375; C1769; C1887; C1894; J0282; J0360; J1644; J1815; J2250; J3010; J7030; Q9967

== ENCOUNTER 2017-04-30 00:16 | Inpatient (IN) | END 2017-05-28 03:35 | disposition hospice, inpatient (51) | DRG 299 ==